=== PATIENT | male | born 1950 | race Caucasian/White ===

== ENCOUNTER 2023-05-14 11:08 | Outpatient (CLI) | payer MEDICARE, SELFPAY ==
[2023-05-14 11:32] LABS: Basophils Absolute Auto 0.1 K/mm3 (0.0-0.1); Eosinophils Absolute Auto 0.4 K/mm3 (0-0.3); Eosinophils Percent Auto 5.9 % (0-4.4); Hemoglobin 12.7 g/dL (14.0-18.0); Immature Granulocyte Absolute 0.02 K/mm3 (0.00-0.031); Immature Granulocyte Percent A 0.3 % (0-0.5); Lymphocytes Absolute Auto 1.61 K/mm3 (0.9-3.2); Lymphocytes Percent Auto 22.7 % (18.3-44.2); Mean Corpuscular HGB Conc 33.4 g/dl (32-36); Mean Corpuscular Hemoglobin 31.4 pg (26-34); Mean Corpuscular Volume 93.8 fl (80-100); Mean Platelet Volume 9.5 fl (7.4-10.4); Monocytes Percent Auto 13.8 % (2.6-8.5); Neutrophils Percent Auto 56.3 % (45.5-73.1); Platelet Count Result 312 k/mm3 (150-375); Red Blood Count 4.05 M/mm3 (4.6-6.20); Red Cell Distribution Width 13.8 % (11.5-14.5); White Blood Count 7.1 K/mm3 (4.5-10.0)
[2023-05-14 20:51] LABS: Iron 117 ug/dL (49-181)
[2023-05-14 21:02] LABS: Percent Iron Saturation 44 % (20-50)
[2023-05-14 21:30] LABS: Alanine Aminotransferase 16 U/L (6-50); Albumin Level 4.6 g/dL (3.5-5.1); Alkaline Phosphatase 94 U/L (38-126); Anion Gap 8 mmol/L (8-16); Aspartate Amino Transferase 29 U/L (17-59); Bilirubin,Total 0.9 mg/dL (0.2-1.3); Blood Urea Nitrogen 18 mg/dL (9-20); Calcium 9.9 mg/dL (8.4-10.2); Carbon Dioxide 24 mmol/L (22-30); Chloride 102 mmol/L (98-107); Estimated Glomerular Filt Rate > 60; Glucose 87 mg/dL (65-110); Lactate Dehydrogenase 159 U/L (120-246); Potassium 5.1 mmol/L (3.4-5.0); Sodium 134 mmol/L (137-145)
[2023-05-14 22:36] LABS: Folic Acid > 20.0 ng/mL (2.76->20)
[2023-05-17 20:10] LABS: Methylmalonic Acid 86 nmol/L (87-318)
[2023-05-19 16:54] LABS: Soluble Transferrin Receptor 0.75 mg/L (0.76-1.76)
== END 2023-05-14 11:09 | disposition home or self-care (01) ==
LOC: ANHLAB 11:13
PROVIDERS: Nurse Practitioner Family; Visit Provider Internal Medicine Hematology & Oncology
DX: D64.9 Anemia, unspecified (principal)
CPT/HCPCS: 36415; 80053; 82607; 82728; 82746; 83540; 83550; 83615; 83921; 84238; 85025

== ENCOUNTER 2024-12-10 03:08 | Emergency (ER) | payer MEDICARE, SELFPAY ==
--- NOTE | ~2024-12-10 | CT_ITS ---
EXAMINATION: CT cervical spine wo con DATE: 12/10/2024 03:50 INDICATION: Head injury post fall TECHNIQUE: Computed tomography (CT) of the cervical spine was performed without intravenous contrast. Automated exposure control and iterative reconstruction technique were employed. The dose-length pro duct was 318.69 mGy-cm. COMPARISON: None FINDINGS: Mild cervical levocurvature. Sagittal alignment is normal. Severe osteoarthritis at the atlantoaxial articulation. Vertebral body heights are normal. No fracture. Severe disc height loss with degenerati ve endplate changes and moderate left-sided and severe right-sided uncovertebral osteoarthritis. Mode rate disc height loss at C6-C7. Mild uncovertebral osteoarthritis at the remaining levels. Mild to mo derate multilevel cervical facet osteoarthritis. Atherosclerotic calcific a cyst at the bilateral car otid bulbs. Mild emphysema and mild biapical pleural-parenchymal scarring. Partially visualized to a cardiac pacemaker and reverse right total shoulder arthroplasty seen on the robotics specialist topogram. IMPRESSION: 1. Severe lower cervical spondylosis. No acute osseous abnormality. Reviewed, dictated and finalized at location A.
--- NOTE | ~2024-12-10 | CT_ITS ---
EXAMINATION: CT brain wo con DATE: 12/10/2024 03:50 INDICATION: Head injury post fall TECHNIQUE: Computed tomography (CT) of the head was performed without intravenous contrast. Sagittal and coronal reconstructions were performed. The mA was adjusted according to patient size. Iterative reconstruction technique was employed. The dose-length product was 681.00 mGy-cm. COMPARISON: None FINDINGS: No fracture. Small amount of subarachnoid hemorrhage along a few of the sulci in the right occipital lobe. There are multiple old infarcts including In bilateral occipital lobes, bilateral frontoparieta l regions, bilateral thalami and bilateral basal ganglia. No evident acute infarct. There is extensiv e scattered white matter hypoattenuation consistent with chronic small vessel ischemic disease. Symme tric prominence of the sulci and ventricles consistent with moderateage-appropriate diffuse cerebral volume loss. No mass/mass effect. Changes of bilateral intraocular lens replacement. The orbits, para nasal sinuses and mastoid air cells are normal. Intracranial calcified cerebral atherosclerosis is no jyoti. IMPRESSION: 1. Subarachnoid hemorrhage at the right occipital lobe. 2. 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 2. Age-related changes including moderate diffuse volume loss and extensive white matter hypoattenuat ion consistent with chronic small vessel ischemic disease. Reviewed, dictated and finalized at location A. IMPRESSION: 1. Subarachnoid hemorrhage at the right occipital lobe. 2. Multiple old infarcts in the bilateral thalami, basal ganglia and cerebral h emispheres. 2. Age-related changes including moderate diffuse volume loss and extensive whi te matter hypoattenuation consistent with chronic small vessel ischemic disease .
[2024-12-10 03:08] VITALS: BP 124/62; PULSE 73; RESP 17; O2SAT 98
[2024-12-10 03:31] VITALS: BP 121/61; PULSE 67; RESP 12; O2SAT 98
[2024-12-10 03:51] VITALS: BP 118/59; PULSE 65; RESP 14; TEMP 36.6; O2SAT 98
--- NOTE | 2024-12-10 04:00 | PC.NURSE ---
Nicole called and made aware pt is being transferred to [facility] for higher level of care.
[2024-12-10 04:01] VITALS: BP 120/58; PULSE 60; RESP 12; O2SAT 97
--- NOTE | 2024-12-10 04:19 | ED.FALL ---
HPI - Fall General Chief Complaint: Fall Stated Complaint: FALL Time Seen by Provider: 12/10/24 03:08 History of Present Illness HPI Narrative: Patient is a 74-year-old male who presents to the emergency department this evening status post a ground level fall at his nursing facility. Patient was found face down on the ground. He was recently discharged from [facility] after pacemaker placement and was at this group home for only 1 day. Patient was started on blood thinners after the pacemaker placement with Eliquis. Patient denies any loss of consciousness. States that he was trying to reach for something and accidentally reached too far causing him to fall forward. He denies any additional symptoms or concerns. He is answering all my questions appropriately and is alert oriented to person, place, time and situation. Related Data Allergies Allergy/AdvReac Type Severity Reaction Status Date / Time meperidine Allergy Intermediate Vomiting Verified 12/10/24 04:30 Review of Systems Review of Systems: All systems are reviewed and are negative unless stated otherwise in the HPI. Exam Narrative: General: Alert, awake, afebrile, in no acute distress. HEENT: PERRL, no rhinorrhea, no post nasal drip, oropharynx clear. Neck: Trachea midline, no JVD, no lymphadenopathy. Cardiovascular: Regular rate and rhythm, no murmurs, rubs or gallops, no peripheral edema. Respiratory: Clear to auscultation bilaterally, no tachypnea, no wheezing, no rhonchi, no rubs, no respiratory distress. Abdomen: Soft, nontender, nondistended, no rebound, no guarding, no peritoneal signs. Musculoskeletal: No joint swelling or deformity, normal muscle tone. Skin: No rashes or petechia, no signs of infection. Psychiatric: Alert and oriented, normal behavior and judgment for situation. Neurological: Alert and oriented to person, place, and time. Follows all commands. Moving all extremities spontaneously, cranial nerves 2-12 grossly intact, sensation intact bilateral upper and lower extremity. No focal deficits, speech is clear and fluent. Course Vital Signs Vital signs: Vital Signs Pulse Rate 73 12/10/24 03:08 Respiratory Rate 17 12/10/24 03:08 Blood Pressure 124/62 12/10/24 03:08 Pulse Oximetry 98 12/10/24 03:08 Oxygen Delivery Room Air 12/10/24 03:08 Temperature 98 F 12/10/24 03:51 Pulse Rate 60 12/10/24 04:01 Respiratory Rate 12 12/10/24 04:01 Blood Pressure 120/58 L 12/10/24 04:01 Pulse Oximetry 97 12/10/24 04:01 Oxygen Delivery Room Air 12/10/24 03:08 MDM - Fall MDM Narrative Medical decision making narrative: The patient was evaluated by myself in the emergency department. History is obtained from patient who is an independent historian and physical exam was performed. External medical records were reviewed at this time. IV was established and pertinent tests were ordered. Imaging studies obtained included a CT brain and C-spine without IV contrast which was independently interpreted by me revealing trace hemorrhage overlying the right occipital lobe, which is pending final radiology interpretation. Differential diagnosis considerations include fractures, dislocations, intracranial hemorrhage. Comorbidities impacting this visit include thinner use. I have evaluated and discussed social determinants of health with the patient that could potentially impact subsequent diagnosis and treatment plans. On repeat assessment of the patient, reevaluation revealed that the patient is doing well and is in no acute distress. Patient symptoms have remained stable since he arrived to our emergency department. Repeat vital signs were all reviewed and noted to be stable. Differential diagnosis and treatment plan were discussed with the patient at bedside. Patient agrees with discussion and after shared medical decision making agrees with transfer. All questions were answered to the patient's satisfaction. [facility] transfer line was contacted at 0430 and transfer was initiated. Transfer was accepted under accepting physician Dr. Acevedo at 0440. Given the patient is on Eliquis. He was started on PCC for reversal. Critical care time of 50 minutes, exclusive of separately performed procedures, necessary for treating or preventing eminent or life-threatening deterioration of patient's condition of traumatic intracranial hemorrhage require reversal agent with Kcentra, focused on patient care provided personally by me and time spent during initial evaluation, physical examination, ordering and performing treatments and interventions, ordering and reviewing laboratory studies, ordering and reviewing radiographic studies, re-evaluation of the patient's condition, evaluation of the patient's response to treatment, and discussion of patient case with consultants/accepting physician at transfer facility. Critical Care Time Critical Care Time Critical Care Time: Yes Total Critical Care Time: 50 (Please refer to [facility] for attestation) Discharge Plan Discharge Clinical Impression: Fall from ground level, Subarachnoid hemorrhage Patient Disposition: Acute Care Hospital Condition: Stable Patient Language: Guyanese Follow-up/Referrals: UNKNOWN,DOCTOR [Primary Care Provider] - Time of Disposition: 04:20
--- NOTE | 2024-12-10 04:30 | PC.NURSE ---
CHARAN Benjamin from [facility] made aware pt being transferred.
--- OUTSIDE RECORDS SUMMARY | 2024-12-10 04:31 | XMS_ITS | Clinical Summary ---
Author Organization [facility] Address [address] [place] [address] Care Team Providers Care Food Mixer Repairer Name Role Phone Latanya Callejas MD Primary Care Provider Source Comments [facility],non-owned Affiliates and Associated Physician Practices is amultiple site organization consisting of ambulatory clinics and hospital sitesin [place], [place], [place] and [place]. This disclosure is being madepursuant to the Care Everywhere program and may not contain all information available regarding this patient. Last updated 18.[facility] Allergies Active Allergy Reactions Criticality Noted Date Comments Meperidine Other,Vomiting Low 10/16/2008 Medications * Be aware that medications may not be up to date on this document. Alwaysverify current medications with the patient. atorvastatin (Lipitor) 80 MG tablet Take 1 (one) tablet by mouth once daily Active cetirizine (ZyrTEC) 10 MG tablet Take 1 (one) tablet by mouth every morning 09/02/2023 Active clopidogrel (plaVIX) 75 MG tablet Take 1 (one) tablet by mouth every morning Active ezetimibe (Zetia) 10 MG tablet 10/12/2023 Active ferrous sulfate 325 (65 FE) MG tablet Take by mouth once daily Active lisinopril (Prinivil; Zestril) 10 MG tablet Take 1 (one) tablet by mouth once daily Active magnesium oxide (Mag-Ox) 400 MG tablet Take 1 tablet every day by oral route. Active Thiamine HCl (GNP Vitamin B-1) 100 MG TABS 09/24/2023 Active folic acid (Folvite) 1 MG tablet Take 1 (one) tablet by mouth once daily Active fluticasone propionate (Flonase) 50 MCG/ACT nasal spray 04/04/2024 Active apixaban (Eliquis) 5 MG tablet Take 1 (one) tablet by mouth 2 times daily 180 tablet 3 06/21/2024 Active metoprolol tartrate IR (Lopressor) 25 MG tablet Take 1 (one) tablet by mouth 2 times daily 180 tablet 3 06/21/2024 Active Aspirin 81 MG CAPS aspirin 81 mg tablet Active tamsulosin (Flomax) 0.4 MG capsule Take 1 (one) capsule by mouth once daily At the same time every day after a meal. 30 capsule 1 10/14/2024 Active Active Problems Problem Noted Date Diagnosed Date History of hypertension 06/10/2024 Vertebral artery stenosis, unspecified lateralit y 03/10/2024 Lightheadedness 03/08/2024 History of stroke 02/19/2024 Bradycardia 02/18/2024 Paresthesia 12/11/2023 Vertebral artery stenosis 12/02/2023 Transient ischemic attack 11/09/2023 Supraventricular tachycardia 10/20/2023 Glenohumeral arthritis, right 05/29/2023 Hyponatremia 02/24/2023 Anemia 11/04/2022 Environmental allergies 11/04/2022 Hyperglycemia 11/04/2022 Pain in joint of right shoulder 11/04/2022 Vitamin D deficiency 11/04/2022 Diverticulitis 01/14/2022 Abnormal cardiovascular stress test 10/22/2021 Chronic rhinitis 01/30/2020 Diplopia 01/30/2020 Essential hypertension 01/30/2020 Wax in ear 01/30/2020 Nocturia 09/05/2016 Dizziness and giddiness 11/22/2015 Sinus bradycardia 11/22/2015 Atherosclerotic heart diseas e of [place] coronary artery without angina pectoris 06/01/1959 Hyperlipidemia 06/01/1959 Shortness of breath 06/01/1959 Resolved Problems Problem Noted Date Diagnosed Date Resolved Date Upper respiratory infection 12/08/2023 03/03/2024 Encounters Date Type Department Care Team Description 10/25/2024 9:24 AM CDT - 10/25/2024 2:12 PM CDT Hospital Encounter [facility] [address] [place] [address] Tyrone Huang MD [facility] Discharge Disposition: Home or Self Care 10/25/2024 Travel 10/21/2024 Telephone [facility] [address] [place] [address] Bbee Feliciano RN Procedure (Pre-Call) 10/19/2024 Refill [facility] [id number] [place] [phone] Meliza Flanagan, OPERATIONS OFFICER AFLOAT-GLOBAL POSITION SYSTEM TECHNICIAN Refill Request 10/14/[address] [phone] Meliza Flanagan, OPERATIONS OFFICER AFLOAT-GLOBAL POSITION SYSTEM TECHNICIAN MEDICATION REFILL 09/28/2024 2:00 PM CDT Office Visit [address] [phone] Tyrone Huang MD Bilateral carotid artery stenosis (Primary Dx); Vertebral artery stenosis, unspecified laterality 09/20/[address] [phone] Tyrone Huang MD Medication Management 09/14/[address] [phone] Tyrone Huang MD Imaging Results (MRI) from Last 3 Months Social History Tobacco Use Types Packs/Day Years Used Date Smoking Tobacco: Former Cigarettes Q uit: 1989 Passive Smoke Exposure: Past Smokeless Tobacco: Never Tobacco Cessation:Counseling Given: Not Answered Alcohol Use Standard Drinks/Week Comments Yes 21 (1 standard drink = 0.6 oz pu re alcohol) AUDIT-C Answer Date Recorded Q1: How often do you have a drink containing alcohol? 4 or more times a week 06/14/2024 Q2: How many drinks containi ng alcohol do you have on a typical day when you are drinking? 3 or 4 Q3: How often do you have si x or more drinks on one occasion? Never 06/14/2024 Overall Financial Resource Strain (CARDIA) Answe r Date Recorded How hard is it for you to pa y for the very basics like food, housing, medical care, and heating? Not very hard 06/14/2024 PHQ-2 Answer Date Recorded Patient Health Questionnaire-2 Score 0 06/18/2024 [facility] [place] [facility] Occupat ional Health - Occupational Stress Questionnaire Answer Date Recorded Do you feel stress - tense, restless, nervous, or anxious, or unable to sleep at night because your mind is troubled all the time - these days? Not at all 06/14/2024 Hunger Vital Sign Answer Date Recorded Within the past 12 months, y ou worried that your food would run out before you got the money to buy more. Never true 06/14/19 25 Within the past 12 months, t he food you bought just didn't last and you didn't have money to get more. Never true 06/14/2024 PRAPARE - Transportation Answer Date Re corded In the past 12 months, has l ack of transportation kept you from medical appointments or from getting medications? No 06/01 In the past 12 months, has l ack of transportation kept you from meetings, work, or from getting things needed for daily living? No 06/14/2024 Housing Stability Vital Sign Answer Juan J e Recorded In the last 12 months, was t here a time when you were not able to pay the mortgage or rent on time? No 03/10/2024 In the last 12 months, how many places have you lived? 1 03/10/2024 In the last 12 months, was t here a time when you did not have a steady place to sleep or slept in a usp (including now)? No 03/10/2024 Housing Stability Vital Sign Answer Juan J e Recorded In the last 12 months, was t here a time when you were not able to pay the mortgage or rent on time? No 06/14/2024 In the past 12 months, how m any times have you moved where you were living? 1 06/14/2024 At any time in the past 12 m [facility], were you homeless or living in a usp (including now)? No 06/14/2024 Sex and Gender Information Value Date Recorded Sex Assigned at Male 02/26/2024 4:44 PM CDT Legal Sex Male 8:20 AM CDT Gender Identity Male 02/26/2024 4:44 PM CDT Sexual Orientation Straight 02/26/2024 4: 44 PM CDT Last Filed Vital Signs Vital Sign Reading Time Taken Comments Blood Pressure 152/70 10/25/2024 1:45 PM CDT Pulse 50 10/25/2024 1:45 PM CDT Temperature 36.4 C (97.6 F) 06/21/2024 8:00 AM CARDIAC EXERCISE PHYSIOLOGIST Respiratory Rate 14 10/25/2024 1:45 PM CDT Oxygen Saturation 98% 10/25/2024 1:45 PM CDT Inhaled Oxygen Concentration - - Weight 75.8 kg (167 lb) 09/28/2024 2:20 PM CDT Height 170.2 cm (5' 7) 08/03/2024 3:15 PM CARDIAC EXERCISE PHYSIOLOGIST Body Mass Index 26.16 08/03/2024 3:15 PM CARDIAC EXERCISE PHYSIOLOGIST Plan of Treatment Health Maintenance Due Date Last Done Comments COLOGUARD (AGES 45-75) - COLON CA SCREENING 1949 COLON MONITORING 1949 COLONOSCOPY - COLON CA SCREENING 1949 CT COLONOGRAPHY - COLON CA SCREENING 1949 Colorectal Cancer Screening 1949 FIT - COLON CA SCREENING 1949 FLEX SIG - COLON CA SCREENING 1949 HEPATITIS C SCREENING 11/10/1967 DTAP/TDAP/TD VACCINES (1 - Tdap) 1968 PNEUMOCOCCAL VACCINE 50+ (1 of 1 - PCV) 11/15/1999 ZOSTER VACCINE (1 of 2) 11/15/1999 COVID-19 VACCINE ( - season) 2024 05/14/2022, 11/08/2021, 03/31/2021, Additional history exists MEDICARE AWV CALENDAR YEAR 2024 Respiratory Syncytial Virus (RSV) Vaccine Pt: or over 60 yrs (1 - 1-dose 75+ series) 2024 INFLUENZA VACCINE (#1) 2025 , 03/27/2017, 05/16/2016, Additional history exists DEPRESSION SCREENING Completed 08/03/2024 HEPATITIS B VACCINE Aged Out No longe r eligible based on patient's age to complete this topic HIB VACCINE Aged Out No longer eligi ble based on patient's age to complete this topic HPV VACCINE Aged Out No longer eligi ble based on patient's age to complete this topic MENINGOCOCCAL (Group B) VACCINE SHARED DECISION-MAKING Aged Out No longer eligible based on patient's age to complete this topic MENINGOCOCCAL GROUPS A/C/Y/W VACCINE Aged Out No longer eligible based on patient's age to complete this topic Medical Devices Implanted Type Area Sterile Proc Tech Device Identifier Shelf Expiration Date Model / Serial / Lot Stent-03/10/20 24 Implanted:Qty: 1 on 03/10/2024 by Tyrone Huang MD Stent Left: Carotid [employer] 08/01/2026 SURPASS EVOLVE / [id number] / [id number] Description:Left [employer] [place] Implanted:Qty: 1 on 06/14/2024 by Tyrone Huang MD at [facility] Carotid [employer] [id number] 12/10/2026 [id number] 30 / / [id number] Description:Pipeline deploye d into R ICA by Ba Zuñiga at 1225on 06/14/24 Sys Cor Stent Sng Xd Mr 2.25mm 20mm Dlv Implanted:Qty: 1 on 06/15/2024 by Renaldo Velasquez MD at [facility] [employer] [facility] [id number] 06/23/2025 [id number] / NA / [id number] Sys Cor Stent Sng Xd Mr 2.5mm 8mm Dlv Implanted:Qty: 1 on 06/15/2024 by Renaldo Velasquez MD at [facility] [employer] [facility] [id number] 01/13/2025 [id number] / NA / [id number] Sys Cor Stent Sng Xd Mr 2.5mm 8mm Dlv Implanted:Qty: 1 on 06/15/2024 by Renaldo Velasquez MD at [facility] [employer] [facility] [id number] 10/13/2025 [id number] / NA / [id number] Procedures Procedure Name Priority Date/Time Associated Diagnosis Comments IR CAROTID CEREBRAL ANGIOGRAM Routine 10/25/2024 11:50 AM CDT Bilateral carotid artery stenosis Vertebral artery stenosis, unspecified laterality PT-INR STAT 10/25/2024 10:31 AM CDT Vertebral artery disease CBC W AUTO DIFFERENTIAL PARDEEP 10/25/2024 10:31 AM CDT Vertebral artery disease BASIC METABOLIC PANEL (CALCIUM TOTAL) PARDEEP 10/25/2024 10:31 AM CDT Vertebral artery disease from Last 3 Months Results * IR Carotid Cerebral Angiogram (10/25/2024 11:50 AM CDT) Anatomical Region Laterality Modality Head X-Ray Angiograph y Narrative 10/25/2024 11:45 AM CDT Tyrone Huang MD 10/25/2024 11:56 AM DIAGNOSTIC CEREBRAL ANGIOGRAM REPORT Procedure: Cerebral angiogram 10/25/2024. Primary physician: Latanya Callejas MD. Comparison study: MR angiography Indication and Pre-Op imaging: The patient is a 73 year old year-old year old he who presents with a recent TIA and MRA showed artifact through the intracranial stents. Post-operative diagnosis: Patent bilateral stent Operators: Tyrone Huang MD Vessels: L Vertebral artery L Common Carotid Artery R Common Carotid Artery R Femoral Artery 5F Mynx closure device deployment Anesthesia: Local and IV Sedation Medications: If sedation medications was administered, it was under my direction as documented in the MAR Procedural details: The risks, benefits, and alternatives to the procedure were discussed in detail with the patient and family. he indicated understanding and wished to proceed. The patient was brought to the biplane angiography suite where he underwent routine prep and drape procedures. A 5F sheath was placed in the right femoral artery and a 5F, Valencia II glide catheter was navigated into the aortic arch. It was used to select the brachiocephalic artery followed by the right common carotid artery and a cervical and cerebral angiogram was obtained. The catheter was returned to the arch and used to select the left common carotid artery and a cervical and cerebral angiogram was obtained. The catheter was returned to the arch and used to select the left subclavian artery followed by the left vertebral artery and a cervical and cerebral angiogram were obtained. A femoral artery angiogram was obtained through the sheath. All catheters and sheaths were removed from the femoral artery. Hemostasis was achieved using a 5F Mynx closure device. Hemostasis was immediate at the end of the closure procedure. The right dorsalis pedis pulse was palpable at the end of the closure procedure. The patient tolerated the procedure without immediate complications. he was returned to the recovery area in hemodynamically stable condition and neurologically unchanged. Estimated blood loss: negligible; Fluoroscopic Time: 3.9 minutes; Contrast Utilized: 50mL Findings: There was good arterial, capillary, and venous opacification on all angiographic runs. The left vertebral artery angiogram reveals normal V1, V2, and V3 segments. There is evident stenosis at the V4 segment measuring 70%. In addition, a moderate stenosis in the mid basilar artery measuring 60%. The vertebrobasilar junction, basilar artery, and major vessels to the cerebellum are normal in course and caliber as are the posterior cerebral arteries. The right common carotid artery angiogram reveals a carotid bifurcation that is free of hemodynamically significant atherosclerotic disease or fibromuscular dysplasia. The right internal carotid artery angiogram reveals a petrous and supraclinoid internal carotid artery that are normal in course and caliber as is the carotid terminus. 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 The M1, M2, A1, and A2 segments are also normal in course and caliber. The major dural sinuses and deep cerebral veins are normal in course and caliber. The right external carotid artery is normal in course and caliber. The left common carotid artery angiogram reveals a carotid bifurcation that is free of hemodynamically significant atherosclerotic disease or fibromuscular dysplasia. The left internal carotid artery angiogram reveals a petrous and supraclinoid internal carotid artery that are normal in course and caliber as is the carotid terminus. The previously implanted stent in the cavernous carotid artery appeared patent with residual stenosis of 30%. The M1, M2, A1, and A2 segments are also normal in course and caliber. The major dural sinuses and deep cerebral veins are normal in course and caliber. The left external carotid artery is normal in course and caliber. The femoral artery angiogram shows a puncture site above the femoral bifurcation. Impression: Evidence of intracranial atherosclerotic disease - Moderate to severe stenosis in the dominant left vertebrobasilar artery measuring 70% at the V4 segment and 60% in mid basilar artery. - Patent stent in the left cavernous carotid artery with residual stenosis of 30%. - Patent stent in the right cavernous carotid artery with residual stenosis of 60%. Plan: - Continue best medical management. Tyrone Huang MD Interventional Vascular Neurology [facility] [employer] [place] Pager- [phone] Nurse Practitioner (ASCOM [id number]) us Tyrone Huang MD IR ORDERABLES Final Result * (ABNORMAL) PT-INR (10/25/2024 10:31 AM CDT) Pathologist [facility] PT 16.2(H) 12.1 - 14.8 sec 10/25/2024 10:52 AM CDT [facility] INR 1.3(H) 0.9 - 1.1 10/25/2024 10:52 AM CDT [facility] Blood BLOOD SPECIMEN / Unknown Venipuncture / Unknown 10/25/2024 10:31 AM CDT 10/25/2024 10:35 AM CDT Narrative [facility] - 10/25/2024 10:52 AM CDT Conventional Warfarin Anticoagulant Therapy: INR Reference Range: 2.0-3.0 Intensive Warfarin Anticoagulant Therapy: INR Reference Range: 2.5-3.5 us Tyrone Huang MD LAB - COAGULATION ORDERABLES Final Result [facility] [address] [place] [address] * (ABNORMAL) CBC W AUTO DIFFERENTIAL (10/25/2024 10:31 AM CDT) Pathologist [facility] WBC 8.1 4.0 - 10.7 x10E9/L 10/25/2024 10:49 AM CDT [facility] RBC Count 4.05(L) 4.30 - 5.80 x10E12/L 10/25/2024 10:49 AM CDT [facility] Hemoglobin 12.0(L) 13.3 - 17.5 g/dL 10/25/2024 10:49 AM CDT [facility] Hematocrit 36.8(L) 38.7 - 51.1 % 10/25/2024 10:49 AM CDT [facility] MCV 90.9 80.0 - 98.0 fL 10/25/2024 10:49 AM CDT [facility] MCH 29.6 26.7 - 33.6 pg 10/25/2024 10:49 AM CDT [facility] MCHC 32.6 31.7 - 36.3 g/dL 10/25/2024 10:49 AM CDT [facility] RDW-CV 14.1 11.3 - 14.8 % 10/25/2024 10:49 AM CDT [facility] Platelet Count 260 150 - 420 x10E9/L 10/25/2024 10:49 AM CDT [facility] MPV 9.5 7.8 - 11.4 fL 10/25/2024 10:49 AM CDT [facility] Neutrophil % 65.3 41.0 - 74.0 % 10/25/2024 10:49 AM CDT [facility] Lymphocyte % 20.5 17.0 - 47.0 % 10/25/2024 10:49 AM CDT [facility] Monocyte % 9.1 3.0 - 11.0 % 10/25/2024 10:49 AM CDT [facility] Eosinophil % 4.0 0.0 - 7.0 % 10/25/2024 10:49 AM CDT [facility] Basophil % 0.9 0.0 - 1.6 % 10/25/2024 10:49 AM CDT [facility] Immature Granulocytes % 0.2 0.0 - 1.0 % 10/25/2024 10:49 AM CDT [facility] Neutrophil Absolute 5.28 1.60 - 7.50 x10E9/L 10/25/2024 10:49 AM CDT [facility] Lymphocyte Absolute 1.66 1.00 - 4.40 x10E9/L 10/25/2024 10:49 AM CDT [facility] Monocyte Absolute 0.74 0.15 - 1.00 x10E9/L 10/25/2024 10:49 AM CDT [facility] Eosinophil Absolute 0.32 0.00 - 0.60 x10E9/L 10/25/2024 10:49 AM CDT [facility] Basophil Absolute 0.07 0.00 - 0.13 x10E9/L 10/25/2024 10:49 AM CDT [facility] Blood BLOOD SPECIMEN / Unknown Venipuncture / Unknown 10/25/2024 10:31 AM CDT 10/25/2024 10:35 AM CDT Tyrone Huang MD LAB - HEMATOLOGY ORDERABLES F inal Result [facility] [address] [place] [address] * (ABNORMAL) BASIC METABOLIC PANEL (CALCIUM TOTAL) (10/25/2024 10:31 AM CDT) Pathologist [facility] Glucose 104(H) 70 - 99 mg/dL 10/25/2024 10:51 AM CDT [facility] Sodium 137 136 - 145 mmol/L 10/25/2024 10:51 AM CDT [facility] Potassium 4.5 3.5 - 5.1 mmol/L 10/25/2024 10:51 AM CDT [facility] Chloride 104 98 - 107 mmol/L 10/25/2024 10:51 AM CDT [facility] CO2 24 22 - 29 mmol/L 10/25/2024 10:51 AM CDT [facility] Calcium 9.2 8.4 - 10.4 mg/dL 10/25/2024 10:51 AM [facility] Anion Gap 9 6 - 16 mmol/L 10/25/2024 10:51 AM CDT [facility] BUN 19 7 - 26 mg/dL 10/25/2024 10:51 AM CDT [facility] Creatinine 0.93 0.72 - 1.25 mg/dL 10/25/2024 10:51 AM T [facility] eGFR by CKD-EPI 86(L) >=90 mL/min/1.7 3 m2 10/25/2024 10:51 AM CDT [facility] Blood BLOOD SPECIMEN / Unknown Venipuncture / Unknown 10/25/2024 10:31 AM CDT 10/25/2024 10:35 AM CDT us Tyrone Huang MD LAB - CHEMISTRY ORDERABLES Fi nal Result [facility] [address] [place] [address] from Last 3 Months Insurance [employer] MEDICARE ADV HMO & PPO Advance Directives * Full Code (Latest Code Status on File) Date Activated Date Inactivated Comments 06/15/2024 7:06 PM 06/21/2024 1:12 PM Care Teams Food Mixer Repairer Relationship Specialty Start Date End Date Latanya Callejas MD [address] [phone] PCP - General Internal Medicine 02/17/24
--- OUTSIDE RECORDS SUMMARY | 2024-12-10 04:32 | XMS_ITS | Encounter Summary ---
Author Organization [facility] Healthcare Address [address] [place] [address] Care Team Providers Care Waste Disposal Attendant Name Role Phone Raquel Callejas MD Primary Care Provide r Chetan Mayer MD Unavailable Sage Tillman MD Unavailable Michael Pretty MD Unavailable [phone] Tawny CLAYTON MD, Ricky Duong Unavailable [phone] Reason for Visit * Auth/Cert (Routine) Specialty Diagnoses / Procedures Referred By Contac t Referred To Contact Diagnoses Fever and chills CVA Procedures na Referral ID Status Reason Start Date Expiration Date Visits Re quested Visits Authorized [id number] 1 1 Encounter Details Date Type Department Care Team (Latest Contact Info) Description 11/27/2024 9:48 AM CDT - 12/09/2024 8:08 PM CDT Hospital Encounter [facility] [address] [place] [address] [place] [id number] [employer] [address] [address] [place] [id number] [employer] [address] [address] [place] [id number] [facility] [address] [place] [address] Hyperlipidemia (Primary Dx); Essential hypertension Discharge Disposition: Discharge to SNF Social History Tobacco Use Types Packs/Day Years Used Date Smoking Tobacco: Former Cigarettes Q uit: 1999 Smokeless Tobacco: Never Alcohol Use Standard Drinks/Week Comments Yes 30 (1 standard drink = 0.6 oz pu re alcohol) [facility] Utilities Answer Date Recorded In the past 12 months has [employer], gas, oil, or water [employer] threatened to shut off services in your home? No 11/28/2024 Social Connection and Isolation Panel [NHANES] A nswer Date Recorded In a typical week, how many times do you talk on the phone with family, friends, or neighbors? Twice a week 11/28/2024 How often do you get together with friends or re latives? Twice a week 11/28/2024 How often do you attend temple or hindu serv ices? Never 11/28/2024 Do you belong to any clubs o r organizations such as temple groups, unions, fraternal or athletic groups, or school groups? No 11/28/2024 How often do you attend meet ings of the clubs or organizations you belong to? Never 11/28/2024 Are you , , di vorced, , never , or living with a partner? 11/28/2024 AUDIT-C Answer Date Recorded Q1: How often do you have a drink containing alcohol? 4 or more times a week 11/18/2024 Q2: How many drinks containi ng alcohol do you have on a typical day when you are drinking? 3 or 4 Q3: How often do you have si x or more drinks on one occasion? Never 11/18/2024 Overall Financial Resource Strain (CARDIA) Answe r Date Recorded How hard is it for you to pa y for the very basics like food, housing, medical care, and heating? Not hard at all 11/28/2024 PHQ-2 Answer Date Recorded Patient Health Questionnaire-2 Score 0 11/27/2024 [facility] - Occupational Stress Questionnaire Answer Date Recorded Do you feel stress - tense, restless, nervous, or anxious, or unable to sleep at night because your mind is troubled all the time - these days? Only a little 10/30/2024 Hunger Vital Sign Answer Date Recorded Within the past 12 months, y ou worried that your food would run out before you got the money to buy more. Never true 11/29/19 25 Within the past 12 months, t he food you bought just didn't last and you didn't have money to get more. Never true 11/28/2024 PRAPARE - Transportation Answer Date Re corded In the past 12 months, has l ack of transportation kept you from medical appointments or from getting medications? No 11/01 In the past 12 months, has l ack of transportation kept you from meetings, work, or from getting things needed for daily living? No 11/28/2024 PHQ-9 Answer Date Recorded PHQ-9 Total Score 3 11/18/2024 Housing Stability Vital Sign Answer Juan J e Recorded In the last 12 months, was t here a time when you were not able to pay the mortgage or rent on time? No 11/28/2024 In the past 12 months, how m any times have you moved where you were living? 0 11/28/2024 At any time in the past 12 m [facility], were you homeless or living in a snf (including now)? No 11/28/2024 Personal Safety Answer Date Recorded Have you ever been in or are you currently in a harmful physical or emotional relationship or is someone making you feel afraid or unsafe? 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 Gender Identity Not on file Sexual Orientation Not on file documented as of this encounter Last Filed Vital Signs Vital Sign Reading Time Taken Comments Blood Pressure 122/55 12/09/2024 3:55 PM CDT Pulse 60 12/09/2024 3:55 PM CDT Temperature 36.8 C (98.2 F) 12/09/2024 3:55 PM CDT Respiratory Rate 20 12/09/2024 3:55 PM CDT Oxygen Saturation 97% 12/09/2024 3:55 PM CDT Inhaled Oxygen Concentration - - Weight 71.6 kg (157 lb 13.6 oz) 025 12:55 PM CDT Height 170.2 cm (5' 7) 12/01/2024 12:5 5 PM CDT Body Mass Index 24.72 12/01/2024 12:55 PM CDT documented in this encounter Functional Status * Over the past 2 weeks, how often have you been bothered by any of the following problems? Question Answer Date of Assessment Author Patient Health Questionnaire -2 Score 0 11/27/2024 7:57 AM CDT Chika Bradley MSW * Over the past 2 weeks, how often have you been bothered by any of the following problems? Question Answer Date of Assessment Author Little interest or pleasure in doing things Not at all 11/27/2024 7:57 AM CDT Chika Bradley MSW Feeling down, depressed, or hopeless Not at all 11/27/2024 7:57 AM CDT Chika Bradley MSW documented as of this encounter Discharge Instructions * Discharge Instr - Diet* Kaia Burton - 12/01/2024 1:03 PM CDT Continue to follow a heart healthy diet that is low in sodium, trans fat and saturated fat. Read the nutrition facts label on packages. Aim to eat less than 2,000mg sodium per day (about 500-700 mg per meal). Do not add salt to foods and avoid foods that are high sources of sodium, such as fast foods, fried/breaded foods, canned goods, deli meats and gravies/sauces. Increase your intake of foods high in fiber, such as whole grains, fruits and vegetables. For questions, can call [facility] Dietitian's Office at [phone]. Additional resources available online from the [employer] at www.heart.org/en/healthy-living/healthy-eating documented in this encounter Medications at Time of Discharge acetaminophen (TYLENOL) 325 mg tablet Take 2 tablets (650 mg total) by mouth every 6 (six) hours as needed for fever 30 tablet 12/09/2024 apixaban (Eliquis) 5 mg tabletIndication s:. Take 1 tablet (5 mg total) by mouth 2 (two) times a day 60 tablet 12/09/2024 atorvastatin (LIPITOR) 80 mg tablet Take 1 tablet (80 mg total) by mouth every morning 30 tablet 12/10/2024 6 cephalexin (KEFLEX) 500 mg capsule Take 1 capsule (500 mg total) by mouth 2 (two) times a day for 7 days 14 capsule 12/09/2024 5 cetirizine (ZyrTEC) 10 mg tabletIndication s:Allergic Rhinitis Take 1 tablet (10 mg total) by mouth every morning 30 tablet 12/09/2024 clopidogreL (PLAVIX) 75 mg tablet Take 1 tablet (75 mg total) by mouth daily 30 tablet 12/09/2024 6 dilTIAZem XR (CARDIZEM CD,DILACOR XR) 240 mg 24 hr capsule Take 1 capsule (240 mg total) by mouth daily 30 capsule 12/10/2024 docusate sodium (COLACE) 100 mg capsuleIndicatio ns:constipation Take 1 capsule (100 mg total) by mouth 2 (two) times a day 30 capsule 12/09/2024 ezetimibe (ZETIA) 10 mg tablet Take 1 tablet (10 mg total) by mouth daily 30 tablet 12/09/2024 famotidine (PEPCID) 20 mg tablet Take 1 tablet (20 mg total) by mouth 2 (two) times a day 60 tablet 11 12/09/2024 ferrous sulfate 325 mg (65 mg of elemental iron) tablet Take 1 tablet (65 mg of elemental iron total) by mouth 2 (two) times a day with meals 60 tablet 12/09/2024 6 fluticasone propionate (FLONASE) 50 mcg/actuation nasal sprayIndications :Allergic Rhinitis Administer 1 spray into each nostril every morning 1 each 12/09/2024 folic acid (FOLVITE) 1 mg tablet Take 1 tablet (1 mg total) by mouth daily 30 tablet 12/09/2024 lisinopriL (PRINIVIL,ZESTRI L) 20 mg tablet Take 1 tablet (20 mg total) by mouth daily 30 tablet 12/10/2024 magnesium oxide (MAG-OX) 400 mg (241.3 mg elemental magnesium) tablet Take 1 tablet (400 mg total) by mouth 2 (two) times a day 60 tablet 12/09/2024 6 megestrol (MEGACE) suspension 400 mg/10 mL Take 10 mL (400 mg total) by mouth daily Shake well just before you measure a dose. Measure with a special dose-measuring spoon or medicine cup, not with a regular table spoon. If you do not have a dose-measuring device, ask your pharmacist for one. 400 mL 12/10/2024 polyethylene glycol (MIRALAX) 17 gram packetIndication s:constipation Take 1 packet (17 g total) by mouth daily 30 packet 12/10/2024 tamsulosin (FLOMAX) 0.4 mg extended release capsule Take 1 capsule (0.4 mg total) by mouth daily with dinner 30 capsule 12/09/2024 thiamine (VITAMIN B1) 100 mg tablet Take 1 tablet (100 mg total) by mouth daily 30 tablet 12/09/2024 documented as of this encounter Ordered Prescriptions Prescription Sig Dispense Quantity Refills Last Filled Start Date End Date cephalexin (KEFLEX) 500 mg capsule Take 1 capsule (500 mg total) by mouth 2 (two) times a day for 7 days 14 capsule 12/09/2024 5 thiamine (VITAMIN B1) 100 mg tablet Take 1 tablet (100 mg total) by mouth daily 30 tablet 12/09/2024 tamsulosin (FLOMAX) 0.4 mg extended release capsule Take 1 capsule (0.4 mg total) by mouth daily with dinner 30 capsule 12/09/2024 famotidine (PEPCID) 20 mg tablet Take 1 tablet (20 mg total) by mouth 2 (two) times a day 60 tablet 11 12/09/2024 6 ezetimibe (ZETIA) 10 mg tablet Take 1 tablet (10 mg total) by mouth daily 30 tablet 12/09/2024 polyethylene glycol (MIRALAX) 17 gram packetIndications: constipation Take 1 packet (17 g total) by mouth daily 30 packet 12/10/2024 megestrol (MEGACE) suspension 400 mg/10 mL Take 10 mL (400 mg total) by mouth daily Shake well just before you measure a dose. Measure with a special dose-measuring spoon or medicine cup, not with a regular table spoon. If you do not have a dose-measuring device, ask your pharmacist for one. 400 mL 12/10/2024 magnesium oxide (MAG-OX) 400 mg (241.3 mg elemental magnesium) tablet Take 1 tablet (400 mg total) by mouth 2 (two) times a day 60 tablet 12/09/2024 lisinopriL (PRINIVIL,ZESTRIL) 20 mg tablet Take 1 tablet (20 mg total) by mouth daily 30 tablet 12/10/2024 folic acid (FOLVITE) 1 mg tablet Take 1 tablet (1 mg total) by mouth daily 30 tablet 12/09/2024 fluticasone propionate (FLONASE) 50 mcg/actuation nasal sprayIndications:A llergic Rhinitis Administer 1 spray into each nostril every morning 1 each 12/09/2024 ferrous sulfate 325 mg (65 mg of elemental iron) tablet Take 1 tablet (65 mg of elemental iron total) by mouth 2 (two) times a day with meals 60 tablet 12/09/2024 apixaban (Eliquis) 5 mg tabletIndications: . Take 1 tablet (5 mg total) by mouth 2 (two) times a day 60 tablet 12/09/2024 docusate sodium (COLACE) 100 mg capsuleIndications :constipation Take 1 capsule (100 mg total) by mouth 2 (two) times a day 30 capsule 12/09/2024 dilTIAZem XR (CARDIZEM CD,DILACOR XR) 240 mg 24 hr capsule Take 1 capsule (240 mg total) by mouth daily 30 capsule 12/10/2024 clopidogreL (PLAVIX) 75 mg tablet Take 1 tablet (75 mg total) by mouth daily 30 tablet 12/09/2024 cetirizine (ZyrTEC) 10 mg tabletIndications: Allergic Rhinitis Take 1 tablet (10 mg total) by mouth every morning 30 tablet 12/09/2024 atorvastatin (LIPITOR) 80 mg tablet Take 1 tablet (80 mg total) by mouth every morning 30 tablet 12/10/2024 acetaminophen (TYLENOL) 325 mg tablet Take 2 tablets (650 mg total) by mouth every 6 (six) hours as needed for fever 30 tablet 12/09/2024 documented in this encounter Discharge Disposition Disposition Code Departure Means Destination Comment s Discharge to SNF documented in this encounter Progress Notes * Kaia Howard COTA - 12/09/2024 11:30 AM CDT Occupational Therapy NOTE / SESSION TYPE: DAILY PROGRESS / TREATMENT Patient's Name: Ayad Shipman Age / Sex: 74 y.o. / male Room: [place] [address] : 1950 Date of service: 12/09/24 TIME IN: 1125 TIME OUT: 1226 Patient Active Problem List Diagnosis Chronic rhinitis Coronary atherosclerosis Essential hypertension Hyperlipidemia Nocturia Wax in ear Diplopia Dizziness and giddiness Rotator cuff arthropathy of right shoulder Anemia Glenohumeral arthritis, right Paresthesia History of stroke Intracranial vascular stenosis Acute CVA (cerebrovascular accident) (HCC) Altered mental status CVA (cerebrovascular accident due to intracerebral hemorrhage) (HCC) Episode of unresponsiveness Sepsis (HCC) Fever and chills Moderate protein-calorie malnutrition Past Medical History: Diagnosis Date Dizziness Hyperlipidemia Hypertension Loss of balance Nocturia Visual disturbance Past Surgical History: Procedure Laterality Date ANKLE SURGERY CARDIAC ELECTROPHYSIOLOGY PROCEDURE N/A 12/07/2024 Procedure: IMPLANT DUAL CHAMBER PPM SYSTEM W/ DUAL ELECTRODES (GEN AND LEADS, NEW OR REPLACE) 24255; Surgeon: Sage Tillman MD; Location: [facility]; Service: Cardiovascular; Laterality: N/A; CORONARY ARTERY BYPASS GRAFT 2004 x4 on Plavix HEART SURGERY LASIK ORAL SURGERY Precautions (including weight-bearing): Fall risk and Bed / chair alarm Subjective: Patient was fixated on having a bowel movement and the pain and discomfort. Therapy Pain: Pre-therapy pain level: 0 /10 Pain location: No pain - Location N/A Pain Intervention(s): No pain - Intervention N/A Post-therapy pain level: 0 /10 Pain scale reference: 0-10 SCALE Objective: Appearance: Presentation upon OT arrival: Patient seated on BSC with GEOSCIENCE PROFESSOR Presentation upon OT departure: Patient in supine with HOB elevated on a bed gonzalez Bed / Chair alarm in place and activated upon OT departure: Yes Call light within arms reach of patient at end of session: Yes Completed patient handoff and notified PATENT CLERK / RN, of patient's location and functional status upon completion of session Cognitive / Perceptual: Oriented x 4 Mobility / Transfers: Bed Mobility: dependent of 2 for sit to supine Transfer(s): mod of 2 for sit to stand from BSC Pivot to recliner max of 2 with no use of left UE due to his pacemaker precautions Max assist of 2 for sit to stand and BSC to recliner Dependent for hygiene with 2 person assist for standing and 3rd person to complete the task Max of 2 recliner to bed Caregiver Present: Yes: Education & Training Provided: Role of OT, OT plan of care, ADL training, and Functional transfer training Assessment: Activity tolerance / response to OT session: FAIR TOLERANCE Progress towards goals: Please refer to care plan from this date for progress towards individual goals Plan: Therapy Plan: Rehab Potential (Prognosis): good OT Recommendations This Date: OT RECOMMENDATIONS: OT Recommendation: Inpatient Rehab Facility Flow sheet updated and OT Consultation in Regards to Change in Discharge Recommendations: YES /NO: N/A Additional recommendation comments: Recommend Inpatient Rehab/Acute Rehab due to: Ability to actively participate in intensive therapy 3 hours/day, 5 days/week or 900 minutes per week, Highly motivated to participate in therapy, Not at baseline due to impaired ability to complete ADLs, Impaired ability to complete functional mobility, Likely to return to the community at discharge with support system in place, Requires greater than 25% physical assistance with most mobility tasks, Requires greater than 25% physical assistance with most ADL tasks, Requires multiple therapy disciplines to address functional deficits Frequency of therapy:OT Frequency during current admission: 3-5x/wk If this is the last note, consider this the discharge summary INA Castrejon 12/09/24 Cosigned by Evelyn Walker OT at 12/09/2024 4:42 PM CDT * Minerva Darby, GEOSCIENCE PROFESSOR - 12/09/2024 11:16 AM CDT Physical Therapy PT PROGRESS NOTE PATIENT'S NAME:Ayad Shipman :1950 AGE:74 y.o. ROOM:[id number] Past Medical History: Diagnosis Date Dizziness Hyperlipidemia Hypertension Loss of balance Nocturia Visual disturbance Past Surgical History: Procedure Laterality Date ANKLE SURGERY CARDIAC ELECTROPHYSIOLOGY PROCEDURE N/A 12/07/2024 Procedure: IMPLANT DUAL CHAMBER PPM SYSTEM W/ DUAL ELECTRODES (GEN AND LEADS, NEW OR REPLACE) 49927; Surgeon: Sage Tillman MD; Location: [facility]; Service: Cardiovascular; Laterality: N/A; CORONARY ARTERY BYPASS GRAFT 2004 x4 on Plavix HEART SURGERY LASIK ORAL SURGERY Patient Active Problem List Diagnosis Chronic rhinitis Coronary atherosclerosis Essential hypertension Hyperlipidemia Nocturia Wax in ear Diplopia Dizziness and giddiness Rotator cuff arthropathy of right shoulder Anemia Glenohumeral arthritis, right Paresthesia History of stroke Intracranial vascular stenosis Acute CVA (cerebrovascular accident) (HCC) Altered mental status CVA (cerebrovascular accident due to intracerebral hemorrhage) (HCC) Episode of unresponsiveness Sepsis ([facility]) Fever and chills Moderate protein-calorie malnutrition TIME IN: 1027 1148 TIME OUT: 1133 1223 SUBJECTIVE Patient reports he needs to have a bowel movement MENTAL STATUS/ORIENTATION: alert and oriented x4 PAIN: Pre-therapy pain level: 0/10 Pain location: n/a Pain intervention: n/a Post-therapy pain level/response to intervention: 0/10 OBJECTIVE PRECAUTIONS: fall and bed / chair alarm APPEARANCE/POSTURE: supine in bed on room air left ue in sling for pace maker precautions soft touch call light next to patient, patient's in room with patient VITAL SIGNS: Post-activity BP: 101/58 Resting heart rate: 60 Post-activity heart rate: 79 MOBILITY DOCUMENTATION: Bed Mobility/Transfers: supine to sit mod assist to lower le and left trunk to the left side, sit to/from stand mod assist of 2, bed to bed side commode max assist of 1 and min assist of 1, bed side commode to/from bed side recliner max assist of 1 min assist of 1 stand pivot with w/w , bed side commode to bed side chair max assist of 2 stand pivot with w/w w/o using left ue due to pace maker precautions and WB through left ue with use of w/w, bed side commode to/from bed side recliner max assist of 2 stand pivot to have a bowel movement Gait: n/a TREATMENT: Increased time with 2 trials on bed side commode to have a bowel movement w/o success (patient received suppository and miralax at end of tx session) APPEARANCE/POSTURE (end of session): sitting in bed side recliner stacia le elevated soft touch call light next to patient, left ue in sling for pace maker precautions HANDOFF: Verbal handoff given to nurse Alejo. ALARMS: Chair alarm in place / active EDUCATION:bed mobility , functional transfer training, safety , and positioning RESPONSE TO EDUCATION: demonstrated understanding and needs reinforcement ASSESSMENT Activity tolerance/response to P.T.: patient todd tx session with c/o feeling unsteady with transfers with having left ue in sling Barriers to learning: Physical and Emotional Barriers to discharge: Cognitive deficit, Limited safety awareness, Decreased endurance, Decreased proprioception, Upper extremity weakness, Lower extremity weakness, Incontinence of bladder, Medicalcomplications, and Stairs at home Patient continues progressing toward previously set goals which remain appropriate at this time. PLAN PT Discharge Recommendations this date: PT Recommendation/Plan: Inpatient Rehab Facility Patient at high risk for: Falls, Readmission, Injury due to decreased ability to care for self, Injury due to reduced functional status, Injury due to balance deficits, Injury at home as patient has not returned to prior level of function Recommend Inpatient Rehab/Acute Rehab due to: Ability to actively participate in intensive therapy 3 hours/day, 5 days/week or 900 minutes per week, Highly motivated to participate in therapy, Not atbaseline due to impaired ability to complete ADLs, Impaired ability to complete functional mobility, Likely to return to the community at discharge with support system in place, Requires greater than25% physical assistance with most mobility tasks, Requires greater than 25% physical assistance with most ADL tasks, Requires multiple therapy disciplines to address functional deficits, Patient and caregiver require specialized skilled training due to new level of function/diagnosis, Requires skilled therapy interventions to address neurological deficits PT Frequency during current admission: Daily CARE PLAN Multi-Disciplinary Problems (from Physical Therapy) Active Problems Problem: PT Misc Start Date: 11/28/24 Goal Start Date Expected End Date End Date PT LTG - perform sup to sit with min A 11/28/24 12/15/24 -- Progressing Goal Start Date Expected End Date End Date PT LTG - perform sit to stand with min A 11/28/24 12/15/24 -- Progressing Goal Start Date Expected End Date End Date PT LTG - perform gait with wh walker 50 feet with min A 11/28/24 12/15/24 -- Progressing Goal Start Date Expected End Date End Date PT LTG -perform sitting balance with good balance dynamic x 5 min 11/28/24 12/15/24 -- Progressing Goal Start Date Expected End Date End Date PT LTG - perform bed to chair transfer with min A of 1 12/01/24 12/15/24 -- Progressing If this is the last note, please consider this the discharge summary. Cosigned by Beatriz Kimball, PT at 12/09/2024 2:29 PM CDT * Nghia Rosahenny Fuentes, MECHANIC FOREMAN - 12/09/2024 10:48 AM CDT General Medicine Daily Progress Reason for hospitalization: Fever and chills [R50.9] Interval History: 12/09 - Resting in bed ; L pectoralis pacemaker site intact ; no chest pain ; reports some constipation 12/08- status post pacemaker to left pectoralis, patient is resting in bed he has a sling denies anychest pain palpitations. He participated with physical therapy and sitting in the recliner. Son andpatient's at bedside 12/07 - patient seen and examined resting this morning NPO status for planned pacemaker placement today continues on telemetry floor Objective: Vitals: 12/08/24201112/08/24 2313 12/09/24 0319 12/09/24 0754 BP: 125/75 142/69 137/69 140/66 BP Location: Right arm Right arm Right arm Patient Position: Lying Lying Lying Pulse: 61 60 62 60 Resp: Temp: 36.6 ??C (97.9 ??F) 36.9 ??C (98.4 ??F) 36.5 ??C (97.7 ??F) 36.8 ??C (98.2 ??F) TempSrc: Oral Oral Oral SpO2: 97% 97% 97% 99% Weight: Height: I/O last 2 completed shifts: In: 222 [P.O.:222] Out: 650 [Urine:650] No intake/output data recorded. Medications: Scheduled Medications Medication Dose Route Frequency apixaban (ELIQUIS) tablet 5 mg 5 mg oral BID atorvastatin (LIPITOR) tablet 80 mg 80 mg oral QAM cetirizine (ZyrTEC) tablet 10 mg 10 mg oral QAM clopidogreL (PLAVIX) tablet 75 mg 75 mg oral Daily dilTIAZem XR (CARDIZEM CD,DILACOR XR) 24 hour capsule 240 mg 240 mg oral Daily ezetimibe (ZETIA) tablet 10 mg 10 mg oral Daily famotidine (PEPCID) tablet 20 mg 20 mg oral BID ferrous sulfate delayed release tablet 65 mg of elemental iron 65 mg of elemental iron oral BID with meals (bkfst, dinner) fluticasone propionate (FLONASE) 50 mcg/actuation nasal spray 1 spray 1 spray each nostril QAM folic acid (FOLVITE) tablet 1 mg 1 mg oral Daily lisinopriL (PRINIVIL,ZESTRIL) tablet 20 mg 20 mg oral Daily magnesium oxide (MAG-OX) tablet 400 mg 400 mg oral BID megestrol (MEGACE) 40 mg/mL oral suspension 400 mg 400 mg oral Daily potassium chloride ER (KLOR-CON) extended release tablet 20 mEq 20 mEq oral BID tamsulosin (FLOMAX) extended release capsule 0.4 mg 0.4 mg oral Daily with dinner thiamine (VITAMIN B-1) tablet 100 mg 100 mg oral Daily Physical Exam: Gen: appears in no acute distress Neuro: Alert, oriented x3 Pulmonary: diminished to ausculation; Cardiovascular: irregular rhythm. No murmurs heard. GI: abdomen soft, non-tender; positive BS Musculoskeletal: No joint swelling, tenderness or warmth. Skin: No decubitus ulcers Labs: Labs reviewed Recent Results (from the past 24 hours) CBC without differential Collection Time: 12/09/24 6:37 AM Result Value Ref Range WBC 10.56 (H) 3.80 - 9.90 K/cumm Hgb 11.1 (L) 13.0 - 17.5 g/dL Hct 34.2 (L) 38.9 - 50.3 % Plt 432 (H) 150 - 400 K/cumm MPV 9.4 9.1 - 12.3 fL RBC 3.80 (L) 4.30 - 5.80 M/cumm MCV 90.0 81.3 - 96.4 fL MCH 29.2 27.1 - 33.3 pg MCHC 32.5 32.3 - 35.7 g/dL RDW CV 14.6 11.1 - 14.9 % RDW SD 48.0 35.7 - 48.1 fL NRBC abs 0.00 0.00 - 0.01 K/cumm Basic metabolic panel Collection Time: 12/09/24 6:37 AM Result Value Ref Range Sodium 132 (L) 135 - 145 mmol/L Potassium, pl 4.2 3.3 - 4.9 mmol/L Chloride 101 97 - 110 mmol/L CO2 19 (L) 22 - 32 mmol/L Anion gap 12 2 - 15 mmol/L BUN 12 6 - 25 mg/dL Creatinine 0.71 (L) 0.80 - 1.30 mg/dL Glucose 108 70 - 199 mg/dL Calcium 9.5 8.5 - 10.3 mg/dL eGFR Collection Time: 12/09/24 6:37 AM Result Value Ref Range eGFR >90 >=60 mL/min/1.73 m2 Lab Review: I personally reviewed these images. Recent laboratory data was reviewed. Medications and allergies were reviewed. [] I confirmed that the patient's Advance Care Plan is present, code status is documented, or surrogate decision maker is listed in the patient's medical record. Imaging: Cxr FINDINGS:Compared with the study of 11/28/2024, postsurgical changes in the heart and mediastinum. Heart size upper limits of normal. Pacing leads stable. No failure fluid or infiltrates. IMPRESSION: No active disease. No failure.. Assessment & Plan: Fever weakness with possible underlying infection of unclear etiology ; patient has recent history of urinary tract infection that has been treated - Infectious disease consulted; treated with broad-spectrum antibiotics, repeat blood cultures cameback to be negative to date, cefepime was discontinued Sick sinus syndrome- Tachy lucien syndrome for Pacemaker placement 12/08 Cardio consulted CAD with CABG and stents on ASA , high intensity statin and ; metoprolol changed to diltiazem PCI Jun 2024 for complex stenosis of the RCA Chronic atrial fibrillation on apixaban , beta-alexandria discontinued and now on diltiazem Urinary retention - urology consulted and patient was presented with options including intermittentself-catheterizations /Coelho catheterization; intermittent catheterization has lower risk of urinary tract infection then indwelling Coelho - bladder scan every 6 hours ; straight cath p.r.n. for post void greater than 300 - cont Flomax HTN on lisinopril, diltiazem Normocytic anemia mild with no active bleeding Moderate Malnutrition- dietitian consult continue appetite stimulant Mild hyponatremia will trend levels for now. Hx of CVA 's - Eliquis resume after pacemaker placement per Cardiology recommends to hold Plavix 1 more day and restarted 12/09 ; continue Zetia and statin Dispo - insurance auth [facility] Rosa Agrawal, [facility] [phone] 12/09/2024 10:48 AM * Sage Tillman MD - 12/09/2024 9:14 AM CDT [facility] - Cardiology [facility] Progress Note Admit Date: 11/27/2024 9:48 AM @HDAYS@ PCP: Raquel Callejas MD Patient seen and examined Chart , telemtry reviewed Symptoms Patient denies chest pain, dyspnea, palpitations, sweating or syncope. Data Vitals: 12/08/24 2012 12/08/24 2313 12/09/24 0319 12/09/24 0754 BP: 125/75 142/69 137/69 140/66 BP Location: Right arm Right arm Right arm Patient Position: Lying Lying Lying Pulse: 61 60 62 60 Resp: 16 20 22 Temp: 36.6 ??C (97.9 ??F) 36.9 ??C (98.4 ??F) 36.5 ??C (97.7 ??F) 36.8 ??C (98.2 ??F) TempSrc: Oral Oral Oral SpO2: 97% 97% 97% 99% Weight: Height: Intake/Output Summary (Last 24 hours) at 12/09/2024 0914 Last data filed at 12/09/2024 0319 Gross per 24 hour Intake 222 ml Output 650 ml Net -428 ml Lab Results Component Value Date WBC 10.56 (H) 12/09/2024 WBC 11.69 (H) 12/07/2024 HGB 11.1 (L) 12/09/2024 HGB 11.0 (L) 12/07/2024 HCT 34.2 (L) 12/09/2024 HCT 34.4 (L) 12/07/2024 Lab Results Component Value Date SODIUM 132 (L) 12/09/2024 SODIUM 137 12/08/2024 SODIUM 138 12/07/2024 POTASSIUM 4.2 12/09/2024 POTASSIUM 4.3 12/08/2024 POTASSIUM 3.8 12/07/2024 CHLORIDE 101 12/09/2024 CHLORIDE 105 12/08/2024 CHLORIDE 106 12/07/2024 CO2 19 (L) 12/09/2024 CO2 20 (L) 12/08/2024 CO2 19 (L) 12/07/2024 CREATININE 0.71 (L) 12/09/2024 CREATININE 0.78 (L) 12/08/2024 CREATININE 0.86 12/07/2024 GLUCOSE 108 12/09/2024 GLUCOSE 95 12/08/2024 GLUCOSE 95 12/07/2024 CALCIUM 9.5 12/09/2024 CALCIUM 9.3 12/08/2024 CALCIUM 9.2 12/07/2024 No results found for: PTT No results found for: PT No results found for: INR No results found for: BNP No components found for: TROPONIN No results found for: CHOL, TRIG, HDL, LDLCALC No results found for: ALBUMIN, ALKPHOS, ALT, AST No components found for: MAGMGDL No results found for: TSH No results found for: T3FREE No results found for: I9ZABSU Pain Assessment: No/denies pain Meds MEDICATIONS FOR CURRENT ENCOUNTER: SCHEDULED MEDICATIONS: Scheduled Medications Medication Dose Route Frequency [Held by Provider] apixaban (ELIQUIS) tablet 5 mg 5 mg oral BID atorvastatin (LIPITOR) tablet 80 mg 80 mg oral QAM cetirizine (ZyrTEC) tablet 10 mg 10 mg oral QAM [Held by Provider] clopidogreL (PLAVIX) tablet 75 mg 75 mg oral Daily dilTIAZem XR (CARDIZEM CD,DILACOR XR) 24 hour capsule 240 mg 240 mg oral Daily ezetimibe (ZETIA) tablet 10 mg 10 mg oral Daily famotidine (PEPCID) tablet 20 mg 20 mg oral BID ferrous sulfate delayed release tablet 65 mg of elemental iron 65 mg of elemental iron oral BID with meals (bkfst, dinner) fluticasone propionate (FLONASE) 50 mcg/actuation nasal spray 1 spray 1 spray each nostril QAM folic acid (FOLVITE) tablet 1 mg 1 mg oral Daily lisinopriL (PRINIVIL,ZESTRIL) tablet 20 mg 20 mg oral Daily magnesium oxide (MAG-OX) tablet 400 mg 400 mg oral BID megestrol (MEGACE) 40 mg/mL oral suspension 400 mg 400 mg oral Daily potassium chloride ER (KLOR-CON) extended release tablet 20 mEq 20 mEq oral BID tamsulosin (FLOMAX) extended release capsule 0.4 mg 0.4 mg oral Daily with dinner thiamine (VITAMIN B-1) tablet 100 mg 100 mg oral Daily CONTINUOUS MEDICATIONS: Continuous Medications Medication Dose Last Rate PRN MEDICATIONS: PRN Medications Medication Dose Route Frequency Last Admin acetaminophen (TYLENOL) tablet 650 mg 650 mg oral Q6H PRN 650 mg at 12/08/24 182 artificial tears (mgpatxd-frsarowbtiwi-knvmhpxk) (GENTEAL TEARS MODERATE) 0.1-0.3-0.2 % ophthalmic solution 1 drop 1 drop each eye QID PRN 1 drop at 12/07/24 0827 calcium carbonate (TUMS) chewable tablet 1,000 mg 400 mg of elemental calcium oral Q4H PRN 1,000 mgat 12/08/24 182 docusate sodium (COLACE) capsule 100 mg 100 mg oral BID PRN 100 mg at 12/08/24 182 hydrOXYzine (ATARAX) tablet 25 mg 25 mg oral Q4H PRN 25 mg at 12/07/24 225 ondansetron (ZOFRAN) injection 4 mg 4 mg intravenous Q4H PRN 4 mg at 11/30/242031 oxyCODONE-acetaminophen (PERCOCET) 5-325 mg per tablet 1 tablet 1 tablet oral Q4H PRN ramelteon (ROZEREM) tablet 8 mg 8 mg oral Nightly PRN 8 mg at 12/04/24 2153 sodium chloride 0.9% flush 10 mL 10 mL intravenous PRN 10 mL at 11/29/24 1308 Allergies Allergen Reactions Meperidine Vomiting, Other (See comments) and Nausea & Vomiting Review of Systems: All systems were reviewed. Pertinent positives are mentioned above. Exam General appearance: alert, cooperative, no distress Neck: No JVD. No carotid Bruit Chest: Adequate air entry bilaterally,No added sounds Cardiovascular: regular rate, rhythm, normal S1 and S2, without rub, gallops PSM Abdomen: soft without mass, non-tender, with normal bowel sounds Extremities: no clubbing, cyanosis or edema. 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 Incision looks okay. Pacemakercheck is normal. Chest x-ray within normal limits. Underlying rhythm is atrial flutter. Small hematoma at pacemaker site. Will hold Eliquis today. Pressure dressing being applied - Dyslipidemia -On atorvastatin and Zetia LDL cholesterol is acceptable Hx of CVA -continue statin/Plavix Confusion hospitalists are managing Sage Tillman MD * Rosa Agrawal NP - 12/08/2024 2:17 PM CDT General Medicine Daily Progress Reason for hospitalization: Fever and chills [R50.9] Interval History: 12/08- status post pacemaker to left pectoralis, patient is resting in bed he has a sling denies anychest pain palpitations. He participated with physical therapy and sitting in the recliner. Son andpatient's at bedside 12/07 - patient seen and examined resting this morning NPO status for planned pacemaker placement today continues on telemetry floor Objective: Vitals: 12/07/24 2330 12/08/24 0437 12/08/24 0920 12/08/24 1201 BP: 136/69 142/68 151/74 132/69 BP Location: Right arm Right arm Right arm Patient Position: Lying Lying Sitting Pulse: 59 63 59 50 Resp: 16 20 Temp: 36.5 ??C (97.7 ??F) 36.9 ??C (98.4 ??F) 36.7 ??C (98.1 ??F) TempSrc: Oral Oral Oral SpO2: 95% 96% 99% Weight: Height: I/O last 2 completed shifts: In: - Out: 1178 [Urine:1178] I/O this shift: In: - Out: 550 [Urine:550] Medications: Scheduled Medications Medication Dose Route Frequency apixaban (ELIQUIS) tablet 5 mg 5 mg oral BID atorvastatin (LIPITOR) tablet 80 mg 80 mg oral QAM cetirizine (ZyrTEC) tablet 10 mg 10 mg oral QAM [Held by Provider] clopidogreL (PLAVIX) tablet 75 mg 75 mg oral Daily dilTIAZem XR (CARDIZEM CD,DILACOR XR) 24 hour capsule 240 mg 240 mg oral Daily ezetimibe (ZETIA) tablet 10 mg 10 mg oral Daily famotidine (PEPCID) tablet 20 mg 20 mg oral BID ferrous sulfate delayed release tablet 65 mg of elemental iron 65 mg of elemental iron oral BID with meals (bkfst, dinner) fluticasone propionate (FLONASE) 50 mcg/actuation nasal spray 1 spray 1 spray each nostril QAM folic acid (FOLVITE) tablet 1 mg 1 mg oral Daily lisinopriL (PRINIVIL,ZESTRIL) tablet 20 mg 20 mg oral Daily magnesium oxide (MAG-OX) tablet 400 mg 400 mg oral BID megestrol (MEGACE) 40 mg/mL oral suspension 400 mg 400 mg oral Daily potassium chloride ER (KLOR-CON) extended release tablet 20 mEq 20 mEq oral BID tamsulosin (FLOMAX) extended release capsule 0.4 mg 0.4 mg oral Daily with dinner thiamine (VITAMIN B-1) tablet 100 mg 100 mg oral Daily Physical Exam: Gen: appears in no acute distress Neuro: Alert, oriented x3 Pulmonary: diminished to ausculation; Cardiovascular: irregular rhythm. No murmurs heard. GI: abdomen soft, non-tender; positive BS Musculoskeletal: No joint swelling, tenderness or warmth. Skin: No decubitus ulcers Labs: Labs reviewed Recent Results (from the past 24 hours) Basic metabolic panel Collection Time: 12/08/24 6:02 AM Result Value Ref Range Sodium 137 135 - 145 mmol/L Potassium, pl 4.3 3.3 - 4.9 mmol/L Chloride 105 97 - 110 mmol/L CO2 20 (L) 22 - 32 mmol/L Anion gap 12 2 - 15 mmol/L BUN 14 6 - 25 mg/dL Creatinine 0.78 (L) 0.80 - 1.30 mg/dL Glucose 95 70 - 199 mg/dL Calcium 9.3 8.5 - 10.3 mg/dL eGFR Collection Time: 12/08/24 6:02 AM Result Value Ref Range eGFR >90 >=60 mL/min/1.73 m2 Lab Review: I personally reviewed these images. Recent laboratory data was reviewed. Medications and allergies were reviewed. [] I confirmed that the patient's Advance Care Plan is present, code status is documented, or surrogate decision maker is listed in the patient's medical record. Imaging: Cxr FINDINGS:Compared with the study of 11/28/2024, postsurgical changes in the heart and mediastinum. Heart size upper limits of normal. Pacing leads stable. No failure fluid or infiltrates. IMPRESSION: No active disease. No failure.. Assessment & Plan: Fever weakness with possible underlying infection of unclear etiology ; patient has recent history of urinary tract infection that has been treated - Infectious disease consulted; treated with broad-spectrum antibiotics, repeat blood cultures cameback to be negative to date, cefepime was discontinued Sick sinus syndrome- Tachy lucien syndrome for Pacemaker placement 12/08 Cardio consulted CAD with CABG and stents on ASA , high intensity statin and metoprolol xl. PCI Jun 2024 for complex stenosis of the RCA Chronic atrial fibrillation on apixaban , beta-alexandria discontinued and now on diltiazem Urinary retention - urology consulted and patient was presented with options including intermittentself-catheterizations /Coelho catheterization; intermittent catheterization has lower risk of urinary tract infection then indwelling Coelho - bladder scan every 6 hours ; straight cath p.r.n. for post void greater than 300 - cont F;omax HTN on lisinopril, metoprolol. Normocytic anemia mild with no active bleeding Moderate Malnutrition- dietitian consult continue appetite stimulant Mild hyponatremia will trend levels for now. Hx of CVA 's - Eliquis resume after pacemaker placement per Cardiology recommends to hold Plavix 1 more day and restart in a.m.; continue Zetia and statin Rosa Agrawal, ANP Team [facility] [phone] 12/08/2024 2:17 PM * Dyana Pretty, RD - 12/08/2024 1:08 PM CDT NUTRITION ASSESSMENT Nutrition Status: Patient meets criteria for moderate acute malnutrition, reference AAIM (ASPEN) guidelines. Present on Admission: Yes REASON FOR ASSESSMENT: Follow Up Encounter Date: 12/08/24 2:40 PM Admission Date: 11/27/2024 LOS: 11 days HPI: Patient is a 74 y.o. male with past medical history of CVA on 10/23, CAD s/p CABG, atrial fibrillation, urinary retention, hyperlipidemia, diplopia and hypertension who presented as a direct admit from [facility] after being noted with fevers overnight, elevated WBCs up to 33, incontinence of urine and fatigue. Of note, patient was recently admitted here at [facility] on 11/15 and transferred to rehab on 11/18 after being treated for possible UTI with cefdinir until 11/24. Currently patient reports ongoing fatigue and generalized weakness. He denies any other associated symptoms. Denies chest pain, SOB, abdominal pain, constipation, diarrhea, dysuria, chills or fever. Initial workup showed urinalysis being negative after recently being treated with cefdnir. CT chestabdomen pelvis possible underlying cystitis, incidental cecal thickening. High attenuation of the renal. Metastasis that may represent medullary nephrocalcinosis or underlying dehydration state. CMR Nutrition Interval (10/29-11/15): 10/29: Continue regular diet. Offered modified texture diet but patient denied. May need help with meal ordering and cutting up and opening food items. Placed a note for the diet office. Obtained menu for patient. 11/03: Finger food preference added 11/10: Continue regular diet. IP Interval (11/15-11/18): 11/15: Continue current diet. Start ensure high protein chocolate bid. HH education not appropriate at this time. Lipids WDL CMR Nutrition Interval (11/18-12/01: 11/19: Continue regular diet. Modified ONS from Ensure High PRO to Gelatein Plus bid for trial. Pt interested In Thrive. Will order once available. 11/23: Continue regular diet with Gelatein Plus bid and Thrive daily. IP Interval (12/01- present) 12/01/24: continue current diet. Resume Gelatein Plus BID and Thrive daily. Pt may benefit from NFPE 12/05: Malnutrition assessment complete. Recommend advancing diet to regular as medically appropriate. Discontinue Thrive and Gelatein Plus per pt request. Encouraged pt to have visitors bring in food/snacks to increase po intakes. Recommend considerations for appetite stimulant as medically appropriate. 12/08: Continue regular diet. Pacemaker inserted 12/07. Pt awaiting SNF placement. Start ramiro bid Objective Past Medical History: Diagnosis Date Dizziness Hyperlipidemia Hypertension Loss of balance Nocturia Visual disturbance Past Surgical History: Procedure Laterality Date ANKLE SURGERY CARDIAC ELECTROPHYSIOLOGY PROCEDURE N/A 12/07/2024 Procedure: IMPLANT DUAL CHAMBER PPM SYSTEM W/ DUAL ELECTRODES (GEN AND LEADS, NEW OR REPLACE) [id number]; Surgeon: Sage Tillman MD; Location: [facility]; Service: Cardiovascular; Laterality: N/A; CORONARY ARTERY BYPASS GRAFT 2004 x4 on Plavix HEART SURGERY LASIK ORAL SURGERY Social History Tobacco Use Smoking status: Former Current packs/day: 0.00 Types: Cigarettes Quit date: 2000 Years since quittin.5 Smokeless tobacco: Never Substance and Sexual Activity Drug use: Yes Types: Alcohol Sexual activity: Not Currently Partners: Female Alcohol Use: Alcohol Misuse (11/18/2024) AUDIT-C Frequency of Alcohol Consumption: 4 or more times a week Average Number of Drinks: 3 or 4 Frequency of Binge Drinking: Never MEDICATION/LAB REVIEW: Scheduled Meds: apixaban, 5 mg, oral, BID atorvastatin, 80 mg, oral, QAM cetirizine, 10 mg, oral, QAM [Held by Provider] clopidogreL, 75 mg, oral, Daily dilTIAZem CD/XR/XT, 240 mg, oral, Daily ezetimibe, 10 mg, oral, Daily famotidine, 20 mg, oral, BID ferrous sulfate, 65 mg of elemental iron, oral, BID with meals (bkfst, dinner) fluticasone propionate, 1 spray, each nostril, QAM folic acid, 1 mg, oral, Daily lisinopriL, 20 mg, oral, Daily magnesium oxide, 400 mg, oral, BID megestrol, 400 mg, oral, Daily potassium chloride ER, 20 mEq, oral, BID tamsulosin, 0.4 mg, oral, Daily with dinner thiamine, 100 mg, oral, Daily Continuous Infusions: PRN Meds: acetaminophen lubricant docusate sodium hydrOXYzine ondansetron oxyCODONE-acetaminophen ramelteon sodium chloride 0.9% Recent Labs Lab Units 12/08/24 0602 12/07/24 0330 12/06/24 1517 SODIUM mmol/L 137 < > -- POTASSIUM PLASMA mmol/L 4.3 < > -- CHLORIDE mmol/L 105 < > -- CO2 mmol/L 20* < > -- BUN SERUM mg/dL 14 < > -- CREATININE mg/dL 0.78* < > -- MLO-TCE-XMNOSUD mL/min/1.73 m2 >90 < > -- CALCIUM mg/dL 9.3 < > -- PHOSPHORUS PLASMA mg/dL -- -- 3.7 MAGNESIUM mg/dL -- -- 1.9 < > = values in this interval not displayed. Recent Labs Lab Units 12/08/24 0602 12/07/24 0330 12/06/24 0504 12/05/24 0541 12/04/24 0647 12/03/24 0623 12/02/24 0650 GLUCOSE mg/dL 95 95 104 114 120 103 99 No results found for: ALT, AST, BILIRUBIN, ALKPHOS, LIPASE Lab Results Component Value Date HGBA1C 6.1 (H) 10/26/2024 HDL 62 10/26/2024 LDLCALC 58 10/26/2024 CHOL 135 10/26/2024 TRIG 77 10/26/2024 NURSING ASSESSMENT: Last BM Date: 12/06/24 Bowel Sounds (All Quadrants): Active Rajan Scale Score: 18 Skin Integrity: Surgical incision Edema: No pitting Vital Signs BP: 132/69 Temp: 36.7 ??C (98.1 ??F) Pulse: 50 Resp: 20 SpO2: 99 % Intake/Output Summary (Last 24 hours) at 12/08/2024 1440 Last data filed at 12/08/2024 1438 Gross per 24 hour Intake 222 ml Output 1319 ml Net -1097 ml Adult Malnutrition Scoring Tool (MST) What diet do you follow at home?: Regular Have You Recently Lost Weight Without Trying?: No Have you been eating poorly because of a decreased appetite?: No Malnutrition Screening Tool (MST) Score: 0 Within the past 12 months, you worried that your food would run out before you got the money to buymore.: Never true Within the past 12 months, the food you bought just didn't last and you didn't have money to get more.: Never true Anthropometrics Weight: 71.6 kg (157 lb 13.6 oz) Admission Weight : 71.6 kg Weight Change: 0.03 kg (0.08 lbs) IBW/kg (Calculated) : 67.1 kg Height: 170.2 cm (5' 7) Weight in (lb) to have BMI = 25: 159.3 BMI (Calculated): 24.7 BMI Classification: BMI 18.5 - 24.9 Normal Weight Wt Readings from Last 10 Encounters: 12/01/24 71.6 kg (157 lb 13.6 oz) 11/26/24 71 kg (156 lb 8.4 oz) 11/17/24 81.6 kg (179 lb 14.3 oz) 11/15/24 82.1 kg (181 lb) 11/13/24 82.5 kg (181 lb 14.1 oz) 10/28/24 77.1 kg (169 lb 15.6 oz) 08/31/24 77.1 kg (170 lb) 06/28/24 77.1 kg (170 lb) 04/19/24 77.1 kg (170 lb) 02/19/24 77.1 kg (170 lb) ESTIMATED NEEDS: Total Energy Needs: 1833 kcal Total Energy Needs + Fever Factor: 1833 Equation Chosen to Use by RD:Jose Luis Estevez Activity Factor: 1.3 Weight Used for Equation Calculations (RD Determined): 71.6 kg(157 lb 13.6 oz) Total Kcal/kg Estimated Needs : 2148 Kcal/k. Type of Weight Used for Estimated Kcals: Current Total Protein Estimated Needs (gm): 85.92 Protein Needs Based on g/k.2 Type of Weight Used for Estimated Protein : Current Total Fluid Estimated Needs: 1790 Fluid Needs Based on : 25 ml/kg Type of Weight Used for EstimatedFluid Needs: Current Dietary Orders (From admission, onward) Start Ordered 12/08/24 0952 Adult Diet Regular Diet effective now Question: (CH) Diet type Answer: Regular 12/08/24 0923 Allergies: Reviewed. Pt does not have any cultural or hindu food and diet preferences. IMPRESSION: F/U Pt reports a good appetite. Pt was NPO for pacemaker insertion. PO intake 75% x5, 100% x1, 25 x1 inlast 3 days. Pt reports he is nausea but does not vomit, denies D/C, chewing or swallowing issues. Pt is on zofran. Start ramiro bid to aid in healing incision from surgery. Labs and medications reviewed: Cr (L), - pepcid, folic acid, mag ox, BI, flomax, remeron, zofran, colace Skin: incision on sternum Last BM 12/05 AAIM (ASPEN) MALNUTRITION ASSESSMENT: Date of completion: 12/08 ASPEN/AND Malnutrition Screening: Acute illness or injury mild/moderate Energy Intake: < 75% energy intake compared to estimated energy needs > 7 days Subcutaneous Fat Loss Severity: Mild/Moderate Muscle Mass Loss Severity: Mild/Moderate Patient Meets Criteria for Moderate Malnutrition: Yes NUTRITION FOCUSED PHYSICAL EXAM: Completed, physical findings below. Subcutaneous Fat Loss Orbital Region - Surrounding the Eye: Loose skin Cheek Region - Buccal Fat: Somewhat sunken appearance Muscle Loss [place] Region - Temporalis Muscle: Can see/feel well-defined muscle Clavicle Bone Region - Pectoralis Major, Deltoid, Trapezius Muscles: Not visible in male, visible but not prominent in female Clavicle and Acromion Bone Region - Deltoid Muscle: Rounded, curves at arm/shoulder/neck Scapular Bone Region - Trapezius, Supraspinus, Infraspinus Muscles: Patient not able to participate Dorsal Hand - Interosseous Muscle: Slightly depressed Anterior Thigh and Patellar Region - Quadricep Muscle: Decrease in muscle tone/resistance Posterior Calf Region - Gastrocnemius Muscle: Well-developed bulb of muscle NUTRITION DIAGNOSIS: Nutrition Diagnosis 1: Protein-Calorie Malnutrition - Moderate Related to: Acute illness/injury Evidenced by: Inadequate energy intake, Muscle loss, Subcutaneous fat loss INTERVENTION(S): Summary: Assess for nutrition changes, Communication, Follow up per policy, Medical food supplement Start ramiro bid GOAL(S): Adequate nutrition to meet estimated needs by next assessment, Oral intake to meet 75% estimated nutritional needs by next assessment, Tolerance of medical food supplement by next assessment MONITORING/EVALUATION: Appetite, Discharge plans, Blood glucoses, Plan of care, Stool patterns, PO intake, Labs, Diet-related questions, Supplement tolerance Diet Instructions Continue to follow a heart healthy diet that is low in sodium, trans fat and saturated fat. Read the nutrition facts label on packages. Aim to eat less than 2,000mg sodium per day (about 500-700 mg per meal). Do not add salt to foods and avoid foods that are high sources of sodium, such as fast foods, fried/breaded foods, canned goods, deli meats and gravies/sauces. Increase your intake of foods high in fiber, such as whole grains, fruits and vegetables. For questions, can call [facility] Dietitian's Office at [phone]. Additional resources available online from the [place] [employer] at [email or web address]/en/healthy-living/[email or web address] Dyana Pretty MS RD LD [phone] * Bismark Clancy COTA - 12/08/2024 10:05 AM CDT Occupational Therapy NOTE / SESSION TYPE: DAILY PROGRESS / TREATMENT Patient's Name: Ayad Shipman Age / Sex: 74 y.o. / male [id number] 1950 Date of service: 12/08/24 TIME IN: 1005 TIME OUT: 1059 Patient Active Problem List Diagnosis Chronic rhinitis Coronary atherosclerosis Essential hypertension Hyperlipidemia Nocturia Wax in ear Diplopia Dizziness and giddiness Rotator cuff arthropathy of right shoulder Anemia Glenohumeral arthritis, right Paresthesia History of stroke Intracranial vascular stenosis Acute CVA (cerebrovascular accident) (HCC) Altered mental status CVA (cerebrovascular accident due to intracerebral hemorrhage) (HCC) Episode of unresponsiveness Sepsis (HCC) Fever and chills Moderate protein-calorie malnutrition Past Medical History: Diagnosis Date Dizziness Hyperlipidemia Hypertension Loss of balance Nocturia Visual disturbance Past Surgical History: Procedure Laterality Date ANKLE SURGERY CARDIAC ELECTROPHYSIOLOGY PROCEDURE N/A 12/07/2024 Procedure: IMPLANT DUAL CHAMBER PPM SYSTEM W/ DUAL ELECTRODES (GEN AND LEADS, NEW OR REPLACE) [id number]; Surgeon: Sage Tillman MD; Location: [facility]; Service: Cardiovascular; Laterality: N/A; CORONARY ARTERY BYPASS GRAFT 2005 x4 on Plavix HEART SURGERY LASIK ORAL SURGERY Precautions (including weight-bearing): Fall risk, Bed / chair alarm, and Pacemaker precautions Subjective: Patient stated Today is a big day Therapy Pain: Pre-therapy pain level: 0 /10 Pain location: No pain - Location N/A Pain Intervention(s): No pain - Intervention N/A Post-therapy pain level: 0 /10 Pain scale reference: 0-10 SCALE Objective: Appearance: Presentation upon OT arrival: Patient Supine with head of bed elevated Presentation upon OT departure: Patient Sitting in bedside recliner Bed / Chair alarm in place and activated upon OT departure: Yes Call light within arms reach of patient at end of session: Yes Completed patient handoff and notified PATENT CLERK / RN, name: Ceci, of patient's location and functional status upon completion of session Cognitive / Perceptual: WFL Mobility / Transfers: Bed Mobility: Supine>EOB MOD A for trunk and BLE management Transfer(s): EOB sit>stand using w/w MOD A EOB>recliner pivot using w/w MOD of one and MIN A of another therapist Recliner<>functional mobility using w/w MAX A with close chair follow due to posterior lean and safety concerns Living Skills / Other Activities: UE dressing: Patient completed upper body dressing of Hospital gown while Sitting in bedside chair / recliner with overall Moderate assistance. Patient required assistance for threading RUE, threading LUE, verbalcue(s), and increased time to complete. Footwear: Patient completed footwear of Footie(s) while Sitting in bedside chair / recliner with overall Maximal assistance. Patient required assistance for donning / doffing right sock / footie, donning / doffing left sock / footie, verbal cue(s), increased time to complete, and safety Grooming: Patient completed grooming of shaving while Sitting in bedside chair / recliner with overall Maximal assistance. Patient required assistance for shaving, verbal cue(s), increased time to complete, and item retrieval Caregiver Present: Yes: family Education & Training Provided: Role of OT, OT plan of care, ADL training, Bed mobility training, Functional transfer training, and Safety education Assessment: Activity tolerance / response to OT session: GOOD PARTICIPATION, GOOD MOTIVATION, and RECEPTIVE TO EDUCATION / TRAINING Progress towards goals: Please refer to care plan from this date for progress towards individual goals Plan: Therapy Plan: Rehab Potential (Prognosis): good OT Recommendations This Date: OT RECOMMENDATIONS: OT Recommendation: Inpatient Rehab Facility Flow sheet updated and OT Consultation in Regards to Change in Discharge Recommendations: YES /NO: No Additional recommendation comments: Recommend Inpatient Rehab/Acute Rehab due to: Ability to actively participate in intensive therapy 3 hours/day, 5 days/week or 900 minutes per week, Highly motivated to participate in therapy, Not at baseline due to impaired ability to complete ADLs, Impaired ability to complete functional mobility, Likely to return to the community at discharge with support system in place, Requires greater than 25% physical assistance with most mobility tasks, Requires greater than 25% physical assistance with most ADL tasks, Requires multiple therapy disciplines to address functional deficits Frequency of therapy:OT Frequency during current admission: 3-5x/wk If this is the last note, consider this the discharge summary INA Johnson 12/08/24 Cosigned by Delia Huang OT at 12/09/2024 4:04 PM CDT * Minerva Darby, GEOSCIENCE PROFESSOR - 12/08/2024 10:03 AM CDT Physical Therapy PT PROGRESS NOTE PATIENT'S NAME:Ayad Shipman :1950 AGE:74 y.o. ROOM:[place] [address] Past Medical History: Diagnosis Date Dizziness Hyperlipidemia Hypertension Loss of balance Nocturia Visual disturbance Past Surgical History: Procedure Laterality Date ANKLE SURGERY CARDIAC ELECTROPHYSIOLOGY PROCEDURE N/A 12/07/2024 Procedure: IMPLANT DUAL CHAMBER PPM SYSTEM W/ DUAL ELECTRODES (GEN AND LEADS, NEW OR REPLACE) 11991; Surgeon: Sage Tillman MD; Location: [facility]; Service: Cardiovascular; Laterality: N/A; CORONARY ARTERY BYPASS GRAFT 2005 x4 on Plavix HEART SURGERY LASIK ORAL SURGERY Patient Active Problem List Diagnosis Chronic rhinitis Coronary atherosclerosis Essential hypertension Hyperlipidemia Nocturia Wax in ear Diplopia Dizziness and giddiness Rotator cuff arthropathy of right shoulder Anemia Glenohumeral arthritis, right Paresthesia History of stroke Intracranial vascular stenosis Acute CVA (cerebrovascular accident) ([facility]) Altered mental status CVA (cerebrovascular accident due to intracerebral hemorrhage) ([facility]) Episode of unresponsiveness Sepsis ([facility]) Fever and chills Moderate protein-calorie malnutrition TIME IN: 1000 TIME OUT: 1040 SUBJECTIVE Patient agreeable to therapy MENTAL STATUS/ORIENTATION: alert and cooperative PAIN: Pre-therapy pain level: 0/10 Pain location: ribs Pain intervention: therapy to todd Post-therapy pain level/response to intervention: 2-3/10 OBJECTIVE PRECAUTIONS: fall, bed / chair alarm, and cardiac APPEARANCE/POSTURE: supine in bed pacemaker in place left ue in sling for PPM on room air family inroom at bed side soft touch call light next to patient VITAL SIGNS: Resting BP: 136/75 supine, 144/80 EOB Post-activity BP: 133/77 post amb Resting heart rate: 62 Post-activity heart rate: 102 post amb, 67 at end of tx session Resting O2 sat: 98% Post-activity O2 sat: 99% MOBILITY DOCUMENTATION: Bed Mobility/Transfers: supine to sit mod assist, sit to/from stand mod assist, bed to bed side recliner mod of 1 min of 1 stand pivot with w/w Gait: amb 6' w/w max assist due to patient leaning posteriorly, decreased in consistent step lengthleft > right le with a chair follow for safety TREATMENT: Sat EOB fair+ sitting balance- stacia LAQ x 5 reps APPEARANCE/POSTURE (end of session): sitting in bed side chair alarm on and in place, soft touch call light next to patient HANDOFF: Verbal handoff given to nurse Ceci. ALARMS: Chair alarm in place / active EDUCATION:bed mobility , therapeutic exercises , functional transfer training, gait training , strengthening, safety , positioning, and post-op precautions RESPONSE TO EDUCATION: demonstrated understanding and needs reinforcement ASSESSMENT Activity tolerance/response to P.T.: patient todd tx session with minimal c/o dizziness with amb 6' w/w max assist Barriers to learning: Sensory and Physical Barriers to discharge: Limited safety awareness, Decreased endurance, Decreased proprioception, Upper extremity weakness, Lower extremity weakness, Incontinence of bladder, Medical complications, andStairs at home Patient continues progressing toward previously set goals which remain appropriate at this time. PLAN PT Discharge Recommendations this date: PT Recommendation/Plan: Inpatient Rehab Facility Patient at high risk for: Falls, Readmission, Injury due to decreased ability to care for self, Injury due to reduced functional status, Injury due to balance deficits, Injury at home as patient has not returned to prior level of function Recommend Inpatient Rehab/Acute Rehab due to: Ability to actively participate in intensive therapy 3 hours/day, 5 days/week or 900 minutes per week, Highly motivated to participate in therapy, Not atbaseline due to impaired ability to complete ADLs, Impaired ability to complete functional mobility, Likely to return to the community at discharge with support system in place, Requires greater than25% physical assistance with most mobility tasks, Requires greater than 25% physical assistance with most ADL tasks, Requires multiple therapy disciplines to address functional deficits, Patient and caregiver require specialized skilled training due to new level of function/diagnosis, Requires skilled therapy interventions to address neurological deficits PT Frequency during current admission: Daily CARE PLAN Multi-Disciplinary Problems (from Physical Therapy) Active Problems Problem: PT Misc Start Date: 11/28/24 Goal Start Date Expected End Date End Date PT LTG - perform sup to sit with min A 11/28/24 12/05/24 -- Progressing Goal Start Date Expected End Date End Date PT LTG - perform sit to stand with min A 11/28/24 12/05/24 -- Progressing Goal Start Date Expected End Date End Date PT LTG - perform gait with wh walker 50 feet with min A 11/28/24 12/05/24 -- Progressing Goal Start Date Expected End Date End Date PT LTG -perform sitting balance with good balance dynamic x 5 min 11/28/24 12/05/24 -- Progressing Goal Start Date Expected End Date End Date PT LTG - perform bed to chair transfer with min A of 1 12/01/24 12/08/24 -- Progressing If this is the last note, please consider this the discharge summary. Cosigned by Spike French PT at 12/08/2024 4:16 PM CDT * Sage Tillman MD - 12/08/2024 9:50 AM CDT [facility] - Cardiology [facility] Progress Note Admit Date: 11/27/2024 9:48 AM @HDAYS@ PCP: Raquel Callejas MD Patient seen and examined Chart , telemtry reviewed Symptoms Patient denies chest pain, dyspnea, palpitations, sweating or syncope. Data Vitals: 12/07/24 1958 12/07/24 2330 12/08/24 0437 12/08/24 0920 BP: 123/66 136/69 142/68 151/74 BP Location: Right arm Right arm Right arm Patient Position: Lying Lying Lying Pulse: 60 59 63 59 Resp: 20 16 20 Temp: 36.9 ??C (98.4 ??F) 36.5 ??C (97.7 ??F) 36.9 ??C (98.4 ??F) TempSrc: Oral Oral Oral SpO2: 96% 95% 96% Weight: Height: Intake/Output Summary (Last 24 hours) at 12/08/2024 0950 Last data filed at 12/08/2024 0545 Gross per 24 hour Intake -- Output 769 ml Net -769 ml Lab Results Component Value Date WBC 11.69 (H) 12/07/2024 WBC 8.24 12/06/2024 HGB 11.0 (L) 12/07/2024 HGB 11.0 (L) 12/06/2024 HCT 34.4 (L) 12/07/2024 HCT 33.6 (L) 12/06/2024 Lab Results Component Value Date SODIUM 137 12/08/2024 SODIUM 138 12/07/2024 SODIUM 138 12/06/2024 POTASSIUM 4.3 12/08/2024 POTASSIUM 3.8 12/07/2024 POTASSIUM 3.3 12/06/2024 CHLORIDE 105 12/08/2024 CHLORIDE 106 12/07/2024 CHLORIDE 104 12/06/2024 CO2 20 (L) 12/08/2024 CO2 19 (L) 12/07/2024 CO2 21 (L) 12/06/2024 CREATININE 0.78 (L) 12/08/2024 CREATININE 0.86 12/07/2024 CREATININE 0.87 12/06/2024 GLUCOSE 95 12/08/2024 GLUCOSE 95 12/07/2024 GLUCOSE 104 12/06/2024 CALCIUM 9.3 12/08/2024 CALCIUM 9.2 12/07/2024 CALCIUM 9.4 12/06/2024 No results found for: PTT No results found for: PT No results found for: INR No results found for: BNP No components found for: TROPONIN No results found for: CHOL, TRIG, HDL, LDLCALC No results found for: ALBUMIN, ALKPHOS, ALT, AST No components found for: MAGMGDL No results found for: TSH No results found for: T3FREE No results found for: [id number] Pain Assessment: Sleeping Clinical Progression: Gradually improving Response to Interventions: Full pain relief Meds MEDICATIONS FOR CURRENT ENCOUNTER: SCHEDULED MEDICATIONS: Scheduled Medications Medication Dose Route Frequency [Held by Provider] apixaban (ELIQUIS) tablet 5 mg 5 mg oral BID atorvastatin (LIPITOR) tablet 80 mg 80 mg oral QAM cetirizine (ZyrTEC) tablet 10 mg 10 mg oral QAM [Held by Provider] clopidogreL (PLAVIX) tablet 75 mg 75 mg oral Daily ezetimibe (ZETIA) tablet 10 mg 10 mg oral Daily famotidine (PEPCID) tablet 20 mg 20 mg oral BID ferrous sulfate delayed release tablet 65 mg of elemental iron 65 mg of elemental iron oral BID with meals (bkfst, dinner) fluticasone propionate (FLONASE) 50 mcg/actuation nasal spray 1 spray 1 spray each nostril QAM folic acid (FOLVITE) tablet 1 mg 1 mg oral Daily lisinopriL (PRINIVIL,ZESTRIL) tablet 20 mg 20 mg oral Daily magnesium oxide (MAG-OX) tablet 400 mg 400 mg oral BID megestrol (MEGACE) 40 mg/mL oral suspension 400 mg 400 mg oral Daily metoprolol tartrate (LOPRESSOR) immediate release tablet 25 mg 25 mg oral BID potassium chloride ER (KLOR-CON) extended release tablet 20 mEq 20 mEq oral BID tamsulosin (FLOMAX) extended release capsule 0.4 mg 0.4 mg oral Daily with dinner thiamine (VITAMIN B-1) tablet 100 mg 100 mg oral Daily CONTINUOUS MEDICATIONS: Continuous Medications Medication Dose Last Rate PRN MEDICATIONS: PRN Medications Medication Dose Route Frequency Last Admin acetaminophen (TYLENOL) tablet 650 mg 650 mg oral Q6H PRN 650 mg at 12/08/24 0559 artificial tears (fugoybj-kufizrxowpma-fopgzdzi) (GENTEAL TEARS MODERATE) 0.1-0.3-0.2 % ophthalmic solution 1 drop 1 drop each eye QID PRN 1 drop at 12/07/24 0827 docusate sodium (COLACE) capsule 100 mg 100 mg oral BID PRN 100 mg at 12/03/24 210 hydrOXYzine (ATARAX) tablet 25 mg 25 mg oral Q4H PRN 25 mg at 12/07/24 2254 ondansetron (ZOFRAN) injection 4 mg 4 mg intravenous Q4H PRN 4 mg at 11/30/24 203 oxyCODONE-acetaminophen (PERCOCET) 5-325 mg per tablet 1 tablet 1 tablet oral Q4H PRN ramelteon (ROZEREM) tablet 8 mg 8 mg oral Nightly PRN 8 mg at 12/04/24 2153 sodium chloride 0.9% flush 10 mL 10 mL intravenous PRN 10 mL at 11/29/24 1308 Allergies Allergen Reactions Meperidine Vomiting, Other (See comments) and Nausea & Vomiting Review of Systems: All systems were reviewed. Pertinent positives are mentioned above. Exam General appearance: alert, cooperative, no distress Neck: No JVD. No carotid Bruit Chest: Adequate air entry bilaterally,few basal crepts Cardiovascular: regular rate, rhythm, normal S1 and S2, without rub, gallops PSM 2/6 Abdomen: soft without mass, non-tender, with normal bowel sounds Extremities: no clubbing, cyanosis or edema. 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 Incision looks okay. Pacemakercheck is normal. Chest x-ray within normal limits. Underlying rhythm is atrial flutter. Will start Eliquis and Cardizem. Metoprolol.- - Dyslipidemia -On atorvastatin and Zetia LDL cholesterol is acceptable Hx of CVA -continue statin/Plavix Confusion hospitalists are managing Sage Tillman MD * Rosa Agrawal NP - 12/07/2024 2:26 PM CDT General Medicine Daily Progress Reason for hospitalization: Fever and chills [R50.9] Interval History: 12/07 - patient seen and examined resting this morning NPO status for planned pacemaker placement today continues on telemetry floor Objective: Vitals: 12/07/24 0410 12/07/24 0724 12/07/24 0825 12/07/24 1232 BP: 129/66 134/66 95/57 BP Location: Right arm Right arm Right arm Patient Position: HOB 30 degrees Lying HOB 30 degrees Pulse: 57 67 72 60 Resp: 18 18 18 Temp: 37 ??C (98.6 ??F) 36.7 ??C (98.1 ??F) 36.7 ??C (98.1 ??F) TempSrc: Oral Oral Oral SpO2: 95% 93% 93% Weight: Height: I/O last 2 completed shifts: In: - Out: 400 [Urine:400] No intake/output data recorded. Medications: Scheduled Medications Medication Dose Route Frequency [Held by Provider] apixaban (ELIQUIS) tablet 5 mg 5 mg oral BID atorvastatin (LIPITOR) tablet 80 mg 80 mg oral QAM ceFAZolin (ANCEF) 1 gram/10 mL in sterile water (premix) 1,000 mg 1,000 mg intravenous Q8H cetirizine (ZyrTEC) tablet 10 mg 10 mg oral QAM [Held by Provider] clopidogreL (PLAVIX) tablet 75 mg 75 mg oral Daily ezetimibe (ZETIA) tablet 10 mg 10 mg oral Daily famotidine (PEPCID) tablet 20 mg 20 mg oral BID ferrous sulfate delayed release tablet 65 mg of elemental iron 65 mg of elemental iron oral BID with meals (bkfst, dinner) fluticasone propionate (FLONASE) 50 mcg/actuation nasal spray 1 spray 1 spray each nostril QAM folic acid (FOLVITE) tablet 1 mg 1 mg oral Daily lisinopriL (PRINIVIL,ZESTRIL) tablet 20 mg 20 mg oral Daily magnesium oxide (MAG-OX) tablet 400 mg 400 mg oral BID megestrol (MEGACE) 40 mg/mL oral suspension 400 mg 400 mg oral Daily metoprolol tartrate (LOPRESSOR) immediate release tablet 25 mg 25 mg oral BID potassium chloride ER (KLOR-CON) extended release tablet 20 mEq 20 mEq oral BID tamsulosin (FLOMAX) extended release capsule 0.4 mg 0.4 mg oral Daily with dinner thiamine (VITAMIN B-1) tablet 100 mg 100 mg oral Daily Physical Exam: Gen: appears in no acute distress Neuro: Alert, oriented x3 Pulmonary: diminished to ausculation; Cardiovascular: irregular rhythm. No murmurs heard. GI: abdomen soft, non-tender; positive BS Musculoskeletal: No joint swelling, tenderness or warmth. Skin: No decubitus ulcers Labs: Labs reviewed Recent Results (from the past 24 hours) Magnesium Collection Time: 12/06/24 3:17 PM Result Value Ref Range Magnesium 1.9 1.4 - 2.5 mg/dL Phosphorus Collection Time: 12/06/24 3:17 PM Result Value Ref Range Phosphorus, pl 3.7 2.3 - 4.5 mg/dL CBC without differential Collection Time: 12/07/24 3:30 AM Result Value Ref Range WBC 11.69 (H) 3.80 - 9.90 K/cumm Hgb 11.0 (L) 13.0 - 17.5 g/dL Hct 34.4 (L) 38.9 - 50.3 % Plt 468 (H) 150 - 400 K/cumm MPV 9.4 9.1 - 12.3 fL RBC 3.85 (L) 4.30 - 5.80 M/cumm MCV 89.4 81.3 - 96.4 fL MCH 28.6 27.1 - 33.3 pg MCHC 32.0 (L) 32.3 - 35.7 g/dL RDW CV 14.5 11.1 - 14.9 % RDW SD 46.5 35.7 - 48.1 fL NRBC abs 0.00 0.00 - 0.01 K/cumm Basic metabolic panel Collection Time: 12/07/24 3:30 AM Result Value Ref Range Sodium 138 135 - 145 mmol/L Potassium, pl 3.8 3.3 - 4.9 mmol/L Chloride 106 97 - 110 mmol/L CO2 19 (L) 22 - 32 mmol/L Anion gap 13 2 - 15 mmol/L BUN 14 6 - 25 mg/dL Creatinine 0.86 0.80 - 1.30 mg/dL Glucose 95 70 - 199 mg/dL Calcium 9.2 8.5 - 10.3 mg/dL eGFR Collection Time: 12/07/24 3:30 AM Result Value Ref Range eGFR 90 >=60 mL/min/1.73 m2 Lab Review: I personally reviewed these images. Recent laboratory data was reviewed. Medications and allergies were reviewed. [] I confirmed that the patient's Advance Care Plan is present, code status is documented, or surrogate decision maker is listed in the patient's medical record. Imaging: Cxr FINDINGS:Compared with the study of 11/28/2024, postsurgical changes in the heart and mediastinum. Heart size upper limits of normal. Pacing leads stable. No failure fluid or infiltrates. IMPRESSION: No active disease. No failure.. Assessment & Plan: Fever weakness with possible underlying infection of unclear etiology ; patient has recent history of urinary tract infection that has been treated - Infectious disease consulted; treated with broad-spectrum antibiotics, repeat blood cultures cameback to be negative to date, cefepime was discontinued Sick sinus syndrome- Tachy lucien syndrome for Pacemaker placement 12/06/24 Cardio consulted CAD with CABG and stents on ASA , high intensity statin and metoprolol xl. PCI Jun 2024 for complex stenosis of the RCA Chronic atrial fibrillation on apixaban , metoprolol . Urinary retention - urology consulted and patient was presented with options including intermittentself-catheterizations /Coelho catheterization; intermittent catheterization has lower risk of urinary tract infection then indwelling Coelho - bladder scan every 6 hours ; straight cath p.r.n. for post void greater than 300 - cont F;omax HTN on lisinopril, metoprolol. Normocytic anemia mild with no active bleeding Moderate Malnutrition- dietitian consult continue appetite stimulant Mild hyponatremia will trend levels for now. Hx of CVA 's - continue Eliquis Plavix and statin currently held secondary to procedure pacemaker placement Rosa Agrawal, CASSY Team [facility] [phone] 12/07/2024 2:27 PM * Bismark Clancy COTA - 12/07/2024 1:37 PM CDT Occupational Therapy Patient returned from getting pacemaker however, is on bed rest till 1600. Therapist will check back at a later date. INA Johnson 12/07/24 1:37 PM * Beatriz Kimball, PT - 12/07/2024 10:35 AM CDT Physical Therapy Off the floor getting a pacemaker, will be on bed rest until 1600, will follow up with patient tomorrow * Sage Tillman MD - 12/07/2024 10:04 AM CDT [facility] - Cardiology [facility] Progress Note Admit Date: 11/27/2024 9:48 AM @EDAYS@ PCP: Raquel Callejas MD Patient seen and examined Chart , telemtry reviewed Symptoms Patient denies chest pain, dyspnea, palpitations, sweating or syncope. Data Vitals: 12/06/24 2358 12/07/24 0410 12/07/24 0724 12/07/24 0825 BP: 142/74 129/66 134/66 BP Location: Right arm Right arm Right arm Patient Position: HOB 30 degrees HOB 30 degrees Lying Pulse: 113 57 67 72 Resp: 18 Temp: 36.8 ??C (98.2 ??F) 37 ??C (98.6 ??F) 36.7 ??C (98.1 ??F) TempSrc: Oral Oral Oral SpO2: 93% 95% 93% Weight: Height: Intake/Output Summary (Last 24 hours) at 12/07/2024 1004 Last data filed at 12/07/2024 0410 Gross per 24 hour Intake -- Output 400 ml Net -400 ml Lab Results Component Value Date WBC 11.69 (H) 12/07/2024 WBC 8.24 12/06/2024 WBC 8.00 12/05/2024 HGB 11.0 (L) 12/07/2024 HGB 11.0 (L) 12/06/2024 HGB 11.7 (L) 12/05/2024 HCT 34.4 (L) 12/07/2024 HCT 33.6 (L) 12/06/2024 HCT 36.4 (L) 12/05/2024 Lab Results Component Value Date SODIUM 138 12/07/2024 SODIUM 138 12/06/2024 SODIUM 138 12/05/2024 POTASSIUM 3.8 12/07/2024 POTASSIUM 3.3 12/06/2024 POTASSIUM 3.5 12/05/2024 CHLORIDE 106 12/07/2024 CHLORIDE 104 12/06/2024 CHLORIDE 104 12/05/2024 CO2 19 (L) 12/07/2024 CO2 21 (L) 12/06/2024 CO2 22 12/05/2024 CREATININE 0.86 12/07/2024 CREATININE 0.87 12/06/2024 CREATININE 0.77 (L) 12/05/2024 GLUCOSE 95 12/07/2024 GLUCOSE 104 12/06/2024 GLUCOSE 114 12/05/2024 CALCIUM 9.2 12/07/2024 CALCIUM 9.4 12/06/2024 CALCIUM 9.7 12/05/2024 No results found for: PTT No results found for: PT No results found for: INR No results found for: BNP No components found for: TROPONIN No results found for: CHOL, TRIG, HDL, LDLCALC No results found for: ALBUMIN, ALKPHOS, ALT, AST No components found for: MAGMGDL No results found for: TSH No results found for: T3FREE No results found for: [id number] Meds MEDICATIONS FOR CURRENT ENCOUNTER: SCHEDULED MEDICATIONS: Scheduled Medications Medication Dose Route Frequency [Held by Provider] apixaban (ELIQUIS) tablet 5 mg 5 mg oral BID atorvastatin (LIPITOR) tablet 80 mg 80 mg oral QAM cetirizine (ZyrTEC) tablet 10 mg 10 mg oral QAM clopidogreL (PLAVIX) tablet 75 mg 75 mg oral Daily ezetimibe (ZETIA) tablet 10 mg 10 mg oral Daily famotidine (PEPCID) tablet 20 mg 20 mg oral BID ferrous sulfate delayed release tablet 65 mg of elemental iron 65 mg of elemental iron oral BID with meals (bkfst, dinner) fluticasone propionate (FLONASE) 50 mcg/actuation nasal spray 1 spray 1 spray each nostril QAM folic acid (FOLVITE) tablet 1 mg 1 mg oral Daily lisinopriL (PRINIVIL,ZESTRIL) tablet 20 mg 20 mg oral Daily magnesium oxide (MAG-OX) tablet 400 mg 400 mg oral BID megestrol (MEGACE) 40 mg/mL oral suspension 400 mg 400 mg oral Daily metoprolol tartrate (LOPRESSOR) immediate release tablet 12.5 mg 12.5 mg oral BID potassium chloride ER (KLOR-CON) extended release tablet 20 mEq 20 mEq oral BID tamsulosin (FLOMAX) extended release capsule 0.4 mg 0.4 mg oral Daily with dinner thiamine (VITAMIN B-1) tablet 100 mg 100 mg oral Daily CONTINUOUS MEDICATIONS: Continuous Medications Medication Dose Last Rate PRN MEDICATIONS: PRN Medications Medication Dose Route Frequency Last Admin acetaminophen (TYLENOL) tablet 650 mg 650 mg oral Q6H PRN 650 mg at 12/05/24 1224 artificial tears (usptnau-ddufsttbcytd-znctxajz) (GENTEAL TEARS MODERATE) 0.1-0.3-0.2 % ophthalmic solution 1 drop 1 drop each eye QID PRN 1 drop at 12/07/24 0827 docusate sodium (COLACE) capsule 100 mg 100 mg oral BID PRN 100 mg at 12/03/24 2108 hydrOXYzine (ATARAX) tablet 25 mg 25 mg oral Q4H PRN 25 mg at 12/05/24 1224 ondansetron (ZOFRAN) injection 4 mg 4 mg intravenous Q4H PRN 4 mg at 11/30/242031 ramelteon (ROZEREM) tablet 8 mg 8 mg oral Nightly PRN 8 mg at 12/04/242152 sodium chloride 0.9% flush 10 mL 10 mL intravenous PRN 10 mL at 11/29/24 1308 Allergies Allergen Reactions Meperidine Vomiting, Other (See comments) and Nausea & Vomiting Review of Systems: All systems were reviewed. Pertinent positives are mentioned above. Exam General appearance: alert, cooperative, no distress Neck: No JVD. No carotid Bruit Chest: Decreased air entry bilaterally,No added sounds Cardiovascular: regular rate, rhythm, normal S1 and S2, without rub, gallops PSM 2/ Abdomen: soft without mass, non-tender, with normal bowel sounds Extremities: no clubbing, cyanosis or edema. Assessment /Plan Chest tightness -EKG with no acute changes -hx of CAD as noted below Stress test was within normal limits no additional cardiac testing is indicated CAD s/p CABG -last cath 06/2024 -s/p PCI 06/2024 with complex stenosis in the RCA -patient with chest tightness on admit, stress test this afternoon for stratification HTN -episodes of elevated BP -monitor and adjust meds as needed History of Afib -On apixaban 5 mg twice daily which has been hold for the last 2 days because of need for pacemakerwhich will be done today for symptomatic tachy-lucien syndrome. Details of the procedure risks involved including infection pneumothorax has been explained to the patient he understands and wishes to proceed - Dyslipidemia -On atorvastatin and Zetia LDL cholesterol is acceptable Hx of CVA -continue statin/Plavix Confusion hospitalists are managing Sage Tillman MD * Son Card MD - 12/06/2024 1:10 PM CDT General Medicine Daily Progress SUBJECTIVE: Chief complaint of Fever and chills. Interval History: Chart reviewed and Pt examined Admit HPI Patient is a 74 y.o. male with past medical history of CVA on 10/23, CAD s/p CABG, atrial fibrillation, urinary retention, hyperlipidemia, diplopia and hypertension who presented as a direct admit from [facility] after being noted with fevers overnight, elevated WBCs up to 33, incontinence of urine and fatigue. Of note, patient was recently admitted here at [facility] on 11/15 and transferred to rehab on 11/18 after being treated for possible UTI with cefdinir until 11/24. Currently patient reports ongoing fatigue and generalized weakness. He denies any other associated symptoms. Denies chest pain, SOB, abdominal pain, constipation, diarrhea, dysuria, chills or fever. Initial workup showed urinalysis being negative after recently being treated with cefdnir. CT chestabdomen pelvis possible underlying cystitis, incidental cecal thickening. High attenuation of the renal. Metastasis that may represent medullary nephrocalcinosis or underlying dehydration state. Due to above, patient will be admitted for further evaluation, care and management 11/29/24 Vital signs reviewed CBC,BMP,Calcium ordered and reviewed Discussed with director social and case management 11/30/24 Met with his at the bedside Vital signs reviewed CBC,bmp,Calcium ordered and reviewed Stress test negative 12/01/24 Vital signs reviewed Awaiting [facility] or SNF IV antibiotics stopped Wbc 8.01 CBC,BMP,CALCIUM ORDERED AND REVIEWED 12/02/24 Vital signs reviewed BP 156/64 to 177/79 Prinivil increased to 20 mg daily and Norvasc 5 mg daily added Discussed with his at the bedside CBC,BMP,Calcium ordered and reviewed DC planning in progress 12/03/24 Vital signs reviewed CBC,BMP ordered and reviewed Awaiting placement Improved bp control 12/04/24 Discussed with his at the bedside Vital signs reviewed Had a 5 second pause Cardiology following CBC,BMP,CALCIUM ORDERED AND REVIEWED 12/05/24 Discussed with his and also with cardiology Beta a[place] stopped had a fib flutter today HR 110 To be evaluated for pacemaker placement CBC,BMP,Calcium Discussed with director social and case mangeemnt 12/06/24 Discussed with director social and case manageement Met with at the bedside Cbc,bmp,CALCIUM ORDERED AND REVIEWED Potassium is 3.3 FOR PACEMAKER IN THE AM Check Mag and Phos Review of Systems Constitutional: Positive for activity change and fatigue. HENT: Negative. Eyes: Negative. Respiratory: Negative. Cardiovascular: Negative. Gastrointestinal: Negative. Endocrine: Negative. Genitourinary: Negative. Musculoskeletal: Negative. Allergic/Immunologic: Negative. Neurological: Negative. Hematological: Negative. Psychiatric/Behavioral: Negative. OBJECTIVE: Vitals: 24hr Min/Max: Temp Min: 36.4 ??C (97.5 ??F) Max: 37.3 ??C (99.1 ??F) Pulse Min: 46 Max: 117 BP Min: 83/51 Max: 133/64 Resp Min: 14 Max: 20 SpO2 Min: 96 % Max: 99 % Most Recent : Vitals: 12/06/24 0822 12/06/24 0910 12/06/24 1100 12/06/24 1158 BP: 133/64 94/49 BP Location: Left arm Left arm Patient Position: Lying Lying Pulse: (!) 49 90 (!) 47 (!) 46 Resp: 16 16 Temp: 37.3 ??C (99.1 ??F) 36.7 ??C (98.1 ??F) TempSrc: Oral Oral SpO2: 96% 98% Weight: Height: I/O last 2 completed shifts: In: 700 [P.O.:700] Out: 1290 [Urine:1290] No intake/output data recorded. Physical Exam: Physical Exam Vitals and nursing note reviewed. Constitutional: Appearance: Normal appearance. HENT: Head: Normocephalic. Nose: Nose normal. Mouth/Throat: Mouth: Mucous membranes are moist. Eyes: General: No scleral icterus. Right eye: No discharge. Left eye: No discharge. Extraocular Movements: Extraocular movements intact. Conjunctiva/sclera: Conjunctivae normal. Pupils: Pupils are equal, round, and reactive to light. Cardiovascular: Rate and Rhythm: Normal rate and regular rhythm. Pulses: Normal pulses. Comments: Healed median sternotomy Pulmonary: Effort: Pulmonary effort is normal. Breath sounds: Normal breath sounds. No wheezing. Abdominal: General: Abdomen is flat. Bowel sounds are normal. There is no distension. Musculoskeletal: General: Normal range of motion. Cervical back: Normal range of motion and neck supple. Right lower leg: No edema. Left lower leg: No edema. Comments: Healed anterior left shoulder surgical scar Skin: General: Skin is warm. Neurological: General: No focal deficit present. Mental Status: He is alert and oriented to person, place, and time. Psychiatric: Mood and Affect: Mood normal. Behavior: Behavior normal. Lab/Radiology/Diagnostic Review: Recent Results (from the past 24 hours) CBC without differential Collection Time: 12/06/24 5:04 AM Result Value Ref Range WBC 8.24 3.80 - 9.90 K/cumm Hgb 11.0 (L) 13.0 - 17.5 g/dL Hct 33.6 (L) 38.9 - 50.3 % Plt 467 (H) 150 - 400 K/cumm MPV 9.3 9.1 - 12.3 fL RBC 3.76 (L) 4.30 - 5.80 M/cumm MCV 89.4 81.3 - 96.4 fL MCH 29.3 27.1 - 33.3 pg MCHC 32.7 32.3 - 35.7 g/dL RDW CV 14.5 11.1 - 14.9 % RDW SD 46.8 35.7 - 48.1 fL NRBC abs 0.00 0.00 - 0.01 K/cumm Basic metabolic panel Collection Time: 12/06/24 5:04 AM Result Value Ref Range Sodium 138 135 - 145 mmol/L Potassium, pl 3.3 3.3 - 4.9 mmol/L Chloride 104 97 - 110 mmol/L CO2 21 (L) 22 - 32 mmol/L Anion gap 13 2 - 15 mmol/L BUN 15 6 - 25 mg/dL Creatinine 0.87 0.80 - 1.30 mg/dL Glucose 104 70 - 199 mg/dL Calcium 9.4 8.5 - 10.3 mg/dL eGFR Collection Time: 12/06/24 5:04 AM Result Value Ref Range eGFR 90 >=60 mL/min/1.73 m2 ECG 12 lead Result Date: 11/28/2024 Narrative: Vent Rate: 51 bpm RR Interval: 1162 msec IA Interval: 258 msec QRS Duration: 118 msec QTInterval: 442 msec QTC Interval: 419 msec P-R-T [place]: -76 - 2 - 21 degrees IMPRESSION: SINUS BRADYCARDIA WITH FIRST DEGREE AV BLOCK WITH OCCASIONAL SUPRAVENTRICULAR PREMATURE COMPLEXES SEPTAL MYOCARDIAL INFARCTION , OF INDETERMINATE AGE [40+ ms Q WAVE IN V1/V2] ABNORMAL ECG NO CHANGE FROM PREVIOUS TRACING NOTED Electronically Signed By: Murphy Gaitan MD XR Chest 1 View Result Date: 11/28/2024 Narrative: EXAMINATION: XR CHEST 1 VIEW DATE: 11/28/2024 10:00 AM HISTORY: Shortness of breath heartdisease FINDINGS:Compared with the study of 11/25/2024, postsurgical changes in the heart and mediastinum with cardiomegaly. No failure fluid infiltrates or pneumothorax. Right shoulder arthroplasty Impression: Cardiomegaly. No active disease. Electronically signed by: Yordan Dai M.D. CT Chest Abdomen Pelvis WO Contrast Result Date: 11/27/2024 Narrative: EXAMINATION: CT CHEST ABDOMEN PELVIS WO CONTRAST TECHNIQUE: Computed tomographic examination the chest, abdomen and pelvis was performed with intravenous contrast using standard protocol. HISTORY: Increased white count COMPARISON:I do not have a prior study available for comparison FINDINGS: CHEST: There is reticulation at the lung bases that may represent interstitial lung abnormalities. There is no honeycombing or traction bronchiectasis. There are no pulmonary nodules or masses that would suggest primary or metastatic disease. No pleural effusion pneumothorax or focal consolidation present. There is no supraclavicular mediastinal or hilar lymphadenopathy measuring greater than10 mm. Changes compatible with prior coronary artery bypass grafting noted. There is three-vessel coronary artery calcification. There is no pericardial thickening or effusion. Abdomen pelvis: Liver pancreas and gallbladder are normal. There is bilateral renal cysts. Nonobstructing renal calculi noted bilaterally. In addition, there is high attenuation of the renal Minutes. This may represent a dehydration state or conceivably medullary nephrocalcinosis. There is diffuse atherosclerotic diseaseof the aorta and branch vessels. There is diverticulosis no acute diverticulitis. There is a thick-walled bladder with inflammatory stranding suggesting possible cystitis. Enlarged prostate gland noted. Limited evaluation of the cecum demonstrates asymmetric thickening. While this is nonspecific and could represent mucosal collapse in there is clinical concern for any underlying malignancy I would recommend further evaluation with endoscopy. Osseous windows demonstrate no lytic or blastic lesions. Multilevel degenerative disc disease noted. Impression: 1. Possible underlying cystitis. 2. Recommend follow up of the Incidental cecal thickening Additional Imaging In 1 Month with referral to gastroenterology and possible endoscopy. 3. High attenuation of the renal. Metastases that may represent medullary nephrocalcinosis or underlying dehy dration state.. Electronically signed by: Migue Falk M.D., MPH XR Chest 1 View Result Date: 11/26/2024 Narrative: EXAMINATION: XR CHEST 1 VIEW Impression: Comparison with 2024. The lung volumes are small resulting in pulmonary vascular crowding. There is no focal pneumonic consolidation pneumothorax or pleural effusion. There is a tortuous atherosclerotic aorta. There is mild cardiomegaly. Sternal wires are midline and nondisplaced. Electronically signed by: Migue Falk M.D., [facility] EEG Result Date: 11/16/2024 Narrative: This EEG was performed for evaluation of an episode of unresponsiveness. This EEG was recorded during wakefulness and drowsiness using a 16 channel EEG machine utilizing the international 10 20 system of electrode placement with bipolar and monopolar montages. The EEG was characterized by a moderate amount of muscle tension and movement artifact. The patient's waking background electrical activity consists of low voltage 8-9 hertz alpha waves best seen in the posterior head regions. During periods of drowsiness 6-7 hertz theta waves of medium voltage predominate. No focal slowing paroxysmal or epileptiform activity is seen. Impression: Normal EEG during wakefulness and drowsiness. Clinical correlation is recommended. MRI Brain WO Contrast Result Date: 11/16/2024 Narrative: EXAMINATION: MRI BRAIN WO CONTRAST HISTORY: 74-year-old man strokelike symptoms history of heart disease hypertension vascular disease TECHNIQUE: Multiplanar multisequence spin-echo imagesobtained FINDINGS: Correlation is made with an MRI dated 10/25/2024, noncontrast CT of 11/15/2024 and a CTA of 11/15/2024. Stable involutional changes with large ventricles and sulci beyond expectations of the patient's age. Diffusion images abnormal with multiple punctate areas of restricted diffusion, in the centrum semi-Milligan bilaterally of the frontal and parietal regions, right occipital cortex, subfrontal right deep white matter, left occipital region. Sparing of the posterior fossa. Areas of restricted diffusion are more pronounced than on the previous study. On the FLAIR images, areas of T2 hyperintensity in the subcortical and periventricular deep white matter, larissa, bilateral occipital regions, more pronounced than previous. Periventricular and subcortical T2 hyperintensities are again seen. Area of T2 hyperintensity in the basal ganglia on the left side involving the lentiform nucleus stable. T2-weighted images demonstrate flow voids within the left vertebral artery with asmall caliber right vertebral artery incompletely seen. Basilar artery patent. Intracranial internal carotid arteries, anterior middle cerebral arteries patent. Deep venous sinuses appear to be patent. Bilateral cataract surgery. Paranasal sinuses and mastoid air cells normally pneumatized. Susceptibility images demonstrate a punctate hemosiderin stain in the medulla dorsally, the right occipitalregion, small area in the left occipital region, left frontal region, right parietal lobe, left frontal lobe. Impression: Multiple acute infarcts bilaterally with restricted diffusion. Multi vascular distribution raise the possibility of either embolic phenomenon versus watershed infarcts. Significant atrophy and small vessel disease. Old hemorrhagic changes. Electronically signed by: Yordan Dai M.D. CTA/CTP Rapid Stroke (C) Result Date: 11/15/2024 Narrative: EXAMINATION: Computed tomography angiography (CTA) of the head with contrast; Computed tomography angiography (CTA) of the neck with contrast. CT perfusion imaging of the head with contrast HISTORY: Suspected hyperacute stroke. 74-year-old man unresponsive history of hypertension TECHNIQUE: . Computed tomographic angiography was obtained from the level of the aortic arch to the vertex following the uneventful administration of intravenous contrast according to hyperacute stroke protocol. 3D images were generated on a dedicated workstation. CT perfusion of the brain was performed with intravenous contrast using a separate data acquisition. The data was transmitted to a separate wor kstation for processing by RAPID software ([employer]) to produce automated calculations of the estimated cerebral blood flow and Tmax. Contrast information: 120 mL Optiray-350 COMPARISON: 10/25/2024 and a CAT scan without contrast earlier today. FINDINGS: HEAD CT FINDINGS: Source images demonstrate stable involutional changes with mild prominence of the ventricles and sulci. Normal vascular enhancement is seen within the deep venous sinuses and [place]. No definitive oligemic areas are seen. No abnormal intracranial enhancement is seen. Great vessels the neck are patent with dominance of the left vertebral artery. Calcification is seen at the carotid bifurcations and cavernous carotid arteries. Aortic arch calcifications are seen without aneurysmal dilatation or dissection. Coronary artery calcifications are noted. Lung apices demonstrate no abnormalities. 2-D and 3-D images:ANGIOGRAPHIC FINDINGS: The visualized aortic arch appears normal with normal configuration of the great vessels. There is no significant stenosis of the origins of the great vessels. There is no geographic area of vascular paucity in the brain. Left anterior circulation: L CCA: no occlusion or significant stenosis. Extensive calcification at the bifurcation extending into the proximal internal carotid artery with no hemodynamically significant stenosis. L carotid bifurcation: no occlusion or significant stenosis L ICA proximal: no occlusion or significant stenosis L ICA distal: no occlusion or significant stenosis L ICA terminus: Atherosclerotic calcifications without high-grade stenosis. LM1: no occlusion or significant stenosis L M2 branches: Dense calcifications with irregularity with mild nonhemodynamically significant stenosis of the trifurcation L A2: no occlusion or significant stenosis. Hypoplastic A1 segment with patent anterior communicating artery. Right anterior circulation: R CCA: Atherosclerotic calcifications without high-grade stenosis. R carotid bifurcation: Atheros clerosis without hemodynamically significant stenosis R ICA proximal: Tortuosity without stenosis LUIS distal: no occlusion or significant stenosis R ICA terminus: Atherosclerotic calcifications without high-grade stenosis R M1: no occlusion or significant stenosis R M2 branches: no occlusion or significant stenosis R A2: no occlusion or significant stenosis. Anterior communicating artery patentPosterior circulation: L Vertebral Artery: no occlusion or significant stenosis. Dominant left vertebral artery. R Vertebral Artery: There is irregularity with multiple areas of moderate stenosis intracranially Basilar Artery: no occlusion or significant stenosis L CODING CLERK: no occlusion or significant stenosis hypoplastic P1 segment with patent posterior communicating artery R CODING CLERK: Hypoplastic P1 segment patent posterior communicating artery No cerebral aneurysm is seen. There is no evidence for anarteriovenous malformation. There is no suspicious cervical lymphadenopathy. There is no significant cervical spondylosis. Limited views of the lung apices are normal. CT Perfusion: Estimated ischemic core volume (rCBF < 0.3): 7 mL Estimated hypoperfusion volume (Tmax > 6 sec): 7 mL Hypoperfusion index 0.5. Mismatch volume 0. Mismatch ratio 1.0. Impression: No CT evidence of stroke. No significant carotid artery stenosis. Diffuse arteriosclerosis. 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 Electronically signed by: Yordan Dai M.D. CT Stroke Head WO Contrast Result Date: 11/15/2024 Narrative: EXAMINATION: CT STROKE HEAD WO CONTRAST dated 11/15/2024 7:20 AM. HISTORY: Code stroke 74-year-old man history of hypertension vascular disease heart disease. FINDINGS: Comparison is made with an MRI dated 10/25/2024. Additionally patient has a CAT scan from 10/25/2024. Lien Searcher radiograph de monstrates no acute findings. Transaxial images demonstrate stable involutional changes with large ventricles and sulci beyond expectations of the patient's age. Extensive periventricular lucencies reflect chronic microvascular disease. Since the previous CAT scan interval development of area of low CT attenuation in the right parieto-occipital lobe. Small area seen on the left parieto- occipital lobe. No hemorrhagic findings. No midline shift. Arteriosclerosis. Craniovertebral junction normal. Normal pituitary fossa. Mucosal thickening in the floor the maxillary sinuses. No bony abnormalities Impression: ATROPHY SMALL VESSEL DISEASE ATHEROSCLEROSIS. DEVELOPMENT OF OCCIPITAL INFARCTS GREATERON THE RIGHT THAN THE LEFT WHICH WAS SEEN ON THE PREVIOUS MRI. NO HEMORRHAGIC CHANGES Electronically signed by: Yordan Dai M.D. XR Chest 1 View Result Date: 2024 Narrative: EXAMINATION: XR CHEST 1 VIEW HISTORY: The patient is a 74-year-old male who presents with shortness of breath. Comparison made with the previous study dated 10/25/2024. TECHNIQUE: AP portable view of the chest. FINDINGS: Lungs clear. Cardiovascular structures unremarkable. Impression: No active disease. Electronically signed by: Solis Stahl M.D. XR Knee Left 1 or 2 Views Result Date: 11/11/2024 Narrative: EXAMINATION: XR KNEE LEFT 1 OR 2 VIEWS HISTORY: Pain FINDINGS: Severe degenerative changes involving the medial joint space. No fracture or dislocation. No effusion. Vascular calcifications Impression: Significant degenerative changes Electronically signed by: Yordan Dai M.D. ECG 12 lead Result Date: 11/08/2024 Narrative: Vent Rate: 60 bpm RR Interval: 989 msec IA Interval: 269 msec QRS Duration: 107 msec QT Interval: 418 msec QTC Interval: 419 msec P-R-T [place]: 69 - -9 - -3 degrees IMPRESSION: SINUS RHYTHM WITH FIRST DEGREE AV BLOCK WITH OCCASIONAL VENTRICULAR PREMATURE COMPLEXES ABNORMAL ECG Electronically Signed By: Gerard Bauer MD XR Kub Result Date: 10/31/2024 Narrative: EXAMINATION: XR KUB HISTORY: The patient is a 73-year-old male who presents with constipation. TECHNIQUE: Supine view of the abdomen. FINDINGS: Moderate fecal impaction seen in the left colon. No dilated small or large bowel loops. Impression: Fecal impaction. Electronically signed by: Solis Stahl M.D. [Held by Provider] apixaban, 5 mg, BID atorvastatin, 80 mg, QAM cetirizine, 10 mg, QAM clopidogreL, 75 mg, Daily ezetimibe, 10 mg, Daily famotidine, 20 mg, BID ferrous sulfate, 65 mg of elemental iron, BID with meals (bkfst, dinner) fluticasone propionate, 1 spray, QAM folic acid, 1 mg, Daily lisinopriL, 20 mg, Daily magnesium oxide, 400 mg, BID megestrol, 400 mg, Daily metoprolol tartrate, 12.5 mg, BID tamsulosin, 0.4 mg, Daily with dinner thiamine, 100 mg, Daily ASSESSMENT/PLAN: Principal Problem: Fever and chills Active Problems: Moderate protein-calorie malnutrition Possible sepsis Leukocytosis and fever on admission Wbc 33.5 on 11/27/24,20.83 ON 11/28/24, 12.2 ON 11/29/24 AND 9.18 ON 11/30/24 Fever weakness with possible underlying infection of unclear etiology. On cefepime and vancomycin for now. BC pending , resp panel negative , urine with no UTI. CXR with no clear infiltrates. Sick sinus syndrome Tachy lucien syndrome for Pacemaker placement 12/06/24 Chest pain will send EKG, troponin series and have cardiology to see. CAD with CABG and stents on ASA , high intensity statin and metoprolol xl. PCI Jun 2024 for complex stenosis of the RCA History of CVA on statin and ASA. Chronic atrial fibrillation on apixaban , metoprolol . Urinary retention on tamsulosin has a urinary catheter now , will need urology as outpatient if fails voiding trial. HTN on lisinopril, metoprolol. Normocytic anemia mild with no active bleeding Moderate Malnutrition Apetite stimulant Mild hyponatremia will trend levels for now. [] I confirmed that the patient's Advance Care Plan is present, code status is documented, or surrogate decision maker is listed in the patient's medical record. Son Card MD * Vesta Choi, GEOSCIENCE PROFESSOR - 12/06/2024 11:32 AM CDT Physical Therapy PT PROGRESS NOTE PATIENT'S NAME:Ayad Shipman :1950 AGE:74 y.o. ROOM:[place] [address] Past Medical History: Diagnosis Date Dizziness Hyperlipidemia Hypertension Loss of balance Nocturia Visual disturbance Past Surgical History: Procedure Laterality Date ANKLE SURGERY CORONARY ARTERY BYPASS GRAFT 2005 x4 on Plavix HEART SURGERY LASIK ORAL SURGERY Patient Active Problem List Diagnosis Chronic rhinitis Coronary atherosclerosis Essential hypertension Hyperlipidemia Nocturia Wax in ear Diplopia Dizziness and giddiness Rotator cuff arthropathy of right shoulder Anemia Glenohumeral arthritis, right Paresthesia History of stroke Intracranial vascular stenosis Acute CVA (cerebrovascular accident) (HCC) Altered mental status CVA (cerebrovascular accident due to intracerebral hemorrhage) ([facility]) Episode of unresponsiveness Sepsis ([facility]) Fever and chills Moderate protein-calorie malnutrition TIME IN: 1132 TIME OUT: 1155 SUBJECTIVE Patient stated I'm dizzy MENTAL STATUS/ORIENTATION: alert and oriented x4 PAIN: Pre-therapy pain level: none Pain location: n/a Pain intervention: n/a Post-therapy pain level/response to intervention: n/a OBJECTIVE PRECAUTIONS: fall and bed / chair alarm APPEARANCE/POSTURE: Patient sitting EOB with OT upon arrival and was agreeable to therapy on this date. Call light in reach VITAL SIGNS: BP:115/53 HR: 48 bpm BP: 96/47 HR:46 bpm All other mobility discontinued due to patient requesting to lay down and reports dizziness and lightheadedness MOBILITY DOCUMENTATION: Bed Mobility: sit to supine mod x2 Transfers: n/a Gait: n/a TREATMENT: Patient sat EOB approx 10 min poor balance min APPEARANCE/POSTURE (end of session): Patient lying supine with HOB elevated call light in reach andbed alarm activated HANDOFF: Verbal handoff given to Joy FARRAR ALARMS: Bed alarm in place / active EDUCATION: bed mobility and therapeutic activity RESPONSE TO EDUCATION: needs reinforcement ASSESSMENT Activity tolerance/response to P.T.: Patient tolerated treatment well with no further complaints. Barriers to learning: Physical Barriers to discharge: Limited participation, Decreased endurance, Upper extremity weakness, and Lower extremity weakness Patient continues progressing toward previously set goals which remain appropriate at this time. PLAN PT Discharge Recommendations this date: PT Recommendation/Plan: Inpatient Rehab Facility Patient at high risk for: Falls, Readmission, Injury due to decreased ability to care for self, Injury due to reduced functional status, Injury due to balance deficits, Injury at home as patient has not returned to prior level of function Recommend Inpatient Rehab/Acute Rehab due to: Ability to actively participate in intensive therapy 3 hours/day, 5 days/week or 900 minutes per week, Highly motivated to participate in therapy, Not atbaseline due to impaired ability to complete ADLs, Impaired ability to complete functional mobility, Likely to return to the community at discharge with support system in place, Requires greater than25% physical assistance with most mobility tasks, Requires greater than 25% physical assistance with most ADL tasks, Requires multiple therapy disciplines to address functional deficits, Patient and caregiver require specialized skilled training due to new level of function/diagnosis, Requires skilled therapy interventions to address neurological deficits PT Frequency during current admission: Daily CARE PLAN Multi-Disciplinary Problems (from Physical Therapy) Active Problems Problem: PT Misc Start Date: 11/28/24 Goal Start Date Expected End Date End Date PT LTG - perform sup to sit with min A 11/28/24 12/05/24 -- Progressing towards goal Goal Start Date Expected End Date End Date PT LTG - perform sit to stand with min A 11/28/24 12/05/24 -- Progressing towards goal Goal Start Date Expected End Date End Date PT LTG - perform gait with wh walker 50 feet with min A 11/28/24 12/05/24 -- Progressing towards goal Goal Start Date Expected End Date End Date PT LTG -perform sitting balance with good balance dynamic x 5 min 11/28/24 12/05/24 -- Progressing towards goal Goal Start Date Expected End Date End Date PT LTG - perform bed to chair transfer with min A of 1 12/01/24 12/08/24 -- Progressing towards goal If this is the last note, please consider this the discharge summary. Cosigned by Beatriz Kimball PT at 12/07/2024 7:48 AM CDT * ThursdayOtsi COTA - 12/06/2024 11:20 AM CDT Occupational Therapy NOTE / SESSION TYPE: DAILY PROGRESS / TREATMENT Patient's Name: Ayad Shipman Age / Sex: 74 y.o. / male Room: [place] [address] : 1950 Date of service: 12/06/24 TIME IN: 1120 TIME OUT: 1152 Patient Active Problem List Diagnosis Chronic rhinitis Coronary atherosclerosis Essential hypertension Hyperlipidemia Nocturia Wax in ear Diplopia Dizziness and giddiness Rotator cuff arthropathy of right shoulder Anemia Glenohumeral arthritis, right Paresthesia History of stroke Intracranial vascular stenosis Acute CVA (cerebrovascular accident) ([facility]) Altered mental status CVA (cerebrovascular accident due to intracerebral hemorrhage) ([facility]) Episode of unresponsiveness Sepsis ([facility]) Fever and chills Moderate protein-calorie malnutrition Past Medical History: Diagnosis Date Dizziness Hyperlipidemia Hypertension Loss of balance Nocturia Visual disturbance Past Surgical History: Procedure Laterality Date ANKLE SURGERY CORONARY ARTERY BYPASS GRAFT 2005 x4 on Plavix HEART SURGERY LASIK ORAL SURGERY Precautions (including weight-bearing): Fall risk and Bed / chair alarm Subjective: After supine to sit at EOB pt reporting dizziness and light headed return to supine drop BP from 115/53 to 98/49 . Therapy Pain: Pre-therapy pain level: 0 /10 Pain location: No pain - Location N/A Pain Intervention(s): Pain medication administered prior to session Post-therapy pain level: 0 /10 Pain scale reference: 0-10 SCALE Objective: Appearance: Presentation upon OT arrival: Patient Supine with head of bed elevated Presentation upon OT departure: Patient Supine with head of bed elevated Bed / Chair alarm in place and activated upon OT departure: Yes Call light within arms reach of patient at end of session: Yes Completed patient handoff and notified PATENT CLERK / RN, name: Joy , of patient's location and functional status upon completion of session VITAL SIGNS: Heart rate at rest: 76 BPM After performing supine to sit:48 BPM Heart rate with activity: 46 BPM O2 saturations at rest: 96 % O2 saturations with activity: 95 % Oxygen LPM: room air Blood pressure at rest: 103/50 supine in bed After performing supine to sit:115/53 Blood pressure with activity: 98/49 supine in bed Cognitive / Perceptual: A & O x 4 Mobility / Transfers: Bed Mobility: supine to sit at EOB requring min assist for trunk management with HOB flat and min tactile cues for sequencing. Sit to supine requring mod assist x 2 person. Transfer(s): No due low HR and BP. Living Skills / Other Activities: UE dressing: Patient completed upper body dressing of Hospital gown while Supine with head of bed elevated with overall Moderate assistance. Patient required assistance for threading RUE, pulling around back, fasteners, verbal cue(s), sequencing, set-up of items, increased time to complete, and safety. Caregiver Present: No Education & Training Provided: Role of OT, OT plan of care, ADL training, Bed mobility training, Balance training, Safety education, Pursed lip breathing / Relaxation techniques, and Energy conservation education Assessment: Activity tolerance / response to OT session: decreased endurance and fatigue GOOD PARTICIPATION, GOOD MOTIVATION, and RECEPTIVE TO EDUCATION / TRAINING Progress towards goals: Please refer to care plan from this date for progress towards individual goals Plan: Therapy Plan: Rehab Potential (Prognosis): good OT Recommendations This Date: OT RECOMMENDATIONS: OT Recommendation: Inpatient Rehab Facility Flow sheet updated and OT Consultation in Regards to Change in Discharge Recommendations: YES /NO: No Additional recommendation comments: Recommend Inpatient Rehab/Acute Rehab due to: Ability to actively participate in intensive therapy 3 hours/day, 5 days/week or 900 minutes per week, Highly motivated to participate in therapy, Not at baseline due to impaired ability to complete ADLs, Impaired ability to complete functional mobility, Likely to return to the community at discharge with support system in place, Requires greater than 25% physical assistance with most mobility tasks, Requires greater than 25% physical assistance with most ADL tasks, Requires multiple therapy disciplines to address functional deficits Frequency of therapy:OT Frequency during current admission: 3-5x/wk If this is the last note, consider this the discharge summary INA Reed 12/06/24 Cosigned by Briana Perez OT at 12/08/2024 7:44 AM CDT * Sage Tillman MD - 12/06/2024 9:04 AM CDT [facility] - Cardiology [facility] Progress Note Admit Date: 11/27/2024 9:48 AM @JORDYN@ PCP: Raquel Callejas MD Patient seen and examined Chart , telemtry reviewed Symptoms Patient denies chest pain, dyspnea, palpitations, sweating or syncope. Data Vitals: 12/05/24 1957 12/06/24 0000 12/06/24 0400 12/06/24 0822 BP: 109/54 98/62 126/73 133/64 BP Location: Right arm Right arm Left arm Patient Position: Pulse: 113 109 55 (!) 49 Resp: 16 Temp: 36.7 ??C (98.1 ??F) 36.9 ??C (98.4 ??F) 36.7 ??C (98.1 ??F) 37.3 ??C (99.1 ??F) TempSrc: Oral Oral Oral SpO2: 97% 96% 96% 96% Weight: Height: Intake/Output Summary (Last 24 hours) at 12/06/2024 0904 Last data filed at 12/06/2024 0545 Gross per 24 hour Intake 700 ml Output 1290 ml Net -590 ml Lab Results Component Value Date WBC 8.24 12/06/2024 WBC 8.00 12/05/2024 WBC 8.73 12/04/2024 HGB 11.0 (L) 12/06/2024 HGB 11.7 (L) 12/05/2024 HGB 11.7 (L) 12/04/2024 HCT 33.6 (L) 12/06/2024 HCT 36.4 (L) 12/05/2024 HCT 35.3 (L) 12/04/2024 Lab Results Component Value Date SODIUM 138 12/06/2024 SODIUM 138 12/05/2024 SODIUM 137 12/04/2024 POTASSIUM 3.3 12/06/2024 POTASSIUM 3.5 12/05/2024 POTASSIUM 3.7 12/04/2024 CHLORIDE 104 12/06/2024 CHLORIDE 104 12/05/2024 CHLORIDE 102 12/04/2024 CO2 21 (L) 12/06/2024 CO2 22 12/05/2024 CO2 21 (L) 12/04/2024 CREATININE 0.87 12/06/2024 CREATININE 0.77 (L) 12/05/2024 CREATININE 0.76 (L) 12/04/2024 GLUCOSE 104 12/06/2024 GLUCOSE 114 12/05/2024 GLUCOSE 120 12/04/2024 CALCIUM 9.4 12/06/2024 CALCIUM 9.7 12/05/2024 CALCIUM 9.4 12/04/2024 No results found for: PTT No results found for: PT No results found for: INR No results found for: BNP No components found for: TROPONIN No results found for: CHOL, TRIG, HDL, LDLCALC No results found for: ALBUMIN, ALKPHOS, ALT, AST No components found for: MAGMGDL No results found for: TSH No results found for: T3FREE No results found for: [id number] Pain Assessment: No/denies pain Meds MEDICATIONS FOR CURRENT ENCOUNTER: SCHEDULED MEDICATIONS: Scheduled Medications Medication Dose Route Frequency [Held by Provider] apixaban (ELIQUIS) tablet 5 mg 5 mg oral BID atorvastatin (LIPITOR) tablet 80 mg 80 mg oral QAM cetirizine (ZyrTEC) tablet 10 mg 10 mg oral QAM clopidogreL (PLAVIX) tablet 75 mg 75 mg oral Daily ezetimibe (ZETIA) tablet 10 mg 10 mg oral Daily famotidine (PEPCID) tablet 20 mg 20 mg oral BID ferrous sulfate delayed release tablet 65 mg of elemental iron 65 mg of elemental iron oral BID with meals (bkfst, dinner) fluticasone propionate (FLONASE) 50 mcg/actuation nasal spray 1 spray 1 spray each nostril QAM folic acid (FOLVITE) tablet 1 mg 1 mg oral Daily lisinopriL (PRINIVIL,ZESTRIL) tablet 20 mg 20 mg oral Daily magnesium oxide (MAG-OX) tablet 400 mg 400 mg oral BID megestrol (MEGACE) 40 mg/mL oral suspension 400 mg 400 mg oral Daily metoprolol tartrate (LOPRESSOR) immediate release tablet 12.5 mg 12.5 mg oral BID tamsulosin (FLOMAX) extended release capsule 0.4 mg 0.4 mg oral Daily with dinner thiamine (VITAMIN B-1) tablet 100 mg 100 mg oral Daily CONTINUOUS MEDICATIONS: Continuous Medications Medication Dose Last Rate PRN MEDICATIONS: PRN Medications Medication Dose Route Frequency Last Admin acetaminophen (TYLENOL) tablet 650 mg 650 mg oral Q6H PRN 650 mg at 12/05/24 1224 artificial tears (wvxqbyj-xuekfvmodcgl-cwrgdrwl) (GENTEAL TEARS MODERATE) 0.1-0.3-0.2 % ophthalmic solution 1 drop 1 drop each eye QID PRN 1 drop at 12/04/24 0857 docusate sodium (COLACE) capsule 100 mg 100 mg oral BID PRN 100 mg at 12/03/242107 hydrOXYzine (ATARAX) tablet 25 mg 25 mg oral Q4H PRN 25 mg at 12/05/24 1224 ondansetron (ZOFRAN) injection 4 mg 4 mg intravenous Q4H PRN 4 mg at 11/30/242031 ramelteon (ROZEREM) tablet 8 mg 8 mg oral Nightly PRN 8 mg at 12/04/24 215 sodium chloride 0.9% flush 10 mL 10 mL intravenous PRN 10 mL at 11/29/24 1308 Allergies Allergen Reactions Meperidine Vomiting, Other (See comments) and Nausea & Vomiting Review of Systems: All systems were reviewed. Pertinent positives are mentioned above. Exam General appearance: alert, cooperative, no distress Neck: No JVD. No carotid Bruit Chest: Adequate air entry bilaterally,No added sounds Cardiovascular: regular rate, rhythm, normal S1 and S2, without rub, gallops PSM 2/6r Abdomen: soft without mass, non-tender, with normal bowel sounds Extremities: no clubbing, cyanosis or edema. Peripheral pulse palpable Assessment /Plan Chest tightness -EKG with no acute changes -hx of CAD as noted below Stress test was within normal limits no additional cardiac testing is indicated CAD s/p CABG -last cath 06/2024 -s/p PCI 06/2024 with complex stenosis in the RCA -patient with chest tightness on admit, stress test this afternoon for stratification HTN -episodes of elevated BP -monitor and adjust meds as needed History of Afib -On apixaban 5 mg twice daily -has had recurrent RVR off BB. Metoprolol resumed on 12/03 at 12.5 mg BID. Has been having pauses up to 2.5 seconds will closely monitor. Continues to have periods of bradycardia and tachycardia. Will schedule for pacemaker tomorrow Dyslipidemia -On atorvastatin and Zetia LDL cholesterol is acceptable Hx of CVA -continue statin/Plavix Confusion hospitalists are managing Sage Tillman MD * Son Card MD - 12/05/2024 1:55 PM CDT General Medicine Daily Progress SUBJECTIVE: Chief complaint of Fever and chills. Interval History: Chart reviewed and Pt examined Admit HPI Patient is a 74 y.o. male with past medical history of CVA on 10/23, CAD s/p CABG, atrial fibrillation, urinary retention, hyperlipidemia, diplopia and hypertension who presented as a direct admit from [facility] after being noted with fevers overnight, elevated WBCs up to 33, incontinence of urine and fatigue. Of note, patient was recently admitted here at [facility] on 11/15 and transferred to rehab on 11/18 after being treated for possible UTI with cefdinir until 11/24. Currently patient reports ongoing fatigue and generalized weakness. He denies any other associated symptoms. Denies chest pain, SOB, abdominal pain, constipation, diarrhea, dysuria, chills or fever. Initial workup showed urinalysis being negative after recently being treated with cefdnir. CT chestabdomen pelvis possible underlying cystitis, incidental cecal thickening. High attenuation of the renal. Metastasis that may represent medullary nephrocalcinosis or underlying dehydration state. Due to above, patient will be admitted for further evaluation, care and management 11/29/24 Vital signs reviewed CBC,BMP,Calcium ordered and reviewed Discussed with director social and case management 11/30/24 Met with his at the bedside Vital signs reviewed CBC,bmp,Calcium ordered and reviewed Stress test negative 12/01/24 Vital signs reviewed Awaiting CMR or SNF IV antibiotics stopped Wbc 8.01 CBC,BMP,CALCIUM ORDERED AND REVIEWED 12/02/24 Vital signs reviewed BP 156/64 to 177/79 Prinivil increased to 20 mg daily and Norvasc 5 mg daily added Discussed with his at the bedside CBC,BMP,Calcium ordered and reviewed DC planning in progress 12/03/24 Vital signs reviewed CBC,BMP ordered and reviewed Awaiting placement Improved bp control 12/04/24 Discussed with his at the bedside Vital signs reviewed Had a 5 second pause Cardiology following CBC,BMP,CALCIUM ORDERED AND REVIEWED 12/05/24 Discussed with his and also with cardiology Beta alexandria stopped had a fib flutter today HR 110 To be evaluated for pacemaker placement CBC,BMP,Calcium Discussed with director social and case mangeemnt Review of Systems Constitutional: Positive for activity change and fatigue. HENT: Negative. Eyes: Negative. Respiratory: Negative. Cardiovascular: Negative. Gastrointestinal: Negative. Endocrine: Negative. Genitourinary: Negative. Musculoskeletal: Negative. Allergic/Immunologic: Negative. Neurological: Negative. Hematological: Negative. Psychiatric/Behavioral: Negative. OBJECTIVE: Vitals: 24hr Min/Max: Temp Min: 36.4 ??C (97.5 ??F) Max: 36.7 ??C (98.1 ??F) Pulse Min: 55 Max: 93 BP Min: 115/59 Max: 135/77 Resp Min: 14 Max: 18 SpO2 Min: 94 % Max: 97 % Most Recent : Vitals: 12/04/24 1600 12/04/24200612/04/24211412/05/24 07 BP: 127/74 135/77 BP Location: Left arm Left arm Patient Position: Lying Lying Pulse: 77 59 93 55 Resp: 18 14 Temp: 36.5 ??C (97.7 ??F) 36.7 ??C (98.1 ??F) TempSrc: Oral Oral SpO2: 96% 94% Weight: Height: I/O last 2 completed shifts: In: 680 [P.O.:680] Out: 785 [Urine:785] No intake/output data recorded. Physical Exam: Physical Exam Vitals and nursing note reviewed. Constitutional: Appearance: Normal appearance. HENT: Head: Normocephalic. Nose: Nose normal. Mouth/Throat: Mouth: Mucous membranes are moist. Eyes: General: No scleral icterus. Right eye: No discharge. Left eye: No discharge. Extraocular Movements: Extraocular movements intact. Conjunctiva/sclera: Conjunctivae normal. Pupils: Pupils are equal, round, and reactive to light. Cardiovascular: Rate and Rhythm: Normal rate and regular rhythm. Pulses: Normal pulses. Comments: Healed median sternotomy Pulmonary: Effort: Pulmonary effort is normal. Breath sounds: Normal breath sounds. No wheezing. Abdominal: General: Abdomen is flat. Bowel sounds are normal. There is no distension. Musculoskeletal: General: Normal range of motion. Cervical back: Normal range of motion and neck supple. Right lower leg: No edema. Left lower leg: No edema. Comments: Healed anterior left shoulder surgical scar Skin: General: Skin is warm. Neurological: General: No focal deficit present. Mental Status: He is alert and oriented to person, place, and time. Psychiatric: Mood and Affect: Mood normal. Behavior: Behavior normal. Lab/Radiology/Diagnostic Review: Recent Results (from the past 24 hours) CBC without differential Collection Time: 12/05/24 5:41 AM Result Value Ref Range WBC 8.00 3.80 - 9.90 K/cumm Hgb 11.7 (L) 13.0 - 17.5 g/dL Hct 36.4 (L) 38.9 - 50.3 % Plt 502 (H) 150 - 400 K/cumm MPV 9.1 9.1 - 12.3 fL RBC 4.08 (L) 4.30 - 5.80 M/cumm MCV 89.2 81.3 - 96.4 fL MCH 28.7 27.1 - 33.3 pg MCHC 32.1 (L) 32.3 - 35.7 g/dL RDW CV 14.5 11.1 - 14.9 % RDW SD 46.7 35.7 - 48.1 fL NRBC abs 0.00 0.00 - 0.01 K/cumm Basic metabolic panel Collection Time: 12/05/24 5:41 AM Result Value Ref Range Sodium 138 135 - 145 mmol/L Potassium, pl 3.5 3.3 - 4.9 mmol/L Chloride 104 97 - 110 mmol/L CO2 22 22 - 32 mmol/L Anion gap 12 2 - 15 mmol/L BUN 13 6 - 25 mg/dL Creatinine 0.77 (L) 0.80 - 1.30 mg/dL Glucose 114 70 - 199 mg/dL Calcium 9.7 8.5 - 10.3 mg/dL eGFR Collection Time: 12/05/24 5:41 AM Result Value Ref Range eGFR >90 >=60 mL/min/1.73 m2 ECG 12 lead Result Date: 11/28/2024 Narrative: Vent Rate: 51 bpm RR Interval: 1162 msec IA Interval: 258 msec QRS Duration: 118 msec QTInterval: 442 msec QTC Interval: 419 msec P-R-T [place]: -76 - 2 - 21 degrees IMPRESSION: SINUS BRADYCARDIA WITH FIRST DEGREE AV BLOCK WITH OCCASIONAL SUPRAVENTRICULAR PREMATURE COMPLEXES SEPTAL MYOCARDIAL INFARCTION , OF INDETERMINATE AGE [40+ ms Q WAVE IN V1/V2] ABNORMAL ECG NO CHANGE FROM PREVIOUS TRACING NOTED Electronically Signed By: Murphy Gaitan MD XR Chest 1 View Result Date: 11/28/2024 Narrative: EXAMINATION: XR CHEST 1 VIEW DATE: 11/28/2024 10:00 AM HISTORY: Shortness of breath heartdisease FINDINGS:Compared with the study of 11/25/2024, postsurgical changes in the heart and mediastinum with cardiomegaly. No failure fluid infiltrates or pneumothorax. Right shoulder arthroplasty Impression: Cardiomegaly. No active disease. Electronically signed by: Yordan Dai M.D. CT Chest Abdomen Pelvis WO Contrast Result Date: 11/27/2024 Narrative: EXAMINATION: CT CHEST ABDOMEN PELVIS WO CONTRAST TECHNIQUE: Computed tomographic examination the chest, abdomen and pelvis was performed with intravenous contrast using standard protocol. HISTORY: Increased white count COMPARISON:I do not have a prior study available for comparison FINDINGS: CHEST: There is reticulation at the lung bases that may represent interstitial lung abnormalities. There is no honeycombing or traction bronchiectasis. There are no pulmonary nodules or masses that would suggest primary or metastatic disease. No pleural effusion pneumothorax or focal consolidation present. There is no supraclavicular mediastinal or hilar lymphadenopathy measuring greater than10 mm. Changes compatible with prior coronary artery bypass grafting noted. There is three-vessel coronary artery calcification. There is no pericardial thickening or effusion. Abdomen pelvis: Liver pancreas and gallbladder are normal. There is bilateral renal cysts. Nonobstructing renal calculi noted bilaterally. In addition, there is high attenuation of the renal Minutes. This may represent a dehydration state or conceivably medullary nephrocalcinosis. There is diffuse atherosclerotic diseaseof the aorta and branch vessels. There is diverticulosis no acute diverticulitis. There is a thick-walled bladder with inflammatory stranding suggesting possible cystitis. Enlarged prostate gland noted. Limited evaluation of the cecum demonstrates asymmetric thickening. While this is nonspecific and could represent mucosal collapse in there is clinical concern for any underlying malignancy I would recommend further evaluation with endoscopy. Osseous windows demonstrate no lytic or blastic lesions. Multilevel degenerative disc disease noted. Impression: 1. Possible underlying cystitis. 2. Recommend follow up of the Incidental cecal thickening Additional Imaging In 1 Month with referral to gastroenterology and possible endoscopy. 3. High attenuation of the renal. Metastases that may represent medullary nephrocalcinosis or underlying dehy dration state.. Electronically signed by: Migue Falk M.D., MPH XR Chest 1 View Result Date: 11/26/2024 Narrative: EXAMINATION: XR CHEST 1 VIEW Impression: Comparison with 2024. The lung volumes are small resulting in pulmonary vascular crowding. There is no focal pneumonic consolidation pneumothorax or pleural effusion. There is a tortuous atherosclerotic aorta. There is mild cardiomegaly. Sternal wires are midline and nondisplaced. Electronically signed by: Migue Falk M.D., MPH EEG Result Date: 11/16/2024 Narrative: This EEG was performed for evaluation of an episode of unresponsiveness. This EEG was recorded during wakefulness and drowsiness using a 16 channel EEG machine utilizing the international 10 20 system of electrode placement with bipolar and monopolar montages. The EEG was characterized by a moderate amount of muscle tension and movement artifact. The patient's waking background electrical activity consists of low voltage 8-9 hertz alpha waves best seen in the posterior head regions. During periods of drowsiness 6-7 hertz theta waves of medium voltage predominate. No focal slowing paroxysmal or epileptiform activity is seen. Impression: Normal EEG during wakefulness and drowsiness. Clinical correlation is recommended. MRI Brain WO Contrast Result Date: 11/16/2024 Narrative: EXAMINATION: MRI BRAIN WO CONTRAST HISTORY: 74-year-old man strokelike symptoms history of heart disease hypertension vascular disease TECHNIQUE: Multiplanar multisequence spin-echo imagesobtained FINDINGS: Correlation is made with an MRI dated 10/25/2024, noncontrast CT of 11/15/2024 and a CTA of 11/15/2024. Stable involutional changes with large ventricles and sulci beyond expectations of the patient's age. Diffusion images abnormal with multiple punctate areas of restricted diffusion, in the centrum semi-Milligan bilaterally of the frontal and parietal regions, right occipital cortex, subfrontal right deep white matter, left occipital region. Sparing of the posterior fossa. Areas of restricted diffusion are more pronounced than on the previous study. On the FLAIR images, areas of T2 hyperintensity in the subcortical and periventricular deep white matter, larissa, bilateral occipital regions, more pronounced than previous. Periventricular and subcortical T2 hyperintensities are again seen. Area of T2 hyperintensity in the basal ganglia on the left side involving the lentiform nucleus stable. T2-weighted images demonstrate flow voids within the left vertebral artery with asmall caliber right vertebral artery incompletely seen. Basilar artery patent. Intracranial internal carotid arteries, anterior middle cerebral arteries patent. Deep venous sinuses appear to be patent. Bilateral cataract surgery. Paranasal sinuses and mastoid air cells normally pneumatized. Susceptibility images demonstrate a punctate hemosiderin stain in the medulla dorsally, the right occipitalregion, small area in the left occipital region, left frontal region, right parietal lobe, left frontal lobe. Impression: Multiple acute infarcts bilaterally with restricted diffusion. Multi vascular distribution raise the possibility of either embolic phenomenon versus watershed infarcts. Significant atrophy and small vessel disease. Old hemorrhagic changes. Electronically signed by: Yordan Dai M.D. CTA/CTP Rapid Stroke (C) Result Date: 11/15/2024 Narrative: EXAMINATION: Computed tomography angiography (CTA) of the head with contrast; Computed tomography angiography (CTA) of the neck with contrast. CT perfusion imaging of the head with contrast HISTORY: Suspected hyperacute stroke. 74-year-old man unresponsive history of hypertension TECHNIQUE: . Computed tomographic angiography was obtained from the level of the aortic arch to the vertex following the uneventful administration of intravenous contrast according to hyperacute stroke protocol. 3D images were generated on a dedicated workstation. CT perfusion of the brain was performed with intravenous contrast using a separate data acquisition. The data was transmitted to a separate wor kstation for processing by RAPID software ([employer]) to produce automated calculations of the estimated cerebral blood flow and Tmax. Contrast information: 120 mL Optiray-350 COMPARISON: 10/25/2024 and a CAT scan without contrast earlier today. FINDINGS: HEAD CT FINDINGS: Source images demonstrate stable involutional changes with mild prominence of the ventricles and sulci. Normal vascular enhancement is seen within the deep venous sinuses and [place]. No definitive oligemic areas are seen. No abnormal intracranial enhancement is seen. Great vessels the neck are patent with dominance of the left vertebral artery. Calcification is seen at the carotid bifurcations and cavernous carotid arteries. Aortic arch calcifications are seen without aneurysmal dilatation or dissection. Coronary artery calcifications are noted. Lung apices demonstrate no abnormalities. 2-D and 3-D images:ANGIOGRAPHIC FINDINGS: The visualized aortic arch appears normal with normal configuration of the great vessels. There is no significant stenosis of the origins of the great vessels. There is no geographic area of vascular paucity in the brain. Left anterior circulation: L CCA: no occlusion or significant stenosis. Extensive calcification at the bifurcation extending into the proximal internal carotid artery with no hemodynamically significant stenosis. L carotid bifurcation: no occlusion or significant stenosis L ICA proximal: no occlusion or significant stenosis L ICA distal: no occlusion or significant stenosis L ICA terminus: Atherosclerotic calcifications without high-grade stenosis. LM1: no occlusion or significant stenosis L M2 branches: Dense calcifications with irregularity with mild nonhemodynamically significant stenosis of the trifurcation L A2: no occlusion or significant stenosis. Hypoplastic A1 segment with patent anterior communicating artery. Right anterior circulation: R CCA: Atherosclerotic calcifications without high-grade stenosis. R carotid bifurcation: Atheros clerosis without hemodynamically significant stenosis R ICA proximal: Tortuosity without stenosis LUIS distal: no occlusion or significant stenosis R ICA terminus: Atherosclerotic calcifications without high-grade stenosis R M1: no occlusion or significant stenosis R M2 branches: no occlusion or significant stenosis R A2: no occlusion or significant stenosis. Anterior communicating artery patentPosterior circulation: L Vertebral Artery: no occlusion or significant stenosis. Dominant left vertebral artery. R Vertebral Artery: There is irregularity with multiple areas of moderate stenosis intracranially Basilar Artery: no occlusion or significant stenosis L CODING CLERK: no occlusion or significant stenosis hypoplastic P1 segment with patent posterior communicating artery R CODING CLERK: Hypoplastic P1 segment patent posterior communicating artery No cerebral aneurysm is seen. There is no evidence for anarteriovenous malformation. There is no suspicious cervical lymphadenopathy. There is no significant cervical spondylosis. Limited views of the lung apices are normal. CT Perfusion: Estimated ischemic core volume (rCBF < 0.3): 7 mL Estimated hypoperfusion volume (Tmax > 6 sec): 7 mL Hypoperfusion index 0.5. Mismatch volume 0. Mismatch ratio 1.0. Impression: No CT evidence of stroke. No significant carotid artery stenosis. Diffuse arteriosclerosis. 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 Electronically signed by: Yordan Dai M.D. CT Stroke Head WO Contrast Result Date: 11/15/2024 Narrative: EXAMINATION: CT STROKE HEAD WO CONTRAST dated 11/15/2024 7:20 AM. HISTORY: Code stroke 74-year-old man history of hypertension vascular disease heart disease. FINDINGS: Comparison is made with an MRI dated 10/25/2024. Additionally patient has a CAT scan from 10/25/2024. Lien Searcher radiograph de monstrates no acute findings. Transaxial images demonstrate stable involutional changes with large ventricles and sulci beyond expectations of the patient's age. Extensive periventricular lucencies reflect chronic microvascular disease. Since the previous CAT scan interval development of area of low CT attenuation in the right parieto-occipital lobe. Small area seen on the left parieto- occipital lobe. No hemorrhagic findings. No midline shift. Arteriosclerosis. Craniovertebral junction normal. Normal pituitary fossa. Mucosal thickening in the floor the maxillary sinuses. No bony abnormalities Impression: ATROPHY SMALL VESSEL DISEASE ATHEROSCLEROSIS. DEVELOPMENT OF OCCIPITAL INFARCTS GREATERON THE RIGHT THAN THE LEFT WHICH WAS SEEN ON THE PREVIOUS MRI. NO HEMORRHAGIC CHANGES Electronically signed by: Yordan Dai M.D. XR Chest 1 View Result Date: 2024 Narrative: EXAMINATION: XR CHEST 1 VIEW HISTORY: The patient is a 74-year-old male who presents with shortness of breath. Comparison made with the previous study dated 10/25/2024. TECHNIQUE: AP portable view of the chest. FINDINGS: Lungs clear. Cardiovascular structures unremarkable. Impression: No active disease. Electronically signed by: Solis Stahl M.D. XR Knee Left 1 or 2 Views Result Date: 11/11/2024 Narrative: EXAMINATION: XR KNEE LEFT 1 OR 2 VIEWS HISTORY: Pain FINDINGS: Severe degenerative changes involving the medial joint space. No fracture or dislocation. No effusion. Vascular calcifications Impression: Significant degenerative changes Electronically signed by: Yordan Dai M.D. ECG 12 lead Result Date: 11/08/2024 Narrative: Vent Rate: 60 bpm RR Interval: 989 msec IA Interval: 269 msec QRS Duration: 107 msec QT Interval: 418 msec QTC Interval: 419 msec P-R-T [place]: 69 - -9 - -3 degrees IMPRESSION: SINUS RHYTHM WITH FIRST DEGREE AV BLOCK WITH OCCASIONAL VENTRICULAR PREMATURE COMPLEXES ABNORMAL ECG Electronically Signed By: Gerard Bauer MD XR Kub Result Date: 10/31/2024 Narrative: EXAMINATION: XR KUB HISTORY: The patient is a 73-year-old male who presents with constipation. TECHNIQUE: Supine view of the abdomen. FINDINGS: Moderate fecal impaction seen in the left colon. No dilated small or large bowel loops. Impression: Fecal impaction. Electronically signed by: Solis Stahl M.D. apixaban, 5 mg, BID atorvastatin, 80 mg, QAM cetirizine, 10 mg, QAM clopidogreL, 75 mg, Daily ezetimibe, 10 mg, Daily famotidine, 20 mg, BID ferrous sulfate, 65 mg of elemental iron, BID with meals (bkfst, dinner) fluticasone propionate, 1 spray, QAM folic acid, 1 mg, Daily lisinopriL, 20 mg, Daily magnesium oxide, 400 mg, BID megestrol, 400 mg, Daily metoprolol tartrate, 12.5 mg, BID tamsulosin, 0.4 mg, Daily with dinner thiamine, 100 mg, Daily ASSESSMENT/PLAN: Principal Problem: Fever and chills Active Problems: Moderate protein-calorie malnutrition Possible sepsis Leukocytosis and fever on admission Wbc 33.5 on 11/27/24,20.83 ON 11/28/24, 12.2 ON 11/29/24 AND 9.18 ON 11/30/24 Fever weakness with possible underlying infection of unclear etiology. On cefepime and vancomycin for now. BC pending , resp panel negative , urine with no UTI. CXR with no clear infiltrates. Chest pain will send EKD, troponin series and have cardiology to see. CAD with CABG and stents on ASA , high intensity statin and metoprolol xl. PCI Jun 2024 for complex stenosis of the RCA History of CVA on statin and ASA. Chronic atrial fibrillation on apixaban , metoprolol . Urinary retention on tamsulosin has a urinary catheter now , will need urology as outpatient if fails voiding trial. HTN on lisinopril, metoprolol. Normocytic anemia mild with no active bleeding Moderate Malnutrition Apetite stimulant Mild hyponatremia will trend levels for now. [] I confirmed that the patient's Advance Care Plan is present, code status is documented, or surrogate decision maker is listed in the patient's medical record. Son Card MD * Thursday, SelmaboydINA - 12/05/2024 10:28 AM CDT Occupational Therapy NOTE / SESSION TYPE: DAILY PROGRESS / TREATMENT Patient's Name: Ayad Shipman Age / Sex: 74 y.o. / male Room: [place] [id number] : 1950 Date of service: 12/05/24 TIME IN: 1028 TIME OUT: 1139 Patient Active Problem List Diagnosis Chronic rhinitis Coronary atherosclerosis Essential hypertension Hyperlipidemia Nocturia Wax in ear Diplopia Dizziness and giddiness Rotator cuff arthropathy of right shoulder Anemia Glenohumeral arthritis, right Paresthesia History of stroke Intracranial vascular stenosis Acute CVA (cerebrovascular accident) ([facility]) Altered mental status CVA (cerebrovascular accident due to intracerebral hemorrhage) ([facility]) Episode of unresponsiveness Sepsis ([facility]) Fever and chills Moderate protein-calorie malnutrition Past Medical History: Diagnosis Date Dizziness Hyperlipidemia Hypertension Loss of balance Nocturia Visual disturbance Past Surgical History: Procedure Laterality Date ANKLE SURGERY CORONARY ARTERY BYPASS GRAFT 2005 x4 on Plavix HEART SURGERY LASIK ORAL SURGERY Precautions (including weight-bearing): Fall risk and Bed / chair alarm Subjective: Pt said I would like to wash my hair too Therapy Pain: Pre-therapy pain level: 0 /10 Pain location: No pain - Location N/A Pain Intervention(s): Pain medication administered prior to session Post-therapy pain level: 0 /10 Pain scale reference: 0-10 SCALE Objective: Appearance: Presentation upon OT arrival: Patient Supine with head of bed elevated Presentation upon OT departure: Patient Supine with head of bed elevated Bed / Chair alarm in place and activated upon OT departure: Yes Call light within arms reach of patient at end of session: Yes Completed patient handoff and notified PATENT CLERK / RN, name: Wendy , of patient's location and functionalstatus upon completion of session VITAL SIGNS: Heart rate at rest: 119 BPM Heart rate with activity: 121 BPM O2 saturations at rest: 98 % O2 saturations with activity: 98 % Oxygen LPM: room air Cognitive / Perceptual: A & O x 4 Mobility / Transfers: Bed Mobility: supine to sit at EOB requring mod assist for trunk and L LE management . Transfer(s): sit to stand at EOB/ bed side recliner requring mod/min assist x 2 person. Pt performed stand piviot transfer from at EOB to bed side recliner with use of w/w requiring mod/min assist x 2 for safety and balance. with min vc???s sequencing and waker management. due to leaning posteriorly and unable to hold w/w down. Living Skills / Other Activities: Bathing: Patient completed spongebathing including all components while Sitting on EOB and Standing at EOB with overall Maximal assistance. Patient required assistance for right arm, buttocks, left lower leg,including foot, right lower leg, including foot, physical assistance for balance, verbal cue(s), sequencing, set- up of items, increased time to complete, and safety. UE dressing: Patient completed upper body dressing of Hospital gown while Sitting on EOB with overall Moderate assistance. Patient required assistance for pulling around back, fasteners, verbal cue(s), sequencing, set-up of items, increased time to complete, safety, and breast puller the shoulder . Footwear: Patient completed footwear of Sock(s) while Sitting on EOB with overall Moderate assistance. Patient required assistance for verbal cue(s), sequencing, set-up of items, increased time to complete, safety, and threading socks on to feet. Caregiver Present: Yes: Education & Training Provided: Role of OT, OT plan of care, ADL training, Bed mobility training, Functional transfer training, Balance training, Safety education, Pursed lip breathing / Relaxation techniques, Energy conservation education, and Visual / Perceptual skills Assessment: Activity tolerance / response to OT session: frequent , GOOD PARTICIPATION, GOOD MOTIVATION, RECEPTIVE TO EDUCATION / TRAINING, frequent REST BREAKS REQUIRED, and INCREASED TIME FOR TASK COMPLETION SECONDARY TO fatigue Progress towards goals: Please refer to care plan from this date for progress towards individual goals Plan: Therapy Plan: Rehab Potential (Prognosis): good OT Recommendations This Date: OT RECOMMENDATIONS: OT Recommendation: Inpatient Rehab Facility Flow sheet updated and OT Consultation in Regards to Change in Discharge Recommendations: YES /NO: No Additional recommendation comments: Recommend Inpatient Rehab/Acute Rehab due to: Ability to actively participate in intensive therapy 3 hours/day, 5 days/week or 900 minutes per week, Highly motivated to participate in therapy, Not at baseline due to impaired ability to complete ADLs, Impaired ability to complete functional mobility, Likely to return to the community at discharge with support system in place, Requires greater than 25% physical assistance with most mobility tasks, Requires greater than 25% physical assistance with most ADL tasks, Requires multiple therapy disciplines to address functional deficits Frequency of therapy:OT Frequency during current admission: 3-5x/wk If this is the last note, consider this the discharge summary [place] ThursdayINA 12/05/24 Cosigned by Briana Perez, OT at 12/05/2024 1:27 PM CDT * Carole Sharma, RD - 12/05/2024 9:28 AM CDT NUTRITION ASSESSMENT Nutrition Status: Patient meets criteria for moderate acute malnutrition, reference AAIM (ASPEN) guidelines. Present on Admission: Yes REASON FOR ASSESSMENT: Follow Up Encounter Date: 12/05/24 9:28 AM Admission Date: 11/27/2024 LOS: 8 days HPI: Patient is a 74 y.o. male with past medical history of CVA on 10/23, CAD s/p CABG, atrial fibrillation, urinary retention, hyperlipidemia, diplopia and hypertension who presented as a direct admit from [facility] after being noted with fevers overnight, elevated WBCs up to 33, incontinence of urine and fatigue. Of note, patient was recently admitted here at [facility] on 11/15 and transferred to rehab on 11/18 after being treated for possible UTI with cefdinir until 11/24. Currently patient reports ongoing fatigue and generalized weakness. He denies any other associated symptoms. Denies chest pain, SOB, abdominal pain, constipation, diarrhea, dysuria, chills or fever. Initial workup showed urinalysis being negative after recently being treated with cefdnir. CT chestabdomen pelvis possible underlying cystitis, incidental cecal thickening. High attenuation of the renal. Metastasis that may represent medullary nephrocalcinosis or underlying dehydration state. CMR Nutrition Interval (10/29-11/15): 10/29: Continue regular diet. Offered modified texture diet but patient denied. May need help with meal ordering and cutting up and opening food items. Placed a note for the diet office. Obtained menu for patient. 11/03: Finger food preference added 11/10: Continue regular diet. IP Interval (11/15-11/18): 11/15: Continue current diet. Start ensure high protein chocolate bid. HH education not appropriate at this time. Lipids WDL CMR Nutrition Interval (11/18-12/01: 11/19: Continue regular diet. Modified ONS from Ensure High PRO to Gelatein Plus bid for trial. Pt interested In Thrive. Will order once available. 11/23: Continue regular diet with Gelatein Plus bid and Thrive daily. IP Interval (12/01- present) 12/01/24: continue current diet. Resume Gelatein Plus BID and Thrive daily. Pt may benefit from NFPE 12/05: Malnutrition assessment complete. Recommend advancing diet to regular as medically appropriate. Discontinue Thrive and Gelatein Plus per pt request. Encouraged pt to have visitors bring in food/snacks to increase po intakes. Recommend considerations for appetite stimulant as medically appropriate. Objective Past Medical History: Diagnosis Date Dizziness Hyperlipidemia Hypertension Loss of balance Nocturia Visual disturbance Past Surgical History: Procedure Laterality Date ANKLE SURGERY CORONARY ARTERY BYPASS GRAFT 2004 x4 on Plavix HEART SURGERY LASIK ORAL SURGERY Social History Tobacco Use Smoking status: Former Current packs/day: 0.00 Types: Cigarettes Quit date: 1999 Years since quittin.5 Smokeless tobacco: Never Substance and Sexual Activity Drug use: Yes Types: Alcohol Sexual activity: Not Currently Partners: Female Alcohol Use: Alcohol Misuse (11/18/2024) AUDIT-C Frequency of Alcohol Consumption: 4 or more times a week Average Number of Drinks: 3 or 4 Frequency of Binge Drinking: Never MEDICATION/LAB REVIEW: Scheduled Meds: apixaban, 5 mg, oral, BID atorvastatin, 80 mg, oral, QAM cetirizine, 10 mg, oral, QAM clopidogreL, 75 mg, oral, Daily ezetimibe, 10 mg, oral, Daily famotidine, 20 mg, oral, BID ferrous sulfate, 65 mg of elemental iron, oral, BID with meals (bkfst, dinner) fluticasone propionate, 1 spray, each nostril, QAM folic acid, 1 mg, oral, Daily lisinopriL, 20 mg, oral, Daily magnesium oxide, 400 mg, oral, BID metoprolol tartrate, 12.5 mg, oral, BID tamsulosin, 0.4 mg, oral, Daily with dinner thiamine, 100 mg, oral, Daily Continuous Infusions: PRN Meds: acetaminophen lubricant docusate sodium hydrOXYzine ondansetron ramelteon sodium chloride 0.9% Recent Labs Lab Units 12/05/24 0541 SODIUM mmol/L 138 POTASSIUM PLASMA mmol/L 3.5 CHLORIDE mmol/L 104 CO2 mmol/L 22 BUN SERUM mg/dL 13 CREATININE mg/dL 0.77* QFP-ROS-DUNLIOS mL/min/1.73 m2 >90 CALCIUM mg/dL 9.7 Recent Labs Lab Units 12/05/24 0541 12/04/24 0647 12/03/24 0623 12/02/24 0650 12/01/24 0424 11/30/24 0509 11/29/24 0613 GLUCOSE mg/dL 114 120 103 99 107 106 112 No results found for: ALT, AST, BILIRUBIN, ALKPHOS, LIPASE Lab Results Component Value Date HGBA1C 6.1 (H) 10/26/2024 HDL 62 10/26/2024 LDLCALC 58 10/26/2024 CHOL 135 10/26/2024 TRIG 77 10/26/2024 NURSING ASSESSMENT: Last BM Date: 12/03/24 Bowel Sounds (All Quadrants): Active Rajan Scale Score: 16 Skin Integrity: Intact Edema: No pitting Vital Signs BP: 135/77 Temp: 36.7 ??C (98.1 ??F) Pulse: 55 Resp: 14 SpO2: 94 % Intake/Output Summary (Last 24 hours) at 12/05/2024 0928 Last data filed at 12/05/2024 0315 Gross per 24 hour Intake 560 ml Output 785 ml Net -225 ml Adult Malnutrition Scoring Tool (MST) What diet do you follow at home?: Regular Have You Recently Lost Weight Without Trying?: No Have you been eating poorly because of a decreased appetite?: No Malnutrition Screening Tool (MST) Score: 0 Within the past 12 months, you worried that your food would run out before you got the money to buymore.: Never true Within the past 12 months, the food you bought just didn't last and you didn't have money to get more.: Never true Anthropometrics Weight: 71.6 kg (157 lb 13.6 oz) Admission Weight : 71.6 kg Weight Change: 0.03 kg (0.08 lbs) IBW/kg (Calculated) : 67.1 kg Height: 170.2 cm (5' 7) Weight in (lb) to have BMI = 25: 159.3 BMI (Calculated): 24.7 BMI Classification: BMI 18.5 - 24.9 Normal Weight Wt Readings from Last 10 Encounters: 12/01/24 71.6 kg (157 lb 13.6 oz) 11/26/24 71 kg (156 lb 8.4 oz) 11/17/24 81.6 kg (179 lb 14.3 oz) 11/15/24 82.1 kg (181 lb) 11/13/24 82.5 kg (181 lb 14.1 oz) 10/28/24 77.1 kg (169 lb 15.6 oz) 08/31/24 77.1 kg (170 lb) 06/28/24 77.1 kg (170 lb) 04/19/24 77.1 kg (170 lb) 02/19/24 77.1 kg (170 lb) ESTIMATED NEEDS: Total Energy Needs: 1833 kcal Total Energy Needs + Fever Factor: 1833 Equation Chosen to Use by RD:Jose Luis Estevez Activity Factor: 1.3 Weight Used for Equation Calculations (RD Determined): 71.6 kg(157 lb 13.6 oz) Total Kcal/kg Estimated Needs : 2148 Kcal/k. Type of Weight Used for Estimated Kcals: Current Total Protein Estimated Needs (gm): 85.92 Protein Needs Based on g/k.2 Type of Weight Used for Estimated Protein : Current Total Fluid Estimated Needs: 1790 Fluid Needs Based on : 25 ml/kg Type of Weight Used for EstimatedFluid Needs: Current Dietary Orders (From admission, onward) Start Ordered 12/05/24 0001 NPO Diet Diet effective midnight 12/04/24 1438 12/02/24 1100 Oral Nutrition Supplements () Select Supplement: Thrive - Any Flavor With Lunch Question: () Select Supplement: Answer: Thrive - Any Flavor 12/01/24 1310 12/01/24 1700 Oral Nutrition Supplements () Select Supplement: Gelatein Plus With Breakfast and Dinner Question: () Select Supplement: Answer: Gelatein Plus 12/01/24 1310 Allergies: Reviewed. IMPRESSION: Pt currently NPO for unspecified reason and has been NPO since midnight. Pt had previously been on regular diet w inconsistent po intakes, averaging 63% intakes since admit back to inpatient. Has continued to have Gelatein Plus ordered bid and Thrive which pt had 50% x 2 of gelatein plus recorded and 100% x 1 of Thrive. Pt reported has mostly been refusing ONS. Denied N/V/D/C currently. GI WNL. Skin intact. Due to poor intakes through hospitalization and findings on NFPE, pt meets criteria for moderate, acute malnutrition. AAIM (ASPEN) MALNUTRITION ASSESSMENT: Date of completion: 12/05 ASPEN/AND Malnutrition Screening: Acute illness or injury mild/moderate Energy Intake: < 75% energy intake compared to estimated energy needs > 7 days Subcutaneous Fat Loss Severity: Mild/Moderate Muscle Mass Loss Severity: Mild/Moderate Patient Meets Criteria for Moderate Malnutrition: Yes NUTRITION FOCUSED PHYSICAL EXAM: Completed, physical findings below. Subcutaneous Fat Loss Orbital Region - Surrounding the Eye: Loose skin Cheek Region - Buccal Fat: Somewhat sunken appearance Muscle Loss [place] Region - Temporalis Muscle: Can see/feel well-defined muscle Clavicle Bone Region - Pectoralis Major, Deltoid, Trapezius Muscles: Not visible in male, visible but not prominent in female Clavicle and Acromion Bone Region - Deltoid Muscle: Rounded, curves at arm/shoulder/neck Scapular Bone Region - Trapezius, Supraspinus, Infraspinus Muscles: Patient not able to participate Dorsal Hand - Interosseous Muscle: Slightly depressed Anterior Thigh and Patellar Region - Quadricep Muscle: Decrease in muscle tone/resistance Posterior Calf Region - Gastrocnemius Muscle: Well-developed bulb of muscle NUTRITION DIAGNOSIS: Nutrition Diagnosis 1: Protein-Calorie Malnutrition - Moderate Related to: Acute illness/injury Evidenced by: Inadequate energy intake, Subcutaneous fat loss, Muscle loss INTERVENTION(S): Summary: Assess for nutrition changes, Follow up per policy, Encouragement, Discontinue supplement,NFPE Malnutrition assessment complete. Recommend advancing diet to regular as medically appropriate. Discontinue Thrive and Gelatein Plus per pt request. Encouraged pt to have visitors bring in food/snacks to increase po intakes. Recommend considerations for appetite stimulant as medically appropriate. GOAL(S): Adequate nutrition to meet estimated needs by next assessment, Oral intake to meet 75% estimated nutritional needs by next assessment, Tolerance of medical food supplement by next assessment, Diet consistency appropriate for patient needs during stay MONITORING/EVALUATION: Appetite, Blood glucoses, Plan of care, Labs, PO intake, Diet-related questions, Discharge plans, Electrolyte changes, Food preferences, Hydration status, I/O, Wound healing, Weight changes, Stool patterns, Diet advancement Diet Instructions Continue to follow a heart healthy diet that is low in sodium, trans fat and saturated fat. Read the nutrition facts label on packages. Aim to eat less than 2,000mg sodium per day (about 500-700 mg per meal). Do not add salt to foods and avoid foods that are high sources of sodium, such as fast foods, fried/breaded foods, canned goods, deli meats and gravies/sauces. Increase your intake of foods high in fiber, such as whole grains, fruits and vegetables. For questions, can call [facility] Dietitian's Office at [phone]. Additional resources available online from the [place] [employer] at www.heart.org/en/healthy-living/healthy-eating Carole Sharma MS, SOCO, LD * Sage Tlilman MD - 12/05/2024 9:15 AM CDT [facility] - Cardiology [facility] Progress Note Admit Date: 11/27/2024 9:48 AM @EDAYS@ PCP: Raquel Callejas MD Patient seen and examined Chart , telemtry reviewed Symptoms Patient denies chest pain, dyspnea, palpitations, sweating or syncope. Data Vitals: 12/04/24 1600 12/04/24 2007 12/04/24 2115 12/05/24 0738 BP: 127/74 135/77 BP Location: Left arm Left arm Patient Position: Lying Lying Pulse: 77 59 93 55 Resp: 18 14 Temp: 36.5 ??C (97.7 ??F) 36.7 ??C (98.1 ??F) TempSrc: Oral SpO2: 96% 94% Weight: Height: Intake/Output Summary (Last 24 hours) at 12/05/2024 0915 Last data filed at 12/05/2024 0315 Gross per 24 hour Intake 560 ml Output 785 ml Net -225 ml Lab Results Component Value Date WBC 8.00 12/05/2024 WBC 8.73 12/04/2024 WBC 8.34 12/03/2024 HGB 11.7 (L) 12/05/2024 HGB 11.7 (L) 12/04/2024 HGB 11.1 (L) 12/03/2024 HCT 36.4 (L) 12/05/2024 HCT 35.3 (L) 12/04/2024 HCT 34.5 (L) 12/03/2024 Lab Results Component Value Date SODIUM 138 12/05/2024 SODIUM 137 12/04/2024 SODIUM 136 12/03/2024 POTASSIUM 3.5 12/05/2024 POTASSIUM 3.7 12/04/2024 POTASSIUM 3.6 12/03/2024 CHLORIDE 104 12/05/2024 CHLORIDE 102 12/04/2024 CHLORIDE 102 12/03/2024 CO2 22 12/05/2024 CO2 21 (L) 12/04/2024 CO2 22 12/03/2024 CREATININE 0.77 (L) 12/05/2024 CREATININE 0.76 (L) 12/04/2024 CREATININE 0.76 (L) 12/03/2024 GLUCOSE 114 12/05/2024 GLUCOSE 120 12/04/2024 GLUCOSE 103 12/03/2024 CALCIUM 9.7 12/05/2024 CALCIUM 9.4 12/04/2024 CALCIUM 9.3 12/03/2024 No results found for: PTT No results found for: PT No results found for: INR No results found for: BNP No components found for: TROPONIN No results found for: CHOL, TRIG, HDL, LDLCALC No results found for: ALBUMIN, ALKPHOS, ALT, AST No components found for: MAGMGDL No results found for: TSH No results found for: T3FREE No results found for: [id number] Pain Assessment: 0-10 Pain Score: 2 Patient's Stated Pain Goal: No pain Meds MEDICATIONS FOR CURRENT ENCOUNTER: SCHEDULED MEDICATIONS: Scheduled Medications Medication Dose Route Frequency amLODIPine (NORVASC) tablet 5 mg 5 mg oral Daily apixaban (ELIQUIS) tablet 5 mg 5 mg oral BID atorvastatin (LIPITOR) tablet 80 mg 80 mg oral QAM cetirizine (ZyrTEC) tablet 10 mg 10 mg oral QAM clopidogreL (PLAVIX) tablet 75 mg 75 mg oral Daily ezetimibe (ZETIA) tablet 10 mg 10 mg oral Daily famotidine (PEPCID) tablet 20 mg 20 mg oral BID ferrous sulfate delayed release tablet 65 mg of elemental iron 65 mg of elemental iron oral BID with meals (bkfst, dinner) fluticasone propionate (FLONASE) 50 mcg/actuation nasal spray 1 spray 1 spray each nostril QAM folic acid (FOLVITE) tablet 1 mg 1 mg oral Daily lisinopriL (PRINIVIL,ZESTRIL) tablet 20 mg 20 mg oral Daily magnesium oxide (MAG-OX) tablet 400 mg 400 mg oral BID [Held by Provider] metoprolol tartrate (LOPRESSOR) immediate release tablet 12.5 mg 12.5 mg oral BID tamsulosin (FLOMAX) extended release capsule 0.4 mg 0.4 mg oral Daily with dinner thiamine (VITAMIN B-1) tablet 100 mg 100 mg oral Daily CONTINUOUS MEDICATIONS: Continuous Medications Medication Dose Last Rate PRN MEDICATIONS: PRN Medications Medication Dose Route Frequency Last Admin acetaminophen (TYLENOL) tablet 650 mg 650 mg oral Q6H PRN 650 mg at 12/04/24 0906 artificial tears (chkirzv-kvbwlnawwcft-cvgmyjxu) (GENTEAL TEARS MODERATE) 0.1-0.3-0.2 % ophthalmic solution 1 drop 1 drop each eye QID PRN 1 drop at 12/04/24 0857 docusate sodium (COLACE) capsule 100 mg 100 mg oral BID PRN 100 mg at 12/03/24 2108 hydrOXYzine (ATARAX) tablet 25 mg 25 mg oral Q4H PRN 25 mg at 12/04/24 215 ondansetron (ZOFRAN) injection 4 mg 4 mg intravenous Q4H PRN 4 mg at 11/30/24 203 ramelteon (ROZEREM) tablet 8 mg 8 mg oral Nightly PRN 8 mg at 12/04/24 2153 sodium chloride 0.9% flush 10 mL 10 mL intravenous PRN 10 mL at 11/29/24 1308 Allergies Allergen Reactions Meperidine Vomiting, Other (See comments) and Nausea & Vomiting Review of Systems: All systems were reviewed. Pertinent positives are mentioned above. Exam General appearance: alert, cooperative, no distress Neck: No JVD. No carotid Bruit Chest: Adequate air entry bilaterally,No added sounds Cardiovascular: regular rate, rhythm, normal S1 and S2, without rub, gallops PSM 2/ Abdomen: soft without mass, non-tender, with normal bowel sounds Extremities: no clubbing, cyanosis or edema. Peripheral pulse palpable Assessment /Plan Chest tightness -EKG with no acute changes -hx of CAD as noted below Stress test was within normal limits no additional cardiac testing is indicated CAD s/p CABG -last cath 06/2024 -s/p PCI 06/2024 with complex stenosis in the RCA -patient with chest tightness on admit, stress test this afternoon for stratification HTN -episodes of elevated BP -monitor and adjust meds as needed History of Afib -On apixaban 5 mg twice daily -has had recurrent RVR off BB. Metoprolol resumed on 12/03 at 12.5 mg BID. Has been having pauses up to 2.5 seconds will closely monitor. There is no indication for pacemaker at present Dyslipidemia -On atorvastatin and Zetia LDL cholesterol is acceptable Hx of CVA -continue statin/Plavix Confusion hospitalists are managing Sage Tillman MD * Chava Muhammad PTA - 12/05/2024 8:23 AM CDT Physical Therapy PT PROGRESS NOTE PATIENT'S NAME:Ayad Shipman :1950 AGE:74 y.o. ROOM:[facility]/[place] [id number] Past Medical History: Diagnosis Date Dizziness Hyperlipidemia Hypertension Loss of balance Nocturia Visual disturbance Past Surgical History: Procedure Laterality Date ANKLE SURGERY CORONARY ARTERY BYPASS GRAFT 2005 x4 on Plavix HEART SURGERY LASIK ORAL SURGERY Patient Active Problem List Diagnosis Chronic rhinitis Coronary atherosclerosis Essential hypertension Hyperlipidemia Nocturia Wax in ear Diplopia Dizziness and giddiness Rotator cuff arthropathy of right shoulder Anemia Glenohumeral arthritis, right Paresthesia History of stroke Intracranial vascular stenosis Acute CVA (cerebrovascular accident) (HCC) Altered mental status CVA (cerebrovascular accident due to intracerebral hemorrhage) (HCC) Episode of unresponsiveness Sepsis (HCC) Fever and chills TIME IN: 823 TIME OUT: 846 SUBJECTIVE I am not doing well MENTAL STATUS/ORIENTATION: alert and oriented x4 PAIN: Pre-therapy pain level: 0/10 Pain location: n/a Pain intervention: not needed Post-therapy pain level/response to intervention: 0/10 OBJECTIVE PRECAUTIONS: fall and bed / chair alarm APPEARANCE/POSTURE: Pt supine w/ HOB elevated, on room air, in no distress, call light in reach, bed alarm activated, and pt pleasantly agreeable to therapy MOBILITY DOCUMENTATION: Bed Mobility: SBA of 1 for sit to and from supine w/ increased time and difficulty to complete Transfers: Mod assist of 1 for sit to stand w/ posterior lean present. Mod assist of 1 for stand tosit w/ verbal cues ot let go of device when sitting Gait: 30ft x 1 using wheeled walker- Mod assist of 1. Pt demonstrated posterior leaning, ataxic stepping bilaterally, variable step length bilat, downward gaze, and decreased heel strike/push off bilaterally TREATMENT: LE seated exercises: ankle pumps, marches, LAQ's, hip IR/ER, and hip ADD ball squeezes. 10 reps bilaterally. Min assist of 1 APPEARANCE/POSTURE (end of session): appearance otherwise unchanged from PT arrival in room HANDOFF: Verbal handoff given to RN Wendy . ALARMS: Bed alarm in place / active EDUCATION:bed mobility , therapeutic activity, therapeutic exercises , functional transfer training, gait training , endurance training, safety , and durable medical equipment education RESPONSE TO EDUCATION: needs reinforcement ASSESSMENT Activity tolerance/response to P.T.: Pt tolerated gait and exercise without any voiced complaints. Pt continues to demonstrate posterior lean in standing. Pt required physical assist for management of device when ambulating Barriers to learning: Physical and Visual Barriers to discharge: Limited family support, Cognitive deficit, Limited safety awareness, Decreased endurance, Decreased proprioception, Upper extremity weakness, Lower extremity weakness, Long standing deficits, Impaired vision, Incontinence of bladder, Medical complications, and Stairs at home Patient continues progressing toward previously set goals which remain appropriate at this time. PLAN PT Discharge Recommendations this date: PT Recommendation/Plan: Inpatient Rehab Facility Patient at high risk for: Falls, Readmission, Injury due to decreased ability to care for self, Injury due to reduced functional status, Injury due to balance deficits, Injury at home as patient has not returned to prior level of function Recommend Inpatient Rehab/Acute Rehab due to: Ability to actively participate in intensive therapy 3 hours/day, 5 days/week or 900 minutes per week, Highly motivated to participate in therapy, Not atbaseline due to impaired ability to complete ADLs, Impaired ability to complete functional mobility, Likely to return to the community at discharge with support system in place, Requires greater than25% physical assistance with most mobility tasks, Requires greater than 25% physical assistance with most ADL tasks, Requires multiple therapy disciplines to address functional deficits, Patient and caregiver require specialized skilled training due to new level of function/diagnosis, Requires skilled therapy interventions to address neurological deficits PT Frequency during current admission: Daily CARE PLAN Multi-Disciplinary Problems (from Physical Therapy) Active Problems Problem: PT Misc Start Date: 11/28/24 Goal Start Date Expected End Date End Date PT LTG - perform sup to sit with min A Progressing 11/28/24 12/05/24 -- Goal Start Date Expected End Date End Date PT LTG - perform sit to stand with min A Progressing 11/28/24 12/05/24 -- Goal Start Date Expected End Date End Date PT LTG - perform gait with wh walker 50 feet with min A Progressing 11/28/24 12/05/24 -- Goal Start Date Expected End Date End Date PT LTG -perform sitting balance with good balance dynamic x 5 min Progressing 11/28/24 12/05/24 -- Goal Start Date Expected End Date End Date PT LTG - perform bed to chair transfer with min A of 1 Progressing 12/01/24 12/08/24 -- If this is the last note, please consider this the discharge summary. Cosigned by Beatriz Kimball PT at 12/05/2024 12:19 PM CDT * Son Card MD - 12/04/2024 3:25 PM CDT General Medicine Daily Progress SUBJECTIVE: Chief complaint of Fever and chills. Interval History: Chart reviewed and Pt examined Admit HPI Patient is a 74 y.o. male with past medical history of CVA on 10/23, CAD s/p CABG, atrial fibrillation, urinary retention, hyperlipidemia, diplopia and hypertension who presented as a direct admit from [facility] after being noted with fevers overnight, elevated WBCs up to 33, incontinence of urine and fatigue. Of note, patient was recently admitted here at [facility] on 11/15 and transferred to rehab on 11/18 after being treated for possible UTI with cefdinir until 11/24. Currently patient reports ongoing fatigue and generalized weakness. He denies any other associated symptoms. Denies chest pain, SOB, abdominal pain, constipation, diarrhea, dysuria, chills or fever. Initial workup showed urinalysis being negative after recently being treated with cefdnir. CT chestabdomen pelvis possible underlying cystitis, incidental cecal thickening. High attenuation of the renal. Metastasis that may represent medullary nephrocalcinosis or underlying dehydration state. Due to above, patient will be admitted for further evaluation, care and management 11/29/24 Vital signs reviewed CBC,BMP,Calcium ordered and reviewed Discussed with director social and case management 11/30/24 Met with his at the bedside Vital signs reviewed CBC,bmp,Calcium ordered and reviewed Stress test negative 12/01/24 Vital signs reviewed Awaiting [facility] or SNF IV antibiotics stopped Wbc 8.01 CBC,BMP,CALCIUM ORDERED AND REVIEWED 12/02/24 Vital signs reviewed BP 156/64 to 177/79 Prinivil increased to 20 mg daily and Norvasc 5 mg daily added Discussed with his at the bedside CBC,BMP,Calcium ordered and reviewed DC planning in progress 12/03/24 Vital signs reviewed CBC,BMP ordered and reviewed Awaiting placement Improved bp control 12/04/24 Discussed with his at the bedside Vital signs reviewed Had a 5 second pause Cardiology following CBC,BMP,CALCIUM ORDERED AND REVIEWED Review of Systems Constitutional: Positive for activity change and fatigue. HENT: Negative. Eyes: Negative. Respiratory: Negative. Cardiovascular: Negative. Gastrointestinal: Negative. Endocrine: Negative. Genitourinary: Negative. Musculoskeletal: Negative. Allergic/Immunologic: Negative. Neurological: Negative. Hematological: Negative. Psychiatric/Behavioral: Negative. OBJECTIVE: Vitals: 24hr Min/Max: Temp Min: 36.4 ??C (97.5 ??F) Max: 36.7 ??C (98.1 ??F) Pulse Min: 59 Max: 109 BP Min: 106/72 Max: 143/79 Resp Min: 12 Max: 17 SpO2 Min: 92 % Max: 98 % Most Recent : Vitals: 12/04/24 0727 12/04/24 0730 12/04/24 1200 12/04/24 1516 BP: 106/72 115/59 BP Location: Right arm Left arm Patient Position: Lying Lying Pulse: 109 60 59 70 Resp: 15 16 Temp: 36.4 ??C (97.5 ??F) 36.4 ??C (97.5 ??F) TempSrc: Oral Oral SpO2: 92% 97% Weight: Height: I/O last 2 completed shifts: In: 730 [P.O.:730] Out: 2195 [Urine:2195] I/O this shift: In: 120 [P.O.:120] Out: - Physical Exam: Physical Exam Vitals and nursing note reviewed. Constitutional: Appearance: Normal appearance. HENT: Head: Normocephalic. Nose: Nose normal. Mouth/Throat: Mouth: Mucous membranes are moist. Eyes: General: No scleral icterus. Right eye: No discharge. Left eye: No discharge. Extraocular Movements: Extraocular movements intact. Conjunctiva/sclera: Conjunctivae normal. Pupils: Pupils are equal, round, and reactive to light. Cardiovascular: Rate and Rhythm: Normal rate and regular rhythm. Pulses: Normal pulses. Comments: Healed median sternotomy Pulmonary: Effort: Pulmonary effort is normal. Breath sounds: Normal breath sounds. No wheezing. Abdominal: General: Abdomen is flat. Bowel sounds are normal. There is no distension. Musculoskeletal: General: Normal range of motion. Cervical back: Normal range of motion and neck supple. Right lower leg: No edema. Left lower leg: No edema. Comments: Healed anterior left shoulder surgical scar Skin: General: Skin is warm. Neurological: General: No focal deficit present. Mental Status: He is alert and oriented to person, place, and time. Psychiatric: Mood and Affect: Mood normal. Behavior: Behavior normal. Lab/Radiology/Diagnostic Review: Recent Results (from the past 24 hours) CBC without differential Collection Time: 12/04/24 6:47 AM Result Value Ref Range WBC 8.73 3.80 - 9.90 K/cumm Hgb 11.7 (L) 13.0 - 17.5 g/dL Hct 35.3 (L) 38.9 - 50.3 % Plt 490 (H) 150 - 400 K/cumm MPV 9.2 9.1 - 12.3 fL RBC 4.02 (L) 4.30 - 5.80 M/cumm MCV 87.8 81.3 - 96.4 fL MCH 29.1 27.1 - 33.3 pg MCHC 33.1 32.3 - 35.7 g/dL RDW CV 14.4 11.1 - 14.9 % RDW SD 45.9 35.7 - 48.1 fL NRBC abs 0.00 0.00 - 0.01 K/cumm Basic metabolic panel Collection Time: 12/04/24 6:47 AM Result Value Ref Range Sodium 137 135 - 145 mmol/L Potassium, pl 3.7 3.3 - 4.9 mmol/L Chloride 102 97 - 110 mmol/L CO2 21 (L) 22 - 32 mmol/L Anion gap 14 2 - 15 mmol/L BUN 13 6 - 25 mg/dL Creatinine 0.76 (L) 0.80 - 1.30 mg/dL Glucose 120 70 - 199 mg/dL Calcium 9.4 8.5 - 10.3 mg/dL eGFR Collection Time: 12/04/24 6:47 AM Result Value Ref Range eGFR >90 >=60 mL/min/1.73 m2 ECG 12 lead Result Date: 11/28/2024 Narrative: Vent Rate: 51 bpm RR Interval: 1162 msec IA Interval: 258 msec QRS Duration: 118 msec QTInterval: 442 msec QTC Interval: 419 msec P-R-T [place]: -76 - 2 - 21 degrees IMPRESSION: SINUS BRADYCARDIA WITH FIRST DEGREE AV BLOCK WITH OCCASIONAL SUPRAVENTRICULAR PREMATURE COMPLEXES SEPTAL MYOCARDIAL INFARCTION , OF INDETERMINATE AGE [40+ ms Q WAVE IN V1/V2] ABNORMAL ECG NO CHANGE FROM PREVIOUS TRACING NOTED Electronically Signed By: Murphy Gaitan MD XR Chest 1 View Result Date: 11/28/2024 Narrative: EXAMINATION: XR CHEST 1 VIEW DATE: 11/28/2024 10:00 AM HISTORY: Shortness of breath heartdisease FINDINGS:Compared with the study of 11/25/2024, postsurgical changes in the heart and mediastinum with cardiomegaly. No failure fluid infiltrates or pneumothorax. Right shoulder arthroplasty Impression: Cardiomegaly. No active disease. Electronically signed by: Yordan Dai M.D. CT Chest Abdomen Pelvis WO Contrast Result Date: 11/27/2024 Narrative: EXAMINATION: CT CHEST ABDOMEN PELVIS WO CONTRAST TECHNIQUE: Computed tomographic examination the chest, abdomen and pelvis was performed with intravenous contrast using standard protocol. HISTORY: Increased white count COMPARISON:I do not have a prior study available for comparison FINDINGS: CHEST: There is reticulation at the lung bases that may represent interstitial lung abnormalities. There is no honeycombing or traction bronchiectasis. There are no pulmonary nodules or masses that would suggest primary or metastatic disease. No pleural effusion pneumothorax or focal consolidation present. There is no supraclavicular mediastinal or hilar lymphadenopathy measuring greater than10 mm. Changes compatible with prior coronary artery bypass grafting noted. There is three-vessel coronary artery calcification. There is no pericardial thickening or effusion. Abdomen pelvis: Liver pancreas and gallbladder are normal. There is bilateral renal cysts. Nonobstructing renal calculi noted bilaterally. In addition, there is high attenuation of the renal Minutes. This may represent a dehydration state or conceivably medullary nephrocalcinosis. There is diffuse atherosclerotic diseaseof the aorta and branch vessels. There is diverticulosis no acute diverticulitis. There is a thick-walled bladder with inflammatory stranding suggesting possible cystitis. Enlarged prostate gland noted. Limited evaluation of the cecum demonstrates asymmetric thickening. While this is nonspecific and could represent mucosal collapse in there is clinical concern for any underlying malignancy I would recommend further evaluation with endoscopy. Osseous windows demonstrate no lytic or blastic lesions. Multilevel degenerative disc disease noted. Impression: 1. Possible underlying cystitis. 2. Recommend follow up of the Incidental cecal thickening Additional Imaging In 1 Month with referral to gastroenterology and possible endoscopy. 3. High attenuation of the renal. Metastases that may represent medullary nephrocalcinosis or underlying dehy dration state.. Electronically signed by: Migue Falk M.D., MPH XR Chest 1 View Result Date: 11/26/2024 Narrative: EXAMINATION: XR CHEST 1 VIEW Impression: Comparison with 2024. The lung volumes are small resulting in pulmonary vascular crowding. There is no focal pneumonic consolidation pneumothorax or pleural effusion. There is a tortuous atherosclerotic aorta. There is mild cardiomegaly. Sternal wires are midline and nondisplaced. Electronically signed by: Migue Falk M.D., MPH EEG Result Date: 11/16/2024 Narrative: This EEG was performed for evaluation of an episode of unresponsiveness. This EEG was recorded during wakefulness and drowsiness using a 16 channel EEG machine utilizing the international 10 20 system of electrode placement with bipolar and monopolar montages. The EEG was characterized by a moderate amount of muscle tension and movement artifact. The patient's waking background electrical activity consists of low voltage 8-9 hertz alpha waves best seen in the posterior head regions. During periods of drowsiness 6-7 hertz theta waves of medium voltage predominate. No focal slowing paroxysmal or epileptiform activity is seen. Impression: Normal EEG during wakefulness and drowsiness. Clinical correlation is recommended. MRI Brain WO Contrast Result Date: 11/16/2024 Narrative: EXAMINATION: MRI BRAIN WO CONTRAST HISTORY: 74-year-old man strokelike symptoms history of heart disease hypertension vascular disease TECHNIQUE: Multiplanar multisequence spin-echo imagesobtained FINDINGS: Correlation is made with an MRI dated 10/25/2024, noncontrast CT of 11/15/2024 and a CTA of 11/15/2024. Stable involutional changes with large ventricles and sulci beyond expectations of the patient's age. Diffusion images abnormal with multiple punctate areas of restricted diffusion, in the centrum semi-Milligan bilaterally of the frontal and parietal regions, right occipital cortex, subfrontal right deep white matter, left occipital region. Sparing of the posterior fossa. Areas of restricted diffusion are more pronounced than on the previous study. On the FLAIR images, areas of T2 hyperintensity in the subcortical and periventricular deep white matter, larissa, bilateral occipital regions, more pronounced than previous. Periventricular and subcortical T2 hyperintensities are again seen. Area of T2 hyperintensity in the basal ganglia on the left side involving the lentiform nucleus stable. T2-weighted images demonstrate flow voids within the left vertebral artery with asmall caliber right vertebral artery incompletely seen. Basilar artery patent. Intracranial internal carotid arteries, anterior middle cerebral arteries patent. Deep venous sinuses appear to be patent. Bilateral cataract surgery. Paranasal sinuses and mastoid air cells normally pneumatized. Susceptibility images demonstrate a punctate hemosiderin stain in the medulla dorsally, the right occipitalregion, small area in the left occipital region, left frontal region, right parietal lobe, left frontal lobe. Impression: Multiple acute infarcts bilaterally with restricted diffusion. Multi vascular distribution raise the possibility of either embolic phenomenon versus watershed infarcts. Significant atrophy and small vessel disease. Old hemorrhagic changes. Electronically signed by: Yordan Dai M.D. CTA/CTP Rapid Stroke (C) Result Date: 11/15/2024 Narrative: EXAMINATION: Computed tomography angiography (CTA) of the head with contrast; Computed tomography angiography (CTA) of the neck with contrast. CT perfusion imaging of the head with contrast HISTORY: Suspected hyperacute stroke. 74-year-old man unresponsive history of hypertension TECHNIQUE: . Computed tomographic angiography was obtained from the level of the aortic arch to the vertex following the uneventful administration of intravenous contrast according to hyperacute stroke protocol. 3D images were generated on a dedicated workstation. CT perfusion of the brain was performed with intravenous contrast using a separate data acquisition. The data was transmitted to a separate wor kstation for processing by RAPID software ([employer]) to produce automated calculations of the estimated cerebral blood flow and Tmax. Contrast information: 120 mL Optiray-350 COMPARISON: 10/25/2024 and a CAT scan without contrast earlier today. FINDINGS: HEAD CT FINDINGS: Source images demonstrate stable involutional changes with mild prominence of the ventricles and sulci. Normal vascular enhancement is seen within the deep venous sinuses and [place]. No definitive oligemic areas are seen. No abnormal intracranial enhancement is seen. Great vessels the neck are patent with dominance of the left vertebral artery. Calcification is seen at the carotid bifurcations and cavernous carotid arteries. Aortic arch calcifications are seen without aneurysmal dilatation or dissection. Coronary artery calcifications are noted. Lung apices demonstrate no abnormalities. 2-D and 3-D images:ANGIOGRAPHIC FINDINGS: The visualized aortic arch appears normal with normal configuration of the great vessels. There is no significant stenosis of the origins of the great vessels. There is no geographic area of vascular paucity in the brain. Left anterior circulation: L CCA: no occlusion or significant stenosis. Extensive calcification at the bifurcation extending into the proximal internal carotid artery with no hemodynamically significant stenosis. L carotid bifurcation: no occlusion or significant stenosis L ICA proximal: no occlusion or significant stenosis L ICA distal: no occlusion or significant stenosis L ICA terminus: Atherosclerotic calcifications without high-grade stenosis. LM1: no occlusion or significant stenosis L M2 branches: Dense calcifications with irregularity with mild nonhemodynamically significant stenosis of the trifurcation L A2: no occlusion or significant stenosis. Hypoplastic A1 segment with patent anterior communicating artery. Right anterior circulation: R CCA: Atherosclerotic calcifications without high-grade stenosis. R carotid bifurcation: Atheros clerosis without hemodynamically significant stenosis R ICA proximal: Tortuosity without stenosis LUIS distal: no occlusion or significant stenosis R ICA terminus: Atherosclerotic calcifications without high-grade stenosis R M1: no occlusion or significant stenosis R M2 branches: no occlusion or significant stenosis R A2: no occlusion or significant stenosis. Anterior communicating artery patentPosterior circulation: L Vertebral Artery: no occlusion or significant stenosis. Dominant left vertebral artery. R Vertebral Artery: There is irregularity with multiple areas of moderate stenosis intracranially Basilar Artery: no occlusion or significant stenosis L CODING CLERK: no occlusion or significant stenosis hypoplastic P1 segment with patent posterior communicating artery R CODING CLERK: Hypoplastic P1 segment patent posterior communicating artery No cerebral aneurysm is seen. There is no evidence for anarteriovenous malformation. There is no suspicious cervical lymphadenopathy. There is no significant cervical spondylosis. Limited views of the lung apices are normal. CT Perfusion: Estimated ischemic core volume (rCBF < 0.3): 7 mL Estimated hypoperfusion volume (Tmax > 6 sec): 7 mL Hypoperfusion index 0.5. Mismatch volume 0. Mismatch ratio 1.0. Impression: No CT evidence of stroke. No significant carotid artery stenosis. Diffuse arteriosclerosis. 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 Electronically signed by: Yordan Dai M.D. CT Stroke Head WO Contrast Result Date: 11/15/2024 Narrative: EXAMINATION: CT STROKE HEAD WO CONTRAST dated 11/15/2024 7:20 AM. HISTORY: Code stroke 74-year-old man history of hypertension vascular disease heart disease. FINDINGS: Comparison is made with an MRI dated 10/25/2024. Additionally patient has a CAT scan from 10/25/2024. Lien Searcher radiograph d emonstrates no acute findings. Transaxial images demonstrate stable involutional changes with largeventricles and sulci beyond expectations of the patient's age. Extensive periventricular lucencies reflect chronic microvascular disease. Since the previous CAT scan interval development of area of low CT attenuation in the right parieto-occipital lobe. Small area seen on the left parieto-occipitallobe. No hemorrhagic findings. No midline shift. Arteriosclerosis. Craniovertebral junction normal.Normal pituitary fossa. Mucosal thickening in the floor the maxillary sinuses. No bony abnormalities Impression: ATROPHY SMALL VESSEL DISEASE ATHEROSCLEROSIS. DEVELOPMENT OF OCCIPITAL INFARCTS GREATERON THE RIGHT THAN THE LEFT WHICH WAS SEEN ON THE PREVIOUS MRI. NO HEMORRHAGIC CHANGES Electronically signed by: Yordan Dai M.D. XR Chest 1 View Result Date: 2024 Narrative: EXAMINATION: XR CHEST 1 VIEW HISTORY: The patient is a 74-year-old male who presents with shortness of breath. Comparison made with the previous study dated 10/25/2024. TECHNIQUE: AP portable view of the chest. FINDINGS: Lungs clear. Cardiovascular structures unremarkable. Impression: No active disease. Electronically signed by: Solis Stahl M.D. XR Knee Left 1 or 2 Views Result Date: 11/11/2024 Narrative: EXAMINATION: XR KNEE LEFT 1 OR 2 VIEWS HISTORY: Pain FINDINGS: Severe degenerative changes involving the medial joint space. No fracture or dislocation. No effusion. Vascular calcifications Impression: Significant degenerative changes Electronically signed by: Yordan Dai M.D. ECG 12 lead Result Date: 11/08/2024 Narrative: Vent Rate: 60 bpm RR Interval: 989 msec IA Interval: 269 msec QRS Duration: 107 msec QT Interval: 418 msec QTC Interval: 419 msec P-R-T [place]: 69 - -9 - -3 degrees IMPRESSION: SINUS RHYTHM WITH FIRST DEGREE AV BLOCK WITH OCCASIONAL VENTRICULAR PREMATURE COMPLEXES ABNORMAL ECG Electronically Signed By: Gerard Bauer MD XR Kub Result Date: 10/31/2024 Narrative: EXAMINATION: XR KUB HISTORY: The patient is a 73-year-old male who presents with constipation. TECHNIQUE: Supine view of the abdomen. FINDINGS: Moderate fecal impaction seen in the left colon. No dilated small or large bowel loops. Impression: Fecal impaction. Electronically signed by: Solis Stahl M.D. amLODIPine, 5 mg, Daily apixaban, 5 mg, BID atorvastatin, 80 mg, QAM cetirizine, 10 mg, QAM clopidogreL, 75 mg, Daily ezetimibe, 10 mg, Daily famotidine, 20 mg, BID ferrous sulfate, 65 mg of elemental iron, BID with meals (bkfst, dinner) fluticasone propionate, 1 spray, QAM folic acid, 1 mg, Daily lisinopriL, 20 mg, Daily magnesium oxide, 400 mg, BID [Held by Provider] metoprolol tartrate, 12.5 mg, BID tamsulosin, 0.4 mg, Daily with dinner thiamine, 100 mg, Daily ASSESSMENT/PLAN: Principal Problem: Fever and chills Possible sepsis Leukocytosis and fever on admission Wbc 33.5 on 11/27/24,20.83 ON 11/28/24, 12.2 ON 11/29/24 AND 9.18 ON 11/30/24 Fever weakness with possible underlying infection of unclear etiology. On cefepime and vancomycin for now. BC pending , resp panel negative , urine with no UTI. CXR with no clear infiltrates. Chest pain will send EKD, troponin series and have cardiology to see. CAD with CABG and stents on ASA , high intensity statin and metoprolol xl. PCI Jun 2024 for complex stenosis of the RCA History of CVA on statin and ASA. Chronic atrial fibrillation on apixaban , metoprolol . Urinary retention on tamsulosin has a urinary catheter now , will need urology as outpatient if fails voiding trial. HTN on lisinopril, metoprolol. Normocytic anemia mild with no active bleeding Moderate Malnutrition Apetite stimulant Mild hyponatremia will trend levels for now. [] I confirmed that the patient's Advance Care Plan is present, code status is documented, or surrogate decision maker is listed in the patient's medical record. Son Card MD * Socorro Chambers NP - 12/04/2024 9:26 AM CDT Daily Progress SUBJECTIVE: Mr. Shipman is sitting up in bed. No c/o any chest pain or SOB. No palpitations or dizziness. OBJECTIVE: Vitals: 12/03/24 1544 12/03/24 2004 12/04/24 0005 12/04/24 0727 BP: 130/75 143/79 137/68 106/72 BP Location: Left arm Left arm Left arm Right arm Patient Position: Lying Lying;HOB 30 degrees Lying Lying Pulse: 92 109 66 109 Resp: 12 17 17 15 Temp: 36.7 ??C (98.1 ??F) 36.7 ??C (98.1 ??F) 36.7 ??C (98.1 ??F) 36.4 ??C (97.5 ??F) TempSrc: Oral Oral Oral SpO2: 96% 98% 96% 92% Weight: Height: Intake/Output Summary (Last 24 hours) at 12/04/2024 0926 Last data filed at 12/04/2024 0200 Gross per 24 hour Intake 490 ml Output 1695 ml Net -1205 ml Scheduled Medications Medication Dose Route Frequency amLODIPine (NORVASC) tablet 5 mg 5 mg oral Daily apixaban (ELIQUIS) tablet 5 mg 5 mg oral BID atorvastatin (LIPITOR) tablet 80 mg 80 mg oral QAM cetirizine (ZyrTEC) tablet 10 mg 10 mg oral QAM clopidogreL (PLAVIX) tablet 75 mg 75 mg oral Daily ezetimibe (ZETIA) tablet 10 mg 10 mg oral Daily famotidine (PEPCID) tablet 20 mg 20 mg oral BID ferrous sulfate delayed release tablet 65 mg of elemental iron 65 mg of elemental iron oral BID with meals (bkfst, dinner) fluticasone propionate (FLONASE) 50 mcg/actuation nasal spray 1 spray 1 spray each nostril QAM folic acid (FOLVITE) tablet 1 mg 1 mg oral Daily lisinopriL (PRINIVIL,ZESTRIL) tablet 20 mg 20 mg oral Daily magnesium oxide (MAG-OX) tablet 400 mg 400 mg oral BID metoprolol tartrate (LOPRESSOR) immediate release tablet 12.5 mg 12.5 mg oral BID tamsulosin (FLOMAX) extended release capsule 0.4 mg 0.4 mg oral Daily with dinner thiamine (VITAMIN B-1) tablet 100 mg 100 mg oral Daily LABS: Recent Labs Lab Units 12/04/24 0647 WBC K/cumm 8.73 HEMOGLOBIN g/dL 11.7* HEMATOCRIT % 35.3* PLATELETS K/cumm 490* Recent Labs Lab Units 12/04/24 0647 SODIUM mmol/L 137 POTASSIUM PLASMA mmol/L 3.7 CHLORIDE mmol/L 102 CO2 mmol/L 21* ANIONGAP mmol/L 14 GLUCOSE mg/dL 120 BUN SERUM mg/dL 13 CREATININE mg/dL 0.76* CALCIUM mg/dL 9.4 No results found for: BNP No results found for: TROPONINI Exam General: in no apparent distress Neuro: Alert and oriented. HEENT: normocephalic, atraumatic, thyroid not enlarged. Lungs: symmetric, unlabored, clear to auscultation bilaterally Heart: irreg irreg Abdomen: soft, non-tender, non-distended, bowel sounds present Extremities: no LE edema, palpable peripheral pulses BL ASSESSMENT/PLAN: Chest tightness -EKG with no acute changes -hx of CAD as noted below Stress test was within normal limits no additional cardiac testing is indicated CAD s/p CABG -last cath 06/2024 -s/p PCI 06/2024 with complex stenosis in the RCA -patient with chest tightness on admit, stress test this afternoon for stratification HTN -episodes of elevated BP -monitor and adjust meds as needed History of Afib -On apixaban 5 mg twice daily -has had recurrent RVR off BB. Metoprolol resumed on 12/03 at 12.5 mg BID will monitor. -plan for OP tele monitor Dyslipidemia -On atorvastatin and Zetia LDL cholesterol is acceptable Hx of CVA -continue statin/Plavix Confusion hospitalists are managing Socorro Chambers NP, MSN, ANP-[facility] 12/04/2024 9:26 AM * Chava Muhammad PTA - 12/03/2024 2:20 PM CDT Physical Therapy PT PROGRESS NOTE PATIENT'S NAME:Ayad Shipman :1950 AGE:74 y.o. ROOM:[place] [address] Past Medical History: Diagnosis Date Dizziness Hyperlipidemia Hypertension Loss of balance Nocturia Visual disturbance Past Surgical History: Procedure Laterality Date ANKLE SURGERY CORONARY ARTERY BYPASS GRAFT 2005 x4 on Plavix HEART SURGERY LASIK ORAL SURGERY Patient Active Problem List Diagnosis Chronic rhinitis Coronary atherosclerosis Essential hypertension Hyperlipidemia Nocturia Wax in ear Diplopia Dizziness and giddiness Rotator cuff arthropathy of right shoulder Anemia Glenohumeral arthritis, right Paresthesia History of stroke Intracranial vascular stenosis Acute CVA (cerebrovascular accident) (HCC) Altered mental status CVA (cerebrovascular accident due to intracerebral hemorrhage) (HCC) Episode of unresponsiveness Sepsis (HCC) Fever and chills TIME IN: 1420 TIME OUT: 1451 SUBJECTIVE That eye patch is around here somewhere MENTAL STATUS/ORIENTATION: alert and cooperative PAIN: Pre-therapy pain level: 0/10 Pain location: n/a Pain intervention: not needed Post-therapy pain level/response to intervention: 0/10 OBJECTIVE PRECAUTIONS: fall and bed / chair alarm APPEARANCE/POSTURE: Pt sitting in recliner w/ call light in reach, chair alarm activated, pt in no distress, and pt pleasantly agreeable to therapy VITAL SIGNS: Resting heart rate: 98-104bpm Post-activity heart rate: 102bpm-118bpm Post-activity O2 sat: 96% on room air MOBILITY DOCUMENTATION: Bed Mobility: Mod assist of 1 for sit to supine Transfers: Max assist of 1 for sit to stand from bed w/ heavy posterior lean Gait: 15ft x 1 using wheeled walker- Max assist of 1 progressing to mod to max assist of 1. Pt demonstrated: slow non functional bhanu, variable step length/poor foot placement, heavy posterior leaning, heavily pushing device away from body, decreased foot clearance, and decreased stability. Eye patch donned on R eye to promote greater vision TREATMENT: Static standing with wheeled walker: max assist progressing to mod assist of 1. APPEARANCE/POSTURE (end of session): Pt supine w/ HOB elevated, on room air, call light in reach, bed alarm activated, and handoff given to RN Jason EDUCATION:bed mobility , therapeutic activity, therapeutic exercises , functional transfer training, gait training , balance training / neuromuscular re-education, endurance training, safety , and durable medical equipment education RESPONSE TO EDUCATION: needs reinforcement and verbalizes understanding ASSESSMENT Activity tolerance/response to P.T.: Pt ambulated short distance in room (15ft) and required between mod to max assist 2/2 notable gait deviations. Pt briefly able to correct posterior lean during ambulation. Pt's heart rate elevated but offered no complaints. Barriers to learning: Physical and Visual Barriers to discharge: Limited family support, Cognitive deficit, Limited safety awareness, Decreased endurance, Decreased proprioception, Upper extremity weakness, Lower extremity weakness, Long standing deficits, Impaired vision, Incontinence of bladder, Medical complications, and Stairs at home Patient continues progressing toward previously set goals which remain appropriate at this time. PLAN PT Discharge Recommendations this date: PT Recommendation/Plan: Inpatient Rehab Facility Patient at high risk for: Falls, Readmission, Injury due to decreased ability to care for self, Injury due to reduced functional status, Injury due to balance deficits, Injury at home as patient has not returned to prior level of function Recommend Inpatient Rehab/Acute Rehab due to: Ability to actively participate in intensive therapy 3 hours/day, 5 days/week or 900 minutes per week, Highly motivated to participate in therapy, Not atbaseline due to impaired ability to complete ADLs, Impaired ability to complete functional mobility, Likely to return to the community at discharge with support system in place, Requires greater than25% physical assistance with most mobility tasks, Requires greater than 25% physical assistance with most ADL tasks, Requires multiple therapy disciplines to address functional deficits, Patient and caregiver require specialized skilled training due to new level of function/diagnosis, Requires skilled therapy interventions to address neurological deficits PT Frequency during current admission: Daily CARE PLAN Multi-Disciplinary Problems (from Physical Therapy) Active Problems Problem: PT Misc Start Date: 11/28/24 Goal Start Date Expected End Date End Date PT LTG - perform sup to sit with min A Progressing 11/28/24 12/05/24 -- Goal Start Date Expected End Date End Date PT LTG - perform sit to stand with min A Progressing 11/28/24 12/05/24 -- Goal Start Date Expected End Date End Date PT LTG - perform gait with wh walker 50 feet with min A Progressing 11/28/24 12/05/24 -- Goal Start Date Expected End Date End Date PT LTG -perform sitting balance with good balance dynamic x 5 min Progressing 11/28/24 12/05/24 -- Goal Start Date Expected End Date End Date PT LTG - perform bed to chair transfer with min A of 1 Progressing 12/01/24 12/08/24 -- If this is the last note, please consider this the discharge summary. Cosigned by Beatriz Kimball PT at 12/03/2024 3:49 PM CDT * Son Card MD - 12/03/2024 1:15 PM CDT General Medicine Daily Progress SUBJECTIVE: Chief complaint of Fever and chills. Interval History: Chart reviewed and Pt examined Admit HPI Patient is a 74 y.o. male with past medical history of CVA on 10/23, CAD s/p CABG, atrial fibrillation, urinary retention, hyperlipidemia, diplopia and hypertension who presented as a direct admit from [facility] after being noted with fevers overnight, elevated WBCs up to 33, incontinence of urine and fatigue. Of note, patient was recently admitted here at [facility] on 11/15 and transferred to rehab on 11/18 after being treated for possible UTI with cefdinir until 11/24. Currently patient reports ongoing fatigue and generalized weakness. He denies any other associated symptoms. Denies chest pain, SOB, abdominal pain, constipation, diarrhea, dysuria, chills or fever. Initial workup showed urinalysis being negative after recently being treated with cefdnir. CT chestabdomen pelvis possible underlying cystitis, incidental cecal thickening. High attenuation of the renal. Metastasis that may represent medullary nephrocalcinosis or underlying dehydration state. Due to above, patient will be admitted for further evaluation, care and management 11/29/24 Vital signs reviewed CBC,BMP,Calcium ordered and reviewed Discussed with director social and case management 11/30/24 Met with his at the bedside Vital signs reviewed CBC,bmp,Calcium ordered and reviewed Stress test negative 12/01/24 Vital signs reviewed Awaiting [facility] or SNF IV antibiotics stopped Wbc 8.01 CBC,BMP,CALCIUM ORDERED AND REVIEWED 12/02/24 Vital signs reviewed BP 156/64 to 177/79 Prinivil increased to 20 mg daily and Norvasc 5 mg daily added Discussed with his at the bedside CBC,BMP,Calcium ordered and reviewed DC planning in progress 12/03/24 Vital signs reviewed CBC,BMP ordered and reviewed Awaiting placement Improved bp control Review of Systems Constitutional: Positive for activity change and fatigue. HENT: Negative. Eyes: Negative. Respiratory: Negative. Cardiovascular: Negative. Gastrointestinal: Negative. Endocrine: Negative. Genitourinary: Negative. Musculoskeletal: Negative. Allergic/Immunologic: Negative. Neurological: Negative. Hematological: Negative. Psychiatric/Behavioral: Negative. OBJECTIVE: Vitals: 24hr Min/Max: Temp Min: 36.7 ??C (98.1 ??F) Max: 36.9 ??C (98.4 ??F) Pulse Min: 63 Max: 94 BP Min: 137/76 Max: 157/78 Resp Min: 16 Max: 18 SpO2 Min: 96 % Max: 97 % Most Recent : Vitals: 12/02/24 1603 12/02/24 1949 12/03/24 0006 12/03/24 0800 BP: 138/70 139/72 137/76 157/78 BP Location: Left arm Left arm Left arm Left arm Patient Position: HOB 30 degrees HOB 30 degrees HOB 30 degrees Lying Pulse: 94 63 86 69 Resp: 18 18 18 16 Temp: 36.8 ??C (98.2 ??F) 36.9 ??C (98.4 ??F) 36.9 ??C (98.4 ??F) 36.7 ??C (98.1 ??F) TempSrc: Oral Oral Oral Oral SpO2: 96% 97% 97% 96% Weight: Height: I/O last 2 completed shifts: In: 680 [P.O.:680] Out: 500 [Urine:500] I/O this shift: In: 240 [P.O.:240] Out: 500 [Urine:500] Physical Exam: Physical Exam Vitals and nursing note reviewed. Constitutional: Appearance: Normal appearance. HENT: Head: Normocephalic. Nose: Nose normal. Mouth/Throat: Mouth: Mucous membranes are moist. Eyes: General: No scleral icterus. Right eye: No discharge. Left eye: No discharge. Extraocular Movements: Extraocular movements intact. Conjunctiva/sclera: Conjunctivae normal. Pupils: Pupils are equal, round, and reactive to light. Cardiovascular: Rate and Rhythm: Normal rate and regular rhythm. Pulses: Normal pulses. Comments: Healed median sternotomy Pulmonary: Effort: Pulmonary effort is normal. Breath sounds: Normal breath sounds. No wheezing. Abdominal: General: Abdomen is flat. Bowel sounds are normal. There is no distension. Musculoskeletal: General: Normal range of motion. Cervical back: Normal range of motion and neck supple. Right lower leg: No edema. Left lower leg: No edema. Comments: Healed anterior left shoulder surgical scar Skin: General: Skin is warm. Neurological: General: No focal deficit present. Mental Status: He is alert and oriented to person, place, and time. Psychiatric: Mood and Affect: Mood normal. Behavior: Behavior normal. Lab/Radiology/Diagnostic Review: Recent Results (from the past 24 hours) CBC without differential Collection Time: 12/03/24 6:23 AM Result Value Ref Range WBC 8.34 3.80 - 9.90 K/cumm Hgb 11.1 (L) 13.0 - 17.5 g/dL Hct 34.5 (L) 38.9 - 50.3 % Plt 423 (H) 150 - 400 K/cumm MPV 9.1 9.1 - 12.3 fL RBC 3.90 (L) 4.30 - 5.80 M/cumm MCV 88.5 81.3 - 96.4 fL MCH 28.5 27.1 - 33.3 pg MCHC 32.2 (L) 32.3 - 35.7 g/dL RDW CV 14.4 11.1 - 14.9 % RDW SD 46.2 35.7 - 48.1 fL NRBC abs 0.00 0.00 - 0.01 K/cumm Basic metabolic panel Collection Time: 12/03/24 6:23 AM Result Value Ref Range Sodium 136 135 - 145 mmol/L Potassium, pl 3.6 3.3 - 4.9 mmol/L Chloride 102 97 - 110 mmol/L CO2 22 22 - 32 mmol/L Anion gap 12 2 - 15 mmol/L BUN 13 6 - 25 mg/dL Creatinine 0.76 (L) 0.80 - 1.30 mg/dL Glucose 103 70 - 199 mg/dL Calcium 9.3 8.5 - 10.3 mg/dL eGFR Collection Time: 12/03/24 6:23 AM Result Value Ref Range eGFR >90 >=60 mL/min/1.73 m2 ECG 12 lead Result Date: 11/28/2024 Narrative: Vent Rate: 51 bpm RR Interval: 1162 msec IA Interval: 258 msec QRS Duration: 118 msec QTInterval: 442 msec QTC Interval: 419 msec P-R-T [place]: -76 - 2 - 21 degrees IMPRESSION: SINUS BRADYCARDIA WITH FIRST DEGREE AV BLOCK WITH OCCASIONAL SUPRAVENTRICULAR PREMATURE COMPLEXES SEPTAL MYOCARDIAL INFARCTION , OF INDETERMINATE AGE [40+ ms Q WAVE IN V1/V2] ABNORMAL ECG NO CHANGE FROM PREVIOUS TRACING NOTED Electronically Signed By: Murphy Gaitan MD XR Chest 1 View Result Date: 11/28/2024 Narrative: EXAMINATION: XR CHEST 1 VIEW DATE: 11/28/2024 10:00 AM HISTORY: Shortness of breath heartdisease FINDINGS:Compared with the study of 11/25/2024, postsurgical changes in the heart and mediastinum with cardiomegaly. No failure fluid infiltrates or pneumothorax. Right shoulder arthroplasty Impression: Cardiomegaly. No active disease. Electronically signed by: Yordan Dai M.D. CT Chest Abdomen Pelvis WO Contrast Result Date: 11/27/2024 Narrative: EXAMINATION: CT CHEST ABDOMEN PELVIS WO CONTRAST TECHNIQUE: Computed tomographic examination the chest, abdomen and pelvis was performed with intravenous contrast using standard protocol. HISTORY: Increased white count COMPARISON:I do not have a prior study available for comparison FINDINGS: CHEST: There is reticulation at the lung bases that may represent interstitial lung abnormalities. There is no honeycombing or traction bronchiectasis. There are no pulmonary nodules or masses that would suggest primary or metastatic disease. No pleural effusion pneumothorax or focal consolidation present. There is no supraclavicular mediastinal or hilar lymphadenopathy measuring greater than10 mm. Changes compatible with prior coronary artery bypass grafting noted. There is three-vessel coronary artery calcification. There is no pericardial thickening or effusion. Abdomen pelvis: Liver pancreas and gallbladder are normal. There is bilateral renal cysts. Nonobstructing renal calculi noted bilaterally. In addition, there is high attenuation of the renal Minutes. This may represent a dehydration state or conceivably medullary nephrocalcinosis. There is diffuse atherosclerotic diseaseof the aorta and branch vessels. There is diverticulosis no acute diverticulitis. There is a thick-walled bladder with inflammatory stranding suggesting possible cystitis. Enlarged prostate gland noted. Limited evaluation of the cecum demonstrates asymmetric thickening. While this is nonspecific and could represent mucosal collapse in there is clinical concern for any underlying malignancy I would recommend further evaluation with endoscopy. Osseous windows demonstrate no lytic or blastic lesions. Multilevel degenerative disc disease noted. Impression: 1. Possible underlying cystitis. 2. Recommend follow up of the Incidental cecal thickening Additional Imaging In 1 Month with referral to gastroenterology and possible endoscopy. 3. High attenuation of the renal. Metastases that may represent medullary nephrocalcinosis or underlying dehy dration state.. Electronically signed by: Migue Falk M.D., MPH XR Chest 1 View Result Date: 11/26/2024 Narrative: EXAMINATION: XR CHEST 1 VIEW Impression: Comparison with 2024. The lung volumes are small resulting in pulmonary vascular crowding. There is no focal pneumonic consolidation pneumothorax or pleural effusion. There is a tortuous atherosclerotic aorta. There is mild cardiomegaly. Sternal wires are midline and nondisplaced. Electronically signed by: Migue Falk M.D., MPH EEG Result Date: 11/16/2024 Narrative: This EEG was performed for evaluation of an episode of unresponsiveness. This EEG was recorded during wakefulness and drowsiness using a 16 channel EEG machine utilizing the international 10 20 system of electrode placement with bipolar and monopolar montages. The EEG was characterized by a moderate amount of muscle tension and movement artifact. The patient's waking background electrical activity consists of low voltage 8-9 hertz alpha waves best seen in the posterior head regions. During periods of drowsiness 6-7 hertz theta waves of medium voltage predominate. No focal slowing paroxysmal or epileptiform activity is seen. Impression: Normal EEG during wakefulness and drowsiness. Clinical correlation is recommended. MRI Brain WO Contrast Result Date: 11/16/2024 Narrative: EXAMINATION: MRI BRAIN WO CONTRAST HISTORY: 74-year-old man strokelike symptoms history of heart disease hypertension vascular disease TECHNIQUE: Multiplanar multisequence spin-echo imagesobtained FINDINGS: Correlation is made with an MRI dated 10/25/2024, noncontrast CT of 11/15/2024 and a CTA of 11/15/2024. Stable involutional changes with large ventricles and sulci beyond expectations of the patient's age. Diffusion images abnormal with multiple punctate areas of restricted diffusion, in the centrum semi-Milligan bilaterally of the frontal and parietal regions, right occipital cortex, subfrontal right deep white matter, left occipital region. Sparing of the posterior fossa. Areas of restricted diffusion are more pronounced than on the previous study. On the FLAIR images, areas of T2 hyperintensity in the subcortical and periventricular deep white matter, larissa, bilateral occipital regions, more pronounced than previous. Periventricular and subcortical T2 hyperintensities are again seen. Area of T2 hyperintensity in the basal ganglia on the left side involving the lentiform nucleus stable. T2-weighted images demonstrate flow voids within the left vertebral artery with asmall caliber right vertebral artery incompletely seen. Basilar artery patent. Intracranial internal carotid arteries, anterior middle cerebral arteries patent. Deep venous sinuses appear to be patent. Bilateral cataract surgery. Paranasal sinuses and mastoid air cells normally pneumatized. Susceptibility images demonstrate a punctate hemosiderin stain in the medulla dorsally, the right occipitalregion, small area in the left occipital region, left frontal region, right parietal lobe, left frontal lobe. Impression: Multiple acute infarcts bilaterally with restricted diffusion. Multi vascular distribution raise the possibility of either embolic phenomenon versus watershed infarcts. Significant atrophy and small vessel disease. Old hemorrhagic changes. Electronically signed by: Yordan Dai M.D. CTA/CTP Rapid Stroke (C) Result Date: 11/15/2024 Narrative: EXAMINATION: Computed tomography angiography (CTA) of the head with contrast; Computed tomography angiography (CTA) of the neck with contrast. CT perfusion imaging of the head with contrast HISTORY: Suspected hyperacute stroke. 74-year-old man unresponsive history of hypertension TECHNIQUE: . Computed tomographic angiography was obtained from the level of the aortic arch to the vertex following the uneventful administration of intravenous contrast according to hyperacute stroke protocol. 3D images were generated on a dedicated workstation. CT perfusion of the brain was performed with intravenous contrast using a separate data acquisition. The data was transmitted to a separate wor kstation for processing by RAPID software ([employer]) to produce automated calculations of the estimated cerebral blood flow and Tmax. Contrast information: 120 mL Optiray-350 COMPARISON: 10/25/2024 and a CAT scan without contrast earlier today. FINDINGS: HEAD CT FINDINGS: Source images demonstrate stable involutional changes with mild prominence of the ventricles and sulci. Normal vascular enhancement is seen within the deep venous sinuses and [place]. No definitive oligemic areas are seen. No abnormal intracranial enhancement is seen. Great vessels the neck are patent with dominance of the left vertebral artery. Calcification is seen at the carotid bifurcations and cavernous carotid arteries. Aortic arch calcifications are seen without aneurysmal dilatation or dissection. Coronary artery calcifications are noted. Lung apices demonstrate no abnormalities. 2-D and 3-D images:ANGIOGRAPHIC FINDINGS: The visualized aortic arch appears normal with normal configuration of the great vessels. There is no significant stenosis of the origins of the great vessels. There is no geographic area of vascular paucity in the brain. Left anterior circulation: L CCA: no occlusion or significant stenosis. Extensive calcification at the bifurcation extending into the proximal internal carotid artery with no hemodynamically significant stenosis. L carotid bifurcation: no occlusion or significant stenosis L ICA proximal: no occlusion or significant stenosis L ICA distal: no occlusion or significant stenosis L ICA terminus: Atherosclerotic calcifications without high-grade stenosis. LM1: no occlusion or significant stenosis L M2 branches: Dense calcifications with irregularity with mild nonhemodynamically significant stenosis of the trifurcation L A2: no occlusion or significant stenosis. Hypoplastic A1 segment with patent anterior communicating artery. Right anterior circulation: R CCA: Atherosclerotic calcifications without high-grade stenosis. R carotid bifurcation: Atheros clerosis without hemodynamically significant stenosis R ICA proximal: Tortuosity without stenosis LUIS distal: no occlusion or significant stenosis R ICA terminus: Atherosclerotic calcifications without high-grade stenosis R M1: no occlusion or significant stenosis R M2 branches: no occlusion or significant stenosis R A2: no occlusion or significant stenosis. Anterior communicating artery patentPosterior circulation: L Vertebral Artery: no occlusion or significant stenosis. Dominant left vertebral artery. R Vertebral Artery: There is irregularity with multiple areas of moderate stenosis intracranially Basilar Artery: no occlusion or significant stenosis L CODING CLERK: no occlusion or significant stenosis hypoplastic P1 segment with patent posterior communicating artery R CODING CLERK: Hypoplastic P1 segment patent posterior communicating artery No cerebral aneurysm is seen. There is no evidence for anarteriovenous malformation. There is no suspicious cervical lymphadenopathy. There is no significant cervical spondylosis. Limited views of the lung apices are normal. CT Perfusion: Estimated ischemic core volume (rCBF < 0.3): 7 mL Estimated hypoperfusion volume (Tmax > 6 sec): 7 mL Hypoperfusion index 0.5. Mismatch volume 0. Mismatch ratio 1.0. Impression: No CT evidence of stroke. No significant carotid artery stenosis. Diffuse arteriosclerosis. 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 Electronically signed by: Yordan Dai M.D. CT Stroke Head WO Contrast Result Date: 11/15/2024 Narrative: EXAMINATION: CT STROKE HEAD WO CONTRAST dated 11/15/2024 7:20 AM. HISTORY: Code stroke 74-year-old man history of hypertension vascular disease heart disease. FINDINGS: Comparison is made with an MRI dated 10/25/2024. Additionally patient has a CAT scan from 10/25/2024. Lien Searcher radiograph de monstrates no acute findings. Transaxial images demonstrate stable involutional changes with large ventricles and sulci beyond expectations of the patient's age. Extensive periventricular lucencies reflect chronic microvascular disease. Since the previous CAT scan interval development of area of low CT attenuation in the right parieto-occipital lobe. Small area seen on the left parieto- occipital lobe. No hemorrhagic findings. No midline shift. Arteriosclerosis. Craniovertebral junction normal. Normal pituitary fossa. Mucosal thickening in the floor the maxillary sinuses. No bony abnormalities Impression: ATROPHY SMALL VESSEL DISEASE ATHEROSCLEROSIS. DEVELOPMENT OF OCCIPITAL INFARCTS GREATERON THE RIGHT THAN THE LEFT WHICH WAS SEEN ON THE PREVIOUS MRI. NO HEMORRHAGIC CHANGES Electronically signed by: Yordan Dai M.D. XR Chest 1 View Result Date: 2024 Narrative: EXAMINATION: XR CHEST 1 VIEW HISTORY: The patient is a 74-year-old male who presents with shortness of breath. Comparison made with the previous study dated 10/25/2024. TECHNIQUE: AP portable view of the chest. FINDINGS: Lungs clear. Cardiovascular structures unremarkable. Impression: No active disease. Electronically signed by: Solis Stahl M.D. XR Knee Left 1 or 2 Views Result Date: 11/11/2024 Narrative: EXAMINATION: XR KNEE LEFT 1 OR 2 VIEWS HISTORY: Pain FINDINGS: Severe degenerative changes involving the medial joint space. No fracture or dislocation. No effusion. Vascular calcifications Impression: Significant degenerative changes Electronically signed by: Yordan Dai M.D. ECG 12 lead Result Date: 11/08/2024 Narrative: Vent Rate: 60 bpm RR Interval: 989 msec IA Interval: 269 msec QRS Duration: 107 msec QT Interval: 418 msec QTC Interval: 419 msec P-R-T [place]: 69 - -9 - -3 degrees IMPRESSION: SINUS RHYTHM WITH FIRST DEGREE AV BLOCK WITH OCCASIONAL VENTRICULAR PREMATURE COMPLEXES ABNORMAL ECG Electronically Signed By: Gerard Bauer MD XR Kub Result Date: 10/31/2024 Narrative: EXAMINATION: XR KUB HISTORY: The patient is a 73-year-old male who presents with constipation. TECHNIQUE: Supine view of the abdomen. FINDINGS: Moderate fecal impaction seen in the left colon. No dilated small or large bowel loops. Impression: Fecal impaction. Electronically signed by: Solis Stahl M.D. amLODIPine, 5 mg, Daily apixaban, 5 mg, BID atorvastatin, 80 mg, QAM cetirizine, 10 mg, QAM clopidogreL, 75 mg, Daily ezetimibe, 10 mg, Daily famotidine, 20 mg, BID ferrous sulfate, 65 mg of elemental iron, BID with meals (bkfst, dinner) fluticasone propionate, 1 spray, QAM folic acid, 1 mg, Daily lisinopriL, 20 mg, Daily magnesium oxide, 400 mg, BID tamsulosin, 0.4 mg, Daily with dinner thiamine, 100 mg, Daily ASSESSMENT/PLAN: Principal Problem: Fever and chills Possible sepsis Leukocytosis and fever on admission Wbc 33.5 on 11/27/24,20.83 ON 11/28/24, 12.2 ON 11/29/24 AND 9.18 ON 11/30/24 Fever weakness with possible underlying infection of unclear etiology. On cefepime and vancomycin for now. BC pending , resp panel negative , urine with no UTI. CXR with no clear infiltrates. Chest pain will send EKD, troponin series and have cardiology to see. CAD with CABG and stents on ASA , high intensity statin and metoprolol xl. PCI Jun 2024 for complex stenosis of the RCA History of CVA on statin and ASA. Chronic atrial fibrillation on apixaban , metoprolol . Urinary retention on tamsulosin has a urinary catheter now , will need urology as outpatient if fails voiding trial. HTN on lisinopril, metoprolol. Normocytic anemia mild with no active bleeding Mild hyponatremia will trend levels for now. [] I confirmed that the patient's Advance Care Plan is present, code status is documented, or surrogate decision maker is listed in the patient's medical record. Son Cadr MD * Socorro Chambers NP - 12/03/2024 10:44 AM CDT Daily Progress SUBJECTIVE: Mr. Shipman is sitting up in chair. No c/o any chest pain or SOB at this time. He states he is awaiting placement OBJECTIVE: Vitals: 12/02/24 1603 12/02/24 1950 12/03/24 0006 12/03/24 0800 BP: 138/70 139/72 137/76 157/78 BP Location: Left arm Left arm Left arm Left arm Patient Position: HOB 30 degrees HOB 30 degrees HOB 30 degrees Lying Pulse: 94 63 86 69 Resp: 18 18 18 16 Temp: 36.8 ??C (98.2 ??F) 36.9 ??C (98.4 ??F) 36.9 ??C (98.4 ??F) 36.7 ??C (98.1 ??F) TempSrc: Oral Oral Oral SpO2: 96% 97% 97% 96% Weight: Height: Intake/Output Summary (Last 24 hours) at 12/03/2024 1044 Last data filed at 12/03/2024 0920 Gross per 24 hour Intake 700 ml Output 1000 ml Net -300 ml Scheduled Medications Medication Dose Route Frequency amLODIPine (NORVASC) tablet 5 mg 5 mg oral Daily apixaban (ELIQUIS) tablet 5 mg 5 mg oral BID atorvastatin (LIPITOR) tablet 80 mg 80 mg oral QAM cetirizine (ZyrTEC) tablet 10 mg 10 mg oral QAM clopidogreL (PLAVIX) tablet 75 mg 75 mg oral Daily ezetimibe (ZETIA) tablet 10 mg 10 mg oral Daily famotidine (PEPCID) tablet 20 mg 20 mg oral BID ferrous sulfate delayed release tablet 65 mg of elemental iron 65 mg of elemental iron oral BID with meals (bkfst, dinner) fluticasone propionate (FLONASE) 50 mcg/actuation nasal spray 1 spray 1 spray each nostril QAM folic acid (FOLVITE) tablet 1 mg 1 mg oral Daily lisinopriL (PRINIVIL,ZESTRIL) tablet 20 mg 20 mg oral Daily magnesium oxide (MAG-OX) tablet 400 mg 400 mg oral BID tamsulosin (FLOMAX) extended release capsule 0.4 mg 0.4 mg oral Daily with dinner thiamine (VITAMIN B-1) tablet 100 mg 100 mg oral Daily LABS: Recent Labs Lab Units 12/03/24 0623 WBC K/cumm 8.34 HEMOGLOBIN g/dL 11.1* HEMATOCRIT % 34.5* PLATELETS K/cumm 423* Recent Labs Lab Units 12/03/24 0623 SODIUM mmol/L 136 POTASSIUM PLASMA mmol/L 3.6 CHLORIDE mmol/L 102 CO2 mmol/L 22 ANIONGAP mmol/L 12 GLUCOSE mg/dL 103 BUN SERUM mg/dL 13 CREATININE mg/dL 0.76* CALCIUM mg/dL 9.3 No results found for: BNP No results found for: TROPONINI Exam General: in no apparent distress Neuro: Alert and oriented x 3 HEENT: normocephalic, atraumatic, thyroid not enlarged. Lungs: symmetric, unlabored, clear to auscultation bilaterally Heart: irreg irreg Abdomen: soft, non-tender, non-distended, bowel sounds present Extremities: no LE edema, palpable peripheral pulses BL Neurologic: No focal deficits ASSESSMENT/PLAN: Chest tightness -EKG with no acute changes -hx of CAD as noted below Stress test was within normal limits no additional cardiac testing is indicated CAD s/p CABG -last cath 06/2024 -s/p PCI 06/2024 with complex stenosis in the RCA -patient with chest tightness on admit, stress test this afternoon for stratification HTN -episodes of elevated BP -monitor and adjust meds as needed History of Afib -On apixaban 5 mg twice daily -had brief RVR this am monitor. Off BB d/t bradycardia Dyslipidemia -On atorvastatin and Zetia LDL cholesterol is acceptable Hx of CVA -continue statin/Plavix Confusion hospitalists are managing Bradycardia resolved. discontinueed the beta-alexandria placed patient back on telemetry Socorro Chambers NP, MSN, ANP-[facility] 12/03/2024 10:44 AM * Angélica Ren COTA - 12/03/2024 8:11 AM CDT Occupational Therapy NOTE / SESSION TYPE: DAILY PROGRESS / TREATMENT Patient's Name: Ayad Shipman Age / Sex: 74 y.o. / male Room: [place] [id number] : 1950 Date of service: 12/03/24 TIME IN: 810 TIME OUT: 849 Patient Active Problem List Diagnosis Chronic rhinitis Coronary atherosclerosis Essential hypertension Hyperlipidemia Nocturia Wax in ear Diplopia Dizziness and giddiness Rotator cuff arthropathy of right shoulder Anemia Glenohumeral arthritis, right Paresthesia History of stroke Intracranial vascular stenosis Acute CVA (cerebrovascular accident) (HCC) Altered mental status CVA (cerebrovascular accident due to intracerebral hemorrhage) (HCC) Episode of unresponsiveness Sepsis (HCC) Fever and chills Past Medical History: Diagnosis Date Dizziness Hyperlipidemia Hypertension Loss of balance Nocturia Visual disturbance Past Surgical History: Procedure Laterality Date ANKLE SURGERY CORONARY ARTERY BYPASS GRAFT 2005 x4 on Plavix HEART SURGERY LASIK ORAL SURGERY Precautions (including weight-bearing): Fall risk and Bed / chair alarm Subjective: Pt says they are not sending me back down there meaning to CMR Therapy Pain: Pre-therapy pain level: 0 /10 Pain location: No pain - Location N/A Pain Intervention(s): No pain - Intervention N/A Post-therapy pain level: 0 /10 Pain scale reference: 0-10 SCALE Objective: Appearance: Presentation upon OT arrival: Patient Supine with head of bed elevated Presentation upon OT departure: Patient Sitting in bedside recliner Bed / Chair alarm in place and activated upon OT departure: Yes Call light within arms reach of patient at end of session: Yes Completed patient handoff and notified PATENT CLERK / RN, name: jason, of patient's location and functional status upon completion of session Cognitive / Perceptual: intact Mobility / Transfers: Bed Mobility: supine to sit max A, pt with fair+ static sitting balance while sitting EOB using bedrail for stability. Transfer(s): sit to stand at EOB mod A with verbal cues for hand placement. Stand pivot from bed torecliner mod A with max guiding cues using WW and extra time. Living Skills / Other Activities: Bathing: Patient completed spongebathing including all components while Supine in bed with overall Moderate assistance. Patient required assistance for perineal area, buttocks, left upper leg, right upper leg, left lower leg, including foot, right lower leg, including foot, verbal cue(s), sequencing, increased time to complete, item retrieval, and safety. UE dressing: Patient completed upper body dressing of Hospital gown while Supine in bed with overall Moderate assistance. Patient required assistance for threading RUE, threading LUE, pulling down in back, verbalcue(s), sequencing, set-up of items, and item retrieval. Footwear: Patient completed footwear of Sock(s) while Supine in bed with overall Maximal assistance. Patient required assistance for donning / doffing right sock / footie and donning / doffing left sock / footie Pt observed eating breakfast while long sitting in bed, pt requires assist to occasionally bring cup to mouth for drinking. Caregiver Present: No Education & Training Provided: Role of OT, OT plan of care, ADL training, Bed mobility training, and Functional transfer training Assessment: Activity tolerance / response to OT session: GOOD PARTICIPATION, GOOD MOTIVATION, and FAIR TOLERANCE Progress towards goals: Please refer to care plan from this date for progress towards individual goals Plan: Therapy Plan: Rehab Potential (Prognosis): fair OT Recommendations This Date: OT RECOMMENDATIONS: OT Recommendation: Inpatient Rehab Facility Flow sheet updated and OT Consultation in Regards to Change in Discharge Recommendations: YES /NO: No Additional recommendation comments: Recommend Inpatient Rehab/Acute Rehab due to: Ability to actively participate in intensive therapy 3 hours/day, 5 days/week or 900 minutes per week, Highly motivated to participate in therapy, Not at baseline due to impaired ability to complete ADLs, Impaired ability to complete functional mobility, Likely to return to the community at discharge with support system in place, Requires greater than 25% physical assistance with most mobility tasks, Requires greater than 25% physical assistance with most ADL tasks, Requires multiple therapy disciplines to address functional deficits Frequency of therapy:OT Frequency during current admission: 3-5x/wk If this is the last note, consider this the discharge summary INA Yeh 12/03/24 Cosigned by Evelyn Walker OT at 12/03/2024 10:01 AM CDT * Son Card MD - 12/02/2024 12:33 PM CDT General Medicine Daily Progress SUBJECTIVE: Chief complaint of Fever and chills. Interval History: Chart reviewed and Pt examined Admit HPI Patient is a 74 y.o. male with past medical history of CVA on 10/23, CAD s/p CABG, atrial fibrillation, urinary retention, hyperlipidemia, diplopia and hypertension who presented as a direct admit from [facility] after being noted with fevers overnight, elevated WBCs up to 33, incontinence of urine and fatigue. Of note, patient was recently admitted here at [facility] on 11/15 and transferred to rehab on 11/18 after being treated for possible UTI with cefdinir until 11/24. Currently patient reports ongoing fatigue and generalized weakness. He denies any other associated symptoms. Denies chest pain, SOB, abdominal pain, constipation, diarrhea, dysuria, chills or fever. Initial workup showed urinalysis being negative after recently being treated with cefdnir. CT chestabdomen pelvis possible underlying cystitis, incidental cecal thickening. High attenuation of the renal. Metastasis that may represent medullary nephrocalcinosis or underlying dehydration state. Due to above, patient will be admitted for further evaluation, care and management 11/29/24 Vital signs reviewed CBC,BMP,Calcium ordered and reviewed Discussed with director social and case management 11/30/24 Met with his at the bedside Vital signs reviewed CBC,bmp,Calcium ordered and reviewed Stress test negative 12/01/24 Vital signs reviewed Awaiting [facility] or SNF IV antibiotics stopped Wbc 8.01 CBC,BMP,CALCIUM ORDERED AND REVIEWED 12/02/24 Vital signs reviewed BP 156/64 to 177/79 Prinivil increased to 20 mg daily and Norvasc 5 mg daily added Discussed with his at the bedside CBC,BMP,Calcium ordered and reviewed DC planning in progress Review of Systems Constitutional: Positive for activity change and fatigue. HENT: Negative. Eyes: Negative. Respiratory: Negative. Cardiovascular: Negative. Gastrointestinal: Negative. Endocrine: Negative. Genitourinary: Negative. Musculoskeletal: Negative. Allergic/Immunologic: Negative. Neurological: Negative. Hematological: Negative. Psychiatric/Behavioral: Negative. OBJECTIVE: Vitals: 24hr Min/Max: Temp Min: 36.8 ??C (98.2 ??F) Max: 36.9 ??C (98.4 ??F) Pulse Min: 47 Max: 56 BP Min: 156/64 Max: 177/79 Resp Min: 15 Max: 18 SpO2 Min: 91 % Max: 97 % Most Recent : Vitals: 12/01/24 1657 12/01/24200312/02/24 0006 12/02/24 0826 BP: 158/63 156/64 (!) 177/79 BP Location: Left arm Left arm Left arm Patient Position: HOB 30 degrees HOB 30 degrees HOB 30 degrees Pulse: 56 (!) 47 (!) 47 55 Resp: 18 18 15 Temp: 36.8 ??C (98.2 ??F) 36.9 ??C (98.4 ??F) 36.9 ??C (98.4 ??F) TempSrc: Oral Oral Oral SpO2: 97% 91% 92% Weight: Height: I/O last 2 completed shifts: In: 860 [P.O.:860] Out: 1580 [Urine:1580] I/O this shift: In: 220 [P.O.:220] Out: - Physical Exam: Physical Exam Vitals and nursing note reviewed. Constitutional: Appearance: Normal appearance. HENT: Head: Normocephalic. Nose: Nose normal. Mouth/Throat: Mouth: Mucous membranes are moist. Eyes: General: No scleral icterus. Right eye: No discharge. Left eye: No discharge. Extraocular Movements: Extraocular movements intact. Conjunctiva/sclera: Conjunctivae normal. Pupils: Pupils are equal, round, and reactive to light. Cardiovascular: Rate and Rhythm: Normal rate and regular rhythm. Pulses: Normal pulses. Comments: Healed median sternotomy Pulmonary: Effort: Pulmonary effort is normal. Breath sounds: Normal breath sounds. No wheezing. Abdominal: General: Abdomen is flat. Bowel sounds are normal. There is no distension. Musculoskeletal: General: Normal range of motion. Cervical back: Normal range of motion and neck supple. Right lower leg: No edema. Left lower leg: No edema. Comments: Healed anterior left shoulder surgical scar Skin: General: Skin is warm. Neurological: General: No focal deficit present. Mental Status: He is alert and oriented to person, place, and time. Psychiatric: Mood and Affect: Mood normal. Behavior: Behavior normal. Lab/Radiology/Diagnostic Review: Recent Results (from the past 24 hours) CBC without differential Collection Time: 12/02/24 6:50 AM Result Value Ref Range WBC 9.22 3.80 - 9.90 K/cumm Hgb 11.1 (L) 13.0 - 17.5 g/dL Hct 33.9 (L) 38.9 - 50.3 % Plt 393 150 - 400 K/cumm MPV 9.5 9.1 - 12.3 fL RBC 3.85 (L) 4.30 - 5.80 M/cumm MCV 88.1 81.3 - 96.4 fL MCH 28.8 27.1 - 33.3 pg MCHC 32.7 32.3 - 35.7 g/dL RDW CV 13.9 11.1 - 14.9 % RDW SD 44.8 35.7 - 48.1 fL NRBC abs 0.00 0.00 - 0.01 K/cumm Basic metabolic panel Collection Time: 12/02/24 6:50 AM Result Value Ref Range Sodium 134 (L) 135 - 145 mmol/L Potassium, pl 3.6 3.3 - 4.9 mmol/L Chloride 100 97 - 110 mmol/L CO2 24 22 - 32 mmol/L Anion gap 10 2 - 15 mmol/L BUN 10 6 - 25 mg/dL Creatinine 0.78 (L) 0.80 - 1.30 mg/dL Glucose 99 70 - 199 mg/dL Calcium 9.5 8.5 - 10.3 mg/dL eGFR Collection Time: 12/02/24 6:50 AM Result Value Ref Range eGFR >90 >=60 mL/min/1.73 m2 ECG 12 lead Result Date: 11/28/2024 Narrative: Vent Rate: 51 bpm RR Interval: 1162 msec IA Interval: 258 msec QRS Duration: 118 msec QTInterval: 442 msec QTC Interval: 419 msec P-R-T [place]: -76 - 2 - 21 degrees IMPRESSION: SINUS BRADYCARDIA WITH FIRST DEGREE AV BLOCK WITH OCCASIONAL SUPRAVENTRICULAR PREMATURE COMPLEXES SEPTAL MYOCARDIAL INFARCTION , OF INDETERMINATE AGE [40+ ms Q WAVE IN V1/V2] ABNORMAL ECG NO CHANGE FROM PREVIOUS TRACING NOTED Electronically Signed By: Murphy Gaitan MD XR Chest 1 View Result Date: 11/28/2024 Narrative: EXAMINATION: XR CHEST 1 VIEW DATE: 11/28/2024 10:00 AM HISTORY: Shortness of breath heartdisease FINDINGS:Compared with the study of 11/25/2024, postsurgical changes in the heart and mediastinum with cardiomegaly. No failure fluid infiltrates or pneumothorax. Right shoulder arthroplasty Impression: Cardiomegaly. No active disease. Electronically signed by: Yordan Dai M.D. CT Chest Abdomen Pelvis WO Contrast Result Date: 11/27/2024 Narrative: EXAMINATION: CT CHEST ABDOMEN PELVIS WO CONTRAST TECHNIQUE: Computed tomographic examination the chest, abdomen and pelvis was performed with intravenous contrast using standard protocol. HISTORY: Increased white count COMPARISON:I do not have a prior study available for comparison FINDINGS: CHEST: There is reticulation at the lung bases that may represent interstitial lung abnormalities. There is no honeycombing or traction bronchiectasis. There are no pulmonary nodules or masses that would suggest primary or metastatic disease. No pleural effusion pneumothorax or focal consolidation present. There is no supraclavicular mediastinal or hilar lymphadenopathy measuring greater than10 mm. Changes compatible with prior coronary artery bypass grafting noted. There is three-vessel coronary artery calcification. There is no pericardial thickening or effusion. Abdomen pelvis: Liver pancreas and gallbladder are normal. There is bilateral renal cysts. Nonobstructing renal calculi noted bilaterally. In addition, there is high attenuation of the renal Minutes. This may represent a dehydration state or conceivably medullary nephrocalcinosis. There is diffuse atherosclerotic diseaseof the aorta and branch vessels. There is diverticulosis no acute diverticulitis. There is a thick-walled bladder with inflammatory stranding suggesting possible cystitis. Enlarged prostate gland noted. Limited evaluation of the cecum demonstrates asymmetric thickening. While this is nonspecific and could represent mucosal collapse in there is clinical concern for any underlying malignancy I would recommend further evaluation with endoscopy. Osseous windows demonstrate no lytic or blastic lesions. Multilevel degenerative disc disease noted. Impression: 1. Possible underlying cystitis. 2. Recommend follow up of the Incidental cecal thickening Additional Imaging In 1 Month with referral to gastroenterology and possible endoscopy. 3. High attenuation of the renal. Metastases that may represent medullary nephrocalcinosis or underlying dehy dration state.. Electronically signed by: Migue Falk M.D., MPH XR Chest 1 View Result Date: 11/26/2024 Narrative: EXAMINATION: XR CHEST 1 VIEW Impression: Comparison with 2024. The lung volumes are small resulting in pulmonary vascular crowding. There is no focal pneumonic consolidation pneumothorax or pleural effusion. There is a tortuous atherosclerotic aorta. There is mild cardiomegaly. Sternal wires are midline and nondisplaced. Electronically signed by: Migue Falk M.D., MPH EEG Result Date: 11/16/2024 Narrative: This EEG was performed for evaluation of an episode of unresponsiveness. This EEG was recorded during wakefulness and drowsiness using a 16 channel EEG machine utilizing the international 10 20 system of electrode placement with bipolar and monopolar montages. The EEG was characterized by a moderate amount of muscle tension and movement artifact. The patient's waking background electrical activity consists of low voltage 8-9 hertz alpha waves best seen in the posterior head regions. During periods of drowsiness 6-7 hertz theta waves of medium voltage predominate. No focal slowing paroxysmal or epileptiform activity is seen. Impression: Normal EEG during wakefulness and drowsiness. Clinical correlation is recommended. MRI Brain WO Contrast Result Date: 11/16/2024 Narrative: EXAMINATION: MRI BRAIN WO CONTRAST HISTORY: 74-year-old man strokelike symptoms history of heart disease hypertension vascular disease TECHNIQUE: Multiplanar multisequence spin-echo imagesobtained FINDINGS: Correlation is made with an MRI dated 10/25/2024, noncontrast CT of 11/15/2024 and a CTA of 11/15/2024. Stable involutional changes with large ventricles and sulci beyond expectations of the patient's age. Diffusion images abnormal with multiple punctate areas of restricted diffusion, in the centrum semi-Milligan bilaterally of the frontal and parietal regions, right occipital cortex, subfrontal right deep white matter, left occipital region. Sparing of the posterior fossa. Areas of restricted diffusion are more pronounced than on the previous study. On the FLAIR images, areas of T2 hyperintensity in the subcortical and periventricular deep white matter, larissa, bilateral occipital regions, more pronounced than previous. Periventricular and subcortical T2 hyperintensities are again seen. Area of T2 hyperintensity in the basal ganglia on the left side involving the lentiform nucleus stable. T2-weighted images demonstrate flow voids within the left vertebral artery with asmall caliber right vertebral artery incompletely seen. Basilar artery patent. Intracranial internal carotid arteries, anterior middle cerebral arteries patent. Deep venous sinuses appear to be patent. Bilateral cataract surgery. Paranasal sinuses and mastoid air cells normally pneumatized. Susceptibility images demonstrate a punctate hemosiderin stain in the medulla dorsally, the right occipitalregion, small area in the left occipital region, left frontal region, right parietal lobe, left frontal lobe. Impression: Multiple acute infarcts bilaterally with restricted diffusion. Multi vascular distribution raise the possibility of either embolic phenomenon versus watershed infarcts. Significant atrophy and small vessel disease. Old hemorrhagic changes. Electronically signed by: Yrodan Dai M.D. CTA/CTP Rapid Stroke (C) Result Date: 11/15/2024 Narrative: EXAMINATION: Computed tomography angiography (CTA) of the head with contrast; Computed tomography angiography (CTA) of the neck with contrast. CT perfusion imaging of the head with contrast HISTORY: Suspected hyperacute stroke. 74-year-old man unresponsive history of hypertension TECHNIQUE: . Computed tomographic angiography was obtained from the level of the aortic arch to the vertex following the uneventful administration of intravenous contrast according to hyperacute stroke protocol. 3D images were generated on a dedicated workstation. CT perfusion of the brain was performed with intravenous contrast using a separate data acquisition. The data was transmitted to a separate wor kstation for processing by RAPID software ([employer]) to produce automated calculations of the estimated cerebral blood flow and Tmax. Contrast information: 120 mL Optiray-350 COMPARISON: 10/25/2024 and a CAT scan without contrast earlier today. FINDINGS: HEAD CT FINDINGS: Source images demonstrate stable involutional changes with mild prominence of the ventricles and sulci. Normal vascular enhancement is seen within the deep venous sinuses and [place]. No definitive oligemic areas are seen. No abnormal intracranial enhancement is seen. Great vessels the neck are patent with dominance of the left vertebral artery. Calcification is seen at the carotid bifurcations and cavernous carotid arteries. Aortic arch calcifications are seen without aneurysmal dilatation or dissection. Coronary artery calcifications are noted. Lung apices demonstrate no abnormalities. 2-D and 3-D images:ANGIOGRAPHIC FINDINGS: The visualized aortic arch appears normal with normal configuration of the great vessels. There is no significant stenosis of the origins of the great vessels. There is no geographic area of vascular paucity in the brain. Left anterior circulation: L CCA: no occlusion or significant stenosis. Extensive calcification at the bifurcation extending into the proximal internal carotid artery with no hemodynamically significant stenosis. L carotid bifurcation: no occlusion or significant stenosis L ICA proximal: no occlusion or significant stenosis L ICA distal: no occlusion or significant stenosis L ICA terminus: Atherosclerotic calcifications without high-grade stenosis. LM1: no occlusion or significant stenosis L M2 branches: Dense calcifications with irregularity with mild nonhemodynamically significant stenosis of the trifurcation L A2: no occlusion or significant stenosis. Hypoplastic A1 segment with patent anterior communicating artery. Right anterior circulation: R CCA: Atherosclerotic calcifications without high-grade stenosis. R carotid bifurcation: Atheros clerosis without hemodynamically significant stenosis R ICA proximal: Tortuosity without stenosis LUIS distal: no occlusion or significant stenosis R ICA terminus: Atherosclerotic calcifications without high-grade stenosis R M1: no occlusion or significant stenosis R M2 branches: no occlusion or significant stenosis R A2: no occlusion or significant stenosis. Anterior communicating artery patentPosterior circulation: L Vertebral Artery: no occlusion or significant stenosis. Dominant left vertebral artery. R Vertebral Artery: There is irregularity with multiple areas of moderate stenosis intracranially Basilar Artery: no occlusion or significant stenosis L CODING CLERK: no occlusion or significant stenosis hypoplastic P1 segment with patent posterior communicating artery R CODING CLERK: Hypoplastic P1 segment patent posterior communicating artery No cerebral aneurysm is seen. There is no evidence for anarteriovenous malformation. There is no suspicious cervical lymphadenopathy. There is no significant cervical spondylosis. Limited views of the lung apices are normal. CT Perfusion: Estimated ischemic core volume (rCBF < 0.3): 7 mL Estimated hypoperfusion volume (Tmax > 6 sec): 7 mL Hypoperfusion index 0.5. Mismatch volume 0. Mismatch ratio 1.0. Impression: No CT evidence of stroke. No significant carotid artery stenosis. Diffuse arteriosclerosis. 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 Electronically signed by: Yordan Dai M.D. CT Stroke Head WO Contrast Result Date: 11/15/2024 Narrative: EXAMINATION: CT STROKE HEAD WO CONTRAST dated 11/15/2024 7:20 AM. HISTORY: Code stroke 74-year-old man history of hypertension vascular disease heart disease. FINDINGS: Comparison is made with an MRI dated 10/25/2024. Additionally patient has a CAT scan from 10/25/2024. Lien Searcher radiograph de monstrates no acute findings. Transaxial images demonstrate stable involutional changes with large ventricles and sulci beyond expectations of the patient's age. Extensive periventricular lucencies reflect chronic microvascular disease. Since the previous CAT scan interval development of area of low CT attenuation in the right parieto-occipital lobe. Small area seen on the left parieto- occipital lobe. No hemorrhagic findings. No midline shift. Arteriosclerosis. Craniovertebral junction normal.Normal pituitary fossa. Mucosal thickening in the floor the maxillary sinuses. No bony abnormalities Impression: ATROPHY SMALL VESSEL DISEASE ATHEROSCLEROSIS. DEVELOPMENT OF OCCIPITAL INFARCTS GREATERON THE RIGHT THAN THE LEFT WHICH WAS SEEN ON THE PREVIOUS MRI. NO HEMORRHAGIC CHANGES Electronically signed by: Yordan Dai M.D. XR Chest 1 View Result Date: 2024 Narrative: EXAMINATION: XR CHEST 1 VIEW HISTORY: The patient is a 74-year-old male who presents with shortness of breath. Comparison made with the previous study dated 10/25/2024. TECHNIQUE: AP portable view of the chest. FINDINGS: Lungs clear. Cardiovascular structures unremarkable. Impression: No active disease. Electronically signed by: Solis Stahl M.D. XR Knee Left 1 or 2 Views Result Date: 11/11/2024 Narrative: EXAMINATION: XR KNEE LEFT 1 OR 2 VIEWS HISTORY: Pain FINDINGS: Severe degenerative changes involving the medial joint space. No fracture or dislocation. No effusion. Vascular calcifications Impression: Significant degenerative changes Electronically signed by: Yordan Dai M.D. ECG 12 lead Result Date: 11/08/2024 Narrative: Vent Rate: 60 bpm RR Interval: 989 msec IA Interval: 269 msec QRS Duration: 107 msec QT Interval: 418 msec QTC Interval: 419 msec P-R-T [place]: 69 - -9 - -3 degrees IMPRESSION: SINUS RHYTHM WITH FIRST DEGREE AV BLOCK WITH OCCASIONAL VENTRICULAR PREMATURE COMPLEXES ABNORMAL ECG Electronically Signed By: Gerard Bauer MD XR Kub Result Date: 10/31/2024 Narrative: EXAMINATION: XR KUB HISTORY: The patient is a 73-year-old male who presents with constipation. TECHNIQUE: Supine view of the abdomen. FINDINGS: Moderate fecal impaction seen in the left colon. No dilated small or large bowel loops. Impression: Fecal impaction. Electronically signed by: Solis Stahl M.D. apixaban, 5 mg, BID atorvastatin, 80 mg, QAM cetirizine, 10 mg, QAM clopidogreL, 75 mg, Daily ezetimibe, 10 mg, Daily famotidine, 20 mg, BID ferrous sulfate, 65 mg of elemental iron, BID with meals (bkfst, dinner) fluticasone propionate, 1 spray, QAM folic acid, 1 mg, Daily lisinopriL, 10 mg, Daily magnesium oxide, 400 mg, BID tamsulosin, 0.4 mg, Daily with dinner thiamine, 100 mg, Daily ASSESSMENT/PLAN: Principal Problem: Fever and chills Possible sepsis Leukocytosis and fever on admission Wbc 33.5 on 11/27/24,20.83 ON 11/28/24, 12.2 ON 11/29/24 AND 9.18 ON 11/30/24 Fever weakness with possible underlying infection of unclear etiology. On cefepime and vancomycin for now. BC pending , resp panel negative , urine with no UTI. CXR with no clear infiltrates. Chest pain will send EKD, troponin series and have cardiology to see. CAD with CABG and stents on ASA , high intensity statin and metoprolol xl. PCI Jun 2024 for complex stenosis of the RCA History of CVA on statin and ASA. Chronic atrial fibrillation on apixaban , metoprolol . Urinary retention on tamsulosin has a urinary catheter now , will need urology as outpatient if fails voiding trial. HTN on lisinopril, metoprolol. Normocytic anemia mild with no active bleeding Mild hyponatremia will trend levels for now. [] I confirmed that the patient's Advance Care Plan is present, code status is documented, or surrogate decision maker is listed in the patient's medical record. Son Card MD * Ton Sears MSW - 12/02/2024 11:15 AM CDT SW spoke with the assigned nurse and (who was at bedside). () was under the impression thePt was being discharged today and she alleged was told she had to have a decision today. No discharge orders given. SW reviewed the chart and detailed note from previous CM/SW. A choice list was given and Pt's expressed interest in at least two placements at the time. Today, she is not interested in [facility]. She admitted she did a walkthrough of one facility already. ROSS advisednursing to encourage the () to have a placement identified by Thursday if not sooner. Henny Sears LMSW Commercial Loan Assistant Case Management Dept. * Mando Blum MD - 12/02/2024 11:13 AM CDT [facility] - Cardiology [facility] Progress Note Admit Date: 11/27/2024 9:48 AM @HDAYS@ PCP: Raquel Callejas MD Patient seen and examined Chart , telemtry reviewed Symptoms Patient denies chest pain, dyspnea, palpitations, sweating or syncope. Data Vitals: 12/01/24 1657 12/01/24 2004 12/02/24 0006 12/02/24 0826 BP: 158/63 156/64 (!) 177/79 BP Location: Left arm Left arm Left arm Patient Position: HOB 30 degrees HOB 30 degrees HOB 30 degrees Pulse: 56 (!) 47 (!) 47 55 Resp: 18 18 15 Temp: 36.8 ??C (98.2 ??F) 36.9 ??C (98.4 ??F) 36.9 ??C (98.4 ??F) TempSrc: Oral Oral Oral SpO2: 97% 91% 92% Weight: Height: Intake/Output Summary (Last 24 hours) at 12/02/2024 1113 Last data filed at 12/02/2024 0901 Gross per 24 hour Intake 660 ml Output 1580 ml Net -920 ml Lab Results Component Value Date WBC 9.22 12/02/2024 WBC 8.01 12/01/2024 WBC 9.18 11/30/2024 HGB 11.1 (L) 12/02/2024 HGB 10.5 (L) 12/01/2024 HGB 10.6 (L) 11/30/2024 HCT 33.9 (L) 12/02/2024 HCT 32.4 (L) 12/01/2024 HCT 31.8 (L) 11/30/2024 Lab Results Component Value Date SODIUM 134 (L) 12/02/2024 SODIUM 132 (L) 12/01/2024 SODIUM 132 (L) 11/30/2024 POTASSIUM 3.6 12/02/2024 POTASSIUM 3.5 12/01/2024 POTASSIUM 3.8 11/30/2024 CHLORIDE 100 12/02/2024 CHLORIDE 100 12/01/2024 CHLORIDE 102 11/30/2024 CO2 24 12/02/2024 CO2 21 (L) 12/01/2024 CO2 19 (L) 11/30/2024 CREATININE 0.78 (L) 12/02/2024 CREATININE 0.71 (L) 12/01/2024 CREATININE 0.66 (L) 11/30/2024 GLUCOSE 99 12/02/2024 GLUCOSE 107 12/01/2024 GLUCOSE 106 11/30/2024 CALCIUM 9.5 12/02/2024 CALCIUM 9.0 12/01/2024 CALCIUM 8.9 11/30/2024 No results found for: PTT No results found for: PT No results found for: INR No results found for: BNP No components found for: TROPONIN No results found for: CHOL, TRIG, HDL, LDLCALC No results found for: ALBUMIN, ALKPHOS, ALT, AST No components found for: MAGMGDL No results found for: TSH No results found for: T3FREE No results found for: [id number] Pain Assessment: No/denies pain Pain Score: 0 - No pain Patient's Stated Pain Goal: No pain Pain Interventions: Medication (See MAR) Response to Interventions: Full pain relief Meds MEDICATIONS FOR CURRENT ENCOUNTER: SCHEDULED MEDICATIONS: Scheduled Medications Medication Dose Route Frequency apixaban (ELIQUIS) tablet 5 mg 5 mg oral BID atorvastatin (LIPITOR) tablet 80 mg 80 mg oral QAM cetirizine (ZyrTEC) tablet 10 mg 10 mg oral QAM clopidogreL (PLAVIX) tablet 75 mg 75 mg oral Daily ezetimibe (ZETIA) tablet 10 mg 10 mg oral Daily famotidine (PEPCID) tablet 20 mg 20 mg oral BID ferrous sulfate delayed release tablet 65 mg of elemental iron 65 mg of elemental iron oral BID with meals (bkfst, dinner) fluticasone propionate (FLONASE) 50 mcg/actuation nasal spray 1 spray 1 spray each nostril QAM folic acid (FOLVITE) tablet 1 mg 1 mg oral Daily lisinopriL (PRINIVIL,ZESTRIL) tablet 10 mg 10 mg oral Daily magnesium oxide (MAG-OX) tablet 400 mg 400 mg oral BID tamsulosin (FLOMAX) extended release capsule 0.4 mg 0.4 mg oral Daily with dinner thiamine (VITAMIN B-1) tablet 100 mg 100 mg oral Daily CONTINUOUS MEDICATIONS: Continuous Medications Medication Dose Last Rate PRN MEDICATIONS: PRN Medications Medication Dose Route Frequency Last Admin acetaminophen (TYLENOL) tablet 650 mg 650 mg oral Q6H PRN 650 mg at 12/02/24 0434 artificial tears (wmgkfhk-lhbdbgsabzvz-lscjzufu) (GENTEAL TEARS MODERATE) 0.1-0.3-0.2 % ophthalmic solution 1 drop 1 drop each eye QID PRN 1 drop at 11/28/24 0925 docusate sodium (COLACE) capsule 100 mg 100 mg oral BID PRN 100 mg at 12/02/24 1038 hydrOXYzine (ATARAX) tablet 25 mg 25 mg oral Q4H PRN 25 mg at 12/02/24 0440 ondansetron (ZOFRAN) injection 4 mg 4 mg intravenous Q4H PRN 4 mg at 11/30/242031 ramelteon (ROZEREM) tablet 8 mg 8 mg oral Nightly PRN 8 mg at 11/29/242115 sodium chloride 0.9% flush 10 mL 10 mL intravenous PRN 10 mL at 11/29/24 1308 Allergies Allergen Reactions Meperidine Vomiting, Other (See comments) and Nausea & Vomiting Review of Systems: All systems were reviewed. Pertinent positives are mentioned above. Exam General appearance: alert, cooperative, no distress Neck: No JVD. No carotid Bruit Chest: Adequate air entry bilaterally,few basal crepts Cardiovascular: regular rate, rhythm, normal S1 and S2, without rub, gallops PSM 2/6 Abdomen: soft without mass, non-tender, with normal bowel sounds Extremities: no clubbing, cyanosis or edema. Peripheral pulse palpable Assessment /Plan Chest tightness -EKG with no acute changes -hx of CAD as noted below Stress test was within normal limits no additional cardiac testing is indicated CAD s/p CABG -last cath 06/2024 -s/p PCI 06/2024 with complex stenosis in the RCA -patient with chest tightness on admit, stress test this afternoon for stratification HTN -episodes of elevated BP -monitor and adjust meds as needed History of Afib -On apixaban 5 mg twice daily In sinus rhythm at present Dyslipidemia -On atorvastatin and Zetia LDL cholesterol is acceptable Hx of CVA -continue statin/Plavix Confusion hospitalists are managing Bradycardia resolved. discontinueed the beta-alexandria placed patient back on telemetry Mando Blum MD * Rickie Chew MD - 12/01/2024 1:52 PM CDT Infectious Disease Ayad Shipman Admit Date: 11/27/2024 LOS: 4 Days Consulting Physician: Leanne Dockery MD Reason for consult: Leukocytosis Interval Course No new events,stress test was negative Blood cultures remain negative New Symptoms Afebrile, sitting in bed, denies any new complaint, had normal bowel movement earlier, WBCs remainsnormal ATBX Cefepime Data Vitals: 12/01/24 0016 12/01/24 0815 12/01/24 0831 12/01/24 1255 BP: 153/61 143/72 BP Location: Left arm Left arm Patient Position: Lying HOB 30 degrees Pulse: 51 60 56 Resp: 19 17 Temp: 37.1 ??C (98.8 ??F) 36.8 ??C (98.2 ??F) TempSrc: Oral Oral SpO2: 98% 96% Weight: 71.6 kg (157 lb 13.6 oz) Height: 170.2 cm (5' 7) Temp (24hrs), Av.9 ??C (98.4 ??F), Min:36.8 ??C (98.2 ??F), Max:37.1 ??C (98.8 ??F) Recent Labs Lab Units 12/01/2442311/30/24 0509 11/29/24 0613 WBC K/cumm 8.01 9.18 12.20* HEMOGLOBIN g/dL 10.5* 10.6* 10.5* HEMATOCRIT % 32.4* 31.8* 32.6* PLATELETS K/cumm 351 347 321 Recent Labs Lab Units 12/01/2442311/30/24 0509 11/29/24 0613 BUN SERUM mg/dL 10 12 14 CREATININE mg/dL 0.71* 0.66* 0.71* Scheduled Meds:apixaban, 5 mg, oral, BID atorvastatin, 80 mg, oral, QAM cetirizine, 10 mg, oral, QAM clopidogreL, 75 mg, oral, Daily ezetimibe, 10 mg, oral, Daily famotidine, 20 mg, oral, BID ferrous sulfate, 65 mg of elemental iron, oral, BID with meals (bkfst, dinner) fluticasone propionate, 1 spray, each nostril, QAM folic acid, 1 mg, oral, Daily lisinopriL, 10 mg, oral, Daily magnesium oxide, 400 mg, oral, BID tamsulosin, 0.4 mg, oral, Daily with dinner thiamine, 100 mg, oral, Daily Continuous Infusions: PRN Meds:. acetaminophen lubricant docusate sodium ondansetron ramelteon sodium chloride 0.9% Review of Systems: Gen: denies fevers, denies chills, denies sweats, denies unintentional weight loss HEENT: Denies sore throat, denies thrush Neck: Denies palpable lymph nodes, denies neck stiffness Cv: denies chest pain, denies palpitations Resp: Denies SOB, Denies orthopnea Gi: Denies abdominal pain, Denies diarrhea, denies n/v Extrem: Denies gross deformities, denies joint pain, denies myalgias Skin: Denies rashes, denies lesions Neuro: Denies weakness, denies paresthesias, denies memory loss Psych: denies depression, denies anxiety Objective: Vitals: 24hr Min/Max: Temp Min: 36.7 ??C (98.1 ??F) Max: 38.2 ??C (100.8 ??F) Pulse Min: 72 Max: 113 BP Min: 129/71 Max: 173/63 Resp Min: 18 Max: 21 SpO2 Min: 95 % Max: 96 % Physical Exam: General appearance: alert, cooperative, no distress HEENT: (-)icterus, Oropharnyx is normal, NCAT Neck: No palpable LN Lungs: breath sounds normal and symmetric; minimal respiratory effort, no r/w/c Heart: regular rhythm, normal S1 and S2, no m/r/g Abdomen: soft without mass, non-tender, +bowel sounds, no HSM Skin: (-)new rashes, no ulcerations MSK: no gross deformities, FROM Extremities : no Edema, pulses present bilaterally Neuro: No focal deficits Psych: Appropriate mood and affect Lab/Radiology/Diagnostic Review: 11/26 CT chest abdomen pelvis without IMPRESSION: 1. Possible underlying cystitis. 2. Recommend follow up of the Incidental cecal thickening Additional Imaging In 1 Month with referral to gastroenterology and possible endoscopy. 3. High attenuation of the renal. Metastases that may represent medullary nephrocalcinosis or underlying dehydration state.. 11/27 blood cultures currently 11/25 UA negative 11/15 blood culture no growth 11/15 urine culture greater than 1000 colonies of Klebsiella Assessment: Low-grade fever, leukocytosis, unclear source Recent history of UTI treated repeat UA negative Recent history of stroke History of CAD status post CABG Anemia History of CVA with right-sided hemiparesis Plan: Doing well off antibiotic Awaiting possible transfer to rehab Monitor temp and CBC,now normalize Respiratory PCR neg Supportive care ID service will sign off please call for questions or changes * Kaia Burton - 12/01/2024 1:03 PM CDT NUTRITION ASSESSMENT Nutrition Status: Patient not available for interview, unable to complete nutrition status assessment. REASON FOR ASSESSMENT: Length of Stay Encounter Date: 12/01/24 1:03 PM Admission Date: 11/27/2024 LOS: 4 days HPI: Patient is a 74 y.o. male with past medical history of CVA on 10/23, CAD s/p CABG, atrial fibrillation, urinary retention, hyperlipidemia, diplopia and hypertension who presented as a direct admit from [facility] after being noted with fevers overnight, elevated WBCs up to 33, incontinence of urine and fatigue. Of note, patient was recently admitted here at [facility] on 11/15 and transferred to rehab on 11/18 after being treated for possible UTI with cefdinir until 11/24. Currently patient reports ongoing fatigue and generalized weakness. He denies any other associated symptoms. Denies chest pain, SOB, abdominal pain, constipation, diarrhea, dysuria, chills or fever. Initial workup showed urinalysis being negative after recently being treated with cefdnir. CT chestabdomen pelvis possible underlying cystitis, incidental cecal thickening. High attenuation of the renal. Metastasis that may represent medullary nephrocalcinosis or underlying dehydration state. 12/01/24: continue current diet. Resume Gelatein Plus BID and Thrive daily. Pt may benefit from NFPE Objective Past Medical History: Diagnosis Date Dizziness Hyperlipidemia Hypertension Loss of balance Nocturia Visual disturbance Past Surgical History: Procedure Laterality Date ANKLE SURGERY CORONARY ARTERY BYPASS GRAFT 2005 x4 on Plavix HEART SURGERY LASIK ORAL SURGERY Social History Tobacco Use Smoking status: Former Current packs/day: 0.00 Types: Cigarettes Quit date: 1999 Years since quittin.5 Smokeless tobacco: Never Substance and Sexual Activity Drug use: Yes Types: Alcohol Sexual activity: Not Currently Partners: Female Alcohol Use: Alcohol Misuse (11/18/2024) AUDIT-C Frequency of Alcohol Consumption: 4 or more times a week Average Number of Drinks: 3 or 4 Frequency of Binge Drinking: Never MEDICATION/LAB REVIEW: Scheduled Meds: apixaban, 5 mg, oral, BID atorvastatin, 80 mg, oral, QAM cetirizine, 10 mg, oral, QAM clopidogreL, 75 mg, oral, Daily ezetimibe, 10 mg, oral, Daily famotidine, 20 mg, oral, BID ferrous sulfate, 65 mg of elemental iron, oral, BID with meals (bkfst, dinner) fluticasone propionate, 1 spray, each nostril, QAM folic acid, 1 mg, oral, Daily lisinopriL, 10 mg, oral, Daily magnesium oxide, 400 mg, oral, BID tamsulosin, 0.4 mg, oral, Daily with dinner thiamine, 100 mg, oral, Daily Continuous Infusions: PRN Meds: acetaminophen lubricant docusate sodium ondansetron ramelteon sodium chloride 0.9% Recent Labs Lab Units 12/01/24 0424 11/28/24 0937 11/25/24 1454 SODIUM mmol/L 132* < > 132* POTASSIUM PLASMA mmol/L 3.5 < > 3.5 CHLORIDE mmol/L 100 < > 100 CO2 mmol/L 21* < > 21* BUN SERUM mg/dL 10 < > 12 CREATININE mg/dL 0.71* < > 0.91 [id number] mL/min/1.73 m2 >90 < > 88 CALCIUM mg/dL 9.0 < > 9.5 ALBUMIN g/dL -- -- 3.7 < > = values in this interval not displayed. Recent Labs Lab Units 12/01/24 0424 11/30/24 0509 11/29/24 0613 11/28/24 0937 11/26/24 1703 11/25/24 1454 GLUCOSE mg/dL 107 106 112 104 -- 107 POC GLUCOSE MONITOR mg/dL -- -- -- -- 114 -- No results found for: ALT, AST, BILIRUBIN, ALKPHOS, LIPASE Lab Results Component Value Date HGBA1C 6.1 (H) 10/26/2024 HDL 62 10/26/2024 LDLCALC 58 10/26/2024 CHOL 135 10/26/2024 TRIG 77 10/26/2024 NURSING ASSESSMENT: Last BM Date: 11/30/24 Bowel Sounds (All Quadrants): Active Rajan Scale Score: 18 Skin Integrity: Blanchable redness Edema: No pitting Vital Signs BP: 143/72 Temp: 36.8 ??C (98.2 ??F) Pulse: 56 Resp: 17 SpO2: 96 % Intake/Output Summary (Last 24 hours) at 12/01/2024 1303 Last data filed at 12/01/2024 0844 Gross per 24 hour Intake 900 ml Output 1250 ml Net -350 ml Adult Malnutrition Scoring Tool (MST) What diet do you follow at home?: Regular Have You Recently Lost Weight Without Trying?: No Have you been eating poorly because of a decreased appetite?: No Malnutrition Screening Tool (MST) Score: 0 Within the past 12 months, you worried that your food would run out before you got the money to buymore.: Never true Within the past 12 months, the food you bought just didn't last and you didn't have money to get more.: Never true Anthropometrics Weight: 71.6 kg (157 lb 13.6 oz) Admission Weight : 71.6 kg Weight Change: 0.03 kg (0.08 lbs) IBW/kg (Calculated) : 67.1 kg Height: 170.2 cm (5' 7) Weight in (lb) to have BMI = 25: 159.3 BMI (Calculated): 24.7 BMI Classification: BMI 18.5 - 24.9 Normal Weight Wt Readings from Last 10 Encounters: 12/01/24 71.6 kg (157 lb 13.6 oz) 11/26/24 71 kg (156 lb 8.4 oz) 11/17/24 81.6 kg (179 lb 14.3 oz) 11/15/24 82.1 kg (181 lb) 11/13/24 82.5 kg (181 lb 14.1 oz) 10/28/24 77.1 kg (169 lb 15.6 oz) 08/31/24 77.1 kg (170 lb) 06/28/24 77.1 kg (170 lb) 04/19/24 77.1 kg (170 lb) 02/19/24 77.1 kg (170 lb) ESTIMATED NEEDS: Total Kcal/kg Estimated Needs : 1861.6 Kcal/k. Type of Weight Used for Estimated Kcals: Current Total Protein Estimated Needs (gm): 71.6 Protein Needs Based on g/k.0 Type of Weight Used for Estimated Protein : Current Total Fluid Estimated Needs: 1790 Fluid Needs Based on : 25 ml/kg Type of Weight Used for EstimatedFluid Needs: Current Dietary Orders (From admission, onward) Start Ordered 11/29/241729 Adult Diet Regular Diet effective now Question: (CH) Diet type Answer: Regular 11/29/241729 Allergies: Reviewed. IMPRESSION: Pt unavailable for interview at time of visit. PO intakes/Appetite: intakes variable. Initially poor with 25% charted intakes, but now appear to be improving to 50-100% Vit/Min/ONS/TF regimen: Pt tolerated Gelatein Plus and Thrive during recent admit - will resume Dentition/chewing/swallowing: WNL Food Preparation ability/eating out: independent Cultural/Caodaism needs: none Weight trends/UBW: prior RD notes indicate UBW is around 170#. Wt hx is variable, however current bedscale wt may show some acute wt loss. This may be a 10% wt loss in 1 mos if accurate, which is significant for timeframe Weights/Vitals Weight (LB) Weight (KG) Weight Method 10/28/2024 170 lb 77.111 kg Bed scale 169 lb 15.6 oz 77.1 kg 169 lb 15.6 oz 77.1 kg 11/03/2024 169 lb 15.6 oz 77.1 kg 11/06/2024 167 lb 15.9 oz 76.2 kg Bed scale 11/13/2024 181 lb 14.1 oz 82.5 kg Bed scale 11/15/2024 181 lb 82.1 kg 11/16/2024 180 lb 81.647 kg 11/17/2024 179 lb 14.3 oz 81.6 kg 11/18/2024 176 lb 12.9 oz 80.2 kg 176 lb 12.9 oz 80.2 kg 11/19/2024 160 lb 11.5 oz 72.9 kg Bed scale 11/26/2024 156 lb 8.4 oz 71 kg Bed scale 11/27/2024 157 lb 12.2 oz 71.56 kg Bed scale 12/01/2024 157 lb 13.6 oz 71.6 kg Bowel Movement: last charted BM 11/30 Skin: WNL Labs/meds reviewed and noted. AAIM (ASPEN) MALNUTRITION ASSESSMENT: Unable to complete at this time 12/01 NUTRITION FOCUSED PHYSICAL EXAM: Not completed due to Pt unavailable NUTRITION DIAGNOSIS: Nutrition Diagnosis 1: Inadequate oral intake Related to: Acute illness/injury Evidenced by: Inconsistent PO intakes INTERVENTION(S): Summary: Initial assessment, Medical food supplement continue current diet. Resume Gelatein Plus BID and Thrive daily. GOAL(S): Adequate nutrition to meet estimated needs by next assessment, Tolerance of medical food supplementby next assessment MONITORING/EVALUATION: Appetite, Diet-related questions, Discharge plans, PO intake, Plan of care, Supplement tolerance Diet Instructions Continue to follow a heart healthy diet that is low in sodium, trans fat and saturated fat. Read the nutrition facts label on packages. Aim to eat less than 2,000mg sodium per day (about 500-700 mg per meal). Do not add salt to foods and avoid foods that are high sources of sodium, such as fast foods, fried/breaded foods, canned goods, deli meats and gravies/sauces. Increase your intake of foods high in fiber, such as whole grains, fruits and vegetables. For questions, can call [facility] Dietitian's Office at [phone]. Additional resources available online from the [employer] at [email or web address]/en/healthy-living/[email or web address] Kaia Burton MS, RD/LD * Son Card MD - 12/01/2024 12:11 PM CDT General Medicine Daily Progress SUBJECTIVE: Chief complaint of Fever and chills. Interval History: Chart reviewed and Pt examined Admit HPI Patient is a 74 y.o. male with past medical history of CVA on 10/23, CAD s/p CABG, atrial fibrillation, urinary retention, hyperlipidemia, diplopia and hypertension who presented as a direct admit from [facility] after being noted with fevers overnight, elevated WBCs up to 33, incontinence of urine and fatigue. Of note, patient was recently admitted here at [facility] on 11/15 and transferred to rehab on 11/18 after being treated for possible UTI with cefdinir until 11/24. Currently patient reports ongoing fatigue and generalized weakness. He denies any other associated symptoms. Denies chest pain, SOB, abdominal pain, constipation, diarrhea, dysuria, chills or fever. Initial workup showed urinalysis being negative after recently being treated with cefdnir. CT chestabdomen pelvis possible underlying cystitis, incidental cecal thickening. High attenuation of the renal. Metastasis that may represent medullary nephrocalcinosis or underlying dehydration state. Due to above, patient will be admitted for further evaluation, care and management 11/29/24 Vital signs reviewed CBC,BMP,Calcium ordered and reviewed Discussed with director social and case management 11/30/24 Met with his at the bedside Vital signs reviewed CBC,bmp,Calcium ordered and reviewed Stress test negative 12/01/24 Vital signs reviewed Awaiting [facility] or SNF IV antibiotics stopped Wbc 8.01 CBC,BMP,CALCIUM ORDERED AND REVIEWED Review of Systems Constitutional: Positive for activity change and fatigue. HENT: Negative. Eyes: Negative. Respiratory: Negative. Cardiovascular: Negative. Gastrointestinal: Negative. Endocrine: Negative. Genitourinary: Negative. Musculoskeletal: Negative. Allergic/Immunologic: Negative. Neurological: Negative. Hematological: Negative. Psychiatric/Behavioral: Negative. OBJECTIVE: Vitals: 24hr Min/Max: Temp Min: 36.8 ??C (98.2 ??F) Max: 37.1 ??C (98.8 ??F) Pulse Min: 45 Max: 60 BP Min: 141/67 Max: 158/62 Resp Min: 17 Max: 19 SpO2 Min: 96 % Max: 98 % Most Recent : Vitals: 11/30/24 2039 12/01/24 0016 12/01/24 0815 12/01/24 0831 BP: 153/75 153/61 143/72 BP Location: Right arm Left arm Left arm Patient Position: Lying Lying HOB 30 degrees Pulse: (!) 45 51 60 56 Resp: 19 17 Temp: 37.1 ??C (98.8 ??F) 36.8 ??C (98.2 ??F) TempSrc: Oral Oral SpO2: 98% 96% Weight: Height: I/O last 2 completed shifts: In: 940 [P.O.:940] Out: 1250 [Urine:1250] I/O this shift: In: 420 [P.O.:420] Out: - Physical Exam: Physical Exam Vitals and nursing note reviewed. Constitutional: Appearance: Normal appearance. HENT: Head: Normocephalic. Nose: Nose normal. Mouth/Throat: Mouth: Mucous membranes are moist. Eyes: General: No scleral icterus. Right eye: No discharge. Left eye: No discharge. Extraocular Movements: Extraocular movements intact. Conjunctiva/sclera: Conjunctivae normal. Pupils: Pupils are equal, round, and reactive to light. Cardiovascular: Rate and Rhythm: Normal rate and regular rhythm. Pulses: Normal pulses. Comments: Healed median sternotomy Pulmonary: Effort: Pulmonary effort is normal. Breath sounds: Normal breath sounds. No wheezing. Abdominal: General: Abdomen is flat. Bowel sounds are normal. There is no distension. Musculoskeletal: General: Normal range of motion. Cervical back: Normal range of motion and neck supple. Right lower leg: No edema. Left lower leg: No edema. Comments: Healed anterior left shoulder surgical scar Skin: General: Skin is warm. Neurological: General: No focal deficit present. Mental Status: He is alert and oriented to person, place, and time. Psychiatric: Mood and Affect: Mood normal. Behavior: Behavior normal. Lab/Radiology/Diagnostic Review: Recent Results (from the past 24 hours) CBC without differential Collection Time: 12/01/24 4:24 AM Result Value Ref Range WBC 8.01 3.80 - 9.90 K/cumm Hgb 10.5 (L) 13.0 - 17.5 g/dL Hct 32.4 (L) 38.9 - 50.3 % Plt 351 150 - 400 K/cumm MPV 9.5 9.1 - 12.3 fL RBC 3.68 (L) 4.30 - 5.80 M/cumm MCV 88.0 81.3 - 96.4 fL MCH 28.5 27.1 - 33.3 pg MCHC 32.4 32.3 - 35.7 g/dL RDW CV 13.9 11.1 - 14.9 % RDW SD 45.7 35.7 - 48.1 fL NRBC abs 0.00 0.00 - 0.01 K/cumm Basic metabolic panel Collection Time: 12/01/24 4:24 AM Result Value Ref Range Sodium 132 (L) 135 - 145 mmol/L Potassium, pl 3.5 3.3 - 4.9 mmol/L Chloride 100 97 - 110 mmol/L CO2 21 (L) 22 - 32 mmol/L Anion gap 11 2 - 15 mmol/L BUN 10 6 - 25 mg/dL Creatinine 0.71 (L) 0.80 - 1.30 mg/dL Glucose 107 70 - 199 mg/dL Calcium 9.0 8.5 - 10.3 mg/dL eGFR Collection Time: 12/01/24 4:24 AM Result Value Ref Range eGFR >90 >=60 mL/min/1.73 m2 ECG 12 lead Result Date: 11/28/2024 Narrative: Vent Rate: 51 bpm RR Interval: 1162 msec IA Interval: 258 msec QRS Duration: 118 msec QTInterval: 442 msec QTC Interval: 419 msec P-R-T [place]: -76 - 2 - 21 degrees IMPRESSION: SINUS BRADYCARDIA WITH FIRST DEGREE AV BLOCK WITH OCCASIONAL SUPRAVENTRICULAR PREMATURE COMPLEXES SEPTAL MYOCARDIAL INFARCTION , OF INDETERMINATE AGE [40+ ms Q WAVE IN V1/V2] ABNORMAL ECG NO CHANGE FROM PREVIOUS TRACING NOTED Electronically Signed By: Murphy Gaitan MD XR Chest 1 View Result Date: 11/28/2024 Narrative: EXAMINATION: XR CHEST 1 VIEW DATE: 11/28/2024 10:00 AM HISTORY: Shortness of breath heartdisease FINDINGS:Compared with the study of 11/25/2024, postsurgical changes in the heart and mediastinum with cardiomegaly. No failure fluid infiltrates or pneumothorax. Right shoulder arthroplasty Impression: Cardiomegaly. No active disease. Electronically signed by: Yordan Dai M.D. CT Chest Abdomen Pelvis WO Contrast Result Date: 11/27/2024 Narrative: EXAMINATION: CT CHEST ABDOMEN PELVIS WO CONTRAST TECHNIQUE: Computed tomographic examination the chest, abdomen and pelvis was performed with intravenous contrast using standard protocol. HISTORY: Increased white count COMPARISON:I do not have a prior study available for comparison FINDINGS: CHEST: There is reticulation at the lung bases that may represent interstitial lung abnormalities. There is no honeycombing or traction bronchiectasis. There are no pulmonary nodules or masses that would suggest primary or metastatic disease. No pleural effusion pneumothorax or focal consolidation present. There is no supraclavicular mediastinal or hilar lymphadenopathy measuring greater than10 mm. Changes compatible with prior coronary artery bypass grafting noted. There is three-vessel coronary artery calcification. There is no pericardial thickening or effusion. Abdomen pelvis: Liver pancreas and gallbladder are normal. There is bilateral renal cysts. Nonobstructing renal calculi noted bilaterally. In addition, there is high attenuation of the renal Minutes. This may represent a dehydration state or conceivably medullary nephrocalcinosis. There is diffuse atherosclerotic diseaseof the aorta and branch vessels. There is diverticulosis no acute diverticulitis. There is a thick-walled bladder with inflammatory stranding suggesting possible cystitis. Enlarged prostate gland noted. Limited evaluation of the cecum demonstrates asymmetric thickening. While this is nonspecific and could represent mucosal collapse in there is clinical concern for any underlying malignancy I would recommend further evaluation with endoscopy. Osseous windows demonstrate no lytic or blastic lesions. Multilevel degenerative disc disease noted. Impression: 1. Possible underlying cystitis. 2. Recommend follow up of the Incidental cecal thickening Additional Imaging In 1 Month with referral to gastroenterology and possible endoscopy. 3. High attenuation of the renal. Metastases that may represent medullary nephrocalcinosis or underlying dehy dration state.. Electronically signed by: Migue Falk M.D., MPH XR Chest 1 View Result Date: 11/26/2024 Narrative: EXAMINATION: XR CHEST 1 VIEW Impression: Comparison with 2024. The lung volumes are small resulting in pulmonary vascular crowding. There is no focal pneumonic consolidation pneumothorax or pleural effusion. There is a tortuous atherosclerotic aorta. There is mild cardiomegaly. Sternal wires are midline and nondisplaced. Electronically signed by: Migue Falk M.D., MPH EEG Result Date: 11/16/2024 Narrative: This EEG was performed for evaluation of an episode of unresponsiveness. This EEG was recorded during wakefulness and drowsiness using a 16 channel EEG machine utilizing the international 10 20 system of electrode placement with bipolar and monopolar montages. The EEG was characterized by a moderate amount of muscle tension and movement artifact. The patient's waking background electrical activity consists of low voltage 8-9 hertz alpha waves best seen in the posterior head regions. During periods of drowsiness 6-7 hertz theta waves of medium voltage predominate. No focal slowing paroxysmal or epileptiform activity is seen. Impression: Normal EEG during wakefulness and drowsiness. Clinical correlation is recommended. MRI Brain WO Contrast Result Date: 11/16/2024 Narrative: EXAMINATION: MRI BRAIN WO CONTRAST HISTORY: 74-year-old man strokelike symptoms history of heart disease hypertension vascular disease TECHNIQUE: Multiplanar multisequence spin-echo imagesobtained FINDINGS: Correlation is made with an MRI dated 10/25/2024, noncontrast CT of 11/15/2024 and a CTA of 11/15/2024. Stable involutional changes with large ventricles and sulci beyond expectations of the patient's age. Diffusion images abnormal with multiple punctate areas of restricted diffusion, in the centrum semi-Milligan bilaterally of the frontal and parietal regions, right occipital cortex, subfrontal right deep white matter, left occipital region. Sparing of the posterior fossa. Areas of restricted diffusion are more pronounced than on the previous study. On the FLAIR images, areas of T2 hyperintensity in the subcortical and periventricular deep white matter, larissa, bilateral occipital regions, more pronounced than previous. Periventricular and subcortical T2 hyperintensities are again seen. Area of T2 hyperintensity in the basal ganglia on the left side involving the lentiform nucleus stable. T2-weighted images demonstrate flow voids within the left vertebral artery with asmall caliber right vertebral artery incompletely seen. Basilar artery patent. Intracranial internal carotid arteries, anterior middle cerebral arteries patent. Deep venous sinuses appear to be patent. Bilateral cataract surgery. Paranasal sinuses and mastoid air cells normally pneumatized. Susceptibility images demonstrate a punctate hemosiderin stain in the medulla dorsally, the right occipitalregion, small area in the left occipital region, left frontal region, right parietal lobe, left frontal lobe. Impression: Multiple acute infarcts bilaterally with restricted diffusion. Multi vascular distribution raise the possibility of either embolic phenomenon versus watershed infarcts. Significant atrophy and small vessel disease. Old hemorrhagic changes. Electronically signed by: Yordan Dai M.D. CTA/CTP Rapid Stroke (C) Result Date: 11/15/2024 Narrative: EXAMINATION: Computed tomography angiography (CTA) of the head with contrast; Computed tomography angiography (CTA) of the neck with contrast. CT perfusion imaging of the head with contrast HISTORY: Suspected hyperacute stroke. 74-year-old man unresponsive history of hypertension TECHNIQUE: . Computed tomographic angiography was obtained from the level of the aortic arch to the vertex following the uneventful administration of intravenous contrast according to hyperacute stroke protocol. 3D images were generated on a dedicated workstation. CT perfusion of the brain was performed with intravenous contrast using a separate data acquisition. The data was transmitted to a separate wor kstation for processing by RAPID software ([employer]) to produce automated calculations of the estimated cerebral blood flow and Tmax. Contrast information: 120 mL Optiray-350 COMPARISON: 10/25/2024 and a CAT scan without contrast earlier today. FINDINGS: HEAD CT FINDINGS: Source images demonstrate stable involutional changes with mild prominence of the ventricles and sulci. Normal vascular enhancement is seen within the deep venous sinuses and [place]. No definitive oligemic areas are seen. No abnormal intracranial enhancement is seen. Great vessels the neck are patent with dominance of the left vertebral artery. Calcification is seen at the carotid bifurcations and cavernous carotid arteries. Aortic arch calcifications are seen without aneurysmal dilatation or dissection. Coronary artery calcifications are noted. Lung apices demonstrate no abnormalities. 2-D and 3-D images:ANGIOGRAPHIC FINDINGS: The visualized aortic arch appears normal with normal configuration of the great vessels. There is no significant stenosis of the origins of the great vessels. There is no geographic area of vascular paucity in the brain. Left anterior circulation: L CCA: no occlusion or significant stenosis. Extensive calcification at the bifurcation extending into the proximal internal carotid artery with no hemodynamically significant stenosis. L carotid bifurcation: no occlusion or significant stenosis L ICA proximal: no occlusion or significant stenosis L ICA distal: no occlusion or significant stenosis L ICA terminus: Atherosclerotic calcifications without high-grade stenosis. LM1: no occlusion or significant stenosis L M2 branches: Dense calcifications with irregularity with mild nonhemodynamically significant stenosis of the trifurcation L A2: no occlusion or significant stenosis. Hypoplastic A1 segment with patent anterior communicating artery. Right anterior circulation: R CCA: Atherosclerotic calcifications without high-grade stenosis. R carotid bifurcation: Atheros clerosis without hemodynamically significant stenosis R ICA proximal: Tortuosity without stenosis LUIS distal: no occlusion or significant stenosis R ICA terminus: Atherosclerotic calcifications without high-grade stenosis R M1: no occlusion or significant stenosis R M2 branches: no occlusion or significant stenosis R A2: no occlusion or significant stenosis. Anterior communicating artery patentPosterior circulation: L Vertebral Artery: no occlusion or significant stenosis. Dominant left vertebral artery. R Vertebral Artery: There is irregularity with multiple areas of moderate stenosis intracranially Basilar Artery: no occlusion or significant stenosis L CODING CLERK: no occlusion or significant stenosis hypoplastic P1 segment with patent posterior communicating artery R CODING CLERK: Hypoplastic P1 segment patent posterior communicating artery No cerebral aneurysm is seen. There is no evidence for anarteriovenous malformation. There is no suspicious cervical lymphadenopathy. There is no significant cervical spondylosis. Limited views of the lung apices are normal. CT Perfusion: Estimated ischemic core volume (rCBF < 0.3): 7 mL Estimated hypoperfusion volume (Tmax > 6 sec): 7 mL Hypoperfusion index 0.5. Mismatch volume 0. Mismatch ratio 1.0. Impression: No CT evidence of stroke. No significant carotid artery stenosis. Diffuse arteriosclerosis. 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 Electronically signed by: Yordan Dai M.D. CT Stroke Head WO Contrast Result Date: 11/15/2024 Narrative: EXAMINATION: CT STROKE HEAD WO CONTRAST dated 11/15/2024 7:20 AM. HISTORY: Code stroke 74-year-old man history of hypertension vascular disease heart disease. FINDINGS: Comparison is made with an MRI dated 10/25/2024. Additionally patient has a CAT scan from 10/25/2024. Lien Searcher radiograph de monstrates no acute findings. Transaxial images demonstrate stable involutional changes with large ventricles and sulci beyond expectations of the patient's age. Extensive periventricular lucencies reflect chronic microvascular disease. Since the previous CAT scan interval development of area of low CT attenuation in the right parieto-occipital lobe. Small area seen on the left parieto- occipital lobe. No hemorrhagic findings. No midline shift. Arteriosclerosis. Craniovertebral junction normal. Normal pituitary fossa. Mucosal thickening in the floor the maxillary sinuses. No bony abnormalities Impression: ATROPHY SMALL VESSEL DISEASE ATHEROSCLEROSIS. DEVELOPMENT OF OCCIPITAL INFARCTS GREATERON THE RIGHT THAN THE LEFT WHICH WAS SEEN ON THE PREVIOUS MRI. NO HEMORRHAGIC CHANGES Electronically signed by: Yordan Dai M.D. XR Chest 1 View Result Date: 2024 Narrative: EXAMINATION: XR CHEST 1 VIEW HISTORY: The patient is a 74-year-old male who presents with shortness of breath. Comparison made with the previous study dated 10/25/2024. TECHNIQUE: AP portable view of the chest. FINDINGS: Lungs clear. Cardiovascular structures unremarkable. Impression: No active disease. Electronically signed by: Solis Stahl M.D. XR Knee Left 1 or 2 Views Result Date: 11/11/2024 Narrative: EXAMINATION: XR KNEE LEFT 1 OR 2 VIEWS HISTORY: Pain FINDINGS: Severe degenerative changes involving the medial joint space. No fracture or dislocation. No effusion. Vascular calcifications Impression: Significant degenerative changes Electronically signed by: Yordan Dai M.D. ECG 12 lead Result Date: 11/08/2024 Narrative: Vent Rate: 60 bpm RR Interval: 989 msec IA Interval: 269 msec QRS Duration: 107 msec QT Interval: 418 msec QTC Interval: 419 msec P-R-T [place]: 69 - -9 - -3 degrees IMPRESSION: SINUS RHYTHM WITH FIRST DEGREE AV BLOCK WITH OCCASIONAL VENTRICULAR PREMATURE COMPLEXES ABNORMAL ECG Electronically Signed By: Gerard Bauer MD XR Kub Result Date: 10/31/2024 Narrative: EXAMINATION: XR KUB HISTORY: The patient is a 73-year-old male who presents with constipation. TECHNIQUE: Supine view of the abdomen. FINDINGS: Moderate fecal impaction seen in the left colon. No dilated small or large bowel loops. Impression: Fecal impaction. Electronically signed by: Solis Stahl M.D. apixaban, 5 mg, BID atorvastatin, 80 mg, QAM cetirizine, 10 mg, QAM clopidogreL, 75 mg, Daily ezetimibe, 10 mg, Daily famotidine, 20 mg, BID ferrous sulfate, 65 mg of elemental iron, BID with meals (bkfst, dinner) fluticasone propionate, 1 spray, QAM folic acid, 1 mg, Daily lisinopriL, 10 mg, Daily magnesium oxide, 400 mg, BID tamsulosin, 0.4 mg, Daily with dinner thiamine, 100 mg, Daily ASSESSMENT/PLAN: Principal Problem: Fever and chills Possible sepsis Leukocytosis and fever on admission Wbc 33.5 on 11/27/24,20.83 ON 11/28/24, 12.2 ON 11/29/24 AND 9.18 ON 11/30/24 Fever weakness with possible underlying infection of unclear etiology. On cefepime and vancomycin for now. BC pending , resp panel negative , urine with no UTI. CXR with no clear infiltrates. Chest pain will send EKD, troponin series and have cardiology to see. CAD with CABG and stents on ASA , high intensity statin and metoprolol xl. PCI Jun 2024 for complex stenosis of the RCA History of CVA on statin and ASA. Chronic atrial fibrillation on apixaban , metoprolol . Urinary retention on tamsulosin has a urinary catheter now , will need urology as outpatient if fails voiding trial. HTN on lisinopril, metoprolol. Normocytic anemia mild with no active bleeding Mild hyponatremia will trend levels for now. [] I confirmed that the patient's Advance Care Plan is present, code status is documented, or surrogate decision maker is listed in the patient's medical record. Son Card MD * Thursday, INA Berg - 12/01/2024 11:46 AM CDT Occupational Therapy NOTE / SESSION TYPE: DAILY PROGRESS / TREATMENT Patient's Name: Ayad Shipman Age / Sex: 74 y.o. / male Room: [id number] : 1950 Date of service: 12/01/24 TIME IN: 1146 TIME OUT: 1240 Patient Active Problem List Diagnosis Chronic rhinitis Coronary atherosclerosis Essential hypertension Hyperlipidemia Nocturia Wax in ear Diplopia Dizziness and giddiness Rotator cuff arthropathy of right shoulder Anemia Glenohumeral arthritis, right Paresthesia History of stroke Intracranial vascular stenosis Acute CVA (cerebrovascular accident) ([facility]) Altered mental status CVA (cerebrovascular accident due to intracerebral hemorrhage) ([facility]) Episode of unresponsiveness Sepsis ([facility]) Fever and chills Past Medical History: Diagnosis Date Dizziness Hyperlipidemia Hypertension Loss of balance Nocturia Visual disturbance Past Surgical History: Procedure Laterality Date ANKLE SURGERY CORONARY ARTERY BYPASS GRAFT 2005 x4 on Plavix HEART SURGERY LASIK ORAL SURGERY Precautions (including weight-bearing): Fall risk and Bed / chair alarm Subjective: Pt said I need more therapy when do you thing I am going to go down stair request if we can try bathing. Therapy Pain: Pre-therapy pain level: 0 /10 Pain location: No pain - Location N/A Pain Intervention(s): Pain medication administered prior to session Post-therapy pain level: 0 /10 Pain scale reference: 0-10 SCALE Objective: Appearance: Presentation upon OT arrival: Patient Sitting in bedside recliner Presentation upon OT departure: Patient Supine with head of bed elevated Bed / Chair alarm in place and activated upon OT departure: Yes Call light within arms reach of patient at end of session: Yes Completed patient handoff and notified PATENT CLERK / RN, name: Jason , of patient's location and functional status upon completion of session VITAL SIGNS: Heart rate at rest: 57 BPM O2 saturations at rest: 95 % Oxygen LPM: room air Blood pressure at rest: 139/76 seated at bed side recliner Cognitive / Perceptual: A & O x 4 Mobility / Transfers: Bed Mobility: sit to supine requring requring mod assist for R LE management/ CGA for trunk support. Transfer(s): sit to stand at bed side recliner requring min assist x 2 person. Mod vc's for sequencing and proper auto body repairer with increased time Pt performed functional stand piviot transfer from at bed side recliner to bed with use of w/w requiring min assist x 2 person for safety and balance. with mod vc???s and tactile cues sequencing and waker management. Living Skills / Other Activities: Bathing: Patient completed spongebathing including all components while Sitting in bedside chair / recliner and Standing at bed side recliner with overall Maximal assistance. Patient required assistance for right arm, perineal area, buttocks, left upper leg, right upper leg, left lower leg, including foot, right lower leg, including foot, physical assistance for balance, verbal cue(s), sequencing, set-up of items, increased time to complete, and safety. UE dressing: Patient completed upper body dressing of Hospital gown while Sitting in bedside chair / recliner with overall Maximal assistance. Patient required assistance for threading RUE, threading LUE, pullingdown in back, fasteners, verbal cue(s), sequencing, and set-up of items. Footwear: Patient completed footwear of Sock(s) while Sitting in bedside chair / recliner with overall Maximal assistance. Patient required assistance for donning / doffing right sock / footie, donning / doffing left sock / footie, verbal cue(s), sequencing, set-up of items, increased time to complete, and safety Caregiver Present: No Education & Training Provided: Role of OT, OT plan of care, ADL training, Bed mobility training, Functional transfer training, Safety education, Cognitive re- orientation, Energy conservation education, and Visual / Perceptual skills Assessment: Activity tolerance / response to OT session: decreased endurance, safety awareness, fatigue , GOOD PARTICIPATION, GOOD MOTIVATION, and RECEPTIVE TO EDUCATION / TRAINING Progress towards goals: Please refer to care plan from this date for progress towards individual goals Plan: Therapy Plan: Rehab Potential (Prognosis): good OT Recommendations This Date: OT RECOMMENDATIONS: OT Recommendation: Inpatient Rehab Facility Flow sheet updated and OT Consultation in Regards to Change in Discharge Recommendations: YES /NO: No Additional recommendation comments: Recommend Inpatient Rehab/Acute Rehab due to: Ability to actively participate in intensive therapy 3 hours/day, 5 days/week or 900 minutes per week, Highly motivated to participate in therapy, Not at baseline due to impaired ability to complete ADLs, Impaired ability to complete functional mobility, Likely to return to the community at discharge with support system in place, Requires greater than 25% physical assistance with most mobility tasks, Requires greater than 25% physical assistance with most ADL tasks, Requires multiple therapy disciplines to address functional deficits Frequency of therapy:OT Frequency during current admission: 3-5x/wk If this is the last note, consider this the discharge summary Otis ThursdayINA 12/01/24 Cosigned by Briana Perez OT at 12/05/2024 7:28 AM CDT * Sage Tillman MD - 12/01/2024 9:08 AM CDT [facility] - Cardiology [facility] Progress Note Admit Date: 11/27/2024 9:48 AM @JORDYN@ PCP: Raquel Callejas MD Patient seen and examined Chart , telemtry reviewed Symptoms Patient denies chest pain, dyspnea, palpitations, sweating or syncope. Says he is confused Data Vitals: 11/30/24203812/01/24 0016 12/01/24 0815 12/01/24 0831 BP: 153/75 153/61 143/72 BP Location: Right arm Left arm Left arm Patient Position: Lying Lying HOB 30 degrees Pulse: (!) 45 51 60 56 Resp: Temp: 37.1 ??C (98.8 ??F) 36.8 ??C (98.2 ??F) TempSrc: Oral SpO2: 98% 96% Weight: Height: Intake/Output Summary (Last 24 hours) at 12/01/2024 0908 Last data filed at 12/01/2024 0600 Gross per 24 hour Intake 480 ml Output 1250 ml Net -770 ml Lab Results Component Value Date WBC 8.01 12/01/2024 WBC 9.18 11/30/2024 WBC 12.20 (H) 11/29/2024 HGB 10.5 (L) 12/01/2024 HGB 10.6 (L) 11/30/2024 HGB 10.5 (L) 11/29/2024 HCT 32.4 (L) 12/01/2024 HCT 31.8 (L) 11/30/2024 HCT 32.6 (L) 11/29/2024 Lab Results Component Value Date SODIUM 132 (L) 12/01/2024 SODIUM 132 (L) 11/30/2024 SODIUM 131 (L) 11/29/2024 POTASSIUM 3.5 12/01/2024 POTASSIUM 3.8 11/30/2024 POTASSIUM 4.1 11/29/2024 CHLORIDE 100 12/01/2024 CHLORIDE 102 11/30/2024 CHLORIDE 101 11/29/2024 CO2 21 (L) 12/01/2024 CO2 19 (L) 11/30/2024 CO2 20 (L) 11/29/2024 CREATININE 0.71 (L) 12/01/2024 CREATININE 0.66 (L) 11/30/2024 CREATININE 0.71 (L) 11/29/2024 GLUCOSE 107 12/01/2024 GLUCOSE 106 11/30/2024 GLUCOSE 112 11/29/2024 CALCIUM 9.0 12/01/2024 CALCIUM 8.9 11/30/2024 CALCIUM 9.0 11/29/2024 No results found for: PTT No results found for: PT No results found for: INR No results found for: BNP No components found for: TROPONIN No results found for: CHOL, TRIG, HDL, LDLCALC No results found for: ALBUMIN, ALKPHOS, ALT, AST No components found for: MAGMGDL No results found for: TSH No results found for: T3FREE No results found for: [id number] Meds MEDICATIONS FOR CURRENT ENCOUNTER: SCHEDULED MEDICATIONS: Scheduled Medications Medication Dose Route Frequency apixaban (ELIQUIS) tablet 5 mg 5 mg oral BID atorvastatin (LIPITOR) tablet 80 mg 80 mg oral QAM cetirizine (ZyrTEC) tablet 10 mg 10 mg oral QAM clopidogreL (PLAVIX) tablet 75 mg 75 mg oral Daily ezetimibe (ZETIA) tablet 10 mg 10 mg oral Daily famotidine (PEPCID) tablet 20 mg 20 mg oral BID ferrous sulfate delayed release tablet 65 mg of elemental iron 65 mg of elemental iron oral BID with meals (bkfst, dinner) fluticasone propionate (FLONASE) 50 mcg/actuation nasal spray 1 spray 1 spray each nostril QAM folic acid (FOLVITE) tablet 1 mg 1 mg oral Daily lisinopriL (PRINIVIL,ZESTRIL) tablet 10 mg 10 mg oral Daily magnesium oxide (MAG-OX) tablet 400 mg 400 mg oral BID metoprolol tartrate (LOPRESSOR) immediate release tablet 25 mg 25 mg oral BID tamsulosin (FLOMAX) extended release capsule 0.4 mg 0.4 mg oral Daily with dinner thiamine (VITAMIN B-1) tablet 100 mg 100 mg oral Daily CONTINUOUS MEDICATIONS: Continuous Medications Medication Dose Last Rate PRN MEDICATIONS: PRN Medications Medication Dose Route Frequency Last Admin acetaminophen (TYLENOL) tablet 650 mg 650 mg oral Q6H PRN 650 mg at 11/27/242035 artificial tears (ksctvow-olvipwyrszxo-zopvctrg) (GENTEAL TEARS MODERATE) 0.1-0.3-0.2 % ophthalmic solution 1 drop 1 drop each eye QID PRN 1 drop at 11/28/24924 docusate sodium (COLACE) capsule 100 mg 100 mg oral BID PRN 100 mg at 11/28/24927 ondansetron (ZOFRAN) injection 4 mg 4 mg intravenous Q4H PRN 4 mg at 11/30/242031 ramelteon (ROZEREM) tablet 8 mg 8 mg oral Nightly PRN 8 mg at 11/29/242115 sodium chloride 0.9% flush 10 mL 10 mL intravenous PRN 10 mL at 11/29/24 1308 Allergies Allergen Reactions Meperidine Vomiting, Other (See comments) and Nausea & Vomiting Review of Systems: All systems were reviewed. Pertinent positives are mentioned above. Exam General appearance: alert, cooperative, no distress Neck: No JVD. No carotid Bruit Chest: Adequate air entry bilaterally,few basal crepts Cardiovascular: regular rate, rhythm, normal S1 and S2, without rub, gallops PSM 2/ Abdomen: soft without mass, non-tender, with normal bowel sounds Extremities: no clubbing, cyanosis or edema. Peripheral pulse palpable Assessment /Plan Chest tightness -EKG with no acute changes -hx of CAD as noted below Stress test was within normal limits no additional cardiac testing is indicated CAD s/p CABG -last cath 06/2024 -s/p PCI 06/2024 with complex stenosis in the RCA -patient with chest tightness on admit, stress test this afternoon for stratification HTN -episodes of elevated BP -monitor and adjust meds as needed History of Afib -On apixaban 5 mg twice daily In sinus rhythm at present Dyslipidemia -On atorvastatin and Zetia LDL cholesterol is acceptable Hx of CVA -continue statin/Plavix Confusion hospitalists are managing Bradycardia. Will discontinue the beta-alexandria place patient back on telemetry Sage Tillman MD * Minerva Darby, GEOSCIENCE PROFESSOR - 12/01/2024 9:05 AM CDT Physical Therapy PT PROGRESS NOTE PATIENT'S NAME:Ayad Shipman :1950 AGE:74 y.o. ROOM:[facility]/[place] [id number] Past Medical History: Diagnosis Date Dizziness Hyperlipidemia Hypertension Loss of balance Nocturia Visual disturbance Past Surgical History: Procedure Laterality Date ANKLE SURGERY CORONARY ARTERY BYPASS GRAFT 2005 x4 on Plavix HEART SURGERY LASIK ORAL SURGERY Patient Active Problem List Diagnosis Chronic rhinitis Coronary atherosclerosis Essential hypertension Hyperlipidemia Nocturia Wax in ear Diplopia Dizziness and giddiness Rotator cuff arthropathy of right shoulder Anemia Glenohumeral arthritis, right Paresthesia History of stroke Intracranial vascular stenosis Acute CVA (cerebrovascular accident) ([facility]) Altered mental status CVA (cerebrovascular accident due to intracerebral hemorrhage) ([facility]) Episode of unresponsiveness Sepsis ([facility]) Fever and chills TIME IN: 08 TIME OUT: 09 SUBJECTIVE I'm all confused MENTAL STATUS/ORIENTATION: alert and oriented x4 PAIN: Pre-therapy pain level: 0/10 Pain location: n/a Pain intervention: n/a Post-therapy pain level/response to intervention: 0/10 OBJECTIVE PRECAUTIONS: fall and bed / chair alarm APPEARANCE/POSTURE: supine in bed HOB elevated condom catheter in place soft touch call light next to patient alarm on and in place VITAL SIGNS: Resting BP: 162/68 Post-activity BP: 128/74 Resting heart rate: 60 Post-activity heart rate: 65 Resting O2 sat: 98% Post-activity O2 sat: 95% MOBILITY DOCUMENTATION: Bed Mobility/Transfers: supine to sit mod assist, sit to/from stand max assist of 1, bed to bed side commode max assist of 1 min of 1 , bed side commode to bed side recliner mod of 1 stand pivot withw/w Gait: n/a TREATMENT: Sat EOB 10 minutes fair+ sitting balance Continent of bowel movement on bed side commode with increased time Sitting le ex x 10 reps APPEARANCE/POSTURE (end of session): sitting in bed side recliner stacia le elevated appearance otherwise unchanged from PT arrival in room HANDOFF: Verbal handoff given to nurse Jason. ALARMS: Chair alarm in place / active EDUCATION:bed mobility , functional transfer training, strengthening, safety , and positioning RESPONSE TO EDUCATION: demonstrated understanding, needs reinforcement, and verbalizes understanding ASSESSMENT Activity tolerance/response to P.T.: patient todd tx session with some c/o fatigue with activity, motivated to perform all activities, able to transfer mod assist of 1 stand pivot with w/w Barriers to learning: Physical Barriers to discharge: Limited family support, Cognitive deficit, Limited safety awareness, Decreased endurance, Decreased proprioception, Upper extremity weakness, Lower extremity weakness, Long standing deficits, Impaired vision, Incontinence of bladder, Medical complications, and Stairs at home Patient continues progressing toward previously set goals which remain appropriate at this time. PLAN PT Discharge Recommendations this date: PT Recommendation/Plan: Inpatient Rehab Facility Patient at high risk for: Falls, Readmission, Injury due to decreased ability to care for self, Injury due to reduced functional status, Injury due to balance deficits, Injury at home as patient has not returned to prior level of function Recommend Inpatient Rehab/Acute Rehab due to: Ability to actively participate in intensive therapy 3 hours/day, 5 days/week or 900 minutes per week, Highly motivated to participate in therapy, Not atbaseline due to impaired ability to complete ADLs, Impaired ability to complete functional mobility, Likely to return to the community at discharge with support system in place, Requires greater than25% physical assistance with most mobility tasks, Requires greater than 25% physical assistance with most ADL tasks, Requires multiple therapy disciplines to address functional deficits, Patient and caregiver require specialized skilled training due to new level of function/diagnosis, Requires skilled therapy interventions to address neurological deficits PT Frequency during current admission: Daily CARE PLAN Multi-Disciplinary Problems (from Physical Therapy) Active Problems Problem: PT Misc Start Date: 11/28/24 Goal Start Date Expected End Date End Date PT LTG - perform sup to sit with min A 11/28/24 12/05/24 -- Progressing Goal Start Date Expected End Date End Date PT LTG - perform sit to stand with min A 11/28/24 12/05/24 -- Progressing Goal Start Date Expected End Date End Date PT LTG - perform gait with wh walker 50 feet with min A 11/28/24 12/05/24 -- Progressing Goal Start Date Expected End Date End Date PT LTG -perform sitting balance with good balance dynamic x 5 min 11/28/24 12/05/24 -- Progressing If this is the last note, please consider this the discharge summary. Cosigned by Bebe Pulido PT at 12/01/2024 4:16 PM CDT * Son Card MD - 11/30/2024 3:15 PM CDT General Medicine Daily Progress SUBJECTIVE: Chief complaint of Fever and chills. Interval History: Chart reviewed and Pt examined Admit HPI Patient is a 74 y.o. male with past medical history of CVA on 10/23, CAD s/p CABG, atrial fibrillation, urinary retention, hyperlipidemia, diplopia and hypertension who presented as a direct admit from [facility] after being noted with fevers overnight, elevated WBCs up to 33, incontinence of urine and fatigue. Of note, patient was recently admitted here at [facility] on 11/15 and transferred to rehab on 11/18 after being treated for possible UTI with cefdinir until 11/24. Currently patient reports ongoing fatigue and generalized weakness. He denies any other associated symptoms. Denies chest pain, SOB, abdominal pain, constipation, diarrhea, dysuria, chills or fever. Initial workup showed urinalysis being negative after recently being treated with cefdnir. CT chestabdomen pelvis possible underlying cystitis, incidental cecal thickening. High attenuation of the renal. Metastasis that may represent medullary nephrocalcinosis or underlying dehydration state. Due to above, patient will be admitted for further evaluation, care and management 11/29/24 Vital signs reviewed CBC,BMP,Calcium ordered and reviewed Discussed with director social and case management 11/30/24 Met with his at the bedside Vital signs reviewed CBC,bmp,Calcium ordered and reviewed Stress test negative Review of Systems Constitutional: Positive for activity change and fatigue. HENT: Negative. Eyes: Negative. Respiratory: Negative. Cardiovascular: Negative. Gastrointestinal: Negative. Endocrine: Negative. Genitourinary: Negative. Musculoskeletal: Negative. Allergic/Immunologic: Negative. Neurological: Negative. Hematological: Negative. Psychiatric/Behavioral: Negative. OBJECTIVE: Vitals: 24hr Min/Max: Temp Min: 36.3 ??C (97.3 ??F) Max: 36.8 ??C (98.2 ??F) Pulse Min: 51 Max: 60 BP Min: 155/65 Max: 164/58 Resp Min: 18 Max: 19 SpO2 Min: 97 % Max: 97 % Most Recent : Vitals: 11/29/24 1444 11/29/24199911/30/24 0049 11/30/24 0800 BP: 170/71 155/65 156/59 164/58 BP Location: Left arm Left arm Left arm Left arm Patient Position: Lying Lying HOB 30 degrees Pulse: 53 51 55 60 Resp: 18 19 19 18 Temp: 36.7 ??C (98 ??F) 36.8 ??C (98.2 ??F) 36.7 ??C (98.1 ??F) 36.3 ??C (97.3 ??F) TempSrc: Oral Oral Oral Oral SpO2: 96% 97% 97% 97% Weight: Height: I/O last 2 completed shifts: In: 470 [P.O.:470] Out: 1150 [Urine:1150] I/O this shift: In: 700 [P.O.:700] Out: - Physical Exam: Physical Exam Vitals and nursing note reviewed. Constitutional: Appearance: Normal appearance. HENT: Head: Normocephalic. Nose: Nose normal. Mouth/Throat: Mouth: Mucous membranes are moist. Eyes: General: No scleral icterus. Right eye: No discharge. Left eye: No discharge. Extraocular Movements: Extraocular movements intact. Conjunctiva/sclera: Conjunctivae normal. Pupils: Pupils are equal, round, and reactive to light. Cardiovascular: Rate and Rhythm: Normal rate and regular rhythm. Pulses: Normal pulses. Comments: Healed median sternotomy Pulmonary: Effort: Pulmonary effort is normal. Breath sounds: Normal breath sounds. No wheezing. Abdominal: General: Abdomen is flat. Bowel sounds are normal. There is no distension. Musculoskeletal: General: Normal range of motion. Cervical back: Normal range of motion and neck supple. Right lower leg: No edema. Left lower leg: No edema. Comments: Healed anterior left shoulder surgical scar Skin: General: Skin is warm. Neurological: General: No focal deficit present. Mental Status: He is alert and oriented to person, place, and time. Psychiatric: Mood and Affect: Mood normal. Behavior: Behavior normal. Lab/Radiology/Diagnostic Review: Recent Results (from the past 24 hours) CBC without differential Collection Time: 11/30/24 5:09 AM Result Value Ref Range WBC 9.18 3.80 - 9.90 K/cumm Hgb 10.6 (L) 13.0 - 17.5 g/dL Hct 31.8 (L) 38.9 - 50.3 % Plt 347 150 - 400 K/cumm MPV 9.4 9.1 - 12.3 fL RBC 3.62 (L) 4.30 - 5.80 M/cumm MCV 87.8 81.3 - 96.4 fL MCH 29.3 27.1 - 33.3 pg MCHC 33.3 32.3 - 35.7 g/dL RDW CV 13.9 11.1 - 14.9 % RDW SD 45.1 35.7 - 48.1 fL NRBC abs 0.00 0.00 - 0.01 K/cumm Basic metabolic panel Collection Time: 11/30/24 5:09 AM Result Value Ref Range Sodium 132 (L) 135 - 145 mmol/L Potassium, pl 3.8 3.3 - 4.9 mmol/L Chloride 102 97 - 110 mmol/L CO2 19 (L) 22 - 32 mmol/L Anion gap 11 2 - 15 mmol/L BUN 12 6 - 25 mg/dL Creatinine 0.66 (L) 0.80 - 1.30 mg/dL Glucose 106 70 - 199 mg/dL Calcium 8.9 8.5 - 10.3 mg/dL eGFR Collection Time: 11/30/24 5:09 AM Result Value Ref Range eGFR >90 >=60 mL/min/1.73 m2 ECG 12 lead Result Date: 11/28/2024 Narrative: Vent Rate: 51 bpm RR Interval: 1162 msec IA Interval: 258 msec QRS Duration: 118 msec QTInterval: 442 msec QTC Interval: 419 msec P-R-T [place]: -76 - 2 - 21 degrees IMPRESSION: SINUS BRADYCARDIA WITH FIRST DEGREE AV BLOCK WITH OCCASIONAL SUPRAVENTRICULAR PREMATURE COMPLEXES SEPTAL MYOCARDIAL INFARCTION , OF INDETERMINATE AGE [40+ ms Q WAVE IN V1/V2] ABNORMAL ECG NO CHANGE FROM PREVIOUS TRACING NOTED Electronically Signed By: Murphy Gaitan MD XR Chest 1 View Result Date: 11/28/2024 Narrative: EXAMINATION: XR CHEST 1 VIEW DATE: 11/28/2024 10:00 AM HISTORY: Shortness of breath heartdisease FINDINGS:Compared with the study of 11/25/2024, postsurgical changes in the heart and mediastinum with cardiomegaly. No failure fluid infiltrates or pneumothorax. Right shoulder arthroplasty Impression: Cardiomegaly. No active disease. Electronically signed by: Yordan Dai M.D. CT Chest Abdomen Pelvis WO Contrast Result Date: 11/27/2024 Narrative: EXAMINATION: CT CHEST ABDOMEN PELVIS WO CONTRAST TECHNIQUE: Computed tomographic examination the chest, abdomen and pelvis was performed with intravenous contrast using standard protocol. HISTORY: Increased white count COMPARISON:I do not have a prior study available for comparison FINDINGS: CHEST: There is reticulation at the lung bases that may represent interstitial lung abnormalities. There is no honeycombing or traction bronchiectasis. There are no pulmonary nodules or masses that would suggest primary or metastatic disease. No pleural effusion pneumothorax or focal consolidation present. There is no supraclavicular mediastinal or hilar lymphadenopathy measuring greater than10 mm. Changes compatible with prior coronary artery bypass grafting noted. There is three-vessel coronary artery calcification. There is no pericardial thickening or effusion. Abdomen pelvis: Liver pancreas and gallbladder are normal. There is bilateral renal cysts. Nonobstructing renal calculi noted bilaterally. In addition, there is high attenuation of the renal Minutes. This may represent a dehydration state or conceivably medullary nephrocalcinosis. There is diffuse atherosclerotic diseaseof the aorta and branch vessels. There is diverticulosis no acute diverticulitis. There is a thick-walled bladder with inflammatory stranding suggesting possible cystitis. Enlarged prostate gland noted. Limited evaluation of the cecum demonstrates asymmetric thickening. While this is nonspecific and could represent mucosal collapse in there is clinical concern for any underlying malignancy I would recommend further evaluation with endoscopy. Osseous windows demonstrate no lytic or blastic lesions. Multilevel degenerative disc disease noted. Impression: 1. Possible underlying cystitis. 2. Recommend follow up of the Incidental cecal thickening Additional Imaging In 1 Month with referral to gastroenterology and possible endoscopy. 3. [place] of the renal. Metastases that may represent medullary nephrocalcinosis or underlying deh ydration state.. Electronically signed by: Migue Falk M.D., MPH XR Chest 1 View Result Date: 11/26/2024 Narrative: EXAMINATION: XR CHEST 1 VIEW Impression: Comparison with 2024. The lung volumes are small resulting in pulmonary vascular crowding. There is no focal pneumonic consolidation pneumothorax or pleural effusion. There is a tortuous atherosclerotic aorta. There is mild cardiomegaly. Sternal wires are midline and nondisplaced. Electronically signed by: Migue Falk M.D., MPH EEG Result Date: 11/16/2024 Narrative: This EEG was performed for evaluation of an episode of unresponsiveness. This EEG was recorded during wakefulness and drowsiness using a 16 channel EEG machine utilizing the international 10 20 system of electrode placement with bipolar and monopolar montages. The EEG was characterized by a moderate amount of muscle tension and movement artifact. The patient's waking background electrical activity consists of low voltage 8-9 hertz alpha waves best seen in the posterior head regions. During periods of drowsiness 6-7 hertz theta waves of medium voltage predominate. No focal slowing paroxysmal or epileptiform activity is seen. Impression: Normal EEG during wakefulness and drowsiness. Clinical correlation is recommended. MRI Brain WO Contrast Result Date: 11/16/2024 Narrative: EXAMINATION: MRI BRAIN WO CONTRAST HISTORY: 74-year-old man strokelike symptoms history of heart disease hypertension vascular disease TECHNIQUE: Multiplanar multisequence spin-echo imagesobtained FINDINGS: Correlation is made with an MRI dated 10/25/2024, noncontrast CT of 11/15/2024 and a CTA of 11/15/2024. Stable involutional changes with large ventricles and sulci beyond expectations of the patient's age. Diffusion images abnormal with multiple punctate areas of restricted diffusion, in the centrum semi-Milligan bilaterally of the frontal and parietal regions, right occipital cortex, subfrontal right deep white matter, left occipital region. Sparing of the posterior fossa. Areas of restricted diffusion are more pronounced than on the previous study. On the FLAIR images, areas of T2 hyperintensity in the subcortical and periventricular deep white matter, larissa, bilateral occipital regions, more pronounced than previous. Periventricular and subcortical T2 hyperintensities are again seen. Area of T2 hyperintensity in the basal ganglia on the left side involving the lentiform nucleus stable. T2-weighted images demonstrate flow voids within the left vertebral artery with asmall caliber right vertebral artery incompletely seen. Basilar artery patent. Intracranial internal carotid arteries, anterior middle cerebral arteries patent. Deep venous sinuses appear to be patent. Bilateral cataract surgery. Paranasal sinuses and mastoid air cells normally pneumatized. Susceptibility images demonstrate a punctate hemosiderin stain in the medulla dorsally, the right occipitalregion, small area in the left occipital region, left frontal region, right parietal lobe, left frontal lobe. Impression: Multiple acute infarcts bilaterally with restricted diffusion. Multi vascular distribution raise the possibility of either embolic phenomenon versus watershed infarcts. Significant atrophy and small vessel disease. Old hemorrhagic changes. Electronically signed by: Yordan Dai M.D. CTA/CTP Rapid Stroke (C) Result Date: 11/15/2024 Narrative: EXAMINATION: Computed tomography angiography (CTA) of the head with contrast; Computed tomography angiography (CTA) of the neck with contrast. CT perfusion imaging of the head with contrast HISTORY: Suspected hyperacute stroke. 74-year-old man unresponsive history of hypertension TECHNIQUE: . Computed tomographic angiography was obtained from the level of the aortic arch to the vertex following the uneventful administration of intravenous contrast according to hyperacute stroke protocol. 3D images were generated on a dedicated workstation. CT perfusion of the brain was performed with intravenous contrast using a separate data acquisition. The data was transmitted to a separate wor kstation for processing by RAPID software ([employer]) to produce automated calculations of the estimated cerebral blood flow and Tmax. Contrast information: 120 mL Optiray-350 COMPARISON: 10/25/2024 and a CAT scan without contrast earlier today. FINDINGS: HEAD CT FINDINGS: Source images demonstrate stable involutional changes with mild prominence of the ventricles and sulci. Normal vascular enhancement is seen within the deep venous sinuses and [place]. No definitive oligemic areas are seen. No abnormal intracranial enhancement is seen. Great vessels the neck are patent with dominance of the left vertebral artery. Calcification is seen at the carotid bifurcations and cavernous carotid arteries. Aortic arch calcifications are seen without aneurysmal dilatation or dissection. Coronary artery calcifications are noted. Lung apices demonstrate no abnormalities. 2-D and 3-D images:ANGIOGRAPHIC FINDINGS: The visualized aortic arch appears normal with normal configuration of the great vessels. There is no significant stenosis of the origins of the great vessels. There is no geographic area of vascular paucity in the brain. Left anterior circulation: L CCA: no occlusion or significant stenosis. Extensive calcification at the bifurcation extending into the proximal internal carotid artery with no hemodynamically significant stenosis. L carotid bifurcation: no occlusion or significant stenosis L ICA proximal: no occlusion or significant stenosis L ICA distal: no occlusion or significant stenosis L ICA terminus: Atherosclerotic calcifications without high-grade stenosis. LM1: no occlusion or significant stenosis L M2 branches: Dense calcifications with irregularity with mild nonhemodynamically significant stenosis of the trifurcation L A2: no occlusion or significant stenosis. Hypoplastic A1 segment with patent anterior communicating artery. Right anterior circulation: R CCA: Atherosclerotic calcifications without high-grade stenosis. R carotid bifurcation: Atheros clerosis without hemodynamically significant stenosis R ICA proximal: Tortuosity without stenosis LUIS distal: no occlusion or significant stenosis R ICA terminus: Atherosclerotic calcifications without high-grade stenosis R M1: no occlusion or significant stenosis R M2 branches: no occlusion or significant stenosis R A2: no occlusion or significant stenosis. Anterior communicating artery patentPosterior circulation: L Vertebral Artery: no occlusion or significant stenosis. Dominant left vertebral artery. R Vertebral Artery: There is irregularity with multiple areas of moderate stenosis intracranially Basilar Artery: no occlusion or significant stenosis L CODING CLERK: no occlusion or significant stenosis hypoplastic P1 segment with patent posterior communicating artery R CODING CLERK: Hypoplastic P1 segment patent posterior communicating artery No cerebral aneurysm is seen. There is no evidence for anarteriovenous malformation. There is no suspicious cervical lymphadenopathy. There is no significant cervical spondylosis. Limited views of the lung apices are normal. CT Perfusion: Estimated ischemic core volume (rCBF < 0.3): 7 mL Estimated hypoperfusion volume (Tmax > 6 sec): 7 mL Hypoperfusion index 0.5. Mismatch volume 0. Mismatch ratio 1.0. Impression: No CT evidence of stroke. No significant carotid artery stenosis. Diffuse arteriosclerosis. 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 Electronically signed by: Yordan Dai M.D. CT Stroke Head WO Contrast Result Date: 11/15/2024 Narrative: EXAMINATION: CT STROKE HEAD WO CONTRAST dated 11/15/2024 7:20 AM. HISTORY: Code stroke 74-year-old man history of hypertension vascular disease heart disease. FINDINGS: Comparison is made with an MRI dated 10/25/2024. Additionally patient has a CAT scan from 10/25/2024. Lien Searcher radiograph de monstrates no acute findings. Transaxial images demonstrate stable involutional changes with large ventricles and sulci beyond expectations of the patient's age. Extensive periventricular lucencies reflect chronic microvascular disease. Since the previous CAT scan interval development of area of low CT attenuation in the right parieto-occipital lobe. Small area seen on the left parieto- occipital lobe. No hemorrhagic findings. No midline shift. Arteriosclerosis. Craniovertebral junction normal. Normal pituitary fossa. Mucosal thickening in the floor the maxillary sinuses. No bony abnormalities Impression: ATROPHY SMALL VESSEL DISEASE ATHEROSCLEROSIS. DEVELOPMENT OF OCCIPITAL INFARCTS GREATERON THE RIGHT THAN THE LEFT WHICH WAS SEEN ON THE PREVIOUS MRI. NO HEMORRHAGIC CHANGES Electronically signed by: Yordan Dai M.D. XR Chest 1 View Result Date: 2024 Narrative: EXAMINATION: XR CHEST 1 VIEW HISTORY: The patient is a 74-year-old male who presents with shortness of breath. Comparison made with the previous study dated 10/25/2024. TECHNIQUE: AP portable view of the chest. FINDINGS: Lungs clear. Cardiovascular structures unremarkable. Impression: No active disease. Electronically signed by: Solis Stahl M.D. XR Knee Left 1 or 2 Views Result Date: 11/11/2024 Narrative: EXAMINATION: XR KNEE LEFT 1 OR 2 VIEWS HISTORY: Pain FINDINGS: Severe degenerative changes involving the medial joint space. No fracture or dislocation. No effusion. Vascular calcifications Impression: Significant degenerative changes Electronically signed by: Yordan Dai M.D. ECG 12 lead Result Date: 11/08/2024 Narrative: Vent Rate: 60 bpm RR Interval: 989 msec IA Interval: 269 msec QRS Duration: 107 msec QT Interval: 418 msec QTC Interval: 419 msec P-R-T [place]: 69 - -9 - -3 degrees IMPRESSION: SINUS RHYTHM WITH FIRST DEGREE AV BLOCK WITH OCCASIONAL VENTRICULAR PREMATURE COMPLEXES ABNORMAL ECG Electronically Signed By: Gerard Bauer MD XR Kub Result Date: 10/31/2024 Narrative: EXAMINATION: XR KUB HISTORY: The patient is a 73-year-old male who presents with constipation. TECHNIQUE: Supine view of the abdomen. FINDINGS: Moderate fecal impaction seen in the left colon. No dilated small or large bowel loops. Impression: Fecal impaction. Electronically signed by: Solis Stahl M.D. apixaban, 5 mg, BID atorvastatin, 80 mg, QAM cefepime, 2,000 mg, Q8H JARETH cetirizine, 10 mg, QAM clopidogreL, 75 mg, Daily ezetimibe, 10 mg, Daily famotidine, 20 mg, BID ferrous sulfate, 65 mg of elemental iron, BID with meals (bkfst, dinner) fluticasone propionate, 1 spray, QAM folic acid, 1 mg, Daily lisinopriL, 10 mg, Daily magnesium oxide, 400 mg, BID metoprolol tartrate, 25 mg, BID tamsulosin, 0.4 mg, Daily with dinner thiamine, 100 mg, Daily ASSESSMENT/PLAN: Principal Problem: Fever and chills Possible sepsis Leukocytosis and fever on admission Wbc 33.5 on 11/27/24 Fever weakness with possible underlying infection of unclear etiology. On cefepime and vancomycin for now. BC pending , resp panel negative , urine with no UTI. CXR with no clear infiltrates. Chest pain will send EKD, troponin series and have cardiology to see. CAD with CABG and stents on ASA , high intensity statin and metoprolol xl. PCI Jun 2024 for complex stenosis of the RCA History of CVA on statin and ASA. Chronic atrial fibrillation on apixaban , metoprolol . Urinary retention on tamsulosin has a urinary catheter now , will need urology as outpatient if fails voiding trial. HTN on lisinopril, metoprolol. Normocytic anemia mild with no active bleeding Mild hyponatremia will trend levels for now. [] I confirmed that the patient's Advance Care Plan is present, code status is documented, or surrogate decision maker is listed in the patient's medical record. Son Card MD * Rickie Chew MD - 11/30/2024 11:57 AM CDT Infectious Disease Arelymo Vipul Shipman Admit Date: 11/27/2024 LOS: 3 Days Consulting Physician: Leanne Dockery MD Reason for consult: Leukocytosis Interval Course No new events,stress test was negative Blood cultures remain negative New Symptoms Afebrile, sitting in bed, poor appetite, not sure about the bowel movement, improved WBCs ATBX Cefepime Data Vitals: 11/29/24 1444 11/29/24 2000 11/30/24 0049 11/30/24 0800 BP: 170/71 155/65 156/59 164/58 BP Location: Left arm Left arm Left arm Left arm Patient Position: Lying Lying HOB 30 degrees Pulse: 53 51 55 60 Resp: 18 19 19 18 Temp: 36.7 ??C (98 ??F) 36.8 ??C (98.2 ??F) 36.7 ??C (98.1 ??F) 36.3 ??C (97.3 ??F) TempSrc: Oral Oral Oral Oral SpO2: 96% 97% 97% 97% Weight: Height: Temp (24hrs), Av.6 ??C (97.9 ??F), Min:36.3 ??C (97.3 ??F), Max:36.8 ??C (98.2 ??F) Recent Labs Lab Units 11/30/24 0509 11/29/24 0613 11/28/24 0937 WBC K/cumm 9.18 12.20* 20.83* HEMOGLOBIN g/dL 10.6* 10.5* 10.6* HEMATOCRIT % 31.8* 32.6* 32.7* PLATELETS K/cumm 347 321 298 Recent Labs Lab Units 11/30/24 05011/29/24 0613 11/28/24 0937 BUN SERUM mg/dL 12 14 16 CREATININE mg/dL 0.66* 0.71* 0.74* Scheduled Meds:apixaban, 5 mg, oral, BID atorvastatin, 80 mg, oral, QAM cefepime, 2,000 mg, intravenous, Q8H JARETH cetirizine, 10 mg, oral, QAM clopidogreL, 75 mg, oral, Daily ezetimibe, 10 mg, oral, Daily famotidine, 20 mg, oral, BID ferrous sulfate, 65 mg of elemental iron, oral, BID with meals (bkfst, dinner) fluticasone propionate, 1 spray, each nostril, QAM folic acid, 1 mg, oral, Daily lisinopriL, 10 mg, oral, Daily magnesium oxide, 400 mg, oral, BID metoprolol tartrate, 25 mg, oral, BID tamsulosin, 0.4 mg, oral, Daily with dinner thiamine, 100 mg, oral, Daily Continuous Infusions: PRN Meds:. acetaminophen lubricant docusate sodium ondansetron ramelteon sodium chloride 0.9% Review of Systems: Gen: denies fevers, denies chills, denies sweats, denies unintentional weight loss HEENT: Denies sore throat, denies thrush Neck: Denies palpable lymph nodes, denies neck stiffness Cv: denies chest pain, denies palpitations Resp: Denies SOB, Denies orthopnea Gi: Denies abdominal pain, Denies diarrhea, denies n/v Extrem: Denies gross deformities, denies joint pain, denies myalgias Skin: Denies rashes, denies lesions Neuro: Denies weakness, denies paresthesias, denies memory loss Psych: denies depression, denies anxiety Objective: Vitals: 24hr Min/Max: Temp Min: 36.7 ??C (98.1 ??F) Max: 38.2 ??C (100.8 ??F) Pulse Min: 72 Max: 113 BP Min: 129/71 Max: 173/63 Resp Min: 18 Max: 21 SpO2 Min: 95 % Max: 96 % Physical Exam: General appearance: alert, cooperative, no distress HEENT: (-)icterus, Oropharnyx is normal, NCAT Neck: No palpable LN Lungs: breath sounds normal and symmetric; minimal respiratory effort, no r/w/c Heart: regular rhythm, normal S1 and S2, no m/r/g Abdomen: soft without mass, non-tender, +bowel sounds, no HSM Skin: (-)new rashes, no ulcerations MSK: no gross deformities, FROM Extremities : no Edema, pulses present bilaterally Neuro: No focal deficits Psych: Appropriate mood and affect Lab/Radiology/Diagnostic Review: 11/26 CT chest abdomen pelvis without IMPRESSION: 1. Possible underlying cystitis. 2. Recommend follow up of the Incidental cecal thickening Additional Imaging In 1 Month with referral to gastroenterology and possible endoscopy. 3. High attenuation of the renal. Metastases that may represent medullary nephrocalcinosis or underlying dehydration state.. 11/27 blood cultures currently 11/25 UA negative 11/15 blood culture no growth 11/15 urine culture greater than 1000 colonies of Klebsiella Assessment: Low-grade fever, leukocytosis, unclear source Recent history of UTI treated repeat UA negative Recent history of stroke History of CAD status post CABG Anemia History of CVA with right-sided hemiparesis Plan: DC cefepime, cultures remain negative Trial of laxatives if ongoing constipation Monitor temp and CBC,now normalize Respiratory PCR neg Supportive care * Chava Muhammad PTA - 11/30/2024 10:22 AM CDT Physical Therapy PT PROGRESS NOTE PATIENT'S NAME:Ayad Shipman :1950 AGE:74 y.o. ROOM:[facility] [id number] Past Medical History: Diagnosis Date Dizziness Hyperlipidemia Hypertension Loss of balance Nocturia Visual disturbance Past Surgical History: Procedure Laterality Date ANKLE SURGERY CORONARY ARTERY BYPASS GRAFT 2005 x4 on Plavix HEART SURGERY LASIK ORAL SURGERY Patient Active Problem List Diagnosis Chronic rhinitis Coronary atherosclerosis Essential hypertension Hyperlipidemia Nocturia Wax in ear Diplopia Dizziness and giddiness Rotator cuff arthropathy of right shoulder Anemia Glenohumeral arthritis, right Paresthesia History of stroke Intracranial vascular stenosis Acute CVA (cerebrovascular accident) ([facility]) Altered mental status CVA (cerebrovascular accident due to intracerebral hemorrhage) ([facility]) Episode of unresponsiveness Sepsis ([facility]) Fever and chills TIME IN: 1022 TIME OUT: 1101 SUBJECTIVE Pt requests to transfer to commode vs using bed gonzalez MENTAL STATUS/ORIENTATION: pt alert and cooperative PAIN: Pre-therapy pain level: 0/10 Pain location: n/a Pain intervention: not needed Post-therapy pain level/response to intervention: 0/10 OBJECTIVE PRECAUTIONS: fall, bed/chair alarm, and visual deficits (blurred, double vision and visual field cut) APPEARANCE/POSTURE: Pt supine w/ HOB elevated, on room air, in no distress, bed alarm activated, and pt pleasantly agreeable to therapy MOBILITY DOCUMENTATION: Bed Mobility: Mod assist for rolling using bed rail. Min assist of 1 for supine to sit w/ HOB elevated. Transfers: Min assist of 1 for sit to stand from bed. Mod assist of 1 for bed to commode via stand pivot. Max assist of 1 for sit to stand from commode w/ heavy posterior lean. Max assist of 1 for commode to recliner via stand pivot- heavy posterior lean. Max assist of 1 and min assist of 1 for sitto stand from recliner w/ inability to correct retropulsion and pt pushing walker away from body. Gait: Not safe to perform due to heavy posterior lean this session TREATMENT: Static standing using wheeled walker (depend yandy care): Max assist of 1 and CG/min assist of another for safety. Pt's LE's sliding forward and pt progressively developed posterior lean LE seated marches and LAQ's x 10 reps bilaterally. APPEARANCE/POSTURE (end of session): Pt sitting in recliner w/ chair alarm activated, call light inreach, and handoff given to CHARAN Adorno EDUCATION:bed mobility , therapeutic activity, therapeutic exercises , functional transfer training, endurance training, safety , and durable medical equipment education RESPONSE TO EDUCATION: needs reinforcement ASSESSMENT Activity tolerance/response to P.T.: Pt demonstrated significant retropulsion when in standing. Pt intermittently required assist of 2 for safety. Pt unable to correct posterior lean- gait not achieved Barriers to learning: Physical and Visual Barriers to discharge: Limited insight into deficits, Decreased endurance, Upper extremity weakness, Lower extremity weakness, Long standing deficits, Impaired vision, and Medical complications Patient continues progressing toward previously set goals which remain appropriate at this time. PLAN PT Discharge Recommendations this date: PT Recommendation/Plan: Inpatient Rehab Facility Patient at high risk for: Falls, Readmission, Injury due to decreased ability to care for self, Injury due to reduced functional status, Injury due to balance deficits, Injury at home as patient has not returned to prior level of function Recommend Inpatient Rehab/Acute Rehab due to: Ability to actively participate in intensive therapy 3 hours/day, 5 days/week or 900 minutes per week, Highly motivated to participate in therapy, Not atbaseline due to impaired ability to complete ADLs, Impaired ability to complete functional mobility, Likely to return to the community at discharge with support system in place, Requires greater than25% physical assistance with most mobility tasks, Requires greater than 25% physical assistance with most ADL tasks, Requires multiple therapy disciplines to address functional deficits, Patient and caregiver require specialized skilled training due to new level of function/diagnosis, Requires skilled therapy interventions to address neurological deficits PT Frequency during current admission: Daily CARE PLAN Multi-Disciplinary Problems (from Physical Therapy) Active Problems Problem: PT Misc Start Date: 11/28/24 Goal Start Date Expected End Date End Date PT LTG - perform sup to sit with min A Progressing 11/28/24 12/05/24 -- Goal Start Date Expected End Date End Date PT LTG - perform sit to stand with min A Progressing 11/28/24 12/05/24 -- Goal Start Date Expected End Date End Date PT LTG - perform gait with wh walker 50 feet with min A Progressing 11/28/24 12/05/24 -- Goal Start Date Expected End Date End Date PT LTG -perform sitting balance with good balance dynamic x 5 min Progressing 11/28/24 12/05/24 -- If this is the last note, please consider this the discharge summary. Cosigned by Beatriz Kimball, PT at 11/30/2024 12:59 PM CDT * Sage Tillman MD - 11/30/2024 9:55 AM CDT [facility] - Cardiology [facility] Progress Note Admit Date: 11/27/2024 9:48 AM @JORDYN@ PCP: Raquel Callejas MD Patient seen and examined Chart , telemtry reviewed Symptoms Patient denies chest pain, dyspnea, palpitations, sweating or syncope. Data Vitals: 11/29/24 1444 11/29/24 2000 11/30/24 0049 11/30/24 0800 BP: 170/71 155/65 156/59 164/58 BP Location: Left arm Left arm Left arm Left arm Patient Position: Lying Lying HOB 30 degrees Pulse: 53 51 55 60 Resp: 18 19 19 18 Temp: 36.7 ??C (98 ??F) 36.8 ??C (98.2 ??F) 36.7 ??C (98.1 ??F) 36.3 ??C (97.3 ??F) TempSrc: Oral Oral Oral SpO2: 96% 97% 97% 97% Weight: Height: Intake/Output Summary (Last 24 hours) at 11/30/2024 0955 Last data filed at 11/30/2024 0630 Gross per 24 hour Intake 350 ml Output 950 ml Net -600 ml Lab Results Component Value Date WBC 9.18 11/30/2024 WBC 12.20 (H) 11/29/2024 WBC 20.83 (H) 11/28/2024 HGB 10.6 (L) 11/30/2024 HGB 10.5 (L) 11/29/2024 HGB 10.6 (L) 11/28/2024 HCT 31.8 (L) 11/30/2024 HCT 32.6 (L) 11/29/2024 HCT 32.7 (L) 11/28/2024 Lab Results Component Value Date SODIUM 132 (L) 11/30/2024 SODIUM 131 (L) 11/29/2024 SODIUM 131 (L) 11/28/2024 POTASSIUM 3.8 11/30/2024 POTASSIUM 4.1 11/29/2024 POTASSIUM 3.8 11/28/2024 CHLORIDE 102 11/30/2024 CHLORIDE 101 11/29/2024 CHLORIDE 100 11/28/2024 CO2 19 (L) 11/30/2024 CO2 20 (L) 11/29/2024 CO2 21 (L) 11/28/2024 CREATININE 0.66 (L) 11/30/2024 CREATININE 0.71 (L) 11/29/2024 CREATININE 0.74 (L) 11/28/2024 GLUCOSE 106 11/30/2024 GLUCOSE 112 11/29/2024 GLUCOSE 104 11/28/2024 CALCIUM 8.9 11/30/2024 CALCIUM 9.0 11/29/2024 CALCIUM 8.9 11/28/2024 No results found for: PTT No results found for: PT No results found for: INR No results found for: BNP No components found for: TROPONIN No results found for: CHOL, TRIG, HDL, LDLCALC No results found for: ALBUMIN, ALKPHOS, ALT, AST No components found for: MAGMGDL No results found for: TSH No results found for: T3FREE No results found for: [id number] Pain Assessment: 0-10 Pain Score: 5 - Moderate pain Patient's Stated Pain Goal: 2 Pain Type: Chronic pain Pain Location: Neck Meds MEDICATIONS FOR CURRENT ENCOUNTER: SCHEDULED MEDICATIONS: Scheduled Medications Medication Dose Route Frequency [ - Suspended Admission] apixaban (ELIQUIS) tablet 5 mg 5 mg oral BID apixaban (ELIQUIS) tablet 5 mg 5 mg oral BID [ - Suspended Admission] artificial tears (xtuubaw-yhmiqsciegqg-arjzlnhb) (GENTEAL TEARS MODERATE) 0.1-0.3-0.2 % ophthalmic solution 1 drop 1 drop each eye TID [ - Suspended Admission] atorvastatin (LIPITOR) tablet 80 mg 80 mg oral QAM atorvastatin (LIPITOR) tablet 80 mg 80 mg oral QAM [ - Suspended Admission] baclofen (LIORESAL) tablet 5 mg 5 mg oral TID with meals [ - Suspended Admission] cefepime (MAXIPIME) 2,000 mg in sodium chloride 0.9% 100 mL IVPB 2,000 mg intravenous Q8H JARETH cefepime (MAXIPIME) 2,000 mg in sodium chloride 0.9% 100 mL IVPB 2,000 mg intravenous Q8H JARETH [ - Suspended Admission] cetirizine (ZyrTEC) tablet 10 mg 10 mg oral QAM cetirizine (ZyrTEC) tablet 10 mg 10 mg oral QAM clopidogreL (PLAVIX) tablet 75 mg 75 mg oral Daily [ - Suspended Admission] diclofenac sodium (VOLTAREN) 1 % gel 2 g 2 g topical TID [ - Suspended Admission] ezetimibe (ZETIA) tablet 10 mg 10 mg oral Daily ezetimibe (ZETIA) tablet 10 mg 10 mg oral Daily [ - Suspended Admission] famotidine (PEPCID) tablet 20 mg 20 mg oral BID famotidine (PEPCID) tablet 20 mg 20 mg oral BID [ - Suspended Admission] ferrous sulfate delayed release tablet 65 mg of elemental iron 65 mg of elemental iron oral Daily with breakfast ferrous sulfate delayed release tablet 65 mg of elemental iron 65 mg of elemental iron oral BID with meals (bkfst, dinner) [ - Suspended Admission] FLUoxetine (PROzac) capsule 40 mg 40 mg oral Daily [ - Suspended Admission] fluticasone propionate (FLONASE) 50 mcg/actuation nasal spray 1 spray 1 spray each nostril QAM fluticasone propionate (FLONASE) 50 mcg/actuation nasal spray 1 spray 1 spray each nostril QAM [ - Suspended Admission] folic acid (FOLVITE) tablet 1 mg 1 mg oral Daily folic acid (FOLVITE) tablet 1 mg 1 mg oral Daily [ - Suspended Admission] lidocaine (ASPERCREME) 4 % patch 3 patch 3 patch transdermal Q24H lisinopriL (PRINIVIL,ZESTRIL) tablet 10 mg 10 mg oral Daily [ - Suspended Admission] lisinopriL (PRINIVIL,ZESTRIL) tablet 20 mg 20 mg oral Daily [ - Suspended Admission] magnesium oxide (MAG-OX) tablet 400 mg 400 mg oral Daily magnesium oxide (MAG-OX) tablet 400 mg 400 mg oral BID metoprolol tartrate (LOPRESSOR) immediate release tablet 25 mg 25 mg oral BID [ - Suspended Admission] polyethylene glycol (MIRALAX) packet 17 g 17 g oral Daily [ - Suspended Admission] senna-docusate (PERICOLACE) 8.6-50 mg per tablet 1 tablet 1 tablet oral BID tamsulosin (FLOMAX) extended release capsule 0.4 mg 0.4 mg oral Daily with dinner [ - Suspended Admission] tamsulosin (FLOMAX) extended release capsule 0.8 mg 0.8 mg oral Daily withdinner [ - Suspended Admission] thiamine (VITAMIN B-1) tablet 100 mg 100 mg oral Daily thiamine (VITAMIN B-1) tablet 100 mg 100 mg oral Daily [ - Suspended Admission] traZODone (DESYREL) tablet 50 mg 50 mg oral Nightly [ - Suspended Admission] vancomycin 1,000 mg/200 mL in dextrose 5% (premix) 1,000 mg 15 mg/kg intravenous Daily CONTINUOUS MEDICATIONS: Continuous Medications Medication Dose Last Rate PRN MEDICATIONS: PRN Medications Medication Dose Route Frequency Last Admin [ - Suspended Admission] acetaminophen (TYLENOL) tablet 650 mg 650 mg oral Q6H PRN 650 mg at 11/27/24 0553 acetaminophen (TYLENOL) tablet 650 mg 650 mg oral Q6H PRN 650 mg at 11/27/242035 [ - Suspended Admission] albuterol HFA (PROVENTIL HFA,VENTOLIN HFA,PROAIR HFA) 90 mcg/actuation inhaler 2 puff 2 puff inhalation Q4H PRN (RT) artificial tears (hotjjix-edvqhokikezq-vicktbdd) (GENTEAL TEARS MODERATE) 0.1-0.3-0.2 % ophthalmic solution 1 drop 1 drop each eye QID PRN 1 drop at 11/28/2425 [ - Suspended Admission] calcium carbonate (TUMS) chewable tablet 1,000 mg 400 mg of elemental calcium oral TID PRN 1,000 mg at 11/22/24 0559 docusate sodium (COLACE) capsule 100 mg 100 mg oral BID PRN 100 mg at 11/28/2428 [ - Suspended Admission] hydrOXYzine (ATARAX) tablet 25 mg 25 mg oral QID PRN 25 mg at 11/24/242013 [ - Suspended Admission] lidocaine (GLYDO) 2 % jelly 100 mg 5 mL urethral QID PRN [ - Suspended Admission] methocarbamoL (ROBAXIN) tablet 500 mg 500 mg oral TID PRN 500 mg at 11/21/24 142 ondansetron (ZOFRAN) injection 4 mg 4 mg intravenous Q4H PRN [ - Suspended Admission] ondansetron (ZOFRAN) tablet 4 mg 4 mg oral TID PRN 4 mg at 11/25/241940 [ - Suspended Admission] phenoL (CHLORASEPTIC) 1.4 % oral spray 1 spray 1 spray mouth/throat Q3H PRN [ - Suspended Admission] ramelteon (ROZEREM) tablet 8 mg 8 mg oral Nightly PRN 8 mg at 11/22/242099 ramelteon (ROZEREM) tablet 8 mg 8 mg oral Nightly PRN 8 mg at 11/29/242115 [ - Suspended Admission] simethicone (MYLICON) chewable tablet 80 mg 80 mg oral TID PRN sodium chloride 0.9% flush 10 mL 10 mL intravenous PRN 10 mL at 11/29/24 1308 [ - Suspended Admission] traMADoL (ULTRAM) tablet 25 mg 25 mg oral Q8H PRN Allergies Allergen Reactions Meperidine Vomiting, Other (See comments) and Nausea & Vomiting Review of Systems: All systems were reviewed. Pertinent positives are mentioned above. Exam General appearance: alert, cooperative, no distress Neck: No JVD. No carotid Bruit Chest: Adequate air entry bilaterally,No added sounds Cardiovascular: regular rate, rhythm, normal S1 and S2, without rub, gallops PSM 2/6 Abdomen: soft without mass, non-tender, with normal bowel sounds Extremities: no clubbing, cyanosis or edema. Peripheral pulse palpable Assessment /Plan Chest tightness -EKG with no acute changes -hx of CAD as noted below Stress test done yesterday was within normal limits no additional cardiac testing is indicated CAD s/p CABG -last cath 06/2024 -s/p PCI 06/2024 with complex stenosis in the RCA -patient with chest tightness on admit, stress test this afternoon for stratification HTN -episodes of elevated BP -monitor and adjust meds as needed History of Afib -On apixaban 5 mg twice daily Dyslipidemia -On atorvastatin and Zetia LDL cholesterol is acceptable Hx of CVA -continue statin/Plavix Sage Tillman MD * Rickie Chew MD - 11/29/2024 12:42 PM CDT Infectious Disease Ayad Shipman Admit Date: 11/27/2024 LOS: 2 Days Consulting Physician: Leanne Dockery MD Reason for consult: Leukocytosis Interval Course Had a stress test earlier today Blood cultures remain negative New Symptoms Afebrile, sitting in bed, poor appetite, not sure about the bowel movement, improved WBCs ATBX Cefepime Data Vitals: 11/28/24201311/28/24 2217 11/28/24 2358 11/29/24 0748 BP: 130/75 138/64 170/69 BP Location: Left arm Left arm Left arm Patient Position: Lying Lying Lying Pulse: 60 92 90 57 Resp: 19 19 16 Temp: 36.6 ??C (97.9 ??F) 36.4 ??C (97.5 ??F) 36.9 ??C (98.4 ??F) TempSrc: Oral Oral Oral SpO2: 96% 97% 96% Weight: Height: Temp (24hrs), Av.7 ??C (98 ??F), Min:36.4 ??C (97.5 ??F), Max:36.9 ??C (98.4 ??F) Recent Labs Lab Units 11/29/24 0613 11/28/24 0937 11/27/24 0457 WBC K/cumm 12.20* 20.83* 33.51* HEMOGLOBIN g/dL 10.5* 10.6* 11.3* HEMATOCRIT % 32.6* 32.7* 33.8* PLATELETS K/cumm 321 298 337 Recent Labs Lab Units 11/29/24 0613 11/28/24 0937 11/25/24 1454 BUN SERUM mg/dL 14 16 12 CREATININE mg/dL 0.71* 0.74* 0.91 Scheduled Meds:apixaban, 5 mg, oral, BID atorvastatin, 80 mg, oral, QAM cefepime, 2,000 mg, intravenous, Q8H JARETH cetirizine, 10 mg, oral, QAM clopidogreL, 75 mg, oral, Daily ezetimibe, 10 mg, oral, Daily famotidine, 20 mg, oral, BID ferrous sulfate, 65 mg of elemental iron, oral, BID with meals (bkfst, dinner) fluticasone propionate, 1 spray, each nostril, QAM folic acid, 1 mg, oral, Daily lisinopriL, 10 mg, oral, Daily magnesium oxide, 400 mg, oral, BID metoprolol tartrate, 25 mg, oral, BID regadenoson, 0.4 mg, intravenous, Once tamsulosin, 0.4 mg, oral, Daily with dinner thiamine, 100 mg, oral, Daily Continuous Infusions: PRN Meds:. acetaminophen lubricant docusate sodium ondansetron ramelteon sodium chloride 0.9% Review of Systems: Gen: denies fevers, denies chills, denies sweats, denies unintentional weight loss HEENT: Denies sore throat, denies thrush Neck: Denies palpable lymph nodes, denies neck stiffness Cv: denies chest pain, denies palpitations Resp: Denies SOB, Denies orthopnea Gi: Denies abdominal pain, Denies diarrhea, denies n/v Extrem: Denies gross deformities, denies joint pain, denies myalgias Skin: Denies rashes, denies lesions Neuro: Denies weakness, denies paresthesias, denies memory loss Psych: denies depression, denies anxiety Objective: Vitals: 24hr Min/Max: Temp Min: 36.7 ??C (98.1 ??F) Max: 38.2 ??C (100.8 ??F) Pulse Min: 72 Max: 113 BP Min: 129/71 Max: 173/63 Resp Min: 18 Max: 21 SpO2 Min: 95 % Max: 96 % Physical Exam: General appearance: alert, cooperative, no distress HEENT: (-)icterus, Oropharnyx is normal, NCAT Neck: No palpable LN Lungs: breath sounds normal and symmetric; minimal respiratory effort, no r/w/c Heart: regular rhythm, normal S1 and S2, no m/r/g Abdomen: soft without mass, non-tender, +bowel sounds, no HSM Skin: (-)new rashes, no ulcerations MSK: no gross deformities, FROM Extremities : no Edema, pulses present bilaterally Neuro: No focal deficits Psych: Appropriate mood and affect Lab/Radiology/Diagnostic Review: 11/26 CT chest abdomen pelvis without IMPRESSION: 1. Possible underlying cystitis. 2. Recommend follow up of the Incidental cecal thickening Additional Imaging In 1 Month with referral to gastroenterology and possible endoscopy. 3. High attenuation of the renal. Metastases that may represent medullary nephrocalcinosis or underlying dehydration state.. 11/27 blood cultures currently 11/25 UA negative 11/15 blood culture no growth 11/15 urine culture greater than 1000 colonies of Klebsiella Assessment: Low-grade fever, leukocytosis, unclear source Recent history of UTI treated repeat UA negative Recent history of stroke History of CAD status post CABG Anemia History of CVA with right-sided hemiparesis Plan: DC cefepime in next 24 hours if cultures remain negative Trial of laxatives if ongoing constipation Monitor temp and CBC,improve Respiratory PCR neg Supportive care * Son Card MD - 11/29/2024 10:45 AM CDT General Medicine Daily Progress SUBJECTIVE: Chief complaint of Fever and chills. Interval History: Chart reviewed and Pt examined Admit HPI Patient is a 74 y.o. male with past medical history of CVA on 10/23, CAD s/p CABG, atrial fibrillation, urinary retention, hyperlipidemia, diplopia and hypertension who presented as a direct admit from [facility] after being noted with fevers overnight, elevated WBCs up to 33, incontinence of urine and fatigue. Of note, patient was recently admitted here at [facility] on 11/15 and transferred to rehab on 11/18 after being treated for possible UTI with cefdinir until 11/24. Currently patient reports ongoing fatigue and generalized weakness. He denies any other associated symptoms. Denies chest pain, SOB, abdominal pain, constipation, diarrhea, dysuria, chills or fever. Initial workup showed urinalysis being negative after recently being treated with cefdnir. CT chestabdomen pelvis possible underlying cystitis, incidental cecal thickening. High attenuation of the renal. Metastasis that may represent medullary nephrocalcinosis or underlying dehydration state. Due to above, patient will be admitted for further evaluation, care and management 11/29/24 Vital signs reviewed CBC,BMP,Calcium ordered and reviewed Discussed with director social and case management Review of Systems Constitutional: Positive for activity change and fatigue. HENT: Negative. Eyes: Negative. Respiratory: Negative. Cardiovascular: Negative. Gastrointestinal: Negative. Endocrine: Negative. Genitourinary: Negative. Musculoskeletal: Negative. Allergic/Immunologic: Negative. Neurological: Negative. Hematological: Negative. Psychiatric/Behavioral: Negative. OBJECTIVE: Vitals: 24hr Min/Max: Temp Min: 36.4 ??C (97.5 ??F) Max: 36.9 ??C (98.4 ??F) Pulse Min: 57 Max: 92 BP Min: 121/57 Max: 170/69 Resp Min: 14 Max: 19 SpO2 Min: 96 % Max: 97 % Most Recent : Vitals: 11/28/24201311/28/24 2217 11/28/24 2358 11/29/24 0748 BP: 130/75 138/64 170/69 BP Location: Left arm Left arm Left arm Patient Position: Lying Lying Lying Pulse: 60 92 90 57 Resp: 19 19 16 Temp: 36.6 ??C (97.9 ??F) 36.4 ??C (97.5 ??F) 36.9 ??C (98.4 ??F) TempSrc: Oral Oral Oral SpO2: 96% 97% 96% Weight: Height: I/O last 2 completed shifts: In: 600 [P.O.:600] Out: 1550 [Urine:1550] I/O this shift: In: 120 [P.O.:120] Out: 200 [Urine:200] Physical Exam: Physical Exam Vitals and nursing note reviewed. Constitutional: Appearance: Normal appearance. HENT: Head: Normocephalic. Nose: Nose normal. Mouth/Throat: Mouth: Mucous membranes are moist. Eyes: General: No scleral icterus. Right eye: No discharge. Left eye: No discharge. Extraocular Movements: Extraocular movements intact. Conjunctiva/sclera: Conjunctivae normal. Pupils: Pupils are equal, round, and reactive to light. Cardiovascular: Rate and Rhythm: Normal rate and regular rhythm. Pulses: Normal pulses. Pulmonary: Effort: Pulmonary effort is normal. Breath sounds: Normal breath sounds. No wheezing. Abdominal: General: Abdomen is flat. Bowel sounds are normal. There is no distension. Musculoskeletal: General: Normal range of motion. Cervical back: Normal range of motion and neck supple. Right lower leg: No edema. Left lower leg: No edema. Skin: General: Skin is warm. Neurological: General: No focal deficit present. Mental Status: He is alert and oriented to person, place, and time. Psychiatric: Mood and Affect: Mood normal. Behavior: Behavior normal. Lab/Radiology/Diagnostic Review: Recent Results (from the past 24 hours) Troponin T high-sensitivity series (baseline, 2hr, 4hr, 6hr) Collection Time: 11/29/24 6:13 AM Result Value Ref Range Trop T hs 25 (H) <=22 ng/L CBC without differential Collection Time: 11/29/24 6:13 AM Result Value Ref Range WBC 12.20 (H) 3.80 - 9.90 K/cumm Hgb 10.5 (L) 13.0 - 17.5 g/dL Hct 32.6 (L) 38.9 - 50.3 % Plt 321 150 - 400 K/cumm MPV 9.5 9.1 - 12.3 fL RBC 3.65 (L) 4.30 - 5.80 M/cumm MCV 89.3 81.3 - 96.4 fL MCH 28.8 27.1 - 33.3 pg MCHC 32.2 (L) 32.3 - 35.7 g/dL RDW CV 14.1 11.1 - 14.9 % RDW SD 46.3 35.7 - 48.1 fL NRBC abs 0.00 0.00 - 0.01 K/cumm Basic metabolic panel Collection Time: 11/29/24 6:13 AM Result Value Ref Range Sodium 131 (L) 135 - 145 mmol/L Potassium, pl 4.1 3.3 - 4.9 mmol/L Chloride 101 97 - 110 mmol/L CO2 20 (L) 22 - 32 mmol/L Anion gap 10 2 - 15 mmol/L BUN 14 6 - 25 mg/dL Creatinine 0.71 (L) 0.80 - 1.30 mg/dL Glucose 112 70 - 199 mg/dL Calcium 9.0 8.5 - 10.3 mg/dL eGFR Collection Time: 11/29/24 6:13 AM Result Value Ref Range eGFR >90 >=60 mL/min/1.73 m2 Troponin T high-sensitivity 2-hour Collection Time: 11/29/24 9:02 AM Result Value Ref Range Trop T hs 24 (H) <=22 ng/L Trop T hs delta -1 ng/L Trop T hs interp Insignificant ECG 12 lead Result Date: 11/28/2024 Narrative: Vent Rate: 51 bpm RR Interval: 1162 msec IA Interval: 258 msec QRS Duration: 118 msec QTInterval: 442 msec QTC Interval: 419 msec P-R-T [place]: -76 - 2 - 21 degrees IMPRESSION: SINUS BRADYCARDIA WITH FIRST DEGREE AV BLOCK WITH OCCASIONAL SUPRAVENTRICULAR PREMATURE COMPLEXES SEPTAL MYOCARDIAL INFARCTION , OF INDETERMINATE AGE [40+ ms Q WAVE IN V1/V2] ABNORMAL ECG NO CHANGE FROM PREVIOUS TRACING NOTED Electronically Signed By: Murphy Gaitan MD XR Chest 1 View Result Date: 11/28/2024 Narrative: EXAMINATION: XR CHEST 1 VIEW DATE: 11/28/2024 10:00 AM HISTORY: Shortness of breath heartdisease FINDINGS:Compared with the study of 11/25/2024, postsurgical changes in the heart and mediastinum with cardiomegaly. No failure fluid infiltrates or pneumothorax. Right shoulder arthroplasty Impression: Cardiomegaly. No active disease. Electronically signed by: Yordan Dai M.D. CT Chest Abdomen Pelvis WO Contrast Result Date: 11/27/2024 Narrative: EXAMINATION: CT CHEST ABDOMEN PELVIS WO CONTRAST TECHNIQUE: Computed tomographic examination the chest, abdomen and pelvis was performed with intravenous contrast using standard protocol. HISTORY: Increased white count COMPARISON:I do not have a prior study available for comparison FINDINGS: CHEST: There is reticulation at the lung bases that may represent interstitial lung abnormalities. There is no honeycombing or traction bronchiectasis. There are no pulmonary nodules or masses that would suggest primary or metastatic disease. No pleural effusion pneumothorax or focal consolidation present. There is no supraclavicular mediastinal or hilar lymphadenopathy measuring greater than10 mm. Changes compatible with prior coronary artery bypass grafting noted. There is three-vessel coronary artery calcification. There is no pericardial thickening or effusion. Abdomen pelvis: Liver pancreas and gallbladder are normal. There is bilateral renal cysts. Nonobstructing renal calculi noted bilaterally. In addition, there is high attenuation of the renal Minutes. This may represent a dehydration state or conceivably medullary nephrocalcinosis. There is diffuse atherosclerotic diseaseof the aorta and branch vessels. There is diverticulosis no acute diverticulitis. There is a thick-walled bladder with inflammatory stranding suggesting possible cystitis. Enlarged prostate gland noted. Limited evaluation of the cecum demonstrates asymmetric thickening. While this is nonspecific and could represent mucosal collapse in there is clinical concern for any underlying malignancy I would recommend further evaluation with endoscopy. Osseous windows demonstrate no lytic or blastic lesions. Multilevel degenerative disc disease noted. Impression: 1. Possible underlying cystitis. 2. Recommend follow up of the Incidental cecal thickening Additional Imaging In 1 Month with referral to gastroenterology and possible endoscopy. 3. High attenuation of the renal. Metastases that may represent medullary nephrocalcinosis or underlying dehy dration state.. Electronically signed by: Migue Flak M.D., MPH XR Chest 1 View Result Date: 11/26/2024 Narrative: EXAMINATION: XR CHEST 1 VIEW Impression: Comparison with 2024. The lung volumes are small resulting in pulmonary vascular crowding. There is no focal pneumonic consolidation pneumothorax or pleural effusion. There is a tortuous atherosclerotic aorta. There is mild cardiomegaly. Sternal wires are midline and nondisplaced. Electronically signed by: Migue Falk M.D., MPH EEG Result Date: 11/16/2024 Narrative: This EEG was performed for evaluation of an episode of unresponsiveness. This EEG was recorded during wakefulness and drowsiness using a 16 channel EEG machine utilizing the international 10 20 system of electrode placement with bipolar and monopolar montages. The EEG was characterized by a moderate amount of muscle tension and movement artifact. The patient's waking background electrical activity consists of low voltage 8-9 hertz alpha waves best seen in the posterior head regions. During periods of drowsiness 6-7 hertz theta waves of medium voltage predominate. No focal slowing paroxysmal or epileptiform activity is seen. Impression: Normal EEG during wakefulness and drowsiness. Clinical correlation is recommended. MRI Brain WO Contrast Result Date: 11/16/2024 Narrative: EXAMINATION: MRI BRAIN WO CONTRAST HISTORY: 74-year-old man strokelike symptoms history of heart disease hypertension vascular disease TECHNIQUE: Multiplanar multisequence spin-echo imagesobtained FINDINGS: Correlation is made with an MRI dated 10/25/2024, noncontrast CT of 11/15/2024 and a CTA of 11/15/2024. Stable involutional changes with large ventricles and sulci beyond expectations of the patient's age. Diffusion images abnormal with multiple punctate areas of restricted diffusion, in the centrum semi-Milligan bilaterally of the frontal and parietal regions, right occipital cortex, subfrontal right deep white matter, left occipital region. Sparing of the posterior fossa. Areas of restricted diffusion are more pronounced than on the previous study. On the FLAIR images, areas of T2 hyperintensity in the subcortical and periventricular deep white matter, larissa, bilateral occipital regions, more pronounced than previous. Periventricular and subcortical T2 hyperintensities are again seen. Area of T2 hyperintensity in the basal ganglia on the left side involving the lentiform nucleus stable. T2-weighted images demonstrate flow voids within the left vertebral artery with asmall caliber right vertebral artery incompletely seen. Basilar artery patent. Intracranial internal carotid arteries, anterior middle cerebral arteries patent. Deep venous sinuses appear to be patent. Bilateral cataract surgery. Paranasal sinuses and mastoid air cells normally pneumatized. Susceptibility images demonstrate a punctate hemosiderin stain in the medulla dorsally, the right occipitalregion, small area in the left occipital region, left frontal region, right parietal lobe, left frontal lobe. Impression: Multiple acute infarcts bilaterally with restricted diffusion. Multi vascular distribution raise the possibility of either embolic phenomenon versus watershed infarcts. Significant atrophy and small vessel disease. Old hemorrhagic changes. Electronically signed by: Yordan Dai M.D. CTA/CTP Rapid Stroke (C) Result Date: 11/15/2024 Narrative: EXAMINATION: Computed tomography angiography (CTA) of the head with contrast; Computed tomography angiography (CTA) of the neck with contrast. CT perfusion imaging of the head with contrast HISTORY: Suspected hyperacute stroke. 74-year-old man unresponsive history of hypertension TECHNIQUE: . Computed tomographic angiography was obtained from the level of the aortic arch to the vertex following the uneventful administration of intravenous contrast according to hyperacute stroke protocol. 3D images were generated on a dedicated workstation. CT perfusion of the brain was performed with intravenous contrast using a separate data acquisition. The data was transmitted to a separate eflow kstation for processing by RAPID software ([employer]) to produce automated calculations of the estimated cerebral blood flow and Tmax. Contrast information: 120 mL Optiray-350 COMPARISON: 10/25/2024 and a CAT scan without contrast earlier today. FINDINGS: HEAD CT FINDINGS: Source images demonstrate stable involutional changes with mild prominence of the ventricles and sulci. Normal vascular enhancement is seen within the deep venous sinuses and [place]. No definitive oligemic areas are seen. No abnormal intracranial enhancement is seen. Great vessels the neck are patent with dominance of the left vertebral artery. Calcification is seen at the carotid bifurcations and cavernous carotid arteries. Aortic arch calcifications are seen without aneurysmal dilatation or dissection. Coronary artery calcifications are noted. Lung apices demonstrate no abnormalities. 2-D and 3-D images:ANGIOGRAPHIC FINDINGS: The visualized aortic arch appears normal with normal configuration of the great vessels. There is no significant stenosis of the origins of the great vessels. There is no geographic area of vascular paucity in the brain. Left anterior circulation: L CCA: no occlusion or significant stenosis. Extensive calcification at the bifurcation extending into the proximal internal carotid artery with no hemodynamically significant stenosis. L carotid bifurcation: no occlusion or significant stenosis L ICA proximal: no occlusion or significant stenosis L ICA distal: no occlusion or significant stenosis L ICA terminus: Atherosclerotic calcifications without high-grade stenosis. LM1: no occlusion or significant stenosis L M2 branches: Dense calcifications with irregularity with mild nonhemodynamically significant stenosis of the trifurcation L A2: no occlusion or significant stenosis. Hypoplastic A1 segment with patent anterior communicating artery. Right anterior circulation: R CCA: Atherosclerotic calcifications without high-grade stenosis. R carotid bifurcation: Atheros clerosis without hemodynamically significant stenosis R ICA proximal: Tortuosity without stenosis LUIS distal: no occlusion or significant stenosis R ICA terminus: Atherosclerotic calcifications without high-grade stenosis R M1: no occlusion or significant stenosis R M2 branches: no occlusion or significant stenosis R A2: no occlusion or significant stenosis. Anterior communicating artery patentPosterior circulation: L Vertebral Artery: no occlusion or significant stenosis. Dominant left vertebral artery. R Vertebral Artery: There is irregularity with multiple areas of moderate stenosis intracranially Basilar Artery: no occlusion or significant stenosis L CODING CLERK: no occlusion or significant stenosis hypoplastic P1 segment with patent posterior communicating artery R CODING CLERK: Hypoplastic P1 segment patent posterior communicating artery No cerebral aneurysm is seen. There is no evidence for anarteriovenous malformation. There is no suspicious cervical lymphadenopathy. There is no significant cervical spondylosis. Limited views of the lung apices are normal. CT Perfusion: Estimated ischemic core volume (rCBF < 0.3): 7 mL Estimated hypoperfusion volume (Tmax > 6 sec): 7 mL Hypoperfusion index 0.5. Mismatch volume 0. Mismatch ratio 1.0. Impression: No CT evidence of stroke. No significant carotid artery stenosis. Diffuse arteriosclerosis. 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 Electronically signed by: Yordan Dai M.D. CT Stroke Head WO Contrast Result Date: 11/15/2024 Narrative: EXAMINATION: CT STROKE HEAD WO CONTRAST dated 11/15/2024 7:20 AM. HISTORY: Code stroke 74-year-old man history of hypertension vascular disease heart disease. FINDINGS: Comparison is made with an MRI dated 10/25/2024. Additionally patient has a CAT scan from 10/25/2024. Lien Searcher radiograph de monstrates no acute findings. Transaxial images demonstrate stable involutional changes with large ventricles and sulci beyond expectations of the patient's age. Extensive periventricular lucencies reflect chronic microvascular disease. Since the previous CAT scan interval development of area of low CT attenuation in the right parieto-occipital lobe. Small area seen on the left parieto- occipital lobe. No hemorrhagic findings. No midline shift. Arteriosclerosis. Craniovertebral junction normal. Normal pituitary fossa. Mucosal thickening in the floor the maxillary sinuses. No bony abnormalities Impression: ATROPHY SMALL VESSEL DISEASE ATHEROSCLEROSIS. DEVELOPMENT OF OCCIPITAL INFARCTS GREATERON THE RIGHT THAN THE LEFT WHICH WAS SEEN ON THE PREVIOUS MRI. NO HEMORRHAGIC CHANGES Electronically signed by: Yordan Dai M.D. XR Chest 1 View Result Date: 2024 Narrative: EXAMINATION: XR CHEST 1 VIEW HISTORY: The patient is a 74-year-old male who presents with shortness of breath. Comparison made with the previous study dated 10/25/2024. TECHNIQUE: AP portable view of the chest. FINDINGS: Lungs clear. Cardiovascular structures unremarkable. Impression: No active disease. Electronically signed by: Solis Stahl M.D. XR Knee Left 1 or 2 Views Result Date: 11/11/2024 Narrative: EXAMINATION: XR KNEE LEFT 1 OR 2 VIEWS HISTORY: Pain FINDINGS: Severe degenerative changes involving the medial joint space. No fracture or dislocation. No effusion. Vascular calcifications Impression: Significant degenerative changes Electronically signed by: Farr Dai, M.D. ECG 12 lead Result Date: 11/08/2024 Narrative: Vent Rate: 60 bpm RR Interval: 989 msec IA Interval: 269 msec QRS Duration: 107 msec QT Interval: 418 msec QTC Interval: 419 msec P-R-T [place]: 69 - -9 - -3 degrees IMPRESSION: SINUS RHYTHM WITH FIRST DEGREE AV BLOCK WITH OCCASIONAL VENTRICULAR PREMATURE COMPLEXES ABNORMAL ECG Electronically Signed By: Gerard Bauer MD XR Kub Result Date: 10/31/2024 Narrative: EXAMINATION: XR KUB HISTORY: The patient is a 73-year-old male who presents with constipation. TECHNIQUE: Supine view of the abdomen. FINDINGS: Moderate fecal impaction seen in the left colon. No dilated small or large bowel loops. Impression: Fecal impaction. Electronically signed by: Solis Stahl M.D. apixaban, 5 mg, BID atorvastatin, 80 mg, QAM cefepime, 2,000 mg, Q8H JARETH cetirizine, 10 mg, QAM clopidogreL, 75 mg, Daily ezetimibe, 10 mg, Daily famotidine, 20 mg, BID ferrous sulfate, 65 mg of elemental iron, BID with meals (bkfst, dinner) fluticasone propionate, 1 spray, QAM folic acid, 1 mg, Daily lisinopriL, 10 mg, Daily magnesium oxide, 400 mg, BID metoprolol tartrate, 25 mg, BID tamsulosin, 0.4 mg, Daily with dinner thiamine, 100 mg, Daily ASSESSMENT/PLAN: Principal Problem: Fever and chills Fever weakness with possible underlying infection of unclear etiology. On cefepime and vancomycin for now. BC pending , resp panel negative , urine with no UTI. CXR with no clear infiltrates. Chest pain will send EKD, troponin series and have cardiology to see. CAD with CABG and stents on ASA , high intensity statin and metoprolol xl. History of CVA on statin and ASA. Chronic atrial fibrillation on apixaban , metoprolol . Urinary retention on tamsulosin has a urinary catheter now , will need urology as outpatient if fails voiding trial. HTN on lisinopril, metoprolol. Normocytic anemia mild with no active bleeding Mild hyponatremia will trend levels for now. [] I confirmed that the patient's Advance Care Plan is present, code status is documented, or surrogate decision maker is listed in the patient's medical record. Son Card MD * Thursday, INA Berg - 11/29/2024 9:39 AM CDT Occupational Therapy NOTE / SESSION TYPE: DAILY PROGRESS / TREATMENT Patient's Name: Ayad Shipman Age / Sex: 74 y.o. / male Room: [place] [address] : 1950 Date of service: 11/29/24 TIME IN: 939 TIME OUT: 1010 Patient Active Problem List Diagnosis Chronic rhinitis Coronary atherosclerosis Essential hypertension Hyperlipidemia Nocturia Wax in ear Diplopia Dizziness and giddiness Rotator cuff arthropathy of right shoulder Anemia Glenohumeral arthritis, right Paresthesia History of stroke Intracranial vascular stenosis Acute CVA (cerebrovascular accident) (HCC) Altered mental status CVA (cerebrovascular accident due to intracerebral hemorrhage) (HCC) Episode of unresponsiveness Sepsis ([facility]) Fever and chills Past Medical History: Diagnosis Date Dizziness Hyperlipidemia Hypertension Loss of balance Nocturia Visual disturbance Past Surgical History: Procedure Laterality Date ANKLE SURGERY CORONARY ARTERY BYPASS GRAFT 2005 x4 on Plavix HEART SURGERY LASIK ORAL SURGERY Precautions (including weight-bearing): Fall risk and Bed / chair alarm Subjective: Pt said I sleep a lot better but I am too restless Therapy Pain: Pre-therapy pain level: 0 /10 Pain location: No pain - Location N/A Pain Intervention(s): Pain medication administered prior to session Post-therapy pain level: 0 /10 Pain scale reference: 0-10 SCALE Objective: Appearance: Presentation upon OT arrival: Patient Supine with head of bed elevated Presentation upon OT departure: Patient Supine with head of bed elevated Bed / Chair alarm in place and activated upon OT departure: Yes Call light within arms reach of patient at end of session: Yes Completed patient handoff and notified PATENT CLERK / RN, name: Braxton, , of patient's location and functionalstatus upon completion of session VITAL SIGNS: Heart rate at rest: 53 BPM Heart rate with activity: 54 BPM O2 saturations at rest: 96 % O2 saturations with activity: 98 % Oxygen LPM: room air Cognitive / Perceptual: A & O x 4 Mobility / Transfers: Bed Mobility: supine to sit at EOB requring mod assist for trunk and LEs management with time increased and min vc's tactile cues for proper auto body repairer. Sit to supine max assist. Scooting to the HOB requring dependant assist x two person. Transfer(s): not due to pt is going down for stress test. Living Skills / Other Activities: Grooming: Patient completed grooming of wash face, brushing teeth, and washing hands while Sitting on EOB with overall Maximal assistance. Patient required assistance for physical assistance for balance, verbal cue(s), sequencing, opening packages, set-up of items, increased time to complete, and safety Pt seated at EOB for 6 minutes while unilateral UE supported on bed for requring max physical assist for postural control due to leaning posteriorly and to right side. UE THERAPEUTIC EXERCISES: EXERCISE TYPE: BUE strengthen exercise with use of green thera band/ AROM EXERCISE(S) COMPLETED WITH NUMBER OF REPETITIONS: SHOULDER FLEXION 5 , SHOULDER EXTENSION 5 , SHOULDER ABDUCTION 5, SHOULDER ADDUCTION 5, ELBOW FLEXION 10, ELBOW EXTENSION 10 , WRIST FLEXION 10, WRIST EXTENSION 10, FOREARM SUPINATION 10, and FOREARM PRONATION 10 NUMBER OF SETS: 1 ASSIST LEVEL: min vc's verbal cues and visual demo LOCATION OF COMPLETION: supine in bed TOLERANCE: tolerated well without complaints of pain and Rest breaks in between sets Caregiver Present: No Education & Training Provided: Role of OT, OT plan of care, ADL training, Bed mobility training, Functional transfer training, Balance training, Safety education, UE home exercise program, [place] breathing / Relaxation techniques, and Energy conservation education Assessment: Activity tolerance / response to OT session: decreased endurance, balance, weakness , GOOD PARTICIPATION, GOOD MOTIVATION, and RECEPTIVE TO EDUCATION / TRAINING Progress towards goals: Please refer to care plan from this date for progress towards individual goals Plan: Therapy Plan: Rehab Potential (Prognosis): good OT Recommendations This Date: OT RECOMMENDATIONS: OT Recommendation: Inpatient Rehab Facility Flow sheet updated and OT Consultation in Regards to Change in Discharge Recommendations: YES /NO: No Additional recommendation comments: Recommend Inpatient Rehab/Acute Rehab due to: Ability to actively participate in intensive therapy 3 hours/day, 5 days/week or 900 minutes per week, Highly motivated to participate in therapy, Not at baseline due to impaired ability to complete ADLs, Impaired ability to complete functional mobility, Likely to return to the community at discharge with support system in place, Requires greater than 25% physical assistance with most mobility tasks, Requires greater than 25% physical assistance with most ADL tasks, Requires multiple therapy disciplines to address functional deficits Frequency of therapy:OT Frequency during current admission: 3-5x/wk If this is the last note, consider this the discharge summary Otis ThursdayINA 11/29/24 Cosigned by Evelyn Walker, OT at 11/30/2024 7:39 AM CDT * Chava Muhammad, MUNA - 11/29/2024 8:58 AM CDT Physical Therapy PT PROGRESS NOTE PATIENT'S NAME:Ayad Shipman :1950 AGE:74 y.o. ROOM:[place] [address] Past Medical History: Diagnosis Date Dizziness Hyperlipidemia Hypertension Loss of balance Nocturia Visual disturbance Past Surgical History: Procedure Laterality Date ANKLE SURGERY CORONARY ARTERY BYPASS GRAFT 2005 x4 on Plavix HEART SURGERY LASIK ORAL SURGERY Patient Active Problem List Diagnosis Chronic rhinitis Coronary atherosclerosis Essential hypertension Hyperlipidemia Nocturia Wax in ear Diplopia Dizziness and giddiness Rotator cuff arthropathy of right shoulder Anemia Glenohumeral arthritis, right Paresthesia History of stroke Intracranial vascular stenosis Acute CVA (cerebrovascular accident) ([facility]) Altered mental status CVA (cerebrovascular accident due to intracerebral hemorrhage) ([facility]) Episode of unresponsiveness Sepsis ([facility]) Fever and chills TIME IN: 858 TIME OUT: 929 SUBJECTIVE Oh I don't know if I can stand MENTAL STATUS/ORIENTATION: alert and oriented x4 PAIN: Pre-therapy pain level: 0/10 Pain location: n/a Pain intervention: not needed Post-therapy pain level/response to intervention: 0/10 OBJECTIVE PRECAUTIONS: fall and bed / chair alarm APPEARANCE/POSTURE: Pt supine w/ HOB elevated, on room air, in no distress, bed alarm activated, and pt pleasantly agreeable to therapy MOBILITY DOCUMENTATION: Bed Mobility: Mod assist of 1 for supine to sit using bed rail for support. Max assist of 1 for sitto supine w/ heavy posterior lean present Transfers: Mod assist of 1 for initial sit to stand from bed w/ unilateral UE supported on walker and other UE pushing up from bed rail- Increased time to complete and posterior lean present. Second sit to stand from bed- max assist of 1 and more significant posterior lean. Max assist of 1 for bothstand to sits w/ poor descent. Gait: Not Tested. See pre gait below TREATMENT: Static standing with w/w for approximately 3 minutes: Mod to max assist of 1 w/ posterior leaning present. Pt unable to correct lean despite verbal and tactile cues. Pt's base of support narrowing. Static sitting balance before transfer training: GOOD- using unilateral UE support on bed rail. Static sitting balance post transfer training: POOR w/ heavy posterior lean APPEARANCE/POSTURE (end of session): appearance otherwise unchanged from PT arrival in room HANDOFF: Verbal handoff given to Ray. ALARMS: Bed alarm in place / active EDUCATION:bed mobility , therapeutic activity, therapeutic exercises , functional transfer training, balance training / neuromuscular re-education, endurance training, safety , and positioning RESPONSE TO EDUCATION: needs reinforcement ASSESSMENT Activity tolerance/response to P.T.: Pt cooperated well in therapy and denied pain. Pt demonstratedheavy posterior lean during static sitting and standing activities. Barriers to learning: Physical Barriers to discharge: Limited insight into deficits, Unrealistic expectations, Decreased endurance, Upper extremity weakness, Lower extremity weakness, Impaired vision, and Medical complications Patient continues progressing toward previously set goals which remain appropriate at this time. PLAN PT Discharge Recommendations this date: PT Recommendation/Plan: Inpatient Rehab Facility Patient at high risk for: Falls, Readmission, Injury due to decreased ability to care for self, Injury due to reduced functional status, Injury due to balance deficits, Injury at home as patient has not returned to prior level of function Recommend Inpatient Rehab/Acute Rehab due to: Ability to actively participate in intensive therapy 3 hours/day, 5 days/week or 900 minutes per week, Highly motivated to participate in therapy, Not atbaseline due to impaired ability to complete ADLs, Impaired ability to complete functional mobility, Likely to return to the community at discharge with support system in place, Requires greater than25% physical assistance with most mobility tasks, Requires greater than 25% physical assistance with most ADL tasks, Requires multiple therapy disciplines to address functional deficits, Patient and caregiver require specialized skilled training due to new level of function/diagnosis, Requires skilled therapy interventions to address neurological deficits PT Frequency during current admission: Daily CARE PLAN Multi-Disciplinary Problems (from Physical Therapy) Active Problems Problem: PT Misc Start Date: 11/28/24 Goal Start Date Expected End Date End Date PT LTG - perform sup to sit with min A Progressing 11/28/24 12/05/24 -- Goal Start Date Expected End Date End Date PT LTG - perform sit to stand with min A Progressing 11/28/24 12/05/24 -- Goal Start Date Expected End Date End Date PT LTG - perform gait with wh walker 50 feet with min A Progressing 11/28/24 12/05/24 -- Goal Start Date Expected End Date End Date PT LTG -perform sitting balance with good balance dynamic x 5 min Progressing 11/28/24 12/05/24 -- If this is the last note, please consider this the discharge summary. Cosigned by Beatriz Kimball, PT at 11/29/2024 1:03 PM CDT * Vik Watkins NP - 11/29/2024 8:44 AM CDT Cardiology Daily Progress - [facility] SUBJECTIVE: Mr. Shipman is lying in bed comfortably. He denies having chest pain this morning. States that he does not feel like his breathing is at baseline but denies having shortness of breath. Review of Systems: Review of systems per HPI and otherwise all other systems are negative OBJECTIVE: Scheduled Medications Medication Dose Route Frequency [ - Suspended Admission] apixaban (ELIQUIS) tablet 5 mg 5 mg oral BID apixaban (ELIQUIS) tablet 5 mg 5 mg oral BID [ - Suspended Admission] artificial tears (fyebtfs-tkldgkikhtgl-xbfhtrer) (GENTEAL TEARS MODERATE) 0.1-0.3-0.2 % ophthalmic solution 1 drop 1 drop each eye TID [ - Suspended Admission] atorvastatin (LIPITOR) tablet 80 mg 80 mg oral QAM atorvastatin (LIPITOR) tablet 80 mg 80 mg oral QAM [ - Suspended Admission] baclofen (LIORESAL) tablet 5 mg 5 mg oral TID with meals [ - Suspended Admission] cefepime (MAXIPIME) 2,000 mg in sodium chloride 0.9% 100 mL IVPB 2,000 mg intravenous Q8H JARETH cefepime (MAXIPIME) 2,000 mg in sodium chloride 0.9% 100 mL IVPB 2,000 mg intravenous Q8H JARETH [ - Suspended Admission] cetirizine (ZyrTEC) tablet 10 mg 10 mg oral QAM cetirizine (ZyrTEC) tablet 10 mg 10 mg oral QAM clopidogreL (PLAVIX) tablet 75 mg 75 mg oral Daily [ - Suspended Admission] diclofenac sodium (VOLTAREN) 1 % gel 2 g 2 g topical TID [ - Suspended Admission] ezetimibe (ZETIA) tablet 10 mg 10 mg oral Daily ezetimibe (ZETIA) tablet 10 mg 10 mg oral Daily [ - Suspended Admission] famotidine (PEPCID) tablet 20 mg 20 mg oral BID famotidine (PEPCID) tablet 20 mg 20 mg oral BID [ - Suspended Admission] ferrous sulfate delayed release tablet 65 mg of elemental iron 65 mg of elemental iron oral Daily with breakfast ferrous sulfate delayed release tablet 65 mg of elemental iron 65 mg of elemental iron oral BID with meals (bkfst, dinner) [ - Suspended Admission] FLUoxetine (PROzac) capsule 40 mg 40 mg oral Daily [ - Suspended Admission] fluticasone propionate (FLONASE) 50 mcg/actuation nasal spray 1 spray 1 spray each nostril QAM fluticasone propionate (FLONASE) 50 mcg/actuation nasal spray 1 spray 1 spray each nostril QAM [ - Suspended Admission] folic acid (FOLVITE) tablet 1 mg 1 mg oral Daily folic acid (FOLVITE) tablet 1 mg 1 mg oral Daily [ - Suspended Admission] lidocaine (ASPERCREME) 4 % patch 3 patch 3 patch transdermal Q24H lisinopriL (PRINIVIL,ZESTRIL) tablet 10 mg 10 mg oral Daily [ - Suspended Admission] lisinopriL (PRINIVIL,ZESTRIL) tablet 20 mg 20 mg oral Daily [ - Suspended Admission] magnesium oxide (MAG-OX) tablet 400 mg 400 mg oral Daily magnesium oxide (MAG-OX) tablet 400 mg 400 mg oral BID metoprolol tartrate (LOPRESSOR) immediate release tablet 25 mg 25 mg oral BID [ - Suspended Admission] polyethylene glycol (MIRALAX) packet 17 g 17 g oral Daily [ - Suspended Admission] senna-docusate (PERICOLACE) 8.6-50 mg per tablet 1 tablet 1 tablet oral BID tamsulosin (FLOMAX) extended release capsule 0.4 mg 0.4 mg oral Daily with dinner [ - Suspended Admission] tamsulosin (FLOMAX) extended release capsule 0.8 mg 0.8 mg oral Daily withdinner [ - Suspended Admission] thiamine (VITAMIN B-1) tablet 100 mg 100 mg oral Daily thiamine (VITAMIN B-1) tablet 100 mg 100 mg oral Daily [ - Suspended Admission] traZODone (DESYREL) tablet 50 mg 50 mg oral Nightly [ - Suspended Admission] vancomycin 1,000 mg/200 mL in dextrose 5% (premix) 1,000 mg 15 mg/kg intravenous Daily Continuous Medications Medication Dose Last Rate PRN Medications Medication Dose Route Frequency Last Admin [ - Suspended Admission] acetaminophen (TYLENOL) tablet 650 mg 650 mg oral Q6H PRN 650 mg at 11/27/24 0553 acetaminophen (TYLENOL) tablet 650 mg 650 mg oral Q6H PRN 650 mg at 11/27/242035 [ - Suspended Admission] albuterol HFA (PROVENTIL HFA,VENTOLIN HFA,PROAIR HFA) 90 mcg/actuation inhaler 2 puff 2 puff inhalation Q4H PRN (RT) artificial tears (okyfqql-psmowvumsbzf-rgigsqeu) (GENTEAL TEARS MODERATE) 0.1-0.3-0.2 % ophthalmic solution 1 drop 1 drop each eye QID PRN 1 drop at 11/28/24924 [ - Suspended Admission] calcium carbonate (TUMS) chewable tablet 1,000 mg 400 mg of elemental calcium oral TID PRN 1,000 mg at 11/22/24 0559 docusate sodium (COLACE) capsule 100 mg 100 mg oral BID PRN 100 mg at 11/28/2428 [ - Suspended Admission] hydrOXYzine (ATARAX) tablet 25 mg 25 mg oral QID PRN 25 mg at 11/24/242013 [ - Suspended Admission] lidocaine (GLYDO) 2 % jelly 100 mg 5 mL urethral QID PRN [ - Suspended Admission] methocarbamoL (ROBAXIN) tablet 500 mg 500 mg oral TID PRN 500 mg at 11/21/24 1424 ondansetron (ZOFRAN) injection 4 mg 4 mg intravenous Q4H PRN [ - Suspended Admission] ondansetron (ZOFRAN) tablet 4 mg 4 mg oral TID PRN 4 mg at 11/25/24 1941 [ - Suspended Admission] phenoL (CHLORASEPTIC) 1.4 % oral spray 1 spray 1 spray mouth/throat Q3H PRN [ - Suspended Admission] ramelteon (ROZEREM) tablet 8 mg 8 mg oral Nightly PRN 8 mg at 11/22/24 2100 ramelteon (ROZEREM) tablet 8 mg 8 mg oral Nightly PRN 8 mg at 11/28/247 [ - Suspended Admission] simethicone (MYLICON) chewable tablet 80 mg 80 mg oral TID PRN [ - Suspended Admission] traMADoL (ULTRAM) tablet 25 mg 25 mg oral Q8H PRN Recent Labs Lab Units 11/29/24 0613 11/28/24 0937 11/26/24 1703 11/25/24 1454 SODIUM mmol/L 131* 131* -- 132* POTASSIUM PLASMA mmol/L 4.1 3.8 -- 3.5 CHLORIDE mmol/L 101 100 -- 100 CO2 mmol/L 20* 21* -- 21* ANIONGAP mmol/L 10 10 -- 11 GLUCOSE mg/dL 112 104 -- 107 POC GLUCOSE MONITOR mg/dL -- -- 114 -- BUN SERUM mg/dL 14 16 -- 12 CREATININE mg/dL 0.71* 0.74* -- 0.91 CALCIUM mg/dL 9.0 8.9 -- 9.5 ALBUMIN g/dL -- -- -- 3.7 ALK PHOS Units/L -- -- -- 114 ALT Units/L -- -- -- 24 AST Units/L -- -- -- 24 BILIRUBIN TOTAL mg/dL -- -- -- 0.4 Recent Labs Lab Units 11/29/24 0611/28/24 0937 11/27/24 0457 WBC K/cumm 12.20* 20.83* 33.51* HEMOGLOBIN g/dL 10.5* 10.6* 11.3* HEMATOCRIT % 32.6* 32.7* 33.8* PLATELETS K/cumm 321 298 337 Intake/Output Summary (Last 24 hours) at 11/29/2024 0844 Last data filed at 11/29/2024 0840 Gross per 24 hour Intake 720 ml Output 1750 ml Net -1030 ml Wt Readings from Last 3 Encounters: 11/27/24 71.6 kg (157 lb 12.2 oz) 11/26/24 71 kg (156 lb 8.4 oz) 11/17/24 81.6 kg (179 lb 14.3 oz) Patient Vitals for the past 24 hrs: BP Temp Temp src Pulse Resp SpO2 11/29/24 0748 170/69 36.9 ??C (98.4 ??F) Oral 57 16 96 % 11/28/24 2358 138/64 36.4 ??C (97.5 ??F) Oral 90 19 97 % 11/28/247 -- -- -- 92 -- -- 11/28/242013 130/75 36.6 ??C (97.9 ??F) Oral 60 19 96 % 11/28/24 1541 121/57 36.7 ??C (98.1 ??F) Oral 66 14 97 % Exam: General: In no apparent distress Neuro: Alert and oriented x 3, moves all extremities well HEENT: Normocephalic, atraumatic Lungs: Symmetric, unlabored, diminished to auscultation bilaterally Heart: S1,S2, regular rate & rhythm Abdomen: Soft, non-tender Extremities: No LE edema [facility] 06/15/2024 Conclusion 1. Severe three-vessel [place] coronary artery disease. Patent grafts to the LAD and circumflex artery. Occluded graft to the right coronary artery. Successful complex percutaneous intervention of the proximal mid and mid to distal right coronary artery as described above. Echo 06/16/2024 Summary * The left ventricle is normal in size. * Left ventricular systolic function is normal with an estimated ejection fraction of 60-65% by visual estimate. * Left ventricular segmental wall motion is normal. * The left ventricular mass is mildly increased with concentric hypertrophy. * The left ventricular diastolic function is consistent with grade II diastolic dysfunction and increased left atrial filling pressure. * The right ventricle is normal in size. * Right ventricular systolic function is normal. * The left atrium is normal in size. * The right atrium is normal in size. * There is mild to moderate mitral valve regurgitation. * There is mild tricuspid valve regurgitation. * The pulmonary artery systolic pressure is normal, 32 mmHg. ASSESSMENT/PLAN: Chest tightness -EKG with no acute changes -hx of CAD as noted below -stress test this afternoon for stratification CAD s/p CABG -last cath 06/2024 -s/p PCI 06/2024 with complex stenosis in the RCA -patient with chest tightness on admit, stress test this afternoon for stratification HTN -episodes of elevated BP -monitor and adjust meds as needed History of Afib -On apixaban 5 mg twice daily Dyslipidemia -On atorvastatin and Zetia Hx of CVA -continue statin/Plavix NPO for stress test later today Vik Watkins DNP, TRAINING PROJECT MANAGER-C [facility] 11/29/2024 8:44 AM * Beatriz Kimball, PT - 11/28/2024 2:21 PM CDT Physical Therapy INITIAL EVALUATION PATIENT'S NAME:Ayad Shipman :1950 AGE:74 y.o. ROOM:[place] [address] TIME IN:1422 TIME OUT:1510 CURRENT DIAGNOSIS AND HOSPITAL COURSE: Primary Diagnosis: Fever and chills HPI: Ayad Shipman is a 74 y.o. male who presents as direct admit from [facility] after being noted with fevers overnight, elevated WBCs up to 33, incontinence of urine, and fatigue. Notable History: CVA on 10/23, CVA 2023, CAD s/p CABG, atrial fibrillation, urinary retention, hyperlipidemia, diplopia and hypertension Patient Active Problem List Diagnosis Chronic rhinitis Coronary atherosclerosis Essential hypertension Hyperlipidemia Nocturia Wax in ear Diplopia Dizziness and giddiness Rotator cuff arthropathy of right shoulder Anemia Glenohumeral arthritis, right Paresthesia History of stroke Intracranial vascular stenosis Acute CVA (cerebrovascular accident) (HCC) Altered mental status CVA (cerebrovascular accident due to intracerebral hemorrhage) (HCC) Episode of unresponsiveness Sepsis (HCC) Fever and chills Past Medical History: Diagnosis Date Dizziness Hyperlipidemia Hypertension Loss of balance Nocturia Visual disturbance Past Surgical History: Procedure Laterality Date ANKLE SURGERY CORONARY ARTERY BYPASS GRAFT 2005 x4 on Plavix HEART SURGERY LASIK ORAL SURGERY SUBJECTIVE LIVES WITH: LIVING ENVIRONMENT: one level house with 3 steps to enter with rail PRIOR LEVEL OF FUNCTION: Independent with feeding, grooming, bathing, dressing, toileting, transfers, ambulating, housekeeping, laundry, meal preparation, shopping, 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, medication management EQUIPMENT OWNED: st cane, manual wc EQUIPMENT USED: none SOCIAL SUPPORTS: , 2 sons, 3 brothers, sister PATIENT/FAMILY GOAL: wants to back to rehab so he can get back to his house MENTAL STATUS/ORIENTATION: Alert and Oriented to person, situation, location, and time OBJECTIVE PRECAUTIONS: fall, bed/chair alarm, and visual deficits (blurred, double vision and visual field cut) APPEARANCE/POSTURE: sitting up in the chair , IV infusing, condom cath in place VITAL SIGNS: Resting heart rate: 68 Post-activity heart rate: Resting O2 sat: 96% on RA Post-activity O2 sat: PAIN: Pre-therapy pain level: none Pain location: Pain intervention: Post-therapy pain level/response to intervention: none LE ASSESSMENTS: Right LE ROM: WFL Left LE ROM: WFL Right LE strength: 3+/5 hip, 4/5 knee ext Left LE strength: 4/5 hip. 4+/5 knee and ankle MOBILITY: Bed mobility: rolling in bed mod A with use of rail Sit to sup with max A Of 2, heavy posterior lean Transfers: sit to stand from chair with mod A of 1 min A of 1 stood to stand with walker, chair to bed transfer with max A of 1 mod A of 1, able to take small side step Ambulation: Distance: 5 feet Assistive device: rolling walker Level of assist: mod A 1 of and min A of 1 with close chair follow persons Deviations: heavy posterior lean with difficulty moving R LE forward, and R knee buckling slightly Stairs: NT Balance/Special Tests: Static sitting balance: good- with constant cues to lean forward Dynamic sitting balance: fair- Static standing balance: poor Dynamic standing balance: poor AMPAC: Basic Mobility - 6 Click How much difficulty does the patient have: Turning over in bed: A lot How much difficulty does the patient currently have: Sitting down and standing up from a chair witharms?: A lot How much difficulty does the patient have: Moving from lying on back to sitting on the side of the bed?: A lot How much difficulty does the patient have: Moving to and from a bed to a chair including wheelchair?: Total How much help does the patient currently need: Walk in hospital room?: Total How much help from another person does the patient currently need: Climbing 3-5 steps with a railing?: Total Total 6 Click Score (range 6-24): 9 6 click interpretation: AM-PAC 6 Click scores > 18 = Likely home discharge AM-PAC 6 Click scores < 18 = Likely require inpatient rehab or fdc placement at discharge APPEARANCE/POSTURE (end of session): sup in bed off loaded to the right with wedges, potus boots inplace, call light in reach, in room, condom cath and IV intact HANDOFF: Verbal handoff given to Juan. ALARMS: Bed alarm in place / active EDUCATION: role of PT evaluation RESPONSE TO EDUCATION: needs reinforcement ASSESSMENT PROBLEM LIST: decreased LE strength , impaired coordination, impaired balance , decreased mobility , gait instability, decreased endurance, long standing deficits , impaired vision, and medical complications BARRIERS TO LEARNING: Physical BARRIERS TO DISCHARGE: Limited insight into deficits, Unrealistic expectations, Decreased endurance, Upper extremity weakness, Lower extremity weakness, Impaired vision, and Medical complications REHAB POTENTIAL/PROGNOSIS: good PLAN PT Discharge Recommendations this date: PT Recommendation/Plan: Inpatient Rehab Facility Patient at high risk for: Falls, Readmission, Injury due to decreased ability to care for self, Injury due to reduced functional status, Injury due to balance deficits, Injury at home as patient has not returned to prior level of function Recommend Inpatient Rehab/Acute Rehab due to: Ability to actively participate in intensive therapy 3 hours/day, 5 days/week or 900 minutes per week, Highly motivated to participate in therapy, Not atbaseline due to impaired ability to complete ADLs, Impaired ability to complete functional mobility, Likely to return to the community at discharge with support system in place, Requires greater than25% physical assistance with most mobility tasks, Requires greater than 25% physical assistance with most ADL tasks, Requires multiple therapy disciplines to address functional deficits, Patient and caregiver require specialized skilled training due to new level of function/diagnosis, Requires skilled therapy interventions to address neurological deficits Treatment Plan/Interventions: acute PT for gait , balance, mobility PT Frequency during current admission: Daily Equipment Recommendations: PT Equipment Recommended: Other (Comment) (to be determined) Multi-Disciplinary Problems (from Physical Therapy) Active Problems Problem: PT Misc Start Date: 11/28/24 Goal Start Date Expected End Date End Date PT LTG - perform sup to sit with min A 11/28/24 12/05/24 -- Goal Start Date Expected End Date End Date PT LTG - perform sit to stand with min A 11/28/24 12/05/24 -- Goal Start Date Expected End Date End Date PT LTG - perform gait with wh walker 50 feet with min A 11/28/24 12/05/24 -- Goal Start Date Expected End Date End Date PT LTG -perform sitting balance with good balance dynamic x 5 min 11/28/24 12/05/24 -- If this is the last note, please consider this the discharge summary. * Collette Howe, OT - 11/28/2024 11:44 AM CDT Occupational Therapy NOTE / SESSION TYPE: Initial Evaluation Patient Name: Ayad Shipman Date of : 1950 Age / Sex: 74 y.o. / male Room: [facility] [address] Admit Date: 11/27/2024 Date of Service: 11/28/24 Time In: 1144 Time Out: 1226 Primary Diagnosis: Fever and chills HPI: Ayad Shipman is a 74 y.o. male who presents as direct admit from [facility] after being noted with fevers overnight, elevated WBCs up to 33, incontinence of urine, and fatigue. Notable History: CVA on 10/23, CAD s/p CABG, atrial fibrillation, urinary retention, hyperlipidemia, diplopia and hypertension Past Medical History: Diagnosis Date Dizziness Hyperlipidemia Hypertension Loss of balance Nocturia Visual disturbance Past Surgical History: Procedure Laterality Date ANKLE SURGERY CORONARY ARTERY BYPASS GRAFT 2005 x4 on Plavix HEART SURGERY LASIK ORAL SURGERY Precautions (Including Weight-Bearing): Fall risk and Bed / chair alarm Caregiver Present for Session (Yes or No): Yes: SUBJECTIVE: Patient Comment: As long as you keep working with me Pain Assessment: Pre-therapy pain level: 0 / 10 Pain location: No pain - Location N/A Pain intervention(s): No pain - Intervention N/A Post-therapy pain level: 0 / 10 Pain scale used: 0-10 SCALE Prior Living Environment and Level of Function: Lives with: Receives assistance from / other social supports available: , 2 sons, and 3 brothers, and sister 24 hr assistance is available if needed Living environment (Type of residence / Entrance accessibility): 1-story house/ trailer [address] with hand rail Bathroom location and setup: Tub/shower combination Prior level of function: Independent with feeding, grooming, bathing, dressing, toileting, transfers, ambulating, housekeeping, laundry, meal preparation, shopping, 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, medication management Mobility device used prior to admission: none Equipment available: Shower chair, Straight cane, and Manual wheelchair Community access / Driving: Drives self Vocational / Occupation: retired Social roles / Hobbies: Gardening Patient / Family goal(s): To go back to [facility] Fall(s) within the last 6 months: No OBJECTIVE: Appearance: Presentation upon OT arrival: Patient Supine with head of bed elevated Presentation upon OT departure: Patient Sitting in bedside recliner Bed / chair alarm in place and activated upon OT departure: Yes Call light within arms reach of patient at end of session: Yes Completed patient handoff and notified PATENT CLERK / RN, name: David and PCTAleyda, of patient's locationand functional status upon completion of session Vital Signs: Heart rate with activity: 62 bpm SPO2 with activity: 97 % Oxygen LPM: 2L Cognitive / Perceptual Assessment: A&O x4, follows 1 step commands 100%, pleasant and cooperative throughout UE ROM / Strength / Coordination: (A)ROM - Right: wfl except shoulder flex/and to approx 90 degrees Strength - Right: 4/5 except shoulder flex/abd 3-/5 (A)ROM - Left: wfl except shoulder flex/and to approx 90 degrees Strength - Left: 3+/5 except shoulder flex/abd 3-/5 Hand Dominance: Right Superintendent Job Strength (Right): good Superintendent Job Strength (Left): fair Right Serial Opposition: Decreased rate, Decreased rhythm, and Decreased accuracy Left Serial Opposition: Decreased rate, Decreased rhythm, and Decreased accuracy Balance: Static sitting balance: fair- Dynamic sitting balance: poor+ Static standing balance: poor Dynamic standing balance: NT Mobility / Transfers: Bed mobility (Components & Assistance): Max assist supine to sit Transfer(s): Max assist for attempted sit <> stand using w/w; unable to achieve full upright position due to increase posterior lean Max assist x1/mod assist x1 sit <> stand using alliance stand Total assist EOB to recliner via alliance stand Activities of Daily Living / Living Skills: UE dressing: Max assist to adjust gown over shoulders and fasten in back Footwear: Patient completed footwear of Footie(s) while Sitting in bedside chair / recliner with overall Maximal assistance. Patient required assistance for donning / doffing right sock / footie and donning / doffing left sock / footie Other: OT assisted with setting patient up for lunch while seated in recliner chair. Plate placed in middle of table and OT told patient where food was at on plate. All containers opened and placed within patient reach. present to assist patient further as needed ASSESSMENT: Rehab Potential (Prognosis): good Problem List: Patient has impairments including: Decreased UE ROM , Decreased UE strength, Decreased coordination, Decreased balance, Decreased mobility, Decreased endurance, Long-standing deficits, and Decreased ADL independence. Barriers to Discharge: Depression, Decreased endurance, Upper extremity weakness, Lower extremity weakness, Long standing deficits, and Medical complications PLAN: OT Discharge Recommendations this date: OT RECOMMENDATIONS: OT Recommendation: Inpatient Rehab Facility Patient at risk for: Patient at high risk for: Falls, Readmission, Injury due to decreased ability to care for self, Injury due to reduced functional status, Injury due to balance deficits, Injury athome as patient has not returned to prior level of function Additional recommendation comments: Recommend Inpatient Rehab/Acute Rehab due to: Ability to actively participate in intensive therapy 3 hours/day, 5 days/week or 900 minutes per week, Highly motivated to participate in therapy, Not at baseline due to impaired ability to complete ADLs, Impaired ability to complete functional mobility, Likely to return to the community at discharge with support system in place, Requires greater than 25% physical assistance with most mobility tasks, Requires greater than 25% physical assistance with most ADL tasks, Requires multiple therapy disciplines to address functional deficits Justification of discharge recommendations flow sheet completed: Yes Frequency of therapy:OT Frequency during current admission: 3-5x/wk Intervention / Education needs: ADL training, Compensatory ADL strategies, Adaptive equipment education, Durable medical equipment education, Balance activities, Functional transfer training, Safety education, and UE home exercise program education Education provided: Patient has been educated on Role of OT, OT plan of care, ADL training, Bed mobility training, Functional transfer training, Balance training, and Safety education. Individual(s) verbalized understanding and needs ongoing reinforcement. Short Term Goals / Care Plan: Multi-Disciplinary Problems (from Occupational Therapy) Active Problems Problem: OT [facility] Start Date: 11/28/24 Goal Start Date Expected End Date End Date OT [facility] - Mis 1 11/28/24 12/05/24 -- Goal Details: Patient will complete functional transfers using least restrictive device with mod assist 1 time. Goal Start Date Expected End Date End Date OT [facility] - Mis 2 11/28/24 12/05/24 -- Goal Details: Patient will complete upper extremity dressing task with mod assist utilizing appropriate compensatory strategies one time. Goal Start Date Expected End Date End Date OT [facility] - Mis 3 11/28/24 12/05/24 -- Goal Details: Patient will complete lower body dressing task with mod assist utilizing appropriate compensatory strategies x 1. Goal Start Date Expected End Date End Date OT [facility] - [facility] 4 11/28/24 12/05/24 -- Goal Details: Patient will maintain balance sitting at EOB during functional task completion for 5+minutes with min assist in preparation for ADL completion x1. Goal Start Date Expected End Date End Date OT [facility] - [facility] 5 11/28/24 12/05/24 -- Goal Details: Patient will complete HEP to improve BUE strength/endurance and ADL participation with min assist 1 time. If this is the last note, consider this the discharge summary Collette Howe OT 11/28/24 * Rickie Chew MD - 11/28/2024 11:32 AM CDT Infectious Disease Ayad Vipul Shipman Admit Date: 11/27/2024 LOS: 1 Days Consulting Physician: Leanne Dockery MD Reason for consult: Leukocytosis Interval Course Blood cultures remain negative New Symptoms Afebrile, sitting in chair, poor appetite, constipated no bowel movement for the last couple of days, improved WBCs ATBX Vanc/Cefepime Data Vitals: 11/27/24 2036 11/27/24 2136 11/28/24 0007 11/28/24 0747 BP: 139/67 148/59 152/65 BP Location: Left arm Left arm Patient Position: Lying Pulse: 70 58 50 Resp: 16 16 Temp: 36.8 ??C (98.2 ??F) 36.9 ??C (98.4 ??F) TempSrc: Oral SpO2: 93% 96% Weight: Height: Temp (24hrs), Av.7 ??C (98.1 ??F), Min:36.5 ??C (97.7 ??F), Max:36.9 ??C (98.4 ??F) Recent Labs Lab Units 11/28/24 0937 11/27/24 0457 11/25/24 1454 WBC K/cumm 20.83* 33.51* 10.17* HEMOGLOBIN g/dL 10.6* 11.3* 11.8* HEMATOCRIT % 32.7* 33.8* 35.2* PLATELETS K/cumm 298 337 331 Recent Labs Lab Units 11/28/24 0937 11/25/24 1454 BUN SERUM mg/dL 16 12 CREATININE mg/dL 0.74* 0.91 Scheduled Meds:apixaban, 5 mg, oral, BID atorvastatin, 80 mg, oral, QAM cefepime, 2,000 mg, intravenous, Q8H JARETH cetirizine, 10 mg, oral, QAM clopidogreL, 75 mg, oral, Daily ezetimibe, 10 mg, oral, Daily famotidine, 20 mg, oral, BID ferrous sulfate, 65 mg of elemental iron, oral, BID with meals (bkfst, dinner) fluticasone propionate, 1 spray, each nostril, QAM folic acid, 1 mg, oral, Daily lisinopriL, 10 mg, oral, Daily magnesium oxide, 400 mg, oral, BID metoprolol tartrate, 25 mg, oral, BID tamsulosin, 0.4 mg, oral, Daily with dinner thiamine, 100 mg, oral, Daily vancomycin, 15 mg/kg, intravenous, Q24H JARETH Continuous Infusions: PRN Meds:. acetaminophen lubricant docusate sodium ondansetron ramelteon Review of Systems: Gen: denies fevers, denies chills, denies sweats, denies unintentional weight loss HEENT: Denies sore throat, denies thrush Neck: Denies palpable lymph nodes, denies neck stiffness Cv: denies chest pain, denies palpitations Resp: Denies SOB, Denies orthopnea Gi: Denies abdominal pain, Denies diarrhea, denies n/v Extrem: Denies gross deformities, denies joint pain, denies myalgias Skin: Denies rashes, denies lesions Neuro: Denies weakness, denies paresthesias, denies memory loss Psych: denies depression, denies anxiety Objective: Vitals: 24hr Min/Max: Temp Min: 36.7 ??C (98.1 ??F) Max: 38.2 ??C (100.8 ??F) Pulse Min: 72 Max: 113 BP Min: 129/71 Max: 173/63 Resp Min: 18 Max: 21 SpO2 Min: 95 % Max: 96 % Physical Exam: General appearance: alert, cooperative, no distress HEENT: (-)icterus, Oropharnyx is normal, NCAT Neck: No palpable LN Lungs: breath sounds normal and symmetric; minimal respiratory effort, no r/w/c Heart: regular rhythm, normal S1 and S2, no m/r/g Abdomen: soft without mass, non-tender, +bowel sounds, no HSM Skin: (-)new rashes, no ulcerations MSK: no gross deformities, FROM Extremities : no Edema, pulses present bilaterally Neuro: No focal deficits Psych: Appropriate mood and affect Lab/Radiology/Diagnostic Review: 11/26 CT chest abdomen pelvis without IMPRESSION: 1. Possible underlying cystitis. 2. Recommend follow up of the Incidental cecal thickening Additional Imaging In 1 Month with referral to gastroenterology and possible endoscopy. 3. High attenuation of the renal. Metastases that may represent medullary nephrocalcinosis or underlying dehydration state.. 11/27 blood cultures currently 11/25 UA negative 11/15 blood culture no growth 11/15 urine culture greater than 1000 colonies of Klebsiella Assessment: Low-grade fever, leukocytosis, unclear source Recent history of UTI treated repeat UA negative Recent history of stroke History of CAD status post CABG Anemia History of CVA with right-sided hemiparesis Plan: DC vanc Continue on cefepime pending cultures Trial of laxatives for constipation Monitor temp and CBC,improve Respiratory PCR neg Supportive care * Carlos Mensah MD - 11/28/2024 9:51 AM CDT General Medicine Daily Progress PCP: Raquel Callejas [phone] Admit Date: 11/27/2024 9:48 AM Hospital Day: SUBJECTIVE Interval History: Feeling chest tightness this morning. Also feeling weak. OBJECTIVE Vitals: 24hr Min/Max: Temp Min: 36.5 ??C (97.7 ??F) Max: 36.9 ??C (98.4 ??F) Pulse Min: 50 Max: 111 BP Min: 106/49 Max: 180/68 Resp Min: 16 Max: 21 SpO2 Min: 93 % Max: 97 % Most Recent : Vitals: 11/27/24203511/27/24 2136 11/28/24 0007 11/28/24 0747 BP: 139/67 148/59 152/65 BP Location: Left arm Left arm Patient Position: Lying Pulse: 70 58 50 Resp: 16 16 Temp: 36.8 ??C (98.2 ??F) 36.9 ??C (98.4 ??F) TempSrc: Oral SpO2: 93% 96% Weight: Height: I/O last 2 completed shifts: In: 120 [P.O.:120] Out: 750 [Urine:750] Intake/Output Summary (Last 24 hours) at 11/28/2024 0938 Last data filed at 11/28/2024 0814 Gross per 24 hour Intake 120 ml Output 750 ml Net -630 ml Physical Exam: General: This is a 74 y.o. male in no acute distress. Lungs: Decreased breath sounds bilaterally. No wheezing or rhonchi auscultated. No accessory muscles to breath. Heart: Normal S1 and S2. No murmurs. Regular rate and rhythm , slightly bradycardic. Abdomen: Soft, nontender. Bowel sounds are present , there is no guarding . Extremities: No cyanosis, clubbing or edema. Neuro: Patient is awake and alert, oriented. Right foot weakness. ACTIVE SCHEDULED & PRN MEDS apixaban, 5 mg, BID aspirin, 81 mg, Daily atorvastatin, 80 mg, QAM cefepime, 2,000 mg, Q8H JARETH cetirizine, 10 mg, QAM ezetimibe, 10 mg, Daily famotidine, 20 mg, BID ferrous sulfate, 65 mg of elemental iron, BID with meals (bkfst, dinner) fluticasone propionate, 1 spray, QAM folic acid, 1 mg, Daily lisinopriL, 10 mg, Daily magnesium oxide, 400 mg, BID metoprolol tartrate, 25 mg, BID tamsulosin, 0.4 mg, Daily with dinner thiamine, 100 mg, Daily vancomycin, 15 mg/kg, Q24H JARETH acetaminophen, 650 mg, Q6H PRN lubricant, 1 drop, QID PRN docusate sodium, 100 mg, BID PRN ondansetron, 4 mg, Q4H PRN ramelteon, 8 mg, Nightly PRN Continuous Infusions: LAB REVIEW Recent Labs Lab Units 11/27/24 0457 11/25/24 1454 WBC K/cumm 33.51* 10.17* HEMOGLOBIN g/dL 11.3* 11.8* HEMATOCRIT % 33.8* 35.2* PLATELETS K/cumm 337 331 NEUTROS PCT % 89.2 77.1 LYMPHS PCT % 4.0 13.2 MONOS PCT % 5.2 6.9 EOS PCT % 0.1 2.3 Recent Labs Lab Units 11/26/24 1703 11/25/24 1454 SODIUM mmol/L -- 132* POTASSIUM PLASMA mmol/L -- 3.5 CHLORIDE mmol/L -- 100 CO2 mmol/L -- 21* ANIONGAP mmol/L -- 11 GLUCOSE mg/dL -- 107 POC GLUCOSE MONITOR mg/dL 114 -- BUN SERUM mg/dL -- 12 CREATININE mg/dL -- 0.91 CALCIUM mg/dL -- 9.5 ALBUMIN g/dL -- 3.7 ALK PHOS Units/L -- 114 ALT Units/L -- 24 AST Units/L -- 24 BILIRUBIN TOTAL mg/dL -- 0.4 LAB TREND CBC: No results found for: WBC, HGB, HCT BMP: No results found for: SODIUM, POTASSIUM, CHLORIDE, BUN, CREATININE, GFR, CALCIUM No results found for: BNP No results found for: ALKPHOS No results found for: MAGNESIUM No results found for: AST No results found for: ALT No results found for: PHOS Radiology: XR Chest 1 View (Results Pending) EKG: Results for orders placed during the hospital encounter of 11/27/24 ECG 12 lead (Preliminary) This result has not been signed. Information might be incomplete. Narrative Vent Rate: 51 bpm RR Interval: 1162 msec IA Interval: 258 msec QRS Duration: 118 msec QT Interval: 442 msec QTC Interval: 419 msec P-R-T [place]: -76 - 2 - 21 degrees IMPRESSION: SINUS BRADYCARDIA WITH FIRST DEGREE AV BLOCK WITH OCCASIONAL SUPRAVENTRICULAR PREMATURE COMPLEXES SEPTAL MYOCARDIAL INFARCTION , OF INDETERMINATE AGE [40+ ms Q WAVE IN V1/V2] ABNORMAL ECG Electronically Signed By: ASSESSMENT AND PLAN All Diagnosis Present on Admission Unless Otherwise Stated: Principal Problem: Fever and chills Fever weakness with possible underlying infection of unclear etiology. On cefepime and vancomycin for now. BC pending , resp panel negative , urine with no UTI. CXR with no clear infiltrates. Chest pain will send EKD, troponin series and have cardiology to see. CAD with CABG and stents on ASA , high intensity statin and metoprolol xl. History of CVA on statin and ASA. Chronic atrial fibrillation on apixaban , metoprolol . Urinary retention on tamsulosin has a urinary catheter now , will need urology as outpatient if fails voiding trial. HTN on lisinopril, metoprolol. Normocytic anemia mild with no active bleeding Mild hyponatremia will trend levels for now. Addendum : case dw cardiology stop ASA and start plavix 75 mg daily, plan for stress test tomorrow. CONSULTS IP CONSULT TO INFECTIOUS DISEASES PHARMACY COMMUNICATION IP CONSULT TO SOCIAL WORK IP CONSULT TO CARDIOLOGY Full Code Voice recognition software Driblet Fluency Direct was used dictate and transcribe this document. Help Desk Representative variances may occur. Despite proofreading, typographical errors may occur. * Evelyn Walker, OT - 11/27/2024 6:46 AM CDT Occupational Therapy-unexpected discharge Patient Name: Ayad Shipman Date of : 1950 Date of Service: 11/28/2024 Occupational Therapy Inpatient Rehabilitation Unexpected Discharge Summary Patient Identification: Ayad Shipman Discharge Summary information reported as of status from most recent O.T. Visit. Demographics: Date of : 1950 Age: 74 y.o. Past Medical History: Past Medical History: Diagnosis Date Dizziness Hyperlipidemia Hypertension Loss of balance Nocturia Visual disturbance History of Present Illness: Patient Active Problem List Diagnosis Date Noted Sepsis ([facility]) 11/27/2024 Fever and chills 11/27/2024 Altered mental status 11/15/2024 CVA (cerebrovascular accident due to intracerebral hemorrhage) ([facility]) 11/15/2024 Episode of unresponsiveness 11/15/2024 Acute CVA (cerebrovascular accident) ([facility]) 10/25/2024 Intracranial vascular stenosis 04/20/2024 History of stroke 02/19/2024 Paresthesia 12/11/2023 Glenohumeral arthritis, right 05/29/2023 Anemia 05/19/2023 Rotator cuff arthropathy of right shoulder 04/16/2023 Chronic rhinitis 01/30/2020 Coronary atherosclerosis 01/30/2020 Essential hypertension 01/30/2020 Hyperlipidemia 01/30/2020 Wax in ear 01/30/2020 Diplopia 01/30/2020 Nocturia 09/05/2016 Dizziness and giddiness 11/22/2015 Date of Admission: 11/27/2024 Date of Discharge: No discharge date for patient encounter. Patient's Last Known Functional Status: Ayad Shipman unexpectedly discharged to acute medical floor from [facility] secondary to decline in medical status. Patient was last seen in Occupational Therapyon 11/26. Please refer to OT Progress Notes for last known functional status pertaining to ADLS, IADLS, Home Exercise Programs as applicable. Assessment: Summary of patient's stay: At time of unexpected discharge, pt functioning with the following assistance: Functional transfers: Mod A Bathing: Min A Grooming: min A UB dress:min A LB dress: max A Footwear: max A Toileting:max A Recommendations: Continue skilled OT at next level inpatient care Equipment provided / ordered: TBD Progress towards goals: Please refer to Multidisciplinary Care Plan and OT Progress Notes for OT Specific goals and patient/family education. 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 documented in this encounter Consult Notes * Wilton Horton - 12/08/2024 2:33 PM CDT [id number] Urgent: Anoint: Yes Holy Com: Yes Bless: Yes Misc: Appreciative of visit Wilton Horton * Wilton Horton - 12/04/2024 12:33 PM CDT [id number] Urgent: Anoint: Yes Holy Com: Yes Bless: Yes Misc: Wilton Horton * Wilton Horton - 12/01/2024 2:43 PM CDT [id number] Urgent: Anoint: Yes Holy Com: Yes Bless: Yes Misc: Wilton Horton * Riri Fish MD - 12/01/2024 2:04 PM CDTAssociated Order(s): CONSULT TO PHYSICAL MEDICINE AND REHAB PM&R CONSULT NOTE P2P completed - 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 Riri Fish MD * Wilton Horton - 11/30/2024 2:47 PM CDT [id number] Urgent: Anoint: Yes Holy Com: Yes Bless: Yes Misc: Wilton Lan Horton * Wilton Horton - 11/28/2024 1:59 PM CDT [id number] Urgent: Anoint:Yes Holy Com: Yes Bless: Yes Misc: in room Wiltonstacey Horton * Sage Tillman MD - 11/28/2024 10:05 AM CDT Cardiology Consult Chart reviewed, patient examined. Discussed with care team. See dictated report Chest pain Recent PCI, Stress test * Santana Bansal MD - 11/28/2024 10:02 AM CDT Chest Pain, MPI today, full note to follow. Santana Bansal MD * Seble Quintanilla BSW - 11/28/2024 8:35 AM CDTAssociated Order(s): IP CONSULT TO SOCIAL WORK SW acknowledge the SW consult for Pt is a readmission, Pt is a high utilizer Pt or high risk for readmission. SW will see Pt and completed the SW assessment. * Sage Tillman MD - 11/28/2024 12:00 AM CDT CARDIAC CONSULTATION Mr. Shipman is a 74-year-old male who is being seen for evaluation of coronary disease, chest pain. HISTORY OF PRESENT ILLNESS The patient is a 74-year-old patient of Dr. Manjarrez who presented to the emergency department of [facility] with symptoms of weakness and unresponsiveness. There was concern that he could have underlying sepsis and he is on antibiotics. Earlier today, he developed dull retrosternal tightness in the chest which he described as moderate in severity, present at rest, having no relationship to activity, lasting about 10 minutes and then resolving on its own. He has a history of coronary artery disease and is status post stent placement in the right coronary artery earlier this year. Cardiology consultation was therefore requested. At the time of my assessment, patient was lying comfortably anddid not appear to be in any significant distress. He was alert, followed commands and was chest pain-free. The patient denied any nausea, vomiting, sweating, lightheadedness, dizziness, or syncope. REVIEW OF SYSTEMS Pertinent positives are mentioned in the history of present illness. PAST MEDICAL HISTORY He is a known patient of. 1. Coronary artery disease status post CABG. Cardiac catheterization in June of this year revealed him to have occluded grafts to the right coronary artery and he underwent PCI of the right coronary artery. 2. Old stroke. 3. Atrial fibrillation. 4. Hypertension. 5. Hyperlipidemia. 6. Anemia. HOME MEDICATIONS Include: 1. Flomax. 2. Eliquis. 3. Metoprolol. 4. Lipitor. 5. Lisinopril. 6. Zyrtec. 7. Magnesium oxide. 8. Zetia. 9. Flonase. 10. Aspirin. 11. Thiamine. PERSONAL HISTORY He is a nonsmoker. Takes alcohol on social occasions. IS ALLERGIC TO MEPERIDINE. FAMILY HISTORY There is no family history of coronary artery disease, congestive heart failure, stroke, peripheralvascular disease. PHYSICAL EXAMINATION CONSTITUTIONAL : Elderly patient of average build lying in bed. He is alert, follows commands. EYES: Examination is normal. There is no pallor or icterus. NECK: Central trachea. There is no thyromegaly. JVP is not raised. ENMT: Lips and oral mucosa normal. SKIN: Warm and moist. There are no rashes. MUSCULOSKELETAL EXAM: Limited exam is within normal limits. VITAL SIGNS: Pulse of 50 per minute, blood pressure 152/65, respiratory rate 18 per minute and he is afebrile. There are no carotid bruits. Peripheral pulses are 1+. CHEST: Examination reveals diminished air entry bilaterally. There are no added sounds. CARDIOVASCULAR: S1, S2 normal. There is no S3, S4. There is a pansystolic murmur 2/6 present. ABDOMEN: There is no tenderness, no guarding or rigidity. There is no organomegaly or free fluid and bowel sounds are present. NEUROLOGICAL: The patient is alert, follows commands. LAB VALUES Albumin of 3.7, sodium of 132, potassium 3.5, chloride 100, carbon dioxide 21, BUN of 12, creatinine 0.91, glucose of 107, [place] [address], hemoglobin 11.2, hematocrit 33.8, platelet count of 337,000. IMPRESSION 1. Tightness in the chest. 2. Known coronary disease status post CABG and PCI of complex right coronary artery stenosis. 3. Hypertension. 4. Old stroke. 5. Hyperlipidemia. 6. Atrial fibrillation. 7. Weakness, fatigue, possible sepsis. ACTION PLAN The patient presented to the emergency department of this hospital with complaints of generalized weakness and fatigue. He was noted to have features of sepsis and has been placed on antibiotics. Earlier today, he developed dull retrosternal chest pain, and cardiology consultation was requested. The patient's old records have been reviewed. He had PCI of complex stenosis in the right coronary artery in June of this year. EKG has been ordered and serial troponins are being checked. Stress test for risk stratification of coronary artery disease has been also ordered. The patient is on Eliquis for atrial fibrillation and was on aspirin. After discussions with Dr. Manjarrez, I have changed the patient's aspirin to Plavix. The patient has mild LV dysfunction on echo. He is on metoprolol which will be changed to Coreg. Entresto is being added. The patient's medical problems are being managed by Dr. Manjarrez. Job ID/Internal Job ID: [id number] * Rickie Chew MD - 11/27/2024 1:33 PM CDT Infectious Disease Consult Consulting Physician: Leanne Dockery MD Reason for consult: Leukocytosis HPI: Patient is a 74 y.o. male with history of hypertension, CVA, CAD status post CABG, AFib, history ofurinary retention, hyperlipidemia and diplopia admitted to the hospital on 11/15 from rehab with unresponsive workup was negative for any new stroke, the patient transferred back to rehab on 11/18 after treated for possible UTI, treated with cefdinir up until 11/24, patient was evaluated by the Urology for incomplete bladder emptying and urinary retention. The patient was noted to have worsening [place] [address], he also reported to have fevers with temp up to 100.8 with incontinence of the urine, he had blood cultures drawn and was started on vanc and cefepime. Infectious disease service being consulted for above reasons. Patient is currently comfortable on room air denies any complaint he reported he had some runny nose last couple of days which has been resolved today, currently denies any chest pain cough shortness of abdominal pain nausea vomiting or diarrhea. He has a condom catheter in place. PMH: Past Medical History: Diagnosis Date Dizziness Hyperlipidemia Hypertension Loss of balance Nocturia Visual disturbance PSH: Past Surgical History: Procedure Laterality Date ANKLE SURGERY CORONARY ARTERY BYPASS GRAFT 2004 x4 on Plavix HEART SURGERY LASIK ORAL SURGERY Med: Current Facility-Administered Medications Medication Dose Route Frequency Provider Last Rate Last Admin acetaminophen (TYLENOL) tablet 650 mg 650 mg oral Q6H PRN Leanne Dockery MD 650 mg at 11/27/24 1028 apixaban (ELIQUIS) tablet 5 mg 5 mg oral BID Leanne Dcokery MD aspirin enteric coated tablet 81 mg 81 mg oral Daily Leanne Dockery MD [START ON 11/28/2024] atorvastatin (LIPITOR) tablet 80 mg 80 mg oral QAM Leanne Dockery MD cefepime (MAXIPIME) 2,000 mg in sodium chloride 0.9% 100 mL IVPB 2,000 mg intravenous Q8H Jasmin Harris NP cetirizine (ZyrTEC) tablet 10 mg 10 mg oral QAM Leanne Dockery MD ezetimibe (ZETIA) tablet 10 mg 10 mg oral Daily Leanne Dockery MD ferrous sulfate delayed release tablet 65 mg of elemental iron 65 mg of elemental iron oral BID with meals (bkfst, dinner) Leanne Dockery MD [START ON 11/28/2024] fluticasone propionate (FLONASE) 50 mcg/actuation nasal spray 1 spray 1 spray each nostril DELONTEM Leanne Dockery MD folic acid (FOLVITE) tablet 1 mg 1 mg oral Daily Leanne Dockery MD [START ON 11/28/2024] lisinopriL (PRINIVIL,ZESTRIL) tablet 10 mg 10 mg oral Daily Leanne Dockery MD magnesium oxide (MAG-OX) tablet 400 mg 400 mg oral BID Leanne Dockery MD metoprolol tartrate (LOPRESSOR) immediate release tablet 25 mg 25 mg oral BID Leanne Dockery MD ondansetron (ZOFRAN) injection 4 mg 4 mg intravenous Q4H PRN Leanne Dockery MD tamsulosin (FLOMAX) extended release capsule 0.4 mg 0.4 mg oral Daily with dinner Leanne Dockery MD thiamine (VITAMIN B-1) tablet 100 mg 100 mg oral Daily Leanne Dockery MD [START ON 11/28/2024] vancomycin 1,000 mg/200 mL in dextrose 5% (premix) 1,000 mg 15 mg/kg intravenous Q24H Jasmin Harris NP Facility-Administered Medications Ordered in Other Encounters Medication Dose Route Frequency Provider Last Rate Last Admin [ - Suspended Admission] acetaminophen (TYLENOL) tablet 650 mg 650 mg oral Q6H PRN Riri Fish MD 650 mg at 11/27/24 0553 [ - Suspended Admission] albuterol HFA (PROVENTIL HFA,VENTOLIN HFA,PROAIR HFA) 90 mcg/actuation inhaler 2 puff 2 puff inhalation Q4H PRN (RT) Riri Fish MD [ - Suspended Admission] apixaban (ELIQUIS) tablet 5 mg 5 mg oral BID Riri Richmond MD 5 mg at 11/27/24 0816 [ - Suspended Admission] artificial tears (nsrldty-edtzonbjdkjs-hsircwhs) (GENTEAL TEARS MODERATE) 0.1-0.3-0.2 % ophthalmic solution 1 drop 1 drop each eye TID Riri Fish MD 1 drop at 11/27/24 0817 [ - Suspended Admission] atorvastatin (LIPITOR) tablet 80 mg 80 mg oral Zen Mello MD 80 mg at 11/27/24 0816 [ - Suspended Admission] baclofen (LIORESAL) tablet 5 mg 5 mg oral TID with meals Riri Fish MD 5 mg at 11/27/24 0554 [ - Suspended Admission] calcium carbonate (TUMS) chewable tablet 1,000 mg 400 mg of elemental calcium oral TID PRN Riri Fish MD 1,000 mg at 11/22/24 0559 [ - Suspended Admission] cefepime (MAXIPIME) 2,000 mg in sodium chloride 0.9% 100 mL IVPB 2,000 mg intravenous Q8H JARETH Riri Fish MD 220 mL/hr at 11/27/24 0803 2,000 mg at 11/27/24 0803 [ - Suspended Admission] cetirizine (ZyrTEC) tablet 10 mg 10 mg oral QAM Riri Richmond MD 10 mg at 11/26/24 0831 [ - Suspended Admission] diclofenac sodium (VOLTAREN) 1 % gel 2 g 2 g topical TID Riri Fish MD 2 g at 11/27/24817 [ - Suspended Admission] ezetimibe (ZETIA) tablet 10 mg 10 mg oral Daily Riri Richmond MD 10 mg at 11/26/242055 [ - Suspended Admission] famotidine (PEPCID) tablet 20 mg 20 mg oral BID Riri Richmond MD 20 mg at 11/27/24815 [ - Suspended Admission] ferrous sulfate delayed release tablet 65 mg of elemental iron 65 mg of elemental iron oral Daily with breakfast Riri Richmond MD 65 mg of elemental iron at 11/27/24815 [ - Suspended Admission] FLUoxetine (PROzac) capsule 40 mg 40 mg oral Daily Zen Fish MD 40 mg at 11/27/24815 [ - Suspended Admission] fluticasone propionate (FLONASE) 50 mcg/actuation nasal spray 1 spray 1 spray each nostril QAM Riri Fish MD 1 spray at 11/27/24817 [ - Suspended Admission] folic acid (FOLVITE) tablet 1 mg 1 mg oral Daily Riri Fish MD 1 mg at 11/26/24 0832 [ - Suspended Admission] hydrOXYzine (ATARAX) tablet 25 mg 25 mg oral QID PRN Riri Fish MD 25 mg at 11/24/242013 [ - Suspended Admission] lidocaine (ASPERCREME) 4 % patch 3 patch 3 patch transdermal Q24H Riri Fish MD 3 patch at 11/26/24 1217 [ - Suspended Admission] lidocaine (GLYDO) 2 % jelly 100 mg 5 mL urethral QID PRN Riri Fish MD [ - Suspended Admission] lisinopriL (PRINIVIL,ZESTRIL) tablet 20 mg 20 mg oral Daily Riri Fish MD 20 mg at 11/27/24 0816 [ - Suspended Admission] magnesium oxide (MAG-OX) tablet 400 mg 400 mg oral Daily Riri Fish MD 400 mg at 11/27/24 0816 [ - Suspended Admission] methocarbamoL (ROBAXIN) tablet 500 mg 500 mg oral TID PRN Riri Fish MD 500 mg at 11/21/24 1424 [ - Suspended Admission] ondansetron (ZOFRAN) tablet 4 mg 4 mg oral TID PRN Zen Fish MD 4 mg at 11/25/24 1941 [ - Suspended Admission] phenoL (CHLORASEPTIC) 1.4 % oral spray 1 spray 1 spray mouth/throat Q3H PRN Riri Fish MD [ - Suspended Admission] polyethylene glycol (MIRALAX) packet 17 g 17 g oral Daily Riri Fish MD 17 g at 11/26/24 0831 [ - Suspended Admission] ramelteon (ROZEREM) tablet 8 mg 8 mg oral Nightly PRN Riri Fish MD 8 mg at 11/22/24 2100 [ - Suspended Admission] senna-docusate (PERICOLACE) 8.6-50 mg per tablet 1 tablet 1 tablet oral BID Riri Fish MD 1 tablet at 11/27/24 0816 [ - Suspended Admission] simethicone (MYLICON) chewable tablet 80 mg 80 mg oral TID PRN Riri Fish MD [ - Suspended Admission] tamsulosin (FLOMAX) extended release capsule 0.8 mg 0.8 mg oral Daily withdinner Riri Fish MD 0.8 mg at 11/26/24 1841 [ - Suspended Admission] thiamine (VITAMIN B-1) tablet 100 mg 100 mg oral Daily Riri Fish MD 100 mg at 11/26/24 0832 [ - Suspended Admission] traMADoL (ULTRAM) tablet 25 mg 25 mg oral Q8H PRN Riri Fish MD [ - Suspended Admission] traZODone (DESYREL) tablet 50 mg 50 mg oral Nightly Riri Fish MD 50 mg at 11/26/242055 [ - Suspended Admission] vancomycin 1,000 mg/200 mL in dextrose 5% (premix) 1,000 mg 15 mg/kg intravenous Daily Riri Fish MD Allergies: Allergies Allergen Reactions Meperidine Vomiting, Other (See comments) and Nausea & Vomiting SH: Social History Tobacco Use Smoking status: Former Current packs/day: 0.00 Types: Cigarettes Quit date: 1999 Years since quittin. Smokeless tobacco: Never Substance and Sexual Activity Drug use: Yes Types: Alcohol Sexual activity: Not Currently Partners: Female Alcohol Use: Alcohol Misuse (11/18/2024) AUDIT-C Frequency of Alcohol Consumption: 4 or more times a week Average Number of Drinks: 3 or 4 Frequency of Binge Drinking: Never FH: Family History Problem Relation Age of Onset Macular degeneration Mother No Known Problems Father Anesthesia problems Neg Hx Immunosuppressive Medications: apixaban, aspirin, atorvastatin, cetirizine, ezetimibe, ferrous sulfate, fluticasone propionate, folic acid, lisinopriL, magnesium oxide, metoprolol tartrate, tamsulosin, and thiamine Active LDAs: Peripheral IV 11/26/24 20 G Anterior;Right Forearm (Active) Number of days: 1 [REMOVED] Peripheral IV 11/15/24 20 G Right Antecubital (Removed) Site Assessment Clean and dry 11/18/24 112 IV Line Status Single Saline locked;Flushes easily 11/18/241124 Dressing Type Transparent 11/18/241124 Dressing Status Clean, dry, intact 11/18/24 1125 Dressing Intervention Site care 11/15/242006 Dressing Change Due 11/22/24 11/17/241999 Number of days: 3 [REMOVED] Urethral Catheter Coude (Removed) Number of days: 10 [REMOVED] Urethral Catheter (Removed) Site Assessment Clean;Skin intact 11/21/24 1250 Catheter Status Open to gravity drainage 11/21/24 1250 Urine Collection Container Drainage bag with urometer 11/21/24 1250 Securement Method StatLock 11/21/24 1250 [place] Necessity Reason Reviewed with Care Team Other (Comment) 11/21/24 1250 Urinary Catheter Reviewed With Care Team/Physician 11/18/24 1130 Urinary tube output (mL) 175 mL 11/21/24 1250 Urinary Tube Net Output (mL) 175 mL 11/21/24 1250 Date StatLock Applied 11/17/24 11/17/241999 Location of StatLock Left thigh 11/20/24 1822 Number of days: 4 Review of Systems: Gen: denies fevers, denies chills, denies sweats, denies unintentional weight loss HEENT: Denies sore throat, denies thrush Neck: Denies palpable lymph nodes, denies neck stiffness Cv: denies chest pain, denies palpitations Resp: Denies SOB, Denies orthopnea Gi: Denies abdominal pain, Denies diarrhea, denies n/v Extrem: Denies gross deformities, denies joint pain, denies myalgias Skin: Denies rashes, denies lesions Neuro: Denies weakness, denies paresthesias, denies memory loss Psych: denies depression, denies anxiety Objective: Vitals: 24hr Min/Max: Temp Min: 36.7 ??C (98.1 ??F) Max: 38.2 ??C (100.8 ??F) Pulse Min: 72 Max: 113 BP Min: 129/71 Max: 173/63 Resp Min: 18 Max: 21 SpO2 Min: 95 % Max: 96 % Physical Exam: General appearance: alert, cooperative, no distress HEENT: (-)icterus, Oropharnyx is normal, NCAT Neck: No palpable LN Lungs: breath sounds normal and symmetric; minimal respiratory effort, no r/w/c Heart: regular rhythm, normal S1 and S2, no m/r/g Abdomen: soft without mass, non-tender, +bowel sounds, no HSM Skin: (-)new rashes, no ulcerations MSK: no gross deformities, FROM Extremities : no Edema, pulses present bilaterally Neuro: No focal deficits Psych: Appropriate mood and affect Lab/Radiology/Diagnostic Review: 11/26 CT chest abdomen pelvis without IMPRESSION: 1. Possible underlying cystitis. 2. Recommend follow up of the Incidental cecal thickening Additional Imaging In 1 Month with referral to gastroenterology and possible endoscopy. 3. High attenuation of the renal. Metastases that may represent medullary nephrocalcinosis or underlying dehydration state.. Recent Labs Lab Units 11/27/24 0457 11/25/24 1454 11/21/24 0549 WBC K/cumm 33.51* 10.17* 8.44 HEMOGLOBIN g/dL 11.3* 11.8* 12.5* HEMATOCRIT % 33.8* 35.2* 38.5* PLATELETS K/cumm 337 331 337 Recent Labs Lab Units 11/25/24 1454 11/21/24 0549 BUN SERUM mg/dL 12 17 CREATININE mg/dL 0.91 0.86 Lab Results Component Value Date ALT 24 11/25/2024 AST 24 11/25/2024 ALKPHOS 114 11/25/2024 BILITOT 0.4 11/25/202411/27 blood cultures currently 11/25 UA negative 11/15 blood culture no growth 11/15 urine culture greater than 1000 colonies of Klebsiella Assessment: Low-grade fever, leukocytosis, unclear source Recent history of UTI treated repeat UA negative Recent history of stroke History of CAD status post CABG Anemia History of CVA with right-sided hemiparesis Plan: Continue on vanc and cefepime at this time pending culture Stool for C diff if any diarrhea, none reported Monitor temp and CBC Respiratory PCR Supportive care Thank you for allowing me to participate in the care of this patient will follow along. Rickie Chew MD [place] [facility] 11/27/2024 Voice recognition software was used to complete this document, therefore, title coordinator variances may occur. documented in this encounter Nursing Notes * Alejo Hogan RN - 12/09/2024 7:35 PM CDT Pt changed to home cloths ready for discharge, IV removed, telemetry discontinued. Report and handoff done with EMS. Pt discharged via ems. * Alejo Hogan RN - 12/09/2024 4:00 PM CDT Pt due for discharge to [facility]. Report called, handed off completed. Pt to leave at 0700 by EMS * Steffanie Elias RN - 12/07/2024 5:[address] Tillman updated that patient/family requesting to speak with him post- procedure. Provided noted he will be by to speak with family at bedside tomorrow morning. Patient and spouse updated at this time. * Wendy Jimenez RN - 12/05/2024 11:29 AM CDT 1120: Pt's HR in 120's. Pt resting in bed. OT into see pt. DT. Tillman msg about ST in 120's . EKG ordered. * Mukesh Lange - 12/05/2024 3:00 AM CDT Tle called at 0245 due to pauses in pt heart rate in 5 minutes he had 3 pauses 4.52 seconds 4.29, 2.92. Epic chat was wrote to the attending doctor. PT is in no distress at this time and no needs arewanted call light in reach and bed low/locked * Mukesh Lange - 11/30/2024 1:43 AM CDT Pt is refusing to wear his irvin boots and the mepilex's to his heel and elbows. Pt was educated on the purpose of these to protect from bed sores. documented in this encounter Miscellaneous Notes * Plan of Care - Alejo Hogan RN - 12/09/2024 2:19 PM CDT Goals: Clinical Goals for the Shift: VSS, Free from falls, Safety and Comfort, Free from falls, Nutrition Gas Appliance Adjuster Patient Centered Goal for Treatment: TBD Summary: Problem: Isolation Lack of Knowledge Goal: Knowledge of risk factors and measures for prevention of condition will improve Outcome: Progressing Problem: Isolation Physical Regulation Goal: Isolation- Spread of further infection will be prevented Outcome: Progressing Goal: Isolation- Complications related to the disease process, condition, or treatment will be avoided or minimized. Outcome: Progressing Problem: Lack of Knowledge Goal: Ability to develop a pain control plan will improve Outcome: Progressing Problem: Medication Goal: Satisfaction with pain management medication regimen will improve Outcome: Progressing Problem: Sensory Goal: Ability to identify factors that increase pain levels will improve while working to decrease the patient's pain levels Outcome: Progressing Problem: Coping Goal: Ability to cope will improve Outcome: Progressing Problem: Health Behavior Goal: Identification of resources available to assist in meeting health care needs will improve Outcome: Progressing Problem: Skin Integrity Impairment Risk Goal: Mobility will improve Outcome: Progressing Goal: Understanding of ways to prevent future skin breakdown will improve Outcome: Progressing Goal: Nutritional status will improve Outcome: Progressing Goal: Risk for impaired skin integrity will decrease Outcome: Progressing Problem: Fall Risk Goal: Ability to state ways to decrease the risk of falls will improve Outcome: Progressing Goal: Will remain free from falls Outcome: Progressing Goal: Will remain free from injury from falls Outcome: Progressing Problem: Discharge Planning Goal: Understanding discharge needs will improve Outcome: Progressing Problem: Neurosensory Goal: Remains free of injury related to seizures activity Outcome: Progressing Problem: Cardiovascular Goal: Absence of cardiac dysrhythmias or at baseline Outcome: Progressing Goal: Cardiovascular status will improve Outcome: Progressing Goal: Maintains optimal cardiac output and hemodynamic stability Outcome: Progressing Problem: Musculoskeletal Goal: Return mobility to safest level of function Outcome: Progressing Goal: Mobility, ROM and muscle strength will improve Outcome: Progressing Goal: Return ADL status to a safe level of function Outcome: Progressing Goal: Ability to perform activities at highest level will improve Outcome: Progressing Problem: Respiratory Goal: Achieves optimal ventilation and oxygenation Outcome: Progressing Problem: Skin/Tissue Integrity Goal: Skin integrity remains intact Outcome: Progressing Problem: Genitourinary Goal: Absence of urinary retention Outcome: Progressing Problem: Metabolic/Fluid and Electrolytes Goal: Electrolytes maintained within normal limits Outcome: Progressing * Plan of Care - Dorie Bates RN - 12/09/2024 12:51 PM CDT 12/09/24 1250 Discharge Summary Actual Discharge Level of Care alf facility (short term care) ([facility]) Discharge Additional Assistance Does the patient need discharge transport arranged? Yes Type of Transportation Ambulance/EMS Has discharge transport been arranged? Yes D/C Transport Anticipated Date 12/09/24 D/C Transport Anticipated Time 1900 IMM given and reviewed with patient. Verbalized understanding. Copy left at the bedside and signed copy placed in the patients chart. CM confirmed with Toya [facility] Admission Coordinator, that patient is able to admit today. EMS transportation arranged for 12/09/2024 at 1900 as the team is wanting patient to have a bm prior to d/c. CMN faxed. Report #: [phone] ([facility] for [address] [place] [address] nurse) Fax #: [phone] Discharge Disposition: Care Home Facility (03). PIYUSH Weber-CHARAN, Nurse Special Skills Officer [phone] * Plan of Care - Vandana Felicianoemil - 12/09/2024 1:10 AM CDT Problem: Isolation Lack of Knowledge Goal: Knowledge of risk factors and measures for prevention of condition will improve Outcome: Ongoing Flowsheets (Taken 12/06/2024224) Knowledge of risk factors and measures for prevention of condition will improve: Discuss risk of infection Discuss good hand hygiene Discuss infection prevention measures Teach significant others hand washing technique Discuss signs and symptoms of infection Use teach-back technique to assess learning Problem: Isolation Physical Regulation Goal: Isolation- Spread of further infection will be prevented Outcome: Ongoing Goal: Isolation- Complications related to the disease process, condition, or treatment will be avoided or minimized. Outcome: Ongoing Problem: Lack of Knowledge Goal: Ability to develop a pain control plan will improve Outcome: Ongoing Problem: Medication Goal: Satisfaction with pain management medication regimen will improve Outcome: Ongoing Problem: Sensory Goal: Ability to identify factors that increase pain levels will improve while working to decrease the patient's pain levels Outcome: Ongoing Problem: Coping Goal: Ability to cope will improve Outcome: Ongoing Problem: Health Behavior Goal: Identification of resources available to assist in meeting health care needs will improve Outcome: Ongoing Problem: Skin Integrity Impairment Risk Goal: Mobility will improve Outcome: Ongoing Goal: Understanding of ways to prevent future skin breakdown will improve Outcome: Ongoing Goal: Nutritional status will improve Outcome: Ongoing Goal: Risk for impaired skin integrity will decrease Outcome: Ongoing Problem: Fall Risk Goal: Ability to state ways to decrease the risk of falls will improve Outcome: Ongoing Goal: Will remain free from falls Outcome: Ongoing Goal: Will remain free from injury from falls Outcome: Ongoing Problem: Discharge Planning Goal: Understanding discharge needs will improve Outcome: Ongoing Problem: Neurosensory Goal: Remains free of injury related to seizures activity Outcome: Ongoing Problem: Cardiovascular Goal: Absence of cardiac dysrhythmias or at baseline Outcome: Ongoing Goal: Cardiovascular status will improve Outcome: Ongoing Goal: Maintains optimal cardiac output and hemodynamic stability Outcome: Ongoing Problem: Musculoskeletal Goal: Return mobility to safest level of function Outcome: Ongoing Goal: Mobility, ROM and muscle strength will improve Outcome: Ongoing Goal: Return ADL status to a safe level of function Outcome: Ongoing Goal: Ability to perform activities at highest level will improve Outcome: Ongoing Problem: Respiratory Goal: Achieves optimal ventilation and oxygenation Outcome: Ongoing Problem: Skin/Tissue Integrity Goal: Skin integrity remains intact Outcome: Ongoing Problem: Genitourinary Goal: Absence of urinary retention Outcome: Ongoing Problem: Metabolic/Fluid and Electrolytes Goal: Electrolytes maintained within normal limits Outcome: Ongoing Goals: Clinical Goals for the Shift: monitor VS, pain management, maintain comfort and safety Nursing Home Patient Centered Goal for Treatment: DC patient at baseline * Plan of Care - Ceci Back RN - 12/08/2024 3:35 PM CDT Problem: Isolation Lack of Knowledge Goal: Knowledge of risk factors and measures for prevention of condition will improve 12/08/2024 153 by Ceci Back, RN Outcome: Progressing 12/08/2024 1509 by Ceci Back, RN Outcome: Progressing Problem: Isolation Physical Regulation Goal: Isolation- Spread of further infection will be prevented 12/08/2024 1535 by Ceci Back, RN Outcome: Progressing 12/08/2024 1509 by Ceci Back RN Outcome: Progressing Goal: Isolation- Complications related to the disease process, condition, or treatment will be avoided or minimized. 12/08/2024 1535 by Ceci Back RN Outcome: Progressing 12/08/2024 1509 by Ceci Back RN Outcome: Progressing Problem: Lack of Knowledge Goal: Ability to develop a pain control plan will improve 12/08/2024 1535 by Ceci Back RN Outcome: Progressing 12/08/2024 1509 by Ceci Back RN Outcome: Progressing Problem: Medication Goal: Satisfaction with pain management medication regimen will improve 12/08/2024 1535 by Ceci Back RN Outcome: Progressing 12/08/2024 1509 by Ceci Back RN Outcome: Progressing Problem: Sensory Goal: Ability to identify factors that increase pain levels will improve while working to decrease the patient's pain levels 12/08/2024 1535 by Ceci Back RN Outcome: Progressing 12/08/2024 1509 by Ceci Back RN Outcome: Progressing Problem: Coping Goal: Ability to cope will improve 12/08/2024 1535 by Ceci Back RN Outcome: Progressing 12/08/2024 1509 by Ceci Back RN Outcome: Progressing Problem: Health Behavior Goal: Identification of resources available to assist in meeting health care needs will improve 12/08/2024 1535 by Ceci Back RN Outcome: Progressing 12/08/2024 1509 by Ceci Back RN Outcome: Progressing Problem: Skin Integrity Impairment Risk Goal: Mobility will improve 12/08/2024 1535 by Ceci Back RN Outcome: Progressing 12/08/2024 1509 by Ceci Back RN Outcome: Progressing Goal: Understanding of ways to prevent future skin breakdown will improve 12/08/2024 1535 by Ceci Back RN Outcome: Progressing 12/08/2024 1509 by Ceci Back RN Outcome: Progressing Goal: Nutritional status will improve 12/08/2024 1535 by Ceci Back RN Outcome: Progressing 12/08/2024 1509 by Ceci Back RN Outcome: Progressing Goal: Risk for impaired skin integrity will decrease 12/08/2024 1535 by Ceci Back RN Outcome: Progressing 12/08/2024 1509 by Ceci Back RN Outcome: Progressing Problem: Fall Risk Goal: Ability to state ways to decrease the risk of falls will improve 12/08/2024 1535 by Ceci Back RN Outcome: Progressing 12/08/2024 1509 by Ceci Back RN Outcome: Progressing Goal: Will remain free from falls 12/08/2024 1535 by Ceci Back RN Outcome: Progressing 12/08/2024 1509 by Ceci Back RN Outcome: Progressing Goal: Will remain free from injury from falls 12/08/2024 1535 by Ceci Back RN Outcome: Progressing 12/08/2024 1509 by Ceci Back RN Outcome: Progressing Problem: Discharge Planning Goal: Understanding discharge needs will improve 12/08/2024 1535 by Ceci Back RN Outcome: Progressing 12/08/2024 1509 by Ceci Back RN Outcome: Progressing Problem: Neurosensory Goal: Remains free of injury related to seizures activity 12/08/2024 1535 by Ceci Back RN Outcome: Progressing 12/08/2024 1509 by Ceci Back RN Outcome: Progressing Problem: Cardiovascular Goal: Absence of cardiac dysrhythmias or at baseline 12/08/2024 1535 by Ceci Back RN Outcome: Progressing 12/08/2024 1509 by Ceci Back RN Outcome: Progressing Goal: Cardiovascular status will improve 12/08/2024 1535 by Ceci Back RN Outcome: Progressing 12/08/2024 1509 by Ceci Back RN Outcome: Progressing Goal: Maintains optimal cardiac output and hemodynamic stability 12/08/2024 1535 by Ceci Back RN Outcome: Progressing 12/08/2024 1509 by Ceci Back RN Outcome: Progressing Problem: Musculoskeletal Goal: Return mobility to safest level of function 12/08/2024 1535 by Ceci Back RN Outcome: Progressing 12/08/2024 1509 by Ceci Back RN Outcome: Progressing Goal: Mobility, ROM and muscle strength will improve 12/08/2024 1535 by Ceci Back RN Outcome: Progressing 12/08/2024 1509 by Ceci Back RN Outcome: Progressing Goal: Return ADL status to a safe level of function 12/08/2024 1535 by Ceci Back RN Outcome: Progressing 12/08/2024 1509 by Ceci Back RN Outcome: Progressing Goal: Ability to perform activities at highest level will improve 12/08/2024 1535 by Ceci Back RN Outcome: Progressing 12/08/2024 1509 by Ceci Back RN Outcome: Progressing Problem: Respiratory Goal: Achieves optimal ventilation and oxygenation 12/08/2024 153 by Ceci Back RN Outcome: Progressing 12/08/2024 1509 by Ceci Back RN Outcome: Progressing Problem: Skin/Tissue Integrity Goal: Skin integrity remains intact 12/08/2024 1535 by Ceci Back RN Outcome: Progressing 12/08/2024 1509 by Ceci Back RN Outcome: Progressing Problem: Genitourinary Goal: Absence of urinary retention 12/08/2024 1535 by Ceci Back RN Outcome: Progressing 12/08/2024 1509 by Ceci Back RN Outcome: Progressing Problem: Metabolic/Fluid and Electrolytes Goal: Electrolytes maintained within normal limits 12/08/2024 1535 by Ceci Back RN Outcome: Progressing 12/08/2024 1509 by Ceci Back RN Outcome: Progressing Goals: Clinical Goals for the Shift: vss, comfort and safety Nursing Home Patient Centered Goal for Treatment: return to baseline Summary: * Plan of Care - Ceci Back RN - 12/08/2024 3:09 PM CDT Problem: Isolation Lack of Knowledge Goal: Knowledge of risk factors and measures for prevention of condition will improve Outcome: Progressing Problem: Isolation Physical Regulation Goal: Isolation- Spread of further infection will be prevented Outcome: Progressing Goal: Isolation- Complications related to the disease process, condition, or treatment will be avoided or minimized. Outcome: Progressing Problem: Lack of Knowledge Goal: Ability to develop a pain control plan will improve Outcome: Progressing Problem: Medication Goal: Satisfaction with pain management medication regimen will improve Outcome: Progressing Problem: Sensory Goal: Ability to identify factors that increase pain levels will improve while working to decrease the patient's pain levels Outcome: Progressing Problem: Coping Goal: Ability to cope will improve Outcome: Progressing Problem: Health Behavior Goal: Identification of resources available to assist in meeting health care needs will improve Outcome: Progressing Problem: Skin Integrity Impairment Risk Goal: Mobility will improve Outcome: Progressing Goal: Understanding of ways to prevent future skin breakdown will improve Outcome: Progressing Goal: Nutritional status will improve Outcome: Progressing Goal: Risk for impaired skin integrity will decrease Outcome: Progressing Problem: Fall Risk Goal: Ability to state ways to decrease the risk of falls will improve Outcome: Progressing Goal: Will remain free from falls Outcome: Progressing Goal: Will remain free from injury from falls Outcome: Progressing Problem: Discharge Planning Goal: Understanding discharge needs will improve Outcome: Progressing Problem: Neurosensory Goal: Remains free of injury related to seizures activity Outcome: Progressing Problem: Cardiovascular Goal: Absence of cardiac dysrhythmias or at baseline Outcome: Progressing Goal: Cardiovascular status will improve Outcome: Progressing Goal: Maintains optimal cardiac output and hemodynamic stability Outcome: Progressing Problem: Musculoskeletal Goal: Return mobility to safest level of function Outcome: Progressing Goal: Mobility, ROM and muscle strength will improve Outcome: Progressing Goal: Return ADL status to a safe level of function Outcome: Progressing Goal: Ability to perform activities at highest level will improve Outcome: Progressing Problem: Respiratory Goal: Achieves optimal ventilation and oxygenation Outcome: Progressing Problem: Skin/Tissue Integrity Goal: Skin integrity remains intact Outcome: Progressing Problem: Genitourinary Goal: Absence of urinary retention Outcome: Progressing Problem: Metabolic/Fluid and Electrolytes Goal: Electrolytes maintained within normal limits Outcome: Progressing Goals: Clinical Goals for the Shift: vss, comfort and safety 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 CM started insurance auth. Updated clinicals submitted to [facility] via [employer]. ANYA Weber, Nurse Special Skills Officer [phone] * Plan of Care - Dorie Bates RN - 12/08/2024 12:31 PM CDT Patient had a pacemaker inserted on 12/07. Per care rounds with [employer], patient needs to void prior to d/c and may need be straight cath. Patient had insurance auth for [facility] for SNF placement that on 12/07. CM called the Admission Coordinator at [facility] who stated the patient's bed was given away. She is going to check on availability after lunch and will give CM a call back. Admission Coordinator suggested not starting insurance auth at this time until she knows if a bedis available. ANYA Weber, Nurse Special Skills Officer [phone] * Plan of Care - Baldemar Feliciano - 12/07/2024 11:55 PM CDT Problem: Isolation Lack of Knowledge Goal: Knowledge of risk factors and measures for prevention of condition will improve Outcome: Ongoing Flowsheets (Taken 12/06/2024 022) Knowledge of risk factors and measures for prevention of condition will improve: Discuss risk of infection Discuss good hand hygiene Discuss infection prevention measures Teach significant others hand washing technique Discuss signs and symptoms of infection Use teach-back technique to assess learning Problem: Isolation Physical Regulation Goal: Isolation- Spread of further infection will be prevented Outcome: Ongoing Goal: Isolation- Complications related to the disease process, condition, or treatment will be avoided or minimized. Outcome: Ongoing Problem: Lack of Knowledge Goal: Ability to develop a pain control plan will improve Outcome: Ongoing Problem: Medication Goal: Satisfaction with pain management medication regimen will improve Outcome: Ongoing Problem: Sensory Goal: Ability to identify factors that increase pain levels will improve while working to decrease the patient's pain levels Outcome: Ongoing Problem: Coping Goal: Ability to cope will improve Outcome: Ongoing Problem: Health Behavior Goal: Identification of resources available to assist in meeting health care needs will improve Outcome: Ongoing Problem: Skin Integrity Impairment Risk Goal: Mobility will improve Outcome: Ongoing Goal: Understanding of ways to prevent future skin breakdown will improve Outcome: Ongoing Goal: Nutritional status will improve Outcome: Ongoing Goal: Risk for impaired skin integrity will decrease Outcome: Ongoing Problem: Fall Risk Goal: Ability to state ways to decrease the risk of falls will improve Outcome: Ongoing Goal: Will remain free from falls Outcome: Ongoing Goal: Will remain free from injury from falls Outcome: Ongoing Problem: Discharge Planning Goal: Understanding discharge needs will improve Outcome: Ongoing Problem: Neurosensory Goal: Remains free of injury related to seizures activity Outcome: Ongoing Problem: Cardiovascular Goal: Absence of cardiac dysrhythmias or at baseline Outcome: Ongoing Goal: Cardiovascular status will improve Outcome: Ongoing Goal: Maintains optimal cardiac output and hemodynamic stability Outcome: Ongoing Problem: Musculoskeletal Goal: Return mobility to safest level of function Outcome: Ongoing Goal: Mobility, ROM and muscle strength will improve Outcome: Ongoing Goal: Return ADL status to a safe level of function Outcome: Ongoing Goal: Ability to perform activities at highest level will improve Outcome: Ongoing Problem: Respiratory Goal: Achieves optimal ventilation and oxygenation Outcome: Ongoing Problem: Skin/Tissue Integrity Goal: Skin integrity remains intact Outcome: Ongoing Problem: Genitourinary Goal: Absence of urinary retention Outcome: Ongoing Problem: Metabolic/Fluid and Electrolytes Goal: Electrolytes maintained within normal limits Outcome: Ongoing Goals: Clinical Goals for the Shift: Monitor VSS, maintain safety and comfort [employer]liance [employer] Patient Centered Goal for Treatment: DC patient at baseline * Plan of Care - Baldemar Feliciano - 12/07/2024 12:22 AM CDT Problem: Isolation Lack of Knowledge Goal: Knowledge of risk factors and measures for prevention of condition will improve Outcome: Ongoing Flowsheets (Taken 12/06/2024224) Knowledge of risk factors and measures for prevention of condition will improve: Discuss risk of infection Discuss good hand hygiene Discuss infection prevention measures Teach significant others hand washing technique Discuss signs and symptoms of infection Use teach-back technique to assess learning Problem: Isolation Physical Regulation Goal: Isolation- Spread of further infection will be prevented Outcome: Ongoing Goal: Isolation- Complications related to the disease process, condition, or treatment will be avoided or minimized. Outcome: Ongoing Problem: Isolation Physical Regulation Goal: Isolation- Spread of further infection will be prevented Outcome: Ongoing Goal: Isolation- Complications related to the disease process, condition, or treatment will be avoided or minimized. Outcome: Ongoing Problem: Lack of Knowledge Goal: Ability to develop a pain control plan will improve Outcome: Ongoing Problem: Medication Goal: Satisfaction with pain management medication regimen will improve Outcome: Ongoing Problem: Sensory Goal: Ability to identify factors that increase pain levels will improve while working to decrease the patient's pain levels Outcome: Ongoing Problem: Coping Goal: Ability to cope will improve Outcome: Ongoing Problem: Health Behavior Goal: Identification of resources available to assist in meeting health care needs will improve Outcome: Ongoing Problem: Skin Integrity Impairment Risk Goal: Mobility will improve Outcome: Ongoing Goal: Understanding of ways to prevent future skin breakdown will improve Outcome: Ongoing Goal: Nutritional status will improve Outcome: Ongoing Goal: Risk for impaired skin integrity will decrease Outcome: Ongoing Problem: Fall Risk Goal: Ability to state ways to decrease the risk of falls will improve Outcome: Ongoing Goal: Will remain free from falls Outcome: Ongoing Goal: Will remain free from injury from falls Outcome: Ongoing Problem: Discharge Planning Goal: Understanding discharge needs will improve Outcome: Ongoing Problem: Neurosensory Goal: Remains free of injury related to seizures activity Outcome: Ongoing Problem: Cardiovascular Goal: Absence of cardiac dysrhythmias or at baseline Outcome: Ongoing Goal: Cardiovascular status will improve Outcome: Ongoing Goal: Maintains optimal cardiac output and hemodynamic stability Outcome: Ongoing Problem: Musculoskeletal Goal: Return mobility to safest level of function Outcome: Ongoing Goal: Mobility, ROM and muscle strength will improve Outcome: Ongoing Goal: Return ADL status to a safe level of function Outcome: Ongoing Goal: Ability to perform activities at highest level will improve Outcome: Ongoing Problem: Respiratory Goal: Achieves optimal ventilation and oxygenation Outcome: Ongoing Problem: Skin/Tissue Integrity Goal: Skin integrity remains intact Outcome: Ongoing Problem: Genitourinary Goal: Absence of urinary retention Outcome: Ongoing Problem: Metabolic/Fluid and Electrolytes Goal: Electrolytes maintained within normal limits Outcome: Ongoing Goals: Clinical Goals for the Shift: Monitor VSS, maintain safety and comfort Nursing Home Patient Centered Goal for Treatment: DC patient at baseline * Plan of Care - Dorie Bates RN - 12/06/2024 3:49 PM CDT Patient has insurance auth to go to [facility] for SNF placement that expires on 12/07; however, patient is now scheduled for pacemaker placement on 12/07. Insurance auth will need to be restarted as anticipated d/c is now 12/08. CM notified [facility] via [employer]. PIYUSH Weber-CHARAN, CM Nurse Special Skills Officer [phone] * Plan of Care - Daphne Leon RN - 12/06/2024 7:28 AM CDT Written handoff report provided to 7th floor RN, CM and SW via [employer]. 73yoM with history of HTN, AFib presented to [facility] on 10/25 with weakness after angiogram at [facility] earlier in the day. Angiogram revealed intracranial atherosclerotic disease. CT head negative. CTA with confirmation of prior angio results. 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 He went to CMR then returned to 10th floor with leukocytosis. He was treated and pending discharge to [facility], he was transferred to 7th floor for HR in 120's. Pacemaker had been discussed for yesterday per , but cardiology postponed. He later had an episode of tachycardia, EKG done and he was having difficulty voiding. Also reported, BP Low as charted in high 80's. Pt asymptomatic but verbalized being tired. DR. Tillman, Manager Green called. 500mls of NS bolus ordered. Was planning to call Toya today at [facility] to admit but will now be on hold. Auth good until 12/07. Daphne Leon RN BSN CRRN Special Skills Officer * Plan of Care - Baldemar Feliciano - 12/06/2024 2:25 AM CDT Problem: Isolation Lack of Knowledge Goal: Knowledge of risk factors and measures for prevention of condition will improve Outcome: Ongoing Flowsheets (Taken 12/06/2024 608) Knowledge of risk factors and measures for prevention of condition will improve: Discuss risk of infection Discuss good hand hygiene Discuss infection prevention measures Teach significant others hand washing technique Discuss signs and symptoms of infection Use teach-back technique to assess learning Problem: Isolation Physical Regulation Goal: Isolation- Spread of further infection will be prevented Outcome: Ongoing Goal: Isolation- Complications related to the disease process, condition, or treatment will be avoided or minimized. Outcome: Ongoing Problem: Lack of Knowledge Goal: Ability to develop a pain control plan will improve Outcome: Ongoing Problem: Medication Goal: Satisfaction with pain management medication regimen will improve Outcome: Ongoing Problem: Sensory Goal: Ability to identify factors that increase pain levels will improve while working to decrease the patient's pain levels Outcome: Ongoing Problem: Coping Goal: Ability to cope will improve Outcome: Ongoing Problem: Health Behavior Goal: Identification of resources available to assist in meeting health care needs will improve Outcome: Ongoing Problem: Skin Integrity Impairment Risk Goal: Mobility will improve Outcome: Ongoing Goal: Understanding of ways to prevent future skin breakdown will improve Outcome: Ongoing Goal: Nutritional status will improve Outcome: Ongoing Goal: Risk for impaired skin integrity will decrease Outcome: Ongoing Problem: Fall Risk Goal: Ability to state ways to decrease the risk of falls will improve Outcome: Ongoing Goal: Will remain free from falls Outcome: Ongoing Goal: Will remain free from injury from falls Outcome: Ongoing Problem: Discharge Planning Goal: Understanding discharge needs will improve Outcome: Ongoing Problem: Neurosensory Goal: Remains free of injury related to seizures activity Outcome: Ongoing Problem: Cardiovascular Goal: Absence of cardiac dysrhythmias or at baseline Outcome: Ongoing Goal: Cardiovascular status will improve Outcome: Ongoing Goal: Maintains optimal cardiac output and hemodynamic stability Outcome: Ongoing Problem: Musculoskeletal Goal: Return mobility to safest level of function Outcome: Ongoing Goal: Mobility, ROM and muscle strength will improve Outcome: Ongoing Goal: Return ADL status to a safe level of function Outcome: Ongoing Goal: Ability to perform activities at highest level will improve Outcome: Ongoing Problem: Respiratory Goal: Achieves optimal ventilation and oxygenation Outcome: Ongoing Problem: Skin/Tissue Integrity Goal: Skin integrity remains intact Outcome: Ongoing Problem: Genitourinary Goal: Absence of urinary retention Outcome: Ongoing Problem: Metabolic/Fluid and Electrolytes Goal: Electrolytes maintained within normal limits Outcome: Ongoing Goals: Clinical Goals for the Shift: Monitor VSS, maintain safety and comfort 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 No Details of Transportation [facility] Discharge Transportation Communication Mode of transport has been discussed with the patient/family. All are agreeable to the plan and understand their responsibilities to ensure the safe transfer. No further CM/SW intervention is anticipated at this time. Post Acute Care Plan Post Acute Care Needs Identified Yes Home Care Services N/A OP Services N/A DME Resume Durable Medical Equipment Wheelchair;Walker (wheeled) Post Acute Care Facility Yes Referral Status Accepted Accepted Post Acute Care Location and Contact [facility] CM spoke with Barb and she said she spoke with someone at [facility] saying he had been accepted. Authorization obtained. Patient was having cardiac concerns. Attending was going to follow up with cardiology and possible discharge tomorrow. CM will continue to follow and assist with discharge planning as needed. Daphne Leon RN BSN CRRN Special Skills Officer * Plan of Care - Seble Quintanilla BSW - 12/05/2024 3:31 PM CDT Pt discussed in IDR today. Pt possibly to get a pace maker before discharging to SNF. Follow up with [facility] to see what the plan will be going forward. Pt auth in for SNF until 12-07-24. SW will continue to follow. * Plan of Care - Wendy Jimenez RN - 12/05/2024 3:22 PM CDT Goals: Clinical Goals for the Shift: vs's, labs, promote rest and ocmfort. Summary: Patient is alert and oriented x4. vs's,labs, monitored, on RA, medicated for pain as needed, pt verbalized having some relief upon reassessment. Biolpia. Diet resumed as no plan for pace maker. Pt need assistance feeding . Up with [facility]. Therapy in to see pt, up in the chair. Episode of tachy cardia. Cardiology contacted, . Stat EKG ordered. Showed a flutter with tachy /RVR. Beta [place] resumed . MD/cardiology made aware of EKG. Family visited, updated. Pt unable to urinated, bladder scan >398. Straight cath done. Removed 650 mls. Hospitality doesn't want coelho cath as of now. Will cont to monitor 1625: BP Low as charted in high 80's. Pt asymptomatic but verbalized being tired. DR. Tillman, Manager Green called. 500mls of NS bolus ordered. Pt to be transfer on tele. Order placed. Family made aware of transfer to be. Waiting for bed availability. 1843: BP improved post 500mls of bolus. Pt was transfer back in bed. Another bladder scan under 120mls. . Problem: Isolation Lack of Knowledge Goal: Knowledge of risk factors and measures for prevention of condition will improve Outcome: Progressing Problem: Isolation Physical Regulation Goal: Isolation- Spread of further infection will be prevented Outcome: Progressing Goal: Isolation- Complications related to the disease process, condition, or treatment will be avoided or minimized. Outcome: Progressing Problem: Lack of Knowledge Goal: Ability to develop a pain control plan will improve Outcome: Progressing Problem: Medication Goal: Satisfaction with pain management medication regimen will improve Outcome: Progressing Problem: Sensory Goal: Ability to identify factors that increase pain levels will improve while working to decrease the patient's pain levels Outcome: Progressing Problem: Coping Goal: Ability to cope will improve Outcome: Progressing Problem: Health Behavior Goal: Identification of resources available to assist in meeting health care needs will improve Outcome: Progressing Problem: Skin Integrity Impairment Risk Goal: Mobility will improve Outcome: Progressing Goal: Understanding of ways to prevent future skin breakdown will improve Outcome: Progressing Goal: Nutritional status will improve Outcome: Progressing Goal: Risk for impaired skin integrity will decrease Outcome: Progressing Problem: Fall Risk Goal: Ability to state ways to decrease the risk of falls will improve Outcome: Progressing Goal: Will remain free from falls Outcome: Progressing Goal: Will remain free from injury from falls Outcome: Progressing Problem: Discharge Planning Goal: Understanding discharge needs will improve Outcome: Progressing Problem: Neurosensory Goal: Remains free of injury related to seizures activity Outcome: Progressing Problem: Cardiovascular Goal: Absence of cardiac dysrhythmias or at baseline Outcome: Progressing Goal: Cardiovascular status will improve Outcome: Progressing Goal: Maintains optimal cardiac output and hemodynamic stability Outcome: Progressing Problem: Musculoskeletal Goal: Return mobility to safest level of function Outcome: Progressing Goal: Mobility, ROM and muscle strength will improve Outcome: Progressing Goal: Return ADL status to a safe level of function Outcome: Progressing Goal: Ability to perform activities at highest level will improve Outcome: Progressing Problem: Respiratory Goal: Achieves optimal ventilation and oxygenation Outcome: Progressing Problem: Skin/Tissue Integrity Goal: Skin integrity remains intact Outcome: Progressing Problem: Genitourinary Goal: Absence of urinary retention Outcome: Progressing Problem: Metabolic/Fluid and Electrolytes Goal: Electrolytes maintained within normal limits Outcome: Progressing * Plan of Care - Daphne Leon RN - 12/05/2024 7:50 AM CDT 12/05/24 0747 Referral Accepted Level of Care SNF Facility Name [facility] Facility NPI # [id number] Provider Name/NPI # Dr. 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 Outcome: Progressing Problem: Lack of Knowledge Goal: Ability to develop a pain control plan will improve Outcome: Progressing Problem: Medication Goal: Satisfaction with pain management medication regimen will improve Outcome: Progressing Problem: Sensory Goal: Ability to identify factors that increase pain levels will improve while working to decrease the patient's pain levels Outcome: Progressing Problem: Coping Goal: Ability to cope will improve Outcome: Progressing Problem: Health Behavior Goal: Identification of resources available to assist in meeting health care needs will improve Outcome: Progressing Problem: Skin Integrity Impairment Risk Goal: Mobility will improve Outcome: Progressing Goal: Understanding of ways to prevent future skin breakdown will improve Outcome: Progressing Goal: Nutritional status will improve Outcome: Progressing Goal: Risk for impaired skin integrity will decrease Outcome: Progressing Problem: Fall Risk Goal: Ability to state ways to decrease the risk of falls will improve Outcome: Progressing Goal: Will remain free from falls Outcome: Progressing Goal: Will remain free from injury from falls Outcome: Progressing Problem: Discharge Planning Goal: Understanding discharge needs will improve Outcome: Progressing Problem: Neurosensory Goal: Remains free of injury related to seizures activity Outcome: Progressing Problem: Cardiovascular Goal: Absence of cardiac dysrhythmias or at baseline Outcome: Progressing Goal: Cardiovascular status will improve Outcome: Progressing Goal: Maintains optimal cardiac output and hemodynamic stability Outcome: Progressing Problem: Musculoskeletal Goal: Return mobility to safest level of function Outcome: Progressing Goal: Mobility, ROM and muscle strength will improve Outcome: Progressing Goal: Return ADL status to a safe level of function Outcome: Progressing Goal: Ability to perform activities at highest level will improve Outcome: Progressing Problem: Respiratory Goal: Achieves optimal ventilation and oxygenation Outcome: Progressing Problem: Skin/Tissue Integrity Goal: Skin integrity remains intact Outcome: Progressing Problem: Genitourinary Goal: Absence of urinary retention Outcome: Progressing Problem: Metabolic/Fluid and Electrolytes Goal: Electrolytes maintained within normal limits Outcome: Progressing Goals: Clinical Goals for the Shift: comfort, safety, stable vs Summary: * Plan of Care - Cortney Love RN - 12/04/2024 2:28 PM CDT Goals: Clinical Goals for the Shift: comfort, safety, stable vs Summary: Patient resting in bed with no complaints at this time, vs stable. Plan of care continues.Spoke with MD regarding 5 Sec pause on tele as well as need for straight cathing patient continuously. Problem: Isolation Lack of Knowledge Goal: Knowledge of risk factors and measures for prevention of condition will improve Outcome: Ongoing Problem: Isolation Physical Regulation Goal: Isolation- Spread of further infection will be prevented Outcome: Ongoing Goal: Isolation- Complications related to the disease process, condition, or treatment will be avoided or minimized. Outcome: Ongoing Problem: Lack of Knowledge Goal: Ability to develop a pain control plan will improve Outcome: Ongoing Problem: Medication Goal: Satisfaction with pain management medication regimen will improve Outcome: Ongoing Problem: Sensory Goal: Ability to identify factors that increase pain levels will improve while working to decrease the patient's pain levels Outcome: Ongoing Problem: Coping Goal: Ability to cope will improve Outcome: Ongoing Problem: Health Behavior Goal: Identification of resources available to assist in meeting health care needs will improve Outcome: Ongoing Problem: Skin Integrity Impairment Risk Goal: Mobility will improve Outcome: Ongoing Goal: Understanding of ways to prevent future skin breakdown will improve Outcome: Ongoing Goal: Nutritional status will improve Outcome: Ongoing Goal: Risk for impaired skin integrity will decrease Outcome: Ongoing Problem: Fall Risk Goal: Ability to state ways to decrease the risk of falls will improve Outcome: Ongoing Goal: Will remain free from falls Outcome: Ongoing Goal: Will remain free from injury from falls Outcome: Ongoing Problem: Discharge Planning Goal: Understanding discharge needs will improve Outcome: Ongoing Problem: Neurosensory Goal: Remains free of injury related to seizures activity Outcome: Ongoing Problem: Cardiovascular Goal: Absence of cardiac dysrhythmias or at baseline Outcome: Ongoing Goal: Cardiovascular status will improve Outcome: Ongoing Goal: Maintains optimal cardiac output and hemodynamic stability Outcome: Ongoing Problem: Musculoskeletal Goal: Return mobility to safest level of function Outcome: Ongoing Goal: Mobility, ROM and muscle strength will improve Outcome: Ongoing Goal: Return ADL status to a safe level of function Outcome: Ongoing Goal: Ability to perform activities at highest level will improve Outcome: Ongoing Problem: Respiratory Goal: Achieves optimal ventilation and oxygenation Outcome: Ongoing Problem: Skin/Tissue Integrity Goal: Skin integrity remains intact Outcome: Ongoing Problem: Genitourinary Goal: Absence of urinary retention Outcome: Ongoing Problem: Metabolic/Fluid and Electrolytes Goal: Electrolytes maintained within normal limits Outcome: Ongoing * Plan of Care - Dylanbernard Manish - 12/03/2024 11:05 PM CDT Goals: Clinical Goals for the Shift: safety and comfort Summary: Problem: Isolation Lack of Knowledge Goal: Knowledge of risk factors and measures for prevention of condition will improve Outcome: Progressing Problem: Isolation Physical Regulation Goal: Isolation- Spread of further infection will be prevented Outcome: Progressing Goal: Isolation- Complications related to the disease process, condition, or treatment will be avoided or minimized. Outcome: Progressing Problem: Lack of Knowledge Goal: Ability to develop a pain control plan will improve Outcome: Progressing Problem: Medication Goal: Satisfaction with pain management medication regimen will improve Outcome: Progressing Problem: Sensory Goal: Ability to identify factors that increase pain levels will improve while working to decrease the patient's pain levels Outcome: Progressing Problem: Coping Goal: Ability to cope will improve Outcome: Progressing Problem: Health Behavior Goal: Identification of resources available to assist in meeting health care needs will improve Outcome: Progressing Problem: Skin Integrity Impairment Risk Goal: Mobility will improve Outcome: Progressing Goal: Understanding of ways to prevent future skin breakdown will improve Outcome: Progressing Goal: Nutritional status will improve Outcome: Progressing Goal: Risk for impaired skin integrity will decrease Outcome: Progressing Problem: Fall Risk Goal: Ability to state ways to decrease the risk of falls will improve Outcome: Progressing Goal: Will remain free from falls Outcome: Progressing Goal: Will remain free from injury from falls Outcome: Progressing Problem: Discharge Planning Goal: Understanding discharge needs will improve Outcome: Progressing Problem: Neurosensory Goal: Remains free of injury related to seizures activity Outcome: Progressing Problem: Cardiovascular Goal: Absence of cardiac dysrhythmias or at baseline Outcome: Progressing Goal: Cardiovascular status will improve Outcome: Progressing Problem: Musculoskeletal Goal: Return mobility to safest level of function Outcome: Progressing Goal: Mobility, ROM and muscle strength will improve Outcome: Progressing * Plan of [place] - Jason Koch RN - 12/03/2024 4:35 PM CDT Goals: Clinical Goals for the Shift: safety and comfort Summary: Problem: Isolation Lack of Knowledge Goal: Knowledge of risk factors and measures for prevention of condition will improve Outcome: Progressing Problem: Isolation Physical Regulation Goal: Isolation- Spread of further infection will be prevented Outcome: Progressing Goal: Isolation- Complications related to the disease process, condition, or treatment will be avoided or minimized. Outcome: Progressing Problem: Lack of Knowledge Goal: Ability to develop a pain control plan will improve Outcome: Progressing Problem: Sensory Goal: Ability to identify factors that increase pain levels will improve while working to decrease the patient's pain levels Outcome: Progressing Problem: Medication Goal: Satisfaction with pain management medication regimen will improve Outcome: Progressing Problem: Skin Integrity Impairment Risk Goal: Mobility will improve Outcome: Progressing Goal: Understanding of ways to prevent future skin breakdown will improve Outcome: Progressing Goal: Nutritional status will improve Outcome: Progressing Goal: Risk for impaired skin integrity will decrease Outcome: Progressing Problem: Health Behavior Goal: Identification of resources available to assist in meeting health care needs will improve Outcome: Progressing Problem: Fall Risk Goal: Ability to state ways to decrease the risk of falls will improve Outcome: Progressing Goal: Will remain free from falls Outcome: Progressing Goal: Will remain free from injury from falls Outcome: Progressing Problem: Discharge Planning Goal: Understanding discharge needs will improve Outcome: Progressing Problem: Neurosensory Goal: Remains free of injury related to seizures activity Outcome: Progressing * Plan of Karl Sawant LMSW - 12/03/2024 11:31 AM CDT CARE INFORMATION ASSOCIATE received a call from intake at [facility]. They cannot accept over the weekend due to pt needing auth. They will have to follow up on Thursday. PAPITO Pedraza Commercial Loan Assistant Case Management 12/03/24 11:32 AM * Plan of Care - Karl Jones LMSW - 12/03/2024 11:06 AM CDT CARE INFORMATION ASSOCIATE spoke to pt's spouse, Barb ([phone]). She indicated that she has not seen [place] due to not being able to secure a tour. Her only choice now is [facility]. CARE INFORMATION ASSOCIATE spoke to Yun at [facility] ([phone]). She indicated that admissions is not available on the weekend, but she would try and get a hold of someone to assist. She will call CARE INFORMATION ASSOCIATE back. PAPITO Pedraza Commercial Loan Assistant Case Management 12/03/24 11:28 AM * Plan of Care - Echo Loredo, RN - 12/03/2024 4:49 AM CDT Goals: Clinical Goals for the Shift: plan of care to be provided as ordered Summary: Problem: Coping Goal: Ability to cope will improve Outcome: Ongoing Flowsheets (Taken 12/03/2024447) Ability to cope will Improve: Encourage vebalization of feelings surrounding pain Provide emotional support Problem: Fall Risk Goal: Ability to state ways to decrease the risk of falls will improve Outcome: Ongoing Flowsheets (Taken 12/03/2024447) Ability to state ways to decrease the risk of falls will improve: Teach fall prevention measures Teach information regarding appropriate enviornmental changes Goal: Will remain free from falls Outcome: Ongoing Flowsheets (Taken 12/03/2024447) Will remain free from falls: Assess risk factors for falls Collaborate with other disciplines Implement fall prevention measures Problem: Discharge Planning Goal: Understanding discharge needs will improve Outcome: Ongoing Flowsheets (Taken 12/03/2024447) Understanding of discharge needs will improve: Discuss information regarding discharge instructions Identify discharge learning needs (meds, wound care, etc.) * Plan of Care - Tatianna Berman RN - 12/02/2024 7:59 AM CDT Problem: Isolation Lack of Knowledge Goal: Knowledge of risk factors and measures for prevention of condition will improve 12/02/2024758 by Tatianna Berman RN Outcome: Progressing 12/02/2024758 by Tatianna Berman RN Outcome: Progressing Problem: Isolation Physical Regulation Goal: Isolation- Spread of further infection will be prevented 12/02/2024758 by aTtianna Berman RN Outcome: Progressing Goal: Isolation- Complications related to the disease process, condition, or treatment will be avoided or minimized. 12/02/2024758 by Tatianna Berman RN Outcome: Progressing Problem: Lack of Knowledge Goal: Ability to develop a pain control plan will improve 12/02/2024758 by Tatianna Berman RN Outcome: Progressing Problem: Medication Goal: Satisfaction with pain management medication regimen will improve 12/02/2024758 by Tatianna Berman RN Outcome: Progressing Problem: Sensory Goal: Ability to identify factors that increase pain levels will improve while working to decrease the patient's pain levels 12/02/2024758 by Tatianna Berman RN Outcome: Progressing Problem: Coping Goal: Ability to cope will improve 12/02/2024758 by Tatianna Berman RN Outcome: Progressing Problem: Health Behavior Goal: Identification of resources available to assist in meeting health care needs will improve 12/02/2024758 by Tatianna Berman RN Outcome: Progressing Problem: Skin Integrity Impairment Risk Goal: Mobility will improve 12/02/2024758 by Tatianna Berman RN Outcome: Progressing Goal: Understanding of ways to prevent future skin breakdown will improve 12/02/2024758 by Tatianna Berman RN Outcome: Progressing Goal: Nutritional status will improve 12/02/2024758 by Tatianna Berman RN Outcome: Progressing Goal: Risk for impaired skin integrity will decrease 12/02/2024758 by Tatianna Berman RN Outcome: Progressing Problem: Fall Risk Goal: Ability to state ways to decrease the risk of falls will improve 12/02/2024758 by Tatianna Berman RN Outcome: Progressing 12/02/2024758 by Tatianna Berman RN Outcome: Not Progressing Goal: Will remain free from falls 12/02/2024758 by Tatianna Berman RN Outcome: Progressing Goal: Will remain free from injury from falls 12/02/2024758 by Tatianna Berman RN Outcome: Progressing Problem: Discharge Planning Goal: Understanding discharge needs will improve 12/02/2024758 by Tatianna Berman RN Outcome: Progressing Problem: Neurosensory Goal: Remains free of injury related to seizures activity 12/02/2024758 by Tatianna Berman RN Outcome: Progressing Problem: Cardiovascular Goal: Absence of cardiac dysrhythmias or at baseline 12/02/2024758 by Tatianna Berman RN Outcome: Progressing Goal: Cardiovascular status will improve 12/02/2024758 by Tatianna Berman RN Outcome: Progressing Problem: Musculoskeletal Goal: Return mobility to safest level of function 12/02/2024758 by Tatianna Berman RN Outcome: Progressing Goal: Mobility, ROM and muscle strength will improve 12/02/2024758 by Tatianna Berman RN Outcome: Progressing Goals: Clinical Goals for the Shift: plan of care to be provided as ordered * Plan of Care - Echo Loredo RN - 12/02/2024 3:28 AM CDT Goals: Clinical Goals for the Shift: VSS, comfort measures, safety Summary: Problem: Coping Goal: Ability to cope will improve Outcome: Ongoing Flowsheets (Taken 12/02/2024 0328) Ability to cope will Improve: Encourage vebalization of feelings surrounding pain Provide emotional support Assess beliefs of pain * Plan of Care - Daphne Leon RN - 12/01/2024 4:58 PM CDT 12/01/24 0715 Discharge Planning Support System Spouse/Significant Other Community Resources (NA) Therapy needed None Anticipated discharge level of care alf facility (short term care) Does the patient need discharge transport arranged? Yes Type of Transportation Ambulance/EMS Private Vehicle Information Family Has discharge transport been arranged? No Details of Transportation [facility] Discharge Transportation Communication Mode of transport has been discussed with the patient/family. All are agreeable to the plan and understand their responsibilities to ensure the safe transfer. No further CM/SW intervention is anticipated at this time. Post Acute Care Plan Post Acute Care Needs Identified Yes Home Care Services N/A OP Services N/A DME Resume Durable Medical Equipment Cane (single prong);Wheelchair;Walker (wheeled) Post Acute Care Facility Yes (pending) CM discussed discharge plan with spouse Nicole. He has been denied IPR and she said she is not ableto provide the level of care he needs at home. She has been working with SW to find placement. Referrals have been sent to a few choice facilities. CM will continue to follow and assist with discharge planning as needed. Daphne Leon RN BSN CRRN Special Skills Officer * Plan of Care - Seble Quintanilla BSW - 12/01/2024 1:03 PM CDT SW spoke with Pt's , Nicole to get an update on what facility she would like Pt to go to if Pt not able to go to Acute Rehab. SW was told that choice at this time would be [facility] and [facility]. Pt's was going to tour some of the places now to see if additional referrals need to be submitted. SW will continue to assist and follow. * Plan of Care - Elsa Bowens Rhoda - 12/01/2024 10:16 AM CDT Problem: Isolation Physical Regulation Goal: Isolation- Spread of further infection will be prevented Outcome: Progressing Problem: Skin Integrity Impairment Risk Goal: Mobility will improve Outcome: Progressing Goal: Nutritional status will improve Outcome: Progressing Goals: Clinical Goals for the Shift: VSS, comfort measures, safety Summary: * Plan of Care - Manish Levy - 12/01/2024 2:08 AM CDT Goals: Clinical Goals for the Shift: VSS, comfort measures, safety Summary: Problem: Isolation Lack of Knowledge Goal: Knowledge of risk factors and measures for prevention of condition will improve Outcome: Progressing Problem: Isolation Physical Regulation Goal: Isolation- Spread of further infection will be prevented Outcome: Progressing Goal: Isolation- Complications related to the disease process, condition, or treatment will be avoided or minimized. Outcome: Progressing Problem: Lack of Knowledge Goal: Ability to develop a pain control plan will improve Outcome: Progressing Problem: Medication Goal: Satisfaction with pain management medication regimen will improve Outcome: Progressing Problem: Sensory Goal: Ability to identify factors that increase pain levels will improve while working to decrease the patient's pain levels Outcome: Progressing Problem: Coping Goal: Ability to cope will improve Outcome: Progressing Problem: Health Behavior Goal: Identification of resources available to assist in meeting health care needs will improve Outcome: Progressing Problem: Skin Integrity Impairment Risk Goal: Mobility will improve Outcome: Progressing Goal: Understanding of ways to prevent future skin breakdown will improve Outcome: Progressing Goal: Nutritional status will improve Outcome: Progressing Goal: Risk for impaired skin integrity will decrease Outcome: Progressing Problem: Fall Risk Goal: Ability to state ways to decrease the risk of falls will improve Outcome: Progressing Goal: Will remain free from falls Outcome: Progressing Goal: Will remain free from injury from falls Outcome: Progressing Problem: Discharge Planning Goal: Understanding discharge needs will improve Outcome: Progressing * Plan of Inez - Daphne Leon RN - 11/30/2024 4:02 PM CDT BREN spoke with Ayad to discuss discharge plan. There is a chance he may not be approved to returnto [facility]. If so what is plan B? He said he wanted to go home with HH but his Barb said she would not be able to provide the care he needs. CM suggested they look of SNF listing given and Barb would like to [facility] to submit for auth. Referral sent. CM will continue to follow and assist with discharge planning as needed. Daphne Leon RN BSN CRRN Special Skills Officer * Provider Query - Son Card MD - 11/30/2024 3:27 PM CDT Specify if the diagnosis SEPSIS has been confirmed or ruled out after study. _x__ Diagnosis confirmed ___ Diagnosis ruled out ___ Other explanation of clinical findings, specify below Additional Provider Response: Clinical Indicators/Treatments: 74 y/o hx of cva, cad s/p cabg, afib, HTN, direct admit from [facility] , with fevers, wbc 33, incontinence of urine, and fatigue Tx to 10 floor - 100.8, 113, 21, 173/63 wbc 33.5, H/H 11.3/33.8 11/28 IM PN - Fever weakness with possible underlying infection of unclear etiology. On cefepime andvancomycin for now. BC pending , resp panel negative , urine with no UTI. CXR with no clear infiltrates. 11/28 ID PN - Low-grade fever, leukocytosis, unclear source Recent history of UTI treated repeat UA negative References: From the ICD-10-CM Coding Guidelines, use of terms such as likely, suspected, possible, or probable(associated with a specific diagnosis that is being evaluated, monitored, or treated as if it exists) are acceptable and can be coded in the inpatient setting when documented at the time of discharge. This documentation will become part of the patient???s medical record. * Plan of Care - Tila Simmons RN - 11/30/2024 11:10 AM CDT Problem: Isolation Lack of Knowledge Goal: Knowledge of risk factors and measures for prevention of condition will improve Outcome: Progressing Problem: Isolation Physical Regulation Goal: Isolation- Spread of further infection will be prevented Outcome: Progressing Goal: Isolation- Complications related to the disease process, condition, or treatment will be avoided or minimized. Outcome: Progressing Problem: Lack of Knowledge Goal: Ability to develop a pain control plan will improve Outcome: Progressing Problem: Medication Goal: Satisfaction with pain management medication regimen will improve Outcome: Progressing Problem: Sensory Goal: Ability to identify factors that increase pain levels will improve while working to decrease the patient's pain levels Outcome: Progressing Problem: Coping Goal: Ability to cope will improve Outcome: Progressing Problem: Health Behavior Goal: Identification of resources available to assist in meeting health care needs will improve Outcome: Progressing Problem: Skin Integrity Impairment Risk Goal: Mobility will improve Outcome: Progressing Goal: Understanding of ways to prevent future skin breakdown will improve Outcome: Progressing Goal: Nutritional status will improve Outcome: Progressing Goal: Risk for impaired skin integrity will decrease Outcome: Progressing Problem: Fall Risk Goal: Ability to state ways to decrease the risk of falls will improve Outcome: Progressing Goal: Will remain free from falls Outcome: Progressing Goal: Will remain free from injury from falls Outcome: Progressing Problem: Discharge Planning Goal: Understanding discharge needs will improve Outcome: Progressing Goals: Clinical Goals for the Shift: plan of care to be provided as ordered Summary: Pt resting in chair at this time. Pt A&O4 with forgetfulness at baseline, breathing even and unlabored,no apparent distress noted at this time. * Plan of Care - Seble Quintanilla BSW - 11/30/2024 9:35 AM CDT ROSS spoke with Pt's , Nicole to discuss discharge planning and emt intermediate goals for Pt. Per Pt and Pt's the plan is to return to Acute Rehab. SW was told that CMR is working on getting Pt a specialized WC. Though if Pt is not accepted back to Acute Rehab or insurnace denies, Pt's statesthat Pt will have to go to SNF. This SW will send out choice to Pt's by email at [email or web address]. * Plan of Care - Mukesh Lange - 11/29/2024 11:54 PM CDT Problem: Isolation Lack of Knowledge Goal: Knowledge of risk factors and measures for prevention of condition will improve Outcome: Progressing Problem: Isolation Physical Regulation Goal: Isolation- Spread of further infection will be prevented Outcome: Progressing Goal: Isolation- Complications related to the disease process, condition, or treatment will be avoided or minimized. Outcome: Progressing Problem: Lack of Knowledge Goal: Ability to develop a pain control plan will improve Outcome: Progressing Problem: Medication Goal: Satisfaction with pain management medication regimen will improve Outcome: Progressing Problem: Sensory Goal: Ability to identify factors that increase pain levels will improve while working to decrease the patient's pain levels Outcome: Progressing Problem: Coping Goal: Ability to cope will improve Outcome: Progressing Problem: Health Behavior Goal: Identification of resources available to assist in meeting health care needs will improve Outcome: Progressing Problem: Skin Integrity Impairment Risk Goal: Mobility will improve Outcome: Progressing Goal: Understanding of ways to prevent future skin breakdown will improve Outcome: Progressing Goal: Nutritional status will improve Outcome: Progressing Goal: Risk for impaired skin integrity will decrease Outcome: Progressing Problem: Fall Risk Goal: Ability to state ways to decrease the risk of falls will improve Outcome: Progressing Goal: Will remain free from falls Outcome: Progressing Goal: Will remain free from injury from falls Outcome: Progressing Problem: Discharge Planning Goal: Understanding discharge needs will improve Outcome: Progressing Goals: Clinical Goals for the Shift: plan of care to be provided as ordered Summary: pt was in rehab and was not excelling so back to the neuro floor for workup * Plan of Care - Ray Osei RN - 11/29/2024 10:15 AM CDT Problem: Isolation Lack of Knowledge Goal: Knowledge of risk factors and measures for prevention of condition will improve Outcome: Progressing Problem: Isolation Physical Regulation Goal: Isolation- Spread of further infection will be prevented Outcome: Progressing Goal: Isolation- Complications related to the disease process, condition, or treatment will be avoided or minimized. Outcome: Progressing Problem: Lack of Knowledge Goal: Ability to develop a pain control plan will improve Outcome: Progressing Problem: Medication Goal: Satisfaction with pain management medication regimen will improve Outcome: Progressing Problem: Sensory Goal: Ability to identify factors that increase pain levels will improve while working to decrease the patient's pain levels Outcome: Progressing Problem: Coping Goal: Ability to cope will improve Outcome: Progressing Problem: Health Behavior Goal: Identification of resources available to assist in meeting health care needs will improve Outcome: Progressing Goals: Clinical Goals for the Shift: plan of care to be provided as ordered * Plan of Care - Nazario Mukesh - 11/29/2024 2:45 AM CDT Problem: Isolation Lack of Knowledge Goal: Knowledge of risk factors and measures for prevention of condition will improve Outcome: Progressing Problem: Isolation Physical Regulation Goal: Isolation- Spread of further infection will be prevented Outcome: Progressing Goal: Isolation- Complications related to the disease process, condition, or treatment will be avoided or minimized. Outcome: Progressing Problem: Lack of Knowledge Goal: Ability to develop a pain control plan will improve Outcome: Progressing Problem: Medication Goal: Satisfaction with pain management medication regimen will improve Outcome: Progressing Problem: Sensory Goal: Ability to identify factors that increase pain levels will improve while working to decrease the patient's pain levels Outcome: Progressing Problem: Coping Goal: Ability to cope will improve Outcome: Progressing Problem: Health Behavior Goal: Identification of resources available to assist in meeting health care needs will improve Outcome: Progressing Problem: Skin Integrity Impairment Risk Goal: Mobility will improve Outcome: Progressing Goal: Understanding of ways to prevent future skin breakdown will improve Outcome: Progressing Goal: Nutritional status will improve Outcome: Progressing Goal: Risk for impaired skin integrity will decrease Outcome: Progressing Problem: Fall Risk Goal: Ability to state ways to decrease the risk of falls will improve Outcome: Progressing Goal: Will remain free from falls Outcome: Progressing Goal: Will remain free from injury from falls Outcome: Progressing Problem: Discharge Planning Goal: Understanding discharge needs will improve Outcome: Progressing Goals: Clinical Goals for the Shift: plan of care to be provided as ordered Summary: Problem: Isolation Lack of Knowledge Goal: Knowledge of risk factors and measures for prevention of condition will improve Outcome: Progressing Problem: Isolation Physical Regulation Goal: Isolation- Spread of further infection will be prevented Outcome: Progressing Goal: Isolation- Complications related to the disease process, condition, or treatment will be avoided or minimized. Outcome: Progressing Problem: Lack of Knowledge Goal: Ability to develop a pain control plan will improve Outcome: Progressing Problem: Medication Goal: Satisfaction with pain management medication regimen will improve Outcome: Progressing Problem: Sensory Goal: Ability to identify factors that increase pain levels will improve while working to decrease the patient's pain levels Outcome: Progressing Problem: Coping Goal: Ability to cope will improve Outcome: Progressing Problem: Health Behavior Goal: Identification of resources available to assist in meeting health care needs will improve Outcome: Progressing Problem: Skin Integrity Impairment Risk Goal: Mobility will improve Outcome: Progressing Goal: Understanding of ways to prevent future skin breakdown will improve Outcome: Progressing Goal: Nutritional status will improve Outcome: Progressing Goal: Risk for impaired skin integrity will decrease Outcome: Progressing Problem: Fall Risk Goal: Ability to state ways to decrease the risk of falls will improve Outcome: Progressing Goal: Will remain free from falls Outcome: Progressing Goal: Will remain free from injury from falls Outcome: Progressing Problem: Discharge Planning Goal: Understanding discharge needs will improve Outcome: Progressing * Initial Assessments - Cynthia Gamboa RN - 11/28/2024 1:15 PM CDT BREN Initial Assessment Interview Note Information Obtained From: Patient (11/28/241314) Admission Source: [facility] Impression: CM met with patient at bedside and completed initial discharge planning. Demographics were verified with the use of the facesheet. Patient was transferred from [facility] to the floor due to leukocytosis. He lives at home with his , Barb Shipman. He requires maximum assistance with his ADLs. He is using a wheelchair. He has no active home care services. His goal is to return to [facility] to finish rehab stay. Plan Includes: Discharge back to [facility] when stable. PT/OT consults. Send return referral Additional Information: None Primary Source of Transportation: Does the patient need discharge transport arranged?: Yes Has discharge transport been arranged?: No Details of Transportation: Patients family will provide transport at discharge (11/28/24 1315) Health Insurance Coverage: [employer] Prescription Coverage: [employer] Medicare Pharmacy: [facility]/pharmacy #[id number] - [place], [place] - [address] [facility] [address] [facility] - [place], [place] - [address] [facility] [address] [facility] [address] Primary Care Provider: Rqauel Callejas MD Prior to Admission: Functional Status: Maximum assist with ADLs Primary Caregiver: Self Support System: Spouse/Significant Other, Children When was the last time you have seen your PCP?: Within last 6 months Home Care Services: No Outpatient Services: No Durable Medical Equipment: Walker (wheeled), Wheelchair, Cane (single prong) Living Arrangements: Spouse/significant other Type of Residence: Private residence Steps in home?: Yes, Outside of home, Yes, Inside home Number of steps inside: 10 steps Number of steps outside: 4 steps Medication management: Independent (11/28/24 1315) SDOH: Transportation: In the past 12 months, has lack of transportation kept you from medical appointments or from getting medications?: No In the past 12 months, has lack of transportation kept you from meetings, work, or from getting things needed for daily living?: No (11/28/24 1340) Financial Resource: How hard is it for you to pay for the very basics like food, housing, medical care, and heating?: Not hard at all (11/28/24 1340) Housing: In the last 12 months, was there a time when you were not able to pay the mortgage or rent on time?: No In the past 12 months, how many times have you moved where you were living?: 0 At any time in the past 12 months, were you homeless or living in a snf (including now)?: No (11/28/24 1341) Utilities: No, (11/28/24 1340) Social Connections: In a typical week, how many times do you talk on the phone with family, friends, or neighbors?: Twice a week How often do you get together with friends or relatives?: Twice a week How often do you attend temple or hindu services?: Never Do you belong to any clubs or organizations such as temple groups, unions, fraternal or athletic groups, or school groups?: No How often do you attend meetings of the clubs or organizations you belong to?: Never Are you , , , , never , or living with a partner?: (11/28/24 1340) Food Insecurity: Within the past 12 months, you worried that your food would run out before you got the money to buymore.: Never true Within the past 12 months, the food you bought just didn't last and you didn't have money to get more.: Never true (11/28/24 1340) Behavioral Health Services: Behavioral Health Services: No (11/28/241314) Anticipated Level of Care: Anticipated discharge level of care: Acute Rehab Pt/Family agrees with Anticipated Level of Care: Yes (11/28/241314) Patient expects to be Discharged to: Acute Rehab, (11/28/241314) Patient's Identified Problem/Goal Problem: Ensure acute medical needs are met and that patient has a safe discharge plan. Goal: Secure a discharge plan that patient/family are agreeable with and ensure patient has continuum of care. Case management will follow for discharge planning and send referrals as needed. Cynthia PICKETT, army manager * Initial Assessments - Seble Quintanilla BSW - 11/28/2024 9:37 AM CDT SW met with Pt to complete the SW assessment and come up with a discharge plan. Lab and imaging both came up to see Pt. This SW ill return at a later time and complete assessment. * Plan of Care - David Rendon RN - 11/28/2024 8:34 AM CDT Goals: Clinical Goals for the Shift: plan of care to be provided as ordered Summary: Problem: Isolation Lack of Knowledge Goal: Knowledge of risk factors and measures for prevention of condition will improve Outcome: Ongoing Problem: Isolation Physical Regulation Goal: Isolation- Spread of further infection will be prevented Outcome: Ongoing Goal: Isolation- Complications related to the disease process, condition, or treatment will be avoided or minimized. Outcome: Ongoing Problem: Lack of Knowledge Goal: Ability to develop a pain control plan will improve Outcome: Ongoing Problem: Medication Goal: Satisfaction with pain management medication regimen will improve Outcome: Ongoing Problem: Sensory Goal: Ability to identify factors that increase pain levels will improve while working to decrease the patient's pain levels Outcome: Ongoing Problem: Coping Goal: Ability to cope will improve Outcome: Ongoing Problem: Health Behavior Goal: Identification of resources available to assist in meeting health care needs will improve Outcome: Ongoing Problem: Skin Integrity Impairment Risk Goal: Mobility will improve Outcome: Ongoing Goal: Understanding of ways to prevent future skin breakdown will improve Outcome: Ongoing Goal: Nutritional status will improve Outcome: Ongoing Goal: Risk for impaired skin integrity will decrease Outcome: Ongoing Problem: Fall Risk Goal: Ability to state ways to decrease the risk of falls will improve Outcome: Ongoing Goal: Will remain free from falls Outcome: Ongoing Goal: Will remain free from injury from falls Outcome: Ongoing Problem: Discharge Planning Goal: Understanding discharge needs will improve Outcome: Ongoing * Plan of Care - Tatianna Berman RN - 11/27/2024 9:38 PM CDT Goals: Clinical Goals for the Shift: plan of care to be provided as ordered Problem: Isolation Lack of Knowledge Goal: Knowledge of risk factors and measures for prevention of condition will improve Outcome: Progressing Problem: Isolation Physical Regulation Goal: Isolation- Spread of further infection will be prevented Outcome: Progressing Goal: Isolation- Complications related to the disease process, condition, or treatment will be avoided or minimized. Outcome: Progressing Problem: Lack of Knowledge Goal: Ability to develop a pain control plan will improve Outcome: Progressing Problem: Medication Goal: Satisfaction with pain management medication regimen will improve Outcome: Progressing Problem: Sensory Goal: Ability to identify factors that increase pain levels will improve while working to decrease the patient's pain levels Outcome: Progressing Problem: Coping Goal: Ability to cope will improve Outcome: Progressing Problem: Health Behavior Goal: Identification of resources available to assist in meeting health care needs will improve Outcome: Progressing documented in this encounter Plan of Treatment Pending Results Name Type Priority Associated Diagnoses Date /Time Implantable Cardiac Device Electrophysiology Routine Hyperlipidemia Essential hypertension 12/07/2024 11:48 AM CDT Infection Prevention Cori auris PCR, surveillance Axilla/Groin Microbiology Routine 12/09/2024 6:20 AM CDT Scheduled Orders Name Type Priority Associated Diagnoses Orde r Schedule Infection Prevention Cori auris PCR, surveillance Axilla/Groin Microbiology Routine Once for 1 Occurrences starting 12/09/2024 until 12/09/2024 documented as of this encounter Procedures Procedure Name Priority Date/Time Associated Diagnosis Comments EGFR Routine 12/09/2024 6:37 AM CDT CBC WITHOUT DIFFERENTIAL Routine 12/09/2024 6:37 AM CDT BASIC METABOLIC PANEL Routine 12/09/2024 6:37 AM CDT EGFR Routine 12/08/2024 6:02 AM CDT BASIC METABOLIC PANEL Routine 12/08/2024 6:02 AM CDT XR CHEST 1 VIEW IP Routine 12/07/2024 1:36 PM CDT IMPLANT DUAL CHAMBER PPM SYSTEM W/ DUAL ELECTRODES (GEN AND LEADS, NEW OR REPLACE) Routine 12/07/2024 11:48 AM CDT Hyperlipidemia Essential hypertension Procedure Note - Sage Tillman MD - 12/07/2024 11:48 AM CDTThis note is in progress. Anvato Job ID: [id number] Anvato Document ID: [id number] Dictated date/time: [id number] Mr. 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 PROCEDURE The procedure was done under strict aseptic condition. Venogram was donethrough the left brachial vein to help getting access. Using the modified Seldinger technique and micropuncture needle, the leftsubclavian vein was cannulated. A micropuncture wire was placed in theright atrium. Over the micropuncture wire a micropuncture sheath wasinserted and through this sheath a regular J-wire was inserted into theright atrium. A 2nd wire was then inserted through the sheath and overthese wires a 7-Yi sheath was placed in the right atrium. With thehelp of a curved stylet the ventricular lead was then manipulated intoposition in the right ventricular apex. With the help of a preformed Jstylet the atrial lead was manipulated into the right atrial appendage.The following stimulation thresholds were obtained. For the atrial leadthe P-wave was 1.3 millivolt, impedance was 730 ohms. For the ventricularlead the threshold was 0.3 at a pulse width of 0.4, the impedance was 680ohms and the R-wave was 6 millivolt. No evidence of diaphragmatic pacingwas present. The leads were then connected to a [employer] S DR MRI compatible generator. The leads were thensutured to underlying muscle using 2-0 silk. The pocket was irrigatedwith antibiotic solution and incision closed in 2 layers, subcutaneouslayer being closed by 3-0 Vicryl and the skin by Monocryl. Dermabond wasapplied over the incision and Steri-Strips were placed. SUMMARY 1. Successful venogram of left upper extremity. 2. Successful placement of a dual-chamber Medtronic pacemaker in the leftpectoral area. Job ID/Internal Job ID: [id number] EGFR Routine 12/07/2024 3:30 AM CDT CBC WITHOUT DIFFERENTIAL Routine 12/07/2024 3:30 AM CDT BASIC METABOLIC PANEL Routine 12/07/2024 3:30 AM CDT PHOSPHORUS Routine 12/06/2024 3:17 PM CDT MAGNESIUM Routine 12/06/2024 3:17 PM CDT EGFR Routine 12/06/2024 5:04 AM CDT CBC WITHOUT DIFFERENTIAL Routine 12/06/2024 5:04 AM CDT BASIC METABOLIC PANEL Routine 12/06/2024 5:04 AM CDT ECG 12-LEAD STAT 12/05/2024 11:44 AM CDT EGFR Routine 12/05/2024 5:41 AM CDT CBC WITHOUT DIFFERENTIAL Routine 12/05/2024 5:41 AM CDT BASIC METABOLIC PANEL Routine 12/05/2024 5:41 AM CDT EGFR Routine 12/04/2024 6:47 AM CDT CBC WITHOUT DIFFERENTIAL Routine 12/04/2024 6:47 AM CDT BASIC METABOLIC PANEL Routine 12/04/2024 6:47 AM CDT EGFR Routine 12/03/2024 6:23 AM CDT CBC WITHOUT DIFFERENTIAL Routine 12/03/2024 6:23 AM CDT BASIC METABOLIC PANEL Routine 12/03/2024 6:23 AM CDT EGFR Routine 12/02/2024 6:50 AM CDT CBC WITHOUT DIFFERENTIAL Routine 12/02/2024 6:50 AM CDT BASIC METABOLIC PANEL Routine 12/02/2024 6:50 AM CDT EGFR Routine 12/01/2024 4:24 AM CDT CBC WITHOUT DIFFERENTIAL Routine 12/01/2024 4:24 AM CDT BASIC METABOLIC PANEL Routine 12/01/2024 4:24 AM CDT EGFR Routine 11/30/2024 5:09 AM CDT CBC WITHOUT DIFFERENTIAL Routine 11/30/2024 5:09 AM CDT BASIC METABOLIC PANEL Routine 11/30/2024 5:09 AM CDT NM MPI SPECT (REST AND/OR STRESS) MULTIPLE STUDIES IP Routine 11/29/2024 2:26 PM CDT STRESS TEST FOR DUAL READ IP Routine 11/29/2024 2:26 PM CDT TROPONIN T HIGH-SENSITIVITY 4-HR Timed 11/29/2024 10:28 AM CDT TROPONIN T HIGH-SENSITIVITY 2-HOUR Timed 11/29/2024 9:02 AM CDT TROPONIN T HIGH-SENSITIVITY SERIES (BASELINE, 2HR, 4HR, 6HR) Routine 11/29/2024 6:13 AM CDT EGFR Routine 11/29/2024 6:13 AM CDT CBC WITHOUT DIFFERENTIAL Routine 11/29/2024 6:13 AM CDT BASIC METABOLIC PANEL Routine 11/29/2024 6:13 AM CDT XR CHEST 1 VIEW IP Routine 11/28/2024 10:11 AM CDT ECG 12-LEAD Routine 11/28/2024 9:39 AM CDT EGFR Routine 11/28/2024 9:37 AM CDT CBC WITHOUT DIFFERENTIAL Routine 11/28/2024 9:37 AM CDT BASIC METABOLIC PANEL Routine 11/28/2024 9:37 AM CDT RESPIRATORY PATHOGEN PANEL Routine 11/27/2024 3:27 PM CDT BLOOD CULTURE Routine 11/27/2024 11:41 AM CDT BLOOD CULTURE Routine 11/27/2024 11:41 AM CDT documented in this encounter Results * eGFR (12/09/2024 6:37 AM CDT) eGFR >90 >=60 mL/min/1. 73 m2 Comment: Interpretive Data Reference Interval Normal >/= 90 mL/min/1.73m2 Mildly decreased* 60 - 89 mL/min/1.73m2 Mildly to moderately decreased 45 - 59 mL/min/1.73m2 Moderately to severely decreased 30 - 44 mL/min/1.73m2 Severely decreased 15 - 29 mL/min/1.73m2 Kidney Failure < 15 mL/min/1.73m2 *Relative to young adult level Estimated glomerular filtration rate is determined by the 2020 CKD-EPI equation recommended by the National Kidney Foundation (A Unifying Approach to GFR Estimation: Recommendations of the NKF-ASK Task Force on Reassessing the Inclusion of Race in Diagnosing Kidney Disease, JASN 2020). The CKD-EPI equation should not be used for patients with unstable renal function and has not been validated in children and those over 70. Current interpretive data was last reviewed 2021. Blood 12/09/2024 6:37 AM CDT 12/09/2024 7:04 AM CDT us Leanne Dockery MD LAB BLOOD ORDERABLES Final Re sult [facility] [address] Department [place] [address] * (ABNORMAL) Basic metabolic panel (12/09/2024 6:37 AM CDT) Sodium 132(L) 135 - 145 mmol/L Potassium, pl 4.2 3.3 - 4.9 mmol/L [facility] Chloride 101 97 - 110 mmol/L [facility] CO2 19(L) 22 - 32 mmol/L [facility] Anion gap 12 2 - 15 mmol/L [facility] BUN 12 6 - 25 mg/dL [facility] Creatinine 0.71(L) 0.80 - 1.30 mg/dL [facility] Glucose 108 70 - 199 mg/dL [facility] Comment: Interpretive Data Fasting glucose >/= 126 mg/dl is diagnostic for diabetes. Fasting is defined as no caloric intake for at least 8 hours. Fasting glucose between 100 mg/dl to 125 mg/dl is diagnostic of prediabetes. In a patient with classic symptoms of hyperglycemia or hyperglycemic crisis, a random glucose >/= 200 mg/dl is diagnostic for diabetes. In the absence of unequivocal hyperglycemia, results should be confirmed by repeat testing. The classification and Diagnosis of Diabetes Diabetes Care 2021; 46: S19-S40. Current interpretive data was last revised 2022. Calcium 9.5 8.5 - 10.3 mg/dL [facility] Blood 12/09/2024 6:37 AM CDT 12/09/2024 7:04 AM CDT us Leanne Dockery MD LAB BLOOD ORDERABLES Final Re sult [facility] [address] Department [place] [address] * (ABNORMAL) CBC without differential (12/09/2024 6:37 AM CDT) WBC 10.56(H) 3.80 - 9.90 K/cumm Hgb 11.1(L) 13.0 - 17.5 g/dL [facility] Hct 34.2(L) 38.9 - 50.3 % [facility] Plt 432(H) 150 - 400 K/cumm [facility] MPV 9.4 9.1 - 12.3 fL [facility] RBC 3.80(L) 4.30 - 5.80 M/cumm [facility] MCV 90.0 81.3 - 96.4 fL [facility] MCH 29.2 27.1 - 33.3 pg [facility] MCHC 32.5 32.3 - 35.7 g/dL [facility] RDW CV 14.6 11.1 - 14.9 % [facility] RDW SD 48.0 35.7 - 48.1 fL [facility] NRBC abs 0.00 0.00 - 0.01 K/cumm [facility] Blood 12/09/2024 6:37 AM CDT 12/09/2024 7:03 AM CDT Leanne Dockery MD LAB BLOOD ORDERABLES Final Re sult Performing Organization Address [facility]/ZIP Co de Phone Number ANUSHA DIXON [address] [employer] [place] [address] * eGFR (12/08/2024 6:02 AM CDT) eGFR >90 >=60 mL/min/1. 73 m2 Comment: Interpretive Data Reference Interval Normal >/= 90 mL/min/1.73m2 Mildly decreased* 60 - 89 mL/min/1.73m2 Mildly to moderately decreased 45 - 59 mL/min/1.73m2 Moderately to severely decreased 30 - 44 mL/min/1.73m2 Severely decreased 15 - 29 mL/min/1.73m2 Kidney Failure < 15 mL/min/1.73m2 *Relative to young adult level Estimated glomerular filtration rate is determined by the 2020 CKD-EPI equation recommended by the National Kidney Foundation (A Unifying Approach to GFR Estimation: Recommendations of the NKF-ASK Task Force on Reassessing the Inclusion of Race in Diagnosing Kidney Disease, JASN 202). The CKD-EPI equation should not be used for patients with unstable renal function and has not been validated in children and those over 70. Current interpretive data was last reviewed 2021. Blood 12/08/2024 6:02 AM CDT 12/08/2024 6:50 AM CDT Leanne Dockery MD LAB BLOOD ORDERABLES Final Re sult Performing Organization Address [facility]/ZIP Co de Phone Number ANUSHA DIXON [address] [employer] [place], [place] [id number] * (ABNORMAL) Basic metabolic panel (12/08/2024 6:02 AM CDT) Sodium 137 135 - 145 mmol/L Potassium, pl 4.3 3.3 - 4.9 mmol/L [facility] Chloride 105 97 - 110 mmol/L [facility] CO2 20(L) 22 - 32 mmol/L [facility] Anion gap 12 2 - 15 mmol/L [facility] BUN 14 6 - 25 mg/dL [facility] Creatinine 0.78(L) 0.80 - 1.30 mg/dL [facility] Glucose 95 70 - 199 mg/dL [facility] Comment: Interpretive Data Fasting glucose >/= 126 mg/dl is diagnostic for diabetes. Fasting is defined as no caloric intake for at least 8 hours. Fasting glucose between 100 mg/dl to 125 mg/dl is diagnostic of prediabetes. In a patient with classic symptoms of hyperglycemia or hyperglycemic crisis, a random glucose >/= 200 mg/dl is diagnostic for diabetes. In the absence of unequivocal hyperglycemia, results should be confirmed by repeat testing. The classification and Diagnosis of Diabetes Diabetes Care 2021; 46: S19-S40. Current interpretive data was last revised 2022. Calcium 9.3 8.5 - 10.3 mg/dL [facility] Blood 12/08/2024 6:02 AM CDT 12/08/2024 6:50 AM CDT us Leanne Dockery MD LAB BLOOD ORDERABLES Final Re sult [facility] [address] Department [place] [address] * X-ray chest 1 view (Portable) (12/07/2024 1:36 PM CDT) Anatomical Region Laterality Modality Body, Chest N/A Computed Radiogr aphy 12/07/2024 1:37 PM CDT Impressions 12/07/2024 1:37 PM CDT No active disease. No failure.. Electronically signed by: Yordan Dai M.D. Narrative 12/07/2024 1:37 PM CDT EXAMINATION: XR CHEST 1 VIEW DATE: 12/07/2024 12:50 PM HISTORY: Shortness of breath heart disease previous stroke hypertension FINDINGS:Compared with the study of 11/28/2024, postsurgical changes in the heart and mediastinum. Heart size upper limits of normal. Pacing leads stable. No failure fluid or infiltrates. Procedure Note Yordan Dai MD - 12/07/2024 EXAMINATION: XR CHEST 1 VIEW DATE: 12/07/2024 12:50 PM HISTORY: Shortness of breath heart disease previous stroke hypertension FINDINGS:Compared with the study of 11/28/2024, postsurgical changes in the heart and mediastinum. Heart size upper limits of normal. Pacing leads stable. No failure fluid or infiltrates. IMPRESSION: No active disease. No failure.. Electronically signed by: Yordan Dai M.D. us Sage Tillman MD IMG XR PROCEDURES Final Result * eGFR (12/07/2024 3:30 AM CDT) eGFR 90 >=60 mL/min/1. 73 m2 Comment: Interpretive Data Reference Interval Normal >/= 90 mL/min/1.73m2 Mildly decreased* 60 - 89 mL/min/1.73m2 Mildly to moderately decreased 45 - 59 mL/min/1.73m2 Moderately to severely decreased 30 - 44 mL/min/1.73m2 Severely decreased 15 - 29 mL/min/1.73m2 Kidney Failure < 15 mL/min/1.73m2 *Relative to young adult level Estimated glomerular filtration rate is determined by the 2020 CKD-EPI equation recommended by the National Kidney Foundation (A Unifying Approach to GFR Estimation: Recommendations of the NKF-ASK Task Force on Reassessing the Inclusion of Race in Diagnosing Kidney Disease, JASN 2020). The CKD-EPI equation should not be used for patients with unstable renal function and has not been validated in children and those over 70. Current interpretive data was last reviewed 2021. Blood 12/07/2024 3:30 AM CDT 12/07/2024 4:16 AM CDT us Leanne Dockery MD LAB BLOOD ORDERABLES Final Re sult Performing Organization Address [facility]/ZIP Co de Phone Number ANUSHA DIXON [address] Department [place] [address] * (ABNORMAL) Basic metabolic panel (12/07/2024 3:30 AM CDT) Sodium 138 135 - 145 mmol/L Potassium, pl 3.8 3.3 - 4.9 mmol/L [facility] Chloride 106 97 - 110 mmol/L [facility] CO2 19(L) 22 - 32 mmol/L [facility] Anion gap 13 2 - 15 mmol/L [facility] BUN 14 6 - 25 mg/dL [facility] Creatinine 0.86 0.80 - 1.30 mg/dL [facility] Glucose 95 70 - 199 mg/dL [facility] Comment: Interpretive Data Fasting glucose >/= 126 mg/dl is diagnostic for diabetes. Fasting is defined as no caloric intake for at least 8 hours. Fasting glucose between 100 mg/dl to 125 mg/dl is diagnostic of prediabetes. In a patient with classic symptoms of hyperglycemia or hyperglycemic crisis, a random glucose >/= 200 mg/dl is diagnostic for diabetes. In the absence of unequivocal hyperglycemia, results should be confirmed by repeat testing. The classification and Diagnosis of Diabetes Diabetes Care 2021; 46: S19-S40. Current interpretive data was last revised 2022. Calcium 9.2 8.5 - 10.3 mg/dL [facility] Blood 12/07/2024 3:30 AM CDT 12/07/2024 4:16 AM CDT us Leanne Dockery MD LAB BLOOD ORDERABLES Final Re sult Performing Organization Address [facility]/ZIP Co de Phone Number ANUSHA DIXON [address] Department [place] [address] * (ABNORMAL) CBC without differential (12/07/2024 3:30 AM CDT) WBC 11.69(H) 3.80 - 9.90 K/cumm Hgb 11.0(L) 13.0 - 17.5 g/dL [facility] Hct 34.4(L) 38.9 - 50.3 % [facility] Plt 468(H) 150 - 400 K/cumm [facility] MPV 9.4 9.1 - 12.3 fL [facility] RBC 3.85(L) 4.30 - 5.80 M/cumm [facility] MCV 89.4 81.3 - 96.4 fL [facility] MCH 28.6 27.1 - 33.3 pg [facility] MCHC 32.0(L) 32.3 - 35.7 g/dL [facility] CH RDW CV 14.5 11.1 - 14.9 % [facility] CH RDW SD 46.5 35.7 - 48.1 fL [facility] NRBC abs 0.00 0.00 - 0.01 K/cumm [facility] Blood 12/07/2024 3:30 AM CDT 12/07/2024 4:17 AM CDT Leanne Dockery MD LAB BLOOD ORDERABLES Final Re sult Performing Organization Address [facility]/ZIP Co de Phone Number GRADYZAHEER DIXON [address] Department of [employer] [place] [address] * Phosphorus (12/06/2024 3:17 PM CDT) Phosphorus, pl 3.7 2.3 - 4.5 mg/dL Blood 12/06/2024 3:17 PM CDT 12/06/2024 4:17 PM CDT Son Card MD LAB BLOOD ORDERABLES Final Result Performing Organization Address [facility]/ZIP Co de Phone Number [facility] [address] Department of [employer] [place], [place] [phone] * Magnesium (12/06/2024 3:17 PM CDT) Pathologist [facility] Magnesium 1.9 1.4 - 2.5 mg/dL Blood 12/06/2024 3:17 PM CDT 12/06/2024 4:17 PM CDT Son Card MD LAB BLOOD ORDERABLES Final Result Performing Organization Address [facility] Co de Phone Number ANUSHA DIXON [address] Department [place] [address] * eGFR (12/06/2024 5:04 AM CDT) eGFR 90 >=60 mL/min/1. 73 m2 Comment: Interpretive Data Reference Interval Normal >/= 90 mL/min/1.73m2 Mildly decreased* 60 - 89 mL/min/1.73m2 Mildly to moderately decreased 45 - 59 mL/min/1.73m2 Moderately to severely decreased 30 - 44 mL/min/1.73m2 Severely decreased 15 - 29 mL/min/1.73m2 Kidney Failure < 15 mL/min/1.73m2 *Relative to young adult level Estimated glomerular filtration rate is determined by the 2020 CKD-EPI equation recommended by the National Kidney Foundation (A Unifying Approach to GFR Estimation: Recommendations of the NKF-ASK Task Force on Reassessing the Inclusion of Race in Diagnosing Kidney Disease, JASN 2020). The CKD-EPI equation should not be used for patients with unstable renal function and has not been validated in children and those over 70. Current interpretive data was last reviewed 2021. Blood 12/06/2024 5:04 AM CDT 12/06/2024 5:55 AM CDT Leanne Dockery MD LAB BLOOD ORDERABLES Final Re sult Performing Organization Address [facility]/ZIP Co de Phone Number ANUSHA DIXON [address] Department [place] [address] * (ABNORMAL) Basic metabolic panel (12/06/2024 5:04 AM CDT) Sodium 138 135 - 145 mmol/L Potassium, pl 3.3 3.3 - 4.9 mmol/L [facility] Chloride 104 97 - 110 mmol/L [facility] CO2 21(L) 22 - 32 mmol/L [facility] Anion gap 13 2 - 15 mmol/L [facility] BUN 15 6 - 25 mg/dL [facility] Creatinine 0.87 0.80 - 1.30 mg/dL [facility] Glucose 104 70 - 199 mg/dL [facility] Comment: Interpretive Data Fasting glucose >/= 126 mg/dl is diagnostic for diabetes. Fasting is defined as no caloric intake for at least 8 hours. Fasting glucose between 100 mg/dl to 125 mg/dl is diagnostic of prediabetes. In a patient with classic symptoms of hyperglycemia or hyperglycemic crisis, a random glucose >/= 200 mg/dl is diagnostic for diabetes. In the absence of unequivocal hyperglycemia, results should be confirmed by repeat testing. The classification and Diagnosis of Diabetes Diabetes Care 2021; 46: S19-S40. Current interpretive data was last revised 2022. Calcium 9.4 8.5 - 10.3 mg/dL [facility] Blood 12/06/2024 5:04 AM CDT 12/06/2024 5:55 AM CDT us Leanne Dockery MD LAB BLOOD ORDERABLES Final Re sult [facility] [address] Department [place] [address] * (ABNORMAL) CBC without differential (12/06/2024 5:04 AM CDT) WBC 8.24 3.80 - 9.90 K/cumm Hgb 11.0(L) 13.0 - 17.5 g/dL [facility] Hct 33.6(L) 38.9 - 50.3 % [facility] Plt 467(H) 150 - 400 K/cumm [facility] MPV 9.3 9.1 - 12.3 fL [facility] RBC 3.76(L) 4.30 - 5.80 M/cumm [facility] MCV 89.4 81.3 - 96.4 fL [facility] MCH 29.3 27.1 - 33.3 pg [facility] MCHC 32.7 32.3 - 35.7 g/dL [facility] RDW CV 14.5 11.1 - 14.9 % [facility] RDW SD 46.8 35.7 - 48.1 fL [facility] NRBC abs 0.00 0.00 - 0.01 K/cumm [facility] Blood 12/06/2024 5:04 AM CDT 12/06/2024 5:56 AM CDT Leanne Dockery MD LAB BLOOD ORDERABLES Final Re sult Performing Organization Address [facility] Co de Phone Number ANUSHA [phone] Department [place] [address] * ECG 12 lead (12/05/2024 11:44 AM CDT) 12/05/2024 11:4 4 AM CDT Narrative [facility] - 12/05/2024 12:39 PM CDT Vent Rate: 117 bpm RR Interval: 510 msec IA Interval: 0 msec QRS Duration: 100 msec QT Interval: 331 msec QTC Interval: 401 msec P-R-T [place]: 0 - 16 - -9 degrees IMPRESSION: ATRIAL FLUTTER WITH RAPID VENTRICULAR RESPONSE SEPTAL MYOCARDIAL INFARCTION , PROBABLY OLD [40+ ms Q WAVE IN V1/V2] ABNORMAL ECG Compared to prior EKG, heart rate has increased Atrial flutter replaced sinus rhythm Electronically Signed By: Murphy Gaitan MD us Sage Tillman MD ECG ORDERABLES Final Result Performing Organization Address [facility] Co de Phone Number [facility] [employer] [facility] * eGFR (12/05/2024 5:41 AM CDT) eGFR >90 >=60 mL/min/1. 73 m2 Comment: Interpretive Data Reference Interval Normal >/= 90 mL/min/1.73m2 Mildly decreased* 60 - 89 mL/min/1.73m2 Mildly to moderately decreased 45 - 59 mL/min/1.73m2 Moderately to severely decreased 30 - 44 mL/min/1.73m2 Severely decreased 15 - 29 mL/min/1.73m2 Kidney Failure < 15 mL/min/1.73m2 *Relative to young adult level Estimated glomerular filtration rate is determined by the 2020 CKD-EPI equation recommended by the National Kidney Foundation (A Unifying Approach to GFR Estimation: Recommendations of the NKF-ASK Task Force on Reassessing the Inclusion of Race in Diagnosing Kidney Disease, JASN 2020). The CKD-EPI equation should not be used for patients with unstable renal function and has not been validated in children and those over 70. Current interpretive data was last reviewed 2021. Blood 12/05/2024 5:41 AM CDT 12/05/2024 5:48 AM CDT us Leanne Dockery MD LAB BLOOD ORDERABLES Final Re sult [facility] [address] Department [place] [address] * (ABNORMAL) Basic metabolic panel (12/05/2024 5:41 AM CDT) Sodium 138 135 - 145 mmol/L Potassium, pl 3.5 3.3 - 4.9 mmol/L [facility] Chloride 104 97 - 110 mmol/L [facility] CO2 22 22 - 32 mmol/L [facility] Anion gap 12 2 - 15 mmol/L [facility] BUN 13 6 - 25 mg/dL [facility] Creatinine 0.77(L) 0.80 - 1.30 mg/dL [facility] Glucose 114 70 - 199 mg/dL [facility] Comment: Interpretive Data Fasting glucose >/= 126 mg/dl is diagnostic for diabetes. Fasting is defined as no caloric intake for at least 8 hours. Fasting glucose between 100 mg/dl to 125 mg/dl is diagnostic of prediabetes. In a patient with classic symptoms of hyperglycemia or hyperglycemic crisis, a random glucose >/= 200 mg/dl is diagnostic for diabetes. In the absence of unequivocal hyperglycemia, results should be confirmed by repeat testing. The classification and Diagnosis of Diabetes Diabetes Care 202; 46: S19-S40. Current interpretive data was last revised 2022. Calcium 9.7 8.5 - 10.3 mg/dL [facility] Blood 12/05/2024 5:41 AM CDT 12/05/2024 5:48 AM CDT Leanne Dockery MD LAB BLOOD ORDERABLES Final Re sult Performing Organization Address City[facility]/ZIP Co de Phone Number ANUSHA [address] [employer] [place] [address] * (ABNORMAL) CBC without differential (12/05/2024 5:41 AM CDT) Pathologist [facility] WBC 8.00 3.80 - 9.90 K/cumm Hgb 11.7(L) 13.0 - 17.5 g/dL [facility] Hct 36.4(L) 38.9 - 50.3 % [facility] Plt 502(H) 150 - 400 K/cumm [facility] MPV 9.1 9.1 - 12.3 fL [facility] RBC 4.08(L) 4.30 - 5.80 M/cumm [facility] MCV 89.2 81.3 - 96.4 fL [facility] MCH 28.7 27.1 - 33.3 pg [facility] MCHC 32.1(L) 32.3 - 35.7 g/dL [facility] CH RDW CV 14.5 11.1 - 14.9 % [facility] CH RDW SD 46.7 35.7 - 48.1 fL [facility] NRBC abs 0.00 0.00 - 0.01 K/cumm [facility] Blood 12/05/2024 5:41 AM CDT 12/05/2024 5:49 AM CDT Leanne Dockery MD LAB BLOOD ORDERABLES Final Re sult ANUSHA DIXON [address] Department of [employer] [place], [place] [id number] * eGFR (12/04/2024 6:47 AM CDT) [facility] eGFR >90 >=60 mL/min/1. 73 m2 Comment: Interpretive Data Reference Interval Normal >/= 90 mL/min/1.73m2 Mildly decreased* 60 - 89 mL/min/1.73m2 Mildly to moderately decreased 45 - 59 mL/min/1.73m2 Moderately to severely decreased 30 - 44 mL/min/1.73m2 Severely decreased 15 - 29 mL/min/1.73m2 Kidney Failure < 15 mL/min/1.73m2 *Relative to young adult level Estimated glomerular filtration rate is determined by the 2020 CKD-EPI equation recommended by the National Kidney Foundation (A Unifying Approach to GFR Estimation: Recommendations of the NKF-ASK Task Force on Reassessing the Inclusion of Race in Diagnosing Kidney Disease, JASN 2020). The CKD-EPI equation should not be used for patients with unstable renal function and has not been validated in children and those over 70. Current interpretive data was last reviewed 2021. Blood 12/04/2024 6:47 AM CDT 12/04/2024 7:37 AM CDT us Leanne Dockery MD LAB BLOOD ORDERABLES Final Re sult [facility] [address] Department [place] [address] * (ABNORMAL) Basic metabolic panel (12/04/2024 6:47 AM CDT) Sodium 137 135 - 145 mmol/L Potassium, pl 3.7 3.3 - 4.9 mmol/L [facility] Chloride 102 97 - 110 mmol/L [facility] CO2 21(L) 22 - 32 mmol/L [facility] Anion gap 14 2 - 15 mmol/L [facility] BUN 13 6 - 25 mg/dL [facility] Creatinine 0.76(L) 0.80 - 1.30 mg/dL [facility] Glucose 120 70 - 199 mg/dL [facility] Comment: Interpretive Data Fasting glucose >/= 126 mg/dl is diagnostic for diabetes. Fasting is defined as no caloric intake for at least 8 hours. Fasting glucose between 100 mg/dl to 125 mg/dl is diagnostic of prediabetes. In a patient with classic symptoms of hyperglycemia or hyperglycemic crisis, a random glucose >/= 200 mg/dl is diagnostic for diabetes. In the absence of unequivocal hyperglycemia, results should be confirmed by repeat testing. The classification and Diagnosis of Diabetes Diabetes Care 202; 46: S19-S40. Current interpretive data was last revised 2022. Calcium 9.4 8.5 - 10.3 mg/dL [facility] Blood 12/04/2024 6:47 AM CDT 12/04/2024 7:37 AM CDT Leanne Dockery MD LAB BLOOD ORDERABLES Final Re sult Performing Organization Address [facility]/ZIP Co de Phone Number ANUSHA DXION [address] [employer] [place], [place] [id number] * (ABNORMAL) CBC without differential (12/04/2024 6:47 AM CDT) Pathologist [facility] WBC 8.73 3.80 - 9.90 K/cumm Hgb 11.7(L) 13.0 - 17.5 g/dL [facility] Hct 35.3(L) 38.9 - 50.3 % [facility] Plt 490(H) 150 - 400 K/cumm [facility] MPV 9.2 9.1 - 12.3 fL [facility] 4.02(L) 4.30 - 5.80 M/cumm [facility] MCV 87.8 81.3 - 96.4 fL [facility] MCH 29.1 27.1 - 33.3 pg [facility] MCHC 33.1 32.3 - 35.7 g/dL [facility] RDW CV 14.4 11.1 - 14.9 % [facility] RDW SD 45.9 35.7 - 48.1 fL [facility] NRBC abs 0.00 0.00 - 0.01 K/cumm [facility] Blood 12/04/2024 6:47 AM CDT 12/04/2024 7:37 AM CDT Leanne Dockery MD LAB BLOOD ORDERABLES Final Re sult Performing Organization Address [facility]/ZIP Co de Phone Number ANUSHA DIXON [address] Department of [employer] [place] [place] [address] * eGFR (12/03/2024 6:23 AM CDT) eGFR >90 >=60 mL/min/1. 73 m2 Comment: Interpretive Data Reference Interval Normal >/= 90 mL/min/1.73m2 Mildly decreased* 60 - 89 mL/min/1.73m2 Mildly to moderately decreased 45 - 59 mL/min/1.73m2 Moderately to severely decreased 30 - 44 mL/min/1.73m2 Severely decreased 15 - 29 mL/min/1.73m2 Kidney Failure < 15 mL/min/1.73m2 *Relative to young adult level Estimated glomerular filtration rate is determined by the 2020 CKD-EPI equation recommended by the National Kidney Foundation (A Unifying Approach to GFR Estimation: Recommendations of the NKF-ASK Task Force on Reassessing the Inclusion of Race in Diagnosing Kidney Disease, JASN 2020). The CKD-EPI equation should not be used for patients with unstable renal function and has not been validated in children and those over 70. Current interpretive data was last reviewed 2021. Blood 12/03/2024 6:23 AM CDT 12/03/2024 6:29 AM CDT us Leanne Dockery MD LAB BLOOD ORDERABLES Final Re sult [facility] [address] Department [place] [address] * (ABNORMAL) Basic metabolic panel (12/03/2024 6:23 AM CDT) Pathologist [facility] Sodium 136 135 - 145 mmol/L Potassium, pl 3.6 3.3 - 4.9 mmol/L [facility] Chloride 102 97 - 110 mmol/L [facility] CO2 22 22 - 32 mmol/L [facility] Anion gap 12 2 - 15 mmol/L [facility] BUN 13 6 - 25 mg/dL [facility] Creatinine 0.76(L) 0.80 - 1.30 mg/dL [facility] Glucose 103 70 - 199 mg/dL [facility] Comment: Interpretive Data Fasting glucose >/= 126 mg/dl is diagnostic for diabetes. Fasting is defined as no caloric intake for at least 8 hours. Fasting glucose between 100 mg/dl to 125 mg/dl is diagnostic of prediabetes. In a patient with classic symptoms of hyperglycemia or hyperglycemic crisis, a random glucose >/= 200 mg/dl is diagnostic for diabetes. In the absence of unequivocal hyperglycemia, results should be confirmed by repeat testing. The classification and Diagnosis of Diabetes Diabetes Care 2021; 46: S19-S40. Current interpretive data was last revised 2022. Calcium 9.3 8.5 - 10.3 mg/dL [facility] Blood 12/03/2024 6:23 AM CDT 12/03/2024 6:29 AM CDT Leanne Dockery MD LAB BLOOD ORDERABLES Final Re sult ANUSHA [address] Department [place] [address] * (ABNORMAL) CBC without differential (12/03/2024 6:23 AM CDT) WBC 8.34 3.80 - 9.90 K/cumm Hgb 11.1(L) 13.0 - 17.5 g/dL [facility] Hct 34.5(L) 38.9 - 50.3 % [facility] Plt 423(H) 150 - 400 K/cumm [facility] MPV 9.1 9.1 - 12.3 fL [facility] RBC 3.90(L) 4.30 - 5.80 M/cumm [facility] MCV 88.5 81.3 - 96.4 fL [facility] MCH 28.5 27.1 - 33.3 pg [facility] MCHC 32.2(L) 32.3 - 35.7 g/dL [facility] RDW CV 14.4 11.1 - 14.9 % [facility] RDW SD 46.2 35.7 - 48.1 fL [facility] NRBC abs 0.00 0.00 - 0.01 K/cumm [facility] Blood 12/03/2024 6:23 AM CDT 12/03/2024 6:29 AM CDT Leanne Dockery MD LAB BLOOD ORDERABLES Final Re sult Performing Organization Address [facility] de Phone Number ANUSHA DIXON [address] Department [place] [address] * eGFR (12/02/2024 6:50 AM CDT) eGFR >90 >=60 mL/min/1. 73 m2 Comment: Interpretive Data Reference Interval Normal >/= 90 mL/min/1.73m2 Mildly decreased* 60 - 89 mL/min/1.73m2 Mildly to moderately decreased 45 - 59 mL/min/1.73m2 Moderately to severely decreased 30 - 44 mL/min/1.73m2 Severely decreased 15 - 29 mL/min/1.73m2 Kidney Failure < 15 mL/min/1.73m2 *Relative to young adult level Estimated glomerular filtration rate is determined by the 2020 CKD-EPI equation recommended by the National Kidney Foundation (A Unifying Approach to GFR Estimation: Recommendations of the NKF-ASK Task Force on Reassessing the Inclusion of Race in Diagnosing Kidney Disease, JASN 2020). The CKD-EPI equation should not be used for patients with unstable renal function and has not been validated in children and those over 70. Current interpretive data was last reviewed 2021. Blood 12/02/2024 6:50 AM CDT 12/02/2024 7:17 AM CDT Leanne Dockery MD LAB BLOOD ORDERABLES Final Re sult Performing Organization Address [facility] Co de Phone Number ANUSHA DIXON [address] Department [place] [address] * (ABNORMAL) Basic metabolic panel (12/02/2024 6:50 AM CDT) Sodium 134(L) 135 - 145 mmol/L Potassium, pl 3.6 3.3 - 4.9 mmol/L [facility] Chloride 100 97 - 110 mmol/L [facility] CO2 24 22 - 32 mmol/L [facility] Anion gap 10 2 - 15 mmol/L [facility] BUN 10 6 - 25 mg/dL [facility] Creatinine 0.78(L) 0.80 - 1.30 mg/dL [facility] Glucose 99 70 - 199 mg/dL [facility] Comment: Interpretive Data Fasting glucose >/= 126 mg/dl is diagnostic for diabetes. Fasting is defined as no caloric intake for at least 8 hours. Fasting glucose between 100 mg/dl to 125 mg/dl is diagnostic of prediabetes. In a patient with classic symptoms of hyperglycemia or hyperglycemic crisis, a random glucose >/= 200 mg/dl is diagnostic for diabetes. In the absence of unequivocal hyperglycemia, results should be confirmed by repeat testing. The classification and Diagnosis of Diabetes Diabetes Care 2021; 46: S19-S40. Current interpretive data was last revised 2022. Calcium 9.5 8.5 - 10.3 mg/dL [facility] Blood 12/02/2024 6:50 AM CDT 12/02/2024 7:17 AM CDT us Leanne Dockery MD LAB BLOOD ORDERABLES Final Re sult [facility] [address] Department [place] [address] * (ABNORMAL) CBC without differential (12/02/2024 6:50 AM CDT) WBC 9.22 3.80 - 9.90 K/cumm Hgb 11.1(L) 13.0 - 17.5 g/dL [facility] Hct 33.9(L) 38.9 - 50.3 % [facility] Plt 393 150 - 400 K/cumm [facility] MPV 9.5 9.1 - 12.3 fL [facility] RBC 3.85(L) 4.30 - 5.80 M/cumm [facility] MCV 88.1 81.3 - 96.4 fL [facility] MCH 28.8 27.1 - 33.3 pg [facility] MCHC 32.7 32.3 - 35.7 g/dL [facility] RDW CV 13.9 11.1 - 14.9 % [facility] RDW SD 44.8 35.7 - 48.1 fL [facility] NRBC abs 0.00 0.00 - 0.01 K/cumm [facility] Blood 12/02/2024 6:50 AM CDT 12/02/2024 7:17 AM CDT Leanne Dockery MD LAB BLOOD ORDERABLES Final Re sult Performing Organization Address [facility] Co de Phone Number ANUSHA DIXON [address] Department of [employer] [place], [place] [id number] * eGFR (12/01/2024 4:24 AM CDT) eGFR >90 >=60 mL/min/1. 73 m2 Comment: Interpretive Data Reference Interval Normal >/= 90 mL/min/1.73m2 Mildly decreased* 60 - 89 mL/min/1.73m2 Mildly to moderately decreased 45 - 59 mL/min/1.73m2 Moderately to severely decreased 30 - 44 mL/min/1.73m2 Severely decreased 15 - 29 mL/min/1.73m2 Kidney Failure < 15 mL/min/1.73m2 *Relative to young adult level Estimated glomerular filtration rate is determined by the 2020 CKD-EPI equation recommended by the National Kidney Foundation (A Unifying Approach to GFR Estimation: Recommendations of the NKF-ASK Task Force on Reassessing the Inclusion of Race in Diagnosing Kidney Disease, JASN 2020). The CKD-EPI equation should not be used for patients with unstable renal function and has not been validated in children and those over 70. Current interpretive data was last reviewed 2021. Blood 12/01/2024 4:24 AM CDT 12/01/2024 4:49 AM CDT Leanne Dockery MD LAB BLOOD ORDERABLES Final Re sult Performing Organization Address [facility]/ZIP Co de Phone Number ANUSHA DIXON [phone] Department of [employer] [place], [place] [id number] * (ABNORMAL) Basic metabolic panel (12/01/2024 4:24 AM CDT) Sodium 132(L) 135 - 145 mmol/L Potassium, pl 3.5 3.3 - 4.9 mmol/L [facility] Chloride 100 97 - 110 mmol/L [facility] CO2 21(L) 22 - 32 mmol/L [facility] Anion gap 11 2 - 15 mmol/L [facility] BUN 10 6 - 25 mg/dL [facility] Creatinine 0.71(L) 0.80 - 1.30 mg/dL [facility] Glucose 107 70 - 199 mg/dL [facility] Comment: Interpretive Data Fasting glucose >/= 126 mg/dl is diagnostic for diabetes. Fasting is defined as no caloric intake for at least 8 hours. Fasting glucose between 100 mg/dl to 125 mg/dl is diagnostic of prediabetes. In a patient with classic symptoms of hyperglycemia or hyperglycemic crisis, a random glucose >/= 200 mg/dl is diagnostic for diabetes. In the absence of unequivocal hyperglycemia, results should be confirmed by repeat testing. The classification and Diagnosis of Diabetes Diabetes Care 2021; 46: S19-S40. Current interpretive data was last revised 2022. Calcium 9.0 8.5 - 10.3 mg/dL [facility] Blood 12/01/2024 4:24 AM CDT 12/01/2024 4:49 AM CDT us Leanne Dockery MD LAB BLOOD ORDERABLES Final Re sult AN[facility] [address] Department [place] [address] * (ABNORMAL) CBC without differential (12/01/2024 4:24 AM CDT) WBC 8.01 3.80 - 9.90 K/cumm Hgb 10.5(L) 13.0 - 17.5 g/dL [facility] Hct 32.4(L) 38.9 - 50.3 % [facility] Plt 351 150 - 400 K/cumm [facility] MPV 9.5 9.1 - 12.3 fL [facility] RBC 3.68(L) 4.30 - 5.80 M/cumm [facility] MCV 88.0 81.3 - 96.4 fL [facility] MCH 28.5 27.1 - 33.3 pg [facility] MCHC 32.4 32.3 - 35.7 g/dL [facility] RDW CV 13.9 11.1 - 14.9 % [facility] RDW SD 45.7 35.7 - 48.1 fL [facility] NRBC abs 0.00 0.00 - 0.01 K/cumm [facility] Blood 12/01/2024 4:24 AM CDT 12/01/2024 4:55 AM CDT Leanne Dockery MD LAB BLOOD ORDERABLES Final Re sult Performing Organization Address [facility] Co de Phone Number ANUSHA DIXON [address] [employer] [place] [address] * eGFR (11/30/2024 5:09 AM CDT) eGFR >90 >=60 mL/min/1. 73 m2 Comment: Interpretive Data Reference Interval Normal >/= 90 mL/min/1.73m2 Mildly decreased* 60 - 89 mL/min/1.73m2 Mildly to moderately decreased 45 - 59 mL/min/1.73m2 Moderately to severely decreased 30 - 44 mL/min/1.73m2 Severely decreased 15 - 29 mL/min/1.73m2 Kidney Failure < 15 mL/min/1.73m2 *Relative to young adult level Estimated glomerular filtration rate is determined by the 2020 CKD-EPI equation recommended by the National Kidney Foundation (A Unifying Approach to GFR Estimation: Recommendations of the NKF-ASK Task Force on Reassessing the Inclusion of Race in Diagnosing Kidney Disease, JASN 2020). The CKD-EPI equation should not be used for patients with unstable renal function and has not been validated in children and those over 70. Current interpretive data was last reviewed 2021. Blood 11/30/2024 5:09 AM CDT 11/30/2024 5:16 AM CDT Leanne Dockery MD LAB BLOOD ORDERABLES Final Re sult Performing Organization Address [facility] Co de Phone Number ANUSHA DIXON [address] Department [place] [address] * (ABNORMAL) Basic metabolic panel (11/30/2024 5:09 AM CDT) Sodium 132(L) 135 - 145 mmol/L Potassium, pl 3.8 3.3 - 4.9 mmol/L [facility] Chloride 102 97 - 110 mmol/L [facility] CO2 19(L) 22 - 32 mmol/L [facility] Anion gap 11 2 - 15 mmol/L [facility] BUN 12 6 - 25 mg/dL [facility] Creatinine 0.66(L) 0.80 - 1.30 mg/dL [facility] Glucose 106 70 - 199 mg/dL [facility] Comment: Interpretive Data Fasting glucose >/= 126 mg/dl is diagnostic for diabetes. Fasting is defined as no caloric intake for at least 8 hours. Fasting glucose between 100 mg/dl to 125 mg/dl is diagnostic of prediabetes. In a patient with classic symptoms of hyperglycemia or hyperglycemic crisis, a random glucose >/= 200 mg/dl is diagnostic for diabetes. In the absence of unequivocal hyperglycemia, results should be confirmed by repeat testing. The classification and Diagnosis of Diabetes Diabetes Care 2021; 46: S19-S40. Current interpretive data was last revised 2022. Calcium 8.9 8.5 - 10.3 mg/dL [facility] Blood 11/30/2024 5:0 9 AM CDT 11/30/2024 5:16 AM CDT Leanne Dockery MD LAB BLOOD ORDERABLES Final Re sult AN[facility] [address] Department [place] [address] * (ABNORMAL) CBC without differential (11/30/2024 5:09 AM CDT) Pathologist [facility] WBC 9.18 3.80 - 9.90 K/cumm Hgb 10.6(L) 13.0 - 17.5 g/dL [facility] Hct 31.8(L) 38.9 - 50.3 % [facility] Plt 347 150 - 400 K/cumm [facility] MPV 9.4 9.1 - 12.3 fL [facility] RBC 3.62(L) 4.30 - 5.80 M/cumm [facility] MCV 87.8 81.3 - 96.4 fL [facility] MCH 29.3 27.1 - 33.3 pg AN[facility]HA MCHC 33.3 32.3 - 35.7 g/dL [facility] RDW CV 13.9 11.1 - 14.9 % [facility] RDW SD 45.1 35.7 - 48.1 fL [facility] NRBC abs 0.00 0.00 - 0.01 K/cumm [facility] Blood 11/30/2024 5:09 AM CDT 11/30/2024 5:18 AM CDT us Leanne Dockery MD LAB BLOOD ORDERABLES Final Re sult [facility] [address] Department [place] [address] * Stress Test for Myocardial Perfusion (11/29/2024 2:26 PM CDT) Anatomical Region Laterality Modality Nuclear Medicine 11/29/2024 8:30 AM CDT Narrative 11/30/2024 8:[place] [address] MPI Imaging Report Patient Name: AYAD SHIPMAN R : 1950 Study Date: 11/29/2024 8:30:00 AM Gender: M Tech: Location: [id number] Ref Provider: SANTANA BANSAL Height(Cm): BSA: Weight(Kg): Heart Rate: 123 Order Provider: SANTANA BANSAL PROCEDURES: Pharmacologic SPECT Report.: Myocardial perfusion imaging with Tetrofosmin SPECT at rest and post regadenoson (Lexiscan) infusion. INDICATIONS: Chest Pain. FINDINGS: Procedure Data: Resting HR 65 bpm Peak HR: 88 bpm Predicted Maximal HR 145 bpm Target HR: 123 bpm Percent Max Predicted HR Achieved: 60.69 % Baseline BP: 161/72 mmHg Peak BP: 146/61 mmHg Reason for Termination: Lexiscan protocol complete. Supervising Physician: The Supervising Physician is Dr. Gaytan. Resting ECG: Sinus bradycardia. PVCs. Post Pharm ECG: No diagnostic ST changes. Arrhythmia: Occasional PVCs. Cardiac Symptoms With Stress: Symptoms with stress were Dyspnea. Symptoms were resolved with rest. CONCLUSIONS: 1. Test negative for pharmacologic induced inducible ishemia by electrocardiographic criteria at maximal work load. 2. SPECT to follow and should be correlated with this study. Electronically Signed By: Chalo Gaytan MD [facility] 11/30/2024 7:28:24 AM CDT Procedure Note Chalo Gaytan MD - 11/30/2024 [place] [address] MPI Imaging Report Patient Name: AYAD SHIPMAN R : 1950 Study Date: 11/29/2024 8:30:00 AM Gender: M Tech: Location: [id number] [facility] Provider: SANTANA BANSAL Height(Cm): BSA: Weight(Kg): Heart Rate: 123 Order Provider: SANTANA BANSAL PROCEDURES: Pharmacologic SPECT Report.: Myocardial perfusion imaging with Tetrofosmin SPECT at rest and postregadenoson (Lexiscan) infusion. INDICATIONS: Chest Pain. FINDINGS: Procedure Data: Resting HR 65 bpm Peak HR: 88 bpm Predicted Maximal HR 145 bpm Target HR: 123 bpm Percent Max Predicted HR Achieved: 60.69 % Baseline BP: 161/72 mmHg Peak BP: 146/61 mmHg Reason for Termination: Lexiscan protocol complete. Supervising Physician: The Supervising Physician is Dr. Gaytan. Resting ECG: Sinus bradycardia. PVCs. Post Pharm ECG: No diagnostic ST changes. Arrhythmia: Occasional PVCs. Cardiac Symptoms With Stress: Symptoms with stress were Dyspnea. Symptoms were resolved with rest. CONCLUSIONS: 1. Test negative for pharmacologic induced inducible ishemia byelectrocardiographic criteria at maximal work load. 2. SPECT to follow and should be correlated with this study. Electronically Signed By: Chalo Gaytan MD [facility] 11/30/2024 7:28:24 AM CDT us Santana Bansal MD CV STRESS PROCEDURES Final Resu lt * NM MPI SPECT (Rest and/or Stress) Multiple Studies (11/29/2024 2:26 PM CDT) Anatomical Region Laterality Modality Body N/A Nuclear Medicine 11/29/2024 3:29 PM CDT Impressions 11/29/2024 3:46 PM CDT 1. Normal rest and pharmacologic-stress myocardial perfusion. 2. Normal left ventricular size and systolic function. 3. Three-vessel coronary artery calcification with aortic valve prosthesis. Dictated by: Cain Turner M.D. The radiology attending physician has personally reviewed this study, and had reviewed and/or edited this written report and agrees with it. Electronically signed by: Jarrett Martinez M.D. Narrative 11/29/2024 3:46 PM CDT EXAMINATION: MYOCARDIAL IMAGING (REST AND PHARMACOLOGIC-STRESS/SPECT) DATE OF STUDY: 11/29/2024 RADIOPHARMACEUTICAL: 9.1 mCi, 27.2 mCi Tc-99m tetrofosmin i.v.y HISTORY: 74-year-old patient with coronary artery disease post bypass, atrial fibrillation, stroke, diplopia presenting as a direct admission for fevers and elevated white count. Also endorsing chest pain. Evaluate for ischemia and/or myocardial infarction. The patient's body mass index (BMI) was 24.7. The electrocardiogram during infusion of the pharmacologic agent was negative for ischemia. FINDINGS: Standard myocardial perfusion images were obtained after resting tracer injection. Subsequently, an intravenous infusion of Regadenoson (0.4 mg of A2A adenosine receptor agonist Regadenoson (Lexiscan), infused intravenously over approximately 10 seconds, followed approximately after another 20 seconds by tracer infusion) was performed without low level exercise on the date indicated above. A complete description of the stress test and electrocardiographic results supervised by staff of the Cardiovascular Division is available in the [facility] electronic medical record. Standard myocardial perfusion images were obtained after tracer injection at the peak effect of the drug. Images were obtained in a supine position. COMPARISON: None The projection images were reviewed for image quality, and reveal no significant artifacts. No significant perfusion defects, either reversible or non-reversible. Gated post-stress images demonstrate normal left ventricular volume, normal left ventricular wall motion and normal ejection fraction of 49 % (normal >45%). Gated resting studies demonstrate an ejection fraction of 59%. No significant transient ischemic dilatation. Additional CT findings: Three-vessel coronary artery disease. Sternotomy. Coronary artery bypass grafting changes. Enlarged heart. Descending aortic vascular calcifications. Partially imaged intramedullary meghan in the right arm. Biatrial enlargement. Calcified splenic artery. Partially imaged left renal exophytic simple cyst. Bibasilar atelectasis with superimposed scarring in the left lung base. Procedure Note Jarrett Martinez MD - 11/29/2024 EXAMINATION: MYOCARDIAL IMAGING (REST AND PHARMACOLOGIC-STRESS/SPECT) DATE OF STUDY: 11/29/2024 RADIOPHARMACEUTICAL: 9.1 mCi, 27.2 mCi Tc-99m tetrofosmin i.v.y HISTORY: 74-year-old patient with coronary artery disease post bypass, atrial fibrillation, stroke, diplopia presenting as a direct admission for fevers and elevated white count. Also endorsing chest pain. Evaluate for ischemia and/or myocardial infarction. The patient's body mass index (BMI) was 24.7. The electrocardiogram during infusion of the pharmacologic agent was negative for ischemia. FINDINGS: Standard myocardial perfusion images were obtained after resting tracer injection. Subsequently, an intravenous infusion of Regadenoson (0.4 mg of A2A adenosine receptor agonist Regadenoson (Lexiscan), infused intravenously over approximately 10 seconds, followed approximately after another 20 seconds by tracer infusion) was performed without low level exercise on the date indicated above. A complete description of the stress test and electrocardiographic results supervised by staff of the Cardiovascular Division is available in the [facility] electronic medical record. Standard myocardial perfusion images were obtained after tracer injection at the peak effect of the drug. Images were obtained in a supine position. COMPARISON: None The projection images were reviewed for image quality, and reveal no significant artifacts. No significant perfusion defects, either reversible or non-reversible. Gated post-stress images demonstrate normal left ventricular volume, normal left ventricular wall motion and normal ejection fraction of 49 % (normal >45%). Gated resting studies demonstrate an ejection fraction of 59%. No significant transient ischemic dilatation. Additional CT findings: Three-vessel coronary artery disease. Sternotomy. Coronary artery bypass grafting changes. Enlarged heart. Descending aortic vascular calcifications. Partially imaged intramedullary meghan in the right arm. Biatrial enlargement. Calcified splenic artery. Partially imaged left renal exophytic simple cyst. Bibasilar atelectasis with superimposed scarring in the left lung base. IMPRESSION: 1. Normal rest and pharmacologic-stress myocardial perfusion. 2. Normal left ventricular size and systolic function. 3. Three-vessel coronary artery calcification with aortic valve prosthesis. Dictated by: Cain Turner M.D. The radiology attending physician has personally reviewed this study, and had reviewed and/or edited this written report and agrees with it. Electronically signed by: Jarrett Martinez M.D. Santana Bansal MD [facility] PROCEDURES Final Result * (ABNORMAL) Troponin T high-sensitivity 4-hour (11/29/2024 10:28 AM CDT) Trop T hs 25(H) <=22 ng/L Comment: Interpretive Data For further hscTnT resources including the diagnostic algorithm and an aid in interpretation, copy and paste this link: https://nrl.testcatalog.org/show/hsTrop Current Interpretive Data last revised 2020. Trop T hs delta 0 ng/L [facility] Trop T hs interp Insignificant [facility] Blood 11/29/2024 10:2 8 AM CDT 11/29/2024 10:41 AM CDT Carlos Osborn MD LAB BLOOD ORDERABLES Final Result Performing Organization Address [facility] Co de Phone Number ANUSHA DIXON [address] Department [place] [address] * (ABNORMAL) Troponin T high-sensitivity 2-hour (11/29/2024 9:02 AM CDT) Trop T hs 24(H) <=22 ng/L Comment: Interpretive Data For further hscTnT resources including the diagnostic algorithm and an aid in interpretation, copy and paste this link: https://nrl.testcatalog.org/show/hsTrop Current Interpretive Data last revised 2020. Trop T hs delta -1 ng/L [facility] Trop T hs interp Insignificant [facility] Blood 11/29/2024 9:02 AM CDT 11/29/2024 9:22 AM CDT Carlos Osborn MD LAB BLOOD ORDERABLES Final Result Performing Organization Address [facility] Co de Phone Number ANUSHA DIXON [address] Department of [employer] [place] [address] * eGFR (11/29/2024 6:13 AM CDT) eGFR >90 >=60 mL/min/1. 73 m2 Comment: Interpretive Data Reference Interval Normal >/= 90 mL/min/1.73m2 Mildly decreased* 60 - 89 mL/min/1.73m2 Mildly to moderately decreased 45 - 59 mL/min/1.73m2 Moderately to severely decreased 30 - 44 mL/min/1.73m2 Severely decreased 15 - 29 mL/min/1.73m2 Kidney Failure < 15 mL/min/1.73m2 *Relative to young adult level Estimated glomerular filtration rate is determined by the 2020 CKD-EPI equation recommended by the National Kidney Foundation (A Unifying Approach to GFR Estimation: Recommendations of the NKF-ASK Task Force on Reassessing the Inclusion of Race in Diagnosing Kidney Disease, DINORAH 2020). The CKD-EPI equation should not be used for patients with unstable renal function and has not been validated in children and those over 70. Current interpretive data was last reviewed 2021. Blood 11/29/2024 6:13 AM CDT 11/29/2024 6:22 AM CDT Leanne Dockery MD LAB BLOOD ORDERABLES Final Re sult [facility] [address] Department [place] [address] * (ABNORMAL) Basic metabolic panel (11/29/2024 6:13 AM CDT) Sodium 131(L) 135 - 145 mmol/L Potassium, pl 4.1 3.3 - 4.9 mmol/L [facility] Chloride 101 97 - 110 mmol/L [facility] CO2 20(L) 22 - 32 mmol/L [facility] Anion gap 10 2 - 15 mmol/L [facility] BUN 14 6 - 25 mg/dL [facility] Creatinine 0.71(L) 0.80 - 1.30 mg/dL [facility] Glucose 112 70 - 199 mg/dL [facility] Comment: Interpretive Data Fasting glucose >/= 126 mg/dl is diagnostic for diabetes. Fasting is defined as no caloric intake for at least 8 hours. Fasting glucose between 100 mg/dl to 125 mg/dl is diagnostic of prediabetes. In a patient with classic symptoms of hyperglycemia or hyperglycemic crisis, a random glucose >/= 200 mg/dl is diagnostic for diabetes. In the absence of unequivocal hyperglycemia, results should be confirmed by repeat testing. The classification and Diagnosis of Diabetes Diabetes Care 2021; 46: S19-S40. Current interpretive data was last revised 2022. Calcium 9.0 8.5 - 10.3 mg/dL [facility] Blood 11/29/2024 6:13 AM CDT 11/29/2024 6:22 AM CDT Leanne Dockery MD LAB BLOOD ORDERABLES Final Re sult Performing Organization Address [facility] Co de Phone Number ANUSHA DIOXN [address] Department of Laboratories [place], [place] [id number] * (ABNORMAL) CBC without differential (11/29/2024 6:13 AM CDT) Pathologist [facility] WBC 12.20(H) 3.80 - 9.90 K/cumm Hgb 10.5(L) 13.0 - 17.5 g/dL [facility] Hct 32.6(L) 38.9 - 50.3 % [facility] Plt 321 150 - 400 K/cumm [facility] MPV 9.5 9.1 - 12.3 fL [facility] RBC 3.65(L) 4.30 - 5.80 M/cumm [facility] MCV 89.3 81.3 - 96.4 fL [facility] MCH 28.8 27.1 - 33.3 pg [facility] MCHC 32.2(L) 32.3 - 35.7 g/dL [facility] RDW CV 14.1 11.1 - 14.9 % [facility] RDW SD 46.3 35.7 - 48.1 fL [facility] NRBC abs 0.00 0.00 - 0.01 K/cumm [facility] Blood 11/29/2024 6:13 AM CDT 11/29/2024 6:25 AM CDT Leanne Dockery MD LAB BLOOD ORDERABLES Final Re sult Performing Organization Address [facility] Co de Phone Number ANUSHA DIXON [address] Department of [employer] [place] [address] * (ABNORMAL) Troponin T high-sensitivity series (baseline, 2hr, 4hr, 6hr) (11/29/2024 6:13 AM CDT) Pathologist [facility] Trop T hs 25(H) <=22 ng/L Comment: Interpretive Data For further hscTnT resources including the diagnostic algorithm and an aid in interpretation, copy and paste this link: [email or web address].testcatalog.org/[email or web address] Current Interpretive Data last revised 2020. Blood 11/29/2024 6:13 AM CDT 11/29/2024 6:22 AM CDT Carlos Osborn MD LAB [place]LOOD [place] [address] [facility] Department [place] [address] * XR Chest 1 View (11/28/2024 10:11 AM CDT) Anatomical Region Laterality Modality Body, Chest N/A Computed Radiogr aphy 11/28/2024 10:1 3 AM CDT Impressions 11/28/2024 10:13 AM CDT Cardiomegaly. No active disease. Electronically signed by: Yordan Dai M.D. Narrative 11/28/2024 10:13 AM CDT EXAMINATION: XR CHEST 1 VIEW DATE: 11/28/2024 10:00 AM HISTORY: Shortness of breath heart disease FINDINGS:Compared with the study of 11/25/2024, postsurgical changes in the heart and mediastinum with cardiomegaly. No failure fluid infiltrates or pneumothorax. Right shoulder arthroplasty Procedure Note Yordan Dai MD - 11/28/2024 EXAMINATION: XR CHEST 1 VIEW DATE: 11/28/2024 10:00 AM HISTORY: Shortness of breath heart disease FINDINGS:Compared with the study of 11/25/2024, postsurgical changes in the heart and mediastinum with cardiomegaly. No failure fluid infiltrates or pneumothorax. Right shoulder arthroplasty IMPRESSION: Cardiomegaly. No active disease. Electronically signed by: Yordan Dai M.D. Carlos Osborn MD IMG XR PROCEDURES Fi nal Result * ECG 12 lead (11/28/2024 9:39 AM CDT) 11/28/2024 9:39 AM CDT Narrative [facility] - 11/28/2024 12:53 PM CDT Vent Rate: 51 bpm RR Interval: 1162 msec IA Interval: 258 msec QRS Duration: 118 msec QT Interval: 442 msec QTC Interval: 419 msec P-R-T [place]: -76 - 2 - 21 degrees IMPRESSION: SINUS BRADYCARDIA WITH FIRST DEGREE AV BLOCK WITH OCCASIONAL SUPRAVENTRICULAR PREMATURE COMPLEXES SEPTAL MYOCARDIAL INFARCTION , OF INDETERMINATE AGE [40+ ms Q WAVE IN V1/V2] ABNORMAL ECG NO CHANGE FROM PREVIOUS TRACING NOTED Electronically Signed By: Murphy Gaitan MD us Carlos Osborn MD ECG ORDERABLES Julee l Result [facility] * eGFR (11/28/2024 9:37 AM CDT) eGFR >90 >=60 mL/min/1. 73 m2 Comment: Interpretive Data Reference Interval Normal >/= 90 mL/min/1.73m2 Mildly decreased* 60 - 89 mL/min/1.73m2 Mildly to moderately decreased 45 - 59 mL/min/1.73m2 Moderately to severely decreased 30 - 44 mL/min/1.73m2 Severely decreased 15 - 29 mL/min/1.73m2 Kidney Failure < 15 mL/min/1.73m2 *Relative to young adult level Estimated glomerular filtration rate is determined by the 2020 CKD-EPI equation recommended by the National Kidney Foundation (A Unifying Approach to GFR Estimation: Recommendations of the NKF-ASK Task Force on Reassessing the Inclusion of Race in Diagnosing Kidney Disease, JASN 2020). The CKD-EPI equation should not be used for patients with unstable renal function and has not been validated in children and those over 70. Current interpretive data was last reviewed 2021. Blood 11/28/2024 9:37 AM CDT 11/28/2024 10:36 AM CDT us Leanne Dockery MD LAB BLOOD ORDERABLES Final Re sult AN[facility]HA [address] Department [place] [address] * (ABNORMAL) Basic metabolic panel (11/28/2024 9:37 AM CDT) Sodium 131(L) 135 - 145 mmol/L Potassium, pl 3.8 3.3 - 4.9 mmol/L [facility] Chloride 100 97 - 110 mmol/L [facility] CO2 21(L) 22 - 32 mmol/L [facility] Anion gap 10 2 - 15 mmol/L [facility] BUN 16 6 - 25 mg/dL [facility] Creatinine 0.74(L) 0.80 - 1.30 mg/dL [facility] Glucose 104 70 - 199 mg/dL [facility] Comment: Interpretive Data Fasting glucose >/= 126 mg/dl is diagnostic for diabetes. Fasting is defined as no caloric intake for at least 8 hours. Fasting glucose between 100 mg/dl to 125 mg/dl is diagnostic of prediabetes. In a patient with classic symptoms of hyperglycemia or hyperglycemic crisis, a random glucose >/= 200 mg/dl is diagnostic for diabetes. In the absence of unequivocal hyperglycemia, results should be confirmed by repeat testing. The classification and Diagnosis of Diabetes Diabetes Care 2021; 46: S19-S40. Current interpretive data was last revised 2022. Calcium 8.9 8.5 - 10.3 mg/dL [facility] Blood 11/28/2024 9:37 AM CDT 11/28/2024 10:36 AM CDT us Leanne Dockery MD LAB BLOOD ORDERABLES Final Re sult [facility] [address] Department [place] [address] * (ABNORMAL) CBC without differential (11/28/2024 9:37 AM CDT) WBC 20.83(H) 3.80 - 9.90 K/cumm Hgb 10.6(L) 13.0 - 17.5 g/dL [facility] Hct 32.7(L) 38.9 - 50.3 % [facility] Plt 298 150 - 400 K/cumm [facility] MPV 9.8 9.1 - 12.3 fL [facility] RBC 3.65(L) 4.30 - 5.80 M/cumm [facility] MCV 89.6 81.3 - 96.4 fL [facility] MCH 29.0 27.1 - 33.3 pg [facility] MCHC 32.4 32.3 - 35.7 g/dL [facility] RDW CV 14.1 11.1 - 14.9 % [facility] RDW SD 46.5 35.7 - 48.1 fL [facility] NRBC abs 0.00 0.00 - 0.01 K/cumm [facility] Blood 11/28/2024 9:37 AM CDT 11/28/2024 10:37 AM CDT us Leanne Dockery MD LAB BLOOD ORDERABLES Final Re sult [facility] [address] Department [place] [address] * Respiratory pathogen panel Nasopharyngeal (11/27/2024 3:27 PM CDT) Pathologist [facility] Influenza A RNA Not Detected Not Detected Influenza B RNA Not Detected Not Detected [facility] RSV RNA Not Detected Not Detected [facility] COVID-19 RNA Not Detected Not Detected [facility] Coronavirus 229E RNA Not Detected Not Detected [facility] Coronavirus HKU1 RNA Not Detected Not Detected [facility] Coronavirus NL63 RNA Not Detected Not Detected [facility] Coronavirus OC43 RNA Not Detected Not Detected [facility] Adenovirus DNA Not Detected Not Detected [facility] Metapneumovirus RNA Not Detected Not Detected [facility] Rhinovirus/Enterov irus RNA Not Detected Not Detected [facility] Parainfluenza 1 RNA Not Detected Not Detected [facility] Parainfluenza 2 RNA Not Detected Not Detected [facility] Parainfluenza 3 RNA Not Detected Not Detected [facility] Parainfluenza 4 RNA Not Detected Not Detected [facility] B. pertussis DNA Not Detected Not Detected [facility] B. parapertussis DNA Not Detected Not Detected [facility] C. pneumoniae DNA Not Detected Not Detected [facility] M. pneumoniae DNA Not Detected Not Detected [facility] Comment: Interpretive Data The [employer] FilmArray Respiratory Panel (RP2.1) assay is a multiplexed real-time PCR based nucleic acid test capable of simultaneous qualitative detection and identification of multiple respiratory viral and bacterial nucleic acids, including SARS Coronavirus 2 (the causative agent of COVID-19). The following bacteria, viruses and virus subtypes can be identified using the FilmArray RP2.1 assay: Bordetella pertussis, Bordetella parapertussis, Chlamydia pneumoniae, Mycoplasma pneumoniae, Adenovirus, SARS Coronavirus 2, seasonal coronaviruses (Coronavirus HKU1, Coronavirus NL63, Coronavirus 229E, and Coronavirus OC43), Influenza A, Influenza A subtype H1, Influenza A subtype H3, Influenza A subtype 2009 H1, Influenza B, Metapneumovirus, Parainfluenza 1, Parainfluenza 2, Parainfluenza 3, Parainfluenza 4, RSV, Rhinovirus/Enterovirus. Due to the genetic similarity between human Rhinovirus and Enterovirus, the FilmArray RP2.1 assay cannot reliably differentiate them. Coronavirus OC43 may cross-react with some isolates of Coronavirus HKU1. A dual positive result may be due to cross-reactivity or may indicate a co- infection. The detection and identification of specific viral and bacterial nucleic acids from individuals exhibiting signs and symptoms of a respiratory infection aids in the diagnosis of respiratory infection if used in conjunction with other clinical and epidemiological information. The results of this test should not be used as the sole basis for diagnosis, treatment, or other management decisions. Negative results in the setting of a respiratory illness may be due to infection with pathogens that are not detected by this test. Positive results do not rule out infection/co-infection with other organisms. The agent(s) detected by the FilmArray RP2.1 may not be the definite cause of disease. Additional testing (lab, imaging, etc.) may be necessary when evaluating a patient with possible respiratory tract infection. The FilmArray RP2.1 assay has FDA clearance for testing of [employer] swabs. The performance characteristics of this assay have been determined by [facility]. Current interpretive data was last revised on 2020. Nasopharyngeal 11/27/2024 3: 27 PM CDT 11/27/2024 3:40 PM CDT [facility] 11/27/2024 4:42 PM CDT Is the Patient experiencing symptoms consistent with COVID?->Yes Surveillance testing for transplant patient?->No Rickie Chew MD LAB MICROBIOLOGY - GENERAL ORDE RABLES Final Result Performing Organization Address [facility]/ZIP Co de Phone Number ANUSHA DIXON [address] Department of [employer] [place], [place] [id number] CH * Blood culture Blood (11/27/2024 11:41 AM CDT) Report Final Report: No growth Comment:Testing performed by : [facility], [address] [place]., [address] Blood 11/27/2024 11:4 1 AM CDT 11/27/2024 1:49 PM CDT Abbey TAVARES - 12/01/2024 4:00 PM CDT From a different site than #1. Collection->Peripheral 1. Blood cultures are incubated for 4 days on a continuously monitored blood culture system. The first report of a negative culture is issued within 24 hours of receipt of the specimen in the laboratory. 2. Positive culture results are reported as soon as they are detected. 3. The most important factor for detection of microbes in the setting of bloodstream infection is the volume of blood submitted for culture. Failure to collect an optimal blood volume can result in false negative blood cultures. 4. For pediatric patients, the recommended blood volume to collect follows a weight based strategy. See the electronic test catalog for collection instructions. 5. For positive blood cultures, a rapid molecular test may be performed for organism identification using the gabe ePlex blood culture identification panel for gram positive (BCID-GP) and gram negative (BCID-GN) organisms. This nucleic acid amplification test detects microbial DNA in positive blood culture broth. This assay has been cleared by the [place] Food and Drug Administration and its performance characteristics have been verified by the [facility]. For questions about this culture, contact the Microbiology Laboratory at [phone]. Interpretive data was last revised on 24. Leanne Dockery MD LAB MICROBIOLOGY - GENERAL OR DERABLES Final Result Performing Organization Address [facility]/ZIP Co de Phone Number ANUSHA DIXON [address] Department [place] [place] [address] * Blood culture Blood (11/27/2024 11:41 AM CDT) Report Final Report: No growth Comment:Testing performed by : [facility], [address] [place]., [address] Blood 11/27/2024 11:4 1 AM CDT 11/27/2024 1:49 PM CDT Abbey TAVARES [facility] - 12/01/2024 4:00 PM CDT Collection->Peripheral 1. Blood cultures are incubated for 4 days on a continuously monitored blood culture system. The first report of a negative culture is issued within 24 hours of receipt of the specimen in the laboratory. 2. Positive culture results are reported as soon as they are detected. 3. The most important factor for detection of microbes in the setting of bloodstream infection is the volume of blood submitted for culture. Failure to collect an optimal blood volume can result in false negative blood cultures. 4. For pediatric patients, the recommended blood volume to collect follows a weight based strategy. See the electronic test catalog for collection instructions. 5. For positive blood cultures, a rapid molecular test may be performed for organism identification using the gabe ePlex blood culture identification panel for gram positive (BCID-GP) and gram negative (BCID-GN) organisms. This nucleic acid amplification test detects microbial DNA in positive blood culture broth. This assay has been cleared by the [place] Food and Drug Administration and its performance characteristics have been verified by the [facility]. For questions about this culture, contact the Microbiology Laboratory at [phone]. Interpretive data was last revised on 24. Leanne Dockery MD LAB MICROBIOLOGY - GENERAL OR DERABLES Final Result ANUSHA DIXON [address] Department [place] [address] documented in this encounter Visit Diagnoses Diagnosis Fever and chills- Primary Fever, unspecified Hyperlipidemia Other and unspecified hyperlipidemia Essential hypertension Unspecified essential hypertension Moderate protein-calorie malnutrition Hyperlipidemia Other and unspecified hyperlipidemia Essential hypertension Unspecified essential hypertension Hyperlipidemia Other and unspecified hyperlipidemia Essential hypertension Unspecified essential hypertension documented in this encounter Admitting Diagnoses Diagnosis Fever and chills Fever, unspecified Hyperlipidemia Other and unspecified hyperlipidemia Essential hypertension Unspecified essential hypertension documented in this encounter Administered Medications Inactive Administered Medications - up to 3 most recent administrations Medication Order MAR Action Action Date Dose Rate Site acetaminophen (TYLENOL) tablet 650 mg 650 mg, oral, Every 6 hours PRN, 1st line for pain, Starting on Thu11/27/24 at 0952 Given 12/08/2024 6:27 PM CDT 650 mg Given 12/08/2024 5:59 AM CDT 650 mg Given 12/07/2024 9:07 PM CDT 650 mg amLODIPine (NORVASC) tablet 5 mg 5 mg, oral, Daily, First dose on Thu12/02/24 at 1315 Given 12/05/2024 8:14 AM CDT 5 mg Given 12/04/2024 8:52 AM CDT 5 mg Given 12/03/2024 9:17 AM CDT 5 mg apixaban (ELIQUIS) tablet 5 mg 5 mg, oral, 2 times daily, First dose on Thu11/27/24 at 2100, Nurse to discontinue heparin infusion order and associated bolus at first administration of apixaban using o rder condition met order source, Indications: .Indications:. Given 12/09/2024 8:59 AM CDT 5 mg Given 12/08/2024 9:48 PM CDT 5 mg Given 12/05/2024 8:15 AM CDT 5 mg artificial tears (ynczwkk-qfwkhdrokdqt-uepsiloy) (GENTEAL TEARS MODERATE) 0.1-0.3-0.2 % ophthalmic solution 1 drop 1 drop, each eye, 4 times daily PRN, dry eyes, Starting on 11/27/24 at 1955 Given 12/07/2024 8:27 AM CDT 1 drop Given 12/04/2024 8:57 AM CDT 1 drop Given 12/03/2024 9:23 AM CDT 1 drop aspirin enteric coated tablet 81 mg 81 mg, oral, Daily, First dose on 11/27/24 at 1030, Do not crush, chew, cut, dissolve, open or otherwise manipulate tablet/capsule. Given 11/28/2024 9:22 AM CDT 81 mg atorvastatin (LIPITOR) tablet 80 mg 80 mg, oral, Every morning, First dose on Thu11/28/24 at 0900 Given 12/09/2024 8:59 AM CDT 80 mg Given 12/08/2024 9:21 AM CDT 80 mg Given 12/07/2024 8:09 AM CDT 80 mg bisacodyL (DULCOLAX) suppository 10 mg 10 mg, rectal, Once, On Thu12/09/24 at 1130, For 1 dose, Indications: constipationIndications:constipati on Given 12/09/2024 11:25 AM CDT 10 mg calcium carbonate (TUMS) chewable tablet 1,000 mg 1,000 mg (400 mg of elemental calcium), oral, Every 4 hours PRN, heartburn, Starting on Melania 12/08/24 at 1812 Given 12/08/2024 6:25 PM CDT 1,000 mg ceFAZolin (ANCEF) 1 gram/10 mL in sterile water (premix) 1,000 mg 1,000 mg, intravenous, at 200 mL/hr, Administer over 3 Minutes, Every 8 hours, First dose on Thu12/07/24 at 1800, For 2 doses, Start 8 hours after pre-op dose., Indications: Prophylaxis, SurgicalIndications:Prophylaxis, Surgical Given 12/08/2024 1:12 AM CDT 1,000 mg 200 mL/hr Given 12/07/2024 5:48 PM CDT 1,000 mg 200 mL/hr cefepime (MAXIPIME) 2,000 mg in sodium chloride 0.9% 100 mL IVPB 2,000 mg, intravenous, at 220 mL/hr, Administer over 30 Minutes, Every 8 hours scheduled, First dose on Thu11/27/24 at 1400, Mini-Bag Plus bag, Indications: SepsisIndications:Sepsis New Bag 11/30/2024 1:27 PM CDT 2,000 mg 220 mL /hr New Bag 11/30/2024 4:31 AM CDT 2,000 mg 220 mL/hr New Bag 11/29/2024 9:19 PM CDT 2,000 mg 220 mL/hr cetirizine (ZyrTEC) tablet 10 mg 10 mg, oral, Every morning, First dose on Thu11/27/24 at 1030, Indications: Allergic RhinitisIndications:Allergic Rhinitis Given 12/09/2024 8:59 AM CDT 10 mg Given 12/08/2024 9:21 AM CDT 10 mg Given 12/07/2024 8:12 AM CDT 10 mg clopidogreL (PLAVIX) tablet 75 mg 75 mg, oral, Daily, First dose on 11/28/24 at 1045 Given 12/09/2024 1:21 PM CDT 75 mg Given 12/07/2024 8:08 AM CDT 75 mg Given 12/06/2024 9:10 AM CDT 75 mg dilTIAZem XR (CARDIZEM CD,DILACOR XR) 24 hour capsule 240 mg 240 mg, oral, Daily, First dose on Melania 12/08/24 at 1030, Do not crush, chew, cut, dissolve, open or otherwise manipulate tablet/capsule. Given 12/09/2024 8:59 AM CDT 240 mg Given 12/08/2024 10:46 AM CDT 240 mg docusate sodium (COLACE) capsule 100 mg 100 mg, oral, 2 times daily PRN, constipation, Starting on Thu11/27/24 at 2207, Indications: constipationIndications:constipation Given 12/08/2024 6:25 PM CDT 100 mg Given 12/03/2024 9:08 PM CDT 100 mg Given 12/02/2024 9:33 PM CDT 100 mg ezetimibe (ZETIA) tablet 10 mg 10 mg, oral, Daily, First dose on Thu11/27/24 at 1030 Given 12/09/2024 8:59 AM CDT 10 mg Given 12/08/2024 9:20 AM CDT 10 mg Given 12/07/2024 8:08 AM CDT 10 mg famotidine (PEPCID) tablet 20 mg 20 mg, oral, 2 times daily, First dose on Thu11/27/24 at 2245 Given 12/09/2024 8:59 AM CDT 20 mg Given 12/08/2024 9:48 PM CDT 20 mg Given 12/08/2024 9:21 AM CDT 20 mg ferrous sulfate delayed release tablet 65 mg of elemental iron 65 mg of elemental iron, oral, 2 times daily with meals (bkfst, dinner), First dose on Thu11/27/24 at 1800, 325 MG OF FERROUS SULFATE = 65 MG OF ELEMENTAL IRON Given 12/09/2024 5:16 PM CDT 65 mg of elemental i trena Given 12/09/2024 8:59 AM CDT 65 mg of elemental iron Given 12/08/2024 5:36 PM CDT 65 mg of elemental iron fluticasone propionate (FLONASE) 50 mcg/actuation nasal spray 1 spray 1 spray, each nostril, Every morning, First dose on Thu11/28/24 at 0900, Indications: Allergic RhinitisIndications:Allergic Rhinitis Given 12/09/2024 9:00 AM CDT 1 spray Given 12/08/2024 9:29 AM CDT 1 spray Given 12/07/2024 8:27 AM CDT 1 spray folic acid (FOLVITE) tablet 1 mg 1 mg, oral, Daily, First dose on Thu11/27/24 at 1030, Each tablet contains 1 mg of folic acid (1.67 mg DFE). Given 12/09/2024 8:59 AM CDT 1 mg Given 12/08/2024 9:20 AM CDT 1 mg Given 12/07/2024 8:08 AM CDT 1 mg hydrOXYzine (ATARAX) tablet 25 mg 25 mg, oral, Every 4 hours PRN, itching, allergies, anxiety, Insomnia, Starting on Melania 12/01/24 at 2201 Given 12/07/2024 10:54 PM CDT 25 mg Given 12/05/2024 12:24 PM CDT 25 mg Given 12/04/2024 9:53 PM CDT 25 mg lisinopriL (PRINIVIL,ZESTRIL) tablet 10 mg 10 mg, oral, Daily, First dose on 11/28/24 at 0900 Given 12/02/2024 8:40 AM CDT 10 mg Given 12/01/2024 8:15 AM CDT 10 mg Given 11/30/2024 9:19 AM CDT 10 mg lisinopriL (PRINIVIL,ZESTRIL) tablet 20 mg 20 mg, oral, Daily, First dose (after last modification) on 12/03/24 at 0900 Given 12/09/2024 9:00 AM CDT 20 mg Given 12/08/2024 9:21 AM CDT 20 mg Given 12/07/2024 8:08 AM CDT 20 mg magnesium oxide (MAG-OX) tablet 400 mg 400 mg, oral, 2 times daily, First dose on Thu11/27/24 at 1030, 1 tablet = Magnesium oxide 400 mg = 241.3 mg elemental magnesium Given 12/09/2024 8:5 9 AM CDT 400 mg Given 12/08/2024 9:48 PM CDT 400 mg Given 12/08/2024 9:20 AM CDT 400 mg megestrol (MEGACE) 40 mg/mL oral suspension 400 mg 400 mg, oral, Daily, First dose on Thu12/05/24 at 1045 Given 12/09/2024 8:59 AM CDT 400 mg Given 12/08/2024 9:20 AM CDT 400 mg Given 12/07/2024 8:10 AM CDT 400 mg metoprolol tartrate (LOPRESSOR) immediate release tablet 12.5 mg 12.5 mg, oral, 2 times daily, First dose on Thu12/03/24 at 2100 Given 12/07/2024 8:25 AM CDT 12.5 mg Given 12/06/2024 9:10 AM CDT 12.5 mg Given 12/05/2024 8:37 PM CDT 12.5 mg metoprolol tartrate (LOPRESSOR) immediate release tablet 25 mg 25 mg, oral, 2 times daily, First dose on Thu11/27/24 at 1030 Given 12/01/2024 8:15 AM CDT 25 mg Given 11/30/2024 9:19 AM CDT 25 mg Given 11/29/2024 9:16 PM CDT 25 mg metoprolol tartrate (LOPRESSOR) immediate release tablet 25 mg 25 mg, oral, 2 times daily, First dose on Thu12/07/24 at 1245 Given 12/08/2024 9:20 AM CDT 25 mg ondansetron (ZOFRAN) injection 4 mg 4 mg, intravenous, Administer over 2 Minutes, Every 4 hours PRN, nausea, vomiting, Starting on Thu11/27/24 at 0952 Given 11/30/2024 8:32 PM CDT 4 mg oxyCODONE-acetaminophen (PERCOCET) 5-325 mg per tablet 1 tablet 1 tablet, oral, Every 4 hours PRN, 2nd line for pain, Starting on Thu12/07/24 at 1213, Indications: PainIndications:Pain polyethylene glycol (MIRALAX) packet 17 g 17 g, oral, Daily, First dose on Thu12/09/24 at 1130, Indications: constipationIndications:constipation Given 12/09/2024 11:25 AM CDT 17 g potassium chloride ER (KLOR-CON) extended release tablet 20 mEq 20 mEq, oral, 2 times daily, First dose on Thu12/06/24 at 1400, Do not crush, chew, cut, dissolve, open or otherwise manipulate tablet/capsule. Given 12/09/2024 8:59 AM CDT 20 mEq Given 12/08/2024 9:48 PM CDT 20 mEq Given 12/08/2024 9:21 AM CDT 20 mEq ramelteon (ROZEREM) tablet 8 mg 8 mg, oral, Nightly PRN, sleep, Starting on Thu11/27/24 at 2208, Indications: Sleep-Onset InsomniaIndications:Sleep-Onset Insomnia Given 12/04/2024 9:53 PM CDT 8 m g Given 12/03/2024 9:20 PM CDT 8 mg Given 11/29/2024 9:16 PM CDT 8 mg regadenoson (LEXISCAN) 0.4 mg/5 mL injection 0.4 mg 0.4 mg, intravenous, Once, On Thu11/29/24 at 1315, For 1 dose, Intra-Procedure (CV), Administer IV push over 10 seconds., Indications: Myocardial Perfusion Imaging AdjunctIndications:Myocardial Perfusion Imaging Adjunct Given 11/29/2024 1:08 PM CDT 0.4 mg sodium chloride 0.9% bolus 500 mL 500 mL, intravenous, at 250 mL/hr, Administer over 2 Hours, Once, On Thu12/05/24 at 1700, For 1 dose New Bag 12/05/2024 4:32 PM CDT 500 mL 250 mL/hr sodium chloride 0.9% flush 10 mL 10 mL, intravenous, As needed, line care, Starting on Thu11/29/24 at 1233, Intra-Procedure (CV) Given 11/29/2024 1:08 PM CDT 10 mL tamsulosin (FLOMAX) extended release capsule 0.4 mg 0.4 mg, oral, Daily with dinner, First dose on Thu11/27/24 at 1800, Do not crush, chew, cut, dissolve, open or otherwise manipulate tablet/capsule. Given 12/09/2024 5:16 PM CDT 0.4 mg Given 12/08/2024 5:36 PM CDT 0.4 mg Given 12/07/2024 5:09 PM CDT 0.4 mg tc-99m tetrofosmin (MYOVIEW) injection 27.2 millicurie 27.2 millicurie, intravenous, Once in imaging, radiopharmaceutical, Starting on Thu11/29/24 at 1313, For 1 dose, Indications: Diagnostic RadiographyIndications:Diagnostic Radiography Given 11/29/2024 1:08 PM CDT 27.2 millicuries tc-99m tetrofosmin (MYOVIEW) injection 9.1 millicurie 9.1 millicurie, intravenous, Once in imaging, radiopharmaceutical, Starting on Thu11/29/24 at 1141, For 1 dose, Indications: Diagnostic RadiographyIndications:Diagnostic Radiography Given 11/29/2024 11:32 AM CDT 9.1 millicuries thiamine (VITAMIN B-1) tablet 100 mg 100 mg, oral, Daily, First dose on Thu11/27/24 at 1030 Given 12/09/2024 8:59 AM CDT 100 mg Given 12/08/2024 9:21 AM CDT 100 mg Given 12/07/2024 8:08 AM CDT 100 mg vancomycin 1,000 mg/200 mL in dextrose 5% (premix) 1,000 mg 1,000 mg (rounded from 1,065 mg = 15 mg/kg 71 kg), intravenous, at 200 mL/hr, Administer over 60 Minutes, Every 24 hours scheduled, First dose on Thu11/28/24 at 0600, Indications: SepsisIndications:Sepsis New Bag 11/28/2024 5:28 AM CDT 1,000 mg 200 mL /hr documented in this encounter Discontinued Medications Medication Sig Discontinue Reason Start Date End Da te cetirizine (ZyrTEC) 10 mg tabletIndications:All ergic Rhinitis Take 1 tablet (10 mg total) by mouth every morning 12/09/2024 fluticasone propionate (FLONASE) 50 mcg/actuation nasal sprayIndications:Aditya rgic Rhinitis Administer 1 spray into each nostril every morning 10/02/2021 12/09/2024 ezetimibe (ZETIA) 10 mg tablet Take 1 tablet (10 mg total) by mouth daily 10/13/2023 12/09/2024 folic acid (FOLVITE) 1 mg tablet Take 1 tablet (1 mg total) by mouth daily 12/09/2024 thiamine (VITAMIN B1) 100 mg tablet Take 1 tablet (100 mg total) by mouth daily 12/09/2024 tamsulosin (FLOMAX) 0.4 mg extended release capsule Take 1 capsule (0.4 mg total) by mouth daily with dinner 12/09/2024 atorvastatin (LIPITOR) 80 mg tablet Take 1 tablet (80 mg total) by mouth every morning Stop Taking at Discharge 05/04/2023 12/09/2024 ferrous sulfate (iron) 325 mg (65 mg of elemental iron) tablet Stop Taking at Discharge 01/10/2021 12/09/2024 magnesium oxide (MAG-OX) 400 mg (241.3 mg elemental magnesium) tablet Take 1 tablet every day by oral route. Stop Taking at Discharge 12/09/2024 lisinopriL (PRINIVIL,ZESTRIL) 10 mg tablet Take 1 tablet (10 mg total) by mouth daily Stop Taking at Discharge 02/26/2024 12/09/2024 metoprolol tartrate (LOPRESSOR) 25 mg immediate release tablet TAKE 1 (ONE) TABLET BY MOUTH 2 TIMES DAILY Stop Taking at Discharge 06/21/2024 12/09/2024 Eliquis 5 mg tablet Take 1 tablet (5 mg total) by mouth 2 (two) times a day Stop Taking at Discharge 06/21/2024 12/09/2024 aspirin 81 mg enteric coated tablet Take 1 tablet (81 mg total) by mouth daily Stop Taking at Discharge 12/09/2024 documented as of this encounter Active and Recently Administered Medications Times are shown in CDT. Scheduled Medication Order 12/07/2024 12/08/2024 12/09/2024 apixaban (ELIQUIS) tablet 5 mg 5 mg, oral, 2 times daily, First dose on 11/27/24 at 2100, Nurse to discontinue heparin infusion order and associated bolus at first administration of apixaban using o rder condition met order source, Indications: . 0900 (Hold - Provider: Steffanie Elias RN - Reason: See Provider Order)2100 (Not Given - Provider: Baldemar Feliciano - Reason: Other) 0900 (Not Given - Provider: Ceci Back RN - Reason: See Provider Order)0951 (Unheld by Provider - Provider: Rosa Agrawal NP)2148 (Given - Provider: Baldemar Feliciano) 0859 (Given - Provider: Alejo Hogan RN)0914 (Held by Provider - Provider: Sage Tillman MD - Reason: Change in Patient Status)1022 (Unheld by Provider - Provider: Rosa Agrawal NP) atorvastatin (LIPITOR) tablet 80 mg 80 mg, oral, Every morning, First dose on Thu11/28/24 at 0900 0809 (Given - Provider: Steffanie Elias RN) 0921 (Given - Provider: Ceci Back RN) 0859 (Given - Provider: Alejo Hogan RN) bisacodyL (DULCOLAX) suppository 10 mg (COMPLETED) 10 mg, rectal, Once, On Thu12/09/24 at 1130, For 1 dose, Indications: constipation 1125 (Given - Provider: Alejo Hogan RN) ceFAZolin (ANCEF) 1 gram/10 mL in sterile water (premix) 1,000 mg (COMPLETED) 1,000 mg, intravenous, at 200 mL/hr, Administer over 3 Minutes, Every 8 hours, First dose on Thu12/07/24 at 1800, For 2 doses, Start 8 hours after pre-op dose., Indications: Prophylaxis, Surgical 1748 (Given - Provider: Steffanie Elias RN) 0112 (Given - Provider: Baldemar Feliciano) cetirizine (ZyrTEC) tablet 10 mg 10 mg, oral, Every morning, First dose on Thu11/27/24 at 1030, Indications: Allergic Rhinitis 0812 (Given - Provider: Steffanie Elias RN) 0921 (Given - Provider: Ceci Back, CHARAN) 0859 (Given - Provider: Alejo Hogan, CHARAN) clopidogreL (PLAVIX) tablet 75 mg 75 mg, oral, Daily, First dose on Thu11/28/24 at 1045 0808 (Given - Provider: Steffanie Elias RN)1158 (Held by Provider - Provider: Sage Tillman MD - Reason: Change in Patient Status) 0900 (Not Given - Provider: Ceci Back RN - Reason: See Provider Order) 1022 (Unheld by Provider - Provider: Rosa Agrawal NP)1321 (Given - Provider: Alejo Hogan, CHARAN) dilTIAZem XR (CARDIZEM CD,DILACOR XR) 24 hour capsule 240 mg 240 mg, oral, Daily, First dose on Melania 12/08/24 at 1030, Do not crush, chew, cut, dissolve, open or otherwise manipulate tablet/capsule. 1046 (Given - Provider: Ceci Back RN) 0859 (Given - Provider: Alejo Hogan RN) ezetimibe (ZETIA) tablet 10 mg 10 mg, oral, Daily, First dose on 11/27/24 at 1030 0808 (Given - Provider: Steffanie Elias RN) 0920 (Given - Provider: Ceci Back RN) 0859 (Given - Provider: Alejo Hogan RN) famotidine (PEPCID) tablet 20 mg 20 mg, oral, 2 times daily, First dose on 11/27/24 at 2245 0809 (Given - Provider: Steffanie Elias RN)2107 (Given - Provider: Baldemar Feliciano) 0921 (Given - Provider: Ceci Back RN)2148 (Given - Provider: Baldemar Feliciano) 0859 (Given - Provider: Alejo Hogan RN) ferrous sulfate delayed release tablet 65 mg of elemental iron 65 mg of elemental iron, oral, 2 times daily with meals (bkfst, dinner), First dose on 11/27/24 at 1800, 325 MG OF FERROUS SULFATE = 65 MG OF ELEMENTAL IRON 0808 (Given - Provider: Steffanie Elias RN)1709 (Given - Provider: Steffanie Elias RN) 0921 (Given - Provider: Ceci Back RN)1736 (Given - Provider: Ceci Back RN) 0859 (Given - Provider: Alejo Hogan RN)1716 (Given - Provider: Alejo Hogan RN) fluticasone propionate (FLONASE) 50 mcg/actuation nasal spray 1 spray 1 spray, each nostril, Every morning, First dose on 11/28/24 at 0900, Indications: Allergic Rhinitis 0827 (Given - Provider: Steffanie Elias RN) 0929 (Given - Provider: Ceci Back RN) 0900 (Given - Provider: Alejo Hogan RN) folic acid (FOLVITE) tablet 1 mg 1 mg, oral, Daily, First dose on 11/27/24 at 1030, Each tablet contains 1 mg of folic acid (1.67 mg DFE). 0808 (Given - Provider: Steffanie Elias RN) 0920 (Given - Provider: Ceci Back RN) 0859 (Given - Provider: Alejo Hogan RN) lisinopriL (PRINIVIL,ZESTRIL) tablet 20 mg 20 mg, oral, Daily, First dose (after last modification) on Thu12/03/24 at 0900 0808 (Given - Provider: Steffanie Elias RN) 0921 (Given - Provider: Ceci Back RN) 0900 (Given - Provider: Alejo Hogan RN) magnesium oxide (MAG-OX) tablet 400 mg 400 mg, oral, 2 times daily, First dose on 11/27/24 at 1030, 1 tablet = Magnesium oxide 400 mg = 241.3 mg elemental magnesium 0808 (Given - Provider: Steffanie Elias RN)2107 (Given - Provider: Baldemar Feliciano) 0920 (Given - Provider: Ceci Back, CHARAN)2148 (Given - Provider: Baldemar Feliciano) 0859 (Given - Provider: Alejo Hogan RN) megestrol (MEGACE) 40 mg/mL oral suspension 400 mg 400 mg, oral, Daily, First dose on 12/05/24 at 1045 0810 (Given - Provider: Steffanie Elias RN) 0920 (Given - Provider: Ceci Back RN) 0859 (Given - Provider: Alejo Hogan RN) metoprolol tartrate (LOPRESSOR) immediate release tablet 12.5 mg (CANCELED) 12.5 mg, oral, 2 times daily, First dose on Thu12/03/24 at 2100 0825 (Given - Provider: Steffanie Elias RN) metoprolol tartrate (LOPRESSOR) immediate release tablet 25 mg (CANCELED) 25 mg, oral, 2 times daily, First dose on Thu12/07/24 at 1245 1235 (Not Given - Provider: Steffanie Elias RN - Reason: Other - Comment: administered this AM)2107 (Not Given - Provider: Baldemar Feliciano - Reason: Other - Comment: HR 60) 0920 (Given - Provider: Ceci Back RN) polyethylene glycol (MIRALAX) packet 17 g 17 g, oral, Daily, First dose on Thu12/09/24 at 1130, Indications: constipation 1125 (Given - Provider: Alejo Hogan RN) potassium chloride ER (KLOR-CON) extended release tablet 20 mEq (CANCELED) 20 mEq, oral, 2 times daily, First dose on Thu12/06/24 at 1400, Do not crush, chew, cut, dissolve, open or otherwise manipulate tablet/capsule. 0808 (Given - Provider: Steffanie Elias RN)210 (Given - Provider: Baldemar Feliciano) 0921 (Given - Provider: Ceci Back, CHARAN)2148 (Given - Provider: Baldemar Feliciano) 0859 (Given - Provider: Alejo Hogan RN) tamsulosin (FLOMAX) extended release capsule 0.4 mg 0.4 mg, oral, Daily with dinner, First dose on 11/27/24 at 1800, Do not crush, chew, cut, dissolve, open or otherwise manipulate tablet/capsule. 1709 (Given - Provider: Steffanie Elias RN) 1736 (Given - Provider: Ceci Back RN) 1716 (Given - Provider: Alejo Hogan RN) thiamine (VITAMIN B-1) tablet 100 mg 100 mg, oral, Daily, First dose on 11/27/24 at 1030 0808 (Given - Provider: Steffanie Elias RN) 0921 (Given - Provider: Ceci Back RN) 0859 (Given - Provider: Alejo Hogan RN) PRN Medication Order 12/07/2024 12/08/2024 12/09/2024 acetaminophen (TYLENOL) tablet 650 mg 650 mg, oral, Every 6 hours PRN, 1st line for pain, Starting on 11/27/24 at 0952 1405 (Given - Provider: Steffanie Elias RN)2107 (Given - Provider: Baldemar Feliciano) 0559 (Given - Provider: Baldemar Feliciano)1827 (Given - Provider: Ceci Back RN) artificial tears (ydjlkyc-lpiyplzjbjoa-pimkpl in) (GENTEAL TEARS MODERATE) 0.1-0.3-0.2 % ophthalmic solution 1 drop 1 drop, each eye, 4 times daily PRN, dry eyes, Starting on 11/27/24 at 1955 0827 (Given - Provider: Steffanie Elias RN) calcium carbonate (TUMS) chewable tablet 1,000 mg 1,000 mg (400 mg of elemental calcium), oral, Every 4 hours PRN, heartburn, Starting on Melania 12/08/24 at 1812 1825 (Given - Provider: Ceci Back RN) ceFAZolin (ANCEF) 1 gram/10 mL in sterile water (premix) (CANCELED) Administer over 3 Minutes, Code/trauma/sedation medication, Starting on Thu12/07/24 at 1033, Intra-Procedure (CV) 1033 (Given - Provider: Ronit Alvarenga RN) ceFAZolin (ANCEF) 1,000 mg in sodium chloride 0.9% 500 mL solution (CANCELED) Code/trauma/sedation medication, Starting on Thu12/07/24 at 1033, Intra-Procedure (CV) 1033 (Given - Provider: Sage Tillman MD) docusate sodium (COLACE) capsule 100 mg 100 mg, oral, 2 times daily PRN, constipation, Starting on 11/27/24 at 2207, Indications: constipation 1824 (Given - Provider: Ceci Back RN) fentaNYL (SUBLIMAZE) preservative free injection (CANCELED) Code/trauma/sedation medication, Starting on Thu12/07/24 at 1053, Intra-Procedure (CV) 1053 (Given - Provider: Laurie Alejandra RN)1059 (Given - Provider: Ronit Alvarenga RN)1112 (Given - Provider: Ronit Alvarenga RN)1116 (Given - Provider: Laurie Alejandra RN)1146 (Given - Provider: Laurie Alejandra RN) hydrOXYzine (ATARAX) tablet 25 mg 25 mg, oral, Every 4 hours PRN, itching, allergies, anxiety, Insomnia, Starting on Melania 12/01/24 at 2201 2254 (Given - Provider: Baldemar Feliciano) iodixanoL 320 mg iodine/mL injection (CANCELED) Code/trauma/sedation medication, Starting on Thu12/07/24 at 1046, Intra-Procedure (CV) 1035 (Given - Provider: Laurie Alejandra RN) lidocaine-EPINEPHrine (XYLOCAINE with EPI) 2 %-1:100,000 injection (CANCELED) Code/trauma/sedation medication, Starting on Thu12/07/24 at 1053, Intra-Procedure (CV), Indications: Administration of Local Anesthesia 1053 (Given - Provider: Sage Tillman MD) midazolam (VERSED) 1 mg/mL preservative free injection (CANCELED) Administer over 2 Minutes, Code/trauma/sedation medication, Starting on Thu12/07/24 at 1053, Intra-Procedure (CV) 1053 (Given - Provider: Laurie Alejandra RN)1100 (Given - Provider: Laurie Alejandra RN)1112 (Given - Provider: Ronit Alvarenga RN)1116 (Given - Provider: Laurie Alejandra RN) ondansetron (ZOFRAN) injection 4 mg 4 mg, intravenous, Administer over 2 Minutes, Every 4 hours PRN, nausea, vomiting, Starting on 11/27/24 at 0952 ondansetron (ZOFRAN) injection (CANCELED) Administer over 2 Minutes, Code/trauma/sedation medication, Starting on Thu12/07/24 at 1034, Intra-Procedure (CV) 1034 (Given - Provider: Ronit Alvarenga RN) oxyCODONE-acetaminophen (PERCOCET) 5-325 mg per tablet 1 tablet 1 tablet, oral, Every 4 hours PRN, 2nd line for pain, Starting on Thu12/07/24 at 1213, Indications: Pain ramelteon (ROZEREM) tablet 8 mg 8 mg, oral, Nightly PRN, sleep, Starting on Thu11/27/24 at 2208, Indications: Sleep-Onset Insomnia sodium chloride 0.9% bolus (COMPLETED) Code/trauma/sedation continuous med, Starting on Thu12/07/24 at 1033, Intra-Procedure (CV) 1011 (New Bag - Provider: Ronit Alvarenga RN) sodium chloride 0.9% flush 10 mL 10 mL, intravenous, As needed, line care, Starting on Thu11/29/24 at 1233, Intra-Procedure (CV) sodium chloride 0.9% infusion (COMPLETED) Code/trauma/sedation continuous med, Starting on Thu12/07/24 at 1108, Intra-Procedure (CV) 1108 (New Bag - Provider: Ronit Alvarenga RN) sodium chloride 0.9% irrigation (CANCELED) Code/trauma/sedation medication, Starting on Thu12/07/24 at 1027, Intra-Procedure (CV) 1027 (Given - Provider: Sage Tillman MD) documented in this encounter Orders Medications Ordered That Jd ht Not Have Been Administered Count Last Ordered Date First Ordered Date ceFAZolin (ANCEF) 1 gram/10 mL in sterile water (premix) 12/07/2024 ceFAZolin (ANCEF) 1,000 mg i n sodium chloride 0.9% 500 mL solution 12/07/2024 fentaNYL (SUBLIMAZE) preserv ative free injection 12/07/2024 iodixanoL 320 mg iodine/mL injection 01/2025 lidocaine-EPINEPHrine (XYLOC FRIEDA with EPI) 2 %-1:100,000 injection 12/07/2024 midazolam (VERSED) 1 mg/mL p reservative free injection 12/07/2024 ondansetron (ZOFRAN) injection 12/07/2024 oxyCODONE-acetaminophen (PER COCET) 5-325 mg per tablet 1 tablet 1 12/07/2024 sodium chloride 0.9% bolus 12/07/2024 sodium chloride 0.9% infusion 1 12/07/2024 sodium chloride 0.9% irrigation 1 Diet Count Last Ordered Date First Orde red Date ADULT DISCHARGE DIET 1 12/09/2024 Nursing Count Last Ordered Date First Orde red Date DISCHARGE ACTIVITY 2 12/09/2024 DISCHARGE CALL PROVIDER 3 12/09/2024 DISCHARGE INSTRUCTIONS 2 12/09/2024 FOLLOW UP WITH ESTABLISHED PROVIDER 4 12/09 TAP WATER ENEMA 1 12/09/2024 TELEMETRY MONITORING 1 12/01/2024 NURSING COMMUNICATION 1 11/28/2024 Consult Count Last Ordered Date First Orde red Date AUTHORIZATION FOR POST-ACUTE CARE 2 025 12/05/2024 CONSULT TO PHYSICAL MEDICINE AND REHAB 1 IP CONSULT TO SOCIAL WORK 1 11/28/2024 Admission Count Last Ordered Date First Orde red Date ADMIT TO INPATIENT 1 11/27/2024 Transfer Count Last Ordered Date First Orde red Date TRANSFER PATIENT TO NEW UNIT 2 12/05/2024 Discharge Count Last Ordered Date First Orde red Date DISCHARGE PATIENT 1 12/09/2024 CORE MEASURES Count Last Ordered Date First Ord ered Date REASON FOR NO VTE PROPHYLAXIS AT ADMISSION 1 12/07/2024 Case Request Count Last Ordered Date First Orde red Date 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 auris Comment:[facility] - October 2024 11/25/2024 11/25/2024 11/27/2024 4:15 PM C DT COVID: Suspected 11/27/2024 11/27/2024 11/27/2024 4:43 PM CDT Ring Surveillance: C. auris 12/08/2024 12/08/2024 documented as of this encounter Care Teams Waste Disposal Attendant Relationship Specialty Start Date End Date Raquel Callejas MD [address] [facility] [address] [place] [address] PCP - General Internal Medicine 01/16/20 [place] [id number] [address] Consulting Physician Cardiology 08/28/20 Sage Tillman MD [address] [place] [address] Referring Physician Cardiology 12/09/24 [place] [id number] [facility] [address] [place] [address] Consulting Physician Urology 12/09/24 [place] [id number] [address] [facility] [address] [place] [address] Consulting Physician Neurology 12/09/24 documented as of this encounter
--- OUTSIDE RECORDS SUMMARY | 2024-12-10 04:32 | XMS_ITS | Clinical Summary ---
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 Role Phone Raquel Callejas MD Primary Care Provide r Chetan Mayer MD Unavailable Sage Tillman MD Unavailable Michael Pretty MD Unavailable [phone] Tawny CLAYTON MD, Ricky Duong Unavailable Allergies Active Allergy Reactions Criticality Noted Date Comments Meperidine Vomiting,Other (See comments),Nausea & Vomiting Low 10/16/2008 Medications acetaminophen (TYLENOL) 325 mg tablet Take 2 tablets (650 mg total) by mouth every 6 (six) hours as needed for fever 30 tablet 12/10/19 25 Active atorvastatin (LIPITOR) 80 mg tablet Take 1 tablet (80 mg total) by mouth every morning 30 tablet 12/11/19 25 026 Active cetirizine (ZyrTEC) 10 mg tabletIndicati ons:Allergic Rhinitis Take 1 tablet (10 mg total) by mouth every morning 30 tablet 12/10/19 25 Active clopidogreL (PLAVIX) 75 mg tablet Take 1 tablet (75 mg total) by mouth daily 30 tablet 12/10/19 25 026 Active dilTIAZem XR (CARDIZEM CD,DILACOR XR) 240 mg 24 hr capsule Take 1 capsule (240 mg total) by mouth daily 30 capsule 12/11/19 25 026 Active docusate sodium (COLACE) 100 mg capsuleIndicat ions:constipat ion Take 1 capsule (100 mg total) by mouth 2 (two) times a day 30 capsule 12/10/19 25 Active apixaban (Eliquis) 5 mg tabletIndicati ons:. Take 1 tablet (5 mg total) by mouth 2 (two) times a day 60 tablet 12/10/19 25 Active ferrous sulfate 325 mg (65 mg of elemental iron) tablet Take 1 tablet (65 mg of elemental iron total) by mouth 2 (two) times a day with meals 60 tablet 12/10/19 25 026 Active fluticasone propionate (FLONASE) 50 mcg/actuation nasal sprayIndicatio ns:Allergic Rhinitis Administer 1 spray into each nostril every morning 1 each 12/10/19 25 Active folic acid (FOLVITE) 1 mg tablet Take 1 tablet (1 mg total) by mouth daily 30 tablet 12/10/19 25 Active lisinopriL (PRINIVIL,ZEST RIL) 20 mg tablet Take 1 tablet (20 mg total) by mouth daily 30 tablet 12/11/19 25 026 Active magnesium oxide (MAG-OX) 400 mg (241.3 mg elemental magnesium) tablet Take 1 tablet (400 mg total) by mouth 2 (two) times a day 60 tablet 12/10/19 25 026 Active megestrol (MEGACE) suspension 400 mg/10 mL Take 10 mL (400 mg total) by mouth daily Shake well just before you measure a dose. Measure with a special dose-measurin g spoon or medicine cup, not with a regular table spoon. If you do not have a dose-measurin g device, ask your pharmacist for one. 400 mL 12/11/19 25 Active polyethylene glycol (MIRALAX) 17 gram packetIndicati ons:constipati on Take 1 packet (17 g total) by mouth daily 30 packet 12/11/19 25 Active ezetimibe (ZETIA) 10 mg tablet Take 1 tablet (10 mg total) by mouth daily 30 tablet 12/10/19 25 Active famotidine (PEPCID) 20 mg tablet Take 1 tablet (20 mg total) by mouth 2 (two) times a day 60 tablet 11 12/10/19 25 026 Active tamsulosin (FLOMAX) 0.4 mg extended release capsule Take 1 capsule (0.4 mg total) by mouth daily with dinner 30 capsule 12/10/19 25 Active thiamine (VITAMIN B1) 100 mg tablet Take 1 tablet (100 mg total) by mouth daily 30 tablet 12/10/19 25 Active cephalexin (KEFLEX) 500 mg capsule Take 1 capsule (500 mg total) by mouth 2 (two) times a day for 7 days 14 capsule 12/10/19 25 025 Active cetirizine (ZyrTEC) 10 mg tabletIndicati ons:Allergic Rhinitis Take 1 tablet (10 mg total) by mouth every morning 025 Discontinued fluticasone propionate (FLONASE) 50 mcg/actuation nasal sprayIndicatio ns:Allergic Rhinitis Administer 1 spray into each nostril every morning 10/03/19 025 Discontinued atorvastatin (LIPITOR) 80 mg tablet Take 1 tablet (80 mg total) by mouth every morning 05/04/20 025 Discontinued(St op Taking at Discharge) ferrous sulfate (iron) 325 mg (65 mg of elemental iron) tablet 01/11/20 025 Discontinued(St op Taking at Discharge) ezetimibe (ZETIA) 10 mg tablet Take 1 tablet (10 mg total) by mouth daily 10/13/19 025 Discontinued magnesium oxide (MAG-OX) 400 mg (241.3 mg elemental magnesium) tablet Take 1 tablet every day by oral route. 025 Discontinued(St op Taking at Discharge) folic acid (FOLVITE) 1 mg tablet Take 1 tablet (1 mg total) by mouth daily 025 Discontinued lisinopriL (PRINIVIL,ZEST RIL) 10 mg tablet Take 1 tablet (10 mg total) by mouth daily 02/26/20 24 025 Discontinued(St op Taking at Discharge) metoprolol tartrate (LOPRESSOR) 25 mg immediate release tablet TAKE 1 (ONE) TABLET BY MOUTH 2 TIMES DAILY 06/21/19 25 025 Discontinued(St op Taking at Discharge) Eliquis 5 mg tablet Take 1 tablet (5 mg total) by mouth 2 (two) times a day 06/21/19 25 025 Discontinued(St op Taking at Discharge) thiamine (VITAMIN B1) 100 mg tablet Take 1 tablet (100 mg total) by mouth daily 025 Discontinued tamsulosin (FLOMAX) 0.4 mg extended release capsule Take 1 capsule (0.4 mg total) by mouth daily with dinner 025 Discontinued aspirin 81 mg enteric coated tablet Take 1 tablet (81 mg total) by mouth daily 025 Discontinued(St op Taking at Discharge) Active Problems Patient Care Coordination No te Formatting of this note migh t be different from the original. ./ Problem Noted Date Diagnosed Date Moderate protein-calorie malnutrition 12/05/2024 Sepsis 11/27/2024 Fever and chills 11/27/2024 Altered mental status 11/15/2024 CVA (cerebrovascular acciden t due to intracerebral hemorrhage) 11/15/2024 Episode of unresponsiveness 11/15/2024 Acute CVA (cerebrovascular accident) 10/25/2024 Intracranial vascular stenosis 04/20/2024 History of stroke 02/19/2024 Paresthesia 12/11/2023 Glenohumeral arthritis, right 05/29/2023 Anemia 05/19/2023 Rotator cuff arthropathy of right shoulder 04/16 Chronic rhinitis 01/30/2020 Coronary atherosclerosis 01/30/2020 Essential hypertension 01/30/2020 Hyperlipidemia 01/30/2020 Wax in ear 01/30/2020 Diplopia 01/30/2020 Nocturia 09/05/2016 Dizziness and giddiness 11/22/2015 Encounters Date Type Department Care Team Description 12/07/2024 10:00 AM CDT - 12/07/2024 12:35 PM CDT Surgery [facility] Electrophysiology Lab [address] [place] [id number] Sage Tillman MD IMPLANT DUAL CHAMBER PPM SYSTEM W/ DUAL ELECTRODES (GEN AND LEADS, NEW OR REPLACE) [id number] 11/27/2024 9:48 AM CDT - 12/09/2024 8:08 PM CDT Hospital Encounter [address] [address] Leanne Dockery MD Ogunremi, Olumide Omolulu, MD Perez Porcel, Carlos Hammond MD Hyperlipidemia (Primary Dx); Essential hypertension Discharge Disposition: Discharge to [facility] 11/27/2024 [facility] [address] [place] [address] 11/18/2024 1:38 PM CDT - 11/27/2024 9:50 AM CDT Hospital Encounter [facility] Physical Medicine and Rehabilitation [address] [place] [address] Perla nielson, MD Nahed Lanza Olga, MD Acute CVA (cerebrovascular accident) (HCC) [I63.9] (Primary Dx) Discharge Disposition: Admitted as an inpatient to [facility] 11/16/2024 Orders Only [facility] Cardiac Catheterization Lab [address] [place] [address] Sage Tillman MD Episode of unresponsiveness (Primary Dx) 11/15/2024 9:30 AM CDT - 11/18/2024 1:35 PM CDT Hospital Encounter [address] [address] Otto Redd MD Burton, Jeffrey Ryan, DO Perez Porcel, Jose Daniel, MD Episode of unresponsiveness (Primary Dx); CVA (cerebrovascular accident due to intracerebral hemorrhage) (HCC); Transient alteration of awareness Discharge Disposition: Discharge to an Rehab facility 10/28/2024 4:10 PM CDT - 11/15/2024 9:01 AM CDT Hospital Encounter [facility] Physical Medicine and Rehabilitation [address] [place] [address] Perla nielson, MD Lalo Lanza Jeffrey Ryan, DO Acute CVA (cerebrovascular accident) (HCC) (Primary Dx) Discharge Disposition: Admitted as an inpatient to [facility] 10/28/2024 9:04 AM CDT Anesthesia Event [facility] GI Lab [address] [place] [address] Jasmin Han MD PhD Gibbons, Jesse Graham, PAULA 10/28/2024 8:56 AM CDT - 10/28/2024 9:26 AM CDT Surgery [facility] GI Lab [address] [place] [address] Cate Dai MD TRANSESOPHAGEAL ECHOCARDIOGRAM 10/27/2024 Orders Only [facility] Cardiac Catheterization Lab [address] [place] [address] Santana Bansal MD Acute CVA (cerebrovascular accident) (HCC) (Primary Dx) 10/25/2024 4:03 PM CDT - 10/28/2024 4:09 [place] [address] Caroline Cobos MD Ogunremi, Olumide Omolulu, MD Onaghise, Jude, MD Acute CVA (cerebrovascular accident) (HCC) (Primary Dx) Discharge Disposition: Discharge to an Rehab facility 09/13/2024 Results Follow-Up [facility] Neurology [address] [place] [phone] Stacia Shanks NP MRA Head WO Contrast, MRI Brain WO Contrast 09/13/2024 Orders Only [facility] Neurology [address] [place] [phone] Stacia Shanks, KAYLENE Paresthesia; Dizziness and giddiness; History of stroke; Intracranial vascular stenosis from Last 3 Months Immunizations Immunization Administration Dates Next Due Influenza, Quadrivalent, Hig h Dose, Preservative Free, Intrr 03/06/2020 Influenza, Quadrivalent, Spl it, Preservative Free, Intramuscular 05/16/2016 Influenza, Trivalent, High D ose, Split, Preservative Free, Intramuscular 03/27/2017,04/12/2015 Moderna SARS-CoV-2 Monovalent Vaccination (12+ Y RS) 08/07/2020,07/10/2020 Pneumococcal Conjugate PCV 13 09/05/2016 Pneumococcal Polysaccharide PPV23 09/09/2017 Surgical History Surgery Date Site/Laterality Comments HEART SURGERY ANKLE SURGERY ORAL SURGERY CORONARY ARTERY BYPASS GRAFT 06/01/2004 - 05/31/2005 x4 on Plavix LASIK CARDIAC ELECTROPHYSIOLOGY PROCEDURE 12/07/2024 N/A Procedure: IMPLANT DUAL CHAMBER PPM SYSTEM W/ DUAL ELECTRODES (GEN AND LEADS, NEW OR REPLACE) [id number]; Surgeon: Sage Tillman MD; Location: [facility]; Service: Cardiovascular; Laterality: N/A; Medical devices from this surgery are in the Medical Devices section. Medical History Medical History Date Comments Nocturia Hypertension Hyperlipidemia Visual disturbance Loss of balance Dizziness Family History Medical History Relation Name Comments No Known Problems Father Macular degeneration Mother Anesthesia problems Neg Hx Relation Name Status Comments Father Mother Social History Tobacco Use Types Packs/Day Years Used Date Smoking Tobacco: Former Cigarettes Q uit: 1999 Smokeless Tobacco: Never Alcohol Use Standard Drinks/Week Comments Yes 30 (1 standard drink = 0.6 oz pu re alcohol) [facility] Utilities Answer Date Recorded In the past 12 months has th e electric, gas, oil, or water company threatened to shut off services in your home? No 11/28/2024 Social Connection and Isolation Panel [NHANES] A nswer Date Recorded In a typical week, how many times do you talk on the phone with family, friends, or neighbors? Twice a week 11/28/2024 How often do you get together with friends or re latives? Twice a week 11/28/2024 How often do you attend quaker or samaritan serv ices? Never 11/28/2024 Do you belong to any clubs o r organizations such as quaker groups, unions, fraternal or athletic groups, or [...] Recorded Patient Health Questionnaire-2 Score 0 11/27/2024 [facility] of Occupat ional Health - Occupational Stress [...] any time in the past 12 m [place], were you homeless or living in a halfway (including now)? No 11/28/2024 Personal Safety Answer Date Recorded Have you ever been in or are you currently in a harmful physical or emotional relationship or is someone making you feel afraid or unsafe? 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 Gender Identity Not on file Sexual Orientation Not on file Obstetrics History Last Filed Vital Signs Vital Sign Reading [...] Mass Index 24.72 12/01/2024 12:55 PM CDT Plan of Treatment Health Maintenance Due Date Last Done Comments Colon Cancer Screening-Colonoscopy 1950 Hepatitis C Screening 1950 DTaP/Tdap/Td Vaccine (1 - Tdap) 1960 Hepatitis B Screening 11/15/1967 Well Visit 65+ 2014 Covid-19 Vaccine (5 - 2023-2 5 season) 2024 11/08/2021, 03/31/2021, 08/07/2020, Additional history exists Influenza Vaccine (#1) 2025 , 03/06/2020, 03/27/2017, Additional history exists Depression Screening 11/18/2025 11/18/2024, 11/18/2024, 11/15/2024, Additional history exists Fall Risk Assessment 12/09/2025 12/09/2024 Pneumococcal vaccine 65+ Completed 09/09/2017, 0411/2016 Zoster Vaccine Completed 08/14/2022, 06/16/2022 Abdominal Aortic Aneurysm (A AA) Screen Completed 11/26/2024 Medical Devices Implanted Type Area Aerospace Project Manager Device Identifier Shelf Expiration Date Model / Serial / Lot Medtronic Inc Gross S Mri Surescan 50.8x46.6mm 2 Chamber 7.4mm Pacemaker 22.5gm [id number] - [id number] - [id number] Implanted:Qty: 1 on 12/07/2024 by Sage Tillman MD at [facility] Pacemaker Medtronic Inc 02/26/2026 [id number] / [id number] / [employer] Tornier Aequalis Perform Od25 Mm Lateralize Augment Reverse Shoulder +6 Mm Baseplate Glenoid [id number] - [id number] - [id number] Implanted:Qty: 1 on 05/29/2023 by Tatianna Lewis MD at [facility] Right: Shoulder [employer] [id number] 01/01/2028 [id number] / [id number] / Description:Time out complet ed [employer] Aequalis Perform Reversed 6.5mm 35mm Central Glenoid Screw [id number] - [id number] Implanted:Qty: 1 on 05/29/2023 by Tatianna Lewis MD at [facility] Right: Shoulder [employer] [id number] / / [employer] Aequalis Perform Reversed 5mm 30mm Peripheral Glenoid Screw [id number] - [id number] Implanted:Qty: 1 on 05/29/2023 by Tatianna Lewis MD at [facility] Right: Shoulder [employer] [id number] / / [employer] Aequalis Perform Reversed 5mm 34mm Peripheral Glenoid Screw [id number] - [id number] Implanted:Qty: 1 on 05/29/2023 by Tatianna Lewis MD at [facility] Right: Shoulder [employer] [id number] / / [employer] Aequalis Perform Reversed 5mm 18mm Peripheral Glenoid Screw [id number] - [id number] Implanted:Qty: 2 on 05/29/2023 by Tatianna Lewis MD at [facility] Right: Shoulder [employer] [id number] / / [employer] Tornier Aequalis Perform 39mm Reverse Shoulder Standard Sphere [id number] - [id number] - [id number] Implanted:Qty: 1 on 05/29/2023 by Tatianna Lewis MD at [facility] Right: Shoulder [employer] [id number] 10/01/2027 [id number] / [id number] / [employer] Insert Humeral Retention Reverse Size 3/4 +0 Perform 39mm Combination [id number] - [id number] - [id number] Implanted:Qty: 1 on 05/29/2023 by Tatianna Lewis MD at [facility] Right: Shoulder [employer] [id number] 02/13/2028 [id number] / [id number] / [employer] Inc Stem Perform Sz 3 Plus Humeral Long Dwx3pl - [id number] - [id number] Implanted:Qty: 1 on 05/29/2023 by Tatianna Lewis MD at [facility] Right: Shoulder kalidea [id number] 02/06/2028 [id number] / [id number] / Medtronic Inc Capsurefix Novus 6.2fr 2mm 52cm Bipolar Screw In Implantable Latex Free 5076-52 - [id number] - [id number] Implanted:Qty: 1 on 12/07/2024 [facility] 08/22/2026 5076-52 / [id number] / Medtronic Inc Capsurefix Novus 6.2fr 2mm 58cm Bipolar Screw In Implantable 5076-58 - [id number] - [id number] Implanted:Qty: 1 on 12/07/2024 by Sage Tillman MD at [facility] Med[employer]onic Inc 03/02/2026 5076-58 / [id number] / Procedures Procedure Name Priority Date/Time Associated Diagnosis Comments EGFR Routine 12/09/2024 6:37 AM CDT BASIC METABOLIC PANEL Routine 12/09/2024 6:37 AM CDT CBC WITHOUT DIFFERENTIAL Routine 12/09/2024 6:37 AM CDT EGFR Routine [...] 11:48 AM CDTThis note is in progress. [employer] Job ID: [id number] Amphion Document ID: [id number] Dictated date/time: [id number] Mr. Barnhart is a 74-year-old male who underwent permanent [...] through the sheath and overthese wires a 7-Singaporean sheath was placed in the right atrium. [...] The leads were then connected to a Medtronic Gross S DR MRI compatible generator. The leads [...] the leftpectoral area. Job ID/Internal Job ID: [id number] EGFR Routine 12/07/2024 3:30 AM CDT BASIC METABOLIC PANEL Routine 12/07/2024 3:30 AM CDT CBC WITHOUT DIFFERENTIAL Routine 12/07/2024 3:30 AM CDT PHOSPHORUS Routine 12/06/2024 3:17 PM CDT MAGNESIUM Routine 12/06/2024 3:17 PM CDT EGFR Routine 12/06/2024 5:04 AM CDT BASIC METABOLIC PANEL Routine 12/06/2024 5:04 AM CDT CBC WITHOUT DIFFERENTIAL Routine 12/06/2024 5:04 AM CDT ECG 12-LEAD STAT 12/05/2024 11:44 AM CDT EGFR Routine 12/05/2024 5:41 AM CDT BASIC METABOLIC PANEL Routine 12/05/2024 5:41 AM CDT CBC WITHOUT DIFFERENTIAL Routine 12/05/2024 5:41 AM CDT EGFR Routine 12/04/2024 6:47 AM CDT BASIC METABOLIC PANEL Routine 12/04/2024 6:47 AM CDT CBC WITHOUT DIFFERENTIAL Routine 12/04/2024 6:47 AM CDT EGFR Routine 12/03/2024 6:23 AM CDT BASIC METABOLIC PANEL Routine 12/03/2024 6:23 AM CDT CBC WITHOUT DIFFERENTIAL Routine 12/03/2024 6:23 AM CDT EGFR Routine 12/02/2024 6:50 AM CDT BASIC METABOLIC PANEL Routine 12/02/2024 6:50 AM CDT CBC WITHOUT DIFFERENTIAL Routine 12/02/2024 6:50 AM CDT EGFR Routine 12/01/2024 4:24 AM CDT BASIC METABOLIC PANEL Routine 12/01/2024 4:24 AM CDT CBC WITHOUT DIFFERENTIAL Routine 12/01/2024 4:24 AM CDT EGFR Routine 11/30/2024 5:09 AM CDT BASIC METABOLIC PANEL Routine 11/30/2024 5:09 AM CDT CBC WITHOUT DIFFERENTIAL Routine 11/30/2024 5:09 AM CDT STRESS TEST FOR DUAL READ IP Routine 11/29/2024 2:26 PM CDT NM MPI SPECT (REST AND/OR STRESS) MULTIPLE STUDIES IP Routine 11/29/2024 2:26 PM CDT TROPONIN T HIGH-SENSITIVITY 4-HR Timed 11/29/2024 10:28 AM CDT TROPONIN T HIGH-SENSITIVITY 2-HOUR Timed 11/29/2024 9:02 AM CDT EGFR Routine 11/29/2024 6:13 AM CDT BASIC METABOLIC PANEL Routine 11/29/2024 6:13 AM CDT CBC WITHOUT DIFFERENTIAL Routine 11/29/2024 6:13 AM CDT TROPONIN T HIGH-SENSITIVITY SERIES (BASELINE, 2HR, 4HR, 6HR) Routine 11/29/2024 6:13 AM CDT XR CHEST 1 VIEW IP Routine 11/28/2024 10:11 AM CDT ECG 12-LEAD Routine 11/28/2024 9:39 AM CDT EGFR Routine 11/28/2024 9:37 AM CDT BASIC METABOLIC PANEL Routine 11/28/2024 9:37 AM CDT CBC WITHOUT DIFFERENTIAL Routine 11/28/2024 9:37 AM CDT RESPIRATORY PATHOGEN PANEL Routine 11/27/2024 3:27 PM CDT BLOOD CULTURE Routine 11/27/2024 11:41 AM CDT BLOOD CULTURE Routine 11/27/2024 11:41 AM CDT DIFFERENTIAL AUTO Routine 11/27/2024 4:57 AM CDT SEPSIS LACTATE WITH REFLEX Routine 11/27/2024 4:57 AM CDT CBC WITH AUTO DIFFERENTIAL Routine 11/27/2024 4:57 AM CDT BLOOD CULTURE Routine 11/27/2024 4:57 AM CDT BLOOD CULTURE Routine 11/27/2024 4:[address] CHEST ABDOMEN PELVIS WO CONTRAST IP Routine 11/26/2024 6:20 PM CDT POCT GLUCOSE DEVICE Routine 11/26/2024 5:03 PM CDT XR CHEST 1 VIEW Routine 11/25/2024 4:43 PM CDT EGFR STAT 11/25/2024 2:54 PM CDT DIFFERENTIAL AUTO STAT 11/25/2024 2:54 PM CDT CBC WITH AUTO DIFFERENTIAL STAT 11/25/2024 2:54 PM CDT COMPREHENSIVE METABOLIC PANEL STAT 11/25/2024 2:54 PM CDT INFECTION PREVENTION BAMBI AURIS PCR, SURVEILLANCE Routine 11/25/2024 12:38 PM CDT URINALYSIS AND REFLEX TO MICROSCOPIC AND CULTURE Routine 11/25/2024 9:24 AM CDT EGFR Routine 11/21/2024 5:49 AM CDT DIFFERENTIAL AUTO Routine 11/21/2024 5:49 AM CDT COMPREHENSIVE METABOLIC PANEL Routine 11/21/2024 5:49 AM CDT CBC WITH AUTO DIFFERENTIAL Routine 11/21/2024 5:49 AM CDT POCT GLUCOSE DEVICE Routine 11/17/2024 4:38 PM CDT EGFR Routine 11/17/2024 4:24 AM CDT BASIC METABOLIC PANEL Routine 11/17/2024 4:24 AM CDT EEG Routine 11/16/2024 10:41 AM CDT MRI BRAIN WO CONTRAST IP Routine 11/16/2024 9:33 AM CDT BLOOD CULTURE Routine 11/15/2024 5:23 PM CDT BLOOD CULTURE Routine 11/15/2024 5:14 PM CDT CTA/CTP RAPID STROKE Critical/Life-Threatening 11/15/2024 7:[address] STROKE PROTOCOL WO CONTRAST Critical/Life-Threatening 11/15/2024 7:23 AM CDT POCT GLUCOSE DEVICE Routine 11/15/2024 7:10 AM CDT URINALYSIS, MICROSCOPIC ONLY Routine 11/15/2024 6:58 AM CDT URINE CULTURE Routine 11/15/2024 6:58 AM CDT URINALYSIS AND REFLEX TO MICROSCOPIC AND CULTURE Routine 11/15/2024 6:58 AM CDT POCT GLUCOSE DEVICE Routine 11/15/2024 6:33 AM CDT XR CHEST 1 VIEW Routine 2024 1:16 PM CDT EGFR Routine 2024 10:22 AM CDT DIFFERENTIAL AUTO Routine 2024 10:22 AM CDT CBC WITH AUTO DIFFERENTIAL Routine 2024 10:22 AM CDT COMPREHENSIVE METABOLIC PANEL Routine 2024 10:22 AM CDT XR KNEE LEFT 1 OR 2 VIEWS IP Routine 11/11/2024 11:14 AM CDT ECG 12-LEAD Routine 11/08/2024 10:57 AM CDT EGFR Routine 11/07/2024 5:31 AM CDT DIFFERENTIAL AUTO Routine 11/07/2024 5:31 AM CDT CBC WITH AUTO DIFFERENTIAL Routine 11/07/2024 5:31 AM CDT COMPREHENSIVE METABOLIC PANEL Routine 11/07/2024 5:31 AM CDT URINALYSIS AND REFLEX TO MICROSCOPIC AND CULTURE Routine 11/03/2024 9:52 AM CDT XR KUB IP Routine 10/31/2024 11:26 AM CDT EGFR Routine 10/31/2024 5:02 AM CDT DIFFERENTIAL AUTO Routine 10/31/2024 5:02 AM CDT CBC WITH AUTO DIFFERENTIAL Routine 10/31/2024 5:02 AM CDT COMPREHENSIVE METABOLIC PANEL Routine 10/31/2024 5:02 AM CDT POCT GLUCOSE DEVICE Routine 10/30/2024 5:19 PM CDT EGFR Routine 10/29/2024 5:54 AM CDT DIFFERENTIAL AUTO Routine 10/29/2024 5:54 AM CDT CBC WITH AUTO DIFFERENTIAL Routine 10/29/2024 5:54 AM CDT COMPREHENSIVE METABOLIC PANEL Routine 10/29/2024 5:54 AM CDT CBC WITHOUT DIFFERENTIAL Routine 10/28/2024 11:22 AM CDT TRANSESOPHAGEAL ECHOCARDIOGRAM 10/28/2024 9:04 AM CDT Acute CVA (cerebrovascula r accident) (HCC) XR KNEE RIGHT 1 OR 2 VIEWS IP Routine 10/28/2024 7:33 AM CDT D-DIMER, QUANTITATIVE Routine 10/28/2024 3:35 AM CDT URIC ACID Routine 10/28/2024 3:35 AM CDT URINALYSIS, MICROSCOPIC ONLY STAT 10/27/2024 10:42 AM CDT URINALYSIS AND REFLEX TO MICROSCOPIC AND CULTURE STAT 10/27/2024 10:42 AM CDT EGFR Routine 10/26/2024 4:44 AM CDT DIFFERENTIAL AUTO Routine 10/26/2024 4:44 AM CDT COMPREHENSIVE METABOLIC PANEL Routine 10/26/2024 4:44 AM CDT CBC WITH AUTO DIFFERENTIAL Routine 10/26/2024 4:44 AM CDT LIPID PANEL Routine 10/26/2024 4:44 AM CDT HEMOGLOBIN A1C Routine 10/26/2024 4:44 AM CDT XR CHEST 1 VIEW ED 10/25/2024 10:05 PM CDT TROPONIN T HIGH-SENSITIVITY 4-HR Timed 10/25/2024 7:43 PM CDT MRI BRAIN W WO CONTRAST ED 10/25/2024 7:20 PM CDT TROPONIN T HIGH-SENSITIVITY 2-HOUR Timed 10/25/2024 6:[address] STROKE PROTOCOL W WO CONTRAST Critical/Life-Threatening 10/25/2024 5:[address] STROKE PROTOCOL WO CONTRAST Critical/Life-Threatening 10/25/2024 4:55 PM CDT OK CRITICAL CARE ILL/INJURED PATIENT INIT 30-74 MIN Routine 10/25/2024 4:23 PM CDT TYPE AND SCREEN STAT 10/25/2024 4:10 PM CDT POCT GLUCOSE DEVICE Routine 10/25/2024 4:06 PM CDT EGFR STAT 10/25/2024 4:05 PM CDT PROLACTIN Add-On 10/25/2024 4:05 PM CDT CREATINE KINASE (CK), TOTAL STAT 10/25/2024 4:05 PM CDT DIFFERENTIAL AUTO STAT 10/25/2024 4:05 PM CDT APTT STAT 10/25/2024 4:05 PM CDT PROTIME-INR STAT 10/25/2024 4:05 PM CDT TROPONIN T HIGH-SENSITIVITY SERIES (BASELINE, 2HR, 4HR, 6HR) STAT 10/25/2024 4:05 PM CDT COMPREHENSIVE METABOLIC PANEL STAT 10/25/2024 4:05 PM CDT CBC WITH AUTO DIFFERENTIAL STAT 10/25/2024 4:05 PM CDT ECG 12-LEAD STAT 10/25/2024 4:04 PM CDT MRI BRAIN WO CONTRAST Schedule Routine, Read Routine (OP Routine) 09/16/2024 3:11 PM CDT Paresthesia Dizziness and giddiness History of stroke Intracranial vascular stenosis from Last 3 Months Results * eGFR (12/09/2024 6:37 AM CDT) [...] 6:37 AM CDT 12/09/2024 7:04 AM CDT Leanne Dockery MD LAB BLOOD ORDERABLES Final Re sult [facility] [address] Department of [facility] [place], [place] [id number] * (ABNORMAL) CBC without differential (12/09/2024 6:37 AM CDT) WBC 10.56(H) 3.80 - 9.90 K/cumm Hgb 11.1(L) 13.0 - 17.5 g/dL [facility] Hct 34.2(L) 38.9 - 50.3 % [facility] Plt 432(H) 150 - 400 K/cumm [facility] MPV 9.4 9.1 - 12.3 fL [facility] RBC 3.80(L) 4.30 - 5.80 M/cumm [facility] MCV 90.0 81.3 - 96.4 fL [facility] MCH 29.2 27.1 - 33.3 pg [facility] MCHC 32.5 32.3 - 35.7 g/dL [facility] RDW CV 14.6 11.1 - 14.9 % [facility] RDW SD 48.0 35.7 - 48.1 fL [facility] NRBC abs 0.00 0.00 - 0.01 K/cumm [facility] Blood 12/09/2024 6:37 AM CDT 12/09/2024 7:03 AM CDT Leanne Dockery MD LAB BLOOD ORDERABLES Final Re sult [facility] [address] [place] [address] * (ABNORMAL) Basic metabolic panel (12/09/2024 6:37 AM CDT) Sodium 132(L) 135 - 145 mmol/L Potassium, pl 4.2 3.3 - 4.9 mmol/L [facility] Chloride 101 97 - 110 mmol/L [facility] CO2 19(L) 22 - 32 mmol/L [facility] Anion gap 12 2 - 15 mmol/L [facility] BUN 12 6 - 25 mg/dL [facility] Creatinine 0.71(L) 0.80 - 1.30 mg/dL [facility] Glucose 108 70 - 199 mg/dL [facility] Comment: Interpretive Data Fasting glucose >/= [...] 2022. Calcium 9.5 8.5 - 10.3 mg/dL [facility] Blood 12/09/2024 6:37 AM CDT 12/09/2024 7:04 AM CDT us Leanne Dockery MD LAB BLOOD ORDERABLES Final Re sult [facility] [address] Department [place] [address] * eGFR (12/08/2024 6:02 AM [...] MD LAB BLOOD ORDERABLES Final Re sult [facility] [address] Department [place] [address] * (ABNORMAL) Basic metabolic panel (12/08/2024 6:02 AM CDT) Sodium 137 135 - 145 mmol/L Potassium, pl 4.3 3.3 - 4.9 mmol/L [facility] Chloride 105 97 - 110 mmol/L [facility] CO2 20(L) 22 - 32 mmol/L [facility] Anion gap 12 2 - 15 mmol/L [facility] BUN 14 6 - 25 mg/dL [facility] Creatinine 0.78(L) 0.80 - 1.30 mg/dL [facility] Glucose 95 70 - 199 mg/dL [facility] Comment: Interpretive Data Fasting glucose >/= [...] 2022. Calcium 9.3 8.5 - 10.3 mg/dL [facility] Blood 12/08/2024 6:02 AM CDT 12/08/2024 6:50 AM CDT Leanne Dockery MD LAB BLOOD ORDERABLES Final Re sult [facility] [address] Department [place] [address] * X-ray chest 1 view (Portable) (12/07/2024 [...] failure.. Electronically signed by: Yordan Dai M.D. Sage Tillman MD IMG XR PROCEDURES Final [...] 3:30 AM CDT 12/07/2024 4:16 AM CDT Leanne Dockery MD LAB BLOOD ORDERABLES Final Re sult [facility] [address] Department [place] [address] * (ABNORMAL) CBC without differential (12/07/2024 3:30 AM CDT) WBC 11.69(H) 3.80 - 9.90 K/cumm Hgb 11.0(L) 13.0 - 17.5 g/dL [facility] Hct 34.4(L) 38.9 - 50.3 % [facility] Plt 468(H) 150 - 400 K/cumm [facility] MPV 9.4 9.1 - 12.3 fL [facility] RBC 3.85(L) 4.30 - 5.80 M/cumm [facility] MCV 89.4 81.3 - 96.4 fL [facility] MCH 28.6 27.1 - 33.3 pg [facility] MCHC 32.0(L) 32.3 - 35.7 g/dL [facility] RDW CV 14.5 11.1 - 14.9 % [facility] RDW SD 46.5 35.7 - 48.1 fL [facility] NRBC abs 0.00 0.00 - 0.01 K/cumm [facility] Blood 12/07/2024 3:3 0 AM CDT 12/07/2024 4:17 AM CDT Leanne Dockery MD LAB BLOOD ORDERABLES Final Re sult [facility] DIXON [address] Department [place] [address] * (ABNORMAL) Basic metabolic panel (12/07/2024 3:30 AM CDT) Sodium 138 135 - 145 mmol/L Potassium, pl 3.8 3.3 - 4.9 mmol/L [facility] Chloride 106 97 - 110 mmol/L [facility] CO2 19(L) 22 - 32 mmol/L [facility] Anion gap 13 2 - 15 mmol/L [facility] BUN 14 6 - 25 mg/dL [facility] Creatinine 0.86 0.80 - 1.30 mg/dL [facility] Glucose 95 70 - 199 mg/dL [facility] Comment: Interpretive Data Fasting glucose >/= [...] 2022. Calcium 9.2 8.5 - 10.3 mg/dL [facility] Blood 12/07/2024 3:30 AM CDT 12/07/2024 4:16 AM CDT Leanne Dockery MD LAB BLOOD ORDERABLES Final Re sult Performing Organization Address City/[facility]/ZIP Co de Phone Number [facility] DIXON [address] [place] [address] * Phosphorus (12/06/2024 3:17 PM CDT) Phosphorus, pl 3.7 2.3 - 4.5 mg/dL Blood 12/06/2024 3:17 PM CDT 12/06/2024 4:17 PM CDT Son Card MD LAB BLOOD ORDERABLES Final Result [facility] DIXON [address] [facility] [place] [address] * Magnesium (12/06/2024 3:17 PM CDT) Magnesium 1.9 1.4 - 2.5 mg/dL Blood 12/06/2024 3:17 PM CDT 12/06/2024 4:17 PM CDT Son Card MD LAB BLOOD ORDERABLES Final Result Performing Organization Address [facility] Co de Phone Number ANUSHA DIXON [address] [facility] [place] [address] * eGFR (12/06/2024 5:04 AM CDT) eGFR [...] ORDERABLES Final Re sult Performing Organization Address City/[facility]/ZIP Co de Phone Number ANUSHA DIXON [address] [place] [address] * (ABNORMAL) CBC without differential (12/06/2024 5:04 AM CDT) WBC 8.24 3.80 - 9.90 K/cumm Hgb 11.0(L) 13.0 - 17.5 g/dL [facility] Hct 33.6(L) 38.9 - 50.3 % [facility] Plt 467(H) 150 - 400 K/cumm [facility] MPV 9.3 9.1 - 12.3 fL [facility] RBC 3.76(L) 4.30 - 5.80 M/cumm [facility] MCV 89.4 81.3 - 96.4 fL [facility] MCH 29.3 27.1 - 33.3 pg [facility] MCHC 32.7 32.3 - 35.7 g/dL [facility] RDW CV 14.5 11.1 - 14.9 % [facility] RDW SD 46.8 35.7 - 48.1 fL [facility] NRBC abs 0.00 0.00 - 0.01 K/cumm [facility] Blood 12/06/2024 5:04 AM CDT 12/06/2024 5:56 AM CDT Leanne Dockery MD LAB BLOOD ORDERABLES Final Re sult [facility] D[facility]ON [address] Department of Laboratories [place], [place] [id number] * (ABNORMAL) Basic metabolic panel (12/06/2024 5:04 AM CDT) Sodium 138 135 - 145 mmol/L Potassium, pl 3.3 3.3 - 4.9 mmol/L [facility] Chloride 104 97 - 110 mmol/L [facility] CO2 21(L) 22 - 32 mmol/L [facility] Anion gap 13 2 - 15 mmol/L [facility] BUN 15 6 - 25 mg/dL [facility] Creatinine 0.87 0.80 - 1.30 mg/dL [facility] Glucose 104 70 - 199 mg/dL [facility] Comment: Interpretive Data Fasting glucose >/= [...] 2022. Calcium 9.4 8.5 - 10.3 mg/dL [facility] Blood 12/06/2024 5:04 AM CDT 12/06/2024 5:55 AM CDT Leanne Dockery MD LAB BLOOD ORDERABLES Final Re sult Performing Organization Address [facility] Co de Phone Number [facility] [address] Department [place] [address] * ECG 12 lead (12/05/2024 11:44 AM CDT) 12/05/2024 11:4 4 AM CDT Narrative [facility] - 12/05/2024 12:39 PM CDT Vent Rate: 117 bpm RR Interval: 510 msec OK Interval: 0 msec QRS Duration: 100 msec QT Interval: 331 msec QTC Interval: 401 msec P-R-T [place]: 0 - 16 - -9 degrees IMPRESSION: ATRIAL FLUTTER WITH RAPID VENTRICULAR RESPONSE SEPTAL MYOCARDIAL INFARCTION , PROBABLY OLD [40+ ms Q WAVE IN V1/V2] ABNORMAL ECG Compared to prior EKG, heart rate has increased Atrial flutter replaced sinus rhythm Electronically Signed By: Murphy Gaitan MD Sage Tillman MD ECG ORDERABLES Final Result Performing Organization Address [facility] de Phone Number [id number] * eGFR (12/05/2024 5:41 AM [...] LAB BLOOD ORDERABLES Final Re sult [facility] [address] Department [place] [address] * (ABNORMAL) CBC without differential (12/05/2024 5:41 AM CDT) WBC 8.00 3.80 - 9.90 K/cumm Hgb 11.7(L) 13.0 - 17.5 g/dL [facility] Hct 36.4(L) 38.9 - 50.3 % [facility] Plt 502(H) 150 - 400 K/cumm [facility] MPV 9.1 9.1 - 12.3 fL [facility] RBC 4.08(L) 4.30 - 5.80 M/cumm [facility] MCV 89.2 81.3 - 96.4 fL [facility] MCH 28.7 27.1 - 33.3 pg [facility] MCHC 32.1(L) 32.3 - 35.7 g/dL [facility] RDW CV 14.5 11.1 - 14.9 % [facility] RDW SD 46.7 35.7 - 48.1 fL [facility] NRBC abs 0.00 0.00 - 0.01 K/cumm [facility] Blood 12/05/2024 5:41 AM CDT 12/05/2024 5:49 AM CDT us Leanne Dockery MD LAB BLOOD ORDERABLES Final Re sult [facility] [address] Department [place] [address] * (ABNORMAL) Basic metabolic panel (12/05/2024 5:41 AM CDT) Sodium 138 135 - 145 mmol/L Potassium, pl 3.5 3.3 - 4.9 mmol/L [facility] Chloride 104 97 - 110 mmol/L [facility] CO2 22 22 - 32 mmol/L [facility] Anion gap 12 2 - 15 mmol/L [facility] BUN 13 6 - 25 mg/dL [facility] Creatinine 0.77(L) 0.80 - 1.30 mg/dL [facility] [...] ORDERABLES Final Re sult Performing Organization Address [facility] de Phone Number ANUSHA DIXON [address] Department of Laboratories [place], [place] [id number] * eGFR (12/04/2024 6:47 AM CDT) eGFR >90 >=60 mL/min/1. 73 [...] ORDERABLES Final Re sult Performing Organization Address [facility] Co de Phone Number ANUSHA DIXON [address] Department of Laboratories [place], [place] [id number] * (ABNORMAL) CBC without differential (12/04/2024 6:47 AM CDT) WBC 8.73 3.80 - 9.90 K/cumm Hgb 11.7(L) 13.0 - 17.5 g/dL [facility] Hct 35.3(L) 38.9 - 50.3 % [facility] Plt 490(H) 150 - 400 K/cumm [facility] MPV 9.2 9.1 - 12.3 fL [facility] RBC 4.02(L) 4.30 - 5.80 M/cumm [facility] MCV 87.8 81.3 - 96.4 fL [facility] MCH 29.1 27.1 - 33.3 pg [facility] MCHC 33.1 32.3 - 35.7 g/dL [facility] RDW CV 14.4 11.1 - 14.9 % [facility] RDW SD 45.9 35.7 - 48.1 fL [facility] NRBC abs 0.00 0.00 - 0.01 K/cumm [facility] Blood 12/04/2024 6:47 AM CDT 12/04/2024 7:37 AM CDT us Leanne Dockery MD LAB BLOOD ORDERABLES Final Re sult [facility] [address] Department [place] [address] * (ABNORMAL) Basic metabolic panel (12/04/2024 6:47 AM CDT) Sodium 137 135 - 145 mmol/L Potassium, pl 3.7 3.3 - 4.9 mmol/L [facility] Chloride 102 97 - 110 mmol/L [facility] CO2 21(L) 22 - 32 mmol/L [facility] Anion gap 14 2 - 15 mmol/L [facility] BUN 13 6 - 25 mg/dL [facility] Creatinine 0.76(L) 0.80 - 1.30 mg/dL [facility] Glucose 120 70 - 199 mg/dL [facility] Comment: Interpretive Data Fasting glucose >/= [...] 2022. Calcium 9.4 8.5 - 10.3 mg/dL [facility] Blood 12/04/2024 6:47 AM CDT 12/04/2024 7:37 AM CDT Leanne Dockery MD LAB BLOOD ORDERABLES Final Re sult Performing Organization Address City/[facility] Co de Phone Number ANUSHA DIXON [address] [place] [address] * eGFR (12/03/2024 6:23 AM CDT) eGFR [...] ORDERABLES Final Re sult Performing Organization Address City/[facility]/ZIP Co de Phone Number ANUSHA DIXON [address] [place] [address] * (ABNORMAL) CBC without differential (12/03/2024 6:23 AM CDT) WBC 8.34 3.80 - 9.90 K/cumm Hgb 11.1(L) 13.0 - 17.5 g/dL [facility] Hct 34.5(L) 38.9 - 50.3 % [facility] Plt 423(H) 150 - 400 K/cumm [facility] MPV 9.1 9.1 - 12.3 fL [facility] RBC 3.90(L) 4.30 - 5.80 M/cumm [facility] MCV 88.5 81.3 - 96.4 fL [facility] MCH 28.5 27.1 - 33.3 pg [facility] MCHC 32.2(L) 32.3 - 35.7 g/dL [facility] CH RDW CV 14.4 11.1 - 14.9 % [facility] RDW SD 46.2 35.7 - 48.1 fL [facility] NRBC abs 0.00 0.00 - 0.01 K/cumm [facility] Blood 12/03/2024 6:23 AM CDT 12/03/2024 6:29 AM CDT us Leanne Dockery MD LAB BLOOD ORDERABLES Final Re sult [facility] [address] Department [place] [address] * (ABNORMAL) Basic metabolic panel (12/03/2024 6:23 AM CDT) [facility] Sodium 136 135 - 145 mmol/L Potassium, pl 3.6 3.3 - 4.9 mmol/L [facility] Chloride 102 97 - 110 mmol/L [facility] CO2 22 22 - 32 mmol/L [facility] Anion gap 12 2 - 15 mmol/L [facility] BUN 13 6 - 25 mg/dL [facility] Creatinine 0.76(L) 0.80 - 1.30 mg/dL [facility] Glucose 103 70 - 199 mg/dL [facility] Comment: Interpretive Data Fasting glucose >/= [...] 2022. Calcium 9.3 8.5 - 10.3 mg/dL [facility]ON Blood 12/03/2024 6:23 AM CDT 12/03/2024 6:29 AM CDT Leanne Dockery MD LAB BLOOD ORDERABLES Final Re sult [facility] DIXON [address] Department [place] [address] * eGFR (12/02/2024 6:50 AM CDT) eGFR [...] ORDERABLES Final Re sult Performing Organization Address [facility] Co de Phone Number ANUSHA DIXON [address] Department [place] [address] * (ABNORMAL) CBC without differential (12/02/2024 6:50 AM CDT) Pathologist [facility] WBC 9.22 3.80 - 9.90 K/cumm Hgb 11.1(L) 13.0 - 17.5 g/dL [facility] Hct 33.9(L) 38.9 - 50.3 % [facility] Plt 393 150 - 400 K/cumm [facility] MPV 9.5 9.1 - 12.3 fL [facility] RBC 3.85(L) 4.30 - 5.80 M/cumm [facility] MCV 88.1 81.3 - 96.4 fL [facility] MCH 28.8 27.1 - 33.3 pg [facility] MCHC 32.7 32.3 - 35.7 g/dL [facility] RDW CV 13.9 11.1 - 14.9 % [facility] RDW SD 44.8 35.7 - 48.1 fL [facility] NRBC abs 0.00 0.00 - 0.01 K/cumm [facility] Blood 12/02/2024 6:50 AM CDT 12/02/2024 7:17 AM CDT Leanne Dockery MD LAB BLOOD ORDERABLES Final Re sult Performing Organization Address [facility] Co de Phone Number ANUSHA DIXON [address] Department [place] [address] * (ABNORMAL) Basic metabolic panel (12/02/2024 6:50 AM CDT) Pathologist [facility] Sodium 134(L) 135 - 145 mmol/L Potassium, pl 3.6 3.3 - 4.9 mmol/L [facility] Chloride 100 97 - 110 mmol/L [facility] CO2 24 22 - 32 mmol/L [facility] Anion gap 10 2 - 15 mmol/L [facility] BUN 10 6 - 25 mg/dL [facility] Creatinine 0.78(L) 0.80 - 1.30 mg/dL [facility] Glucose 99 70 - 199 mg/dL [facility] Comment: Interpretive Data Fasting glucose >/= [...] 2022. Calcium 9.5 8.5 - 10.3 mg/dL [facility] Blood 12/02/2024 6:50 AM CDT 12/02/2024 7:17 AM CDT us Leanne Dockery MD LAB BLOOD ORDERABLES Final Re sult [facility] [address] Department [place] [address] * eGFR (12/01/2024 4:24 AM CDT) eGFR [...] ORDERABLES Final Re sult Performing Organization Address [facility]/ZIP Co de Phone Number ANUSHA [address] [place] [address] * (ABNORMAL) CBC without differential (12/01/2024 4:24 AM CDT) WBC 8.01 3.80 - 9.90 K/cumm Hgb 10.5(L) 13.0 - 17.5 g/dL [facility] Hct 32.4(L) 38.9 - 50.3 % [facility] Plt 351 150 - 400 K/cumm [facility] MPV 9.5 9.1 - 12.3 fL [facility] RBC 3.68(L) 4.30 - 5.80 M/cumm [facility] MCV 88.0 81.3 - 96.4 fL [facility] MCH 28.5 27.1 - 33.3 pg [facility] MCHC 32.4 32.3 - 35.7 g/dL [facility] RDW CV 13.9 11.1 - 14.9 % [facility] RDW SD 45.7 35.7 - 48.1 fL [facility] NRBC abs 0.00 0.00 - 0.01 K/cumm [facility] Blood 12/01/2024 4:24 AM CDT 12/01/2024 4:55 AM CDT Leanne Dockery MD LAB BLOOD ORDERABLES Final Re sult [facility] DIXON [address] [place] [address] * (ABNORMAL) Basic metabolic panel (12/01/2024 4:24 AM CDT) Sodium 132(L) 135 - 145 mmol/L Potassium, pl 3.5 3.3 - 4.9 mmol/L [facility] Chloride 100 97 - 110 mmol/L [facility] CO2 21(L) 22 - 32 mmol/L [facility] Anion gap 11 2 - 15 mmol/L [facility] BUN 10 6 - 25 mg/dL [facility] Creatinine 0.71(L) 0.80 - 1.30 mg/dL [facility] Glucose 107 70 - 199 mg/dL [facility] Comment: Interpretive Data Fasting glucose >/= [...] 2022. Calcium 9.0 8.5 - 10.3 mg/dL [facility] Blood 12/01/2024 4:24 AM CDT 12/01/2024 4:49 AM CDT us Leanne Dockery MD LAB BLOOD ORDERABLES Final Re sult [facility] [address] Department [place] [address] * eGFR (11/30/2024 5:09 AM CDT) eGFR [...] ORDERABLES Final Re sult Performing Organization Address City/[facility]/ZIP Co de Phone Number ANUSHA DIXON [address] [place] [address] * (ABNORMAL) CBC without differential (11/30/2024 5:09 AM CDT) WBC 9.18 3.80 - 9.90 K/cumm Hgb 10.6(L) 13.0 - 17.5 g/dL [facility] Hct 31.8(L) 38.9 - 50.3 % [facility] Plt 347 150 - 400 K/cumm [facility] MPV 9.4 9.1 - 12.3 fL [facility] RBC 3.62(L) 4.30 - 5.80 M/cumm [facility] MCV 87.8 81.3 - 96.4 fL [facility] MCH 29.3 27.1 - 33.3 pg [facility] MCHC 33.3 32.3 - 35.7 g/dL [facility] RDW CV 13.9 11.1 - 14.9 % [facility] RDW SD 45.1 35.7 - 48.1 fL [facility] NRBC abs 0.00 0.00 - 0.01 K/cumm [facility] Blood 11/30/2024 5:09 AM CDT 11/30/2024 5:18 AM CDT Leanne Dockery MD LAB BLOOD ORDERABLES Final Re sult Performing Organization Address City/[facility]/ZIP Co de Phone Number ANUSHA DIXON [address] [place] [address] * (ABNORMAL) Basic metabolic panel (11/30/2024 5:09 AM CDT) Sodium 132(L) 135 - 145 mmol/L Potassium, pl 3.8 3.3 - 4.9 mmol/L [facility] Chloride 102 97 - 110 mmol/L [facility] [...] 8.5 - 10.3 mg/dL [facility] Blood 11/30/2024 5:09 AM CDT 11/30/2024 5:16 AM CDT us Leanne Dockery MD LAB BLOOD ORDERABLES Final Re sult [facility] [address] Department [place] [address] * NM MPI SPECT (Rest and/or Stress) [...] the Cardiovascular Division is available in the [facility] electronic medical record. Standard myocardial perfusion images [...] the Cardiovascular Division is available in the [facility] electronic medical record. Standard myocardial perfusion images [...] by: Jarrett Martinez M.D. Santana Bansal MD IMG NM PROCEDURES Final Result * Stress Test for Myocardial Perfusion (11/29/2024 2:26 PM CDT) Anatomical Region Laterality Modality Nuclear Medicine 11/29/2024 8:30 AM CDT Narrative 11/30/2024 8:15 [place] [address] MPI Imaging Report Patient Name: AYAD BARNHART R : 1950 Study Date: 11/29/2024 8:30:00 AM Gender: M Tech: Location: [id number] Ref Provider: SANTANA BANSAL Height(Cm): BSA: Weight(Kg): [...] with this study. Electronically Signed By: Chalo MORRIS 11/30/2024 7:28:24 AM CDT Procedure Note Chalo Gaytan MD - 11/30/2024 [place] [address] MPI Imaging Report Patient Name: AYAD BARNHART R : 1950 Study Date: 11/29/2024 8:30:00 AM Gender: M Tech: Location: [address] Provider: SANTANA BANSAL Height(Cm): BSA: Weight(Kg): Heart [...] with this study. Electronically Signed By: Chalo MORRIS 11/30/2024 7:28:24 AM CDT Santana Bansal MD CV STRESS PROCEDURES Final Resu lt * (ABNORMAL) Troponin T high-sensitivity 4-hour (11/29/2024 10:28 AM CDT) Trop T hs 25(H) <=22 ng/L Comment: Interpretive Data For further hscTnT resources including the diagnostic algorithm and an aid in interpretation, copy and paste this link: https://nrl.testMyows.org/show/[email or web address] Current Interpretive Data last revised 2020. Trop T hs delta 0 ng/L [facility] Trop T hs interp Insignificant [facility] Blood 11/29/2024 10:2 8 AM CDT 11/29/2024 10:41 AM CDT Carlos Osborn MD LAB BLOOD ORDERABLES Final Result Performing Organization Address City/[facility]/ZIP Co de Phone Number ANUSHA [address] [employer] [place], [place] [id number] * (ABNORMAL) Troponin T high-sensitivity 2-hour (11/29/2024 9:02 AM CDT) Trop T hs 24(H) <=22 ng/L Comment: Interpretive Data For further hscTnT resources including the diagnostic algorithm and an aid in interpretation, copy and paste this link: https://nrl.Re-Compose.org/show/hsTrop Current Interpretive Data last revised 2020. Trop T hs delta -1 ng/L [facility] Trop T hs interp Insignificant [facility] Blood 11/29/2024 9:02 AM CDT 11/29/2024 9:22 AM CDT Carlos Osborn MD LAB BLOOD ORDERABLES Final Result Performing Organization Address City/[facility]/ZIP Co de Phone Number ANUSHA [id number] [address] [facility] [place] [address] * (ABNORMAL) Troponin T high-sensitivity series (baseline, 2hr, 4hr, 6hr) (11/29/2024 6:13 AM CDT) Trop T hs 25(H) <=22 ng/L Comment: Interpretive Data For further hscTnT resources including the diagnostic algorithm and an aid in interpretation, copy and paste this link: https://nrl.testcatalog.org/show/[email or web address] Current Interpretive Data last revised 2020. Blood 11/29/2024 6:13 AM CDT 11/29/2024 6:22 AM CDT us Carlos Osborn MD LAB BLOOD ORDERABLES Final Result Performing Organization Address City/[facility]/ZIP Co de Phone Number ANUSHA [id number] [facility] [place] [address] * eGFR (11/29/2024 6:13 AM CDT) eGFR [...] 6:13 AM CDT 11/29/2024 6:22 AM CDT us Leanne Dockery MD LAB BLOOD ORDERABLES Final Re sult ANUSHA [place] [id number] [facility] [place] [address] * (ABNORMAL) CBC without differential (11/29/2024 6:13 AM CDT) WBC 12.20(H) 3.80 - 9.90 K/cumm Hgb 10.5(L) 13.0 - 17.5 g/dL CERN[facility] CH Hct 32.6(L) 38.9 - 50.3 % [facility] Plt 321 150 - 400 K/cumm [facility] MPV 9.5 9.1 - 12.3 fL [facility] RBC 3.65(L) 4.30 - 5.80 M/cumm CERNER CH MCV 89.3 81.3 - 96.4 fL CERNER CH MCH 28.8 27.1 - 33.3 pg CERNER MCHC 32.2(L) 32.3 - 35.7 g/dL CERNER CH RDW CV 14.1 11.1 - 14.9 % [facility] RDW SD 46.3 35.7 - 48.1 fL [facility] NRBC abs 0.00 0.00 - 0.01 K/cumm [facility] Blood 11/29/2024 6:13 AM CDT 11/29/2024 6:25 AM CDT us Leanne Dockery MD LAB BLOOD ORDERABLES Final Re sult ANUSHA [place] [id number] [facility] [place] [address] * (ABNORMAL) Basic metabolic panel (11/29/2024 6:13 [...] CH Glucose 112 70 - 199 mg/dL [facility] Comment: Interpretive Data Fasting glucose >/= [...] 2022. Calcium 9.0 8.5 - 10.3 mg/dL [facility] Blood 11/29/2024 6:13 AM CDT 11/29/2024 6:22 AM CDT us Leanne Dockery MD LAB BLOOD ORDERABLES Final Re sult [facility] [id number] Department [place] [address] * XR Chest 1 View (11/28/2024 10:11 [...] AM CDT) 11/28/2024 9:39 AM CDT Narrative [facility] - 11/28/2024 12:53 PM CDT Vent Rate: 51 bpm RR Interval: 1162 msec OK Interval: 258 msec QRS Duration: 118 msec QT Interval: 442 msec QTC Interval: 419 msec P-R-T [place]: -76 - 2 - 21 degrees IMPRESSION: SINUS BRADYCARDIA WITH FIRST DEGREE AV BLOCK WITH OCCASIONAL SUPRAVENTRICULAR PREMATURE COMPLEXES SEPTAL MYOCARDIAL INFARCTION , OF INDETERMINATE AGE [40+ ms Q WAVE IN V1/V2] ABNORMAL ECG NO CHANGE FROM PREVIOUS TRACING NOTED Electronically Signed By: Murphy Gaitan MD Carlos Osborn MD ECG ORDERABLES Julee l Result [facility] * eGFR (11/28/2024 9:37 AM CDT) eGFR [...] 9:37 AM CDT 11/28/2024 10:36 AM CDT Leanne Dockery MD LAB BLOOD ORDERABLES Final Re sult Performing Organization Address City/[facility]/ZIP Co de Phone Number ANUSHA DIXON [address] [place] [address] * (ABNORMAL) CBC without differential (11/28/2024 9:37 AM CDT) WBC 20.83(H) 3.80 - 9.90 K/cumm Hgb 10.6(L) 13.0 - 17.5 g/dL [facility] Hct 32.7(L) 38.9 - 50.3 % [facility] Plt 298 150 - 400 K/cumm [facility] MPV 9.8 9.1 - 12.3 fL [facility] RBC 3.65(L) 4.30 - 5.80 M/cumm [facility] MCV 89.6 81.3 - 96.4 fL [facility] MCH 29.0 27.1 - 33.3 pg [facility] MCHC 32.4 32.3 - 35.7 g/dL [facility] RDW CV 14.1 11.1 - 14.9 % [facility] RDW SD 46.5 35.7 - 48.1 fL [facility] NRBC abs 0.00 0.00 - 0.01 K/cumm [facility] Blood 11/28/2024 9:37 AM CDT 11/28/2024 10:37 AM CDT Leanne Dockery MD LAB BLOOD ORDERABLES Final Re sult Performing Organization Address City/[facility]/ZIP Co de Phone Number ANUSHA DIXON [address] Department of [employer] [place], [place] [id number] * (ABNORMAL) Basic metabolic panel (11/28/2024 9:37 AM CDT) [facility] Sodium 131(L) 135 - 145 mmol/L Potassium, pl 3.8 3.3 - 4.9 mmol/L [facility] Chloride 100 97 - 110 mmol/L [facility] CO2 21(L) 22 - 32 mmol/L [facility] Anion gap 10 2 - 15 mmol/L [facility] BUN 16 6 - 25 mg/dL [facility] Creatinine 0.74(L) 0.80 - 1.30 mg/dL [facility] Glucose 104 70 - 199 mg/dL [facility] Comment: Interpretive Data Fasting glucose >/= [...] 2022. Calcium 8.9 8.5 - 10.3 mg/dL [facility] Blood 11/28/2024 9:37 AM CDT 11/28/2024 10:36 AM CDT us eLanne Dockery MD LAB BLOOD ORDERABLES Final Re sult [facility] [id number] Department [place] [address] * Respiratory pathogen panel Nasopharyngeal (11/27/2024 3:27 PM CDT) [facility] Influenza A RNA Not Detected Not Detected Influenza B RNA Not Detected Not Detected [facility] RSV RNA Not Detected Not Detected [facility] COVID-19 RNA Not Detected Not Detected [facility] Coronavirus 229E RNA Not Detected Not Detected [facility] Coronavirus HKU1 RNA Not Detected Not Detected [facility] Coronavirus NL63 RNA Not Detected Not Detected [facility] Coronavirus OC43 RNA Not Detected Not Detected [facility] Adenovirus DNA Not Detected Not Detected [facility] Metapneumovirus RNA Not Detected Not Detected [facility] Rhinovirus/Enterov irus RNA Not Detected Not Detected [facility] Parainfluenza 1 RNA Not Detected Not Detected [facility] Parainfluenza 2 RNA Not Detected Not Detected [facility] Parainfluenza 3 RNA Not Detected Not Detected [facility] Parainfluenza 4 RNA Not Detected Not Detected [facility] B. pertussis DNA Not Detected Not Detected [facility] B. parapertussis DNA Not Detected Not Detected [facility] C. pneumoniae DNA Not Detected Not Detected [facility] M. pneumoniae DNA Not Detected Not Detected [facility] Comment: Interpretive Data [employer] FilmArray Respiratory Panel (RP2.1) assay is a [...] assay has FDA clearance for testing of FIELD RECRUITER swabs. The performance characteristics of this assay have been determined by [facility]. Current interpretive data was last revised on 2020. Nasopharyngeal 11/27/2024 3: 27 PM CDT 11/27/2024 3:40 PM CDT Narrative ANUSHA - 11/27/2024 4:42 PM CDT Is the Patient experiencing symptoms consistent with COVID?->Yes Surveillance testing for transplant patient?->No Rickie Chew MD LAB MICROBIOLOGY - [facility] Final Result ANUSHA [address] Department [place] [address] CH * Blood culture Blood (11/27/2024 11:41 AM CDT) Report Final Report: No growth Comment:Testing performed by : [facility], [address] [facility], [place]., [address] Blood 11/27/2024 11:4 1 AM CDT 11/27/2024 1:49 PM CDT Narrative ANUSHA [facility] 12/01/2024 4:00 PM CDT From a different [...] characteristics have been verified by the [facility] Microbiology Laboratory. For questions about this culture, contact the Microbiology Laboratory at [phone]. Interpretive data was last revised on 24. Leanne Dockery MD LAB MICROBIOLOGY - GENERAL OR DERABLES Final Result ANUSHA [address] Department [place] [address] * Blood culture Blood (11/27/2024 11:41 AM CDT) Report Final Report: No growth Comment:Testing performed by : [facility], [address] [place] [address]., [address] Blood 11/27/2024 11:4 1 AM CDT 11/27/2024 1:49 PM CDT Narrative ANUSHA DIXON - 12/01/2024 4:00 PM CDT Collection->Peripheral 1. [...] characteristics have been verified by the [facility] Microbiology Laboratory. For questions about this culture, contact the Microbiology Laboratory at [phone]. Interpretive data was last revised on 24. us Leanne Dockery MD LAB MICROBIOLOGY - GENERAL OR DERABLES Final Result Performing Organization Address City/[facility]/ZIP Co de Phone Number ANUSHA DIXON [address] Department [place] [address] * Sepsis Lactate w/ Reflex (11/27/2024 4:57 AM CDT) Pathologist [facility] Sepsis Lactate 0.7 0.7 - 2.0 mmol/L Blood 11/27/2024 4:57 AM CDT 11/27/2024 5:11 AM CDT us Riri Fish MD LAB BLOOD ORDERABL ES Final Result Performing Organization Address [facility] Co de Phone Number ANUSHA DIXON [address] Department [place] [address] * (ABNORMAL) Differential, auto (11/27/2024 4:57 AM CDT) Pathologist [facility] Neutrophil abs 29.89(H) 1.50 - 6.50 K/cumm Imm gran abs 0.43(H) 0.00 - 0.10 K/cumm [facility] Lymphocyte abs 1.34 0.80 - 3.30 K/cumm [facility] Monocyte abs 1.75(H) 0.20 - 0.80 K/cumm [facility] Eosinophil abs 0.02 0.00 - 0.50 K/cumm [facility] Basophil abs 0.08 0.00 - 0.10 K/cumm [facility] Neutrophil pct 89.2 % [facility] Comment: Interpretive Data Percent cell count reference ranges are not reported, since discordance with absolute values may lead to misinterpretation of CBC data. Current Interpretive Data was last revised on 2017. Imm gran pct 1.3 % [facility] Comment: Interpretive Data Percent cell count reference ranges are not reported, since discordance with absolute values may lead to misinterpretation of CBC data. Current Interpretive Data was last revised on 2017. Lymphocyte pct 4.0 % [facility] Comment: Interpretive Data Percent cell count reference ranges are not reported, since discordance with absolute values may lead to misinterpretation of CBC data. Current Interpretive Data was last revised on 2017. Monocyte pct 5.2 % [facility] Comment: Interpretive Data Percent cell count reference ranges are not reported, since discordance with absolute values may lead to misinterpretation of CBC data. Current Interpretive Data was last revised on 2017. Eosinophil pct 0.1 % [facility] Comment: Interpretive Data Percent cell count reference ranges are not reported, since discordance with absolute values may lead to misinterpretation of CBC data. Current Interpretive Data was last revised on 2017. Basophil pct 0.2 % [facility] Comment: Interpretive Data Percent cell count reference ranges are not reported, since discordance with absolute values may lead to misinterpretation of CBC data. Current Interpretive Data was last revised on 2017. Blood 11/27/2024 4:57 AM CDT 11/27/2024 5:13 AM CDT us Riri Fish MD LAB BLOOD ORDERABL ES Final Result [facility] [address] Department [place] [address] * (ABNORMAL) CBC with auto differential (11/27/2024 4:57 AM CDT) WBC 33.51(H) 3.80 - 9.90 K/cumm Hgb 11.3(L) 13.0 - 17.5 g/dL [facility] Hct 33.8(L) 38.9 - 50.3 % [facility] Plt 337 150 - 400 K/cumm [facility] MPV 9.2 9.1 - 12.3 fL [facility] RBC 3.86(L) 4.30 - 5.80 M/cumm [facility] MCV 87.6 81.3 - 96.4 fL [facility] MCH 29.3 27.1 - 33.3 pg [facility] MCHC 33.4 32.3 - 35.7 g/dL [facility] RDW CV 14.1 11.1 - 14.9 % [facility] RDW SD 45.3 35.7 - 48.1 fL [facility] NRBC abs 0.00 0.00 - 0.01 K/cumm [facility] Morphologic Screen Results confirmed by manual morphology review. [facility] Blood 11/27/2024 4:57 AM CDT 11/27/2024 5:13 AM CDT us Riri Fish MD LAB BLOOD ORDERABL ES Edited Result - Final [facility] [address] Department [place] [address] * Blood culture Blood (11/27/2024 4:57 AM CDT) Report Final Report: No growth Comment:Testing performed by : [facility], [address] [place]., [address] Blood 11/27/2024 4:57 AM CDT 11/27/2024 8:51 AM CDT Narrative [facility] - 12/01/2024 12:00 PM CDT From a different site than [...] characteristics have been verified by the [facility] Microbiology Laboratory. For questions about this culture, contact the Microbiology Laboratory at [phone]. Interpretive data was last revised on 24. Riri Fish MD LAB MICROBIOLOGY - GENERAL ORDERABLES Final Result ANUSHA [address] Department [place] [address] * Blood culture Blood (11/27/2024 4:57 AM CDT) Report Final Report: No growth Comment:Testing performed by : [facility], [address] [place]., [address] Blood 11/27/2024 4:57 AM CDT 11/27/2024 8:51 AM CDT Narrative ANUSHA DIXON - 12/01/2024 12:00 PM CDT Collection->Peripheral 1. Blood cultures are [...] characteristics have been verified by the [facility] Microbiology Laboratory. For questions about this culture, contact the Microbiology Laboratory at [phone]. Interpretive data was last revised on 24. us Riri Fish MD LAB MICROBIOLOGY - GENERAL ORDERABLES Final Result ANUSHA DIXON [address] Department [place] [address] * CT Chest Abdomen Pelvis WO Contrast (11/26/2024 6:20 PM CDT) Anatomical Region Laterality Modality Body N/A Computed Tomogra phy 11/27/2024 7:15 AM CDT Addenda Addendum by Migue Falk MD on 12/01/2024 3:33 PM CDT Correction TECHNIQUE: Computed tomographic examination the chest, abdomen and pelvis was performed without intravenous contrast using standard protocol. Edited by: Nic Garrison Electronically signed by: Migue Falk M.D., MPH Impressions 11/27/2024 7:15 AM CDT 1. Possible underlying cystitis. 2. Recommend follow up of the Incidental cecal thickening Additional Imaging In 1 Month with referral to gastroenterology and possible endoscopy. 3. High attenuation of the renal. Metastases that may represent medullary nephrocalcinosis or underlying dehydration state.. Electronically signed by: Migue Falk M.D., MPH Narrative 11/27/2024 7:15 AM CDT EXAMINATION: CT CHEST ABDOMEN PELVIS WO CONTRAST [...] supraclavicular mediastinal or hilar lymphadenopathy measuring greater than 10 mm. Changes compatible with prior coronary artery [...] conceivably medullary nephrocalcinosis. There is diffuse atherosclerotic disease of the aorta and branch vessels. There is [...] blastic lesions. Multilevel degenerative disc disease noted. Procedure Note Migue Falk MD - 11/27/2024 EXAMINATION: CT CHEST ABDOMEN PELVIS WO CONTRAST [...] supraclavicular mediastinal or hilar lymphadenopathy measuring greater than 10 mm. Changes compatible with prior coronary artery [...] conceivably medullary nephrocalcinosis. There is diffuse atherosclerotic disease of the aorta and branch vessels. There is [...] blastic lesions. Multilevel degenerative disc disease noted. IMPRESSION: 1. Possible underlying cystitis. 2. Recommend follow up of the Incidental cecal thickening Additional Imaging In 1 Month with referral to gastroenterology and possible endoscopy. 3. High attenuation of the renal. Metastases that may represent medullary nephrocalcinosis or underlying dehydration state.. Electronically signed by: Migue Falk M.D., MPH us Riri Fish MD IMG CT PROCEDURES Edited Result - Final * POCT glucose (11/26/2024 5:03 PM CDT) Glucose, POC 114 70 - 199 mg/dL POC Performer [id number] ANUSHA DIXON Blood 11/26/2024 5:03 PM CDT 11/26/2024 5:03 PM CDT us Riir Fish MD LAB POCT ORDERABLE S - DEVICE Final Result ANUSHA DIXON [address] Department [place] [address] * XR Chest 1 View (11/25/2024 4:43 PM CDT) Anatomical Region Laterality Modality Body, Chest N/A Computed Radiogr aphy 11/26/2024 6:29 AM CDT Impressions 11/26/2024 6:29 AM CDT Comparison with 2024. The lung volumes are small resulting in pulmonary vascular crowding. There is no focal pneumonic consolidation pneumothorax or pleural effusion. There is a tortuous atherosclerotic aorta. There is mild cardiomegaly. Sternal wires are midline and nondisplaced. Electronically signed by: Migue Falk M.D., MPH Narrative 11/26/2024 6:29 AM CDT EXAMINATION: XR CHEST 1 VIEW Procedure Note Migue Falk MD - 11/26/2024 EXAMINATION: XR CHEST 1 VIEW IMPRESSION: Comparison with 2024. The lung volumes are small resulting in pulmonary vascular crowding. There is no focal pneumonic consolidation pneumothorax or pleural effusion. There is a tortuous atherosclerotic aorta. There is mild cardiomegaly. Sternal wires are midline and nondisplaced. Electronically signed by: Migue Falk M.D., MPH us Riri Fish MD IMG XR PROCEDURES Final Result * eGFR (11/25/2024 2:54 PM CDT) eGFR 88 >=60 mL/min/1. 73 m2 Comment: Interpretive Data [...] interpretive data was last reviewed 2021. Blood 11/25/2024 2:54 PM CDT 11/25/2024 3:13 PM CDT us Riri Fish MD LAB BLOOD ORDERABL ES Final Result ANUSHA [address] Department [place] [address] * (ABNORMAL) Differential, auto (11/25/2024 2:54 PM CDT) Neutrophil abs 7.85(H) 1.50 - 6.50 K/cumm Imm gran abs 0.03 0.00 - 0.10 K/cumm [facility] Lymphocyte abs 1.34 0.80 - 3.30 K/cumm [facility] Monocyte abs 0.70 0.20 - 0.80 K/cumm [facility] Eosinophil abs 0.23 0.00 - 0.50 K/cumm [facility] Basophil abs 0.02 0.00 - 0.10 K/cumm ANUSHA Neutrophil pct 77.1 % [facility] Comment: Interpretive Data Percent cell count reference ranges are not reported, since discordance with absolute values may lead to misinterpretation of CBC data. Current Interpretive Data was last revised on 2017. Imm gran pct 0.3 % ANUSHA Comment: Interpretive Data Percent cell count reference ranges are not reported, since discordance with absolute values may lead to misinterpretation of CBC data. Current Interpretive Data was last revised on 2017. Lymphocyte pct 13.2 % ANUSHA Comment: Interpretive Data Percent cell count reference ranges are not reported, since discordance with absolute values may lead to misinterpretation of CBC data. Current Interpretive Data was last revised on 2017. Monocyte pct 6.9 % ANUSHA Comment: Interpretive Data Percent cell count reference ranges are not reported, since discordance with absolute values may lead to misinterpretation of CBC data. Current Interpretive Data was last revised on 2017. Eosinophil pct 2.3 % ANUSHA Comment: Interpretive Data Percent cell count reference ranges are not reported, since discordance with absolute values may lead to misinterpretation of CBC data. Current Interpretive Data was last revised on 2017. Basophil pct 0.2 % ANUSHA Comment: Interpretive Data Percent cell count reference ranges are not reported, since discordance with absolute values may lead to misinterpretation of CBC data. Current Interpretive Data was last revised on 2017. Blood 11/25/2024 2:54 PM CDT 11/25/2024 3:13 PM CDT us Riri Fish MD LAB BLOOD ORDERABL ES Final Result ANUSHA [address] Department [place] [address] * (ABNORMAL) CBC with auto differential (11/25/2024 2:54 PM CDT) WBC 10.17(H) 3.80 - 9.90 K/cumm Hgb 11.8(L) 13.0 - 17.5 g/dL [facility] Hct 35.2(L) 38.9 - 50.3 % [facility] Plt 331 150 - 400 K/cumm [facility] MPV 9.4 9.1 - 12.3 fL [facility] RBC 4.03(L) 4.30 - 5.80 M/cumm [facility] MCV 87.3 81.3 - 96.4 fL [facility] MCH 29.3 27.1 - 33.3 pg [facility] MCHC 33.5 32.3 - 35.7 g/dL [facility] RDW CV 13.5 11.1 - 14.9 % [facility] RDW SD 43.8 35.7 - 48.1 fL [facility] NRBC abs 0.00 0.00 - 0.01 K/cumm [facility] Blood 11/25/2024 2:54 PM CDT 11/25/2024 3:13 PM CDT Riri Fish MD LAB BLOOD ORDERABL ES Final Result [facility] [address] Department of Laboratories [place] [phone] * (ABNORMAL) Comprehensive metabolic panel (11/25/2024 2:54 PM CDT) Sodium 132(L) 135 - 145 mmol/L Potassium, pl 3.5 3.3 - 4.9 mmol/L [facility] Chloride 100 97 - 110 mmol/L [facility] CO2 21(L) 22 - 32 mmol/L [facility] Anion gap 11 2 - 15 mmol/L [facility] BUN 12 6 - 25 mg/dL [facility] Creatinine 0.91 0.80 - 1.30 mg/dL [facility] Glucose 107 70 - 199 mg/dL [facility] Comment: Interpretive Data Fasting glucose >/= 126 [...] 2022. Calcium 9.5 8.5 - 10.3 mg/dL [facility] Bilirubin, total 0.4 0.1 - 1.2 mg/dL [facility] Protein, pl 6.6 6.5 - 8.5 g/dL [facility] Albumin 3.7 3.5 - 5.0 g/dL [facility] Alk phos 114 40 - 130 Units/L [facility] ALT 24 7 - 55 Units/L [facility] AST 24 10 - 50 Units/L [facility] Blood 11/25/2024 2:54 PM CDT 11/25/2024 3:13 PM CDT us Riri Fish MD LAB BLOOD ORDERABL ES Final Result Performing Organization Address City/[facility] Co de Phone Number [facility] [address] Department [place] [address] * Infection Prevention Bambi auris PCR, surveillance Axilla/Groin (11/25/2024 12:38 PM CDT) Bambi auris DNA Not Detected Not Detected [facility] Comment: Interpretive Data Testing performed by [facility] Molecular Infectious Disease Laboratory using the Reilly gabe 6800 Bambi auris assay. This assay detects DNA from Bambi auris using Real-Time PCR. This assay is laboratory developed and is not cleared by the [facility] Food and Drug Administration. The performance characteristics have been verified by the [facility] Molecular Infectious Disease Laboratory. Testing performed by: [facility], [address] [place]., [address] Axilla/Groin 11/25/2024 12:3 8 PM CDT 11/25/2024 3:32 PM CDT us Mary Fontaine MD LAB MICROBIOLOGY - GENER AL ORDERABLES Final Result ANUSHA DIXON [address] Department [place] [address] [facility] * Urinalysis reflex to microscopic and culture Urine (11/25/2024 9:24 AM CDT) Color, ur Yellow Yellow Clarity, ur Clear Clear [facility] Specific gravity, ur 1.010 1.003 - 1.030 [facility] pH, urine 6.5 [facility] Comment: Interpretive Data U rine pH is affected by diet, medications, systemic acid-base disturbances, and renal tubular function. pH may affect urinary stone formation. For example, urine pH below 6.0 may help reduce the tendency for calcium phosphate stones and pH greater than 6.0 may reduce the tendency for uric acid stone formation. Source: [facility] [employer] Current Interpretive Data was last revised on 2017 Protein, ur ql Negative Negative [facility] Glucose, ur ql Negative Negative [facility] Ketones, ur Negative Negative [facility] Bilirubin, ur Negative Negative [facility] Blood, ur Negative Negative [facility] Urobilinogen, ur <2.0 <2.0 mg/dL [facility] Nitrite, ur Negative Negative [facility] Leukocyte esterase, ur Negative Negative [facility] UA reflex comment Reflex conditions for microscopic UA and culture not met. [facility] Urine 11/25/2024 9:24 AM CDT 11/25/2024 9:33 AM CDT Riri Fish MD LAB MICROBIOLOGY - GENERAL ORDERABLES Final Result Performing Organization Address [facility] Co de Phone Number ANUSHA DIXON [address] Department [place] [address] * eGFR (11/21/2024 5:49 AM CDT) eGFR 90 >=60 mL/min/1. 73 [...] interpretive data was last reviewed 2021. Blood 11/21/2024 5:49 AM CDT 11/21/2024 6:20 AM CDT us Riri Fish MD LAB BLOOD ORDERABL ES Final Result [facility] [address] Department [place] [address] * Differential, auto (11/21/2024 5:49 AM CDT) Neutrophil abs 5.36 1.50 - 6.50 K/cumm Imm gran abs 0.04 0.00 - 0.10 K/cumm [facility] Lymphocyte abs 1.81 0.80 - 3.30 K/cumm [facility] Monocyte abs 0.80 0.20 - 0.80 K/cumm [facility] Eosinophil abs 0.37 0.00 - 0.50 K/cumm [facility] Basophil abs 0.06 0.00 - 0.10 K/cumm [facility] Neutrophil pct 63.5 % [facility] Comment: Interpretive Data Percent cell count reference ranges are not reported, since discordance with absolute values may lead to misinterpretation of CBC data. Current Interpretive Data was last revised on 2017. Imm gran pct 0.5 % [facility] Comment: Interpretive Data Percent cell count reference ranges are not reported, since discordance with absolute values may lead to misinterpretation of CBC data. Current Interpretive Data was last revised on 2017. Lymphocyte pct 21.4 % [facility] Comment: Interpretive Data Percent cell count reference ranges are not reported, since discordance with absolute values may lead to misinterpretation of CBC data. Current Interpretive Data was last revised on 2017. Monocyte pct 9.5 % [facility] Comment: Interpretive Data Percent cell count reference ranges are not reported, since discordance with absolute values may lead to misinterpretation of CBC data. Current Interpretive Data was last revised on 2017. Eosinophil pct 4.4 % [facility] Comment: Interpretive Data Percent cell count reference ranges are not reported, since discordance with absolute values may lead to misinterpretation of CBC data. Current Interpretive Data was last revised on 2017. Basophil pct 0.7 % [facility] Comment: Interpretive Data Percent cell count reference ranges are not reported, since discordance with absolute values may lead to misinterpretation of CBC data. Current Interpretive Data was last revised on 2017. Blood 11/21/2024 5:49 AM CDT 11/21/2024 6:20 AM CDT us Riri Fish MD LAB BLOOD ORDERABL ES Final Result [facility] [id number] Department [place] [address] * (ABNORMAL) CBC with auto differential (11/21/2024 5:49 AM CDT) WBC 8.44 3.80 - 9.90 K/cumm Hgb 12.5(L) 13.0 - 17.5 g/dL [facility] Hct 38.5(L) 38.9 - 50.3 % [facility] Plt 337 150 - 400 K/cumm [facility] MPV 9.5 9.1 - 12.3 fL [facility] RBC 4.28(L) 4.30 - 5.80 M/cumm [facility] MCV 90.0 81.3 - 96.4 fL [facility] MCH 29.2 27.1 - 33.3 pg [facility] MCHC 32.5 32.3 - 35.7 g/dL [facility] RDW CV 13.8 11.1 - 14.9 % [facility] RDW SD 45.7 35.7 - 48.1 fL [facility] NRBC abs 0.00 0.00 - 0.01 K/cumm [facility] Blood 11/21/2024 5:49 AM CDT 11/21/2024 6:20 AM CDT us Riri Fish MD LAB [place]LOOD [place] [id number] [address] Department [place] [address] * Comprehensive metabolic panel (11/21/2024 5:49 AM CDT) Sodium 136 135 - 145 mmol/L Potassium, pl 4.2 3.3 - 4.9 mmol/L [facility] Chloride 102 97 - 110 mmol/L [facility] CO2 22 22 - 32 mmol/L [facility] Anion gap 12 2 - 15 mmol/L [facility] BUN 17 6 - 25 mg/dL [facility] Creatinine 0.86 0.80 - 1.30 mg/dL [facility] Glucose 96 70 - 199 mg/dL [facility] Comment: [...] interpretive data was last revised 2022. Calcium 9.8 8.5 - 10.3 mg/dL [facility] Bilirubin, total 0.5 0.1 - 1.2 mg/dL [facility] Protein, pl 7.1 6.5 - 8.5 g/dL [facility] Albumin 4.0 3.5 - 5.0 g/dL [facility] Alk phos 105 40 - 130 Units/L [facility] ALT 18 7 - 55 Units/L [facility] AST 22 10 - 50 Units/L [facility] Blood 11/21/2024 5:49 AM CDT 11/21/2024 6:20 AM CDT us Riri Fish MD LAB BLOOD ORDERABL ES Final Result Performing Organization Address [facility] Co de Phone Number [facility] [address] [place] [address] * POCT glucose (11/17/2024 4:38 PM CDT) Glucose, POC 128 70 - 199 mg/dL POC Performer [id number] [facility] Blood 11/17/2024 4:38 PM CDT 11/17/2024 4:38 PM CDT us Carlos Osborn MD LAB POCT ORDERABLES - DEVICE Final Result Performing Organization Address [facility] Co de Phone Number [facility] [address] [place] [address] * eGFR (11/17/2024 4:24 AM CDT) eGFR 86 >=60 mL/min/1. 73 m2 Comment: Interpretive Data [...] interpretive data was last reviewed 2021. Blood 11/17/2024 4:24 AM CDT 11/17/2024 5:30 AM CDT [facility] FIELD RECRUITER LAB BLOOD ORDERABLE S Final Result Performing Organization Address City/[facility]/ZIP Co de Phone Number ANUSHA [address] [address] Department [place] [address] * (ABNORMAL) Basic metabolic panel (11/17/2024 4:24 AM CDT) Pathologist [facility] Sodium 133(L) 135 - 145 mmol/L Potassium, pl 4.2 3.3 - 4.9 mmol/L [facility] Chloride 98 97 - 110 mmol/L [facility] CO2 21(L) 22 - 32 mmol/L [facility] Anion gap 14 2 - 15 mmol/L [facility] BUN 23 6 - 25 mg/dL [facility] Creatinine 0.93 0.80 - 1.30 mg/dL [facility] Glucose 115 70 - 199 mg/dL [facility] Comment: Interpretive Data Fasting glucose >/= [...] interpretive data was last revised 2022. Calcium 9.8 8.5 - 10.3 mg/dL [facility] Blood 11/17/2024 4:24 AM CDT 11/17/2024 5:30 AM CDT Rosa Agrawal FIELD RECRUITER LAB BLOOD ORDERABLE S Final Result Performing Organization Address City/[facility]/ZIP Co de Phone Number ANUSHA [address] [place] [address] * EEG (11/16/2024 10:41 AM CDT) Anatomical Region Laterality Modality EEG Narrative 11/16/2024 1:16 PM CDT This EEG was performed for evaluation of [...] wakefulness and drowsiness. Clinical correlation is recommended. 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 Multi vascular distribution raise the possibility of either embolic phenomenon versus watershed infarcts. Significant atrophy and small vessel disease. Old hemorrhagic changes. Electronically signed by: Yordan Dai M.D. Narrative 11/16/2024 9:57 AM CDT EXAMINATION: MRI BRAIN WO CONTRAST HISTORY: 74-year-old man strokelike symptoms history of heart disease hypertension vascular disease TECHNIQUE: Multiplanar multisequence spin-echo images obtained FINDINGS: Correlation is made with an MRI [...] voids within the left vertebral artery with a small caliber right vertebral artery incompletely seen. Basilar artery patent. Intracranial internal carotid arteries, anterior middle cerebral arteries patent. Deep venous sinuses appear to be patent. Bilateral cataract surgery. Paranasal sinuses and mastoid air cells normally pneumatized. Susceptibility images demonstrate a punctate hemosiderin stain in the medulla dorsally, the right occipital region, small area in the left occipital region, left frontal region, right parietal lobe, left frontal lobe. Procedure Note Yordan Dai MD - 11/16/2024 EXAMINATION: MRI BRAIN WO CONTRAST HISTORY: 74-year-old man strokelike symptoms history of heart disease hypertension vascular disease TECHNIQUE: Multiplanar multisequence spin-echo images obtained FINDINGS: Correlation is made with an MRI [...] voids within the left vertebral artery with a small caliber right vertebral artery incompletely seen. Basilar artery patent. Intracranial internal carotid arteries, anterior middle cerebral arteries patent. Deep venous sinuses appear to be patent. Bilateral cataract surgery. Paranasal sinuses and mastoid air cells normally pneumatized. Susceptibility images demonstrate a punctate hemosiderin stain in the medulla dorsally, the right occipital region, small area in the left occipital region, left frontal region, right parietal lobe, left frontal lobe. 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 Multi vascular distribution raise the possibility of either embolic phenomenon versus watershed infarcts. Significant atrophy and small vessel disease. Old hemorrhagic changes. Electronically signed by: Yordan Dai M.D. Ricky Hector II, MD IMG MRI PROCEDURES Final Res ult * Blood culture Blood (11/15/2024 5:23 PM CDT) Report Final Report: No growth Comment:Testing performed by : [facility], [address] [place] [address] Blood 11/15/2024 5:23 PM CDT 11/15/2024 8:43 PM CDT Abbey TAVARES - 11/20/2024 7:00 AM CDT From a different site than #1. [...] characteristics have been verified by the [facility] Microbiology Laboratory. For questions about this culture, contact the Microbiology Laboratory at [phone]. Interpretive data was last revised on 24. us Gris Cooper NP LAB MICROBIOLOGY - GENERAL O RDERABLES Final Result Performing Organization Address [facility]/ZIP Co de Phone Number ANUSHA DIXON [address] [address] [place] [address] * Blood culture Blood (11/15/2024 5:14 PM CDT) Report Final Report: No growth Comment:Testing performed by : [facility], [address] [facility], [place]., [address] Blood 11/15/2024 5:14 PM CDT 11/15/2024 8:43 PM CDT Narrative ANUSHA - 11/20/2024 7:00 AM CDT Collection->Peripheral 1. Blood cultures are incubated [...] characteristics have been verified by the [facility] Microbiology Laboratory. For questions about this culture, contact the Microbiology Laboratory at [phone]. Interpretive data was last revised on 24. Gris Cooper NP LAB MICROBIOLOGY - GENERAL O RDERABLES Final Result Performing Organization Address [facility]/ZIP Co de Phone Number ANUSHA D[place]ON [address] [address] [place] [address] * CTA/CTP Rapid Stroke (C) (11/15/2024 7:28 AM CDT) Anatomical Region Laterality Modality Head and Neck N/A Computed Tomogra phy 11/15/2024 7:23 AM CDT Impressions 11/15/2024 8:[address] evidence of stroke. No significant carotid artery stenosis. Diffuse arteriosclerosis. 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 Electronically signed by: Yordan Dai M.D. Narrative 11/15/2024 8:23 AM CDT EXAMINATION: Computed tomography angiography (CTA) of the [...] The data was transmitted to a separate workstation for processing by RAPID software ([email or web address]) to produce automated calculations of the estimated cerebral blood flow and Tmax. Contrast information: 120 mL Optiray-350 COMPARISON: 10/25/2024 and a CAT scan without contrast earlier today. FINDINGS: HEAD CT FINDINGS: Source images demonstrate stable involutional changes with mild prominence of the ventricles and sulci. Normal vascular enhancement is seen within the deep venous sinuses and skull valley of [place]. No definitive oligemic areas are seen. No abnormal intracranial enhancement is seen. Great vessels the neck are patent with dominance of the left vertebral artery. Calcification is seen at the carotid bifurcations and cavernous carotid arteries. Aortic arch calcifications are seen without aneurysmal dilatation or dissection. Coronary artery calcifications are noted. Lung apices demonstrate no abnormalities. 2-D and 3-D images: ANGIOGRAPHIC FINDINGS: The visualized aortic arch appears normal [...] ICA terminus: Atherosclerotic calcifications without high-grade stenosis. L M1: no occlusion or significant stenosis L M2 branches: Dense calcifications with irregularity with mild nonhemodynamically significant stenosis of the trifurcation L A2: no occlusion or significant stenosis. Hypoplastic A1 segment with patent anterior communicating artery. Right anterior circulation: R CCA: Atherosclerotic calcifications without high-grade stenosis. R carotid bifurcation: Atherosclerosis without hemodynamically significant stenosis R ICA proximal: Tortuosity without stenosis R ICA distal: no occlusion or significant stenosis R ICA terminus: Atherosclerotic calcifications without high-grade stenosis R M1: no occlusion or significant stenosis R M2 branches: no occlusion or significant stenosis R A2: no occlusion or significant stenosis. Anterior communicating artery patent Posterior circulation: L Vertebral Artery: no occlusion or significant stenosis. Dominant left vertebral artery. R Vertebral Artery: There is irregularity with multiple areas of moderate stenosis intracranially Basilar Artery: no occlusion or significant stenosis L HUMAN SERVICE SPECIALIST: no occlusion or significant stenosis hypoplastic P1 segment with patent posterior communicating artery R HUMAN SERVICE SPECIALIST: Hypoplastic P1 segment patent posterior communicating artery No cerebral aneurysm is seen. There is no evidence for an arteriovenous malformation. There is no suspicious cervical lymphadenopathy. There is no significant cervical spondylosis. Limited views of the lung apices are normal. CT Perfusion: Estimated ischemic core volume (rCBF < 0.3): 7 mL Estimated hypoperfusion volume (Tmax > 6 sec): 7 mL Hypoperfusion index 0.5. Mismatch volume 0. Mismatch ratio 1.0. Procedure Note Yordan Dai MD - 11/15/2024 EXAMINATION: Computed tomography angiography (CTA) of the [...] The data was transmitted to a separate workstation for processing by RAPID software ([email or web address]) to produce automated calculations of the estimated cerebral blood flow and Tmax. Contrast information: 120 mL Optiray-350 COMPARISON: 10/25/2024 and a CAT scan without contrast earlier today. FINDINGS: HEAD CT FINDINGS: Source images demonstrate stable involutional changes with mild prominence of the ventricles and sulci. Normal vascular enhancement is seen within the deep venous sinuses and skull valley of [place]. No definitive oligemic areas are seen. No abnormal intracranial enhancement is seen. Great vessels the neck are patent with dominance of the left vertebral artery. Calcification is seen at the carotid bifurcations and cavernous carotid arteries. Aortic arch calcifications are seen without aneurysmal dilatation or dissection. Coronary artery calcifications are noted. Lung apices demonstrate no abnormalities. 2-D and 3-D images: ANGIOGRAPHIC FINDINGS: The visualized aortic arch appears normal [...] ICA terminus: Atherosclerotic calcifications without high-grade stenosis. L M1: no occlusion or significant stenosis L M2 branches: Dense calcifications with irregularity with mild nonhemodynamically significant stenosis of the trifurcation L A2: no occlusion or significant stenosis. Hypoplastic A1 segment with patent anterior communicating artery. Right anterior circulation: R CCA: Atherosclerotic calcifications without high-grade stenosis. R carotid bifurcation: Atherosclerosis without hemodynamically significant stenosis R ICA proximal: Tortuosity without stenosis R ICA distal: no occlusion or significant stenosis R ICA terminus: Atherosclerotic calcifications without high-grade stenosis R M1: no occlusion or significant stenosis R M2 branches: no occlusion or significant stenosis R A2: no occlusion or significant stenosis. Anterior communicating artery patent Posterior circulation: L Vertebral Artery: no occlusion or significant stenosis. Dominant left vertebral artery. R Vertebral Artery: There is irregularity with multiple areas of moderate stenosis intracranially Basilar Artery: no occlusion or significant stenosis L HUMAN SERVICE SPECIALIST: no occlusion or significant stenosis hypoplastic P1 segment with patent posterior communicating artery R HUMAN SERVICE SPECIALIST: Hypoplastic P1 segment patent posterior communicating artery No cerebral aneurysm is seen. There is no evidence for an arteriovenous malformation. There is no suspicious cervical lymphadenopathy. There is no significant cervical spondylosis. Limited views of the lung apices are normal. CT Perfusion: Estimated ischemic core volume (rCBF < 0.3): 7 mL Estimated hypoperfusion volume (Tmax > 6 sec): 7 mL Hypoperfusion index 0.5. Mismatch volume 0. Mismatch ratio 1.0. IMPRESSION: No CT evidence of stroke. No significant carotid artery stenosis. Diffuse arteriosclerosis. 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 Electronically signed by: Yordan Dai M.D. Riri Fish MD IMG CT PROCEDURES Final Result * CT Stroke Head WO Contrast (11/15/2024 7:23 AM CDT) Anatomical Region Laterality Modality Head N/A Computed Tomogra phy 11/15/2024 7:20 AM CDT Impressions 11/15/2024 7:42 AM CDT ATROPHY SMALL VESSEL DISEASE ATHEROSCLEROSIS. DEVELOPMENT OF OCCIPITAL INFARCTS GREATER ON THE RIGHT THAN THE LEFT WHICH WAS SEEN ON THE PREVIOUS MRI. NO HEMORRHAGIC CHANGES Electronically signed by: Yordan Dai M.D. Narrative 11/15/2024 7:42 AM CDT EXAMINATION: CT STROKE HEAD WO CONTRAST dated 11/15/2024 7:20 AM. HISTORY: Code stroke 74-year-old man history of hypertension vascular disease heart disease. FINDINGS: Comparison is made with an MRI dated 10/25/2024. Additionally patient has a CAT scan from 10/25/2024. Foundry Manager radiograph demonstrates no acute findings. Transaxial images demonstrate stable involutional changes with large ventricles and sulci beyond expectations of the patient's age. Extensive periventricular lucencies reflect chronic microvascular disease. Since the previous CAT scan interval development of area of low CT attenuation in the right parieto-occipital lobe. Small area seen on the left parieto-occipital lobe. No hemorrhagic findings. No midline shift. Arteriosclerosis. Craniovertebral junction normal. Normal pituitary fossa. Mucosal thickening in the floor the maxillary sinuses. No bony abnormalities Procedure Note Yordan Dai MD - 11/15/2024 EXAMINATION: CT STROKE HEAD WO CONTRAST dated 11/15/2024 7:20 AM. HISTORY: Code stroke 74-year-old man history of hypertension vascular disease heart disease. FINDINGS: Comparison is made with an MRI dated 10/25/2024. Additionally patient has a CAT scan from 10/25/2024. Foundry Manager radiograph demonstrates no acute findings. Transaxial images demonstrate stable involutional changes with large ventricles and sulci beyond expectations of the patient's age. Extensive periventricular lucencies reflect chronic microvascular disease. Since the previous CAT scan interval development of area of low CT attenuation in the right parieto-occipital lobe. Small area seen on the left parieto-occipital lobe. No hemorrhagic findings. No midline shift. Arteriosclerosis. Craniovertebral junction normal. Normal pituitary fossa. Mucosal thickening in the floor the maxillary sinuses. No bony abnormalities IMPRESSION: ATROPHY SMALL VESSEL DISEASE ATHEROSCLEROSIS. DEVELOPMENT OF OCCIPITAL INFARCTS GREATER ON THE RIGHT THAN THE LEFT WHICH WAS SEEN ON THE PREVIOUS MRI. NO HEMORRHAGIC CHANGES Electronically signed by: Yordan Dai M.D. Riri Fish MD IMG CT PROCEDURES Final Result * POCT glucose (11/15/2024 7:10 AM CDT) [facility] Gl[facility], POC 121 70 - 199 mg/dL POC Performer [id number] [facility] Blood 11/15/2024 7:10 AM CDT 11/15/2024 7:10 AM CDT Riri Fish MD LAB POCT ORDERABLE S - DEVICE Final Result [facility] [address] Department [place] [address] * (ABNORMAL) Urinalysis reflex to microscopic and culture Urine (11/15/2024 6:58 AM CDT) Color, ur Rosemary Yellow Clarity, ur Turbid(A) Clear [facility] Specific gravity, ur 1.018 1.003 - 1.030 [facility] pH, urine 5.5 [facility] Comment: Interpretive Data U rine pH is affected by diet, medications, systemic acid-base disturbances, and renal tubular function. pH may affect urinary stone formation. For example, urine pH below 6.0 may help reduce the tendency for calcium phosphate stones and pH greater than 6.0 may reduce the tendency for uric acid stone formation. Source: [facility] Current Interpretive Data was last revised on 2017 Protein, ur ql Trace Negative [facility] Glucose, ur ql Negative Negative [facility] Ketones, ur Negative Negative [facility] Bilirubin, ur Negative Negative [facility] Blood, ur 3+(A) Negative [facility] Urobilinogen, ur <2.0 <2.0 mg/dL [facility] Nitrite, ur Positive(A) Negative [facility] Leukocyte esterase, ur 4+(A) Negative [facility] UA reflex comment Reflex to microscopic UA will be performed. [facility] Urine 11/15/2024 6:58 AM CDT 11/15/2024 8:15 AM CDT us Riri Fish MD LAB MICROBIOLOGY - GENERAL ORDERABLES Final Result Performing Organization Address [facility] de Phone Number ANUSHA DIXON [address] [address] [place] [address] * (ABNORMAL) Urinalysis, microscopic only (11/15/2024 6:58 AM CDT) WBC, ur >50(A) 0 - 5 /HPF RBC, ur >50(A) 0 - 2 /HPF [facility] Epithelial cells, squamous, ur 1-5 0 - 5 /HPF [facility] Bacteria, ur 4+(A) [facility] Mucous, ur Present(A) [facility] Hyaline casts, ur >50(A) 0 - 10 /LPF [facility] Culture Reflex Comment Reflex to urine culture will be performed. [facility] Urine 11/15/2024 6:58 AM CDT 11/15/2024 8:15 AM CDT Riri Fish MD LAB URINE ORDERABL ES Final Result Performing Organization Address [facility] Co de Phone Number ANUSHA DIXON [address] [address] [facility] [place] [address] * (ABNORMAL) Urine culture Urine (11/15/2024 6:58 AM CDT) Report Final Report: Greater than or equal to 100,000 colonies/mL of Klebsiella pneumoniae (.) Comment:Testing performed by : [facility], [address] [place]., [address] Organism KLEBSIELLA PNEUMONIAE [facility] Urine 11/15/2024 6:58 AM CDT 11/15/2024 11:33 AM CDT Narrative [facility] - 11/17/2024 12:28 PM CDT Urine culture reflexed based upon urinalysis results. Testing performed by [facility] Microbiology Laboratory ([phone]) Organism Antibiotic Method Susceptibility Klebsiella pneumoniae Ampicillin INTERPRETATION Resistant Klebsiella pneumoniae Cefazolin INTERPRETATION Susceptible Klebsiella pneumoniae Nitrofurantoin INTERPRETATION Resistant Klebsiella pneumoniae Gentamicin INTERPRETATION Susceptible Klebsiella pneumoniae Trimethoprim with Sulfamethoxazole INTERPRETATION Susceptible Klebsiella pneumoniae Meropenem INTERPRETATION Susceptible Klebsiella pneumoniae Cefepime INTERPRETATION Susceptible Klebsiella pneumoniae Ciprofloxacin INTERPRETATION Susceptible Klebsiella pneumoniae Ceftazidime INTERPRETATION Susceptible Klebsiella pneumoniae Ceftriaxone INTERPRETATION Susceptible Klebsiella pneumoniae Piperacillin/Tazobactam INTERPRE TATION Intermediate Klebsiella pneumoniae Cephalexin INTERPRETATION Susceptible Klebsiella pneumoniae Cefuroxime-axetil INTERPRETATION Susceptible Klebsiella pneumoniae Cefdinir INTERPRETATION Susceptible us Riri Fish MD LAB MICROBIOLOGY - GENERAL ORDERABLES Final Result [facility] [place] [address] [place] [address] * POCT glucose (11/15/2024 6:33 AM CDT) Glucose, POC 137 70 - 199 mg/dL POC Performer [id number] [facility] Blood 11/15/2024 6:33 AM CDT 11/15/2024 6:33 AM CDT us Riri Fish MD LAB POCT ORDERABLE S - DEVICE Final Result Performing Organization Address City/[facility]/ZIP Co de Phone Number ANUSHA [address] [place] [address] * XR Chest 1 View (2024 1:16 PM CDT) Anatomical Region Laterality Modality Body, Chest N/A Computed Radiogr aphy 2024 1:19 PM CDT Impressions 2024 1:19 PM CDT No active disease. Electronically signed by: Solis Stahl M.D. Narrative 2024 1:19 PM CDT EXAMINATION: XR CHEST 1 VIEW HISTORY: The patient is a 74-year-old male who presents with shortness of breath. Comparison made with the previous study dated 10/25/2024. TECHNIQUE: AP portable view of the chest. FINDINGS: Lungs clear. Cardiovascular structures unremarkable. Procedure Note Solis Stahl MD - 2024 EXAMINATION: XR CHEST 1 VIEW HISTORY: The patient is a 74-year-old male who presents with shortness of breath. Comparison made with the previous study dated 10/25/2024. TECHNIQUE: AP portable view of the chest. FINDINGS: Lungs clear. Cardiovascular structures unremarkable. IMPRESSION: No active disease. Electronically signed by: Solis Stahl M.D. Riri Fish MD IMG XR PROCEDURES Final Result * eGFR (2024 10:22 AM CDT) eGFR 72 >=60 mL/min/1. 73 m2 Comment: Interpretive Data [...] interpretive data was last reviewed 2021. Blood 2024 10:2 2 AM CDT 2024 10:31 AM CDT Riri Fish MD LAB BLOOD ORDERABL ES Final Result [facility] [address] Department [place] [address] * (ABNORMAL) Differential, auto (2024 10:22 AM CDT) Neutrophil abs 7.07(H) 1.50 - 6.50 K/cumm Imm gran abs 0.03 0.00 - 0.10 K/cumm [facility] Lymphocyte abs 1.10 0.80 - 3.30 K/cumm [facility] Monocyte abs 0.80 0.20 - 0.80 K/cumm [facility] Eosinophil abs 0.13 0.00 - 0.50 K/cumm [facility] Basophil abs 0.05 0.00 - 0.10 K/cumm [facility] Neutrophil pct 77.1 % [facility] Comment: Interpretive Data Percent cell count reference ranges are not reported, since discordance with absolute values may lead to misinterpretation of CBC data. Current Interpretive Data was last revised on 2017. Imm gran pct 0.3 % [facility] Comment: Interpretive Data Percent cell count reference ranges are not reported, since discordance with absolute values may lead to misinterpretation of CBC data. Current Interpretive Data was last revised on 2017. Lymphocyte pct 12.0 % [facility] Comment: Interpretive Data Percent cell count reference ranges are not reported, since discordance with absolute values may lead to misinterpretation of CBC data. Current Interpretive Data was last revised on 2017. Monocyte pct 8.7 % [facility] Comment: Interpretive Data Percent cell count reference ranges are not reported, since discordance with absolute values may lead to misinterpretation of CBC data. Current Interpretive Data was last revised on 2017. Eosinophil pct 1.4 % [facility] Comment: Interpretive Data Percent cell count reference ranges are not reported, since discordance with absolute values may lead to misinterpretation of CBC data. Current Interpretive Data was last revised on 2017. Basophil pct 0.5 % [facility] Comment: Interpretive Data Percent cell count reference ranges are not reported, since discordance with absolute values may lead to misinterpretation of CBC data. Current Interpretive Data was last revised on 2017. Blood 2024 10:2 2 AM CDT 2024 10:32 AM CDT us Riri Fish MD LAB BLOOD ORDERABL ES Final Result [facility] [id number] Department [place] [address] * (ABNORMAL) CBC with auto differential (2024 10:22 AM CDT) WBC 9.18 3.80 - 9.90 K/cumm Hgb 12.0(L) 13.0 - 17.5 g/dL [facility] Hct 36.3(L) 38.9 - 50.3 % [facility] Plt 370 150 - 400 K/cumm [facility] MPV 9.3 9.1 - 12.3 fL [facility] RBC 4.08(L) 4.30 - 5.80 M/cumm [facility] MCV 89.0 81.3 - 96.4 fL [facility] MCH 29.4 27.1 - 33.3 pg [facility] MCHC 33.1 32.3 - 35.7 g/dL [facility] RDW CV 13.8 11.1 - 14.9 % [facility] RDW SD 45.3 35.7 - 48.1 fL [facility] NRBC abs 0.00 0.00 - 0.01 K/cumm [facility] Blood 2024 10:2 2 AM CDT 2024 10:32 AM CDT us Riricindy Fish MD LAB BLOOD ORDERABL ES Final Result Performing Organization Address City/[facility]/ZIP Co de Phone Number [facility] [address] Department [place] [address] * (ABNORMAL) Comprehensive metabolic panel (2024 10:22 AM CDT) Sodium 132(L) 135 - 145 mmol/L Potassium, pl 4.0 3.3 - 4.9 mmol/L [facility] Chloride 96(L) 97 - 110 mmol/L [facility] CO2 23 22 - 32 mmol/L [facility] Anion gap 13 2 - 15 mmol/L [facility] BUN 21 6 - 25 mg/dL [facility] Creatinine 1.07 0.80 - 1.30 mg/dL [facility] Glucose 136 70 - 199 mg/dL [facility] Comment: [...] interpretive data was last revised 2022. Calcium 10.0 8.5 - 10.3 mg/dL [facility] Bilirubin, total 0.5 0.1 - 1.2 mg/dL [facility] Protein, pl 6.9 6.5 - 8.5 g/dL [facility] Albumin 4.1 3.5 - 5.0 g/dL [facility] Alk phos 104 40 - 130 Units/L [facility] ALT 19 7 - 55 Units/L [facility] AST 25 10 - 50 Units/L [facility] Blood 2024 10:2 2 AM CDT 2024 10:31 AM CDT us Riri Fish MD LAB BLOOD ORDERABL ES Final Result Performing Organization Address City/[facility]/[place] [address] [address] Department [place] [address] * XR Knee Left 1 or 2 Views (11/11/2024 11:14 AM CDT) Anatomical Region Laterality Modality Lower Extremities, Knee Left Computed Radiography 11/11/2024 11:1 5 AM CDT Impressions 11/11/2024 11:15 AM CDT Significant degenerative changes Electronically signed by: Yordan Dai M.D. Narrative 11/11/2024 11:15 AM CDT EXAMINATION: XR KNEE LEFT 1 OR 2 VIEWS HISTORY: Pain FINDINGS: Severe degenerative changes involving the medial joint space. No fracture or dislocation. No effusion. Vascular calcifications Procedure Note Yordan Dai MD - 11/11/2024 EXAMINATION: XR KNEE LEFT 1 OR 2 VIEWS HISTORY: Pain FINDINGS: Severe degenerative changes involving the medial joint space. No fracture or dislocation. No effusion. Vascular calcifications IMPRESSION: Significant degenerative changes Electronically signed by: Yordan Dai M.D. us Riri Fish MD IMG XR PROCEDURES Final Result * ECG 12 lead (11/08/2024 10:57 AM CDT) 11/08/2024 10:5 7 AM CDT Narrative [facility] - 11/08/2024 12:39 PM CDT Vent Rate: 60 bpm RR Interval: 989 msec OK Interval: 269 msec QRS Duration: 107 msec QT Interval: 418 msec QTC Interval: 419 msec P-R-T [place]: 69 - -9 - -3 degrees IMPRESSION: SINUS RHYTHM WITH FIRST DEGREE AV BLOCK WITH OCCASIONAL VENTRICULAR PREMATURE COMPLEXES ABNORMAL ECG Electronically Signed By: Gerard Bauer MD us Riri Fish MD ECG ORDERABLES Fi nal Result [facility] [employer] [facility] * eGFR (11/07/2024 5:31 AM CDT) eGFR >90 >=60 mL/min/1. 73 [...] interpretive data was last reviewed 2021. Blood 11/07/2024 5:31 AM CDT 11/07/2024 5:48 AM CDT us Riri Fish MD LAB BLOOD ORDERABL ES Final Result [facility] [address] Department [place] [address] * Differential, auto (11/07/2024 5:31 AM CDT) Pathologist [facility] Neutrophil abs 4.31 1.50 - 6.50 K/cumm Imm gran abs 0.02 0.00 - 0.10 K/cumm [facility] Lymphocyte abs 1.62 0.80 - 3.30 K/cumm [facility] Monocyte abs 0.62 0.20 - 0.80 K/cumm [facility] Eosinophil abs 0.31 0.00 - 0.50 K/cumm [facility] Basophil abs 0.07 0.00 - 0.10 K/cumm [facility] Neutrophil pct 62.0 % [facility] Comment: Interpretive Data Percent cell count reference ranges are not reported, since discordance with absolute values may lead to misinterpretation of CBC data. Current Interpretive Data was last revised on 2017. Imm gran pct 0.3 % [facility] Comment: Interpretive Data Percent cell count reference ranges are not reported, since discordance with absolute values may lead to misinterpretation of CBC data. Current Interpretive Data was last revised on 2017. Lymphocyte pct 23.3 % [facility] Comment: Interpretive Data Percent cell count reference ranges are not reported, since discordance with absolute values may lead to misinterpretation of CBC data. Current Interpretive Data was last revised on 2017. Monocyte pct 8.9 % [facility] Comment: Interpretive Data Percent cell count reference ranges are not reported, since discordance with absolute values may lead to misinterpretation of CBC data. Current Interpretive Data was last revised on 2017. Eosinophil pct 4.5 % [facility] Comment: Interpretive Data Percent cell count reference ranges are not reported, since discordance with absolute values may lead to misinterpretation of CBC data. Current Interpretive Data was last revised on 2017. Basophil pct 1.0 % [facility] Comment: Interpretive Data Percent cell count reference ranges are not reported, since discordance with absolute values may lead to misinterpretation of CBC data. Current Interpretive Data was last revised on 2017. Blood 11/07/2024 5:31 AM CDT 11/07/2024 5:47 AM CDT us Riri Fish MD LAB BLOOD ORDERABL ES Final Result [facility] [address] Department [place] [address] * (ABNORMAL) CBC with auto differential (11/07/2024 5:31 AM CDT) WBC 6.95 3.80 - 9.90 K/cumm Hgb 11.3(L) 13.0 - 17.5 g/dL [facility] Hct 35.2(L) 38.9 - 50.3 % [facility] Plt 332 150 - 400 K/cumm [facility] MPV 9.2 9.1 - 12.3 fL [facility] RBC 3.82(L) 4.30 - 5.80 M/cumm [facility] MCV 92.1 81.3 - 96.4 fL [facility] MCH 29.6 27.1 - 33.3 pg [facility] MCHC 32.1(L) 32.3 - 35.7 g/dL [facility] RDW CV 13.7 11.1 - 14.9 % [facility] RDW SD 46.8 35.7 - 48.1 fL [facility] NRBC abs 0.00 0.00 - 0.01 K/cumm [facility] Blood 11/07/2024 5:31 AM CDT 11/07/2024 5:47 AM CDT us Riri Fish MD LAB BLOOD ORDERABL ES Final Result [facility] [address] Department [place] [address] * (ABNORMAL) Comprehensive metabolic panel (11/07/2024 5:31 AM CDT) Sodium 136 135 - 145 mmol/L Potassium, pl 4.3 3.3 - 4.9 mmol/L [facility] Chloride 102 97 - 110 mmol/L [facility] CO2 22 22 - 32 mmol/L [facility] Anion gap 12 2 - 15 mmol/L [facility] BUN 14 6 - 25 mg/dL [facility] Creatinine 0.86 0.80 - 1.30 mg/dL [facility] Glucose 101 70 - 199 mg/dL [facility] Comment: Interpretive Data Fasting glucose >/= 126 [...] 9.4 8.5 - 10.3 mg/dL [facility] Bilirubin, total 0.4 0.1 - 1.2 mg/dL [facility] Protein, pl 6.3(L) 6.5 - 8.5 g/dL [facility] Albumin 3.6 3.5 - 5.0 g/dL [facility] Alk phos 92 40 - 130 Units/L [facility] ALT 25 7 - 55 Units/L [facility] AST 29 10 - 50 Units/L [facility] Blood 11/07/2024 5:31 AM CDT 11/07/2024 5:48 AM CDT us Riri Fish MD LAB BLOOD [place] [address] [address] Department [place] [address] * Urinalysis reflex to microscopic and culture Urine (11/03/2024 9:52 AM CDT) Color, ur Yellow Yellow Clarity, ur Clear Clear [facility] Specific gravity, ur 1.017 1.003 - 1.030 [facility] pH, urine 6.5 [facility] Comment: Interpretive Data U rine pH is affected by diet, medications, systemic acid-base disturbances, and renal tubular function. pH may affect urinary stone formation. For example, urine pH below 6.0 may help reduce the tendency for calcium phosphate stones and pH greater than 6.0 may reduce the tendency for uric acid stone formation. Source: [facility] [employer] Current Interpretive Data was last revised on 2017 Protein, ur ql Negative Negative [facility] Glucose, ur ql Negative Negative [facility] Ketones, ur Negative Negative [facility] Bilirubin, ur Negative Negative [facility] Blood, ur Negative Negative [facility] Urobilinogen, ur <2.0 <2.0 mg/dL [facility] Nitrite, ur Negative Negative [facility] Leukocyte esterase, ur Negative Negative [facility] UA reflex comment Reflex conditions for microscopic UA and culture not met. [facility] Urine 11/03/2024 9:52 AM CDT 11/03/2024 10:10 AM CDT us Riri Fish MD LAB MICROBIOLOGY - GENERAL ORDERABLES Final Result [facility] [address] Department [place] [address] * XR Kub (10/31/2024 11:26 AM CDT) Anatomical Region Laterality Modality Body, Abdomen N/A Computed Radiogr aphy 10/31/2024 3:01 PM CDT Impressions 10/31/2024 3:01 PM CDT Fecal impaction. Electronically signed by: Solis Stahl M.D. Narrative 10/31/2024 3:01 PM CDT EXAMINATION: XR KUB HISTORY: The patient is a 73-year-old male who presents with constipation. TECHNIQUE: Supine view of the abdomen. FINDINGS: Moderate fecal impaction seen in the left colon. No dilated small or large bowel loops. Procedure Note Solis Stahl MD - 10/31/2024 EXAMINATION: XR KUB HISTORY: The patient is a 73-year-old male who presents with constipation. TECHNIQUE: Supine view of the abdomen. FINDINGS: Moderate fecal impaction seen in the left colon. No dilated small or large bowel loops. IMPRESSION: Fecal impaction. Electronically signed by: Solis Stahl M.D. us Riri Fish MD IMG XR PROCEDURES Final Result * eGFR (10/31/2024 5:02 AM CDT) eGFR >90 >=60 mL/min/1. 73 [...] interpretive data was last reviewed 2021. Blood 10/31/2024 5:02 AM CDT 10/31/2024 5:32 AM CDT us Riri Fish MD LAB BLOOD ORDERABL ES Final Result [facility] [address] Department [place] [address] * (ABNORMAL) Differential, auto (10/31/2024 5:02 AM CDT) Neutrophil abs 5.72 1.50 - 6.50 K/cumm Imm gran abs 0.02 0.00 - 0.10 K/cumm [facility] Lymphocyte abs 1.47 0.80 - 3.30 K/cumm [facility] Monocyte abs 1.01(H) 0.20 - 0.80 K/cumm [facility] Eosinophil abs 0.44 0.00 - 0.50 K/cumm [facility] Basophil abs 0.07 0.00 - 0.10 K/cumm [facility] Neutrophil pct 65.6 % [facility] Comment: Interpretive Data Percent cell count reference ranges are not reported, since discordance with absolute values may lead to misinterpretation of CBC data. Current Interpretive Data was last revised on 2017. Imm gran pct 0.2 % [facility] Comment: Interpretive Data Percent cell count reference ranges are not reported, since discordance with absolute values may lead to misinterpretation of CBC data. Current Interpretive Data was last revised on 2017. Lymphocyte pct 16.8 % [facility] Comment: Interpretive Data Percent cell count reference ranges are not reported, since discordance with absolute values may lead to misinterpretation of CBC data. Current Interpretive Data was last revised on 2017. Monocyte pct 11.6 % [facility] Comment: Interpretive Data Percent cell count reference ranges are not reported, since discordance with absolute values may lead to misinterpretation of CBC data. Current Interpretive Data was last revised on 2017. Eosinophil pct 5.0 % [facility] Comment: Interpretive Data Percent cell count reference ranges are not reported, since discordance with absolute values may lead to misinterpretation of CBC data. Current Interpretive Data was last revised on 2017. Basophil pct 0.8 % [facility] Comment: Interpretive Data Percent cell count reference ranges are not reported, since discordance with absolute values may lead to misinterpretation of CBC data. Current Interpretive Data was last revised on 2017. Blood 10/31/2024 5:02 AM CDT 10/31/2024 5:34 AM CDT us Riri Fish MD LAB BLOOD ORDERABL ES Final Result [facility] [address] Department [place] [address] * (ABNORMAL) CBC with auto differential (10/31/2024 5:02 AM CDT) WBC 8.73 3.80 - 9.90 K/cumm Hgb 11.4(L) 13.0 - 17.5 g/dL [facility] Hct 35.4(L) 38.9 - 50.3 % [facility] Plt 280 150 - 400 K/cumm [facility] MPV 10.0 9.1 - 12.3 fL [facility] RBC 3.85(L) 4.30 - 5.80 M/cumm [facility] MCV 91.9 81.3 - 96.4 fL [facility] MCH 29.6 27.1 - 33.3 pg [facility] MCHC 32.2(L) 32.3 - 35.7 g/dL [facility] RDW CV 14.3 11.1 - 14.9 % [facility] RDW SD 48.3(H) 35.7 - 48.1 fL [facility] NRBC abs 0.00 0.00 - 0.01 K/cumm [facility] Blood 10/31/2024 5:02 AM CDT 10/31/2024 5:34 AM CDT us Riri Fish MD LAB BLOOD ORDERABL ES Final Result [facility] [address] Department [place] [address] * (ABNORMAL) Comprehensive metabolic panel (10/31/2024 5:02 AM CDT) Sodium 137 135 - 145 mmol/L Potassium, pl 3.9 3.3 - 4.9 mmol/L [facility] Chloride 102 97 - 110 mmol/L [facility] CO2 23 22 - 32 mmol/L [facility] Anion gap 12 2 - 15 mmol/L [facility] BUN 10 6 - 25 mg/dL [facility] Creatinine 0.78(L) 0.80 - 1.30 mg/dL [facility] Glucose 100 70 - 199 mg/dL [facility] Comment: [...] 2022. Calcium 9.2 8.5 - 10.3 mg/dL [facility] Bilirubin, total 0.6 0.1 - 1.2 mg/dL [facility] Protein, pl 6.5 6.5 - 8.5 g/dL [facility] Albumin 3.6 3.5 - 5.0 g/dL [facility] Alk phos 90 40 - 130 Units/L [facility] ALT 15 7 - 55 Units/L [facility] AST 19 10 - 50 Units/L [facility] Blood 10/31/2024 5:02 AM CDT 10/31/2024 5:32 AM CDT us Riri Fish MD LAB BLOOD ORDERABL ES Final Result Performing Organization Address City/[facility]/ZIP Co de Phone Number [facility] [address] [facility] [place] [address] * POCT glucose (10/30/2024 5:19 PM CDT) Glucose, POC 128 70 - 199 mg/dL POC Performer [phone] [facility] Blood 10/30/2024 5:19 PM CDT 10/30/2024 5:19 PM CDT us Riri Fish MD LAB POCT ORDERABLE S - DEVICE Final Result Performing Organization Address [facility] Co de Phone Number [facility] [address] [place] [address] * eGFR (10/29/2024 5:54 AM CDT) eGFR >90 >=60 mL/min/1. 73 [...] interpretive data was last reviewed 2021. Blood 10/29/2024 5:54 AM CDT 10/29/2024 6:18 AM CDT us Riri Fish MD LAB BLOOD ORDERABL ES Final Result [facility] [address] Department [place] [address] * (ABNORMAL) Differential, auto (10/29/2024 5:54 AM CDT) Neutrophil abs 6.47 1.50 - 6.50 K/cumm Imm gran abs 0.04 0.00 - 0.10 K/cumm [facility] Lymphocyte abs 1.25 0.80 - 3.30 K/cumm [facility] Monocyte abs 0.97(H) 0.20 - 0.80 K/cumm [facility] Eosinophil abs 0.63(H) 0.00 - 0.50 K/cumm [facility] Basophil abs 0.06 0.00 - 0.10 K/cumm [facility] Neutrophil pct 68.7 % [facility] Comment: Interpretive Data Percent cell count reference ranges are not reported, since discordance with absolute values may lead to misinterpretation of CBC data. Current Interpretive Data was last revised on 2017. Imm gran pct 0.4 % [facility] Comment: Interpretive Data Percent cell count reference ranges are not reported, since discordance with absolute values may lead to misinterpretation of CBC data. Current Interpretive Data was last revised on 2017. Lymphocyte pct 13.3 % [facility] Comment: Interpretive Data Percent cell count reference ranges are not reported, since discordance with absolute values may lead to misinterpretation of CBC data. Current Interpretive Data was last revised on 2017. Monocyte pct 10.3 % [facility] Comment: Interpretive Data Percent cell count reference ranges are not reported, since discordance with absolute values may lead to misinterpretation of CBC data. Current Interpretive Data was last revised on 2017. Eosinophil pct 6.7 % [facility] Comment: Interpretive Data Percent cell count reference ranges are not reported, since discordance with absolute values may lead to misinterpretation of CBC data. Current Interpretive Data was last revised on 2017. Basophil pct 0.6 % [facility] Comment: Interpretive Data Percent cell count reference ranges are not reported, since discordance with absolute values may lead to misinterpretation of CBC data. Current Interpretive Data was last revised on 2017. Blood 10/29/2024 5:54 AM CDT 10/29/2024 6:18 AM CDT Riri Fish MD LAB BLOOD ORDERABL ES Final Result Performing Organization Address City/[facility]/ZIP Co de Phone Number [facility] [address] [place] [address] * (ABNORMAL) CBC with auto differential (10/29/2024 5:54 AM CDT) WBC 9.42 3.80 - 9.90 K/cumm Hgb 11.6(L) 13.0 - 17.5 g/dL [facility] Hct 36.0(L) 38.9 - 50.3 % [facility] Plt 244 150 - 400 K/cumm [facility] MPV 10.1 9.1 - 12.3 fL [facility] RBC 3.91(L) 4.30 - 5.80 M/cumm [facility] MCV 92.1 81.3 - 96.4 fL [facility] MCH 29.7 27.1 - 33.3 pg [facility] MCHC 32.2(L) 32.3 - 35.7 g/dL [facility] RDW CV 14.1 11.1 - 14.9 % [facility] RDW SD 47.7 35.7 - 48.1 fL [facility] NRBC abs 0.00 0.00 - 0.01 K/cumm [facility] Blood 10/29/2024 5:54 AM CDT 10/29/2024 6:18 AM CDT us Riri Fish MD LAB BLOOD ORDERABL ES Final Result Performing Organization Address City/[facility]/ZIP Co de Phone Number [facility] [address] [place] [address] * (ABNORMAL) Comprehensive metabolic panel (10/29/2024 5:54 AM CDT) Sodium 136 135 - 145 mmol/L Potassium, pl 3.8 3.3 - 4.9 mmol/L [facility] Chloride 104 97 - 110 mmol/L [facility] CO2 22 22 - 32 mmol/L [facility] Anion gap 10 2 - 15 mmol/L [facility] BUN 8 6 - 25 mg/dL [facility] Creatinine 0.77(L) 0.80 - 1.30 mg/dL [facility] Glucose 116 70 - 199 mg/dL [facility] Comment: [...] 9.0 8.5 - 10.3 mg/dL [facility] Bilirubin, total 0.6 0.1 - 1.2 mg/dL [facility] Protein, pl 6.3(L) 6.5 - 8.5 g/dL [facility] Albumin 3.6 3.5 - 5.0 g/dL [facility] Alk phos 88 40 - 130 Units/L [facility] ALT 16 7 - 55 Units/L [facility] AST 24 10 - 50 Units/L [facility] Blood 10/29/2024 5:54 AM CDT 10/29/2024 6:18 AM CDT us Riri Fish MD LAB BLOOD ORDERABL ES Final Result [facility] [address] Department [place] [address] * (ABNORMAL) CBC without differential (10/28/2024 11:22 AM CDT) WBC 9.49 3.80 - 9.90 K/cumm Hgb 11.3(L) 13.0 - 17.5 g/dL [facility] Hct 36.0(L) 38.9 - 50.3 % [facility] Plt 223 150 - 400 K/cumm [facility] MPV 9.9 9.1 - 12.3 fL [facility] RBC 3.83(L) 4.30 - 5.80 M/cumm [facility] MCV 94.0 81.3 - 96.4 fL [facility] MCH 29.5 27.1 - 33.3 pg [facility] MCHC 31.4(L) 32.3 - 35.7 g/dL [facility] RDW CV 14.0 11.1 - 14.9 % [facility] RDW SD 48.2(H) 35.7 - 48.1 fL [facility] NRBC abs 0.00 0.00 - 0.01 K/cumm [facility] Blood 10/28/2024 11:2 2 AM CDT 10/28/2024 11:33 AM CDT us Cruz Chew MD LAB BLOOD ORDERABLES Final Resu lt [facility] [address] Department [place] [address] * XR Knee Right 1 or 2 Views (10/28/2024 7:33 AM CDT) Anatomical Region Laterality Modality Lower Extremities, Knee Right Computed Radiography 10/28/2024 9:37 AM CDT Impressions 10/28/2024 9:37 AM CDT Moderate degenerative changes. Electronically signed by: Solis Stahl M.D. Narrative 10/28/2024 9:37 AM CDT EXAMINATION: XR KNEE RIGHT 1 OR 2 VIEWS HISTORY: The patient is a 73-year-old male who presents with right knee pain. TECHNIQUE: AP and lateral view. FINDINGS: No fracture or dislocation is seen. There is mild narrowing of the medial compartment of the tibiofemoral joint space with early meniscal calcification. Patellofemoral joint is normal. Marked arterial calcification. Procedure Note Solis Stahl MD - 10/28/2024 EXAMINATION: XR KNEE RIGHT 1 OR 2 VIEWS HISTORY: The patient is a 73-year-old male who presents with right knee pain. TECHNIQUE: AP and lateral view. FINDINGS: No fracture or dislocation is seen. There is mild narrowing of the medial compartment of the tibiofemoral joint space with early meniscal calcification. Patellofemoral joint is normal. Marked arterial calcification. IMPRESSION: Moderate degenerative changes. Electronically signed by: Solis Stahl M.D. Gris Cooper NP IMG XR PROCEDURES Final Resu lt * D-dimer, quantitative (10/28/2024 3:35 AM CDT) D-Dimer 313 <=499 ng/mL FEU Comment: Interpretive data FDA approved the D-dimer, in conjunction with a low or moderate pretest probability score, to exclude venous thromboembolic events (VTE) (PE and DVT) in outpatients when the D-dimer result is < 500 ng/ml FEU. Evidence supports using an age-adjusted D-dimer cut-off for outpatients older than 50 (age x 10) to improve specificity without sacrificing sensitivity. Example: age 68, VTE cut-off 680 ng/ml FEU. References; Schouten HT et al. Brit Med J. 2013;346:f2492. Behzad et al. Annals Int Med. 2015;163:701-11. Current interpretive data was last revised on 2019. Blood 10/28/2024 3:35 AM CDT 10/28/2024 5:20 AM CDT Gris Cooper NP LAB BLOOD ORDERABLES Final R esult [facility] [address] [place] [address] * (ABNORMAL) Uric acid (10/28/2024 3:35 AM CDT) Uric acid 2.9(L) 3.0 - 8.0 mg/dL Blood 10/28/2024 3:35 AM CDT 10/28/2024 5:19 AM CDT Girs Cooper NP LAB BLOOD ORDERABLES Final R esult Performing Organization Address [facility] Co de Phone Number CERNER [id number] [place] [address] * (ABNORMAL) Urinalysis reflex to microscopic and culture Urine (10/27/2024 10:42 AM CDT) Color, ur Yellow Yellow Clarity, ur Clear Clear CERNER CH Specific gravity, ur 1.015 1.003 - 1.030 CERNER CH pH, urine 6.5 CERNER CH Comment: Interpretive Data U rine pH is affected by diet, medications, systemic acid-base disturbances, and renal tubular function. pH may affect urinary stone formation. For example, urine pH below 6.0 may help reduce the tendency for calcium phosphate stones and pH greater than 6.0 may reduce the tendency for uric acid stone formation. Source: [facility] Blucarat Current Interpretive Data was last revised on 2017 Protein, ur ql Negative Negative CERNER CH Glucose, ur ql Negative Negative CERNER CH Ketones, ur Negative Negative CERNER CH Bilirubin, ur Negative Negative CERNER CH Blood, ur 2+(A) Negative CERNER CH Urobilinogen, ur <2.0 <2.0 mg/dL CERNER CH Nitrite, ur Negative Negative CERNER CH Leukocyte esterase, ur 2+(A) Negative CERNER CH UA reflex comment Reflex to microscopic UA will be performed. CERNER CH Urine 10/27/2024 10:4 2 AM CDT 10/27/2024 10:42 AM CDT us Cruz Chew MD LAB MICROBIOLOGY - GENERAL MAR GAY Final Result Performing Organization Address City/[facility]/ZIP Co de Phone Number ANUSHA [id number] [place] [address] * (ABNORMAL) Urinalysis, microscopic only (10/27/2024 10:42 AM CDT) WBC, ur 0-5 0 - 5 /HPF RBC, ur 21-50(A) 0 - 2 /HPF [facility] Bacteria, ur Trace(A) [facility] Hyaline casts, ur 1-5 0 - 10 /LPF [facility] Culture Reflex Comment Reflex conditions for urine culture (WBC >10) not met. [facility] Urine 10/27/2024 10:4 2 AM CDT 10/27/2024 10:42 AM CDT Cruz Chew MD LAB URINE ORDERABLES Final Resu lt ANUSHA [address] Department [place] [address] * eGFR (10/26/2024 4:44 AM CDT) eGFR 84 >=60 mL/min/1. 73 m2 Comment: Interpretive Data [...] interpretive data was last reviewed 2021. Blood 10/26/2024 4:44 AM CDT 10/26/2024 5:46 AM CDT us Marianna Robin NP LAB BLOOD ORDERABLES Final R esult [facility] [id number] Department [place] [address] * (ABNORMAL) Differential, auto (10/26/2024 4:44 AM CDT) Neutrophil abs 10.53(H) 1.50 - 6.50 K/cumm Imm gran abs 0.06 0.00 - 0.10 K/cumm [facility] Lymphocyte abs 1.42 0.80 - 3.30 K/cumm [facility] Monocyte abs 1.14(H) 0.20 - 0.80 K/cumm [facility] Eosinophil abs 0.10 0.00 - 0.50 K/cumm [facility] Basophil abs 0.06 0.00 - 0.10 K/cumm [facility] Neutrophil pct 78.9 % [facility] Comment: Interpretive Data Percent cell count reference ranges are not reported, since discordance with absolute values may lead to misinterpretation of CBC data. Current Interpretive Data was last revised on 2017. Imm gran pct 0.5 % [facility] Comment: Interpretive Data Percent cell count reference ranges are not reported, since discordance with absolute values may lead to misinterpretation of CBC data. Current Interpretive Data was last revised on 2017. Lymphocyte pct 10.7 % [facility] Comment: Interpretive Data Percent cell count reference ranges are not reported, since discordance with absolute values may lead to misinterpretation of CBC data. Current Interpretive Data was last revised on 2017. Monocyte pct 8.6 % [facility] Comment: Interpretive Data Percent cell count reference ranges are not reported, since discordance with absolute values may lead to misinterpretation of CBC data. Current Interpretive Data was last revised on 2017. Eosinophil pct 0.8 % [facility] Comment: Interpretive Data Percent cell count reference ranges are not reported, since discordance with absolute values may lead to misinterpretation of CBC data. Current Interpretive Data was last revised on 2017. Basophil pct 0.5 % CERNER Comment: Interpretive Data Percent cell count reference ranges are not reported, since discordance with absolute values may lead to misinterpretation of CBC data. Current Interpretive Data was last revised on 2017. Blood 10/26/2024 4:44 AM CDT 10/26/2024 5:46 AM CDT Marianna Robin NP LAB BLOOD ORDERABLES Final R esult Performing Organization Address City/[facility]/ZIP Co de Phone Number ANUSHA [address] [place] [address] * (ABNORMAL) CBC with auto differential (10/26/2024 4:44 AM CDT) WBC 13.31(H) 3.80 - 9.90 K/cumm Hgb 12.2(L) 13.0 - 17.5 g/dL CERNER CH Hct 37.4(L) 38.9 - 50.3 % [facility] Plt 263 150 - 400 K/cumm [facility] MPV 10.3 9.1 - 12.3 fL [facility] RBC 4.07(L) 4.30 - 5.80 M/cumm [facility] MCV 91.9 81.3 - 96.4 fL [facility] MCH 30.0 27.1 - 33.3 pg [facility] MCHC 32.6 32.3 - 35.7 g/dL [facility] RDW CV 14.3 11.1 - 14.9 % [facility] RDW SD 48.5(H) 35.7 - 48.1 fL [facility] NRBC abs 0.00 0.00 - 0.01 K/cumm [facility] Blood 10/26/2024 4:44 AM CDT 10/26/2024 5:46 AM CDT Marianna Robin NP LAB BLOOD ORDERABLES Final R esult ANUSHA [address] [place] [address] * (ABNORMAL) Hemoglobin A1c (10/26/2024 4:44 AM CDT) Hgb A1C 6.1(H) 4.0 - 5.6 % Estimated Average Glucose 128 mg/dL ANUSHA DIXON Comment: The ADA recommends reporting an estimated Average Glucose (eAG) with all Hemoglobin A1c results using the equation derived from a study of 507 normal and diabetic adults. Minority populations were underrepresented and children were not included. (Diabetes Care 31:1656-9789, 2008). The eAG is not equivalent to a fasting glucose. Blood 10/26/2024 4:44 AM CDT 10/26/2024 5:46 AM CDT us Marianna Robin NP LAB BLOOD ORDERABLES Final R esult ANUSHA DIXON [address] Department [place] [address] * Lipid panel (10/26/2024 4:44 AM CDT) Cholesterol 135 30 - 199 mg/dL Comment: Interpretive Data Ages < or = 19 years Acceptable: <170 mg/dL Borderline high: 170-199 mg/dL High: >or= 200 mg/dL Ages > or = 20 years Desirable: <200 mg/dL Borderline high: 200-239 mg/dL High: >or= 240 mg/dL Literature References: 1. Expert Panel on Integrated Guidelines for Cardiovascular Health and Risk Reduction in Children and Adolescents. Pediatrics 2011;128:S213 2. NCEP Expert Panel. Circulation 2004;110:227 Current Interpretive Data was last revised on 2018. Triglycerides 77 <=149 mg/dL ANUSHA DIXON Comment: Interpretive Data Ages < or = 9 years Acceptable: <75 mg/dL Borderline high: 75-99 mg/dL High: >or= 100 mg/dL Ages 10 to 20 years Acceptable: <90 mg/dL Borderline high: 90-129 mg/dL High: >or= 130 mg/dL Ages > or = 20 years Desirable: <150 mg/dL Borderline high: 150-199 mg/dL High: 200-499 mg/dL Very high: >or= 499 mg/dL Literature References: 1. Expert Panel on Integrated Guidelines for Cardiovascular Health and Risk Reduction in Children and Adolescents. Pediatrics 2011;128:S213 2. NCEP Expert Panel. Circulation 2004;110:227 Current Interpretive Data was last revised on 2018. HDL 62 >=40 mg/dL ANUSHA DIXON Comment: Interpretive Data Ages < or = 19 years Acceptable: >45 mg/dL Borderline low: 40-45 mg/dL Low: <40 mg/dL Ages > or = 20 years Desirable: >or= 60 mg/dL Low: <40 mg/dL Literature References: 1. Expert Panel on Integrated Guidelines for Cardiovascular Health and Risk Reduction in Children and Adolescents. Pediatrics 2011;128:S213 2. NCEP Expert Panel. Circulation 2004;110:227 Current Interpretive Data was last revised on 2018. LDL, calculated 58 <=129 mg/dL ANUSHA DIXON Comment: Interpretive Data Ages < or = 19 years Acceptable: <110 mg/dL Borderline high: 110-129 mg/dL High: >or= 130 mg/dL Ages > or = 20 years Optimal: <100 mg/dL Near optimal: 100-129 mg/dL Borderline high: 130-159 mg/dL High: >160 mg/dL Calculated using the Weston LDL-C estimating equation. This equation was implemented on 2024. Prior to this date LDL-C was estimated using the Friedewald equation. Literature References: 1. Expert Panel on Integrated Guidelines for Cardiovascular Health and Risk Reduction in Children and Adolescents. Pediatrics 2011;128:S213 2. NCEP Expert Panel. Circulation 2004;110:227 3. Weston Zavala et al. OBDULIA Cardiol. 2019September 29;5(5):540-548. doi: 10.1001/[email or web address] Current Interpretive Data was last revised on 2024. Non-HDL Cholesterol 73 mg/dL ANUSHA DIXON Comment: Interpretive Data Ages < or = 19 years Acceptable: <120 mg/dL Borderline high: 120-144 mg/dL High: >145 mg/dL Ages > or = 20 years When triglycerides are >200 mg/dL, Non-HDL cholesterol is a secondary target of therapy with treatment goals that are 30 mg/dL greater than the LDL cholesterol target. Literature References: 1. Expert Panel on Integrated Guidelines for Cardiovascular Health and Risk Reduction in Children and Adolescents. Pediatrics 2011;128:S213 2. NCEP Expert Panel. Circulation 2004;110:227 Current Interpretive Data was last revised on 2018. Chol/HDL ratio 2 CERNER CH Blood 10/26/2024 4:44 AM CDT 10/26/2024 5:46 AM CDT Marianna Kellerdheeraj FIELD RECRUITER LAB BLOOD ORDERABLES Final R esult CERNER [address] Department [place] [address] * Comprehensive metabolic panel (10/26/2024 4:44 AM CDT) Pathologist [facility] Sodium 135 135 - 145 mmol/L Potassium, pl 4.3 3.3 - 4.9 mmol/L CERNER CH Chloride 101 97 - 110 mmol/L CERNER CH CO2 22 22 - 32 mmol/L CERNER CH Anion gap 12 2 - 15 mmol/L CERNER CH BUN 15 6 - 25 mg/dL CERNER CH Creatinine 0.95 0.80 - 1.30 mg/dL CERNER CH Glucose 109 70 - 199 mg/dL CERNER CH Comment: [...] 9.4 8.5 - 10.3 mg/dL CERNER CH Bilirubin, total 0.5 0.1 - 1.2 mg/dL CERNER CH Protein, pl 7.1 6.5 - 8.5 g/dL CERNER CH Albumin 4.2 3.5 - 5.0 g/dL CERNER CH Alk phos 78 40 - 130 Units/L CERNER CH ALT 20 7 - 55 Units/L CERNER CH AST 38 10 - 50 Units/L CERNER CH Blood 10/26/2024 4:44 AM CDT 10/26/2024 5:46 AM CDT Rianablayne Lobito MAURICE LAB BLOOD ORDERABLES Final R esult ANUSHA DIXON [address] Department [place] [address] * XR Chest 1 View (10/25/2024 10:05 PM CDT) Anatomical Region Laterality Modality Body, Chest N/A Computed Radiogr aphy 10/26/2024 7:58 AM CDT Impressions 10/26/2024 7:58 AM CDT No pneumothorax or pleural effusion. Poststernotomy changes redemonstrated. Cardiac mediastinal silhouette within normal limits. No acute osseous abnormality. Electronically signed by: Marques Tian II, D.O. Narrative 10/26/2024 7:58 AM CDT EXAMINATION: XR CHEST 1 VIEW DATE: 10/25/2024 10:00 PM INDICATION: Weakness. COMPARISON: 07/29/2005. Procedure Note Marques Tian II, DO - 10/26/2024 EXAMINATION: XR CHEST 1 VIEW DATE: 10/25/2024 10:00 PM INDICATION: Weakness. COMPARISON: 07/29/2005. IMPRESSION: No pneumothorax or pleural effusion. Poststernotomy changes redemonstrated. Cardiac mediastinal silhouette within normal limits. No acute osseous abnormality. Electronically signed by: Marques Tian II, D.O. Caroline Cobos MD IMG XR PROCEDURES Julee l Result * (ABNORMAL) Troponin T high-sensitivity 4-hour (10/25/2024 7:43 PM CDT) Trop T hs 28(H) <=22 ng/L Comment: Interpretive Data For further hscTnT resources including the diagnostic algorithm and an aid in interpretation, copy and paste this link: https://nrl.testcatalog.org/show/hsTrop Current Interpretive Data last revised 2020. Trop T hs delta 9 ng/L CERNER CH Trop T hs interp Equivocal ANUSHA DIXON Blood 10/25/2024 7:43 PM CDT 10/25/2024 7:47 PM CDT us Caroline Cobos MD LAB BLOOD ORDERABLES F inal Result ANUSHA DIXON [address] Department [place] [address] * MRI Brain W WO Contrast (10/25/2024 7:20 PM CDT) Anatomical Region Laterality Modality Head and Neck N/A Magnetic Resonan ce 10/25/2024 6:40 PM CDT Impressions 10/26/2024 10:44 AM CDT 1. Multifocal areas of serpiginous cortical hyperintensity on the diffusion-weighted images with associated FLAIR signal abnormality, most compatible with acute/subacute developing infarcts. The distribution and clinical scenario of severe hypertension raises suspicion for posterior reversible encephalopathy syndrome as the most likely etiologic consideration, although a watershed distribution of infarcts due to hypoperfusion/hypotension or even thromboembolic phenomenon is also possible. Neurology consultation and follow-up recommended. Consider repeat imaging after blood pressure control. 2. Numerous scattered old chronic lacunar infarcts in the brain/brainstem, as detailed above. 3. A preliminary report was provided by the teleradiologist [employer]. Electronically signed by: Jarrett Ann M.D. Narrative 10/26/2024 10:44 AM CDT EXAMINATION: Magnetic resonance imaging (MRI) of the brain without and with contrast DATE: 10/25/2024 6:25 PM HISTORY: Weakness. TECHNIQUE: MRI of the brain was performed prior to and following the uneventful administration of Dotarem 15 mL intravenous gadolinium contrast according to standard protocol. FINDINGS: A previous outside brain MRI dated 12/17/2023 is available for comparison. A CT angiogram of the head and neck from earlier same date is also available. There are multifocal areas of serpiginous cortical hyperintensity on the diffusion-weighted images scattered throughout both frontal, parietal, and occipital lobes, the appearance of which is highly suspicious for acute/subacute developing infarcts, with associated cytotoxic edema on the FLAIR sequence. This could be due to a watershed distribution pattern of widespread/global hypoperfusion or hypotension, although thromboembolic phenomenon could also be considered. Furthermore, the distribution in the context of severe hypertension also raises the possibility of posterior reversible encephalopathy syndrome (i.e. PRES or acute hypertensive encephalopathy) as an underlying etiologic cause. There is some associated patchy serpiginous enhancement associated with the FLAIR signal hyperintensity in the bioccipital regions. No evidence of acute or chronic hemorrhage. Several tiny scattered chronic lacunar infarcts are noted within the bilateral thalami, the left basal ganglia, left araceli-larissa, and bilateral centrum semiovale above the lateral ventricles. There is generalized, global cerebral atrophy with symmetric ex vacuo dilatation of the ventricles and widening of the sulci. The corpus callosum, sella, posterior fossa, and craniocervical junction appear normal. Lenses are absent bilaterally. Mild mucoperiosteal thickening noted within the paranasal sinuses. The mastoids are clear. Normal flow voids are demonstrated in the carotid arteries and basilar artery. The calvarium and visualized cervical spine appear normal. Procedure Note Jarrett Ann MD - 10/26/2024 EXAMINATION: Magnetic resonance imaging (MRI) of the brain without and with contrast DATE: 10/25/2024 6:25 PM HISTORY: Weakness. TECHNIQUE: MRI of the brain was performed prior to and following the uneventful administration of Dotarem 15 mL intravenous gadolinium contrast according to standard protocol. FINDINGS: A previous outside brain MRI dated 12/17/2023 is available for comparison. A CT angiogram of the head and neck from earlier same date is also available. There are multifocal areas of serpiginous cortical hyperintensity on the diffusion-weighted images scattered throughout both frontal, parietal, and occipital lobes, the appearance of which is highly suspicious for acute/subacute developing infarcts, with associated cytotoxic edema on the FLAIR sequence. This could be due to a watershed distribution pattern of widespread/global hypoperfusion or hypotension, although thromboembolic phenomenon could also be considered. Furthermore, the distribution in the context of severe hypertension also raises the possibility of posterior reversible encephalopathy syndrome (i.e. PRES or acute hypertensive encephalopathy) as an underlying etiologic cause. There is some associated patchy serpiginous enhancement associated with the FLAIR signal hyperintensity in the bioccipital regions. No evidence of acute or chronic hemorrhage. Several tiny scattered chronic lacunar infarcts are noted within the bilateral thalami, the left basal ganglia, left araceli-larissa, and bilateral centrum semiovale above the lateral ventricles. There is generalized, global cerebral atrophy with symmetric ex vacuo dilatation of the ventricles and widening of the sulci. The corpus callosum, sella, posterior fossa, and craniocervical junction appear normal. Lenses are absent bilaterally. Mild mucoperiosteal thickening noted within the paranasal sinuses. The mastoids are clear. Normal flow voids are demonstrated in the carotid arteries and basilar artery. The calvarium and visualized cervical spine appear normal. IMPRESSION: 1. Multifocal areas of serpiginous cortical hyperintensity on the diffusion-weighted images with associated FLAIR signal abnormality, most compatible with acute/subacute developing infarcts. The distribution and clinical scenario of severe hypertension raises suspicion for posterior reversible encephalopathy syndrome as the most likely etiologic consideration, although a watershed distribution of infarcts due to hypoperfusion/hypotension or even thromboembolic phenomenon is also possible. Neurology consultation and follow-up recommended. Consider repeat imaging after blood pressure control. 2. Numerous scattered old chronic lacunar infarcts in the brain/brainstem, as detailed above. 3. A preliminary report was provided by the teleradiologist [employer]. Electronically signed by: Jarrett Ann M.D. Caroline Cobos MD IMG MRI PROCEDURES Fin al Result * (ABNORMAL) Troponin T high-sensitivity 2-hour (10/25/2024 6:12 PM CDT) Trop T hs 26(H) <=22 ng/L Comment: Interpretive Data For further hscTnT resources including the diagnostic algorithm and an aid in interpretation, copy and paste this link: https://nrl.testcatalog.org/show/hsTrop Current Interpretive Data last revised 2020. Trop T hs delta 7 ng/L CERNER CH Trop T hs interp Equivocal CERNER CH Blood 10/25/2024 6:12 PM CDT 10/25/2024 6:12 PM CDT Caroline Cobos MD LAB BLOOD [place] [address] [address] Department [place] [address] * CTA Stroke Head Neck W WO Contrast (10/25/2024 5:01 PM CDT) Anatomical Region Laterality Modality Head and Neck N/A Computed Tomogra phy 10/25/2024 5:40 PM CDT Impressions 10/26/2024 11:[address] evidence of acute stroke. No significant cervical internal carotid artery stenosis. Calcified plaque with severe stenosis precavernous right internal carotid , moderate at left carotid terminus and [id number] in the cavernous segment. Calcified plaque with moderate stenosis distal M1 segment left MCA, and mild on the right. Severe stenosis V4 segment left vertebral and moderate at the origin. 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 Chronic lacunar infarcts in the bilateral thalami, deep white matter and left caudate. CT angiogram report called to Dr. Cobos by Dr. Handley on 10/25/2024 at 5:40 pm. Electronically signed by: Deanna Handley M.D. Narrative 10/26/2024 11:27 AM CDT EXAMINATION: CTA STROKE HEAD NECK W WO CONTRAST HISTORY: Neuro deficit, acute, stroke suspected ams TECHNIQUE: Noncontrast CT of the head was obtained from skull base to vertex, according to standard protocol. Subsequently, CT angiogram of the neck and skull valley of [place] was performed after the uneventful intravenous administration of 92 mL Optiray 350 according to the head and neck angiography protocol with multiplanar reconstructions including thin MIPS obtained. 3-D postprocessing was performed by the technologist on a separate workstation, and submitted for review. Separate data acquisition was obtained. COMPARISON: CT head 10/31/2023 FINDINGS: HEAD CT FINDINGS: There is no acute intracranial hemorrhage. There is no noncontrast evidence of acute stroke. There is no vascular hyperdensity of the M1 segments or basilar artery. Confluent decreased attenuation the periventricular and deep white matter is seen.. Chronic lacunar infarcts noted in the thalami, left caudate, and bilateral deep white matter. The ventricles sulci and cisterns and mild to moderate enlarged.. There is no mass effect or midline shift. ANGIOGRAPHIC FINDINGS: Atherosclerotic aorta with three-vessel branching is seen.. There is no significant stenosis of the origins of the great vessels. There is no geographic area of vascular paucity in the brain. Left anterior circulation: L CCA: no occlusion or significant stenosis L carotid bifurcation: Mild calcified plaque, no occlusion or significant stenosis L ICA proximal: Calcified and soft plaque but no occlusion or significant stenosis L ICA distal: Calcified plaque with mild stenosis of the precavernous and [id number] cavernous with mild supraclinoid stenosis L ICA terminus: Calcified plaque with moderate stenosis L M1: Calcified plaque with mild proximal moderate distal M1 segment stenosis L M2 branches: no occlusion or significant stenosis L A2: no occlusion or significant stenosis Right anterior circulation: R CCA: Calcified plaque with mild distal stenosis R carotid bifurcation: Calcified plaque, no occlusion or significant stenosis R ICA proximal: no occlusion or significant stenosis R ICA distal: Calcified plaque with severe precavernous and mild to moderate cavernous segment stenosis R ICA terminus: no occlusion or significant stenosis R M1: Mild distal stenosis no occlusion or significant stenosis R M2 branches: no occlusion or significant stenosis R A2: no occlusion or significant stenosis Posterior circulation: L Vertebral Artery: Dominant. Calcified plaque with moderate origin stenosis and severe stenosis with near occlusion at the mid V4 segment. R Vertebral Artery: Markedly hypoplastic with calcified plaque and probable moderate origin stenosis . Focal severe stenosis distal V2 and near occlusion/occlusion at the V3/V4 junction. Basilar Artery: Soft plaque with moderate to severe middle third basilar stenosis. L HUMAN SERVICE SPECIALIST: no occlusion or significant stenosis origin noted R HUMAN SERVICE SPECIALIST: no occlusion or significant stenosis, a large right posterior communicating artery is seen. The dural venous sinuses are not possible due to scan timing but flow is present in the superior sagittal sinus No cerebral aneurysm is seen. There is no evidence for an arteriovenous malformation. Intraocular lens replacement is seen There is no suspicious cervical lymphadenopathy. Marked disc narrowing and spondylosis noted at C5-6.. Limited views of the lung apices are normal. Procedure Note Deanna Handley MD - 10/26/2024 EXAMINATION: CTA STROKE HEAD NECK W WO CONTRAST HISTORY: Neuro deficit, acute, stroke suspected ams TECHNIQUE: Noncontrast CT of the head was obtained from skull base to vertex, according to standard protocol. Subsequently, CT angiogram of the neck and skull valley of [place] was performed after the uneventful intravenous administration of 92 mL Optiray 350 according to the head and neck angiography protocol with multiplanar reconstructions including thin MIPS obtained. 3-D postprocessing was performed by the technologist on a separate workstation, and submitted for review. Separate data acquisition was obtained. COMPARISON: CT head 10/31/2023 FINDINGS: HEAD CT FINDINGS: There is no acute intracranial hemorrhage. There is no noncontrast evidence of acute stroke. There is no vascular hyperdensity of the M1 segments or basilar artery. Confluent decreased attenuation the periventricular and deep white matter is seen.. Chronic lacunar infarcts noted in the thalami, left caudate, and bilateral deep white matter. The ventricles sulci and cisterns and mild to moderate enlarged.. There is no mass effect or midline shift. ANGIOGRAPHIC FINDINGS: Atherosclerotic aorta with three-vessel branching is seen.. There is no significant stenosis of the origins of the great vessels. There is no geographic area of vascular paucity in the brain. Left anterior circulation: L CCA: no occlusion or significant stenosis L carotid bifurcation: Mild calcified plaque, no occlusion or significant stenosis L ICA proximal: Calcified and soft plaque but no occlusion or significant stenosis L ICA distal: Calcified plaque with mild stenosis of the precavernous and nypt-so-gzyzbzuz cavernous with mild supraclinoid stenosis L ICA terminus: Calcified plaque with moderate stenosis L M1: Calcified plaque with mild proximal moderate distal M1 segment stenosis L M2 branches: no occlusion or significant stenosis L A2: no occlusion or significant stenosis Right anterior circulation: R CCA: Calcified plaque with mild distal stenosis R carotid bifurcation: Calcified plaque, no occlusion or significant stenosis R ICA proximal: no occlusion or significant stenosis R ICA distal: Calcified plaque with severe precavernous and mild to moderate cavernous segment stenosis R ICA terminus: no occlusion or significant stenosis R M1: Mild distal stenosis no occlusion or significant stenosis R M2 branches: no occlusion or significant stenosis R A2: no occlusion or significant stenosis Posterior circulation: L Vertebral Artery: Dominant. Calcified plaque with moderate origin stenosis and severe stenosis with near occlusion at the mid V4 segment. R Vertebral Artery: Markedly hypoplastic with calcified plaque and probable moderate origin stenosis . Focal severe stenosis distal V2 and near occlusion/occlusion at the V3/V4 junction. Basilar Artery: Soft plaque with moderate to severe middle third basilar stenosis. L HUMAN SERVICE SPECIALIST: no occlusion or significant stenosis origin noted R HUMAN SERVICE SPECIALIST: no occlusion or significant stenosis, a large right posterior communicating artery is seen. The dural venous sinuses are not possible due to scan timing but flow is present in the superior sagittal sinus No cerebral aneurysm is seen. There is no evidence for an arteriovenous malformation. Intraocular lens replacement is seen There is no suspicious cervical lymphadenopathy. Marked disc narrowing and spondylosis noted at C5-6.. Limited views of the lung apices are normal. IMPRESSION: No CT evidence of acute stroke. No significant cervical internal carotid artery stenosis. Calcified plaque with severe stenosis precavernous right internal carotid , moderate at left carotid terminus and [id number] in the cavernous segment. Calcified plaque with moderate stenosis distal M1 segment left MCA, and mild on the right. Severe stenosis V4 segment left vertebral and moderate at the origin. 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 Chronic lacunar infarcts in the bilateral thalami, deep white matter and left caudate. CT angiogram report called to Dr. Cobos by Dr. Handley on 10/25/2024 at 5:40 pm. Electronically signed by: Deanna Handley M.D. Caroline Cobos MD IMG CT PROCEDURES Julee l Result * CT Stroke Head WO Contrast (10/25/2024 4:55 PM CDT) Anatomical Region Laterality Modality Head N/A Computed Tomogra phy 10/25/2024 5:14 PM CDT Impressions 10/25/2024 5:14 PM CDT No acute intracranial pathology. Involutional change, microvascular disease and chronic lacunar infarcts in the thalami, left caudate and deep white matter. Extensive vascular calcification. Sinusitis as above. Report called to Dr. Cobos by Dr. Handley on 10/25/2024 at 5:11 PM. Report called to Electronically signed by: Deanna Handley M.D. Narrative 10/25/2024 5:14 PM CDT Examination: CT STROKE HEAD WO CONTRAST Date: 10/25/2024 4:20 PM Clinical History: Neuro deficit acute stroke suspected. Technique: Noncontrast CT head obtained. Comparison:CT head 11/20/2023. Findings: Qijj-jr-pnfzzqkr nonspecific ventricles, sulci and cisterns is seen with confluent decreased attenuation of the periventricular deep white matter. Bilateral chronic thalamic lacunar infarcts are seen with 1 in the left caudate, oconnor radiata and right centrum semiovale.. The casarez-white matter differentiation is preserved. No acute intracranial hemorrhage midline shift or mass effect is seen. Extensive calcified plaque is seen in bilateral internal carotid/cavernous segment and M1 segment left MCA with basal involvement but there is no hyperdense MCA or basilar sign otherwise seen. No acute hemorrhage midline shift or mass effect noted. Moderate ethmoid, mild maxillary frontal and sphenoid sinusitis is seen. The mastoids are clear. The calvarium is intact. Procedure Note Deanna Handley MD - 10/25/2024 Examination: CT STROKE HEAD WO CONTRAST Date: 10/25/2024 4:20 PM Clinical History: Neuro deficit acute stroke suspected. Technique: Noncontrast CT head obtained. Comparison:CT head 11/20/2023. Findings: Qkac-hu-wkaobdrf nonspecific ventricles, sulci and cisterns is seen with confluent decreased attenuation of the periventricular deep white matter. Bilateral chronic thalamic lacunar infarcts are seen with 1 in the left caudate, oconnor radiata and right centrum semiovale.. The casarez-white matter differentiation is preserved. No acute intracranial hemorrhage midline shift or mass effect is seen. Extensive calcified plaque is seen in bilateral internal carotid/cavernous segment and M1 segment left MCA with basal involvement but there is no hyperdense MCA or basilar sign otherwise seen. No acute hemorrhage midline shift or mass effect noted. Moderate ethmoid, mild maxillary frontal and sphenoid sinusitis is seen. The mastoids are clear. The calvarium is intact. IMPRESSION: No acute intracranial pathology. Involutional change, microvascular disease and chronic lacunar infarcts in the thalami, left caudate and deep white matter. Extensive vascular calcification. Sinusitis as above. Report called to Dr. Cobos by Dr. Handley on 10/25/2024 at 5:11 PM. Report called to Electronically signed by: Deanna Handley M.D. Caroline Cobos MD IMG CT PROCEDURES Julee l Result * OK CRITICAL CARE ILL/INJURED PATIENT INIT 30-74 MIN (10/25/2024 4:23 PM CDT) Narrative Caroline Cobos MD - 10/25/2024 4:23 PM CDT Caroline Cobos MD 10/25/2024 10:59 PM Critical Care Performed by: Caroline Cobos MD Authorized by: Caroline Cobos MD Critical care provider statement: As reflected in the history, physical exam, orders, notes, and/or MDM, I was personally present while the patient was critically ill and provided critical care services for 55 minutes, excluding time involved in separately billable procedures. Critical care was necessary to treat or prevent imminent or life-threatening deterioration of the following condition(s): acute cerebrovascular accident (CVA) Critical care was time spent by me providing the following: continuous telemetry, continuous pulse oximetry, interpretation of bedside monitors, imaging, and arterial/venous lab draws, serial bedside patient exams, serial laboratory checks and resuscitation with fluids initiation of stroke management and decision regarding acute lytic therapy I provided emergent necessary critical care medicine services to this patient. I ordered and reviewed test results and/or imaging studies. I spent time discussing the management of this critically ill patient with consultants and the medical staff. I spent time discussing the management and therapeutic options for this critically ill patient with the patient themselves or with the appropriate designated surrogate decision-maker. I spent time documenting in the medical record. I admitted this patient to a continuous cardiac monitored bed. Caroline Cobos MD IN CLINIC/BEDSIDE [facility] Final Result * Type and screen (10/25/2024 4:10 PM CDT) Maryana, indirect Negative ABO Rh O Positive [facility] Blood 10/25/2024 4:10 PM CDT 10/25/2024 4:18 PM CDT Narrative [facility] - 10/25/2024 5:16 PM CDT Has the patient had Daratumumab or Isatuximab in the past 6 months?->Unknown Caroline Cobos MD LAB BLOOD BANK TEST OR DERABLES Final Result Performing Organization Address City/[facility]/ZIP Co de Phone Number ANUSHA DIXON [id number] [address] [employer] [place], [place] [id number] * POCT glucose (10/25/2024 4:06 PM CDT) Pathologist [facility] Glucose, POC 139 70 - 199 mg/dL POC Performer [phone] [facility] Blood 10/25/2024 4:06 PM CDT 10/25/2024 4:06 PM CDT Caroline Cobos MD LAB POCT ORDERABLES - DEVICE Final Result Performing Organization Address [facility] de Phone Number ANUSHA DIXON [address] [place] [address] * Troponin T high-sensitivity series (baseline, 2hr, 4hr, 6hr) (10/25/2024 4:05 PM CDT) Pathologist [facility] Trop T hs 19 <=22 ng/L Comment: Interpretive Data For further hscTnT resources including the diagnostic algorithm and an aid in interpretation, copy and paste this link: [email or web address].testcatalog.org/show/[email or web address] Current Interpretive Data last revised 2020. Blood 10/25/2024 4:05 PM CDT 10/25/2024 4:18 PM CDT Caroline Cobos MD LAB BLOOD ORDERABLES F inal Result Performing Organization Address [facility]/ZIP Co de Phone Number ANUSHA DIXON [address] [address] [place] [address] * eGFR (10/25/2024 4:05 PM CDT) Pathologist [facility] eGFR >90 >=60 mL/min/1. 73 m2 Comment: [...] interpretive data was last reviewed 2021. Blood 10/25/2024 4:05 PM CDT 10/25/2024 4:21 PM CDT Caroline Cobos MD LAB BLOOD ORDERABLES F inal Result [facility] [address] Department [place] [address] * (ABNORMAL) Differential, auto (10/25/2024 4:05 PM CDT) Neutrophil abs 6.19 1.50 - 6.50 K/cumm Imm gran abs 0.03 0.00 - 0.10 K/cumm [facility] Lymphocyte abs 2.67 0.80 - 3.30 K/cumm [facility] Monocyte abs 1.08(H) 0.20 - 0.80 K/cumm [facility] Eosinophil abs 0.44 0.00 - 0.50 K/cumm [facility] Basophil abs 0.05 0.00 - 0.10 K/cumm [facility] Neutrophil pct 59.2 % [facility] Comment: Interpretive Data Percent cell count reference ranges are not reported, since discordance with absolute values may lead to misinterpretation of CBC data. Current Interpretive Data was last revised on 2017. Imm gran pct 0.3 % [facility] Comment: Interpretive Data Percent cell count reference ranges are not reported, since discordance with absolute values may lead to misinterpretation of CBC data. Current Interpretive Data was last revised on 2017. Lymphocyte pct 25.5 % [facility] Comment: Interpretive Data Percent cell count reference ranges are not reported, since discordance with absolute values may lead to misinterpretation of CBC data. Current Interpretive Data was last revised on 2017. Monocyte pct 10.3 % [facility] Comment: Interpretive Data Percent cell count reference ranges are not reported, since discordance with absolute values may lead to misinterpretation of CBC data. Current Interpretive Data was last revised on 2017. Eosinophil pct 4.2 % [facility] Comment: Interpretive Data Percent cell count reference ranges are not reported, since discordance with absolute values may lead to misinterpretation of CBC data. Current Interpretive Data was last revised on 2017. Basophil pct 0.5 % [facility] Comment: Interpretive Data Percent cell count reference ranges are not reported, since discordance with absolute values may lead to misinterpretation of CBC data. Current Interpretive Data was last revised on 2017. Blood 10/25/2024 4:05 PM CDT 10/25/2024 4:18 PM CDT us Caroline Cobos MD LAB BLOOD ORDERABLES F inal Result [facility] [id number] Department [place] [address] * (ABNORMAL) CBC with auto differential (10/25/2024 4:05 PM CDT) WBC 10.46(H) 3.80 - 9.90 K/cumm Hgb 12.6(L) 13.0 - 17.5 g/dL [facility] Hct 39.2 38.9 - 50.3 % [facility] Plt 277 150 - 400 K/cumm [facility] MPV 10.0 9.1 - 12.3 fL [facility] RBC 4.20(L) 4.30 - 5.80 M/cumm [facility] MCV 93.3 81.3 - 96.4 fL [facility] MCH 30.0 27.1 - 33.3 pg [facility] MCHC 32.1(L) 32.3 - 35.7 g/dL [facility] RDW CV 14.1 11.1 - 14.9 % [facility] RDW SD 47.8 35.7 - 48.1 fL [facility] NRBC abs 0.00 0.00 - 0.01 K/cumm [facility] Blood 10/25/2024 4:05 PM CDT 10/25/2024 4:18 PM CDT Caroline Cobos MD LAB BLOOD ORDERABLES F inal Result ANUSHA DIXON [address] [address] Department of [employer] [place], [place] [id number] * (ABNORMAL) Prolactin (10/25/2024 4:05 PM CDT) Prolactin 62.8(H) 4.0 - 15.2 ng/mL Blood 10/25/2024 4:05 PM CDT 10/25/2024 5:01 PM CDT Caroline Cobos MD LAB BLOOD ORDERABLES F inal Result Performing Organization Address City/[facility]/ZIP Co de Phone Number ANUSHA [address] [address] Department of [employer] [place], [place] [id number] * aPTT (10/25/2024 4:05 PM CDT) aPTT 30 28 - 38 sec Comment: Interpretive Data Heparin therapeutic range: 66.0 - 100.0 seconds. Range based on correlation with therapeutic heparin activity range of 0.3 - 0.7 Units/mL. Current interpretive data was last revised on 2023. Blood 10/25/2024 4:05 PM CDT 10/25/2024 4:18 PM CDT Caroline Cobos MD LAB BLOOD ORDERABLES F inal Result Performing Organization Address [facility] Co de Phone Number [facility] [address] [address] [facility] [employer] [place], [place] [phone] * (ABNORMAL) Protime-INR (10/25/2024 4:05 PM CDT) PT 14.2(H) 9.7 - 13.0 sec INR 1.31(H) 0.90 - 1.20 [facility] Comment: Interpretive data Oral anticoagulant therapeutic ranges: Venous thromboembolism prophylaxis or treatment: 2.0-3.0 CARDIOLOGY Standard range: 2.0-3.0 High-intensity range: 2.5-3.5 Refer to indication-specific guidelines for appropriate target ranges for prosthetic heart valve replacement. Current interpretive data was last revised on 2019. Blood 10/25/2024 4:05 PM CDT 10/25/2024 4:18 PM CDT Caroline Cobos MD LAB BLOOD ORDERABLES F inal Result Performing Organization Address [facility] Co de Phone Number [facility] [address] [address] [place] [address] * Creatine kinase (CK), total (10/25/2024 4:05 PM CDT) Pathologist [facility] CK 56 40 - 300 Units/L Blood 10/25/2024 4:05 PM CDT 10/25/2024 5:01 PM CDT Caroline Cobos MD LAB BLOOD ORDERABLES F inal Result Performing Organization Address [facility] Co de Phone Number [facility] [address] [address] [facility] [place] [address] * Comprehensive metabolic panel (10/25/2024 4:05 PM CDT) Pathologist [facility] Sodium 135 135 - 145 mmol/L Potassium, pl 4.3 3.3 - 4.9 mmol/L [facility] Chloride 100 97 - 110 mmol/L [facility] CO2 24 22 - 32 mmol/L [facility] Anion gap 11 2 - 15 mmol/L [facility] BUN 16 6 - 25 mg/dL [facility] Creatinine 0.85 0.80 - 1.30 mg/dL [facility] Glucose 151 70 - 199 mg/dL [facility] Comment: [...] 2022. Calcium 9.5 8.5 - 10.3 mg/dL [facility] Bilirubin, total 0.8 0.1 - 1.2 mg/dL [facility] Protein, pl 7.2 6.5 - 8.5 g/dL [facility] Albumin 4.3 3.5 - 5.0 g/dL [facility] Alk phos 77 40 - 130 Units/L [facility] ALT 16 7 - 55 Units/L [facility] AST 26 10 - 50 Units/L [facility] Blood 10/25/2024 4:05 PM CDT 10/25/2024 4:18 PM CDT Caroline Cobos MD LAB BLOOD ORDERABLES F inal Result ANUSHA [address] [address] Department [place] [address] * ECG 12 lead (10/25/2024 4:04 PM CDT) 10/25/2024 4:04 PM CDT Narrative [facility] - 10/25/2024 7:51 PM CDT Vent Rate: 117 bpm RR Interval: 509 msec OK Interval: 166 msec QRS Duration: 108 msec QT Interval: 322 msec QTC Interval: 392 msec P-R-T [place]: 250 - 53 - 26 degrees IMPRESSION: Baseline artifact, probable sinus tachycardia SEPTAL MYOCARDIAL INFARCTION , PROBABLY OLD ABNORMAL ECG Recommend repeat EKG stable baseline for accurate rhythm assessment Electronically Signed By: Murphy Gaitan MD us Caroline Cobos MD ECG ORDERABLES Final Result [facility] * MRI Brain WO Contrast (09/16/2024 3:11 PM CDT) Anatomical Region Laterality Modality Head and Neck N/A Magnetic Resonan ce us Stacia Shanks NP IMG MRI PROCEDURES Final Res ult from Last 3 Months Additional Health Concerns Infection Onset Date Last Indicated Ring Surveillance: C. auris 12/08/202411/29 Insurance [employer] MEDICARE HMO [employer] MEDICARE HMO Advance Directives For more information, please contact: [phone] * Full Code (Latest Code Status on File) Date Activated Date Inactivated Comments 12/01/2024 8:53 AM 12/10/2024 12:14 AM * Full Code Date Activated Date Inactivated Comments 11/28/2024 9:50 AM 11/30/2024 1:17 PM * Full Code Date Activated Date Inactivated Comments 11/18/2024 1:59 PM 11/27/2024 9:48 AM * Full Code Date Activated Date Inactivated Comments 11/15/2024 12:43 PM 11/18/2024 1:38 PM * Full Code Date Activated Date Inactivated Comments 11/15/2024 12:29 PM 11/15/2024 12:43 PM 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 Relationship Specialty Start Date End Date Raquel Callejas MD [address] [facility] [address] [place] [address] PCP - General Internal Medicine 01/16/20 [place] [address] [address] [facility] [address] [place] [address] Consulting Physician Cardiology 08/28/20 Sage Tillman MD [address] [place] [address] Referring Physician Cardiology 12/09/24 [place] [id number] [address] [facility] [address] [place] [address] Consulting Physician Urology 12/09/24 [place] [address] [facility] [address] [address] Consulting Physician Neurology 12/09/24
--- OUTSIDE RECORDS SUMMARY | 2024-12-10 04:33 | XMS_ITS | Clinical Summary ---
Author Organization [facility] Address [address] [place] [address] Care Team Providers Care Counter Installer Name Role Phone Latanya Callejas MD Primary Care Provider Encounters Date Type Department Care Team Description 09/16/2024 10:11 AM CDT - 09/16/2024 11:59 PM CDT Hospital Encounter [facility] [address] Stacia Valentine, KAYLENE Discharge Disposition: Home or Self Care (Routine Discharge) 09/16/2024 Travel from Last 3 Months Social History Tobacco Use Types Packs/Day Years Used Date Smoking Tobacco: Never Assessed Sex and Gender Information Value Date Recorded Sex Assigned at Male 08/29/2024 11:55 AM CDT Legal Sex Male 9:38 AM CDT Gender Identity Male 08/29/2024 11:55 AM CDT Sexual Orientation Straight 08/29/2024 11 :55 AM CDT Plan of Treatment Health Maintenance Due Date Last Done Comments Colorectal Cancer Screening Colonoscopy (10 Years) 1950 Hepatitis C 11/15/1967 DTaP, Tdap and Td Vaccines (1 - Tdap) 1968 Annual Medicare Wellness Visit 2014 COVID-19 Vaccine ( season) 2024 04/06/2024, 03/06/2023, 05/14/2022, Additional history exists Pneumococcal Vaccine: 50+ Years Completed 09/09/2017, 09/05/2016 Zoster Vaccines Completed 08/14/2022, 06/16/2022 RSV Immunization or 60+ Years Completed 03/09/2023 Meningococcal B Vaccine Aged Out No l onger eligible based on patient's age to complete this topic Meningococcal Vaccine Aged Out No jorge lorena eligible based on patient's age to complete this topic RSV Immunizations Under 20 Months Aged Out No longer eligible based on patient's age to complete this topic Procedures Procedure Name Priority Date/Time Associated Diagnosis Comments MRI BRAIN WO CON Routine 09/16/2024 10:4 5 AM CDT Paresthesia Dizziness and giddiness History of stroke Intracranial vascular stenosis from Last 3 Months Results * MRI BRAIN WO CON (09/16/2024 10:45 AM CDT) Anatomical Region Laterality Modality Head Magnetic Resonan ce 09/16/2024 1:49 PM CDT Impressions 09/16/2024 1:58 PM CDT IMPRESSION: 1. No evidence of acute infarct or intracranial mass lesion. 2. Other chronic or nonurgent findings as described above. Referred By: STACIA VALENTINE Interpreted By: Nitesh Sepulveda MD, 09/16/2024 1:49 PM Narrative 09/16/2024 1:[address] PM CDT [address] [address] INDICATION: Lightheadedness, right-sided numbness EXAMINATION: MRI of the brain without contrast. TECHNIQUE: Multisequence multiplanar unenhanced imaging. DATE/TIME: 09/16/2024 10:30 AM COMPARISON: MRA 09/05/2024. FINDINGS: There is no evidence of restricted diffusion or acute infarct. There is no evidence of intracranial mass lesion, mass effect, or midline shift. There are multiple bilateral foci of periventricular and deep white matter T2 and FLAIR hyperintensity, likely due to chronic small vessel ischemic disease. There is mild to moderate volume loss with enlargement of the ventricles and hemispheric sulci. No abnormal extra-axial collections identified. Gradient images reveal no evidence of hemorrhage. Mild heterogeneity of the anterior pituitary gland, uncertain significance. The craniocervical junction and pineal region appear unremarkable. Mild mucosal thickening in the ethmoid air cells and maxillary sinuses bilaterally. Mastoid air cells, paranasal sinuses, and images of the orbits are otherwise unremarkable. Procedure Note Nitesh Sepulveda MD - 09/16/[address] [address] INDICATION: Lightheadedness, right-sided numbness EXAMINATION: MRI of the brain without contrast. TECHNIQUE: Multisequence multiplanar unenhanced imaging. DATE/TIME: 09/16/2024 10:30 AM COMPARISON: MRA 09/05/2024. FINDINGS: There is no evidence of restricted diffusion or acute infarct. There is noevidence of intracranial mass lesion, mass effect, or midline shift. Thereare multiple bilateral foci of periventricular and deep white matter T2and FLAIR hyperintensity, likely due to chronic small vessel ischemicdisease. There is mild to moderate volume loss with enlargement of theventricles and hemispheric sulci. No abnormal extra-axial collectionsidentified. Gradient images reveal no evidence of hemorrhage. Mildheterogeneity of the anterior pituitary gland, uncertain significance.The craniocervical junction and pineal region appear unremarkable. Mildmucosal thickening in the ethmoid air cells and maxillary sinusesbilaterally. Mastoid air cells, paranasal sinuses, and images of theorbits are otherwise unremarkable. IMPRESSION: 1. No evidence of acute infarct or intracranial mass lesion. 2. Other chronic or nonurgent findings as described above. 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
--- OUTSIDE RECORDS SUMMARY | 2024-12-10 04:33 | XMS_ITS | Referral Summary ---
Author Organization [facility] Address [address] [place] [address] Care Team Providers Care Client Development Consultant Name Role Phone Raquel Callejas MD Primary Care Provide r Chetan Mayer MD Unavailable Sage Tillman MD Unavailable Michael Pretty MD Unavailable [phone] Tawny CLAYTON MD, Ricky Duong Unavailable [phone] Encounters Date Type Department Care Team Description 11/27/2024 9:48 AM CDT - 12/09/2024 8:08 PM CDT Hospital Encounter [address] [address] Leanne Dockery MD Ogunremi, Olumide Omolulu, MD Perez Porcel, Jose Daniel, MD Hyperlipidemia (Primary Dx); Essential hypertension Discharge Disposition: Discharge to SNF 12/07/2024 10:00 AM CDT - 12/07/2024 12:35 PM CDT Surgery [facility] Electrophysiology Lab [address] [place] [address] [id number] Sage Tillman MD IMPLANT DUAL CHAMBER PPM SYSTEM W/ DUAL ELECTRODES (GEN AND LEADS, NEW OR REPLACE) [id number] 11/27/2024 Hospital Encounter [facility] ADMIT [address] [place] [address] 11/18/2024 1:38 PM CDT - 11/27/2024 9:50 AM CDT Hospital Encounter [facility] and [place] [phone] Riri Hudson MD Rudomiotov, Olga, MD Acute CVA (cerebrovascular accident) (HCC) [I63.9] (Primary Dx) Discharge Disposition: Admitted as an inpatient to [facility] 11/15/2024 9:30 AM CDT - 11/18/2024 1:35 PM CDT Hospital Encounter [place] [phone] Otto Redd MD Burton, Jeffrey Ryan, DO Perez Porcel, Jose Daniel, MD Episode of unresponsiveness (Primary Dx); CVA (cerebrovascular accident due to intracerebral hemorrhage) (HCC); Transient alteration of awareness Discharge Disposition: Discharge to an Rehab facility 11/16/2024 Orders Only [facility] Cardiac Catheterization Lab [address] [place] [address] Sage Tillman MD Episode of unresponsiveness (Primary Dx) 10/28/2024 4:10 PM CDT - 11/15/2024 9:01 AM CDT Hospital Encounter [facility] and [address] [address] Riri Hudson MD Burton, Jeffrey Ryan, DO Acute CVA (cerebrovascular accident) (HCC) (Primary Dx) Discharge Disposition: Admitted as an inpatient to [facility] 10/28/2024 9:04 AM CDT Anesthesia Event [facility] GI Lab [address] [place] [address] Jasmin Han MD PhD Gibbons, Jesse Graham, AA 10/28/2024 8:56 AM CDT - 10/28/2024 9:26 AM CDT Surgery [facility] GI Lab [address] [place] [address] Cate Dai MD TRANSESOPHAGEAL ECHOCARDIOGRAM 10/25/2024 4:03 PM CDT - 10/28/2024 4:09 PM CDT Hospital Encounter [address] [address] Caroline Cobos MD Ogunremi, Olumide Omolulu, MD Onaghise, Jude, MD Acute CVA (cerebrovascular accident) (HCC) (Primary Dx) Discharge Disposition: Discharge to an Rehab facility 10/27/2024 Orders Only [facility] Cardiac Catheterization Lab [address] [place] [id number] Santana Bansal MD Acute CVA (cerebrovascular accident) (HCC) (Primary Dx) 09/13/2024 Results Follow-Up [facility] Neurology [address] [place] [phone] Stacia Shanks NP MRA Head WO Contrast, MRI Brain WO Contrast 09/13/2024 Orders Only [facility] Neurology [address] [place] [phone] Stacia Shanks NP Paresthesia; Dizziness and giddiness; History of stroke; Intracranial vascular stenosis from Last 3 Months Allergies Active Allergy Reactions Criticality Noted Date [...] spray into each nostril every morning 10/03/19 22 025 Discontinued atorvastatin (LIPITOR) 80 mg tablet [...] 01/30/2020 Nocturia 09/05/2016 Dizziness and giddiness 11/22/2015 Immunizations Immunization Administration Dates Next Due Influenza, Quadrivalent, Hig h Dose, Preservative Free, Intrr 03/06/2020 Influenza, Quadrivalent, Spl it, Preservative Free, Intramuscular 05/16/2016 Influenza, Trivalent, High D ose, Split, Preservative Free, Intramuscular 03/27/2017,04/12/2015 Moderna SARS-CoV-2 Monovalent Vaccination (12+ Y RS) 08/07/2020,07/10/2020 Pneumococcal Conjugate PCV 13 09/05/2016 Pneumococcal Polysaccharide PPV23 09/09/2017 Social History Tobacco Use Types Packs/Day Years Used Date Smoking Tobacco: Former Cigarettes Q uit: 1999 Smokeless Tobacco: Never Alcohol Use Standard Drinks/Week Comments Yes 30 (1 standard drink = 0.6 oz pu re alcohol) [facility] Utilities Answer Date Recorded In the [...] week 11/28/2024 How often do you attend oriental orthodox or jewish serv ices? Never 11/28/2024 Do you belong to any clubs o r organizations such as oriental orthodox groups, unions, fraternal or athletic groups, or [...] Recorded Patient Health Questionnaire-2 Score 0 11/27/2024 [facility] - Occupational Stress [...] any time in the past 12 m [facility], were you homeless or living in a care home (including now)? No 11/28/2024 Personal Safety Answer Date Recorded Have you ever been in or are you currently in a harmful physical or emotional relationship or is someone making you feel afraid or unsafe? 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 Gender Identity Not on file Sexual Orientation Not on file Last Filed Vital Signs Vital Sign Reading [...] 12/01/2024 12:55 PM CDT Plan of Treatment Not on file Medical Devices Implanted Type Area Corporate Technical Recruiter Device Identifier Shelf Expiration Date Model / Serial / Lot [employer] Rillito S Mri Surescan 50.8x46.6mm 2 Chamber 7.4mm Pacemaker 22.5gm [id number] - [id number] - [id number] Implanted:Qty: 1 on 12/07/2024 by Sage Tillman MD at [facility] Pacemaker Med[employer]onic Inc 02/26/2026 [id number] / [id number] / N[employer] Tornier Aequalis Perform Od25 Mm Lateralize Augment Reverse Shoulder +6 Mm Baseplate Glenoid [id number] - [id number] - [id number] Implanted:Qty: 1 on 05/29/2023 by Tatianna Lewis MD at [facility] Right: Shoulder [employer] [id number] 01/01/2028 [id number] / [id number] / Description:Time out complet ed [employer] Aequalis Perform Reversed 6.5mm 35mm Central Glenoid Screw [id number] - [id number] Implanted:Qty: 1 on 05/29/2023 by Tatianna Lewis MD at [facility] Right: Shoulder [employer] [id number] / / [employer] Aequalis Perform Reversed 5mm 30mm Peripheral Glenoid Screw Syv691 - [id number] Implanted:Qty: 1 on 05/29/2023 by Tatianna Lewis MD at [facility] Right: Shoulder [employer] [id number] / / [employer] Aequalis Perform Reversed 5mm 34mm Peripheral Glenoid Screw Tod030 - [id number] Implanted:Qty: 1 on 05/29/2023 by Tatianna Lewis MD at [facility] Right: Shoulder [employer] [id number] / / [employer] Aequalis Perform Reversed 5mm 18mm Peripheral Glenoid Screw Wet610 - [id number] Implanted:Qty: 2 on 05/29/2023 by Tatianna Lewis MD at [facility] Right: Shoulder [employer] [id number] / / [employer] Tornier Aequalis Perform 39mm Reverse Shoulder Standard Sphere Pff912 - [id number] - [id number] Implanted:Qty: 1 on 05/29/2023 by Tatianna Lewis MD at [facility] Right: Shoulder [employer] [id number] 10/01/2027 [id number] / [id number] / [employer] Insert Humeral Retention Reverse Size 3/4 +0 Perform 39mm Combination Avd4810 - [id number] - [id number] Implanted:Qty: 1 on 05/29/2023 by Tatianna Lewis MD at [facility] Right: Shoulder [employer] [id number] 02/13/2028 [id number] / [id number] / [employer] Stem Perform Sz 3 Plus Humeral Long Dwx3pl - [id number] - [id number] Implanted:Qty: 1 on 05/29/2023 by Tatianna Lewis MD at [facility] Right: Shoulder [employer] [id number] 02/06/2028 [id number] / [id number] / Medtronic Inc Capsurefix Novus 6.2fr 2mm 52cm Bipolar Screw In Implantable Latex Free 5076-52 - [id number] - [id number] Implanted:Qty: 1 on 12/07/2024 by Sage Tillman MD at [facility] [employer] 08/22/2026 5076-52 / [id number] / Medtronic Inc Capsurefix Novus 6.2fr 2mm 58cm Bipolar Screw In Implantable 5076-58 - [id number] - [id number] Implanted:Qty: 1 on 12/07/2024 by Sage Tillman MD at [facility] [employer] 03/02/2026 5076-58 / [id number] / Procedures Procedure Name Priority Date/Time [...] 11:48 AM CDTThis note is in progress. Prevacus Job ID: [id number] Prevacus Document ID: [id number] Dictated date/time: [id number] Mr. Barnhart is a 74-year-old male who [...] through the sheath and overthese wires a 7-Chinese sheath was placed in the right atrium. [...] The leads were then connected to a [employer] MRI compatible generator. The leads [...] the leftpectoral area. Job ID/Internal Job ID: [id number] EGFR Routine 12/07/2024 3:30 AM CDT BASIC [...] STAT 11/25/2024 2:54 PM CDT INFECTION PREVENTION CORI AURIS PCR, SURVEILLANCE Routine 11/25/2024 12:38 PM [...] WO CONTRAST Critical/Life-Threatening 10/25/2024 4:55 PM CDT [place] CRITICAL CARE ILL/INJURED PATIENT INIT 30-74 MIN [...] MD LAB BLOOD ORDERABLES Final Re sult [facility] [address] Department [place] [address] * (ABNORMAL) CBC without differential (12/09/2024 6:37 AM CDT) WBC 10.56(H) 3.80 - 9.90 K/cumm Hgb 11.1(L) 13.0 - 17.5 g/dL [facility] Hct 34.2(L) 38.9 - 50.3 % [facility] Plt 432(H) 150 - 400 K/cumm [facility] MPV 9.4 9.1 - 12.3 fL [facility] RBC 3.80(L) 4.30 - 5.80 M/cumm [facility] MCV 90.0 81.3 - 96.4 fL [facility] MCH 29.2 27.1 - 33.3 pg [facility] MCHC 32.5 32.3 - 35.7 g/dL [facility] RDW CV 14.6 11.1 - 14.9 % [facility] RDW SD 48.0 35.7 - 48.1 fL [facility] NRBC abs 0.00 0.00 - 0.01 K/cumm [facility] Blood 12/09/2024 6:37 AM CDT 12/09/2024 7:03 AM CDT Leanne Dockery MD LAB BLOOD ORDERABLES Final Re sult [facility] [address] [place] [address] * (ABNORMAL) Basic metabolic panel (12/09/2024 6:37 AM CDT) Sodium 132(L) 135 - 145 mmol/L Potassium, pl 4.2 3.3 - 4.9 mmol/L [facility] Chloride 101 97 - 110 mmol/L [facility] CO2 19(L) 22 - 32 mmol/L [facility] Anion gap 12 2 - 15 mmol/L [facility] BUN 12 6 - 25 mg/dL [facility] Creatinine 0.71(L) 0.80 - 1.30 mg/dL [facility] Glucose 108 70 - 199 mg/dL [facility] Comment: Interpretive Data Fasting glucose >/= [...] 2022. Calcium 9.5 8.5 - 10.3 mg/dL [facility] Blood 12/09/2024 6:37 AM CDT 12/09/2024 7:04 AM CDT Leanne Dockery MD LAB BLOOD ORDERABLES Final Re sult [facility] [address] [place] [address] * eGFR (12/08/2024 6:02 AM CDT) eGFR [...] MD LAB BLOOD ORDERABLES Final Re sult [facility] [address] [place] [address] * (ABNORMAL) Basic metabolic panel (12/08/2024 6:02 AM CDT) Sodium 137 135 - 145 mmol/L Potassium, pl 4.3 3.3 - 4.9 mmol/L [facility] Chloride 105 97 - 110 mmol/L [facility] CO2 20(L) 22 - 32 mmol/L [facility] Anion gap 12 2 - 15 mmol/L [facility] BUN 14 6 - 25 mg/dL [facility] Creatinine 0.78(L) 0.80 - 1.30 mg/dL [facility] Glucose 95 70 - 199 mg/dL [facility] Comment: Interpretive Data Fasting glucose >/= [...] classification and Diagnosis of Diabetes Diabetes Care 2022; 46: S19-S40. Current interpretive data was last revised 2022. Calcium 9.3 8.5 - 10.3 mg/dL [facility] Blood 12/08/2024 6:02 AM CDT 12/08/2024 6:50 AM CDT Leanne Dockery MD LAB BLOOD ORDERABLES Final Re sult [facility] [address] [place] [address] * X-ray chest 1 view (Portable) (12/07/2024 [...] LAB BLOOD ORDERABLES Final Re sult [facility] [address] [place] [address] * (ABNORMAL) CBC without differential (12/07/2024 3:30 AM CDT) WBC 11.69(H) 3.80 - 9.90 K/cumm Hgb 11.0(L) 13.0 - 17.5 g/dL [facility] Hct 34.4(L) 38.9 - 50.3 % [facility] Plt 468(H) 150 - 400 K/cumm [facility] MPV 9.4 9.1 - 12.3 fL [facility] RBC 3.85(L) 4.30 - 5.80 M/cumm [facility] MCV 89.4 81.3 - 96.4 fL [facility] MCH 28.6 27.1 - 33.3 pg [facility] MCHC 32.0(L) 32.3 - 35.7 g/dL [facility] RDW CV 14.5 11.1 - 14.9 % [facility] RDW SD 46.5 35.7 - 48.1 fL [facility] NRBC abs 0.00 0.00 - 0.01 K/cumm [facility] Blood 12/07/2024 3:30 AM CDT 12/07/2024 4:17 AM CDT Leanne Dockery MD LAB BLOOD ORDERABLES Final Re sult [facility] [address] [place] [address] * (ABNORMAL) Basic metabolic panel (12/07/2024 3:30 AM CDT) Sodium 138 135 - 145 mmol/L Potassium, pl 3.8 3.3 - 4.9 mmol/L [facility] Chloride 106 97 - 110 mmol/L [facility] CO2 19(L) 22 - 32 mmol/L [facility] Anion gap 13 2 - 15 mmol/L [facility] BUN 14 6 - 25 mg/dL [facility] Creatinine 0.86 0.80 - 1.30 mg/dL [facility] Glucose 95 70 - 199 mg/dL [facility] Comment: Interpretive Data Fasting glucose >/= 126 [...] 2022. Calcium 9.2 8.5 - 10.3 mg/dL [facility] Blood 12/07/2024 3:30 AM CDT 12/07/2024 4:16 AM CDT Leanne Dockery MD LAB BLOOD ORDERABLES Final Re sult Performing Organization Address City/[facility]/ZIP Co de Phone Number [facility] [address] [place] [address] * Phosphorus (12/06/2024 3:17 PM CDT) Pathologist [facility] Phosphorus, pl 3.7 2.3 - 4.5 mg/dL Blood 12/06/2024 3:17 PM CDT 12/06/2024 4:17 PM CDT Son Card MD LAB BLOOD ORDERABLES Final Result Performing Organization Address [facility]/ZIP Co de Phone Number [facility] D[facility] [address] [place] [address] * Magnesium (12/06/2024 3:17 PM CDT) Pathologist [facility] Magnesium 1.9 1.4 - 2.5 mg/dL Blood 12/06/2024 3:17 PM CDT 12/06/2024 4:17 PM CDT Son Card MD LAB BLOOD ORDERABLES Final Result Performing Organization Address [facility] Co de Phone Number [facility] D[facility]ON [address] [place] [address] * eGFR (12/06/2024 5:04 AM CDT) [facility] eGFR 90 >=60 mL/min/1. 73 m2 Comment: [...] BLOOD ORDERABLES Final Re sult [facility] [address] [place] [address] * (ABNORMAL) CBC without differential [...] MCV 89.4 81.3 - 96.4 fL [facility] MCH 29.3 27.1 - 33.3 pg [facility] MCHC 32.7 32.3 - 35.7 g/dL [facility] RDW CV 14.5 11.1 - 14.9 % [facility] CH RDW SD 46.8 35.7 - 48.1 fL [facility] NRBC abs 0.00 0.00 - 0.01 K/cumm [facility] Blood 12/06/2024 5:04 AM CDT 12/06/2024 5:56 AM CDT Leanne Dockery MD LAB BLOOD ORDERABLES Final Re sult [facility] [address] [place] [address] * (ABNORMAL) Basic metabolic panel (12/06/2024 5:04 AM CDT) Sodium 138 135 - 145 mmol/L Potassium, pl 3.3 3.3 - 4.9 mmol/L [facility] Chloride 104 97 - 110 mmol/L [facility] CO2 21(L) 22 - 32 mmol/L [facility] Anion gap 13 2 - 15 mmol/L [facility] BUN 15 6 - 25 mg/dL [facility] Creatinine 0.87 0.80 - 1.30 mg/dL [facility] Glucose 104 70 - 199 mg/dL [facility] Comment: Interpretive Data Fasting glucose >/= [...] 2022. Calcium 9.4 8.5 - 10.3 mg/dL [facility] Blood 12/06/2024 5:04 AM CDT 12/06/2024 5:55 AM CDT Leanne Dockery MD LAB BLOOD ORDERABLES Final Re sult [facility] [address] [place] [address] * ECG 12 lead (12/05/2024 11:44 AM CDT) 12/05/2024 11:4 4 AM CDT Narrative [facility] - 12/05/2024 12:39 PM CDT Vent Rate: 117 bpm RR Interval: 510 msec [place] Interval: 0 msec QRS Duration: 100 msec QT Interval: 331 msec QTC Interval: 401 msec P-R-T [place]: 0 - 16 - -9 degrees IMPRESSION: ATRIAL FLUTTER WITH RAPID VENTRICULAR RESPONSE SEPTAL MYOCARDIAL INFARCTION , PROBABLY OLD [40+ ms Q WAVE IN V1/V2] ABNORMAL ECG Compared to prior EKG, heart rate has increased Atrial flutter replaced sinus rhythm Electronically Signed By: Murphy Gaitan MD Sage Tillman MD ECG ORDERABLES Final Result Performing Organization Address City/[facility]/ZIP Co de Phone Number [facility] * eGFR (12/05/2024 5:41 AM CDT) eGFR [...] BLOOD ORDERABLES Final Re sult [facility] [address] [place] [address] * (ABNORMAL) CBC without differential (12/05/2024 5:41 AM CDT) WBC 8.00 3.80 - 9.90 K/cumm Hgb 11.7(L) 13.0 - 17.5 g/dL [facility] Hct 36.4(L) 38.9 - 50.3 % [facility] Plt 502(H) 150 - 400 K/cumm [facility] CH MPV 9.1 9.1 - 12.3 fL [facility] RBC 4.08(L) 4.30 - 5.80 M/cumm [facility] CH MCV 89.2 81.3 - 96.4 fL [facility] MCH 28.7 27.1 - 33.3 pg [facility] MCHC 32.1(L) 32.3 - 35.7 g/dL [facility] CH RDW CV 14.5 11.1 - 14.9 % [facility] CH RDW SD 46.7 35.7 - 48.1 fL [facility] NRBC abs 0.00 0.00 - 0.01 K/cumm [facility] Blood 12/05/2024 5:41 AM CDT 12/05/2024 5:49 AM CDT us Leanne Dockery MD LAB BLOOD ORDERABLES Final Re sult [facility] [address] [place] [address] * (ABNORMAL) Basic metabolic panel (12/05/2024 5:41 AM CDT) Sodium 138 135 - 145 mmol/L Potassium, pl 3.5 3.3 - 4.9 mmol/L [facility] Chloride 104 97 - 110 mmol/L [facility] CO2 22 22 - 32 mmol/L [facility] Anion gap 12 2 - 15 mmol/L [facility] BUN 13 6 - 25 mg/dL [facility] Creatinine 0.77(L) 0.80 - 1.30 mg/dL [facility] Glucose 114 70 - 199 mg/dL [facility] Comment: Interpretive Data Fasting glucose >/= [...] 2022. Calcium 9.7 8.5 - 10.3 mg/dL [facility] Blood 12/05/2024 5:41 AM CDT 12/05/2024 5:48 AM CDT Leanne Dockery MD LAB BLOOD ORDERABLES Final Re sult Performing Organization Address City/[facility]/ZIP Co de Phone Number AN[facility] ZACK [address] Department [email or web address] [address] * eGFR (12/04/2024 6:47 AM CDT) eGFR [...] LAB [place]LO[place] [address] [address] [place] [address] * (ABNORMAL) CBC without differential (12/04/2024 6:47 AM CDT) Pathologist [facility] WBC 8.73 3.80 - 9.90 K/cumm Hgb 11.7(L) 13.0 - 17.5 g/dL [facility] Hct 35.3(L) 38.9 - 50.3 % [facility] Plt 490(H) 150 - 400 K/cumm [facility] CH MPV 9.2 9.1 - 12.3 fL [facility] RBC 4.02(L) 4.30 - 5.80 M/cumm [facility] CH MCV 87.8 81.3 - 96.4 fL [facility] CH MCH 29.1 27.1 - 33.3 pg [facility] MCHC 33.1 32.3 - 35.7 g/dL [facility] RDW CV 14.4 11.1 - 14.9 % [facility] CH RDW SD 45.9 35.7 - 48.1 fL [facility] NRBC abs 0.00 0.00 - 0.01 K/cumm [facility] Blood 12/04/2024 6:47 AM CDT 12/04/2024 7:37 AM CDT us Leanne Dockery MD LAB BLOOD ORDERABLES Final Re sult [facility] [address] Department [place] [address] * (ABNORMAL) Basic metabolic panel (12/04/2024 6:47 AM CDT) Pathologist [facility] Sodium 137 135 - 145 mmol/L Potassium, pl 3.7 3.3 - 4.9 mmol/L [facility] Chloride 102 97 - 110 mmol/L [facility] CO2 21(L) 22 - 32 mmol/L [facility] Anion gap 14 2 - 15 mmol/L [facility] CH BUN 13 6 - 25 mg/dL [facility] Creatinine 0.76(L) 0.80 - 1.30 mg/dL [facility] Glucose 120 70 - 199 mg/dL [facility] Comment: [...] Calcium 9.4 8.5 - 10.3 mg/dL [facility] Blood 12/04/2024 6:47 AM CDT 12/04/2024 7:37 AM CDT us Leanne Dockery MD LAB BLOOD ORDERABLES Final Re sult [facility] [address] [place] [address] * eGFR (12/03/2024 6:23 AM CDT) eGFR [...] ORDERABLES Final Re sult Performing Organization Address City/[facility]/ZIP Co de Phone Number [facility] [address] Department of [employer] [place], [place] [id number] * (ABNORMAL) CBC without differential (12/03/2024 6:23 AM CDT) WBC 8.34 3.80 - 9.90 K/cumm Hgb 11.1(L) 13.0 - 17.5 g/dL [facility] Hct 34.5(L) 38.9 - 50.3 % [facility] CH Plt 423(H) 150 - 400 K/cumm [facility] CH MPV 9.1 9.1 - 12.3 fL [facility] CH RBC 3.90(L) 4.30 - 5.80 M/cumm [facility] CH MCV 88.5 81.3 - 96.4 fL [facility] CH MCH 28.5 27.1 - 33.3 pg [facility] MCHC 32.2(L) 32.3 - 35.7 g/dL [facility] CH RDW CV 14.4 11.1 - 14.9 % [facility] CH RDW SD 46.2 35.7 - 48.1 fL [facility] NRBC abs 0.00 0.00 - 0.01 K/cumm [facility] Blood 12/03/2024 6:23 AM CDT 12/03/2024 6:29 AM CDT Leanne Dockery MD LAB BLOOD ORDERABLES Final Re sult [facility] [address] [place] [address] * (ABNORMAL) Basic metabolic panel (12/03/2024 6:23 AM CDT) Sodium 136 135 - 145 mmol/L Potassium, pl 3.6 3.3 - 4.9 mmol/L [facility] Chloride 102 97 - 110 mmol/L [facility] CO2 22 22 - 32 mmol/L [facility] Anion gap 12 2 - 15 mmol/L [facility] BUN 13 6 - 25 mg/dL [facility] Creatinine 0.76(L) 0.80 - 1.30 mg/dL [facility] Glucose 103 70 - 199 mg/dL [facility] Comment: Interpretive Data Fasting glucose >/= [...] 2022. Calcium 9.3 8.5 - 10.3 mg/dL [facility] Blood 12/03/2024 6:23 AM CDT 12/03/2024 6:29 AM CDT us Leanne Dockery MD LAB BLOOD ORDERABLES Final Re sult [facility] [address] Department of Laboratories [place], [place] [id number] * eGFR (12/02/2024 6:50 AM CDT) eGFR [...] of Race in Diagnosing Kidney Disease, JASN 2021). The CKD-EPI equation should not be used for patients with unstable renal function and has not been validated in children and those over 70. Current interpretive data was last reviewed 2021. Blood 12/02/2024 6:50 AM CDT 12/02/2024 7:17 AM CDT Leanne Dockery MD LAB BLOOD ORDERABLES Final Re sult Performing Organization Address [facility] Co de Phone Number [facility] DIXON [address] Department [email or web address] [place] [address] * (ABNORMAL) CBC without differential (12/02/2024 6:50 AM CDT) WBC 9.22 3.80 - 9.90 K/cumm Hgb 11.1(L) 13.0 - 17.5 g/dL [facility] Hct 33.9(L) 38.9 - 50.3 % [facility] Plt 393 150 - 400 K[facility] MPV 9.5 9.1 - 12.3 fL [facility] RBC 3.85(L) 4.30 - 5.80 M/cumm [facility] CH MCV 88.1 81.3 - 96.4 fL [facility] CH MCH 28.8 27.1 - 33.3 pg CERNER MCHC 32.7 32.3 - 35.7 g/dL CERN[facility] CH RDW CV 13.9 11.1 - 14.9 % CERNER CH RDW SD 44.8 35.7 - 48.1 fL [facility] NRBC abs 0.00 0.00 - 0.01 K/cumm C[facility] CH Blood 12/02/2024 6:50 AM CDT 12/02/2024 7:17 AM CDT Leanne Dockery MD LAB BLOOD ORDERABLES Final Re sult Performing Organization Address [facility] Co de Phone Number ANUSHA DIXON [phone] [address] Department [email or web address] [address] * (ABNORMAL) Basic metabolic panel (12/02/2024 6:50 AM CDT) Sodium 134(L) 135 - 145 mmol/L Potassium, pl 3.6 3.3 - 4.9 mmol/L [facility] Chloride 100 97 - 110 mmol/L [facility] CH CO2 24 22 - 32 mmol/L [facility] CH Anion gap 10 2 - 15 mmol/L [facility] CH BUN 10 6 - 25 mg/dL [facility] Creatinine 0.78(L) 0.80 - 1.30 mg/dL [facility] CH Glucose 99 70 - 199 mg/dL [facility] Comment: Interpretive Data Fasting glucose >/= 126 [...] 2022. Calcium 9.5 8.5 - 10.3 mg/dL [facility] Blood 12/02/2024 6:50 AM CDT 12/02/2024 7:17 AM CDT us Leanne Dockery MD LAB BLOOD ORDERABLES Final Re sult [facility] [id number] [place] [address] * eGFR (12/01/2024 4:24 AM CDT) eGFR [...] LAB BLOOD ORDERABLES Final Re sult ANUSHA [address] Department of Laboratories [place] [id number] * (ABNORMAL) CBC without differential (12/01/2024 4:24 AM CDT) WBC 8.01 3.80 - 9.90 K/cumm Hgb 10.5(L) 13.0 - 17.5 g/dL [facility] Hct 32.4(L) 38.9 - 50.3 % [facility] Plt 351 150 - 400 K/cumm [facility] MPV 9.5 9.1 - 12.3 fL [facility] RBC 3.68(L) 4.30 - 5.80 M/cumm [facility] MCV 88.0 81.3 - 96.4 fL [facility] MCH 28.5 27.1 - 33.3 pg [facility] MCHC 32.4 32.3 - 35.7 g/dL [facility] RDW CV 13.9 11.1 - 14.9 % [facility] RDW SD 45.7 35.7 - 48.1 fL [facility] NRBC abs 0.00 0.00 - 0.01 K/cumm [facility] Blood 12/01/2024 4:2 4 AM CDT 12/01/2024 4:55 AM CDT Leanne Dockery MD LAB BLOOD ORDERABLES Final Re sult ANUSHA DIXON [address] Department [email or web address] [address] * (ABNORMAL) Basic metabolic panel (12/01/2024 4:24 AM CDT) Sodium 132(L) 135 - 145 mmol/L Potassium, pl 3.5 3.3 - 4.9 mmol/L [facility] Chloride 100 97 - 110 mmol/L [facility] CO2 21(L) 22 - 32 mmol/L [facility] Anion gap 11 2 - 15 mmol/L [facility] BUN 10 6 - 25 mg/dL [facility] Creatinine 0.71(L) 0.80 - 1.30 mg/dL [facility] Glucose 107 70 - 199 mg/dL [facility] Comment: Interpretive Data Fasting glucose >/= [...] 2022. Calcium 9.0 8.5 - 10.3 mg/dL [facility] Blood 12/01/2024 4:24 AM CDT 12/01/2024 4:49 AM CDT Leanne Dockery MD LAB BLOOD ORDERABLES Final Re sult ANUSHA DIXON [address] Department [email or web address] [address] * eGFR (11/30/2024 5:09 AM CDT) eGFR [...] MD LAB BLOOD ORDERABLES Final Re sult [facility] [address] [place] [address] * (ABNORMAL) CBC without differential (11/30/2024 5:09 AM CDT) WBC 9.18 3.80 - 9.90 K/cumm Hgb 10.6(L) 13.0 - 17.5 g/dL [facility] Hct 31.8(L) 38.9 - 50.3 % [facility] Plt 347 150 - 400 K/cumm [facility] MPV 9.4 9.1 - 12.3 fL [facility] RBC 3.62(L) 4.30 - 5.80 M/cumm [facility] MCV 87.8 81.3 - 96.4 fL [facility] MCH 29.3 27.1 - 33.3 pg [facility] MCHC 33.3 32.3 - 35.7 g/dL [facility] RDW CV 13.9 11.1 - 14.9 % [facility] RDW SD 45.1 35.7 - 48.1 fL [facility] CH NRBC abs 0.00 0.00 - 0.01 K/cumm [facility] CH Blood 11/30/2024 5:09 AM CDT 11/30/2024 5:18 AM CDT Leanne Dockery MD LAB BLOOD ORDERABLES Final Re sult Performing Organization Address City/[facility]/ZIP Co de Phone Number ANUSHA [address] Department [email or web address] [place] [address] * (ABNORMAL) Basic metabolic panel (11/30/2024 5:09 AM CDT) Sodium 132(L) 135 - 145 mmol/L Potassium, pl 3.8 3.3 - 4.9 mmol/L [facility] Chloride 102 97 - 110 mmol/L [facility] CO2 19(L) 22 - 32 mmol/L [facility] Anion gap 11 2 - 15 mmol/L [facility] BUN 12 6 - 25 mg/dL [facility] Creatinine 0.66(L) 0.80 - 1.30 mg/dL [facility] Glucose 106 70 - 199 mg/dL [facility] Comment: Interpretive Data Fasting glucose >/= [...] ORDERABLES Final Re sult Performing Organization Address City/[facility]/ZIP Co de Phone Number ANUSHA [address] [place] [address] * NM MPI SPECT (Rest and/or Stress) [...] the Cardiovascular Division is available in the [facility] electronic medical record. Standard myocardial perfusion [...] the Cardiovascular Division is available in the [facility] electronic medical record. Standard myocardial perfusion [...] it. Electronically signed by: Jarrett Martinez M.D. us Santana Bansal MD IMG TX PROCEDURES Final Result * Stress Test for Myocardial Perfusion (11/29/2024 2:26 PM CDT) Anatomical Region Laterality Modality Nuclear Medicine 11/29/2024 8:30 AM CDT Narrative 11/30/2024 8:15 [place] [address] MPI Imaging Report Patient Name: AYAD BARNHART R : 1950 Study Date: 11/29/2024 8:30:00 AM Gender: M Tech: Location: [id number] Ref Provider: SANTANA BANSAL Height(Cm): BSA: Weight(Kg): [...] study. Electronically Signed By: Chalo Gaytan MD [place]ague 11/30/2024 7:28:24 AM CDT Procedure Note Chalo Gaytan MD - 11/30/2024 [place] [address] MPI Imaging Report Patient Name: AYAD BARNHART R : 1950 Study Date: 11/29/2024 8:30:00 AM Gender: M Tech: Location: [address] Provider: SANTANA BANSAL Height(Cm): BSA: Weight(Kg): [...] study. Electronically Signed By: Chalo Gaytan MD MHB 11/30/2024 7:28:24 AM CDT us Santana Bansal MD CV STRESS PROCEDURES Final Resu lt * (ABNORMAL) Troponin T high-sensitivity 4-hour (11/29/2024 10:28 AM CDT) Trop T hs 25(H) <=22 ng/L Comment: Interpretive Data For further hscTnT resources including the diagnostic algorithm and an aid in interpretation, copy and paste this link: [email or web address] Current Interpretive Data last revised 2020. Trop T hs delta 0 ng/L [facility] CH Trop T hs interp Insignificant [facility] Blood 11/29/2024 10:2 8 AM CDT 11/29/2024 10:41 AM CDT us Carlos Osborn MD LAB BLOOD ORDERABLES Final Result [facility] [address] [place] [address] * (ABNORMAL) Troponin T high-sensitivity 2-hour (11/29/2024 9:02 AM CDT) Trop T hs 24(H) <=22 ng/L Comment: Interpretive Data For further hscTnT resources including the diagnostic algorithm and an aid in interpretation, copy and paste this link: [email or web address] Current Interpretive Data last revised 2020. Trop T hs delta -1 ng/L [facility] CH Trop T hs interp Insignificant [facility] Blood 11/29/2024 9:02 AM CDT 11/29/2024 9:22 AM CDT Calros Osborn MD LAB BLOOD ORDERABLES Final Result Performing Organization Address [facility] Co de Phone Number ANUSHA DIXON [address] [place] [place] [address] * (ABNORMAL) Troponin T high-sensitivity series (baseline, [...] BLOOD ORDERABLES Final Result Performing Organization Address [facility] Co de Phone Number ANUSHA DIXON [address] [place] [address] * eGFR (11/29/2024 6:13 AM CDT) eGFR [...] ORDERABLES Final Re sult Performing Organization Address City/[facility]/ZIP Co de Phone Number ANUSHA DIXON [address] [email or web address] [address] * (ABNORMAL) CBC without differential (11/29/2024 6:13 AM CDT) WBC 12.20(H) 3.80 - 9.90 K/cumm Hgb 10.5(L) 13.0 - 17.5 g/dL [facility] Hct 32.6(L) 38.9 - 50.3 % [facility] Plt 321 150 - 400 K/cumm [facility] MPV 9.5 9.1 - 12.3 fL [facility] RBC 3.65(L) 4.30 - 5.80 M/cumm [facility] MCV 89.3 81.3 - 96.4 fL [facility] CH MCH 28.8 27.1 - 33.3 pg [facility] MCHC 32.2(L) 32.3 - 35.7 g/dL [facility] CH RDW CV 14.1 11.1 - 14.9 % [facility] RDW SD 46.3 35.7 - 48.1 fL [facility] NRBC abs 0.00 0.00 - 0.01 K/cumm [facility] Blood 11/29/2024 6:13 AM CDT 11/29/2024 6:25 AM CDT Leanne Dockery MD LAB BLOOD ORDERABLES Final Re sult Performing Organization Address City/[facility]/ZIP Co de Phone Number ANUSHA DIXON [address] Department [email or web address] [address] * (ABNORMAL) Basic metabolic panel (11/29/2024 6:13 AM CDT) Sodium 131(L) 135 - 145 mmol/L Potassium, pl 4.1 3.3 - 4.9 mmol/L [facility] Chloride 101 97 - 110 mmol/L [facility] CO2 20(L) 22 - 32 mmol/L [facility] Anion gap 10 2 - 15 mmol/L [facility] BUN 14 6 - 25 mg/dL [facility] Creatinine 0.71(L) 0.80 - 1.30 mg/dL [facility] Glucose 112 70 - 199 mg/dL [facility] Comment: Interpretive Data Fasting glucose >/= [...] 2022. Calcium 9.0 8.5 - 10.3 mg/dL [facility] Blood 11/29/2024 6:13 AM CDT 11/29/2024 6:22 AM CDT us Leanne Dockery MD LAB BLOOD ORDERABLES Final Re sult [facility] [address] [place] [address] * XR Chest 1 View (11/28/2024 10:11 [...] AM CDT) 11/28/2024 9:39 AM CDT Narrative [facility] - 11/28/2024 12:53 PM CDT Vent Rate: 51 bpm RR Interval: 1162 msec [place] Interval: 258 msec QRS Duration: 118 msec QT Interval: 442 msec QTC Interval: 419 msec P-R-T [place]: -76 - 2 - 21 degrees IMPRESSION: SINUS BRADYCARDIA WITH FIRST DEGREE AV BLOCK WITH OCCASIONAL SUPRAVENTRICULAR PREMATURE COMPLEXES SEPTAL MYOCARDIAL INFARCTION , OF INDETERMINATE AGE [40+ ms Q WAVE IN V1/V2] ABNORMAL ECG NO CHANGE FROM PREVIOUS TRACING NOTED Electronically Signed By: Murphy Gaitan MD Carlos Osborn MD ECG ORDERABLES Julee l Result [facility] * eGFR (11/28/2024 9:37 AM CDT) [...] MD LAB BLOOD ORDERABLES Final Re sult [facility] [address] [place] [address] * (ABNORMAL) CBC without differential (11/28/2024 9:37 AM CDT) WBC 20.83(H) 3.80 - 9.90 K/cumm Hgb 10.6(L) 13.0 - 17.5 g/dL [facility] Hct 32.7(L) 38.9 - 50.3 % [facility] Plt 298 150 - 400 K/cumm [facility] MPV 9.8 9.1 - 12.3 fL [facility] RBC 3.65(L) 4.30 - 5.80 M/cumm [facility] MCV 89.6 81.3 - 96.4 fL [facility] MCH 29.0 27.1 - 33.3 pg [facility] MCHC 32.4 32.3 - 35.7 g/dL [facility] RDW CV 14.1 11.1 - 14.9 % [facility] RDW SD 46.5 35.7 - 48.1 fL [facility] NRBC abs 0.00 0.00 - 0.01 K/cumm [facility] Blood 11/28/2024 9:37 AM CDT 11/28/2024 10:37 AM CDT Leanne Dockery MD LAB BLOOD ORDERABLES Final Re sult ANUSHA DIXON [address] [place] [address] * (ABNORMAL) Basic metabolic panel (11/28/2024 9:37 AM CDT) [facility] Sodium 131(L) 135 - 145 mmol/L Potassium, pl 3.8 3.3 - 4.9 mmol/L [facility] Chloride 100 97 - 110 mmol/L [facility] CO2 21(L) 22 - 32 mmol/L [facility] Anion gap 10 2 - 15 mmol/L [facility] BUN 16 6 - 25 mg/dL [facility] Creatinine 0.74(L) 0.80 - 1.30 mg/dL [facility] Glucose 104 70 - 199 mg/dL [facility] Comment: Interpretive Data Fasting glucose >/= [...] 2022. Calcium 8.9 8.5 - 10.3 mg/dL [facility] Blood 11/28/2024 9:37 AM CDT 11/28/2024 10:36 AM CDT Leanne Dockery MD LAB BLOOD ORDERABLES Final Re sult Performing Organization Address City/[facility]/ZIP Co de Phone Number ANUSHA DIXON [address] [place] [address] * Respiratory pathogen panel Nasopharyngeal (11/27/2024 3:27 PM CDT) Pathologist [facility] Influenza A RNA Not Detected Not Detected Influenza B RNA Not Detected Not Detected [facility] RSV RNA Not Detected Not Detected [facility] CH COVID-19 RNA Not Detected Not Detected [facility] CH Coronavirus 229E RNA Not Detected Not Detected [facility] CH Coronavirus HKU1 RNA Not Detected Not Detected [facility] Coronavirus NL63 RNA Not Detected Not Detected [facility] Coronavirus OC43 RNA Not Detected Not Detected [facility] Adenovirus DNA Not Detected Not Detected [facility] Metapneumovirus RNA Not Detected Not Detected [facility] Rhinovirus/Enterov irus RNA Not Detected Not Detected [facility] Parainfluenza 1 RNA Not Detected Not Detected [facility] Parainfluenza 2 RNA Not Detected Not Detected [facility] Parainfluenza 3 RNA Not Detected Not Detected [facility] Parainfluenza 4 RNA Not Detected Not Detected [facility] B. pertussis DNA Not Detected Not Detected [facility] B. parapertussis DNA Not Detected Not Detected [facility] C. pneumoniae DNA Not Detected Not Detected [facility] M. pneumoniae DNA Not Detected Not Detected [facility] Comment: Interpretive Data The Vizy FilmArray Respiratory Panel (RP2.1) assay is a [...] assay has FDA clearance for testing of PROPERTY INSPECTOR swabs. The performance characteristics of this assay have been determined by [facility]. Current interpretive data was last revised on 2020. Nasopharyngeal 11/27/2024 3: 27 PM CDT 11/27/2024 3:40 PM CDT Abbey TAVARES - 11/27/2024 4:42 PM CDT Is the Patient experiencing symptoms consistent with COVID?->Yes Surveillance testing for transplant patient?->No Rickie Chew MD LAB MICROBIOLOGY - GENERAL [facility] Final Result ANUSHA [address] [place] [address] * Blood culture Blood (11/27/2024 11:41 AM CDT) Report Final Report: No growth Comment:Testing performed by : [facility], [address] [facility], [place]., [address] Blood 11/27/2024 11:4 1 AM CDT 11/27/2024 [...] performance characteristics have been verified by the [facility]. For questions about this culture, contact the Microbiology Laboratory at [phone]. Interpretive data was last revised on 24. Leanne Dockery MD LAB MICROBIOLOGY - GENERAL OR DERABLES Final Result ANUSHA DIXON [address] [place] [address] * Blood culture Blood (11/27/2024 11:41 AM CDT) Report Final Report: No growth Comment:Testing performed by : [facility], [address] [place]., [address] Blood 11/27/2024 11:4 1 AM CDT 11/27/2024 1:49 PM CDT Abbey Sesay 12/01/2024 4:00 PM CDT Collection->Peripheral 1. Blood [...] performance characteristics have been verified by the [facility]. For questions about this culture, contact the Microbiology Laboratory at [phone]. Interpretive data was last revised on 24. us Leanne Dockery MD LAB MICROBIOLOGY - GENERAL OR DERABLES Final Result ANUSHA DIXON [address] [place] [address] * Sepsis Lactate w/ Reflex (11/27/2024 4:57 AM CDT) Pathologist [facility] Sepsis Lactate 0.7 0.7 - 2.0 mmol/L Blood 11/27/2024 4:57 AM CDT 11/27/2024 5:11 AM CDT us Riri Fish MD LAB BLOOD ORDERABL ES Final Result Performing Organization Address City/[facility]/ZIP Co de Phone Number ANUSHA ZACK [address] [place] [place] [address] * (ABNORMAL) Differential, auto (11/27/2024 4:57 AM CDT) Neutrophil abs 29.89(H) 1.50 - 6.50 K/cumm Imm gran abs 0.43(H) 0.00 - 0.10 K/cumm [facility] CH Lymphocyte abs 1.34 0.80 - 3.30 K/cumm [facility] Monocyte abs 1.75(H) 0.20 - 0.80 K/cumm [facility] Eosinophil abs 0.02 0.00 - 0.50 K/cumm [facility] Basophil abs 0.08 0.00 - 0.10 K/cumm [facility] Neutrophil pct 89.2 % [facility] Comment: Interpretive Data Percent cell count reference ranges are not reported, since discordance with absolute values may lead to misinterpretation of CBC data. Current Interpretive Data was last revised on 2017. Imm gran pct 1.3 % [facility] Comment: Interpretive Data Percent cell count reference ranges are not reported, since discordance with absolute values may lead to misinterpretation of CBC data. Current Interpretive Data was last revised on 2017. Lymphocyte pct 4.0 % [facility] Comment: Interpretive Data Percent cell count reference ranges are not reported, since discordance with absolute values may lead to misinterpretation of CBC data. Current Interpretive Data was last revised on 2017. Monocyte pct 5.2 % [facility] Comment: Interpretive Data Percent cell count reference ranges are not reported, since discordance with absolute values may lead to misinterpretation of CBC data. Current Interpretive Data was last revised on 2017. Eosinophil pct 0.1 % [facility] Comment: Interpretive Data Percent cell count reference ranges are not reported, since discordance with absolute values may lead to misinterpretation of CBC data. Current Interpretive Data was last revised on 2017. Basophil pct 0.2 % [facility] Comment: Interpretive Data Percent cell count reference ranges are not reported, since discordance with absolute values may lead to misinterpretation of CBC data. Current Interpretive Data was last revised on 2017. Blood 11/27/2024 4:57 AM CDT 11/27/2024 5:13 AM CDT us Riri Fish MD LAB BLOOD ORDERABL ES Final Result ANUSHA [address] [place] [address] * (ABNORMAL) CBC with auto differential (11/27/2024 4:57 AM CDT) WBC 33.51(H) 3.80 - 9.90 K/cumm Hgb 11.3(L) 13.0 - 17.5 g/dL [facility] Hct 33.8(L) 38.9 - 50.3 % [facility] Plt 337 150 - 400 K/cumm [facility] MPV 9.2 9.1 - 12.3 fL [facility] RBC 3.86(L) 4.30 - 5.80 M/cumm [facility] MCV 87.6 81.3 - 96.4 fL [facility] MCH 29.3 27.1 - 33.3 pg [facility] MCHC 33.4 32.3 - 35.7 g/dL [facility] RDW CV 14.1 11.1 - 14.9 % [facility] RDW SD 45.3 35.7 - 48.1 fL [facility] NRBC abs 0.00 0.00 - 0.01 K/cumm [facility] Morphologic Screen Results confirmed by manual morphology review. [facility] Blood 11/27/2024 4:57 AM CDT 11/27/2024 5:13 AM CDT Riri Fish MD LAB BLOOD ORDERABL ES Edited Result - Final [facility] [address] [place] [address] * Blood culture Blood (11/27/2024 4:57 AM CDT) Report Final Report: No growth Comment:Testing performed by : [facility], [address] [place]., [address] Blood 11/27/2024 4:57 AM CDT 11/27/2024 8:51 AM CDT Narrative [facility] - 12/01/2024 12:00 PM CDT From [...] performance characteristics have been verified by the [facility]. For questions about this culture, contact the Microbiology Laboratory at [phone]. Interpretive data was last revised on 24. Riri Fish MD LAB MICROBIOLOGY - GENERAL ORDERABLES Final Result ANUSHA DIXON [address] [place] [address] * Blood culture Blood (11/27/2024 4:57 AM CDT) Report Final Report: No growth Comment:Testing performed by : [facility], [address] [place]., [address] Blood 11/27/2024 4:57 AM CDT 11/27/2024 8:51 AM CDT Abbey Sesay 12/01/2024 12:00 PM CDT Collection->Peripheral 1. Blood [...] performance characteristics have been verified by the [facility]. For questions about this culture, contact the Microbiology Laboratory at [phone]. Interpretive data was last revised on 24. us Riri Fish MD LAB MICROBIOLOGY - GENERAL ORDERABLES Final Result ANUSHA [address] Department of Laboratories [place] [id number] * CT Chest Abdomen Pelvis WO Contrast [...] 114 70 - 199 mg/dL POC Performer [id number] ANUSHA DIXON Blood 11/26/2024 5:03 PM CDT 11/26/2024 5:03 PM CDT Riri Fish MD LAB POCT ORDERABLE S - DEVICE Final Result ANUSHA [address] [place] [address] * XR Chest 1 View (11/25/2024 4:43 [...] data was last reviewed 2021. Blood 11/25/2024 2:5 4 PM CDT 11/25/2024 3:13 PM CDT us Riri Fish MD LAB BLOOD ORDERABL ES Final Result ANUSHA [address] [place] [address] * (ABNORMAL) Differential, auto (11/25/2024 2:54 PM CDT) Neutrophil abs 7.85(H) 1.50 - 6.50 K/cumm Imm gran abs 0.03 0.00 - 0.10 K/cumm [facility] Lymphocyte abs 1.34 0.80 - 3.30 K/cumm [facility] Monocyte abs 0.70 0.20 - 0.80 K/cumm [facility] Eosinophil abs 0.23 0.00 - 0.50 K/cumm [facility] Basophil abs 0.02 0.00 - 0.10 K/cumm [facility] Neutrophil pct 77.1 % [facility] Comment: Interpretive Data Percent cell count reference ranges are not reported, since discordance with absolute values may lead to misinterpretation of CBC data. Current Interpretive Data was last revised on 2017. Imm gran pct 0.3 % [facility] Comment: Interpretive Data Percent cell count reference ranges are not reported, since discordance with absolute values may lead to misinterpretation of CBC data. Current Interpretive Data was last revised on 2017. Lymphocyte pct 13.2 % [facility] Comment: Interpretive Data Percent cell count reference ranges are not reported, since discordance with absolute values may lead to misinterpretation of CBC data. Current Interpretive Data was last revised on 2017. Monocyte pct 6.9 % [facility] Comment: Interpretive Data Percent cell count reference ranges are not reported, since discordance with absolute values may lead to misinterpretation of CBC data. Current Interpretive Data was last revised on 2017. Eosinophil pct 2.3 % [facility] Comment: Interpretive Data Percent cell count reference ranges are not reported, since discordance with absolute values may lead to misinterpretation of CBC data. Current Interpretive Data was last revised on 2017. Basophil pct 0.2 % [facility] Comment: Interpretive Data Percent cell count reference ranges are not reported, since discordance with absolute values may lead to misinterpretation of CBC data. Current Interpretive Data was last revised on 2017. Blood 11/25/2024 2:54 PM CDT 11/25/2024 3:13 PM CDT Riricindy Fish MD LAB BLOOD ORDERABL ES Final Result Performing Organization Address [facility] Co de Phone Number ANUSHA DIXON [address] [place] [place] [address] * (ABNORMAL) CBC with auto [...] ORDERABL ES Final Result Performing Organization Address City/[facility]/ZIP Co de Phone Number ANUSHA DIXON [address] [place] [address] * (ABNORMAL) Comprehensive metabolic panel (11/25/2024 2:54 PM CDT) Sodium 132(L) 135 - 145 mmol/L Potassium, pl 3.5 3.3 - 4.9 mmol/L [facility] Chloride 100 97 - 110 mmol/L [facility] CO2 21(L) 22 - 32 mmol/L [facility] CH Anion gap 11 2 - 15 mmol/L [facility] BUN 12 6 - 25 mg/dL [facility] Creatinine 0.91 0.80 - 1.30 mg/dL [facility] Glucose 107 70 - 199 mg/dL [facility] Comment: Interpretive Data Fasting glucose >/= 126 [...] Calcium 9.5 8.5 - 10.3 mg/dL [facility] Bilirubin, total 0.4 0.1 - 1.2 mg/dL [facility] Protein, pl 6.6 6.5 - 8.5 g/dL [facility] Albumin 3.7 3.5 - 5.0 g/dL [facility] Alk phos 114 40 - 130 Units/L [facility] ALT 24 7 - 55 Units/L [facility] CH AST 24 10 - 50 Units/L [facility] Blood 11/25/2024 2:54 PM CDT 11/25/2024 3:13 PM CDT us Riri Fish MD LAB BLOOD ORDERABL ES Final Result [facility] [address] [place] [address] * Infection Prevention Cori auris PCR, surveillance Axilla/Groin (11/25/2024 12:38 PM CDT) Cori auris DNA Not Detected Not Detected [facility] Comment: Interpretive Data Testing performed by [facility] using the Reilly gabe 6800 Cori auris assay. This assay detects DNA from Cori auris using Real-Time PCR. This assay is laboratory developed and is not cleared by the [place] Food and Drug Administration. The performance characteristics have been verified by the [facility]. Testing performed by: [facility], [address] [facility], [place]., [address] Axilla/Groin 11/25/2024 12:3 8 PM CDT 11/25/2024 3:32 PM CDT us Mary Fontaine MD LAB MICROBIOLOGY - GENER AL ORDERABLES Final Result Performing Organization Address [facility] [place] Number [place] [address] [address] [place] [address] [facility] * Urinalysis reflex to microscopic and culture [...] tendency for uric acid stone formation. Source: [facility] [employer] Current Interpretive Data was last revised on [...] 9:24 AM CDT 11/25/2024 9:33 AM CDT us Riri Fish MD LAB MICROBIOLOGY - GENERAL ORDERABLES Final Result Performing Organization Address City/[facility]/[place] [address] [address]aba Department [place] [address] * eGFR (11/21/2024 5:49 AM CDT) eGFR [...] MD LAB BLOOD ORDERABL ES Final Result [facility] [address] [address] [place] [address] * Differential, auto (11/21/2024 5:49 AM CDT) Neutrophil abs 5.36 1.50 - 6.50 K/cumm Imm gran abs 0.04 0.00 - 0.10 K/cumm [facility] Lymphocyte abs 1.81 0.80 - 3.30 K/cumm [facility] Monocyte abs 0.80 0.20 - 0.80 K/cumm [facility] Eosinophil abs 0.37 0.00 - 0.50 K/cumm [facility] Basophil abs 0.06 0.00 - 0.10 K/cumm [facility] Neutrophil pct 63.5 % [facility] Comment: Interpretive Data Percent cell count reference ranges are not reported, since discordance with absolute values may lead to misinterpretation of CBC data. Current Interpretive Data was last revised on 2017. Imm gran pct 0.5 % [facility] Comment: Interpretive Data Percent cell count reference ranges are not reported, since discordance with absolute values may lead to misinterpretation of CBC data. Current Interpretive Data was last revised on 2017. Lymphocyte pct 21.4 % [facility] Comment: Interpretive Data Percent cell count reference ranges are not reported, since discordance with absolute values may lead to misinterpretation of CBC data. Current Interpretive Data was last revised on 2017. Monocyte pct 9.5 % [facility] Comment: Interpretive Data Percent cell count reference ranges are not reported, since discordance with absolute values may lead to misinterpretation of CBC data. Current Interpretive Data was last revised on 2017. Eosinophil pct 4.4 % [facility] Comment: Interpretive Data Percent cell count reference ranges are not reported, since discordance with absolute values may lead to misinterpretation of CBC data. Current Interpretive Data was last revised on 2017. Basophil pct 0.7 % [facility] Comment: Interpretive Data Percent cell count reference ranges are not reported, since discordance with absolute values may lead to misinterpretation of CBC data. Current Interpretive Data was last revised on 2017. Blood 11/21/2024 5:49 AM CDT 11/21/2024 6:20 AM CDT Riri Fish MD LAB BLOOD ORDERABL ES Final Result [facility] [address] [address] [place] [address] * (ABNORMAL) CBC with auto differential (11/21/2024 5:49 AM CDT) WBC 8.44 3.80 - 9.90 K/cumm Hgb 12.5(L) 13.0 - 17.5 g/dL [facility] Hct 38.5(L) 38.9 - 50.3 % [facility] Plt 337 150 - 400 K/cumm [facility] MPV 9.5 9.1 - 12.3 fL [facility] RBC 4.28(L) 4.30 - 5.80 M/cumm [facility] MCV 90.0 81.3 - 96.4 fL [facility] MCH 29.2 27.1 - 33.3 pg [facility] MCHC 32.5 32.3 - 35.7 g/dL [facility] RDW CV 13.8 11.1 - 14.9 % [facility] RDW SD 45.7 35.7 - 48.1 fL [facility] NRBC abs 0.00 0.00 - 0.01 K/cumm [facility] Blood 11/21/2024 5:49 AM CDT 11/21/2024 6:20 AM CDT Riri Fish MD LAB BLOOD ORDERABL ES Final Result [facility] [address] [address] [place] [address] * Comprehensive metabolic panel (11/21/2024 5:49 AM CDT) Sodium 136 135 - 145 mmol/L Potassium, pl 4.2 3.3 - 4.9 mmol/L [facility] Chloride 102 97 - 110 mmol/L [facility] CO2 22 22 - 32 mmol/L [facility] Anion gap 12 2 - 15 mmol/L [facility] BUN 17 6 - 25 mg/dL [facility] Creatinine 0.86 0.80 - 1.30 mg/dL [facility] Glucose 96 70 - 199 mg/dL [facility] Comment: Interpretive Data Fasting glucose >/= [...] ORDERABL ES Final Result Performing Organization Address [facility]/ZIP Co de Phone Number ANUSHA DIXON [address] [address] Department [email or web address] [address] * POCT glucose (11/17/2024 4:38 PM CDT) Glucose, POC 128 70 - 199 mg/dL POC Performer [id number] CERNER CH Blood 11/17/2024 4:38 PM CDT 11/17/2024 4:38 PM CDT us Carlos Osborn MD LAB POCT ORDERABLES - DEVICE Final Result Performing Organization Address City/[facility]/ZIP Co de Phone Number ANUSHA DIXON [address] [address] [place] [address] * eGFR (11/17/2024 4:24 AM CDT) eGFR [...] CDT 11/17/2024 5:30 AM CDT Rosa Agrawal PROPERTY INSPECTOR LAB BLOOD ORDERABLE S Final Result [facility] [address] [address] [place] [address] * (ABNORMAL) Basic metabolic panel (11/17/2024 4:24 AM CDT) Sodium 133(L) 135 - 145 mmol/L Potassium, pl 4.2 3.3 - 4.9 mmol/L [facility] Chloride 98 97 - 110 mmol/L [facility] CO2 21(L) 22 - 32 mmol/L [facility] Anion gap 14 2 - 15 mmol/L [facility] BUN 23 6 - 25 mg/dL [facility] Creatinine 0.93 0.80 - 1.30 mg/dL [facility] Glucose 115 70 - 199 mg/dL [facility] Comment: Interpretive Data Fasting glucose >/= [...] 2022. Calcium 9.8 8.5 - 10.3 mg/dL [facility] Blood 11/17/2024 4:24 AM CDT 11/17/2024 5:30 AM CDT us Rosa Agrawal PROPERTY INSPECTOR LAB BLOOD ORDERABLE S Final Result [facility] DIXON [address] [place] [address] * EEG (11/16/2024 10:41 AM CDT) Anatomical [...] wakefulness and drowsiness. Clinical correlation is recommended. Ricky Hector II, MD NEUROLOGY ORDERABLES Final [...] Report: No growth Comment:Testing performed by : [facility], [address] [facility], [place]., [address] Blood 11/15/2024 5:23 PM CDT 11/15/2024 8:43 PM CDT [facility] - 11/20/2024 7:00 AM CDT From a [...] performance characteristics have been verified by the [facility]. For questions about this culture, contact the Microbiology Laboratory at [phone]. Interpretive data was last revised on 24. Gris Cooper NP LAB MICROBIOLOGY - GENERAL O RDERABLES Final Result ANUSHA [address] [address] [place] [address] * Blood culture Blood (11/15/2024 5:14 PM CDT) Report Final Report: No growth Comment:Testing performed by : [facility], [address] [place]., [address] Blood 11/15/2024 5:14 PM CDT 11/15/2024 8:43 [...] performance characteristics have been verified by the [facility]. For questions about this culture, contact the Microbiology Laboratory at [phone]. Interpretive data was last revised on 24. us Gris Cooper NP LAB MICROBIOLOGY - GENERAL O RDERABLES Final Result AN[facility] DIXON [address] [address] [place] [address] * CTA/CTP Rapid Stroke (C) (11/15/2024 7:28 [...] separate workstation for processing by RAPID software (WSO2) to produce automated calculations of the estimated cerebral blood flow and Tmax. Contrast information: 120 mL Optiray-350 COMPARISON: 10/25/2024 and a CAT scan without contrast earlier today. FINDINGS: HEAD CT FINDINGS: Source images demonstrate stable involutional changes with mild prominence of the ventricles and sulci. Normal vascular enhancement is seen within the deep venous sinuses and north fork of [place]. 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 Contrast information: 120 mL Optiray-350 COMPARISON: 10/25/2024 and a CAT scan without contrast earlier today. FINDINGS: HEAD CT FINDINGS: Source images demonstrate stable involutional changes with mild prominence of the ventricles and sulci. Normal vascular enhancement is seen within the deep venous sinuses and north fork of [place]. 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 Electronically signed by: Yordan Dai M.D. us Riri Fish MD IMG CT PROCEDURES Final [...] patient has a CAT scan from 10/25/2024. [employer] radiograph demonstrates no acute findings. Transaxial images [...] patient has a CAT scan from 10/25/2024. [employer] Teacher radiograph demonstrates no acute findings. Transaxial images [...] CHANGES Electronically signed by: Yordan Dai M.D. us Riri Fish MD IMG CT PROCEDURES Final Result * POCT glucose (11/15/2024 7:10 AM CDT) Glucose, POC 121 70 - 199 mg/dL POC Performer [id number] ANUSHA DIXON Blood 11/15/2024 7:10 AM CDT 11/15/2024 7:10 AM CDT us Riri Fish MD LAB POCT ORDERABLE S - DEVICE Final Result [facility] [address] [address] Department [place] [address] * (ABNORMAL) Urinalysis reflex to microscopic and culture Urine (11/15/2024 6:58 AM CDT) Color, ur Rosemary Yellow Clarity, ur Turbid(A) Clear [facility] CH Specific gravity, ur 1.018 1.003 - 1.030 CERNER CH pH, urine 5.5 C[facility] CH Comment: Interpretive Data U rine pH is affected by diet, medications, systemic acid-base disturbances, and renal tubular function. pH may affect urinary stone formation. For example, urine pH below 6.0 may help reduce the tendency for calcium phosphate stones and pH greater than 6.0 may reduce the tendency for uric acid stone formation. Source: [facility] Current Interpretive Data was last revised on [...] 8:15 AM CDT Riri Fish MD LAB MICROBIOLOGY - GENERAL ORDERABLES Final Result [facility] [address] [address] [place] [address] * (ABNORMAL) Urinalysis, microscopic only (11/15/2024 6:58 AM CDT) WBC, ur >50(A) 0 - 5 /HPF RBC, ur >50(A) 0 - 2 /HPF [facility] CH Epithelial cells, squamous, ur 1-5 0 - 5 /HPF C[facility] CH Bacteria, ur 4+(A) CERN[facility] CH Mucous, ur Present(A) CERNER CH Hyaline casts, ur >50(A) 0 - 10 /LPF C[facility] CH Culture Reflex Comment Reflex to urine culture will be performed. CERNER Urine 11/15/2024 6:58 AM CDT 11/15/2024 8:15 AM CDT us Riri Fish MD LAB URINE ORDERABL ES Final Result Performing Organization Address [facility]/ZIP Co de Phone Number ANUSHA [address] Department [place] [address] * (ABNORMAL) Urine culture Urine (11/15/2024 6:58 AM CDT) Report Final Report: Greater than or equal to 100,000 colonies/mL of Klebsiella pneumoniae (.) Comment:Testing performed by : [facility], [address] [place]., [address] Organism KLEBSIELLA PNEUMONIAE [facility] Urine 11/15/2024 6:58 AM CDT 11/15/2024 11:33 AM CDT Narrative ANUSHA - 11/17/2024 12:28 PM CDT Urine culture reflexed based upon urinalysis results. Testing performed by [facility] ([phone]) Organism Antibiotic Method Susceptibility Klebsiella pneumoniae Ampicillin [...] - GENERAL ORDERABLES Final Result ANUSHA DIXON [address] [address] [place] [address] * POCT glucose (11/15/2024 6:33 AM CDT) Glucose, POC 137 70 - 199 mg/dL POC Performer [id number] ANUSHA Blood 11/15/2024 6:33 AM CDT 11/15/2024 6:33 AM CDT us Riri Fish MD LAB POCT ORDERABLE S - DEVICE Final Result ANUS[facility] DIXON [address] [address] [place] [address] * XR Chest 1 View (2024 1:16 [...] disease. Electronically signed by: Solis Stahl M.D. us [...] MD LAB BLOOD ORDERABL ES Final Result [facility] [address] [address] [place] [address] * (ABNORMAL) Differential, auto (2024 10:22 AM CDT) Neutrophil abs 7.07(H) 1.50 - 6.50 K/cumm Imm gran abs 0.03 0.00 - 0.10 K/cumm [facility] Lymphocyte abs 1.10 0.80 - 3.30 K/cumm [facility] Monocyte abs 0.80 0.20 - 0.80 K/cumm [facility] Eosinophil abs 0.13 0.00 - 0.50 K/cumm [facility] Basophil abs 0.05 0.00 - 0.10 K/cumm [facility] Neutrophil pct 77.1 % ANUSHA Comment: Interpretive Data Percent cell [...] revised on 2017. Lymphocyte pct 12.0 % [facility] Comment: Interpretive Data Percent cell count reference ranges are not reported, since discordance with absolute values may lead to misinterpretation of CBC data. Current Interpretive Data was last revised on 2017. Monocyte pct 8.7 % [facility] Comment: Interpretive Data Percent cell count reference ranges are not reported, since discordance with absolute values may lead to misinterpretation of CBC data. Current Interpretive Data was last revised on 2017. Eosinophil pct 1.4 % [facility] Comment: Interpretive Data Percent cell count reference ranges are not reported, since discordance with absolute values may lead to misinterpretation of CBC data. Current Interpretive Data was last revised on 2017. Basophil pct 0.5 % [facility] Comment: Interpretive Data Percent cell count reference ranges are not reported, since discordance with absolute values may lead to misinterpretation of CBC data. Current Interpretive Data was last revised on 2017. Blood 2024 10:2 2 AM CDT 2024 10:32 AM CDT us Riri Fish MD LAB BLOOD ORDERABL ES Final Result [facility] [address] [address] [place] [address] * (ABNORMAL) CBC with auto differential (2024 10:22 AM CDT) WBC 9.18 3.80 - 9.90 K/cumm Hgb 12.0(L) 13.0 - 17.5 g/dL [facility] Hct 36.3(L) 38.9 - 50.3 % [facility] Plt 370 150 - 400 K/cumm [facility] MPV 9.3 9.1 - 12.3 fL [facility] RBC 4.08(L) 4.30 - 5.80 M/cumm [facility] MCV 89.0 81.3 - 96.4 fL [facility] MCH 29.4 27.1 - 33.3 pg [facility] MCHC 33.1 32.3 - 35.7 g/dL CERNER CH RDW CV 13.8 11.1 - 14.9 % CERNER CH RDW SD 45.3 35.7 - 48.1 fL CERNER CH NRBC abs 0.00 0.00 - 0.01 K/cumm CERNER CH Blood 2024 10:2 2 AM CDT 2024 10:32 AM CDT Riri Fish MD LAB [place]LOOD [place] [address] [address] [place] [address] * (ABNORMAL) Comprehensive metabolic panel (2024 10:22 [...] LAB BLOOD ORDERABL ES Final Result AN[facility] DIXON [address] [address] [place] [address] * XR Knee Left 1 or 2 [...] CDT) 11/08/2024 10:5 7 AM CDT Narrative [facility] - 11/08/2024 12:39 PM CDT Vent Rate: 60 bpm RR Interval: 989 msec [place] Interval: 269 msec QRS Duration: 107 msec QT Interval: 418 msec QTC Interval: 419 msec P-R-T [place]: 69 - -9 - -3 degrees IMPRESSION: SINUS RHYTHM WITH FIRST DEGREE AV BLOCK WITH OCCASIONAL VENTRICULAR PREMATURE COMPLEXES ABNORMAL ECG Electronically Signed By: Gerard Bauer MD us Riri Fish MD ECG ORDERABLES Fi nal Result [facility] * eGFR (11/07/2024 5:31 AM CDT) eGFR [...] LAB BLOOD ORDERABL ES Final Result AN[facility] DIXON [address] [address] [place] [address] * Differential, auto (11/07/2024 5:31 AM CDT) Neutrophil abs 4.31 1.50 - 6.50 K/cumm Imm gran abs 0.02 0.00 - 0.10 K/cumm [facility] Lymphocyte abs 1.62 0.80 - 3.30 K/cumm [facility] Monocyte abs 0.62 0.20 - 0.80 K/cumm [facility] Eosinophil abs 0.31 0.00 - 0.50 K/cumm [facility] Basophil abs 0.07 0.00 - 0.10 K/cumm [facility] Neutrophil pct 62.0 % [facility] Comment: Interpretive Data Percent cell count reference ranges are not reported, since discordance with absolute values may lead to misinterpretation of CBC data. Current Interpretive Data was last revised on 2017. Imm gran pct 0.3 % [facility] Comment: Interpretive Data Percent cell count reference ranges are not reported, since discordance with absolute values may lead to misinterpretation of CBC data. Current Interpretive Data was last revised on 2017. Lymphocyte pct 23.3 % [facility] Comment: Interpretive Data Percent cell count reference ranges are not reported, since discordance with absolute values may lead to misinterpretation of CBC data. Current Interpretive Data was last revised on 2017. Monocyte pct 8.9 % [facility] Comment: Interpretive Data Percent cell count reference ranges are not reported, since discordance with absolute values may lead to misinterpretation of CBC data. Current Interpretive Data was last revised on 2017. Eosinophil pct 4.5 % [facility] Comment: Interpretive Data Percent cell count reference ranges are not reported, since discordance with absolute values may lead to misinterpretation of CBC data. Current Interpretive Data was last revised on 2017. Basophil pct 1.0 % [facility] Comment: Interpretive Data Percent cell count reference ranges are not reported, since discordance with absolute values may lead to misinterpretation of CBC data. Current Interpretive Data was last revised on 2017. Blood 11/07/2024 5:31 AM CDT 11/07/2024 5:47 AM CDT us Riri Fish MD LAB BLOOD ORDERABL ES Final Result [facility] [address] [address] [place] [address] * (ABNORMAL) CBC with auto differential (11/07/2024 5:31 AM CDT) Pathologist [facility] WBC 6.95 3.80 - 9.90 K/cumm Hgb 11.3(L) 13.0 - 17.5 g/dL CERNER CH Hct 35.2(L) 38.9 - 50.3 % CERNER CH Plt 332 150 - 400 K/cumm CERNER CH MPV 9.2 9.1 - 12.3 fL CERNER RBC 3.82(L) 4.30 - 5.80 M/cumm CERNER CH MCV 92.1 81.3 - 96.4 fL CERNER CH MCH 29.6 27.1 - 33.3 pg CERNER MCHC 32.1(L) 32.3 - 35.7 g/dL CERNER CH RDW CV 13.7 11.1 - 14.9 % CERNER CH RDW SD 46.8 35.7 - 48.1 fL CERNER CH NRBC abs 0.00 0.00 - 0.01 K/cumm [facility] Blood 11/07/2024 5:31 AM CDT 11/07/2024 5:47 AM CDT Riri Fish MD LAB BLOOD ORDERABL ES Final Result AN[facility] [address] [address] [place] [address] * (ABNORMAL) Comprehensive metabolic panel (11/07/2024 5:31 AM CDT) Pathologist [facility] Sodium 136 135 - 145 mmol/L Potassium, pl 4.3 3.3 - 4.9 mmol/L [facility] Chloride 102 97 - 110 mmol/L [facility] CO2 22 22 - 32 mmol/L [facility] Anion gap 12 2 - 15 mmol/L [facility] BUN 14 6 - 25 mg/dL [facility] Creatinine 0.86 0.80 - 1.30 mg/dL [facility] Glucose 101 70 - 199 mg/dL [facility] Comment: Interpretive Data Fasting glucose >/= [...] MD LAB BLOOD ORDERABL ES Final Result [facility] [address] [address] Department of Laboratories [place], [place] [id number] * Urinalysis reflex to microscopic and culture [...] tendency for uric acid stone formation. Source: [facility] [employer] Current Interpretive Data was last revised on [...] MICROBIOLOGY - GENERAL ORDERABLES Final Result ANUSHA [address] [address] [place] [address] * XR Kub (10/31/2024 11:26 AM CDT) [...] MD LAB BLOOD ORDERABL ES Final Result [facility] [address] [address] [place] [address] * (ABNORMAL) Differential, auto (10/31/2024 5:02 AM CDT) Neutrophil abs 5.72 1.50 - 6.50 K/cumm Imm gran abs 0.02 0.00 - 0.10 K/cumm [facility] Lymphocyte abs 1.47 0.80 - 3.30 K/cumm [facility] Monocyte abs 1.01(H) 0.20 - 0.80 K/cumm [facility] Eosinophil abs 0.44 0.00 - 0.50 K/cumm [facility] Basophil abs 0.07 0.00 - 0.10 K/cumm [facility] Neutrophil pct 65.6 % [facility] Comment: Interpretive Data Percent cell count reference ranges are not reported, since discordance with absolute values may lead to misinterpretation of CBC data. Current Interpretive Data was last revised on 2017. Imm gran pct 0.2 % [facility] Comment: Interpretive Data Percent cell count reference ranges are not reported, since discordance with absolute values may lead to misinterpretation of CBC data. Current Interpretive Data was last revised on 2017. Lymphocyte pct 16.8 % C[facility] Comment: Interpretive Data Percent cell count reference ranges are not reported, since discordance with absolute values may lead to misinterpretation of CBC data. Current Interpretive Data was last revised on 2017. Monocyte pct 11.6 % [facility] Comment: Interpretive Data Percent cell count reference ranges are not reported, since discordance with absolute values may lead to misinterpretation of CBC data. Current Interpretive Data was last revised on 2017. Eosinophil pct 5.0 % C[facility]ER Comment: Interpretive Data Percent cell count reference ranges are not reported, since discordance with absolute values may lead to misinterpretation of CBC data. Current Interpretive Data was last revised on 2017. Basophil pct 0.8 % [facility] Comment: Interpretive Data Percent cell count reference ranges are not reported, since discordance with absolute values may lead to misinterpretation of CBC data. Current Interpretive Data was last revised on 2017. Blood 10/31/2024 5:02 AM CDT 10/31/2024 5:34 AM CDT us Riri Fish MD LAB BLOOD ORDERABL ES Final Result [facility] [address] [address] [place] [address] * (ABNORMAL) CBC with auto differential (10/31/2024 5:02 AM CDT) WBC 8.73 3.80 - 9.90 K/cumm Hgb 11.4(L) 13.0 - 17.5 g/dL [facility] Hct 35.4(L) 38.9 - 50.3 % [facility] Plt 280 150 - 400 K/cumm [facility] MPV 10.0 9.1 - 12.3 fL [facility] RBC 3.85(L) 4.30 - 5.80 M/cumm CERNER MCV 91.9 81.3 - 96.4 fL CERNER CH MCH 29.6 27.1 - 33.3 pg CERNER CH MCHC 32.2(L) 32.3 - 35.7 g/dL C[facility]ER CH RDW CV 14.3 11.1 - 14.9 % CERNER CH RDW SD 48.3(H) 35.7 - 48.1 fL CERNER NRBC abs 0.00 0.00 - 0.01 K/cumm C[facility]ER Blood 10/31/2024 5:02 AM CDT 10/31/2024 5:34 AM CDT us Riri Fish MD LAB BLOOD ORDERABL ES Final Result [facility] [address] [address] [place] [address] * (ABNORMAL) Comprehensive metabolic panel (10/31/2024 5:02 AM CDT) Sodium 137 135 - 145 mmol/L Potassium, pl 3.9 3.3 - 4.9 mmol/L [facility] Chloride 102 97 - 110 mmol/L [facility] CH CO2 23 22 - 32 mmol/L [facility] Anion gap 12 2 - 15 mmol/L [facility] BUN 10 6 - 25 mg/dL [facility] Creatinine 0.78(L) 0.80 - 1.30 mg/dL [facility] Glucose 100 70 - 199 mg/dL [facility] Comment: Interpretive Data Fasting glucose >/= [...] ORDERABL ES Final Result Performing Organization Address [facility]/ZIP Co de Phone Number ANUSHA DIXON [address] Department [email or web address] [address] * POCT glucose (10/30/2024 5:19 PM CDT) Glucose, POC 128 70 - 199 mg/dL POC Performer [phone] [facility] Blood 10/30/2024 5:19 PM CDT 10/30/2024 5:19 PM CDT us Riri Fish MD LAB POCT ORDERABLE S - DEVICE Final Result Performing Organization Address [facility] Co de Phone Number GRADYZAHEER DIXON [address] Department [email or web address] [address] * eGFR (10/29/2024 5:54 AM CDT) eGFR [...] LAB BLOOD ORDERABL ES Final Result ANUSHA [address] [place] [address] * (ABNORMAL) Differential, auto (10/29/2024 5:54 AM CDT) Neutrophil abs 6.47 1.50 - 6.50 K/cumm Imm gran abs 0.04 0.00 - 0.10 K/cumm [facility] Lymphocyte abs 1.25 0.80 - 3.30 K/cumm [facility] Monocyte abs 0.97(H) 0.20 - 0.80 K/cumm [facility] Eosinophil abs 0.63(H) 0.00 - 0.50 K/cumm [facility] Basophil abs 0.06 0.00 - 0.10 K/cumm [facility] Neutrophil pct 68.7 % [facility] Comment: Interpretive Data Percent cell count reference ranges are not reported, since discordance with absolute values may lead to misinterpretation of CBC data. Current Interpretive Data was last revised on 2017. Imm gran pct 0.4 % ANUSHA Comment: Interpretive Data Percent cell count reference ranges are not reported, since discordance with absolute values may lead to misinterpretation of CBC data. Current Interpretive Data was last revised on 2017. Lymphocyte pct 13.3 % ANUSHA Comment: Interpretive Data Percent cell count reference ranges are not reported, since discordance with absolute values may lead to misinterpretation of CBC data. Current Interpretive Data was last revised on 2017. Monocyte pct 10.3 % [facility] Comment: Interpretive Data Percent cell count reference ranges are not reported, since discordance with absolute values may lead to misinterpretation of CBC data. Current Interpretive Data was last revised on 2017. Eosinophil pct 6.7 % [facility] Comment: Interpretive Data Percent cell count reference ranges are not reported, since discordance with absolute values may lead to misinterpretation of CBC data. Current Interpretive Data was last revised on 2017. Basophil pct 0.6 % [facility] Comment: Interpretive Data Percent cell count reference ranges are not reported, since discordance with absolute values may lead to misinterpretation of CBC data. Current Interpretive Data was last revised on 2017. Blood 10/29/2024 5:54 AM CDT 10/29/2024 6:18 AM CDT us Riri Fish MD LAB BLOOD ORDERABL ES Final Result [facility] [address] [place] [address] * (ABNORMAL) CBC with auto differential (10/29/2024 5:54 AM CDT) WBC 9.42 3.80 - 9.90 K/cumm Hgb 11.6(L) 13.0 - 17.5 g/dL [facility] Hct 36.0(L) 38.9 - 50.3 % [facility] Plt 244 150 - 400 K/cumm [facility] MPV 10.1 9.1 - 12.3 fL [facility] RBC 3.91(L) 4.30 - 5.80 M/cumm [facility] MCV 92.1 81.3 - 96.4 fL [facility] MCH 29.7 27.1 - 33.3 pg [facility] MCHC 32.2(L) 32.3 - 35.7 g/dL [facility] RDW CV 14.1 11.1 - 14.9 % [facility] RDW SD 47.7 35.7 - 48.1 fL [facility] NRBC abs 0.00 0.00 - 0.01 K/cumm [facility] Blood 10/29/2024 5:54 AM CDT 10/29/2024 6:18 AM CDT us Riri Fish MD LAB BLOOD ORDERABL ES Final Result [facility] [address] [place] [address] * (ABNORMAL) Comprehensive metabolic panel (10/29/2024 5:54 [...] ORDERABL ES Final Result Performing Organization Address [facility] Co de Phone Number ANUSHA DIXON [address] [address] Department [email or web address] [place] [address] * (ABNORMAL) CBC without differential (10/28/2024 11:22 AM CDT) Pathologist [facility] WBC 9.49 3.80 - 9.90 K/cumm Hgb 11.3(L) 13.0 - 17.5 g/dL [facility] Hct 36.0(L) 38.9 - 50.3 % [facility] Plt 223 150 - 400 K/cumm [facility] MPV 9.9 9.1 - 12.3 fL [facility] RBC 3.83(L) 4.30 - 5.80 M/cumm [facility] MCV 94.0 81.3 - 96.4 fL [facility] MCH 29.5 27.1 - 33.3 pg [facility] MCHC 31.4(L) 32.3 - 35.7 g/dL [facility] RDW CV 14.0 11.1 - 14.9 % [facility] RDW SD 48.2(H) 35.7 - 48.1 fL [facility] NRBC abs 0.00 0.00 - 0.01 K/cumm [facility] Blood 10/28/2024 11:2 2 AM CDT 10/28/2024 11:33 AM CDT Cruz Chew MD LAB BLOOD ORDERABLES Final Resu lt ANUSHA DIXON [address] [place] [address] * XR Knee Right 1 or 2 [...] 68, VTE cut-off 680 ng/ml FEU. References; Schouteverardo HT et al. Brit Med J. 2013;346:f2492. Behzad et al. Annals Int Med. 2015;163:701-11. Current interpretive data was last revised on 2019. Blood 10/28/2024 3:35 AM CDT 10/28/2024 5:20 AM CDT Gris Cooper PROPERTY INSPECTOR LAB BLOOD ORDERABLES Final R esult Performing Organization Address City/[facility]/ZIP Co de Phone Number ANUSHA DIXON [address] [facility] [place] [address] * (ABNORMAL) Uric acid (10/28/2024 3:35 AM CDT) Uric acid 2.9(L) 3.0 - 8.0 mg/dL Blood 10/28/2024 3:35 AM CDT 10/28/2024 5:19 AM CDT Gris Cooper PROPERTY INSPECTOR LAB BLOOD ORDERABLES Final R esult Performing Organization Address [facility] de Phone Number ANUSHA [address] [place] [address] * (ABNORMAL) Urinalysis reflex to microscopic and [...] tendency for uric acid stone formation. Source: [facility] [employer] Current Interpretive Data was last revised on [...] Cruz Chew MD LAB MICROBIOLOGY - GENERAL ORDE RABLES Final Result Performing Organization Address [facility] Co de Phone Number ANUSHA DIXON [address] Department Laboratories [place], [place] [phone] * (ABNORMAL) Urinalysis, microscopic only (10/27/2024 10:42 AM CDT) WBC, ur 0-5 0 - 5 /HPF RBC, ur 21-50(A) 0 - 2 /HPF [facility] Bacteria, ur Trace(A) [facility] Hyaline casts, ur 1-5 0 - 10 /LPF [facility] Culture Reflex Comment Reflex conditions for urine culture (WBC >10) not met. [facility] Urine 10/27/2024 10:4 2 AM CDT 10/27/2024 10:42 AM CDT us Cruz Chew MD LAB URINE ORDERABLES Final Resu lt Performing Organization Address [facility] Co de Phone Number ANUSHA DIXON [address] Department Laboratories [place], [place] [id number] * eGFR (10/26/2024 4:44 AM CDT) eGFR [...] Inclusion of Race in Diagnosing Kidney Disease, NABORSN 2020). The CKD-EPI equation should not be used for patients with unstable renal function and has not been validated in children and those over 70. Current interpretive data was last reviewed 2021. Blood 10/26/2024 4:44 AM CDT 10/26/2024 5:46 AM CDT us Marianna Robin NP LAB BLOOD ORDERABLES Final R esult [facility] [address] [place] [address] * (ABNORMAL) Differential, auto (10/26/2024 4:44 AM CDT) Neutrophil abs 10.53(H) 1.50 - 6.50 K/cumm Imm gran abs 0.06 0.00 - 0.10 K/cumm [facility] Lymphocyte abs 1.42 0.80 - 3.30 K/cumm [facility] Monocyte abs 1.14(H) 0.20 - 0.80 K/cumm [facility] Eosinophil abs 0.10 0.00 - 0.50 K/cumm [facility] Basophil abs 0.06 0.00 - 0.10 K/cumm [facility] Neutrophil pct 78.9 % [facility] Comment: Interpretive Data Percent cell count reference ranges are not reported, since discordance with absolute values may lead to misinterpretation of CBC data. Current Interpretive Data was last revised on 2017. Imm gran pct 0.5 % [facility] Comment: Interpretive Data Percent cell count reference ranges are not reported, since discordance with absolute values may lead to misinterpretation of CBC data. Current Interpretive Data was last revised on 2017. Lymphocyte pct 10.7 % [facility] Comment: Interpretive Data Percent cell count reference ranges are not reported, since discordance with absolute values may lead to misinterpretation of CBC data. Current Interpretive Data was last revised on 2017. Monocyte pct 8.6 % [facility] Comment: Interpretive Data Percent cell count reference ranges are not reported, since discordance with absolute values may lead to misinterpretation of CBC data. Current Interpretive Data was last revised on 2017. Eosinophil pct 0.8 % [facility] Comment: Interpretive Data Percent cell count reference ranges are not reported, since discordance with absolute values may lead to misinterpretation of CBC data. Current Interpretive Data was last revised on 2017. Basophil pct 0.5 % [facility] Comment: Interpretive Data Percent cell count reference ranges are not reported, since discordance with absolute values may lead to misinterpretation of CBC data. Current Interpretive Data was last revised on 2017. Blood 10/26/2024 4:44 AM CDT 10/26/2024 5:46 AM CDT Marianna Robin NP LAB BLOOD ORDERABLES Final R esult [facility] [address] [address] Department of Laboratories [place] [phone] * (ABNORMAL) CBC with auto differential (10/26/2024 4:44 AM CDT) WBC 13.31(H) 3.80 - 9.90 K/cumm Hgb 12.2(L) 13.0 - 17.5 g/dL [facility] Hct 37.4(L) 38.9 - 50.3 % [facility] Plt 263 150 - 400 K/cumm [facility] MPV 10.3 9.1 - 12.3 fL [facility] RBC 4.07(L) 4.30 - 5.80 M/cumm [facility] MCV 91.9 81.3 - 96.4 fL [facility] MCH 30.0 27.1 - 33.3 pg [facility] MCHC 32.6 32.3 - 35.7 g/dL [facility] RDW CV 14.3 11.1 - 14.9 % [facility] RDW SD 48.5(H) 35.7 - 48.1 fL [facility] NRBC abs 0.00 0.00 - 0.01 K/cumm [facility] Blood 10/26/2024 4:44 AM CDT 10/26/2024 5:46 AM CDT Marianna Bowiesushil MAURICE LAB BLOOD ORDERABLES Final R esult Performing Organization Address City/[facility] Co de Phone Number ANUSHA DIXON [address] [facility] [email or web address] [place] [address] * (ABNORMAL) Hemoglobin A1c (10/26/2024 4:44 AM CDT) Hgb A1C 6.1(H) 4.0 - 5.6 % Estimated Average Glucose 128 mg/dL ANUSHA DIXON Comment: The ADA recommends reporting an estimated Average Glucose (eAG) with all Hemoglobin A1c results using the equation derived from a study of 507 normal and diabetic adults. Minority populations were underrepresented and children were not included. (Diabetes Care 31:5739-2862, 2008). The eAG is not equivalent to a fasting glucose. Blood 10/26/2024 4:44 AM CDT 10/26/2024 5:46 AM CDT Rianablayne Lobito LAB BLOOD ORDERABLES Final R esult Performing Organization Address City/[facility] Co de Phone Number ANUSHA DIXON [address] [email or web address] [address] * Lipid panel (10/26/2024 4:44 AM CDT) [...] on 2018. HDL 62 >=40 mg/dL ANUSHA Comment: Interpretive Data Ages < or = [...] 2018. LDL, calculated 58 <=129 mg/dL ANUSHA Comment: Interpretive Data Ages < or = [...] NCEP Expert Panel. Circulation 2004;110:227 3. Weston Gutiérrez al. OBDULIA Cardiol. 2020 September 29;5(5):540-548. doi: 10.1001/[email or web address].2020.0013 Current Interpretive Data was last revised on 2024. Non-HDL Cholesterol 73 mg/dL ANUSHA Comment: Interpretive Data Ages < or = [...] NP LAB BLOOD ORDERABLES Final R esult [facility] [address] [place] [address] * Comprehensive metabolic panel (10/26/2024 4:44 AM CDT) Sodium 135 135 - 145 mmol/L Potassium, pl 4.3 3.3 - 4.9 mmol/L [facility] Chloride 101 97 - 110 mmol/L [facility] CO2 22 22 - 32 mmol/L [facility] Anion gap 12 2 - 15 mmol/L [facility] BUN 15 6 - 25 mg/dL [facility] Creatinine 0.95 0.80 - 1.30 mg/dL [facility] Glucose 109 70 - 199 mg/dL [facility] Comment: Interpretive Data Fasting glucose >/= 126 [...] LAB BLOOD ORDERABLES Final R esult ANUSHA [address] [place] [address] * XR Chest 1 View (10/25/2024 10:05 [...] Electronically signed by: Marques Tian II, D.O. us Caroline Cobos MD IMG XR PROCEDURES Julee l Result * (ABNORMAL) Troponin T high-sensitivity 4-hour (10/25/2024 7:43 PM CDT) Trop T hs 28(H) <=22 ng/L Comment: Interpretive Data For further hscTnT resources including the diagnostic algorithm and an aid in interpretation, copy and paste this link: https://nrl.testcatalog.org/show/hsTrop Current Interpretive Data last revised 2020. Trop T hs delta 9 ng/L [facility] Trop T hs interp Equivocal [facility] Blood 10/25/2024 7:43 PM CDT 10/25/2024 7:47 PM CDT us Caroline Cobos MD LAB BLOOD ORDERABLES F inal Result ANUSHA [address] [place] [address] * MRI Brain W WO Contrast (10/25/2024 [...] preliminary report was provided by the teleradiologist internal consultant. Electronically signed by: Jarrett Ann M.D. Narrative [...] preliminary report was provided by the teleradiologist internal consultant. Electronically signed by: Jarrett Ann M.D. Caroline Cobos MD IM MRI PROCEDURES Fin al Result * (ABNORMAL) Troponin T high-sensitivity 2-hour (10/25/2024 6:12 PM CDT) Trop T hs 26(H) <=22 ng/L Comment: Interpretive Data For further hscTnT resources including the diagnostic algorithm and an aid in interpretation, copy and paste this link: https://nrl.testcatalog.org/show/hsTrop Current Interpretive Data last revised 2020. Trop T hs delta 7 ng/L CERZAHEER DIXON Trop T hs interp Equivocal ANUSHA DIXON Blood 10/25/2024 6:12 PM CDT 10/25/2024 6:12 PM CDT us Caroline Cobos MD LAB BLOOD ORDERABLES F inal Result ANUSHA DIXON [address] [place] [address] * CTA Stroke Head Neck W WO Contrast (10/25/2024 5:01 PM CDT) Anatomical Region Laterality Modality Head and Neck N/A Computed Tomogra phy 10/25/2024 5:40 PM CDT Impressions 10/26/2024 11:[address] evidence of acute stroke. No significant cervical internal carotid artery stenosis. Calcified plaque with severe stenosis precavernous right internal carotid , moderate at left carotid terminus and gtfs-rr-gudsjxqf in the cavernous segment. Calcified plaque with [...] Subsequently, CT angiogram of the neck and north fork of [place] was performed after the uneventful [...] with mild stenosis of the precavernous and cwja-zb-bytfsoaz cavernous with mild supraclinoid stenosis L ICA [...] to severe middle third basilar stenosis. L CLAIMS ACCOUNT SPECIALIST: no occlusion or significant stenosis origin noted R CLAIMS ACCOUNT SPECIALIST: no occlusion or significant stenosis, a [...] Subsequently, CT angiogram of the neck and north fork of [place] was performed after the uneventful [...] with mild stenosis of the precavernous and zqnz-lv-bqfnukoj cavernous with mild supraclinoid stenosis L ICA [...] to severe middle third basilar stenosis. L CLAIMS ACCOUNT SPECIALIST: no occlusion or significant stenosis origin noted R CLAIMS ACCOUNT SPECIALIST: no occlusion or significant stenosis, a [...] , moderate at left carotid terminus and qwrv-oa-iyqxtoeh in the cavernous segment. Calcified plaque with [...] CT head obtained. Comparison:CT head 11/20/2023. Findings: Pzrc-of-nfmzxpjt nonspecific ventricles, sulci and cisterns is seen [...] CT head obtained. Comparison:CT head 11/20/2023. Findings: Yarv-mi-bknnnhtq nonspecific ventricles, sulci and cisterns is seen [...] IMG CT PROCEDURES Julee l Result * [place] [facility] ILL/INJURED PATIENT INIT 30-74 MIN [...] patient to a continuous cardiac monitored bed. us Caroline Cobos MD IN CLINIC/BEDSIDE ORDE RABLES Final Result * Type and screen (10/25/2024 4:10 PM CDT) Maryana, indirect Negative ABO Rh O Positive ANUSHA Blood 10/25/2024 4:10 PM CDT 10/25/2024 4:18 PM CDT Narrative [facility] - 10/25/2024 5:16 PM CDT Has the patient had Daratumumab or Isatuximab in the past 6 months?->Unknown Caroline Cobos MD LAB BLOOD BANK TEST OR DERABLES Final Result Performing Organization Address City/[facility]/ZIP Co de Phone Number ANUSHA [address] [address] [place] [employer] [place] [address] * POCT glucose (10/25/2024 4:06 PM CDT) Pathologist [facility] Glucose, POC 139 70 - 199 mg/dL POC Performer [id number] [facility] Blood 10/25/2024 4:06 PM CDT 10/25/2024 4:06 PM CDT Caroline Cobos MD LAB POCT ORDERABLES - DEVICE Final Result Performing Organization Address City/[facility]/ZIP Co de Phone Number ANUSHA [address] [address] Department [employer] [place], [place] [phone] * Troponin T high-sensitivity series (baseline, 2hr, 4hr, 6hr) (10/25/2024 4:05 PM CDT) Pathologist [facility] Trop T hs 19 <=22 ng/L Comment: Interpretive Data For further hscTnT resources including the diagnostic algorithm and an aid in interpretation, copy and paste this link: https://nrl.testcatalog.org/show/hsTrop Current Interpretive Data last revised 2020. Blood 10/25/2024 4:05 PM CDT 10/25/2024 4:18 PM CDT Caroline Cobos MD LAB BLOOD ORDERABLES F inal Result Performing Organization Address City/[facility] Co de Phone Number ANUSHA DIXON [address] [address] [place] [address] * eGFR (10/25/2024 4:05 PM CDT) eGFR >90 >=60 mL/min/1. 73 m2 [...] ORDERABLES F inal Result Performing Organization Address City/[facility] Co de Phone Number ANUSHA DIXON [address] [address] Department of Laboratories [place], [place] [phone] * (ABNORMAL) Differential, auto (10/25/2024 4:05 PM CDT) Neutrophil abs 6.19 1.50 - 6.50 K/cumm Imm gran abs 0.03 0.00 - 0.10 K/cumm [facility] Lymphocyte abs 2.67 0.80 - 3.30 K/cumm [facility] Monocyte abs 1.08(H) 0.20 - 0.80 K/cumm [facility] Eosinophil abs 0.44 0.00 - 0.50 K/cumm [facility] Basophil abs 0.05 0.00 - 0.10 K/cumm [facility] Neutrophil pct 59.2 % [facility] Comment: Interpretive Data Percent cell count reference ranges are not reported, since discordance with absolute values may lead to misinterpretation of CBC data. Current Interpretive Data was last revised on 2017. Imm gran pct 0.3 % [facility] Comment: Interpretive Data Percent cell count reference ranges are not reported, since discordance with absolute values may lead to misinterpretation of CBC data. Current Interpretive Data was last revised on 2017. Lymphocyte pct 25.5 % [facility] Comment: Interpretive Data Percent cell count reference ranges are not reported, since discordance with absolute values may lead to misinterpretation of CBC data. Current Interpretive Data was last revised on 2017. Monocyte pct 10.3 % [facility] Comment: Interpretive Data Percent cell count reference ranges are not reported, since discordance with absolute values may lead to misinterpretation of CBC data. Current Interpretive Data was last revised on 2017. Eosinophil pct 4.2 % [facility] Comment: Interpretive Data Percent cell count reference ranges are not reported, since discordance with absolute values may lead to misinterpretation of CBC data. Current Interpretive Data was last revised on 2017. Basophil pct 0.5 % [facility] Comment: Interpretive Data Percent cell count reference ranges are not reported, since discordance with absolute values may lead to misinterpretation of CBC data. Current Interpretive Data was last revised on 2017. Blood 10/25/2024 4:0 5 PM CDT 10/25/2024 4:18 PM CDT us Caroline Cobos MD LAB BLOOD ORDERABLES F inal Result ANUSHA DIXON [address] [address] [place] [address] * (ABNORMAL) CBC with auto differential (10/25/2024 4:05 PM CDT) WBC 10.46(H) 3.80 - 9.90 K/cumm Hgb 12.6(L) 13.0 - 17.5 g/dL [facility] Hct 39.2 38.9 - 50.3 % [facility] Plt 277 150 - 400 K/cumm [facility] MPV 10.0 9.1 - 12.3 fL [facility] RBC 4.20(L) 4.30 - 5.80 M/cumm [facility] MCV 93.3 81.3 - 96.4 fL [facility] MCH 30.0 27.1 - 33.3 pg [facility] MCHC 32.1(L) 32.3 - 35.7 g/dL [facility] RDW CV 14.1 11.1 - 14.9 % [facility] RDW SD 47.8 35.7 - 48.1 fL [facility] NRBC abs 0.00 0.00 - 0.01 K/cumm [facility] Blood 10/25/2024 4:05 PM CDT 10/25/2024 4:18 PM CDT Caroline Cobos MD LAB BLOOD ORDERABLES F inal Result Performing Organization Address [facility] Co de Phone Number ANUSHA DIXON [address] [email or web address] [address] * (ABNORMAL) Prolactin (10/25/2024 4:05 PM CDT) Pathologist [facility] Prolactin 62.8(H) 4.0 - 15.2 ng/mL Blood 10/25/2024 4:0 5 PM CDT 10/25/2024 5:01 PM CDT Caroline Cobos MD LAB BLOOD ORDERABLES F inal Result Performing Organization Address City/[facility] Co de Phone Number ANUSHA DIXON [address] [address] [facility] [place] [address] * aPTT (10/25/2024 4:05 PM CDT) Pathologist [facility] aPTT 30 28 - 38 sec Comment: Interpretive Data Heparin therapeutic range: 66.0 - 100.0 seconds. Range based on correlation with therapeutic heparin activity range of 0.3 - 0.7 Units/mL. Current interpretive data was last revised on 2023. Blood 10/25/2024 4:05 PM CDT 10/25/2024 4:18 PM CDT Caroline Cobos MD LAB BLOOD ORDERABLES F inal Result Performing Organization Address [facility] de Phone Number [facility] [address] [address] Department [email or web address] [place] [address] * (ABNORMAL) Protime-INR (10/25/2024 4:05 PM CDT) PT 14.2(H) 9.7 - 13.0 sec INR 1.31(H) 0.90 - 1.20 ANUSHA Comment: Interpretive data Oral anticoagulant therapeutic ranges: Venous thromboembolism prophylaxis or treatment: 2.0-3.0 CARDIOLOGY Standard range: 2.0-3.0 High-intensity range: 2.5-3.5 Refer to indication-specific guidelines for appropriate target ranges for prosthetic heart valve replacement. Current interpretive data was last revised on 2019. Blood 10/25/2024 4:05 PM CDT 10/25/2024 4:18 PM CDT Caroline Cobos MD LAB BLOOD ORDERABLES F inal Result Performing Organization Address [facility] Co de Phone Number [facility] [address] [email or web address] [address] * Creatine kinase (CK), total (10/25/2024 4:05 PM CDT) CK 56 40 - 300 Units/L Blood 10/25/2024 4:05 PM CDT 10/25/2024 5:01 PM CDT Caroline Cobos MD LAB BLOOD ORDERABLES F inal Result ANUSHA [address] [address] Department of Laboratories [place] [phone] * Comprehensive metabolic panel (10/25/2024 4:05 PM CDT) Sodium 135 135 - 145 mmol/L Potassium, [...] BLOOD ORDERABLES F inal Result ANUSHA DIXON [address] [address] [place] [address] * ECG 12 lead (10/25/2024 4:04 PM CDT) 10/25/2024 4:04 PM CDT Narrative [facility] - 10/25/2024 7:51 PM CDT Vent Rate: 117 bpm RR Interval: 509 msec MO Interval: 166 msec QRS Duration: 108 msec QT Interval: 322 msec QTC Interval: 392 msec P-R-T [place]: 250 - 53 - 26 degrees IMPRESSION: Baseline artifact, probable sinus tachycardia SEPTAL MYOCARDIAL INFARCTION , PROBABLY OLD ABNORMAL ECG Recommend repeat EKG stable baseline for accurate rhythm assessment Electronically Signed By: Murphy Gaitan MD us Caroline Cobos MD ECG ORDERABLES Final Result [facility] [employer] [facility] * MRI Brain WO Contrast (09/16/2024 3:11 PM CDT) Anatomical Region Laterality Modality Head and Neck N/A Magnetic Resonan ce us Stacia Shanks NP IMG MRI PROCEDURES Final Res ult from Last 3 Months Additional Health Concerns Infection Onset Date Last Indicated Ring Surveillance: C. auris 12/08/2024 07 Insurance [facility] MEDICARE HMO [facility] MEDICARE HMO Advance Directives For more information, please contact: [phone] * Full Code (Latest Code Status on [...] 12:29 PM 11/15/2024 12:43 PM Care Teams Client Development Consultant Relationship Specialty Start Date End Date Raquel Callejas MD [address] [facility] [address] [place] [address] PCP - General Internal Medicine 01/16/20 [place] [id number] [address] Consulting Physician Cardiology 08/28/20 Sage Tillman MD [address] [place] [address] Referring Physician Cardiology 12/09/24 [place] [id number] [facility] [address] [place] [address] Consulting Physician Urology 12/09/24 [place] [address] [facility] [address] [place] [address] Consulting Physician Neurology 12/09/24
--- OUTSIDE RECORDS SUMMARY | 2024-12-10 04:33 | XMS_ITS | Encounter Summary ---
Author Organization [facility] Address [address] [place] [address] Phone Care Team Providers Care Bridge Attacher Name Role Phone Raquel Callejas MD Primary Care Provide r Chetan Mayer MD Unavailable Sage Tillman MD Unavailable Michael Pretty MD Unavailable [phone] Tawny CLAYTON MD, Ricky Duong Unavailable [phone] Encounter Details Date Type Department Care Team (Late st Contact Info) Description 09/16/2017 Orders Only [facility] ProviderConcha MD [facility] [place] [address] Social History Tobacco Use Types Packs/Day Years Used Date Smoking Tobacco: Never Assessed Sex and Gender Information Value Date Recorded Sex Assigned at Not on file Legal Sex 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 us Historical Provider LAB BLOOD ORDERABLES Julee l Result documented in this encounter Visit Diagnoses Not on filedocumented in this encounter Additional Health Concerns Infection Onset Date Last Indicated Resolved Time Ring Surveillance: C. auris Comment:[facility] - October 2024 11/25/2024 11/25/2024 11/27/2024 4:15 PM C DT COVID: Suspected 11/27/2024 11/27/2024 11/27/2024 4:43 PM CDT Ring Surveillance: C. auris 12/08/2024 12/08/2024 documented as of this encounter Care Teams Bridge Attacher Relationship Specialty Start Date End Date Raquel Callejas MD [address] [facility] [address] [place] [address] PCP - General Internal Medicine 01/16/20 [place] [address] [facility] [address] [place] [address] Consulting Physician Cardiology 08/28/20 Sage Tillman MD [address] [place] [address] Referring Physician Cardiology 12/09/24 [place] [address] [facility] [address] [place] [address] Consulting Physician Urology 12/09/24 [place] [address] [facility] [address] [place] [address] Consulting Physician Neurology 12/09/24 documented as of this encounter
--- OUTSIDE RECORDS SUMMARY | 2024-12-10 04:33 | XMS_ITS | Encounter Summary ---
Author Organization [facility] Address [address] [place] [address] Care Team Providers Care Rigging Man Name Role Phone Raquel Callejas MD Primary Care Provide r Chetan Myaer MD Unavailable Sage Tillman MD Unavailable Michael Pretty MD Unavailable [phone] Tawny CLAYTON MD, Ricky Duong Unavailable [phone] Encounter Details Date Type Department Care Team (Late st Contact Info) Description 11/27/2024 Hospital Encounter [facility]MIT [address] [place] [address] Social History Tobacco Use Types Packs/Day Years Used Date Smoking Tobacco: Former Cigarettes Q uit: 2000 Smokeless Tobacco: Never Alcohol Use Standard Drinks/Week Comments Yes 30 (1 standard drink = 0.6 oz pu re alcohol) [facility] Utilities Answer Date Recorded In the past 12 months has [employer], gas, oil, or water company threatened to [...] week 11/28/2024 How often do you attend restorationism or moravian serv ices? Never 11/28/2024 Do you belong to any clubs o r organizations such as restorationism groups, unions, fraternal or athletic groups, or [...] Recorded Patient Health Questionnaire-2 Score 0 11/27/2024 [facility] - Occupational Stress [...] any time in the past 12 m onths, were you homeless or living in a mcfp (including now)? No 11/28/2024 Personal Safety Answer Date Recorded Have you ever been in or are you currently in a harmful physical or emotional relationship or is someone making you feel afraid or unsafe? 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 Question Answer Date of Assessment Author Patient Health Questionnaire -2 Score 0 11/27/2024 7:57 AM Chika Branch MSW * Over the past 2 weeks, how often have you been bothered by any of the following problems? Question Answer Date of Assessment Author Little interest or pleasure in doing things Not at all 11/27/2024 7:57 AM Chika Branch MSW Feeling down, depressed, or hopeless Not at all 11/27/2024 7:57 AM Chika Branch MSW documented as of this encounter Plan of Treatment Not on file documented as of this encounter Visit Diagnoses Not on filedocumented in this encounter Additional Health Concerns Infection Onset Date Last Indicated Resolved Time Ring Surveillance: Simon. som Comment:[facility] - October 2024 11/25/2024 11/25/2024 11/27/2024 4:15 PM C DT COVID: Suspected 11/27/2024 11/27/2024 11/27/2024 4:43 PM CDT Ring Surveillance: C. auris 12/08/2024 12/08/2024 documented as of this encounter Care Teams Rigging Man Relationship Specialty Start Date End Date Raquel Callejas MD [address] [place] [address] PCP - General Internal Medicine 01/16/20 [place] [address] [facility] [address] [place] [address] Consulting Physician Cardiology 08/28/20 Sage Tillman MD [address] [place] [address] Referring Physician Cardiology 12/09/24 [place] [id number] [facility] [address] [place] [address] Consulting Physician Urology 12/09/24 [place] [address] [facility] [address] [place] [address] Consulting Physician Neurology 12/09/24 documented as of this encounter
--- OUTSIDE RECORDS SUMMARY | 2024-12-10 04:33 | XMS_ITS | Clinical Summary ---
Author Organization [facility] Ryan Pina Address [address] [place] [place] [address] Care Team Providers Care Social Work Manager Name Role Phone Latanya Callejas MD Primary Care Provider Allergies No known active allergies Medications atorvastatin (LIPITOR) 80 mg tablet Take 80 mg by mouth. 3 Active cetirizine (ZyrTEC) 10 mg tablet Take 10 mg by mouth. Active clopidogreL (PLAVIX) 75 mg Tablet Take 75 mg by mouth. Active ferrous sulfate 325 mg (65 mg iron) tablet Take 325 mg by mouth. Active fluticasone propionate (FLONASE) 50 mcg/spray [place], Suspension nasal inhaler Administer 1 Cunningham in each nostril. 2 Active lisinopriL (PRINIVIL) 20 mg tablet Take 20 mg by mouth daily at bedtime. Active thiamine (Vitamin B-1) 100 mg tablet Take 1 Tablet by mouth daily. 2 Active aspirin (MAGDALENO) 325 mg tablet Take 325 mg by mouth daily. 4 Active Eliquis 5 mg tablet Take 5 mg by mouth 2 times daily. 5 Active ezetimibe (ZETIA) 10 mg tablet Take 10 mg by mouth daily. 4 Active Active Problems No known active problems Encounters Date Type Department Care Team Description 10/20/2024 External Device Data [facility] ABSTRACTION Provider, Abstract 10/19/2024 External Device Data [facility] ABSTRACTION Provider, Abstract 10/18/2024 External Device Data [facility] ABSTRACTION Provider, Abstract 09/13/2024 External Device Data [facility] ABSTRACTION Provider, Abstract from Last 3 Months Family History Medical History Relation Name Comments No Known Problems Brother 1 No Known Problems Brother 2 No Known Problems Brother 3 No Known Problems Father No Known Problems Mother Solid Tumor Sister No Known Problems Son 1 No Known Problems Son 2 Relation Name Status Comments Brother 1 Alive Brother 2 Alive Brother 3 Alive Father Alive Mother Alive Sister Alive Son 1 Alive Son 2 Alive Social History Tobacco Use Types Packs/Day Years Used Date Smoking Tobacco: Former Cigarettes 0.5 35 0 [birth year]01/1965 - 06/01/1999 Smokeless Tobacco: Never Tobacco Cessation:Counseling Given: Not Answered Alcohol Use Standard Drinks/Week Comments Yes 5 (1 standard drink = 0.6 oz pur e alcohol) Everyday Sex and Gender Information Value Date Recorded Sex Assigned at Not on file Legal Sex Male 8:36 AM CDT Gender Identity Not on file Sexual Orientation Not on file Last Filed Vital Signs Vital Sign Reading Time Taken Comments Blood Pressure 124/74 07/29/2024 9:14 AM MANAGER EDITORIAL Pulse 53 07/29/2024 9:14 AM MANAGER EDITORIAL Temperature 35.8 C (96.5 F) 07/29/2024 9:14 AM MANAGER EDITORIAL Respiratory Rate 15 07/29/2024 9:14 AM MANAGER EDITORIAL Oxygen Saturation 98% 07/29/2024 9:14 AM MANAGER EDITORIAL Inhaled Oxygen Concentration - - Weight 81.1 kg (178 lb 12.8 oz) 07/29/2024 9:14 AM MANAGER EDITORIAL Height 170.2 cm (5' 7) 05/14/2023 10:1 7 AM MANAGER EDITORIAL Body Mass Index 28 05/14/2023 10:17 AM MANAGER EDITORIAL Plan of Treatment Upcoming Encounters Date Type Department Care Team (Late st Contact Info) Description 02/17/2025 9:45 AM CDT Office Visit [facility] Oncology and Hematology - [place] [address] [facility] [address] [place] [address] Faisal Heaton MD [address] [facility] [address] [place] [address] Health Maintenance Due Date Last Done Comments DTAP/TDAP/TD VACCINES (1 - Tdap) 1968 COLORECTAL SCREENING 1994 Colorectal Cancer Screening 1994 FIT-DNA Q 3 years 1994 FIT/FOBT Q 1 year 1994 Flex Sig/CT Colonography Q 5 years 1994 Abdominal Aortic Aneurysm (A AA) Screening 2014 COVID-19 Vaccine (2023-2 5 season) 2024 03/06/2023, 05/14/2022, 11/08/2021, Additional history exists RSV VACCINE (60+ or ) (1 - 1-dose 75+ series) 2024 INFLUENZA VACCINE (#1) 2024 , 03/03/2023, 05/06/2022, Additional history exists PNEUMOCOCCAL VACCINE 50+ YEARS Completed 09/09/2017 , 09/05/2016 ZOSTER VACCINE Completed 08/14/2022, 06/16/2022 Insurance [employer] [facility] Care Teams Social Work Manager Relationship Specialty Start Date End Date Latanya Callejas MD PCP - General Internal Medicine 05/14/23
--- OUTSIDE RECORDS SUMMARY | 2024-12-10 04:33 | XMS_ITS | Data Portability ---
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6, TP WNL Chol 218, LDL 102 H/H 11.9/35.7 06/30/2023: PSA 0.79 H/H 10.8/33.1 11/30/2023: Alb 4.6, TP WNL A1C 6.1 H/H 12.4/37.7 03/02/2024: A1C 5.8 ALB 4.5, TP WNL H/H 12.2/37.6 Not available 03/06/2024 11:57:58 05/17/2024 05/17/2024 01/06/2022: PSA 0.59 04/28/2022: A1C 5.6 CMP Na 1332, Alb 4.5 Chol 210, LDL 99 TSH: WNL VIT D WNL CBC: H/H 12.5/39.0 10/24/2022: A1C 5.5 Gluc 104 Chol 211, LDL 102 H/H 12.4/37.7 02/24/2023: A1C 5.6 Na 130, Alb 4.6, TP WNL Chol 218, LDL 102 H/H 11.9/35.7 06/30/2023: PSA 0.79 H/H 10.8/33.1 11/30/2023: Alb 4.6, TP WNL A1C 6.1 H/H 12.4/37.7 03/02/2024: A1C 5.8 ALB 4.5, TP WNL H/H 12.2/37.6 [email or web address] Not available 05/17/2024 17:14:23 07/05/2024 07/05/2024 01/06/2022: PSA 0.59 04/28/2022: A1C 5.6 CMP Na 1332, Alb 4.5 Chol 210, LDL 99 TSH: WNL VIT D WNL CBC: H/H 12.5/39.0 10/24/2022: A1C 5.5 Gluc 104 Chol 211, LDL 102 H/H 12.4/37.7 02/24/2023: A1C 5.6 Na 130, Alb 4.6, TP WNL Chol 218, LDL 102 H/H 11.9/35.7 06/30/2023: PSA 0.79 H/H 10.8/33.1 11/30/2023: Alb 4.6, TP WNL A1C 6.1 H/H 12.4/37.7 03/02/2024: A1C 5.8 ALB 4.5, TP WNL H/H 12.2/37.6 I have reconciled the patient's medications post their discharge from inpatient facility. Not available 07/05/2024 10:02:22 08/23/2024 08/23/2024 01/06/2022: PSA 0.59 04/28/2022: A1C 5.6 CMP Na 1332, Alb 4.5 Chol 210, LDL 99 TSH: WNL VIT D WNL CBC: H/H 12.5/39.0 10/24/2022: A1C 5.5 Gluc 104 Chol 211, LDL 102 H/H 12.4/37.7 02/24/2023: A1C 5.6 Na 130, Alb 4.6, TP WNL Chol 218, LDL 102 H/H 11.9/35.7 06/30/2023: PSA 0.79 H/H 10.8/33.1 11/30/2023: Alb 4.6, TP WNL A1C 6.1 H/H 12.4/37.7 03/02/2024: A1C 5.8 ALB 4.5, TP WNL H/H 12.2/37.6 08/16/2024: A1C 5.8 H/H 11.3/34.6 Na 133 Not available 08/21/2024 13:29:45 09/14/2024 09/14/2024 73-year-old male presents for evaluation of his left knee. He reports pain that has been ongoing for years, getting progressively worse. He has a history of knee arthritis as well as a stroke on the right side. He currently rates pain 7/10. He has used topical Voltaren but has not had any other treatments. He also has a history of a bypass and multiple stents, recently switched from Plavix to Eliquis. He is retired. Review of systems per patient questionnaire Physical exam: He has tenderness palpation of the mediolateral joint line. Range of motion 5-130. Stable ligaments. X-rays were reviewed, demonstrating degenerative changes with joint space narrowing particularly medial compartment, osteophytes, sclerosis He has knee osteoarthritis, acute on chronic. We will begin with a course of conservative management with physical therapy. He can not take oral anti-inflammator ies because of his blood thinners so he should continue using the Voltaren. We will see him back in 8 weeks after course treatment. If he has persistent symptoms the next step would be to do a cortisone injection. He is in agreement with plan. [email or web address] Not available 09/14/2024 12:25:49 Plan of Treatment Reminders Order Date Submit Date Provider Last Modified By Organization Details Last Modified Time Details Appointments None recorded. Lab lipid panel, serum 2024 [facility]25 [email or web address] [address] [place] [address] (Lab), [address] [place], [address], 5 11:27:10 CBC w/ auto diff 2024 025 [email or web address] [address] [place] [address] (Lab), [address] [place], [address], 5 11:27:10 CMP, serum or plasma 2024 025 [email or web address] [address] [place] [address] (Lab), [address] [place], [address], 5 11:27:10 T4, free, serum [address] (Lab), [address] [place], [address], 5 11:27:11 TSH, serum or plasma 2024 025 [facility] [address] [place] [address] (Lab), [address] [place], [address], 5 11:27:11 vitamin B12 + folate, serum or blood [address] (Lab), [address] [place], [address], 5 11:27:11 glycohemog lobin, total, blood [address] (Lab), [address] [place], [address], 5 11:27:12 vitamin D, 25-hydroxy , total, serum [address] (Lab), [address] [place], [address], 5 11:27:10 glycohemog lobin, total, blood 2024 025 [facility] (Lab), [address] [place], [address], 5 17:23:15 vitamin D, 25-hydroxy , total, serum [address] (Lab), [address] [place], [address], 5 10:06:36 vitamin B12 + folate, serum or blood [address] (Lab), [address] [place], [address], 5 10:06:37 lipid panel, serum 2024 025 [facility] (Lab), [address] [place], [address], 5 12:33:11 CBC w/ auto diff 2024 025 [facility] (Lab), [address] [place], [address], 5 23:17:42 CMP, serum or plasma 2024 025 [facility] (Lab), [address] [place], [address], 5 23:25:18 T4, free, serum 2024 025 [facility] (Lab), [address] [place], [address], 5 12:57:03 TSH, serum or plasma 2024 025 [facility] (Lab), [address] [place], [address], 5 13:05:13 glycohemog lobin, total, blood 2023 024 [facility] (Lab), [address] [place], [address], 5 20:11:34 vitamin D, 25-hydroxy , total, serum [address] (Lab), [address] [place], [address], 5 09:20:01 vitamin B12 + folate, serum or blood [address] (Lab), [address] [place], [address], 5 09:20:02 lipid panel, serum 2023 024 [facility] (Lab), [address] [place], [address], 5 14:54:49 CBC w/ auto diff [address] (Lab), [address] [place], [address], 5 09:20:02 CMP, serum or plasma [address] (Lab), [address] [place], [address], 5 09:20:02 T4, free, serum 2023 024 [facility] (Lab), [address] [place], [address], 5 15:11:11 TSH, serum or plasma 2023 [email or web address] [facility] (Lab), [address] [place], [address], 5 15:24:48 lipid panel, serum [address] (Lab), [address] [place], [address], 5 08:23:01 CBC w/ auto diff [address] (Lab), [address] [place], [address], 5 08:23:02 CMP, serum or plasma [address] (Lab), [address] [place], [address], 5 08:23:02 T4, free, serum [address] (Lab), [address] [place], [address], 5 08:23:02 TSH, serum or plasma [address] (Lab), [address] [place], [address], 5 08:23:02 vitamin B12 + folate, serum or blood [address] (Lab), [address] [place], [address], 5 08:23:02 glycohemog lobin, total, blood 2023 024 [email or web address] 6 [facility] (Lab), [address] [place], [address], 5 08:23:02 vitamin D, 25-hydroxy , total, serum 2023 024 [email or web address] 6 [facility] (Lab), [address] [facility] [place], [address], 5 08:23:01 Referral physical therapist referral - Please schedule pt for L knee. Thanks 2024 025 [facility], [address], [place], [address], 5 11:40:12 orthopedic surgeon referral 2024 025 [email or web address] 6 Rustam Martinez MD, [address] [facility], [place], [address], 5 11:27:[address] referral - Please call patient to schedule an appointmen t. Thank you. 2024 025 [email or web address] [address] [place], [address] [address], [facility] [place], [address], 5 10:14:[address] referral 2024 025 [email or web address] [place], [address] [address], [address], [place], [address], 5 09:36:[address] referral - Please call patient to schedule an appointmen t. Thank you. 2024 025 DEBBY Heaton MD, [address], [place], [address], 5 12:42:[address] referral 2023 024 [email or web address] [place], [address] [address], [address], [place], [address], 4 18:12:[address] referral 2023 024 [email or web address] Aashish Heaton MD, [address], [place], [address], 4 18:12:[address] referral 2023 024 [email or web address] Aashish Heaton MD, [address], [place], [address], 4 10:24:22 vascular surgeon referral - Please call patient to schedule. 2023 024 [email or web address] Tyrone Huang MD ([facility]), [address], [place] [address], [address], 4 15:22:[address] referral 2023 024 [email or web address] [place], [address] [address], [address], [place], [address], 4 10:24:23 Procedures None recorded. Surgeries None recorded. Imaging XR, knee, 3 view 2024 025 [email or web address] [facility], [address], [place], [address], 5 12:54:25 Medication Orders furosemide 20 mg tablet 2024 025 [email or web address] [facility], [address], [place], [address], 5 10:44:15 potassium chloride ER 10 mEq tablet,ext ended release 2024 025 [email or web address] [facility], [address] [facility], [place], [address], 10:44:27 Patient TargetsNo targets recorded. Patient Instructions Encounter Date Encounter Id Patient Instructions Last Modified By Organization Details Last Modified Time 07/05/2024 [id number] Thank you for your visit to our office today. We would like to request that you reach out to your referring or previous provider and request that they send us a Summary of Care in electronic form, so that we may have it on file in your medical record. At your visit, we had the medical records we needed to provide you with the best possible care; however, for insurance purposes, an electronic Summary of Care is beneficial. Thank you for your assistance in obtaining this information and we look forward to providing continued care to you. Please review your medication list from the Summary of Care for this visit. If there are any differences from what you are currently taking at home, please call us to discuss. [email or web address] Not available 07/05/2024 09:12:13 Homebound Status : Required Home Health Services: Durable Medical Equipment needed: Billing Guidelines CPT code 31269- Transitional Care Management services with moderate medical decision complexity ([id number]-cq-[id number] visit within 14 days of discharge). CPT code 06897- Transitional Care Management services with high medical decision complexity ([id number]-fp-[id number] visit within 7 days of discharge). [email or web address] Not available 07/05/2024 09:12:13 Reason for Referral Referring Physician: Hieu Callejas Internal Medicine, Encounter Date: 03/08/2024 Clinical Provider Trainer Referral for Co ronary arteriosclerosis Referring Physician: Hieu Callejas Internal Medicine, Encounter Date: 03/08/2024 Vascular Surgeon Referral fo r Vertebral artery stenosis Please call patient to schedule. Referring Physician: Elliott Yi Medicine, Encounter Date: 03/08/2024 Referring Physician: Hieu Callejas Internal Medicine, Encounter Date: 05/17/2024 Clinical Provider Trainer Referral for Co ronary arteriosclerosis Referring Physician: Elliott Yi Medicine, Encounter Date: 05/17/2024 Please call patient to sched ule an appointment. Thank you. Referring Physician: Hieu Callejas Internal Medicine, Encounter Date: 07/05/2024 Clinical Provider Trainer Referral for Co ronary arteriosclerosis Referring Physician: Hieu Callejas Internal Medicine, Encounter Date: 07/05/2024 Clinical Provider Trainer Referral for Co ronary arteriosclerosis Please call patient to schedule an appointment. Thank you. Referring Physician: Hieu Callejas, Internal Medicine, Encounter Date: 08/23/2024 Orthopedic Surgeon Referral for Pain of left knee joint Referring Physician: Hieu Callejas, Internal Medicine, Encounter Date: 08/23/2024 Physical Therapist Referral for Pain of left knee joint L knee Please schedule pt for L knee. Thanks Referring Physician: Rustam Martinez, Orthopedic Surgery, Encounter Date: 09/14/2024 Results Created Date Observation Date Name Description Value Unit Range Abnormal Flag Note LastModifiedBy Organization Detail LastModifiedTime 03/02/2003/02/2024 CBC/C OMPLE TE BLD COUNT W/DIF F white blood cells 7.5 x10'3 /uL 4.2-10 .8 Not Available [facility] (Lab) [address] [place], [address], 03/02/2024 16:24:37 03/02/2003/02/2024 CBC/C OMPLE TE BLD COUNT W/DIF F red blood cells 4.01 x10'6 /uL 4.10-5 .80 low Not Available [facility] (Lab) [address] [place], [address], 03/02/2024 16:24:37 03/02/20 24 03/02/2024 CBC/C OMPLE TE BLD COUNT W/DIF F hemoglobin 12.2 g/dL 13.2-1 7.0 low Not Available [facility] (Lab) [address] [place], [address], 03/02/2024 16:24:37 03/02/20 24 03/02/2024 CBC/C OMPLE TE BLD COUNT W/DIF F hematocrit 37.6 % 39.3-5 0.0 low Not Available [facility] (Lab) [address] [place], [address], 03/02/2024 16:24:37 03/02/20 24 03/02/2024 CBC/C OMPLE TE BLD COUNT W/DIF F mean red cell volume 93.8 fL 80.0-9 7.0 Not Available [facility] (Lab) [address] [place], [address], 03/02/2024 16:24:37 03/02/20 24 03/02/2024 CBC/C OMPLE TE BLD COUNT W/DIF F mean red cell hemoglobin 30.4 pg 27.0-3 3.0 Not Available [facility] (Lab) [address] [place], [address], 03/02/2024 16:24:37 03/02/20 24 03/02/2024 CBC/C OMPLE TE BLD COUNT W/DIF F mean RBC HGB concentratio n 32.4 g/dL 31.0-3 6.0 Not Available [facility] (Lab) [address] [place], [address], 03/02/2024 16:24:37 03/02/20 24 03/02/2024 CBC/C OMPLE TE BLD COUNT W/DIF F red cell distribution width 15.0 % 11.8-1 5.5 Not Available [facility] (Lab) [address] [place], [address], 03/02/2024 16:24:37 03/02/20 24 03/02/2024 CBC/C OMPLE TE BLD COUNT W/DIF F platelets 320 x10'3 /uL 150-40 0 Not Available [facility] (Lab) [address] [place], [address], 03/02/2024 16:24:37 03/02/2003/02/2024 CBC/C OMPLE TE BLD COUNT W/DIF F mean platelet volume 10.4 fL 9.0-12 .4 Not Available [facility] (Lab) [address] [place], [address], 03/02/2024 16:24:37 03/02/2003/02/2024 CBC/C OMPLE TE BLD COUNT W/DIF F neutrophils 64.0 % 39.0-7 2.0 Not Available [facility] (Lab) [address] [place], [address], 03/02/2024 16:24:37 03/02/20 24 03/02/2024 CBC/C OMPLE TE BLD COUNT W/DIF F lymphocytes 20.1 % 16.0-4 7.0 Not Available [facility] (Lab) [address] [place], [address], 03/02/2024 16:24:37 03/02/20 24 03/02/2024 CBC/C OMPLE TE BLD COUNT W/DIF F monocytes 11.1 % 5.0-12 .0 Not Available [facility] (Lab) [address] [place], [address], 03/02/2024 16:24:37 03/02/2003/02/2024 CBC/C OMPLE TE BLD COUNT W/DIF F eosinophils 3.4 % 1.0-7. 0 Not Available [facility] (Lab) [address] [place], [address], 03/02/2024 16:24:37 03/02/20 24 03/02/2024 CBC/C OMPLE TE BLD COUNT W/DIF F basophils 1.1 % 0.0-2. 0 Not Available [facility] (Lab) [address] [place], [address], 03/02/2024 16:24:37 03/02/20 24 03/02/2024 CBC/C OMPLE TE BLD COUNT W/DIF F immature granulocytes 0.3 % 0.00-0 .50 Not Available [facility] (Lab) [address] [place], [address], 03/02/2024 16:24:37 03/02/20 24 03/02/2024 CBC/C OMPLE TE BLD COUNT W/DIF F neutrophils, absolute count 4.77 x10'3 /uL 1.5-8. 0 Not Available [facility] (Lab) [address] [place], [address], 03/02/2024 16:24:37 03/02/20 24 03/02/2024 CBC/C OMPLE TE BLD COUNT W/DIF F lymphocytes, absolute count 1.50 x10'3 /uL 1.07-3 .43 Not Available [facility] (Lab) [address] [place], [address], 03/02/2024 16:24:37 03/02/20 24 03/02/2024 CBC/C OMPLE TE BLD COUNT W/DIF F monocytes, absolute count 0.83 x10'3 /uL 0.29-0 .99 Not Available [facility] (Lab) [address] [place], [address], 03/02/2024 16:24:37 03/02/20 24 03/02/2024 CBC/C OMPLE TE BLD COUNT W/DIF F eosinophils, absolute count 0.25 x10'3 /uL 0.02-0 .53 Not Available [facility] (Lab) [address] [place], [address], 03/02/2024 16:24:37 03/02/20 24 03/02/2024 CBC/C OMPLE TE BLD COUNT W/DIF F basophils, absolute count 0.08 x10'3 /uL 0.01-0 .08 Not Available [facility] (Lab) [address] [place], [address], 03/02/2024 16:24:37 03/02/20 24 03/02/2024 CBC/C OMPLE TE BLD COUNT W/DIF F immature granulocytes ,absolute 0.02 x10'3 /uL 0.00-0 .05 Not Available [facility] (Lab) [address] [place], [address], 03/02/2024 16:24:37 03/02/2003/02/2024 CBC/C OMPLE TE BLD COUNT W/DIF F nucleated red blood cells 0.0 % -0 Not Available [facility] (Lab) [address] [place], [address], 03/02/2024 16:24:37 03/02/20 24 03/02/2024 CBC/C OMPLE TE BLD COUNT W/DIF F NRBC# 0.00 x10'3 /uL Not Available [facility] (Lab) [address] [place], [address], 03/02/2024 16:24:37 03/02/20 24 03/02/2024 LIPID PANEL cholesterol 154 mg/dL 140-19 9 NIH ANALI NSUS RECOM MENDA TION FOR WON STERO L: ADULT CHILD LOW RISK: <200 <170 BORDE RLINE : <200- 239 ----- HIGH RISK: >240 >200 Not Available [facility] (Lab) [address] [place], [address], 03/02/2024 18:22:47 03/02/2003/02/2024 LIPID PANEL triglyceride s 72 mg/dL 0-150 NIH ANALI NSUS REPOR T RECOM MENDA TION FOR TRIGL YCERI ELAN: ADULT CHILD LOW RISK: <150 ----- BODER LINE: 150-1 99 ----- HIGH RISK: >200 ----- Not Available [facility] (Lab) [address] [place], [address], 03/02/2024 18:22:47 03/02/2003/02/2024 LIPID PANEL HDL cholesterol 90 mg/dL 40- Not Available [facility] (Lab) [address] [place], [address], 03/02/2024 18:22:47 03/02/2003/02/2024 LIPID PANEL LDL cholesterol, calculated 50 mg/dL 0-130 NIH ANALI NSUS REPOR T RECOM MENDA TIONS FOR LDL: ADULT CHILD LOW RISK <130 <110 (OPTI MAL LDL) <100 ----- SHWETA RLINE : 130-1 59 ----- HIGH RISK: >160 >130 A TRIGL YCERI DE RESUL T >400 INVAL IDATE S THE CALCU LATIO N FOR LDL FRACT IONAT ION - THE LDL RESUL T WILL NOT BE REPOR ANUPAM. Not Available [facility] (Lab) [address] [place], [address], 03/02/2024 18:22:47 03/02/2003/02/2024 COMPR EHENS HERMILO METAB OLIC PANEL sodium 132 mmol/ L 137-14 5 low Not Available [facility] (Lab) [address] [place], [address], 03/02/2024 18:22:52 03/02/2003/02/2024 COMPR EHENS HERMILO METAB OLIC PANEL potassium 4.9 mmol/ L 3.5-5. 1 Not Available [facility] (Lab) [address] [place], [address], 03/02/2024 18:22:52 03/02/2003/02/2024 COMPR EHENS HERMILO METAB OLIC PANEL chloride 101 mmol/ L 98-107 Not Available [facility] (Lab) [address] [place], [address], 03/02/2024 18:22:52 03/02/20 24 03/02/2024 COMPR EHENS HERMILO METAB OLIC PANEL carbon dioxide 26 mmol/ L 22-30 Not Available [facility] (Lab) [address] [place], [address], 03/02/2024 18:22:52 03/02/20 24 03/02/2024 COMPR EHENS HERMILO METAB OLIC PANEL anion gap 9.9 mmol/ L 14-22 low Not Available [facility] (Lab) [address] [place], [address], 03/02/2024 18:22:52 03/02/2003/02/2024 COMPR EHENS HERMILO METAB OLIC PANEL glucose 90 mg/dL 70-99 Not Available [facility] (Lab) [address] [place], [address], 03/02/2024 18:22:52 03/02/20 24 03/02/2024 COMPR EHENS HERMILO METAB OLIC PANEL BUN 15 mg/dL 8-19 Not Available [facility] (Lab) [address] [place], [address], 03/02/2024 18:22:52 03/02/20 24 03/02/2024 COMPR EHENS HERMILO METAB OLIC PANEL creatinine 0.92 mg/dL 0.66-1 .25 Not Available [facility] (Lab) [address] [place], [address], 03/02/2024 18:22:52 03/02/20 24 03/02/2024 COMPR EHENS HERMILO METAB OLIC PANEL GFR >60 Refer ence Range : [place] ge GFR Healt hy Adult : >60 mL/mi n/1.7 3 m2 Chron ic Kidne y Disea se: 15-60 mL/mi n/1.7 3 m2 Kidne y Failu re: <15/m L/min /1.73 m2 www.n iddk. nih.g ov The MDRD study equat ion has not been valid ated in child delon <18 years of age; pregn ant women ; the elder ly >85 years of age; or in some racia l or ethni c subgr oups, such as Hislucas nics. Outsi de the valid ated adelaide eters , estim ated GFR is less accur ate, requi ring clini deysi judgm ent on a case- by-ca se basis . Clini deysi inter preta tion for other races and ages must be made by the clini anu. The MDRD study equat ion has not been valid ated for the evalu ation of serum creat inine relat ed to nutri jennifer l statu s or medic ation usage . For perso ns <18 years of age, a pedia tric GFR calcu lator is avail able on the [facility] websi te: https ://[place].joseph lozano.o rg/pr ofess ional s/kdo qi/gf r_cal culat or Not Available [facility] (Lab) [address] [place], [address], 03/02/2024 18:22:52 03/02/2003/02/2024 COMPR EHENS HERMILO METAB OLIC PANEL alkaline phosphatase 85 U/L 38-126 Not Available [facility] (Lab) [address] [place], [address], 03/02/2024 18:22:52 03/02/2003/02/2024 COMPR EHENS HERMILO METAB OLIC PANEL alanine aminotransfe rase 18 U/L 0-50 Not Available [facility] (Lab) [address] [place], [address], 03/02/2024 18:22:52 03/02/2003/02/2024 COMPR EHENS HERMILO METAB OLIC PANEL aspartate aminotransfe rase 31 U/L 15-46 Not Available [facility] (Lab) [address] [place], [address], 03/02/2024 18:22:52 03/02/2003/02/2024 COMPR EHENS HERMILO METAB OLIC PANEL bilirubin, total 1.00 mg/dL 0.20-1 .30 Not Available [facility] (Lab) [address] [place], [address], 03/02/2024 18:22:52 03/02/2003/02/2024 COMPR EHENS HERMILO METAB OLIC PANEL calcium 10.1 mg/dL 8.4-10 .2 Not Available [facility] (Lab) [address] [place], [address], 03/02/2024 18:22:52 03/02/2003/02/2024 COMPR EHENS HERMILO METAB OLIC PANEL total protein 6.9 g/dL 6.3-8. 2 Not Available [facility] (Lab) [address] [place], [address], 03/02/2024 18:22:52 03/02/2003/02/2024 COMPR EHENS HERMILO METAB OLIC PANEL albumin 4.5 g/dL 3.0-4. 4 high Not Available [facility] (Lab) [address] [place], [address], 03/02/2024 18:22:52 03/02/2003/02/2024 COMPR EHENS HERMILO METAB OLIC PANEL globulin 2.4 g/dL 2.6-4. 2 low Not Available [facility] (Lab) [address] [place], [address], 03/02/2024 18:22:52 03/02/2003/02/2024 COMPR EHENS HERMILO METAB OLIC PANEL A/G ratio 1.9 ratio 1.0-2. 0 Not Available [facility] (Lab) [address] [place], [address], 03/02/2024 18:22:52 03/02/2003/02/2024 T4 FREE free T4 1.01 NG/dL 0.78-2 .19 Not Available [facility] (Lab) [address] [place], [address], 03/02/2024 18:30:11 03/02/20 24 03/02/2024 TSH thyroid-stim ulating hormone 1.550 uIU/m L 0.465- 4.680 Not Available [facility] (Lab) [address] [place], [address], 03/02/2024 19:07:34 03/02/2003/02/2024 VITAM IN D 25-HY DROXY [id number] 32.7 NG/mL 30-100 Vitam in D Statu s: Defic ient: <20 ng/mL Insuf ficie nt: 20-29 ng/mL Suffi cient : 30-10 0 ng/mL Not Available [facility] (Lab) [address] [place], [address], 03/02/2024 19:19:54 03/02/2003/02/2024 VITAM IN B12 (JUNITO BANG ) vb12 676 pg/mL 239-93 1 Not Available [facility] (Lab) [address] [place], [address], 03/02/2024 20:32:51 03/02/2003/02/2024 FOLAT E, SERUM /PLAS MA folate >20.0 NG/mL 2.76-2 0.0 Not Available [facility] (Lab) [address] [place], [address], 03/02/2024 20:32:56 03/02/2003/02/2024 HEMOG LOBIN A1C HA1C 5.8 % 4.0-6. 0 Diabe juan francisco Scree andreina Crite holden: <5.7% Consi stent with absen ce of diabe juan francisco 5.7-6 .4% Consi stent with incre ased risk for diabe juan francisco (pred iabet es) >OR=6 .5% Consi stent with diabe juan francisco REFER ENCE: Diabe juan francisco Care 2016, 39(Bell ppl.1 ):s13 -s22 Not Available [facility] ([facility]) [address], [place], [address], 03/02/2024 22:32:59 09/15/19 25 XR, knee, 3 view No observ ation record ed. [email or web address] [id number] [place] [address], [place], [address], 09/14/2024 10:52:07 Result Notes None recorded. Problems Name Problem SNOMED Code Status Onset Date Resolution Date Notes Provider Name and Address Organization Details Recorded Time Nocturia 063574986 Active 2016 Not Available [facility] 3 04:55:51 Wax in ear canal 352343535 Active Not Available [facility] 3 04:55:51 Diverticu litis 292793934 Active 2021 Not Available [facility] 3 04:55:51 Lighthead edness 944951384 Completed Not Available [facility] 3 04:55:51 Dizziness 972507291 Completed Not Available [facility] 3 04:55:51 Coronary atheroscl erosis 284760188 Active Not Available [facility] 3 04:55:51 Bradycard ia 77194433 Completed Not Available [facility] 3 04:55:51 Hyperlipi demia 33110563 Active Not Available [facility] 3 04:55:51 Essential hypertens ion 31878337 Active Not Available [facility] 3 04:55:51 Chronic rhinitis 67714638 Active Not Available [facility] 3 04:55:51 Vitamin D deficienc y 22358968 Active 2022 Hieu wilkerson MD [address], [place], [address] , [facility] 3 12:30:20 Hyperglyc emia 04392961 Active 2022 Hieu wilkerson MD [address], [place], [address] , [facility] [employer] [facility] 3 12:30:25 Skin lesion 26692682 Active 2022 Hieu wilkerson MD [address], [place], [address] , [facility] [employer] [facility] 3 12:30:29 Abdominal pain 81338319 Active 2022 Hieu wilkerson MD [address], [place], [address] , [facility] [employer] [facility] 3 12:30:34 Coronary arteriosc lerosis 30176514 Active 2022 Hieu wilkerson MD [address], [place], [address] , [facility] [employer] [facility] 3 12:30:37 Diplopia 44189792 Active 2022 Hieu wilkerson MD [address], [place], [address] , [facility] [employer] [facility] 3 12:30:44 Anemia 095587373 Active 2022 Hieu wilkerson MD [address], [place], [address] , [facility] [employer] [facility] 3 12:30:53 Environme ntal allergy 857974806 Active 2022 Hieu wilkerson MD [address], [place], [address] , [facility] [employer] [facility] 3 12:32:38 Pain of right shoulder joint 87943084130 266517 Active 2022 Hieu wilkerson MD [address], [place], [address] , [facility] 3 12:56:50 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 94669057344 9100 Active 2022 LUCAS Jo [address], [address], [place], [address] , [facility] 3 11:47:20 Hyponatre gustavo 34655536 Active 2022 Katina Aguirre null, [facility] 3 11:25:34 Vertebral artery stenosis 97915644 Active 2023 Hieu wilkerson MD [address], [address], [place], [address] , [facility] 4 15:25:05 Upper respirato ry infection 02323662 Active 2023 Hieu wilkerson MD [address], [address], [place], [address] , [facility] 4 11:01:14 Nasal congestio n 94329613 Active 2023 Marjorie Skinner CMA null, [facility] 4 14:30:02 Cough 07468573 Active 2024 Marjorie Skinner CMA null, [facility] 5 13:46:32 Edema of foot 226553442 Active 2024 Hieu wilkerson MD [address], [address], [place], [address] , [facility] 5 10:02:33 Edema of lower extremity 203290803 Active 2024 Hieu wilkerson MD [address], [address], [place], [address] , [facility] 5 10:03:22 Urinary incontine sce 817563712 Active 2024 Hieu wilkerson MD [address], [address], [place], [address] , [facility] 11:15:58 Pain of left knee joint 50111430906 4107 Active 2024 Hieu wilkerson MD [address], [address], [place], [address] , [facility] 11:26:47 Notes:Some problems listed i n Documents: #[id number], #[id number] could not be added to this patient's chart. Please review these documents and add these problems to the patient's chart manually as needed. Problem Notes Documentation Provider Name and Address Organization Details Recorded Time Orthopedic Surgeon Consult Note : [facility] [address], [facility] [address]AIPSSBUEAyad BARNHART (id #[id number], : 1950) Documents sent via fax will include the following message: This fax may contain sensitive and confidential personal health information that is being sent for the sole use of the intended recipient. Unintended recipients are directed to securely destroy any materials received. You are hereby notified that the unauthorized disclosure or other unlawful use of this fax or any personal health information is prohibited. To the extent patient information contained in this fax is subject to 42 CFR Part 2, this regulation prohibits unauthorized disclosure of these records. If you received this fax in error, please visit [email or web address] to notify the sender and confirm that the information will be destroyed. If you do not have internet access, please call to notify the sender and confirm that the information will be destroyed. Thank you for your attention and cooperation. [ID:[id number]] , Date: 09/14/2024RE: Jaida Islas MD, I would like to thank you for referring Ayad Barnhart to me for consultation and evaluation of Left knee pain , on 09/14/2024. I have enclosed a copy of the office assessment and plan for your records. Once again, thank you for allowing me to participate in the care of this patient. Sincerely, Electronically Signed by: RUSTAM MARTINEZ MD Assessment/[id number] d male presents for evaluation of his left knee. He reports pain that has been ongoing for years, getting progressively worse. He has a history of knee arthritis as well as a stroke on the right side. He currently rates pain 12/08. He has used topical Voltaren but has not had any other treatments. He also has a history of a bypass and multiple stents, recently switched from Plavix to Eliquis. He is retired. Review of systems per patient questionnaire Physical exam: He has tenderness palpation of the mediolateral joint line. Range of motion 5-130. Stable ligaments. X-rays were reviewed, demonstrating degenerative changes with joint space narrowing particularly medial compartment, osteophytes, sclerosis He has knee osteoarthritis, acute on chronic. We will begin with a course of conservative management with physical therapy. He can not take oral anti-inflammatories because of his blood thinners so he should continue using the Voltaren. We will see him back in 8 weeks after course treatment. If he has persistent symptoms the next step would be to do a cortisone injection. He is in agreement with plan. 1. Pain of left knee [id number]: Pain in left knee XR, KNEE, 3 [facility]ERAPIST REFERRAL - Schedule Within: provider's discretion Note to Provider: Please schedule pt for L knee. Thanks Evaluate & Treat: Per PT Side: LEFT Reason for Referral: L knee # of requested visits: 12 Return to Office Rustam Martinez MD for Any 5 at [facility] Ortho Horatio on 11/09/2024 at 09:05 AM Hieu Callejas MD for Any 15 at [facility] Internal Med [address] on 11/22/2024 at 09:45 AM Hieu Callejas MD [address], [address], [place], [address], [facility] [place] [facility] 10/21/2024 09:52:01 Procedures Surgical History Date Name Laterality Status Provider Name and Address Organization Details Recorded Time 07/05/19 25 Transitional_Ca re_Management completed Hieu Callejas MD [address], [address] [address], [place], [address], [facility] 07/05/2024 09:28:04 04/10/20 24 insertion of carotid artery stent completed Kiara Ta Ba [place] [facility] 05/17/2024 17:06:13 01/26/20 24 Chronic care management services completed Nelida Darling [facility] 01/26/2024 14:43:50 12/22/19 24 Chronic care management services completed Nelida Darling [facility] 12/22/2023 14:15:45 12/08/19 24 Medicare Wellness CPT Code, subsequent completed Jarrett Alberto LPN [place] [facility] 12/01/2023 12:06:46 11/10/19 24 Chronic care management services completed Nelida Darling [facility] 11/10/2023 15:14:21 05/29/20 23 Shoulder completed Kiara Ta [facility] 07/07/2023 10:41:51 10/19/19 09 Colonoscopy completed Not Available [facility] 07/31/19 04:44:13 Cardiac Bypass completed Not Available [facility] 07/30/2022 04:44:13 cataract surgery completed Not Available [facility] 07/30/2022 04:44:13 angiography of carotid artery completed Carissa Monroy MA [facility] 07/05/2024 09:22:03 placement of stent in cardiac conduit completed Carissa Monroy MA [facility] 07/05/2024 09:22:28 Imaging Results None recorded. Procedure Notes None recorded. Medical Equipment None Reported. Allergies Allergen ID Allergen Name Allergen Category Reaction Reaction Severity Criticality Documentation Date Start Date Code Code System Note Provider Name and Address Organization Details Recorded Time 9280 Demerol medicatio n other Not available Not available 07/30/2022 45186 1 RxNorm unkno wn Not Available [facility] 05:07:52 Medications Name Sig Start Date Stop Date Status Note LastModified by Organization Details LastModified Time cyclobenz aprine 10 mg tablet Take 1 tablet as needed by oral route at bedtime. active Not Available Not Available No t Available aspirin 81 mg capsule Take by oral route. 09/02 completed Not Available Not Available Not Available atorvasta tin 40 mg tablet TAKE 1 TABLET EVERY DAY (DOSE INCREASE ) 03/03 completed Not Available Not Available Not Available atorvasta tin 80 mg tablet Take 1 tablet every day by oral route. active Not Available Not Available No t Available atorvasta tin 20 mg tablet Take 1 tablet every day by oral route. 05/06 completed increase d to 40mg Not Available Not Available Not Available cetirizin e 10 mg tablet Take 1 tablet every day by oral route. active Not Available Not Available No t Available atorvasta tin 10 mg tablet Take 1 tablet every day by oral route for 90 days. active Not Available Not Available No t Available azithromy giovanna 250 mg tablet TAKE 2 TABLETS BY MOUTH TODAY, THEN TAKE 1 TABLET DAILY FOR 4 DAYS DIRECTED 03/08 completed Not Available Not Available Not Available aspirin 325 mg tablet TAKE 1 TABLET BY MOUTH EVERY DAY 08/23 completed Not Available Not Available Not Available ofloxacin 0.3 % eye drops INSTILL 1 DROP INTO AFFECTED EYE THREE TIMES A DAY DIRECTED TO BEGIN TWO DAYS PRIOR TO SURGERY 01/10 completed Not Available Not Available Not Available lisinopri l 20 mg tablet Take 1 tablet every day by oral route for 90 days. 11/09 completed Not Available Not Available Not Available atenolol 25 mg tablet 12.5 mg daily 09/03 completed Not Available Not Available Not Available penicilli n V potassium 500 mg tablet 09/03 completed Not Available Not Available Not Available potassium chloride ER 10 mEq tablet,ex tended release Take 1 tablet every day by oral route for 5 days. 08/23 completed Not Available Not Available Not Available clopidogr el 75 mg tablet TAKES 1 TABLET DAILY 07/05 completed Not Available Not Available Not Available ciproflox acin 500 mg tablet TAKE 1 TABLET BY MOUTH TWICE A DAY FOR 7 DAYS 05/06 completed Not Available Not Available Not Available acetamino phen 500 mg tablet TAKE 1 TABLET BY MOUTH EVERY 8 HOURS FOR 14 DAYS. 07/07 completed Not Available Not Available Not Available amoxicill in 500 mg tablet 09/02 completed Not Available Not Available Not Available ketorolac 0.5 % eye drops INSTILL 1 DROP INTO AFFECTED EYE FOUR TIMES A DAY BEGIN USE 2 DAYS BEFORE SURGERY 01/10 completed Not Available Not Available Not Available prednisol one acetate 1 % eye drops,fabiana pension INSTILL 1 DROP INTO SURGICAL EYE 3 TIMES A DAY STARTING AFTER SURGERY 01/10 completed Not Available Not Available Not Available magnesium oxide 400 mg (241.3 mg magnesium ) tablet Take 1 tablet every day by oral route. active Not Available Not Available No t Available tamsulosi n 0.4 mg capsule TAKE 1 CAPSULE BY MOUTH EVERY DAY AT THE SAME TIME EACH DAY AFTER MEALS 09/14 completed Not Available Not Available Not Available Kenalog 10 mg/mL suspensio n for injection IN OFFICE 03/03 completed [facility]: [id number] 4-20 Not Available Not Available Not Available meclizine 25 mg tablet TAKE 1 TABLET BY MOUTH THREE TIMES A DAY active Not Available Not Available No t Available amlodipin e 10 mg tablet TAKE 1 TABLET BY MOUTH EVERY DAY 07/05 completed Not Available Not Available Not Available lisinopri l 10 mg tablet TAKE 1 TABLET BY MOUTH EVERY DAY active Not Available Not Available No t Available magnesium citrate oral solution USE DIRECTED PER BOWEL PREP 09/02 completed Not Available Not Available Not Available folic acid 1 mg tablet Take 1 tablet every day by oral route. active Not Available Not Available No t Available furosemid e 20 mg tablet TAKE 1 TABLET EVERY DAY FOR 5 DAYS 08/23 completed Not Available Not Available Not Available metoprolo l succinate ER 25 mg tablet,ex tended release 24 hr 0.5 tabs daily 07/05 completed Not Available Not Available Not Available methylpre dnisolone 4 mg tablets in a dose pack Take as directed . 07/05 completed Not Available Not Available Not Available celecoxib 100 mg capsule TAKE 1 CAPSULE BY MOUTH TWICE A DAY FOR 2 WEEKS 07/07 completed Not Available Not Available Not Available Vitamin B-1 100 mg tablet TAKE 1 TABLET EVERY DAY (VITAMIN B1) active Not Available Not Available No t Available fluticaso ne propionat e 50 mcg/actua tion nasal spray,fabiana pension USE 2 SPRAYS IN EACH NOSTRIL EVERY EVENING active Not Available Not Available No t Available atenolol 50 mg tablet Take 1 tablet every day by oral route for 90 days. 09/05 completed Not Available Not Available Not Available amoxicill in 875 mg-potass ium clavulana te 125 mg tablet Take 1 tablet every 12 hours by oral route. 07/05 completed Not Available Not Available Not Available oxycodone 5 mg tablet TAKE 1 TABLET (5 MG TOTAL) BY MOUTH EVERY 4 (FOUR) HOURS NEEDED FOR PAIN 07/07 completed Not Available Not Available Not Available ezetimibe 10 mg tablet Take 1 tablet every day by oral route for 90 days. active Not Available Not Available No t Available Senna Plus 8.6 mg-50 mg tablet TAKE 1 TABLET BY MOUTH EVERY DAY 11/09 completed Not Available Not Available Not Available potassium chloride ER 10 mEq tablet,ex tended release(p art/cryst ) TAKE 1 TABLET EVERY DAY FOR 5 DAYS 08/23 completed Not Available Not Available Not Available metoprolo l tartrate 25 mg tablet TAKE 1 (ONE) TABLET BY MOUTH 2 TIMES DAILY active Not Available Not Available No t Available vitamin B complex 100mg TK 1T PO QD 09/11 completed Not Available Not Available Not Available iron 2020 active Not Available Not Available Not Avai lable Aspir-81 1 TAB QD 07/16 completed Not Available Not Available Not Available GaviLyte- N 420 gram oral solution 09/02 completed Not Available Not Available Not Available GaviLyte- G 236 gram-22.7 4 gram-6.74 gram-5.86 gram oral solution 07/07 completed Not Available Not Available Not Available Xarelto 2.5mg 1 bid 09/05 completed by cardiolo gy Not Available Not Available Not Available ropivacai ne (PF) 5 mg/mL (0.5 %) injection solution IN OFFICE 03/03 completed [facility] [id number] 4- Not Available Not Available Not Available Eliquis 5 mg tablet TAKE 1 (ONE) TABLET BY MOUTH 2 TIMES DAILY active Not Available Not Available No t Available Fluzone High-Dose (PF) 180 mcg/0.5 mL intramusc ular syringe ADM 0.5ML IM UTD active Not Available Not Available No t Available Fluzone High-Dose (PF) 180 mcg/0.5 mL intramusc ular syringe TO BE ADMINIST ERED BY PHARMACI ST FOR IMMUNIZA TION 09/03 completed Not Available Not Available Not Available metoprolo l succinate ER 25 mg capsule sprinkle, ext. release 24 hr Take 1 capsule every day by oral route. 03/08 completed Not Available Not Available Not Available Vitals Date Recorded Body height Body mass index (BMI) Body weight Body temperature Heart rate Oxygen saturation Oxygen saturation in Arterial blood by Pulse oximetry Systolic And Diastolic Provider Name and Address Organization Details Last Updated DateTime 5 170.18 cm 27.1 kg/m2 59707.4 8 g 97.8 [degF] 54 /min 98 % 98 % 130/62 mm[Hg] Carissa Monroy MA [facility] 5 09:16:19 Date Recorded Body height Body mass index (BMI) Body weight Body temperature Heart rate Oxygen saturation Oxygen saturation in Arterial blood by Pulse oximetry Systolic And Diastolic Provider Name and Address Organization Details Last Updated DateTime 5 170.18 cm 27.4 kg/m2 81284.6 6 g 96.4 [degF] 57 /min 97 % 97 % 118/62 mm[Hg] Meliza Mattson MA [facility] 5 10:48:54 Date Recorded Body height Body mass index (BMI) Body weight Provider Name and Address Organization Details Last Updated DateTime 09/14/2024 170.18 cm 26.6 kg/m2 23842.7 g ALLEN Quigley [facility] 09/14/2024 10:47:41 Date Recorded Body height Body mass index (BMI) Body weight Body temperature Heart rate Oxygen saturation Oxygen saturation in Arterial blood by Pulse oximetry Systolic And Diastolic Provider Name and Address Organization Details Last Updated DateTime 4 170.18 cm 26.7 kg/m2 72027.5 g 95.8 [degF] 73 /min 99 % 99 % 120/60 mm[Hg] TEO Tam - [facility] [employer] 4 09:22:49 Date Recorded Body height Body mass index (BMI) Body weight Body temperature Heart rate Systolic And Diastolic Provider Name and Address Organization Details Last Updated DateTime 4 170.18 cm 27.7 kg/m2 88173.8 5 g 97.7 [degF] 72 /min 168/64 mm[Hg] ALLEN Cote [place] [facility] 4 17:08:16 Social History Question Answer Notes LastModified by Organization Details LastModified Time Tobacco Smoking Status Former Smoker Not Available [facility] 07/30/2022 04:43:45 Do You Have An Advance Directive? Yes [email or web address] [id number] Information not available 07/30/2022 Do You Wear A Helmet When Biking? No Does Not Bike Information not available 12/08/2023 Are You Blind Or Do You Have Difficulty Seeing? No Getting Cataract Removed Soon MIGRATION.030 [id number] Information not available 07/30/2022 What Is Your Level Of Caffeine Consumption? None [email or web address].030 [id number] Information not available 07/30/2022 How Much Tobacco Do You Chew? None [email or web address].030 [id number] Information not available 07/30/2022 In The 14 Days Before Symptom Onset, Have You Had Close Contact With A Laboratory-conf irmed COVID-19 While That Case Was Ill? No [email or web address].030 [id number] Information not available 07/30/2022 In The 14 Days Before Symptom Onset, Have You Had Close Contact With A Person Who Is Under Investigation For COVID-19 While That Person Was Ill? No [email or web address].030 [id number] Information not available 07/30/2022 Are You Deaf Or Do You Have Serious Difficulty Hearing? No [email or web address].030 [id number] Information not available 07/30/2022 What Type Of Diet Are You Following? REGULAR MIGRATION.030 [id number] Information not available 07/30/2022 Which Illicit Or Recreational Drugs Have You Used? None [email or web address].030 [id number] Information not available 07/30/2022 What Is The Highest Grade Or Level Of School You Have Completed Or The Highest Degree You Have Received? RH15098-2 MIGRATION.030 [id number] Information not available 07/30/2022 How Many Days Of Moderate To Strenuous Exercise, Like A Brisk Walk, Did You Do In The Last 7 Days? 5 Information not available 12/08/2023 On Those Days That You Engage In Moderate To Strenuous Exercise, How Many Minutes, On Average, Do You Exercise? 60 Works Out 3-4 Days [employer]. At [employer] [email or web address] Information not available 12/08/2023 Have There Been Any Changes To Your Family Or Social Situation? No MIGRATION.0301 [id number] Information not available 07/30/2022 What Is The Fluoride Status Of Your Home? Unknown MIGRATION.0301 [id number] Information not available 07/30/2022 When Did You Quit Smoking? 16+yearssincelastc igarette MIGRATION.0301 [id number] Information not available 07/30/2022 Are There Any Guns Present In Your Home? Yes MIGRATION.0301 [id number] Information not available 07/30/2022 Do You Use Insect Repellent Routinely? No MIGRATION.0301 [id number] Information not available 07/30/2022 Where Do You Live? SingleLevelHouse MIGRATION.0301 [id number] Information not available 07/30/2022 Presence Of Domestic Violence No Information not available 12/08/2023 Guns Present In The Home? Yes [email or web address] Information not available 12/08/2023 Are You Able To Care For Yourself? Yes Information not available 12/08/2023 Are You Blind Or Do Yo Have Difficulty Seeing? No [email or web address] Information not available 12/08/2023 Are You Deaf Or Do You Have Serious Difficulty Hearing? No [email or web address] Information not available 12/08/2023 General Stress Level? Moderate [email or web address] Information not available 12/08/2023 Live Alone Of With Others? With Others [email or web address] Information not available 12/08/2023 Do You Have A Medical Power Of Touch Up Painter? Yes MIGRATION.0301 [id number] Information not available 07/30/2022 What Was The Date Of Your Most Recent Tobacco Screening? 09/14/2024 [email or web address] Information not available 09/14/2024 How Many Children Do You Have? 2 [email or web address] Information not available 12/08/2023 Have You Ever Been Counseled For Unhealthy Alcohol Use? No Information not available 12/08/2023 Do You Have Any Pets? Yes MIGRATION.0301 [id number] Information not available 07/30/2022 What Is Your Relationship Status? MIGRATION.0301 [id number] Information not available 07/30/2022 Do You Use Your Seat Belt Or Car Seat Routinely? Yes MIGRATION.0301 [id number] Information not available 07/30/2022 Do You Have Smoke And Carbon Monoxide Detectors In Your Home? Yes 2 Cats 1 Dog [email or web address] Information not available 12/08/2023 At What Age Did You Start Smoking Tobacco? 14 MIGRATION.0301 [id number] Information not available 07/30/2022 Are You Passively Exposed To Smoke? No MIGRATION.0301 [id number] Information not available 07/30/2022 Are There Any Smokers In Your House? No MIGRATION.0301 [id number] Information not available 07/30/2022 How Much Tobacco Do You Smoke? No MIGRATION.0301 [id number] Information not available 07/30/2022 What Types Of Sporting Activities Do You Participate In? Golf [email or web address] Information not available 12/08/2023 Do You Use Sunscreen Routinely? No MIGRATION.0301 [id number] Information not available 07/30/2022 How Many Years Have You Smoked Tobacco? 35 MIGRATION.0301 [id number] Information not available 07/30/2022 Have You Recently Traveled Abroad? No MIGRATION.0301 [id number] Information not available 07/30/2022 Do You Have Difficulty Walking Or Climbing Stairs? Yes Uses Cane At Times [email or web address] Information not available 12/08/2023 Do You Have Any Dietary Restrictions? No [id number] Information not available 07/30/2022 How Many Days In The Past Year Have You Consumed 5 Or More Drinks? 6 [email or web address] Information not available 12/08/2023 Sex: Male Functional Status Question Answer Note LastModified by Organizat ion Details LastModified Time Do you use any illicit or recreational drugs? No MIGRATION.[id number] Information not available 07/30/2022 Do you or have you ever used any other forms of tobacco or nicotine? No MIGRATION.98732 06079 Information not available 07/30/2022 What is your level of alcohol consumption? Moderate 2-3 beers daily [email or web address] Information not available 05/17/2024 Do you or have you ever used smokeless tobacco? Never used smokeless tobacco MIGRATION.58895 14377 Information not available 07/30/2022 Are you currently employed? No Retired [email or web address] Information not available 12/08/2023 Do you have transportation difficulties? No MIGRATION.32852 [id number] Information not available 07/30/2022 Are you able to walk? YESASSIST Uses cane at times [email or web address] Information not available 12/08/2023 Do you have difficulty doing errands alone? No MIGRATION.49997 [id number] Information not available 07/30/2022 Are you able to care for yourself? Yes MIGRATION.43273 47705 Information not available 07/30/2022 Do you have difficulty dressing or bathing? No MIGRATION.67233 14480 Information not available 07/30/2022 Do you or have you ever used e-cigarettes or vape? Never used electronic cigarettes MIGRATION.38335 80330 Information not available 07/30/2022 What is your exercise level? Moderate MIGRATION.41427 [id number] Information not available 07/30/2022 Mental Status Question Answer Note LastModified by Organizat ion Details LastModified Time Do you feel stressed (tense, restless, nervous, or anxious, or unable to sleep at night)? [id number] [id number] 26 Information not available 07/30/2022 Do you have difficulty concentrating, remembering or making decisions? No MIGRATION.[id number] 26 Information not available 07/30/2022 Family History Relationship Description Onset Age of this Age Resolved Age Notes LastModified by Organization Details LastModified Time Mother Old-age Deceas ed [id number] Not available 07/30/2022 04:44:24 Brother Kidney disease [email or web address] Not available 2023 10:40:56 Medical History Condition Response BLINDNESS N NERVE DISEASE N RHEUMATIC FEVER N BLADDER PROBLEMS N KIDNEY STONES N MRSA N OTHER # 1 N POLIO N LUNG DISEASE/DISORDER N RADIATION / CHEMOTHERAPY N COPD N Other # 2 N BLOOD DISEASES N SURGERY N EAR OR HEARING PROBLEMS N MUMPS N DEPRESSION (INCLUDING POST ) N BOWEL PROBLEMS N STROKE/TIA N ULCERS N BENIGN PROSTATIC HYPERPLASIA N MEASLES N MYOCARDIAL INFARCTION N OBESITY N GERD/NAUSEA N ANEURYSM N URINARY/BLADDER/KIDNEY PROBLEMS N CORONARY ARTERY DISEASE (CAD) Y ADDICTION CONCERNS N Impotence N ENDOMETRIOSIS N USE OF BLOOD THINNERS N SKIN PROBLEMS N GASTROINTESTINAL DISORDER N PERIPHERAL VASCULAR DISEASE N MUSCLE,JOINT OR BONE PROBLEMS N GASTROINTESTINAL BLEEDING N BLOOD CLOTS Y ASTHMA N CATARACTS Y ERECTILE DYSFUNCTION N VARICOSITIES N GI PROBLEMS N Low Testosterone N INFERTILITY N AIDS/HIV N CHEMOTHERAPY / RADIATION N LIVER DISEASE N MALE HYPOGONADISM N HYPERTENSION Y Deficiency N ANXIETY DISORDER N BLOOD TRANSFUSION N ANEMIA/BLOOD DISORDER Y CHRONIC EAR INFECTIONS N BRONCHITIS N TUBERCULOSIS N GLAUCOMA N FOOT PROBLEM N DIVERTICULITIS N SLEEP APNEA N CHICKENPOX N INFECTIOUS DISEASE N PROSTATE N HEART ARRHYTHMIA Y INSOMNIA N HIGH CHOLESTEROL / HYPERLIPIDEMIA Y EYE PROBLEMS Y HYPERTHYROIDISM N NEUROLOGICAL PROBLEMS N EDEMA N CHRONIC PAIN SYNDROME N HYPOTHYROIDISM N CONSTIPATION N CAROTID BLOCKAGE N BACK / NECK PROBLEMS N HAVE YOU BEEN HOSPITALIZED OR SEEN IN [facility] IN THE PAST YEAR ? N ATHEROSCLEROSIS N BREAST PROBLEMS N DIALYSIS N ECZEMA N OSTEOPOROSIS N ARTHRITIS Y NO SIGNIFICANT PAST MEDICAL HISTORY N APPENDICITIS N DIABETES, TYPE N BAD TEETH N ENT N HEARTBURN / REFLUX N AUTISM SPECTRUM DISORDER (ASD) N HEPATITIS / LIVER DISEASE N GOUT N SLEEP DISORDER N ALZHEIMER'S DISEASE N Brain Problems N DEMENTIA N HERPES N SEIZURES/EPILEPSY N HEADACHES/MIGRAINES N VASCULAR DISEASE Y PACEMAKER N Blood Disorder N DIZZINESS N HEART DISEASE/HEART PROBLEMS Y KIDNEY DISEASE N MULTIPLE SCLEROSIS N CANCER: SPECIFY N CARDIAC ARRHYTHMIA N ATRIAL FIBRILLATION N Gall Stones N PULMONARY EMBOLISM N AUTOIMMUNE DISEASE N Immunizations Vaccine Type Date Status Note Provider Nam e and Address Organization Details Recorded Time zoster recombinant 3 [facility] [employer] [facility] 11/10/2023 15:06:50 zoster recombinant 3 [facility] [employer] [facility] 11/10/2023 15:06:50 Influenza, high-dose, quadrivalent, PF 1 [facility] [employer] [facility] 11/10/2023 15:06:50 COVID-19, mRNA, LNP-S, bivalent, PF, 50 mcg/0.5 mL or 25mcg/0.25 mL dose 2 [facility] [employer] [facility] 11/10/2023 15:06:51 Influenza, high-dose, trivalent, PF 5 [facility] [employer] [facility] 11/10/2023 15:06:51 RSV, recombinant, protein subunit RSVpreF, adjuvant reconstituted, 0.5 mL, PF 3 completed Kiara Ta RMBa haile, [facility] 12/08/2023 10:24:49 COVID-19, mRNA, LNP-S, PF, 50 mcg/0.5 mL 3 completed Kiara Ta RMBa null, [facility] 12/08/2023 10:24:49 Influenza, high-dose, quadrivalent, PF 3 completed Hieu Callejas MD [address] [place] [address], [id number], [facility] 03/03/2023 17:44:26 COVID-19, mRNA, LNP-S, PF, 100 mcg/0.5mL dose or 50 mcg/0.25mL dose 2 completed ROB Jacome, [facility] 11/10/2023 15:06:50 COVID-19, mRNA, LNP-S, PF, 100 mcg/0.5mL dose or 50 mcg/0.25mL dose 1 completed ROB Jacome, [facility] 11/10/2023 15:06:51 COVID-19, mRNA, LNP-S, PF, 100 mcg/0.5mL dose or 50 mcg/0.25mL dose 1 completed ROB Jacome, [facility] 11/10/2023 15:06:50 COVID-19, mRNA, LNP-S, PF, 100 mcg/0.5mL dose or 50 mcg/0.25mL dose 1 completed ROB Jacome, [facility] 11/10/2023 15:06:50 Influenza, high-dose, trivalent, PF 7 completed ROB Jacome, [facility] 11/10/2023 15:06:51 Influenza, high-dose, trivalent, PF 5 completed Nelida Darling CCM null, [facility] [employer] [facility] 11/10/2023 15:06:51 Influenza, high-dose, quadrivalent, PF 2 completed Not Available [facility] 07/30/2022 05:07:44 Influenza, high-dose, quadrivalent, PF 0 completed Not Available [facility] 07/30/2022 05:07:44 Pneumococcal conjugate PCV 13 7 completed Jarrett Alberto LPN null, [facility] [employer] [facility] 12/02/2023 12:50:27 Influenza, split virus, quadrivalent, PF 6 completed Not Available [facility] 07/30/2022 05:07:44 pneumococcal polysaccharide PPV23 8 completed Not Available [facility] 07/30/2022 05:07:44 Influenza, high-dose, trivalent, PF 4 completed Hieu Callejas MD [address] [place] [address], [place] [address], [place], [address], [facility] [employer] [facility] 03/08/2024 11:12:48 Past Encounters Encounter ID Performer Location Encounter Start Date Encounter Closed Date Diagnosis/Indication Diagnosis SNOMED-CT Code Diagnosis ICD10 Code Diagnosis Note [id number] XIOMARA Vaz [facility] Internal Med [facility] 15 [address]43 [facility], [facility] [address] [place] [address] 08/10/2020 00:00:00 08/10/2020 20:23:08 [id number] Hieu wilkerson MD [facility] Internal Med [facility] 15 2043 [facility], [facility] [address] [place] [address] 09/11/2020 00:00:00 09/19/2020 15:38:49 [id number] MD CORY [facility] Internal Med [facility] 15 [address]43 [facility], [facility] [address] [place] [address] 01/10/2021 00:00:00 01/10/2021 09:37:00 [id number] Hieu wilkerson MD [facility] Internal Med [facility] [address] [place] [address] [place] [address] 07/16/2021 00:00:00 07/16/2021 09:34:57 [id number] Hieu wilkerson MD [facility] Internal Med [facility] [address] [address] 01/14/2022 00:00:00 01/14/2022 10:33:31 [id number] Hieu wilkerson MD [facility] Internal Med [facility] [address] [address] 05/06/2022 00:00:00 05/06/2022 12:29:24 [id number] Hieu wilkerson MD [facility] Internal Med [facility] [address] [address] 11/04/2022 11:43:23 11/04/2022 12:58:39 Screening - NAD [id number] Z13.9 C-scope: 10/18/2008 Dr Headley on, 09/30/17, Dr Mead n, next in 5-10 years UTD on flu shotUTD on PCV #13, 09/05/16, PPV #23 09/09/17Ca n also do Tdap and Shingles vaccineUTD on COVID 19 vaccine RTC in 6 monthsDo labsER if worse he did verbalize his understand ing of the above Hyperlipidemia 83984099 E78.5 On ASAOn plavixOn atorvastat in 40mg dailyDoes [facility] labs Vitamin D deficiency 347 59304 E55.9 Hyperglycemia 46185694 R 73.9 Get an A1C level doneDeclin es any meds at this timeDiet and exercise, he does eat bread and potatoes Skin lesion 67716063 L98 .9 Small flat red lesion noted on the L mid flexor forearmRef er to dermatolog y, Dr Cary, he has seen him in the past Abdominal pain 22332905 R10.[address] A/P with contrast, may need to see GI CT A/P 01/14/2022 : Diverticul itis, see case Coronary arteriosclerosis 98670310 I25.10 ECHO 10/01/2022 S/p CABGSees Dr Trimble cardiology On lisinopril On plavixOn metoprolol Does [facility] Dr Trimble 09/23/2022 , next in 6 months Diplopia 62090016 H53.2 [facility] ER 01/14/2020 : Headche, s/p CT brain, MRI brain, CBC and CMP done S/p MRI/MRA Seen by Dr Valentine and Dr Koo [facility] 02/29/2020 08/27/2020 : Dr Castro: Repeat B1 level, thyroid level 10/11/2021 : Tania Roblero: F/u PRNNo acute complaints at this time Ex-smoker 8060406 Z87.89 1 Quit smoking 20 years ago, does not qualify for LDCT 09/09/17: Neg Anemia 461845800 D64.9 Can do iron with vit C, no acute complaints Repeat the CBC Environmental allergy 42 4072655 T78.49XA On flonase and zyrtec as needed Screening for malignant neoplasm of prostate 251677734 Z12.5 Pain of ri ght shoulder joint [id number] 8406741 M25.511 States that 15 years ago he injured this and was given a steroid shot by Dr Wagoner, refer to Dr Euceda [id number] Jarrett Euceda MD [facility] [address] [place] [address] 11/11/2022 09:48:32 11/11/2022 10:56:41 Pain of right shoulder joint 5207221971 2913749 M25.511 Osteoarthr itis of joint of right shoulder region 0815320444 32242 M19.070 [id number] Hieu wilkerson MD [facility] [place] [address] [facility], [place] [address] [place] [address] 03/03/2023 11:18:16 03/03/2023 11:54:22 Screening - NAD 909656048 Z13.9 C-scope: 10/18/2008 Dr Headley on, 09/30/17, Dr Mead n, next in 5-10 years UTD on flu shotUTD on PCV #13, 09/05/16, PPV #23 09/09/17Ca n also do Tdap and Shingles vaccineUTD on COVID 19 vaccine RTC in 6 monthsDo labsER if worse he did verbalize his understand ing of the above Hyperlipidemia 17778417 E78.5 On ASAOn plavixOn atorvastat in 40mg dailyDoes wellGet labs Vitamin D deficiency 347 56325 E55.9 Hyperglycemia 24582864 R 73.9 Get an A1C level doneDeclin es any meds at this timeDiet and exercise, he does eat bread and potatoes Skin lesion 88681060 L98 .9 Small flat red lesion noted on the L mid flexor forearm Refer to dermatolog y, Dr Cary, he has seen him in the past Abdominal pain 50141526 R10.[address] A/P with contrast, may need to see GI CT A/P 01/14/2022 : Diverticul itis, see case Coronary arteriosclerosis 23082048 I25.10 ECHO 10/01/2022 S/p CABGSees Dr Trimble cardiology On lisinopril On plavixOn metoprolol Does [facility] Dr Trimble 09/23/2022 , next in 6 months Diplopia 21271119 H53.2 [facility] ER 01/14/2020 : Headche, s/p CT brain, MRI brain, CBC and CMP done S/p MRI/MRA Seen by Dr Valentine and Dr Koo [facility] 02/29/2020 08/27/2020 : Dr Castro: Repeat B1 level, thyroid level 10/11/2021 : Tania Roblero: F/u PRNNo acute complaints at this time Ex-smoker 5505923 Z87.89 1 Quit smoking 20 years ago, does not qualify for LDCT 09/09/17: Neg Anemia 888225456 D64.9 Can do iron with vit C, no acute complaints Repeat the CBC, will now see Dr Pandya Environmental allergy 42 3637364 T78.49XA On flonase and zyrtec as needed Screening for malignant neoplasm of prostate 778820988 Z12.5 Pain of ri ght shoulder joint 7531606114 6822127 M25.511 States that 15 years ago he injured this and was given a steroid shot by Dr Wagoner, refer to Dr Euceda 11/11/2022 : Magdiel ZAVALA ortho, s/p kenalogNo relief, will refer to [facility] Antonio caputo Hyponatremia 88878569 E8 7.1 No complaints , will repeat the labs and he will see nephrology Screening for malignant neoplasm of colon 932538935 Z12.11 Administra tion of influenza vaccine 89217926 Z23 [id number] Hieu wilkerson MD [facility] Internal Med [facility] 15 [address]43 [facility], [place] [address] [place] [address] 07/07/2023 10:20:12 07/07/2023 11:07:45 Screening - NAD 626672226 Z13.9 C-scope: 10/18/2008 Dr Headley on, 09/30/17, Dr Alyce caputo, next in 5-10 years, states that he did do the c-scope with Dr Stanley, get the report UTD on flu shotUTD on PCV #13, 09/05/16, PPV #23 09/09/17Ca n also do Tdap and Shingles vaccineUTD on COVID 19 vaccineCan do RSV vaccine RTC in 5 monthsDo labsER if worse he did verbalize his understand ing of the above Hyperlipidemia 25599589 E78.5 On ASAOn plavixOn atorvastat in 80mg dailyDoes [facility] labs Vitamin D deficiency 347 35376 E55.9 Hyperglycemia 45645355 R 73.9 Get an A1C level doneDeclin es any meds at this timeDiet and exercise, he does eat bread and potatoes Skin lesion 93180931 L98 .9 Small flat red lesion noted on the L mid flexor forearm Refer to dermatolog y, Dr Cary, he has seen him in the past, today 07/07/2023 , he denies any complaints , states that he does not want any more referrals Abdominal pain 46591307 R10.9 CT A/P 01/14/2022 : Diverticul itis, see caseDoes well now Coronary arteriosclerosis 68205695 I25.10 ECHO 10/01/2022 S/p CABGSees Dr Trimble cardiology On lisinopril On plavixOn metoprolol Does [facility] Dr Trimble 09/23/2022 , next in 6 monthsDr Trimble [facility] 03/10/2023 , next in 6 months Diplopia 61511804 H53.2 [facility] ER 01/14/2020 : Headche, s/p CT brain, MRI brain, CBC and CMP done S/p MRI/MRA Seen by Dr Valentine and Dr Koo [facility] 02/29/2020 08/27/2020 : Dr Castro: Repeat B1 level, thyroid level 10/11/2021 : Tania Roblero: F/u PRNNo acute complaints at this time Ex-smoker 8711590 Z87.89 1 Quit smoking 20 years ago, does not qualify for LDCT 09/09/17: Neg Anemia 686172375 D64.9 Can do iron with vit C, no acute complaints Repeat the CBCHe will keep his apt with Dr Heaton Environmental allergy 42 0845518 T78.49XA On flonase and zyrtec as needed Pain of ri ght shoulder joint 1283184068 1876666 M25.511 States that 15 years ago he injured this and was given a steroid shot by Dr Wagoner, refer to Dr Euecda 11/11/2022 : Magdiel ZAVALA ortho, s/p kenalogNo relief, will refer to [facility] Dr Antonio Lewis MD [facility] U: 06/17/2023 Hyponatremia 16064674 E8 7.1 No complaints , will repeat the labs, he has declined any referrals today 07/07/2023 , states that he is doing well now [id number] Hieu wilkerson MD [facility] Internal Med [facility] [address] [place] [address] 11/10/2023 15:04:29 11/10/2023 15:23:05 Coronary atherosclerosis 789754625 I25.84 Hyperlipidemia 84435884 E78.5 Essential hypertension 48572921 I10 [id number] Hieu wilkerson MD [facility] Internal Med [facility] [address] [facility] [address] [place] [address] 12/08/2023 10:14:22 12/08/2023 11:00:54 Adult health examination 679247799 Z00.00 Screening for disorder 158687207 Z13.9 Screening - NAD 93143123 3 Z13.9 C-scope: 10/18/2008 Dr Headley on, 09/30/17, Dr Alyce caputo, next in 5-10 years, states that he did do the c-scope with Dr Stanley, get the report-il ope: 04/14/2023 : Dr Stanley, next in 5 years UTD on flu shotUTD on PCV #13, 09/05/16, PPV #23 09/09/17Ca n also do Tdap and Shingles vaccineUTD on COVID 19 vaccineCan do RSV vaccine RTC in 3 monthsDo labsER if worse he did verbalize his understand ing of the above Hyperlipidemia 64838530 E78.5 On ASAOn plavixOn atorvastat in 80mg dailyDoes wellGet labs Vitamin D deficiency 347 79333 E55.9 Hyperglycemia 40047389 R 73.9 Get an A1C level doneDeclin es any meds at this timeDiet and exercise, he does eat bread and potatoes Skin lesion 78701664 L98 .9 Small flat red lesion noted on the L mid flexor forearm Refer to dermatolog y, Dr Cary, he has seen him in the past, today 07/07/2023 , he denies any complaints , states that he does not want any more referrals Abdominal pain 65975813 R10.9 CT A/P 01/14/2022 : Diverticul itis, see caseDoes well now Coronary arteriosclerosis 05414999 I25.10 ECHO 10/01/2022 ECHO 11/16/2023 : EF 70%CT angio 11/05/2023 S/p CABGSees Dr Trimble cardiology On lisinopril On plavixOn metoprolol Does [facility] Dr Trimble 09/23/2022 , next in 6 monthsDr Moreno PAREDES 03/10/2023 , next in 6 monthsDr Moreno PAREDES 11/16/2023 Diplopia 65633582 H53.2 [facility] ER 01/14/2020 : Headche, s/p CT brain, MRI brain, CBC and CMP done S/p MRI/MRA Seen by Dr Valentine and Dr Koo [facility] 02/29/2020 08/27/2020 : Dr Castro: Repeat B1 level, thyroid level 10/11/2021 : Tania Roblero: F/u PRNNo acute complaints at this time Ex-smoker 8023663 Z87.89 1 Quit smoking 20 years ago, does not qualify for LDCT 09/09/17: Neg Anemia 700225162 D64.9 Can do iron with vit C, no acute complaints Repeat the CBCHe will keep his apt with Dr Heaton Environmental allergy 42 4925260 T78.49XA On flonase and zyrtec as needed Pain of ri ght shoulder joint 7237403405 6567436 M25.511 States that 15 years ago he injured this and was given a steroid shot by Dr Wagoner, refer to Dr Euceda 11/11/2022 : Magdiel ZAVALA ortho, s/p kenalogNo relief, will refer to [facility] U Dr Antonio Lewis MD [facility] U: 06/17/2023 , 11/23/2023 Hyponatremia 57374661 E8 7.1 No complaints , will repeat the labs, he has declined any referrals today 07/07/2023 , states that he is doing well nowNa 133 11/30/2023 Vertebral artery stenosis 51321976 I65.09 S/p ER 11/20/2023 , is to see a vascular surgery and neurologyD id see Dr Trimble [facility], did speak with Dr Moreno GIBBS 12/02/2023 , she did tell him to see neurology and vascular surgery OV 12/08/2023 : Is to see vascular surgeonAshish Roblero [facility] neurology 11/18/2023 , to get MRI brain and get CTA in 6-12 months, is to get a stroke clinic aptDid speak with Dr Trimble 12/08/2023 , needs to see Dr Tyrone Mccain in [place] as per her recommenda tions Upper resp iratory infection 75660488 J06.9 Get on z-pack and test for COVID19, flu and strep, hydrate, isolate, ER if worse, he is very appreciati ve to this plan of care [id number] Hieu wilkerson MD [facility] Internal Med [place] [address] [address] 12/22/2023 14:12:05 02/17/2024 19:17:47 Coronary arteriosclerosis 00421083 I25.10 Hyperlipidemia 04592095 E78.5 Essential hypertension 22273842 I10 [id number] Hieu wilkerson MD [facility] Internal Med [facility] [address] [address] 01/26/2024 14:41:14 02/29/2024 19:35:04 Vitamin D deficiency 46805766 E55.9 Coronary arteriosclerosis 98917072 I25.10 Hyperlipidemia 03925780 E78.5 Essential hypertension 74917241 I10 Anemia 756854463 D64.9 [id number] Hieu wilkerson MD [facility] Internal Med [facility] [address] [address] 03/08/2024 09:16:44 03/08/2024 09:43:54 Screening - NAD 327136348 Z13.9 C-scope: 10/18/2008 Dr Headley on, 09/30/17, Dr Alyce caputo, next in 5-10 years, states that he did do the c-scope with Dr Stanley, get the report-il ope: 04/14/2023 : Dr Stanley, next in 5 years UTD on flu shotUTD on PCV #13, 09/05/16, PPV #23 09/09/17Ca n also do Tdap and Shingles vaccineUTD on COVID 19 vaccineCan do RSV vaccine RTC in 2 monthsDo labsER if worse he did verbalize his understand ing of the above Hyperlipidemia 62887762 E78.5 On ASAOn plavixOn atorvastat in 80mg dailyDoes wellGet labs Vitamin D deficiency 347 09018 E55.9 Hyperglycemia 60686966 R 73.9 Get an A1C level doneDeclin es any meds at this timeDiet and exercise, he does eat bread and potatoes Skin lesion 98134772 L98 .9 Small flat red lesion noted on the L mid flexor forearm Refer to dermatolog y, Dr Cary, he has seen him in the past, today 07/07/2023 , he denies any complaints , states that he does not want any more referrals Abdominal pain 00992537 R10.9 CT A/P 01/14/2022 : Diverticul itis, see caseDoes well now Coronary arteriosclerosis 58112619 I25.10 ECHO 10/01/2022 ECHO 11/16/2023 : EF 70%CT angio 11/05/2023 S/p CABGSees Dr Trimble cardiology On lisinopril On plavixOn metoprolol , d/c by [facility] 09/23/2022 , next in 6 monthsDr Moreno [facility] 03/10/2023 , next in 6 monthsDr Moreno [facility] 11/16/2023 , f/u in one month Diplopia 83333552 H53.2 [facility] ER 01/14/2020 : Headche, s/p CT brain, MRI brain, CBC and CMP done S/p MRI/MRA Seen by Dr Valentine and Dr Koo [facility] 02/29/2020 08/27/2020 : Dr Castro: Repeat B1 level, thyroid level 10/11/2021 : Tania Roblero: F/u PRNNo acute complaints at this time Ex-smoker 5605834 Z87.89 1 Quit smoking 20 years ago, does not qualify for LDCT 09/09/17: Neg Anemia 936913020 D64.9 Can do iron with vit C, no acute complaints Repeat the CBCHe will keep his apt with Dr Heaton Environmental allergy 42 2770756 T78.49XA On flonase and zyrtec as needed Pain of ri ght shoulder joint 9513661213 5563799 M25.511 States that 15 years ago he injured this and was given a steroid shot by Dr Wagoner, refer to Dr Euceda 11/11/2022 : Magdiel ZAVALA ortho, s/p kenalogNo relief, will refer to [place] [facility] Antonio Lewis MD [facility] U: 06/17/2023 , 11/23/2023 Hyponatremia 43867613 E8 7.1 No complaints , will repeat the labs, he has declined any referrals today 07/07/2023 , states that he is doing well nowNa 133 11/30/2023 Vertebral artery stenosis 75040636 I65.09 S/p ER 11/20/2023 , is to see a vascular surgery and neurologyD id see Dr Moreno PAREDES, did speak with Dr Moreno GIBBS 12/02/2023 , she did tell him to see neurology and vascular surgery OV 12/08/2023 : Is to see vascular surgeonAhsish Roblero LEAVE SPECIALIST neurology 11/18/2023 , to get MRI brain and get CTA in 6-12 months, is to get a stroke clinic aptDid speak with Dr Trimble 12/08/2023 , needs to see Dr Tyrone Mccain in [place] as per her recommenda tions OV 03/08/2024 :Dr Tyrone Huang vascular neurologis t 02/17/2024 , now to get surgery on 03/10/2024 Upper resp iratory infection 32773446 J06.9 Get on z-pack and test for COVID19, flu and strep, hydrate, isolate, ER if worse, he is very appreciati ve to this plan of care OV 03/10/2024 :COVID 19 +ve 12/10/2023 Now does well, no complaints Administra tion of influenza vaccine [id number] Z23 [id number] Hieu wilkerson MD [facility] Internal Med [facility] 15 [address] [facility], [facility] 15 [place] [address] 05/17/2024 16:54:48 05/17/2024 17:44:02 Screening - NAD [id number] Z13.9 C-scope: 10/18/2008 Dr Headley on, 09/30/17, Dr Mead n, next in 5-10 years, states that he did do the c-scope with Dr Stanley, get the report-il ope: 04/14/2023 : Dr Stanley, next in 5 years UTD on flu shotUTD on PCV #13, 09/05/16, PPV #23 09/09/17Ca n also do Tdap and Shingles vaccineUTD on COVID 19 vaccineCan do RSV vaccine RTC in 2 monthsDo labsER if worse he did verbalize his understand ing of the above Hyperlipidemia 78731475 E78.5 On ASAOn plavixOn atorvastat in 80mg dailyDoes wellGet labs Vitamin D deficiency 347 73410 E55.9 Hyperglycemia 70048372 R 73.9 Get an A1C level doneDeclin es any meds at this timeDiet and exercise, he does eat bread and potatoes Skin lesion 24083937 L98 .9 Small flat red lesion noted on the L mid flexor forearm Refer to dermatolog y, Dr Cary, he has seen him in the past, today 07/07/2023 , he denies any complaints , states that he does not want any more referrals Abdominal pain 86948372 R10.9 CT A/P 01/14/2022 : Diverticul itis, see caseDoes well now Coronary arteriosclerosis 97718997 I25.10 ECHO 10/01/2022 ECHO 11/16/2023 : EF 70%CT angio 11/05/2023 S/p CABGSees Dr Trimble cardiology On lisinopril On plavixNot on metoprolol , d/c by [facility] 09/23/2022 , next in 6 monthsDr Moreno [facility] 03/10/2023 , next in 6 monthsDr Moreno [facility] 11/16/2023 , f/u in one month Diplopia 91347086 H53.2 [facility] ER 01/14/2020 : Headche, s/p CT brain, MRI brain, CBC and CMP done S/p MRI/MRA Seen by Dr Valentine and Dr Koo [facility] 02/29/2020 08/27/2020 : Dr Castro: Repeat B1 level, thyroid level 10/11/2021 : Tania Roblero: F/u PRNNo acute complaints at this time Ex-smoker 2966957 Z87.89 1 Quit smoking 20 years ago, does not qualify for LDCT 09/09/17: Neg Anemia 980928678 D64.9 Can do iron with vit C, no acute complaints Repeat the CBCHe will keep his apt with Dr Heaton Environmental allergy 42 3898078 T78.49XA On flonase and zyrtec as needed Pain of ri ght shoulder joint [id number] 0841599 M25.511 States that 15 years ago he injured this and was given a steroid shot by Dr Wagoner, refer to Dr Euceda 11/11/2022 : Magdiel ZAVALA ortho, s/p kenalogNo relief, will refer to [facility] Dr Antonio Lewis MD [facility]: 06/17/2023 , 11/23/2023 Hyponatremia 60628010 E8 7.1 No complaints , will repeat the labs, he has declined any referrals today 07/07/2023 , states that he is doing well nowNa 133 11/30/2023 Vertebral artery stenosis 12017559 I65.09 S/p ER 11/20/2023 , is to see a vascular surgery and neurologyD id see Dr Moreno PAREDES, did speak with Dr Moreno GIBBS 12/02/2023 , she did tell him to see neurology and vascular surgery OV 12/08/2023 : Is to see vascular surgeonAshish Roblero [facility] neurology 11/18/2023 , to get MRI brain and get CTA in 6-12 months, is to get a stroke clinic aptDid speak with Dr Trimble 12/08/2023 , needs to see Dr Tyrone Mccain in [place] [facility] as per her recommenda tions OV 03/08/2024 :Dr Tyrone Huang vascular neurologis t 02/17/2024 , now to get surgery on 03/10/2024 OV 05/17/2024 : Tania Roblero 04/19/2024 Upper resp iratory infection 96421641 J06.9 Get on z-pack and test for COVID19, flu and strep, hydrate, isolate, ER if worse, he is very appreciati ve to this plan of care OV 03/10/2024 :COVID 19 +ve 12/10/2023 Now does well, no complaints [id number] Hieu wilkerson MD [facility] Internal Med [facility] [address] [facility], [facility] [address] [place] [address] 07/05/2024 09:00:13 07/05/2024 10:38:54 Screening - NAD [id number] Z13.9 C-scope: 10/18/2008 Dr Headley on, 09/30/17, Dr Mead n, next in 5-10 years, states that he did do the c-scope with Dr Stanley, get the report-il ope: 04/14/2023 : Dr Stanley, next in 5 years UTD on flu shotUTD on PCV #13, 09/05/16, PPV #23 09/09/17Ca n also do Tdap and Shingles vaccineUTD on COVID 19 vaccineCan do RSV vaccine RTC in 2 monthsDo labsER if worse he did verbalize his understand ing of the above Hyperlipidemia 56421944 E78.5 On ASAOn plavixOn atorvastat in 80mg dailyDoes [facility] Vitamin D deficiency 347 31576 E55.9 Hyperglycemia 84471917 R 73.9 Get an A1C level doneDeclin es any meds at this timeDiet and exercise, he does eat bread and potatoes Skin lesion 35116934 L98 .9 Small flat red lesion noted on the L mid flexor forearm Refer to dermatolog y, Dr Cary, he has seen him in the past, today 07/07/2023 , he denies any complaints , states that he does not want any more referrals Abdominal pain 94104227 R10.9 CT A/P 01/14/2022 : Diverticul itis, see caseDoes well now Coronary arteriosclerosis 66002035 I25.10 ECHO 10/01/2022 ECHO 11/16/2023 : EF 70%CT angio 11/05/2023 S/p CABGSees Dr Trimble cardiology On lisinopril On plavixNot on metoprolol , d/c by [facility] 11/16/2023 Does Sandrine [facility] Dr Trimble 09/23/2022 , next in 6 monthsDr Moreno [facility] 03/10/2023 , next in 6 monthsDr Moreno [facility] 11/16/2023 , f/u in one month OV 07/05/2024 :S/p d/c from Dr Cuevas 06/21/2024 , seen Dr Trimble [facility] 06/29/2024 , to do cardiac rehabAlso s/p cath and carotid interventi on, noted to have a.fibOn eliquisSto p amlodipine To stop plavix on 09/13/2024 Do cardiac rehab Diplopia 08519160 H53.2 [facility] ER 01/14/2020 : Headche, s/p CT brain, MRI brain, CBC and CMP done S/p MRI/MRA Seen by Dr Valentine and Dr Koo [facility] 02/29/2020 08/27/2020 : Dr Castro: Repeat B1 level, thyroid level 10/11/2021 : Tania Roblero: F/u PRNNo acute complaints at this time Ex-smoker 8625609 Z87.89 1 Quit smoking 20 years ago, does not qualify for LDCT US 09/09/17: Neg Anemia 143093496 D64.9 Can do iron with vit C, no acute complaints Repeat the CBCHe will keep his apt with Dr Heaton Environmental allergy 42 7598029 T78.49XA On flonase and zyrtec as needed Pain of ri ght shoulder joint 6101078544 1419952 M25.511 States that 15 years ago he injured this and was given a steroid shot by Dr Wagoner, refer to Dr Euceda 11/11/2022 : Magdiel ZAVALA ortho, s/p kenalogNo relief, will refer to [facility] Dr Antonio Lewis MD [facility]: 06/17/2023 , 11/23/2023 Hyponatremia 80900523 E8 7.1 No complaints , will repeat the labs, he has declined any referrals today 07/07/2023 , states that he is doing well nowNa 133 11/30/2023 Vertebral artery stenosis 44066081 I65.09 S/p ER 11/20/2023 , is to see a vascular surgery and neurologyD id see Dr Trimble [facility], did speak with Dr Trimble LUIS F 12/02/2023 , she did tell him to see neurology and vascular surgery OV 12/08/2023 : Is to see vascular surgeonAshish Roblero [facility] SPECIALIST neurology 11/18/2023 , to get MRI brain and get CTA in 6-12 months, is to get a stroke clinic aptDid speak with Dr Trimble 12/08/2023 , needs to see Dr Tyrone Mccain [place] as per her recommenda tions OV 03/08/2024 :Dr Tyrone Huang vascular neurologis t 02/17/2024 , now to get surgery on 03/10/2024 OV 05/17/2024 : Tania Roblero 04/19/2024 Edema of l ower extremity 075756237 R60.0 Does have mild LE edema, does c/o some fatigue no obvious SOB, no chest pain, no palpitatio ns, no presyncope or syncopeDid speak with Dr Trimble [facility], and he is to start on lasix and K for 5 days, also Dr Trimble to see him next week and may consider doing cardiovers ion for his a.fib, he is to go to the ER! if any symptoms worse, he did verbalize his understand ing of the above [id number] Hieu wilkerson MD [facility] Internal Med [facility] [address] [facility], [place] [address] 08/23/2024 10:34:15 08/23/2024 11:27:44 Screening - NAD [id number] Z13.9 C-scope: 10/18/2008 Dr Headley on, 09/30/17, Dr Mead n, next in 5-10 years, states that he did do the c-scope with Dr Stanley, get the reportC-il ope: 04/14/2023 : Dr Stanley, next in 5 years UTD on flu shotUTD on PCV #13, 09/05/16, PPV #23 09/09/17Ca n also do Tdap and Shingles vaccineUTD on COVID 19 vaccineCan do RSV vaccine RTC in 3 monthsDo labsER if worse he did verbalize his understand ing of the above Hyperlipidemia 07061804 E78.5 On ASAOn plavixOn atorvastat in 80mg dailyDoes [facility] labs Vitamin D deficiency 347 11704 E55.9 Hyperglycemia 90930226 R 73.9 Get an A1C level doneDeclin es any meds at this timeDiet and exercise, he does eat bread and potatoes Skin lesion 51838330 L98 .9 Small flat red lesion noted on the L mid flexor forearm Refer to dermatolog y, Dr Cary, he has seen him in the past, today 07/07/2023 , he denies any complaints , states that he does not want any more referrals Abdominal pain 44494093 R10.9 CT A/P 01/14/2022 : Diverticul itis, see caseDoes well now Coronary arteriosclerosis 91688829 I25.10 ECHO 10/01/2022 ECHO 11/16/2023 : EF 70%CT angio 11/05/2023 S/p CABGSees Dr Trimble cardiology On lisinopril On plavixNot on metoprolol , d/c by [facility] 09/23/2022 , next in 6 monthsDr Moreno [facility] 03/10/2023 , next in 6 monthsDr Moreno [facility] 11/16/2023 , f/u in one month OV 07/05/2024 :S/p d/c from Dr Cuevas 06/21/2024 , seen Dr Trimble [facility] 06/29/2024 , to do cardiac rehabAlso s/p cath and carotid interventi on, noted to have a.fibOn eliquisSto p amlodipine To stop plavix on 09/13/2024 Do cardiac rehab OV 08/23/2024 :On eliquis 5mg bidOn lisinopril 10mg dailyOn metoprolol 25mg bidSee [facility] Diplopia 87396237 H53.2 [facility] ER 01/14/2020 : Headche, s/p CT brain, MRI brain, CBC and CMP done S/p MRI/MRA Seen by Dr Valentine and Dr Koo [facility] 02/29/2020 08/27/2020 : Dr Castro: Repeat B1 level, thyroid level 10/11/2021 : Tania Roblero: F/u PRNNo acute complaints at this time Ex-smoker 6265113 Z87.89 1 Quit smoking 20 years ago, does not qualify for LDCT US 09/09/17: Neg Anemia 080171156 D64.9 Can do iron with vit C, no acute complaints Repeat the CBCHe will keep his apt with Dr Florina Heaton 07/29/2024 , f/u in 6 months Environmental allergy 42 0581603 T78.49XA On flonase and zyrtec as needed Pain of ri ght shoulder joint 5088315961 6772405 M25.511 States that 15 years ago he injured this and was given a steroid shot by Dr Wagoner, refer to Dr Euceda 11/11/2022 : Magdiel ZAVLAA ortho, s/p kenalogNo relief, will refer to [facility] Dr Antonio Lewis MD [facility]: 06/17/2023 , 11/23/2023 Hyponatremia 05570070 E8 7.1 No complaints , will repeat the labs, he has declined any referrals today 07/07/2023 , states that he is doing well nowNa 133 11/30/2023 Vertebral artery stenosis 40125730 I65.09 S/p ER 11/20/2023 , is to see a vascular surgery and neurologyD id see Dr Moreno GIBBS, did speak with Dr Moreno GIBBS 12/02/2023 , she did tell him to see neurology and vascular surgery OV 12/08/2023 : Is to see vascular surgeonAshish Roblero LEAVE SPECIALIST neurology 11/18/2023 , to get MRI brain and get CTA in 6-12 months, is to get a stroke clinic aptDid speak with Dr Trimble 12/08/2023 , needs to see Dr Tyrone Mccain in [place] as per her recommenda tions OV 03/08/2024 :Dr Tyrone Huang vascular neurologis t 02/17/2024 , now to get surgery on 03/10/2024 OV 05/17/2024 : Tania Roblero 04/19/2024 OV 08/23/2024 : Sees Tania Roblero on 08/31/2024 as per his history Edema of l ower extremity 591253993 R60.0 Does have mild LE edema, does c/o some fatigue no obvious SOB, no chest pain, no palpitatio ns, no presyncope or syncopeDid speak with Dr Moreno GIBBS, and he is to start on lasix and K for 5 days, also Dr Trimble to see him next week and may consider doing cardiovers ion for his a.fib, he is to go to the ER! if any symptoms worse, he did verbalize his understand ing of the above OV 08/23/2024 : Keep apt with Dr Moreno GIBBS on 09/06/2024 Urinary incontinence 165 114269 R32 On flomax given by Tova Flanagan Pain of le ft knee joint 4539067366 73343 M25.562 No acute injury, just 'pain'Will refer to Dr Martinez [id number] Rustam Martinez MD [facility] [place] [address] [place] [address] 09/14/2024 10:17:48 09/14/2024 11:29:49 Pain of left knee joint 8890294591 24344 M25.562 Goals Section Goal Description Progress Status Start Date LastModified by Organization Details LastModified Time Weight Liliana szymanski Exhibits stable weight with normal fluctuation sustaining active 2023 Nelida Darling CCM Information not available 01/26/2024 18:48:50 Blood Pressure Maintains blood pressure goal as defined by care team Progressing active 2023 Nelida Darling CCM Information not available 12/22/2023 18:23:58 Exercise Regularl y Follows a regular exercise regimen or instructed exercise plan as per care team recommendation (s) improving active 2023 Nelida Darling CCM Information not available 01/26/2024 18:48:59 Adequate Sleep Achieves adequate, well-rested sleep with minimal disruption improving active 2023 Nelida Darling CCM Information not available 01/26/2024 18:49:08 Quality of Life Reports satisfaction with quality of life sustaining active 2023 Nelida Darling CCM Information not available 01/26/2024 18:49:19 Fluid Balance Manageme nt Exhibits no signs or symptoms related to fluid imbalance sustaining active 2023 Nelida Darling CCM Information not available 01/26/2024 18:49:27 Activiti es of Daily Living Performs activities of daily living independently or with minimal assistance NoChange active 2023 Nelida Darling CCM Information not available 11/10/2023 19:42:55 Lipid Levels Maintains normal lipid levels as defined by care team NoChange active 2023 Nelida Darling CCM Information not available 11/10/2023 19:42:55 Medicati on Regimen Follows medication regimen as per care team recommendation (s) Progressing active 2023 Nelida Darling CCM Information not available 12/22/2023 18:24:07 Recreati onal Activiti es Participates in recreational activities NoChange active 2023 Nelida Darling CCM Information not available 11/10/2023 19:42:56 Follow-u p Appointm ent(s) Attends referral and/or follow-up appointment(s) as per care team recommendation (s) Progressing active 2023 Nelida Darling CCM Information not available 12/22/2023 18:24:09 Adequate Housing Conditio ns Maintains adequate housing with satisfactory living conditions NoChange active 2023 Nelida Darling CCM Information not available 11/10/2023 19:42:56 Food Security Reports ability to access and obtain foods to meet nutritional needs NoChange active 2023 Nelida Darling CCM Information not available 11/10/2023 19:42:56 Family and Social Support Reports family and/or social support needs are met NoChange active 2023 Nelida Darling CCM Information not available 11/10/2023 19:42:56 Effectiv e Coping Manages life events with effective coping methods [facility] Nelida Darling CCM Information not available 11/10/2023 19:42:56 Vaccinat ion Status Remains up to date on vaccines as per care team recommendation (s) NoChange active 2023 Nelida Darling CCM Information not available 11/10/2023 19:42:56 Home/Env ironment Safety Reports having a safe environment that promotes independence and prevents injury NoChange active 2023 Nelida Darling CCM Information not available 11/10/2023 19:42:56 Diet Adherenc e Follows prescribed or recommended diet [facility] 2023 Nelida Darling CCM Information not available 11/10/2023 19:42:56 Knowledg e of Disease or Conditio n Demonstrates understanding of disease(s) or condition(s) Progressing active 2023 Nelida Darling CCM Information not available 12/22/2023 18:24:18 Activity Toleranc e Reports and/or exhibits normal or improved activity tolerance NoChange active 2023 Nelida Darling CCM Information not available 11/10/2023 19:42:57 Fall Safety Reports no recent falls and/or fall injuries sustaining active 2023 Nelida Darling CCM Information not available 01/26/2024 18:49:46 Financia l Stabilit y Reports financial status and/or income meets needs NoChange active 2023 Nelida Darling CCM Information not available 11/10/2023 19:42:57 Symptom Manageme nt Demonstrates ability to manage and/or control symptoms NoChange active 2023 Nelida Darling CCM Information not available 11/10/2023 19:42:57 Lab Testing Completes lab testing as per care team recommendation (s) NoChange active 2023 Nelida Darling CCM Information not available 11/10/2023 19:42:57 Diagnost ic Testing Completes diagnostic testing as per care team recommendation (s) Progressing active 2023 Nelida Darling CCM Information not available 12/22/2023 18:24:29 Chronic Conditio n Action Plan Follows action plan for any worsening of chronic condition(s) as per care team recommendation (s) Progressing active 2023 Nelida Darling CCM Information not available 12/22/2023 18:24:31 Health Concerns Section Related Observation LastModified by Organization Detai ls LastModified Time None Recorded Concern Status LastModified by Organization Details LastModified Time Essential hypertension Active Nelida Darling CCM Not Maria Fernanda ilable 11/10/2023 19:41:30 Coronary arteriosclerosis Active Nelida Darling CCM Not Available 11/10/2023 19: 41:17 Hyperlipidemia Active Nelida Darling CCM Not Available 0 11/10/2023 19:41:39 Advance Directives Directive Y: Payers Insurance Date Sequence Insurance Name Policy Number Policy Das Covered Member ID Das Member ID Guarantor Name 11/19/2024 1 [employer] - [employer]OLD [employer]US (MEDICARE REPLACEMENT/ ADVANTAGE - HMO) Ayad Barnhart [id number] Ayad Barnhart Notes Date Note Type Note Provider Name and Address Organization Details Recorded Time 03/08/2024 text/html Here to karina Castanon PCP: Dr Gresham Hx:HTNHLDCAD s/p CABGReviewed social family and surgical historyHere to establish care and to discuss aboveHe states that he is doing well at this timeOV 09/02/18:Here for his routine aptFeels wellHe has missed his follow up appointmentsNo recent labs notedOV 09/06/2019:telephone apt, he did agree to do the aptHe states that he is doing very wellHe ROS is negativeno new labsOV 03/06/2020:Here for his routine aptHe states that he is doing very wellHe was seen in the ER for diplopia and has had a MRI/MRA and was then seen by neurologist at [facility] he denies any complaintsStates that he is taking the thiamine and is doing wellHe is here for his flu shot alsoOV 09/11/2020:Here for his routine aptHe feels wellHe is here for his MWV alsoHe did do the labsHe is to get his cataract surgery by Dr MonroeOV 01/10/2021:Here for his routine aptHe is doing wellHe did do the labsOV 07/16/2021:Here for his routine aptHe feels well c/o some allergies with nasal congestion, no fevers or cough or SOBAlso wants to see Dr Cary a child protective services specialist for a lesion on the L foreram for the past 4 months, no pain or itchingHe did do the labs on 2OV 01/14/2022:Here for his routine apt, he did do the labs on 01/06/2022Has noted some mid abdominal pain since past Thursday, crampy, bloatingNo N/V or diarrhea, states that he does have regular BMs, no blood in stool or urine, normal appetiteOV 05/06/2022:Here for his f/u visit, he is doing well, he did do the labs on 04/28/2022 OV 11/04/2022: Here for his f/u apt, he feels well, except he notes R shoulder pain, since 2-3 weeks, no acute injury, 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, did do the labs on 10/24/2022 OV 03/03/2023: Here for his f/u apt, he is doing well today, he did do the labs on 02/24/2023 OV 07/07/2023: Here for his f/u apt, he is doing well, he did do the labs on 06/30/2023, he is s/p surgery for the R shoulder and now is doing PT at [facility] as per his history OV 12/08/2023: Here for his routine apt, he is doing well today, he is here for his MWV, he has seen cardiology and neurologyHas noted some URI sx, cough with 'mucus', some nasal congestion, no fevers or chills, no chest pain or SOB, no loss of taste or smell, no obvious exposure to COVID 19, agreeable to do testing OV 03/08/2024: Here for his f/u apt, he is doing well, he would like to get the flu shot done, he is to now get surgery for his carotids Hieu Callejas MD [address] [facility], [address], [place], [address], [facility] [employer] 03/08/2024 11:17:13 05/17/2024 text/html Here to karina Castanon PCP: Dr Gresham Hx:HTNHLDCAD s/p CABGReviewed social family and surgical historyHere to establish care and to discuss aboveHe states that he is doing well at this timeOV 09/02/18:Here for his routine aptFeels wellHe has missed his follow up appointmentsNo recent labs notedOV 09/06/2019:telephone apt, he did agree to do the aptHe states that he is doing very wellHe ROS is negativeno new labsOV 03/06/2020:Here for his routine aptHe states that he is doing very wellHe was seen in the ER for diplopia and has had a MRI/MRA and was then seen by neurologist at [facility] he denies any complaintsStates that he is taking the thiamine and is doing wellHe is here for his flu shot alsoOV 09/11/2020:Here for his routine aptHe feels wellHe is here for his MWV alsoHe did do the labsHe is to get his cataract surgery by Dr Lester 01/10/2021:Here for his routine aptHe is doing wellHe did do the labsOV 07/16/2021:Here for his routine aptHe feels well c/o some allergies with nasal congestion, no fevers or cough or SOBAlso wants to see Dr Cary a child protective services specialist for a lesion on the L foreram for the past 4 months, no pain or itchingHe did do the labs on 07/09/2021V 01/14/2022:Here for his routine apt, he did do the labs on 01/06/2022Has noted some mid abdominal pain since past Thursday, crampy, bloatingNo N/V or diarrhea, states that he does have regular BMs, no blood in stool or urine, normal appetiteOV 05/06/2022:Here for his f/u visit, he is doing well, he did do the labs on 04/28/2022 OV 11/04/2022: Here for his f/u apt, he feels well, except he notes R shoulder pain, since 2-3 weeks, no acute injury, 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, did do the labs on 10/24/2022 OV 03/03/2023: Here for his f/u apt, he is doing well today, he did do the labs on 02/24/2023 OV 07/07/2023: Here for his f/u apt, he is doing well, he did do the labs on 06/30/2023, he is s/p surgery for the R shoulder and now is doing PT at [facility] as per his history OV 12/08/2023: Here for his routine apt, he is doing well today, he is here for his MWV, he has seen cardiology and neurologyHas noted some URI sx, cough with 'mucus', some nasal congestion, no fevers or chills, no chest pain or SOB, no loss of taste or smell, no obvious exposure to COVID 19, agreeable to do testing OV 03/08/2024: Here for his f/u apt, he is doing well, he would like to get the flu shot done, he is to now get surgery for his carotids OV 05/17/2024: Here for his f/u apt, he is doing very well, he is s/p carotid artery stent and did very well Hieu Callejas MD [address] [facility], [address], [place], [address], [place] [facility] 05/20/2024 20:44:22 07/05/2024 text/html Here to karina Castanon PCP: Dr Gresham Hx:HTNHLDCAD s/p CABGReviewed social family and surgical historyHere to establish care and to discuss aboveHe states that he is doing well at this timeOV 09/02/18:Here for his routine aptFeels wellHe has missed his follow up appointmentsNo recent labs notedOV 09/06/2019:telephone apt, he did agree to do the aptHe states that he is doing very wellHe ROS is negativeno new labsOV 03/06/2020:Here for his routine aptHe states that he is doing very wellHe was seen in the ER for diplopia and has had a MRI/MRA and was then seen by neurologist at [facility] he denies any complaintsStates that he is taking the thiamine and is doing wellHe is here for his flu shot alsoOV 09/11/2020:Here for his routine aptHe feels wellHe is here for his MWV alsoHe did do the labsHe is to get his cataract surgery by Dr Lester 01/10/2021:Here for his routine aptHe is doing wellHe did do the labsOV 07/16/2021:Here for his routine aptHe feels well c/o some allergies with nasal congestion, no fevers or cough or SOBAlso wants to see Dr Cary a child protective services specialist for a lesion on the L foreram for the past 4 months, no pain or itchingHe did do the labs on 2OV 01/14/2022:Here for his routine apt, he did do the labs on 01/06/2022Has noted some mid abdominal pain since past Thursday, crampy, bloatingNo N/V or diarrhea, states that he does have regular BMs, no blood in stool or urine, normal appetiteOV 05/06/2022:Here for his f/u visit, he is doing well, he did do the labs on 04/28/2022 OV 11/04/2022: Here for his f/u apt, he feels well, except he notes R shoulder pain, since 2-3 weeks, no acute injury, 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, did do the labs on 10/24/2022 OV 03/03/2023: Here for his f/u apt, he is doing well today, he did do the labs on 02/24/2023 OV 07/07/2023: Here for his f/u apt, he is doing well, he did do the labs on 06/30/2023, he is s/p surgery for the R shoulder and now is doing PT at [facility] as per his history OV 12/08/2023: Here for his routine apt, he is doing well today, he is here for his MWV, he has seen cardiology and neurologyHas noted some URI sx, cough with 'mucus', some nasal congestion, no fevers or chills, no chest pain or SOB, no loss of taste or smell, no obvious exposure to COVID 19, agreeable to do testing OV 03/08/2024: Here for his f/u apt, he is doing well, he would like to get the flu shot done, he is to now get surgery for his carotids OV 05/17/2024: Here for his f/u apt, he is doing very well, he is s/p carotid artery stent and did very well OV 07/05/2024: Here for his f/u apt, he feels well today, s/p hospital d/c from [facility], seen by Dr Trimble [facility], now in cardiac rehab Hieu Callejas MD [address] [place] [address], [facility] [address], [place], [address], [facility] [employer] [facility] 07/05/2024 13:59:45 08/23/2024 text/html Here to karina Castanon PCP: Dr Gresham Hx:[id number] s/p CABGReviewed social family and surgical historyHere to establish care and to discuss aboveHe states that he is doing well at this timeOV 09/02/18:Here for his routine aptFeels wellHe has missed his follow up appointmentsNo recent labs notedOV 09/06/2019:telephone apt, he did agree to do the aptHe states that he is doing very wellHe ROS is negativeno new labsOV 03/06/2020:Here for his routine aptHe states that he is doing very wellHe was seen in the ER for diplopia and has had a MRI/MRA and was then seen by neurologist at [facility] he denies any complaintsStates that he is taking the thiamine and is doing wellHe is here for his flu shot alsoOV 09/11/2020:Here for his routine aptHe feels wellHe is here for his MWV alsoHe did do the labsHe is to get his cataract surgery by Dr Lester 01/10/2021:Here for his routine aptHe is doing wellHe did do the labsOV 07/16/2021:Here for his routine aptHe feels well c/o some allergies with nasal congestion, no fevers or cough or SOBAlso wants to see Dr Cary a child protective services specialist for a lesion on the L foreram for the past 4 months, no pain or itchingHe did do the labs on 2OV 01/14/2022:Here for his routine apt, he did do the labs on 01/06/2022Has noted some mid abdominal pain since past Thursday, crampy, bloatingNo N/V or diarrhea, states that he does have regular BMs, no blood in stool or urine, normal appetiteOV 05/06/2022:Here for his f/u visit, he is doing well, he did do the labs on 04/28/2022 OV 11/04/2022: Here for his f/u apt, he feels well, except he notes R shoulder pain, since 2-3 weeks, no acute injury, 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, did do the labs on 10/24/2022 OV 03/03/2023: Here for his f/u apt, he is doing well today, he did do the labs on 02/24/2023 OV 07/07/2023: Here for his f/u apt, he is doing well, he did do the labs on 06/30/2023, he is s/p surgery for the R shoulder and now is doing PT at [facility] as per his history OV 12/08/2023: Here for his routine apt, he is doing well today, he is here for his MWV, he has seen cardiology and neurologyHas noted some URI sx, cough with 'mucus', some nasal congestion, no fevers or chills, no chest pain or SOB, no loss of taste or smell, no obvious exposure to COVID 19, agreeable to do testing OV 03/08/2024: Here for his f/u apt, he is doing well, he would like to get the flu shot done, he is to now get surgery for his carotids OV 05/17/2024: Here for his f/u apt, he is doing very well, he is s/p carotid artery stent and did very well OV 07/05/2024: Here for his f/u apt, he feels well today, s/p hospital d/c from [place], seen by Dr Trimble [facility], now in cardiac rehab OV 08/23/2024: Here for his f/u apt, he is doing well today, he has noted L knee pain, no N/T or weakness, no trauma, does state that the LE edema is now much better Hieu Callejas MD [address] [place] [address] [place], [facility] [address], [place], [address], [facility] 08/23/2024 11:28:54
[2024-12-10] MEDS: PREMIXIV IV CONT (05:05)
[2024-12-10] MEDS: HUMAN PROTHROMBIN COMPLEX IV CONT (05:05)
== END 2024-12-10 05:55 | disposition short-term general hospital (02) ==
PROVIDERS: Emergency Provider Emergency Medicine
DX: S06.6X0A Traumatic subarachnoid hemorrhage without loss of consciousness, initial encounter (principal); Z95.0 Presence of cardiac pacemaker; Z79.899 Other long term (current) drug therapy; W18.39XA Other fall on same level, initial encounter
CPT/HCPCS: 70450; 72125; 96365; 99291; J7168